=== PATIENT | female | born 1970 | race African-American/Black ===

== ENCOUNTER 2024-09-30 11:36 | Outpatient (CLI) | payer OTHER, SELFPAY ==
--- OUTSIDE RECORDS SUMMARY | 2024-09-30 11:41 | XMS_ITS | Clinical Summary ---
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 01/11/2016 Regular Well Visit/Exam 18-64 06/11/2024 06/11/2023, 07/03/2020 Pneumococcal vaccine <65 (3 of 3 - PPSV23 or PCV20) 06/15/2024 06/15/2019, 10/08/2018 Albumin Creatinine Ratio, Urine 11/03/2024 Dilated Eye Exam 02/15/2025 02/16/2024 eGFR 06/15/2025 06/15/2024, 05/18, 04/16/2024, Additional history exists Breast Cancer Screening-Mammogram 07/01/2025 07/01/2024, 07/01/2024, 05/02/2022, Additional history exists Lipid Panel 09/20/2025 09/20/2024, 10/16, 06/17/2023, Additional history exists Colon Cancer Screening-Colonoscopy 07/06/2030 07/06/2020 DTaP/Tdap/Td Vaccine (8 - Td or Tdap) 10/29/2032 10/29/2022, 12/31/2021, 10/08/2018, Additional history exists Colon Cancer Screening-CT Colonography Discontinued 07/06/2020 Colon Cancer Screening-DNA Stool Discontinued 07/06/20 20 Colon Cancer Screening-FIT Discontinued 07/06/2020 Colon Cancer Screening-Sigmoidoscopy Discontinued 07/06/2020 Zoster Vaccine Completed 08/22/2020, 05/19, 05/17/2020 Cervical Cancer Screening Discontinued 06/11/2023, Procedures Procedure Name Priority Date/Time Associated Diagnosis Comments BOTOX INJECTION Routine 07/22/2024 1:30 PM JET OPERATOR Intractable chronic migraine without aura and without status migrainosus EGFR STAT 06/15/2024 2:40 PM CDT DIABETIC EYE EXAM Routine 02/16/2024 2:0 5 PM CDT HEMOGLOBIN A1C Routine 11/04/2023 11:15 AM CDT Adrenal mass (HCC) Type 2 diabetes mellitus with other specified complication, unspecified whether assistant terminal manager insulin use (HCC) LIPID PANEL Routine 11/04/2023 11:15 AM CDT Adrenal mass (HCC) Type 2 diabetes mellitus with other specified complication, unspecified whether fci insulin use (HCC) ALBUMIN CREATININE RATIO, URINE Routine 11/04/2023 11:15 AM CDT Adrenal mass (HCC) Type 2 diabetes mellitus with other specified complication, unspecified whether assistant terminal manager insulin use (HCC) PAP AND HIGH RISK HPV, REFLEX TO GENOTYPING Routine 06/11/2023 11:48 AM CDT Encounter for screening for malignant neoplasm of cervix COLONOSCOPY Routine 07/06/2020 SCREENING MAMMOGRAM BILATERAL W LENY Routine 12/31/2016 12:28 PM CDT from Last 3 Months or Most Recently Relevant to Health Maintenance Results * Botox Injection (07/22/2024 1:30 PM JET OPERATOR) Narrative Ritika Treadwell - 07/22/2024 1:30 PM JET OPERATOR Ritika Treadwell 07/23/2024 12:25 PM Botox Injection Performed by: Xiomara Hernandez NP Authorized by: Xiomara Hernandez NP [place] Protocol: Consent Given by: Patient Timeout: prior to procedure the correct patient, procedure, and site was verified Procedure Details - Botox Injection: Procedure Details: See Botox flow sheet for details on injection sites and amounts. This can be found in Media and labeled BLVLE NEURO.BOTOX.PROCEDURE NOTES. Procedure Note Ritika Treadwell - 07/22/2024 1:30 PM CST Botox Injection Performed by: Xiomaar Hernandez NP Authorized by: Xiomara Hernandez NP [place] Protocol: Consent Given by: Patient Timeout: prior to procedure the correct patient, procedure, and site wasverified Procedure Details - Botox Injection: Procedure Details: See Botox flow sheet for details on injection sitesand amounts. This can be found in Media and labeled [email or web address].[email or web address].PROCEDURE NOTES. Xiomara Hernandez NP IN CLINIC/BEDSIDE ORDERABLES Final Result * eGFR (06/15/2024 2:40 PM CDT) eGFR >90 >=60 mL/min/1. 73 m2 Comment: Interpretive Data Reference Interval Normal >/= 90 mL/min/1.73m2 Mildly decreased* 60 - 89 mL/min/1.73m2 Mildly to moderately decreased 45 - 59 mL/min/1.73m2 Moderately to severely decreased 30 - 44 mL/min/1.73m2 Severely decreased 15 - 29 mL/min/1.73m2 Kidney Failure < 15 mL/min/1.73m2 *Relative to young adult level Estimated glomerular filtration rate is determined by the 2020 CKD-EPI equation recommended by the National Kidney Foundation (A Unifying Approach to GFR Estimation: Recommendations of the NKF-ASK Task Force on Reassessing the Inclusion of Race in Diagnosing Kidney Disease, JASN 2020). The CKD-EPI equation should not be used for patients with unstable renal function and has not been validated in children and those over 70. Current interpretive data was last reviewed 2021. Testing performed by: [facility], [address] [place] [address], [place]., [address] Blood 06/15/2024 2:40 PM CDT 06/15/2024 2:50 PM CDT us Chris Lopez Jr., MD LAB BLOOD ORDERABLES Fi nal Result Performing Organization Address City/[facility]/ZIP Co de Phone Number RAYMON [address] [facility] Department of Laboratories [place], [place] [id number] * Diabetic Eye Exam (02/16/2024 2:05 PM CDT) us Historical Provider HEALTH MAINTENANCE Final Result * (ABNORMAL) Albumin Creatinine Ratio, Urine (11/04/2023 11:15 AM CDT) Microalb, Ur 22.7 0.0 - 22.9 mg/L [facility] Random Urine Creatinine 60.7 mg/dL [facility] Microalb/Creat Ratio 37.4(H) 0.0 - 29.9 mg/g [facility] Urine 11/04/2023 11:1 5 AM CDT 11/04/2023 12:42 PM CDT us Bita Irby MD LAB URINE ORDERABLES Final Res ult Performing Organization Address City/[facility]/ZIP Co de Phone Number [facility] * (ABNORMAL) Hemoglobin A1c (11/04/2023 11:15 AM CDT) HbA1c 6.9(H) 5.1 - 5.6 % [facility] Comment: HBA1C 5.1 - 5.6 = NORMAL HBA1C 5.7 - 6.4 = PREDIABETES HBA1C >=6.5 = PROVISIONAL DIAGNOSIS OF DIABETES Estimated Average Glucose 151 mg/dL [facility] Blood 11/04/2023 11:1 5 AM CDT 11/04/2023 12:42 PM CDT Bita Irby MD LAB BLOOD ORDERABLES Final Res ult Performing Organization Address City/[facility]/ZIP Co de Phone Number [facility] * (ABNORMAL) Lipid panel (11/04/2023 11:15 AM CDT) Triglycerides 211(H) <150 mg/dL [facility] Comment: Desirable: <150 mg/dL, fasting <175 mg/dL, non-fasting Persistently elevated triglycerides may enhance atherosclerotic cardiovascular disease. Total Cholesterol 153 <200 mg/dL [facility] Total HDL-C Direct 54 >50 mg/dL [facility] Non-HDL cholesterol 99 <220 mg/dL [facility] Friedewald LDL Chol 57 <190 mg/dL [facility] Comment: The inaccuracy of the Friedewald equation at LDL Cholesterol less than 70 mg/dL has been documented. Various other calculations are under investigation, such as Noel De, et al. BRENNA Cardiol. 2020;5(5):540-548 or Jarvis SS et al. BRENNA Cardiol. 2018;3(8):749-753. Consider the use of non-HDL-c to estimate atherosclerotic cardiovascular disease risk. The Friedewald equation is accurate in most patients when triglycerides are less than 150 mg/dL. Consider the use of non-HDL-C or Apo B to help estimate atherosclerotic cardiovascular diesase risk if triglycerides are elevated. Blood 11/04/2023 11:1 5 AM CDT 11/04/2023 12:42 PM CDT Narrative [facility] - 11/04/2023 1:37 PM CDT Current interpretive data was last updated July 20, 2021. For adults ages 40-79, the ACC/AHA recommends discussing your 10-year atherosclerotic cardiovascular disease risk with your health care provider. https://www.acc.org/ASCVDApp Bita Irby MD LAB BLOOD ORDERABLES Final Res ult [facility] * Pap and High Risk HPV and Genotyping (Cytology Component) (06/11/2023 11:48 AM CDT) Endocervical (Pap test) 06/11/2023 11:48 AM CDT 06/13/2023 11:48 AM CDT Narrative [facility] - 06/17/2023 3:27 PM CDT [facility] Department of Pathology [address] [place] [address] Final Report with Addendum Note to Patients: This report may contain a detailed description of human tissue sent by a health care provider to the laboratory for pathologic evaluation. The content of this report is essential for diagnosis and may provide important critical findings. This information may be unfamiliar to patients to review without a medical professional present. It is advised that the patient review this report in the presence of a health care provider who can answer questions and explain the details. Patient Name: COLIN BOYD Address: [address] [place] [address] [address] [place] [address] Gender: F : 1970 (Age: 53) Service: Location: [facility] : [id number] [facility] #: [id number] Patient Type: [facility] SPECIMEN Taken: 06/11/2023 Received: 06/13/2023 Accessioned:: 06/13/2023 Reported: 06/17/2023 Physician(s): Edmond Bruno M.D. [facility] Diagnosis: SOURCE OF SPECIMEN SCREENING THIN PREP IMAGED PAP w/ HPV: STATEMENT OF ADEQUACY - Satisfactory for evaluation; endocervical/transformation zone component present - This case was rejected by computer assisted technology and was manually screened by a sales counselor GENERAL CATEGORIZATION: - Negative for intraepithelial lesion or malignancy LEVON Gong(ASCP)LEVON Lerma(ASCP) Report Electronically Reviewed and Signed Out By LEVON Lerma(ASCP) 06/17/2023 15:27:53Addenda: HPV Test Interpretation HPV HR 16- Not detected HPV HR 18- Not detected HPV HR non 16/18- Detected Interpretive Data Nucleic acid amplification for detection of high-risk Human Papilloma virus (HPV) is performed by the Bebe Andi 6800 HPV test. This assay specifically detects HPV-16 and HPV-18 genotypes. The following HPV genotypes are detected as high-risk HPV: HPV-31, 33, 35, 39, 45, 51, 52, 56, 58, 59, 66, and 68. This assay has been approved by the [place] Food and Drug Administration for detection of HPV in cervical specimens collected by a physician using an endocervical brush/spatula or cervical broom and placed in the ThinPrep Pap Test PreservCyt collection containers. The performance characteristics of this test have been verified by the [facility] Molecular Infectious Disease laboratory. Correlate with reported cytology results, as applicable. Interpretive data last revised 23 LEVON Lerma(ASCP)Report Electronically Reviewed and Signed Out By LEVON Lerma(ASCP) 06/16/2023 08:27:17 Specimen(s) Received: A: SCREENING THIN PREP IMAGED PAP w/ HPV Clinical History: Menstrual History: Hysterectomy Routine Checkup The Pap test is a screening test used to aid in the detection of cervical cancer and its precursors. It should not be the sole means by which malignant and premalignant lesions are diagnosed. Both false negative and false positive results may occur. It also has poor sensitivity for the detection of endometrial lesions and should not be used to evaluate suspected endometrial abnormalities. For these reasons it is most important to obtain Pap tests at regular intervals. The performance characteristics of some immunohistochemical stains, fluorescence in-situ hybridization tests and immunophenotyping by flow cytometry cited in this report (if any) were determined by the Surgical Pathology Department at [facility] as part of an ongoing quality process lead program and in compliance with federally mandated regulations drawn from the Clinical Laboratory Improvement Act of 1988 (CLIA '88). Some of these tests rely on the use of analyte specific reagents and are subject to specific labeling requirements by the US Food and Drug Administration. Such diagnostic tests may only be performed in a facility that is certified by the Department of Health and Human Services as a high complexity laboratory under CLIA '88. The FDA has determined that such clearance or approval is not necessary. This test is used for clinical purposes. It should not be regarded as investigational or for research. Nevertheless, federal rules concerning the medical use of analyte specific reagents require that the following disclaimer be attached to the report: This test was developed and [facility] performance characteristics [facility]. It has not been cleared or approved by the U. S. Food and Drug Administration. Edmond Bruno MD LAB CYTOLOGY ORDERABLES Final Result [facility] * Colonoscopy (07/06/2020) Anatomical Region Laterality Modality Other Historical Provider ENDOSCOPY PROCEDURES Zulma l Result from Last 3 Months or Most Recently Relevant to Health Maintenance Additional Health Concerns Infection Onset Date Last Indicated MDR gram neg/ESBL Comment:Patients who received care at a healthcare facility outside of the [place] will be placed in Contact Precautions until infection or colonization with specific highly resistant bacteria can be ruled out. Infection Prevention will arrange screening. Please contact Infection Prevention. 01/16/2024 01/16/2024 Insurance [employer] [facility] P[facility] Care Teams Historic Interpreter Relationship Specialty Start Date End Date Shruthi Modi MD [address] [facility] [place] [address] PCP - General Family Practice 10/24/21 Fabrizio Thomason Jr., MD Medical Oncologist/Hematologis t Medical Oncology 03/02/21 Dmityr Laguna MD [address] [facility] [place] [address] Referring Physician Endocrinology Diabetes & Metabolism 05/21/23
--- OUTSIDE RECORDS SUMMARY | 2024-09-30 11:41 | XMS_ITS | Encounter Summary ---
Author Organization [facility] Facility Care Team Providers Care Roll Mechanic Name Role Phone Paddy Riley MD, Fabrizio Unavailable [phone] Chris Mahmood DO Primary Care Provider + No, Physician Primary Care Provider [phone] Shruthi Modi MD Primary Care Provider Dmitry Laguna MD Unavailable [phone] Encounter Details Date Type Department Care Team (Latest Contact Info) Description 11/25/2016 Orders Only [facility] CLINCONV ProviderRay MD [address] [place] [id number] Social History Tobacco Use Types Packs/Day Years Used Date Smoking Tobacco: Never Assessed Comments Unknown Sex and Gender Information Value Date Recorded Sex Assigned at Not on file Legal Sex Female 6:55 AM SYSTEMS ENGINEERING MANAGER Gender Identity Female 07/23/2020 8:34 PM SYSTEMS ENGINEERING MANAGER Sexual Orientation Straight 07/23/2020 8: 34 PM SYSTEMS ENGINEERING MANAGER documented as of this encounter Plan of Treatment Not on file documented as of this encounter Procedures Procedure Name Priority Date/Time Associated Diagnosis Comments CARDIOLOGY REPORT 12/30/2016 12: 00 AM CDT documented in this encounter Results * CARDIOLOGY REPORT (12/30/2016 12:00 AM CDT) Anatomical Region Laterality Modality Other Narrative 12/30/2016 12:00 AM CDT Ordered by an unspecified provider. us Historical Provider [facility] Final Result documented in this encounter Visit Diagnoses Not on filedocumented in this encounter Additional Health Concerns Infection Onset Date Last Indicated Resolved Time COVID: Suspected 04/05/2021 04/10/2021 04/11/2021 12:24 AM CDT MDR gram neg/ESBL Comment:Patients who received care at a healthcare facility outside of the [place] will be placed in Contact Precautions until infection or colonization with specific highly resistant bacteria can be ruled out. Infection Prevention will arrange screening. Please contact Infection Prevention. 01/16/2024 01/16/2024 documented as of this encounter Care Teams Roll Mechanic Relationship Specialty Start Date End Date Chris Mahmood DO [address] [place] [id number] PCP - General Family Medicine 07/05/21 10/04/21 No, Physician PCP - General 10/15/21 10/23/21 Shruthi Modi MD [address] [place] [address] PCP - General Family Practice 10/24/21 Fabrizio Thomason Jr., MD Medical Oncologist/Hematologis t Medical Oncology 03/02/21 Dmitry Laguna MD [address] [facility] [place] [address] Referring Physician Endocrinology Diabetes & Metabolism 05/21/23 documented as of this encounter
--- OUTSIDE RECORDS SUMMARY | 2024-09-30 11:41 | XMS_ITS | Referral Summary ---
Author Organization [facility] Address [address] [place] [address] Care Team Providers Care [employer] Name Role Phone Paddy Riley MD, Fabrizio Unavailable [phone] Shruthi Modi MD Primary Care Provider Dmitry Laguna MD Unavailable [phone] Encounters Date Type Department Care Team Description 09/21/2024 Telephone [facility] Endocrinology Metabolism and Lipid [address] [facility] [address] 5th [place] [address] [place] [phone] Regla Gil, sales estimator Results 09/14/2024 Orders Only [facility] Medical [facility] Obstetrical Gynecology [address] [place] [address] [place] [phone] Edmond Bruno MD 09/14/2024 Telephone [facility] Obstetrical Gynecology [address] [place] [address] [address] [place] [address] Edmond Bruno MD 09/08/2024 Telephone [facility] Endocrinology Metabolism and Lipid [address] [facility] [address] [place] [phone] Regla Gil, DEWEY Follow-up 09/08/2024 10:40 AM AUDITOR INTERNAL Office Visit [facility] Endocrinology Metabolism and Lipid [address] [place] [address] [place] [address] Bita Irby MD Type 2 diabetes mellitus with hyperglycemia, without long-term current use of insulin (HCC) (Primary Dx); Osteopenia, unspecified location; Compression fracture of lumbar vertebra, unspecified lumbar vertebral level, sequela 08/31/2024 Telephone [facility] Endocrinology Metabolism and Lipid [address] [place] [address] [place] [address] Regla Gil RN CGM 07/22/2024 1:30 PM AUDITOR INTERNAL Procedure visit [facility] Medical Group Neurology [address] [facility] [address] [place] [address] Xiomara Hernandez NP Intractable chronic migraine without aura and without status migrainosus from Last 3 Months Allergies Active Allergy Reactions Criticality Noted Date [...] puff 2 (two) times a day 10/02/19 23 Active Auvelity 45-105 mg tablet, IR & ER, biphasic Take 1 tablet by mouth 2 (two) times a day Active cloNIDine (CATAPRES) 0.1 mg tablet 06/04/20 23 Active amLODIPine (NORVASC) 10 mg tablet 06/02/20 23 Active HYDROcodone-aceta minophen (NORCO) 5-325 mg per tablet Take 1 tablet by mouth 2 (two) times a day as needed 06/18/20 Active UribeL 118-10-40.8-36 mg capsule TAKE 1 CAPSULE BY MOUTH EVERY 6 HOURS NEEDED 10/28/19 Active prednisoLONE acetate (PRED FORTE) 1 % ophthalmic suspension 09/22/19 Active rimegepant (Nurtec ODT) tablet,disintegra ting Take 1 tablet (75 mg total) by mouth daily 4 tablet 01/21/20 Active cycloSPORINE (Vevye) 0.1 % drops 10/02/19 Active ondansetron ODT (ZOFRAN-ODT) 4 mg disintegrating tablet 01/11/20 Active Qelbree 200 mg capsule,extended release 24hr Take 2 capsules (400 mg total) by mouth daily 02/09/20 Active lancets (Accu-Chek Fastclix Lancet Drum) miscIndications:T ype 2 diabetes mellitus with hyperglycemia, without long-term current use of insulin (HCC) Use to check blood sugar 2-3 times per day. 102 each 11 03/02/20 Active blood glucose diagnostic (Accu-Chek Guide test strips) stripIndications: Type 2 diabetes mellitus with hyperglycemia, without long-term current use of insulin (HCC) Use to test blood sugar 2-3 times per day. 100 strip 11 03/02/20 Active baclofen (LIORESAL) 10 mg tablet Take 1 tablet (10 mg total) by mouth 3 (three) times a day as needed 03/09/20 Active galcanezumab-gnlm 120 mg/mL pen injector Inject 120 mg under the skin every 30 (thirty) days 1 mL 5 03/24/20 Active lancing device with lancets kit Use to check blood sugar 2-3 times per day. 03/02/20 Active galcanezumab-gnlm (Emgality Pen) 120 mg/mL pen injector Inject 120 mg under the skin every 30 (thirty) days 2 mL 05/17/20 Active apixaban 5 mg (74 tabs) tablets,dose [...] (twelve) hours Active blood-glucose meter,continuous (Dexcom G6 Manager Quality Compliance) misc Use as directed 1 each 09/08/19 [...] by mouth 2 (two) times a day 12/10/19 22 2024 Discontinued viloxazine HCl (QELBREE ORAL) 100 mg 2024 Discontinued tiZANidine (ZANAFLEX) 4 mg tablet Take 1 tablet (4 mg total) by mouth 2 (two) times a day 01/13/20 2024 Discontinued potassium chloride ER (KLOR-CON) 20 mEq CR tabletIndications :Low blood potassium Take 1 tablet (20 mEq total) by mouth daily 10 tablet 02/03/20 24 2024 Discontinued Lotemax SM 0.38 % drops,gel INSTILL 1 DROP INTO BOTH EYES THREE TIMES DAILY 02/13/20 24 2024 Discontinued Linzess 290 mcg capsule 01/20/20 24 2024 Discontinued dexAMETHasone (DECADRON) 1 mg tabletIndications :Adrenal mass (HCC) Take 1 tablet when directed 1 tablet 03/16/20 24 2024 Discontinued rimegepant (NURTEC ODT) tablet,disintegra ting Take [...] STARTING AFTER SURGERY. CONTINUE FOR 3 WEEKS 04/08/202024 Discontinued rimegepant (Nurtec ODT) tablet,disintegra ting Take [...] 09/09/2020 Assessment & Plan (09/09/2020 7:50 AM AUDITOR INTERNAL): Discussed CDC guideline for quarantine. Drink plenty [...] CDT): Patient is a former patient of [facility] being treated with combination migraine prophylaxis [...] year. Cardiac murmur 11/26/2016 Narcotic abuse, continuous ([facility]) 09/16/2016 Drug-seeking behavior 08/21/2016 IBS (irritable bowel syndrome) 01/02/2016 Beta thalassemia trait 08/14/2015 Acute nausea with nonbilious vomiting 12/08/2013 Anxiety 08/18/1999 Gastric ulcer 08/18/1999 Severe major depression 05/21/1993 High cholesterol Overview (06/11/2023): high triglicerides Resolved Problems Problem Noted Date Diagnosed Date Resolved Date IFG (impaired fasting glucose) 01/02/2016 11/04/2023 Immunizations Name Administration Dates Next Due DTaP 12/18/2015 Influenza, Quadrivalent, Rec ombinant, Egg Free, Preservative Free, Intramuscular 06/15/2019 Influenza, Quadrivalent, Spl it, Preservative Free, Intramuscular 06/12/2022,05/17/2020,05/22/2018,05/10 Influenza, Split 06/01/2010,09/06/2005 Influenza, Trivalent, IM (MDV) 05/22/2021,2016 Influenza, Trivalent, Preser vative Free, Intramuscular 07/18/2016,07/06/2015 Influenza, Unspecified 05/17/2020,2018,05/22/2018,06/01,09/06/2005 EyeNetra SARS-CoV-2 Monovalent Vaccination (12+ Yrs) AVILA-READY TO USE 12/27/2021 Pneumococcal Conjugate PCV 13 10/08/2018 Pneumococcal Polysaccharide PPV23 06/15/2019 Smallpox/monkeypox Vaccine, Live, Non-replicating (Jynneos) 03/29/2022 TD Preservative Free 01/01/2016,09/25/2004 Td, Adsorbed, Preservative F ree, Adult Use, Lf Unspecified 01/01/2016,09/25/2004 Td, adsorbed 09/25/2004 Tdap 12/31/2021,10/08/2018,12/18/2015 ZOSTER LIVE 06/15/2020 ZOSTER Recombinant 08/22/2020,05/17/2020 Social History Tobacco Use Types Packs/Day Years [...] on file Legal Sex 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 INTERNAL Gender Identity Female 07/23/2020 8:34 PM AUDITOR INTERNAL Sexual Orientation Straight 07/23/2020 8: 34 PM AUDITOR INTERNAL Last Filed Vital Signs Vital Sign Reading Time Taken Comments Blood Pressure 114/75 09/08/2024 11:09 AM AUDITOR INTERNAL Pulse 81 09/08/2024 11:09 AM AUDITOR INTERNAL Temperature 36.5 C (97.7 F) 09/08/2024 11:09 AM AUDITOR INTERNAL Respiratory Rate 16 06/15/2024 8:35 PM CDT Oxygen Saturation 100% 06/15/2024 8:35 PM CDT Inhaled Oxygen Concentration - - Weight 68 kg (150 lb) 09/08/2024 11:09 AM AUDITOR INTERNAL Height 167.6 cm (5' 6 ) 09/08/2024 11:09 AM AUDITOR INTERNAL Body Mass Index 24.21 09/08/2024 11:09 AM AUDITOR INTERNAL Plan of Treatment Not on file Procedures Procedure Name Priority Date/Time Associated Diagnosis Comments BOTOX INJECTION Routine 07/22/2024 1:30 PM AUDITOR INTERNAL Intractable chronic migraine without aura and without status migrainosus EGFR STAT 06/15/2024 2:40 PM CDT DIABETIC EYE EXAM Routine 02/16/2024 2:0 5 PM CDT HEMOGLOBIN A1C Routine 11/04/2023 11:15 AM CDT Adrenal mass (HCC) Type 2 diabetes mellitus with other specified complication, unspecified whether middle or 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 school 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 use (HCC) LIPID PANEL Routine 11/04/2023 11:15 AM CDT Adrenal mass (HCC) Type 2 diabetes mellitus with other specified complication, unspecified whether detention insulin use (HCC) ALBUMIN CREATININE RATIO, URINE Routine 11/04/2023 11:15 AM CDT Adrenal mass (HCC) Type 2 diabetes mellitus with other specified complication, unspecified whether 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 or 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 school 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 use (HCC) PAP AND HIGH RISK HPV, REFLEX TO GENOTYPING Routine 06/11/2023 11:48 AM CDT Encounter for screening for malignant neoplasm of cervix COLONOSCOPY Routine 07/06/2020 SCREENING MAMMOGRAM BILATERAL W LENY Routine 12/31/2016 12:28 PM CDT from Last 3 Months or Most Recently Relevant to Health Maintenance Results * Botox Injection (07/22/2024 1:30 PM AUDITOR INTERNAL) Narrative Ritika Treadwell - 07/22/2024 1:30 PM AUDITOR INTERNAL Ritika Treadwell 07/23/2024 12:25 PM Botox Injection Performed by: Xiomara Hernandez NP Authorized by: Xiomara Hernandez NP [place] Protocol: Consent Given by: Patient Timeout: prior to procedure the correct patient, procedure, and site was verified Procedure Details - Botox Injection: Procedure Details: See Botox flow sheet for details on injection sites and amounts. This can be found in Media and labeled BLVLE [email or web address].[email or web address].PROCEDURE NOTES. Procedure Note Ritika Treadwell - 07/22/2024 1:30 PM CST Botox Injection Performed by: Xiomara Hernandez NP Authorized by: Xiomara Hernandez NP [place] Protocol: Consent Given by: Patient Timeout: prior [...] was last reviewed 2021. Testing performed by: [facility], [address] [place] [address]., [id number] Blood 06/15/2024 2:40 PM CDT 06/15/2024 2:50 PM CDT us Chris Lopez Jr., MD LAB BLOOD ORDERABLES Fi nal Result Performing Organization Address [facility] Co de Phone Number RAYMON [address] [facility] Department [place] [address] * Diabetic Eye Exam (02/16/2024 2:05 PM [...] MD LAB URINE ORDERABLES Final Res ult [facility] * (ABNORMAL) [...] PM CDT us Bita Irby MD LAB BLOOD ORDERABLES Final Res ult [facility] * (ABNORMAL) [...] calculations are under investigation, such as Noel De et al. BRENNA Cardiol. 2020;5(5):540-548 or Jarvis [...] AM CDT 11/04/2023 12:42 PM CDT Narrative [facility] - 11/04/2023 1:37 PM CDT Current interpretive data was last updated July 20, 2021. For adults ages 40-79, the ACC/AHA recommends discussing your 10-year atherosclerotic cardiovascular disease risk with your health care provider. https://www.acc.org/ASCVDApp us Bita Irby MD LAB BLOOD ORDERABLES Final Res ult [facility] * Pap and High Risk HPV and Genotyping (Cytology Component) (06/11/2023 11:48 AM CDT) Endocervical (Pap test) 06/11/2023 11:48 AM CDT 06/13/2023 11:48 AM CDT Narrative PATHOLOGY [facility] - 06/17/2023 3:27 PM CDT [facility] Department of Pathology [address] [place], [place] [id number] Final Report with Addendum Note to Patients: [...] the details. Patient Name: COLIN BOYD Address: [address] [place] [address] [address] RICH[address] [place] [address] Gender: F : 1970 (Age: 53) Service: Location: [facility] : [id number] [facility] #: [id number] Patient Type: [facility] SPECIMEN Taken: 06/11/2023 Received: 06/13/2023 Accessioned:: 06/13/2023 Reported: 06/17/2023 Physician(s): Edmond Bruno M.D. [facility] Diagnosis: SOURCE OF SPECIMEN SCREENING THIN PREP IMAGED PAP w/ HPV: STATEMENT OF ADEQUACY - Satisfactory for evaluation; endocervical/transformation zone component present - This case was rejected by computer assisted technology and was manually screened by a ccna GENERAL CATEGORIZATION: - Negative for intraepithelial lesion [...] this test have been verified by the [facility] Molecular Infectious Disease laboratory. Correlate with reported [...] determined by the Surgical Pathology Department at [facility] as part of an ongoing quality assurance coordinator program and in compliance with federally mandated [...] characteristics determined by the Surgical Pathology Department [facility]. It has not been cleared or approved by the U. S. Food and Drug Administration. Edmond Bruno MD LAB CYTOLOGY ORDERABLES Final Result PATHOLOGY [facility] * Colonoscopy (07/06/2020) Anatomical Region [...] Please contact Infection Prevention. 01/16/2024 01/16/[address] [place] [address] [place] [address] [facility] PPO [facility] PPO [facility] Care Teams [employer] Relationship Specialty Start Date End Date Shruthi Modi MD [address] [facility] [place] [address] PCP - General Family Practice 10/24/21 Fabrizio Thomaosn Jr., MD Medical Oncologist/Hematologis t Medical Oncology 03/02/21 Dmitry Laguna MD [address] [facility] [place] [address] Referring Physician Endocrinology Diabetes & Metabolism 05/21/23
--- OUTSIDE RECORDS SUMMARY | 2024-09-30 11:41 | XMS_ITS | Patient Health Summary ---
Author Organization [facility] Address [address] [place] [address] Care Team Providers Care Can Closing Machine Tender Name Role Phone Charlene Murillo MD Unavailable [phone] Lenin Frances MD Unavailable [phone] Sylvester Brown MD Unavailable [phone] Cornell Bingham MD Unavailable [phone] Pcp, [address] Primary Care Provide r Unavailable Note from [facility],non-owned Affiliates and Associated Physician Practices is amultiple site organization consisting of ambulatory clinics and hospital sitesin [place], [place], [place] and [place]. This disclosure is being madepursuant to the Care Everywhere program and may not contain all information available regarding this patient. Last updated 18.[facility] Allergies * Prochlorperazine(Tolerates phenergan, Feels jittery, like 'bugs crawling under skin'. Trouble sitting still) * Dhea(Other) * Dihydroergotamine(Causes HTN) * Haloperidol * Sumatriptan * Droperidol(Itching) * Metoclopramide * Sulfa Drugs(Anaphylaxis) -High Criticality * Ketorolac(Causes ulcers in her stomach to get worse. Not truly allergic.) Medications * Be aware that medications may not be up to date on this document. Alwaysverify current medications with the patient. * oogfthsxnl-ugasgyeyssqrq-hpmgtfsk (FIORICET) 50-300-40 MG capsule Take 1 Cap by mouth every 4 hours as needed for Headache * furosemide (LASIX) 20 MG tablet(Started 03/12/2018) Take 1 tablet by mouth once daily 5 refills left * fenofibrate (TRICOR) 145 MG tablet(Started 02/18/2018) Take 1 tablet by mouth at bedtime * rosuvastatin (CRESTOR) 10 MG tablet(Started 02/20/2018) Take 1 tablet by mouth at bedtime 5 refills left * latanoprost (XALATAN) 0.005 % ophthalmic solution(Started 01/16/2018) Instill 1 drop into both eyes at bedtime 6 refills left * zolpidem (AMBIEN) 10 MG tablet(Started 10/08/2018) Take 1 tablet by mouth nightly as needed for Insomnia Reasons: Trouble Sleeping * escitalopram (LEXAPRO) 20 MG tablet(Started 10/08/2018) Take 1.5 tablets by mouth once daily * amLODIPine (NORVASC) 10 MG tablet(Started 12/18/2018) Take 10 mg by mouth once daily * Estradiol (IMVEXXY STARTER PACK) 10 MCG INST Insert 10 mcg into the vagina * vitamin D, ergocalciferol, (DRISDOL) 1.25 MG (96367 UT) capsule Take 50,000 Units by mouth every 30 days * FOLIC ACID PO * oxyCODONE-acetaminophen (PERCOCET) 5-325 MG tablet(Started 08/02/2019) Take 1 tablet by mouth every 4 hours as needed for Pain * spironolactone (ALDACTONE) 25 MG tablet(Started 10/12/2019) * propranolol CR 24hr (INDERAL LA) 120 MG capsule Take 120 mg by mouth once daily * hydrALAZINE (APRESOLINE) 25 MG tablet Take 25 mg by mouth 3 times daily take 3 tablets three times a day * ARIPiprazole (ABILIFY) 20 MG tablet Take 20 mg by mouth once daily * atomoxetine (STRATTERA) 80 MG capsule Take 80 mg by mouth every morning * topiramate (TOPAMAX) 100 MG tablet Take 100 mg by mouth 2 times daily * fremanezumab-vfrm (AJOVY) 225 MG/1.5ML injection(Started 12/15/2019) Inject 225 mg subcutaneously every 30 days Reasons: Migraine Headache * ipratropium (ATROVENT) 0.03 % nasal spray(Started 12/15/2019) [place] 1 spray into each nostril 2 times daily 5 refills by 12/14/2020 * azelastine (ASTELIN) 0.1 % nasal spray(Started 12/15/2019) U 2 SPRAYS IEN BID 5 refills by 12/14/2020 * esomeprazole (NEXIUM) 40 MG capsule(Started 03/10/2020) Take 1 capsule by mouth once daily as needed FOR HEARTBURN 1 refill by 03/10/2021 * buPROPion XL 24hr (WELLBUTRIN-XL) 150 MG tablet(Started 05/15/2020) TK 1 T PO QD IN THE MORNING * clobetasol (TEMOVATE) 0.05 % cream(Started 03/03/2019) Apply to affected area 2 times daily * diclofenac sodium (SOLARAZE) 3 % gel(Started 06/08/2020) Apply 2 to 4 grams to the affected area twice daily * diclofenac sodium XR 24hr (VOLTAREN XR) 100 MG tablet(Started 05/12/2020) Take 100 mg by mouth 2 times daily * hydrocortisone (HYTONE) 2.5 % ointment(Started 01/11/2020) PAMELA 1 GRAM AA BID PRN * lidocaine (XYLOCAINE) 5 % ointment(Started 05/11/2020) APPLY AA D FOR PAIN * NARCAN 4 MG/0.1ML nasal spray(Started 01/27/2020) USE 1 SPRAY IN THE NOSTRILS DIRECTED * ondansetron (ZOFRAN) 8 MG tablet(Started 06/14/2020) TK 1 T PO BID PRN * lisinopril (PRINIVIL; ZESTRIL) 20 MG tablet(Started 06/08/2020) Take 20 mg by mouth 2 times daily Active Problems Problem Noted Date Diagnosed Date Chronic bilateral thoracic back pain 08/02/2019 Thalassemia trait 12/24/2016 Immunizations * INFLUENZA VACCINE(Given 05/17/2020, 05/22/2018, 05/25/2017, 07/18/2016, 07/06/2015, 05/10/2014, 06/01/2010, 09/06/2005) * INFLUENZA VACCINE, QUADR. (FLUZONE; FLULAVAL; FLUARIX; AFLURIA QUADRIVALENT; 6MO+), 0.5 ML (IIV4)(Given 05/17/2020) * PNEUMOCOCCAL PPSV23(Given 06/15/2019) * Pneumococcal Pcv13 Conj(Given 10/08/2018) * TD (AGE 7-ADULT)(Given 09/25/2004) * TDAP (7yrs+)(Given 10/08/2018, 12/18/2015) * Zoster Hzv Vacc Recombinant Inj Im(Given 08/22/2020, 05/17/2020) * iNFLUENZA VACCINE, RECOM-NGUYEN, QUADR. (FLUBLOCK QUADRIVALENT; 18Y+) (RIV4)(Given 06/15/2019) Social History Tobacco Use Types Packs/Day Years Used Date Smoking Tobacco: Every Day Cigarettes 0.5 7 Smokeless Tobacco: Never Tobacco Cessation:Ready to Q uit: No; Counseling Given: Yes Alcohol Use Standard Drinks/Week Comments Not Currently 0 (1 standard drink = 0.6 oz pur e alcohol) Sex and Gender Information Value Date Recorded Sex Assigned at Not on file Gender Identity Not on file Sexual Orientation Not on file Last Filed Vital Signs Vital Sign Reading Time Taken Comments Blood Pressure 120/74 06/27/2020 11:23 AM PLASTIC CABLEMAKING MACHINE OPERATOR Pulse 60 06/27/2020 11:23 AM PLASTIC CABLEMAKING MACHINE OPERATOR Temperature 35.7 C (96.3 F) 06/27/2020 11:23 AM PLASTIC CABLEMAKING MACHINE OPERATOR Respiratory Rate 14 06/27/2020 11:23 AM PLASTIC CABLEMAKING MACHINE OPERATOR Oxygen Saturation 100% 06/27/2020 11:23 AM PLASTIC CABLEMAKING MACHINE OPERATOR Inhaled Oxygen Concentration - - Weight 70.8 kg (156 lb) 06/27/2020 11:23 AM PLASTIC CABLEMAKING MACHINE OPERATOR Height 167.6 cm (5' 6 ) 06/27/2020 11:23 AM PLASTIC CABLEMAKING MACHINE OPERATOR Body Mass Index 25.18 06/27/2020 11:23 AM PLASTIC CABLEMAKING MACHINE OPERATOR Procedures * URINALYSIS - POINT OF CARE(Performed 06/15/2019) Performed for Dysuria * PAP IG LB + HPV HR(Performed 11/05/2018) Performed for Well woman exam with routine gynecological exam * LIPID PROFILE(Performed 10/08/2018) * COMPREHENSIVE METABOLIC PANEL(Performed 10/08/2018) * CBC W AUTO DIFFERENTIAL(Performed 12/24/2016) * BASIC METABOLIC PANEL (CALCIUM TOTAL)(Performed 12/24/2016) * CBC W AUTO DIFFERENTIAL(Performed 12/24/2016) * CT ABDOMEN PELVIS WO CONTRAST(Performed 12/24/2016) * URINALYSIS REFLEX TO MICROSCOPIC NO CULTURE(Performed 12/24/2016) * CARDIAC EKG ORDER(Performed 12/23/2016) * ED GENERAL PROCEDURE(Performed 12/21/2016) * TROPONIN I(Performed 12/21/2016) * CARDIAC EKG ORDER(Performed 12/20/2016) * URINE MICROSCOPIC ONLY(Performed 12/20/2016) * URINALYSIS REFLEX TO MICROSCOPIC NO CULTURE(Performed 12/20/2016) * EKG 12-LEAD(Performed 12/20/2016) Performed for Dizziness * MAGNESIUM BLOOD(Performed 12/20/2016) * TROPONIN I(Performed 12/20/2016) * COMPREHENSIVE METABOLIC PANEL(Performed 12/20/2016) * CBC W AUTO DIFFERENTIAL(Performed 12/20/2016) * CARDIAC EKG ORDER(Performed 12/20/2016) * TROPONIN I(Performed 12/20/2016) * COMPREHENSIVE METABOLIC PANEL(Performed 12/19/2016) * CBC W AUTO DIFFERENTIAL(Performed 12/19/2016) * TROPONIN I(Performed 12/19/2016) * EKG 12-LEAD(Performed 12/19/2016) Performed for Other chest pain * CBC W AUTO DIFFERENTIAL(Performed 12/19/2016) * COMPREHENSIVE METABOLIC PANEL(Performed 12/18/2016) * TROPONIN I(Performed 12/18/2016) * XR CHEST 2VW(Performed 12/18/2016) Performed for Other chest pain * EKG 12-LEAD(Performed 12/18/2016) Performed for Other chest pain * CARDIAC EKG ORDER(Performed 12/17/2016) * CARDIAC RHYTHM STRIP ORDER(Performed 12/17/2016) * TROPONIN I(Performed 12/15/2016) Performed for Chest pain, unspecified type * EKG 12-LEAD(Performed 12/15/2016) Performed for Chest pain, unspecified type * CBC W AUTO DIFFERENTIAL(Performed 12/15/2016) Performed for HTN (hypertension) with goal to be determined * BASIC METABOLIC PANEL (CALCIUM TOTAL)(Performed 12/15/2016) Performed for HTN (hypertension) with goal to be determined * EKG 12-LEAD(Performed 12/14/2016) Performed for Chest pain, unspecified type * TROPONIN I(Performed 12/14/2016) * COMPREHENSIVE METABOLIC PANEL(Performed 12/13/2016) * TROPONIN I(Performed 12/13/2016) * SLIDE SCAN HEMATOLOGY(Performed 12/13/2016) * CBC W AUTO DIFFERENTIAL(Performed 12/13/2016) * TROPONIN I(Performed 12/13/2016) * EKG 12-LEAD(Performed 12/13/2016) Performed for Chest pain, unspecified type * OXYGEN(Performed 12/13/2016) * CARDIAC EKG ORDER(Performed 12/12/2016) * CARDIAC RHYTHM STRIP ORDER(Performed 12/12/2016) * CT HEAD WO CONTRAST(Performed 12/10/2016) Performed for Nonintractable headache, unspecified chronicity pattern, unspecified headache type * TROPONIN I(Performed 12/10/2016) Performed for Chest pain, unspecified type * ED CRITICAL CARE(Performed 12/10/2016) Performed for HTN (hypertension), malignant * TROPONIN I(Performed 12/10/2016) * TROPONIN I(Performed 12/10/2016) * XR CHEST 2VW(Performed 12/10/2016) Performed for Chest pain, unspecified type * URINE DRUG SCREEN IMMUNOASSAY(Performed 12/10/2016) * URINALYSIS REFLEX MICROSCOPIC REFLEX CULTURE(Performed 12/10/2016) * SLIDE SCAN HEMATOLOGY(Performed 12/10/2016) * COMPREHENSIVE METABOLIC PANEL(Performed 12/10/2016) * CBC W AUTO DIFFERENTIAL(Performed 12/10/2016) * TROPONIN I(Performed 12/10/2016) * EKG 12-LEAD(Performed 12/09/2016) Performed for Chest pain, unspecified type * CT HEAD WO CONTRAST(Performed 05/05/2014) * XR CHEST 1VW PORTABLE(Performed 05/05/2014) * TROPONIN I(Performed 05/05/2014) * CK + CKMB PANEL(Performed 05/05/2014) * DRUG ABUSE PANEL 10-20+ETHANOL URINE NO CONFIRM(Performed 05/05/2014) * URINALYSIS REFLEX TO MICROSCOPIC NO CULTURE(Performed 05/05/2014) * RBC MORPHOLOGY(Performed 05/05/2014) * CBC W AUTO DIFFERENTIAL(Performed 05/05/2014) * CBC W AUTO DIFFERENTIAL(Performed 05/05/2014) * BASIC METABOLIC PANEL (CALCIUM TOTAL)(Performed 05/05/2014) Results * URINALYSIS - POINT OF CARE (06/15/2019) Clarity UA POCT yellow Color UA POCT yellow Leukocyte UA neg Negative Nitrite UA POCT neg Negative Urobilinogen UA 0.2 0.1 - 1.0 Protein UA POCT neg Negative pH UA 6.0 5.0 - 8.0 pH units Blood UA neg Negative Specific [place] UA POCT 1.020 1.002 - 1.030 Ketone UA neg Negative Bilirubin UA POCT neg Negative Glucose UA neg Negative Urine URINE / Unknown 06/15/2019 Williams Avalos MD LAB - POINT OF CARE ORDERABLES * (ABNORMAL) PAP IG LB + HPV HR (11/05/2018 2:32 PM CDT) Diagnosis (A) [facility] INSURANCE BILL Comment: EPITHELIAL CELL ABNORMALITY. LOW-GRADE SQUAMOUS INTRAEPITHELIAL LESION (LSIL) (VAGINAL). Recommendation (A) [facility] INSURANCE BILL Comment:Suggest follow up as clinically appropriate. Specimen Adequacy [facility] INSURANCE BILL Comment:Satisfactory for giuliano luation. Clinician Provided ICD10 [facility] INSURANCE BILL Comment: Z01.419 Z12.31 Performed by [facility] INSURANCE BILL Comment:Francis Croft, Cyto technologist (ASCP) Electronically Signed by [facility] INSURANCE BILL Comment:Hortencia Lamas MD, Pathologist Comment . [facility] INSURANCE BILL Pathologist Provided ICD10 [facility] INSURANCE BILL Comment:R87.622 Note [facility] INSURANCE BILL Comment: The Pap smear is a screening test designed to aid in the detection of premalignant and malignant conditions of the uterine cervix. It is not a diagnostic procedure and should not be used as the sole means of detecting cervical cancer. Both false-positive and false-negative reports do occur. . [facility]BP CPT Code Automation [facility] INSURANCE BILL Comment: This liquid based ThinPrep(R) pap test was screened with the use of an image guided system. Human papillomavirus High Risk Positive( A) Negative [facility] INSURANCE BILL Comment: This high-risk HPV test detects thirteen high-risk types (16/18/31/33/35/39/45/51/52/56/58/59/68) without differentiation. . Pathology/Cytolog y PART OF UTERINE CERVIX / Unknown 11/05/2018 2:32 PM CDT 11/05/2018 Narrative [facility] INSURANCE BILL - 11/09/2018 3:09 PM CDT Dates / Results....previous hysterectomy No. of containers..01 ThinPrep Vial Resulting Agency Comment [address] [place] [phone] Natali Whiteside PSYCHOLOGIST DEVELOPMENTAL-BACKEND DEVELOPER LAB - PATHOLOGY/CY TOLOGY ORDERABLES [facility] INSURANCE BILL [address] [place] [address] * COMPREHENSIVE METABOLIC PANEL (10/08/2018 1:18 PM PLASTIC CABLEMAKING MACHINE OPERATOR) Only the most recent of6 resultswithin the time period is included. Glucose 98 74 - 106 mg/dL [facility] INSURANCE BILL BUN 17 7 - 21 mg/dL [facility] INSURANCE BILL Creatinine 0.79 0.50 - 1.30 mg/dL [facility] INSURANCE BILL eGFR by MDRD >60 >60 mL/min/1.7 3m2 [facility] INSURANCE BILL eGFR by MDRD >60 >60 mL/min/1.7 3m2 [facility] INSURANCE BILL Sodium 141 136 - 145 mmol/L [facility] INSURANCE BILL Potassium 4.2 3.5 - 5.1 mmol/L [facility] INSURANCE BILL Chloride 106 98 - 107 mmol/L [facility] INSURANCE BILL CO2 27 22 - 31 mmol/L [facility] INSURANCE BILL Calcium 10.0 8.5 - 10.1 mg/dL [facility] INSURANCE BILL Protein Total 8.0 6.4 - 8.2 gm/dL [facility] INSURANCE BILL Albumin 4.6 3.4 - 5.0 gm/dL [facility] INSURANCE BILL Bilirubin Total 0.6 0.2 - 1.0 mg/dL [facility] INSURANCE BILL Alkaline Phosphatase 108 38 - 126 U/L [facility] INSURANCE BILL AST 15 5 - 40 U/L [facility] INSURANCE BILL ALT 20 13 - 61 U/L [facility] INSURANCE BILL Comment:FASTING 10/08/2018 1:18 PM PLASTIC CABLEMAKING MACHINE OPERATOR 10/08/2018 Narrative Resulting Agency Comment [address] [phone] Williams Avalos MD LAB - CHEMISTRY KAREN HOLLINS [facility] INSURANCE BILL [address] [place] [address] * LIPID PROFILE (10/08/2018 1:18 PM PLASTIC CABLEMAKING MACHINE OPERATOR) Cholesterol 166 <200 mg/dL [facility] INSURANCE BILL Triglycerides 113 <150 mg/dL [facility] INSURANCE BILL HDL Cholesterol 69 >40 mg/dL [facility] INSURANCE BILL VLDL Calculated 23 <=30 mg/dL [facility] INSURANCE BILL LDL Calculated 74 <130 mg/dL [facility] INSURANCE BILL Comment:FASTING 10/08/2018 1:18 PM PLASTIC CABLEMAKING MACHINE OPERATOR 10/08/2018 Narrative Resulting Agency Comment [facility] [address] [facility] [phone] Williams Avalos MD LAB - CHEMISTRY KAREN HOLLINS [facility] INSURANCE BILL [address] [place] [address] * (ABNORMAL) CBC W AUTO DIFFERENTIAL (12/24/2016 7:20 PM CDT) Only the most recent of10 resultswithin the time period is included. Pathologist [facility] WBC 9.1 3.5 - 10.5 10 3/uL [facility] RBC 5.33(H) 3.90 - 5.00 10 6/uL [facility] Hemoglobin 11.1(L) 12.0 - 15.5 g/dL [facility] Hematocrit 33.6(L) 35.0 - 45.0 % [facility] MCV 63.0(L) 81.0 - 97.0 fL [facility] MCH 20.8(L) 28.0 - 34.0 pg [facility] MCHC 33.0 32.0 - 36.0 g/dL [facility] Platelet Count 261 150 - 400 10 3/uL [facility] RDW-SD 41.5 36.0 - 50.0 fL [facility] RDW-CV 18.7(H) 11.2 - 14.8 % [facility] MPV 10.3 9.3 - 12.8 fL [facility] nRBC Absolute 0.00 0 10 3/uL [facility] nRBC Auto 0.0 0 /100 WBC [facility] Neutrophils % 63.6 35.0 - 70.0 % [facility] Lymphocytes % 29.6 19.7 - 55.1 % [facility] Monocytes % 6.1 3.0 - 15.0 % [facility] Eosinophils % 0.6 0.0 - 6.0 % [facility] Basophil % 0.1 0.0 - 1.5 % [facility] Neutrophils Absolute 5.8 1.6 - 7.0 10 3/uL [facility] Lymphocyte Absolute 2.7 0.8 - 2.9 10 3/uL [facility] Monocytes Absolute 0.55 0.14 - 0.66 10 3/uL [facility] Eosinophils Absolute 0.05 0.00 - 0.22 10 3/uL [facility] Basophils Absolute 0.01 0.00 - 0.06 10 3/uL [facility] Immature Granulocytes % 0.4 0.0 - 1.0 % [facility] Blood specimen (specimen) BLOOD SPECIMEN / Unknown 12/24/2016 7:20 PM CDT 12/24/2016 7:24 PM CDT Ivan Villanueva MD LAB - HEMATOLOGY ORD ERABLES [address] [phone] * (ABNORMAL) BASIC METABOLIC PANEL (CALCIUM TOTAL) (12/24/2016 7:20 PM CDT) Only the most recent of3 resultswithin the time period is included. BUN 15 7 - 26 mg/dL [facility] Creatinine 0.5(L) 0.6 - 1.2 mg/dL [facility] Sodium 142 136 - 145 mmol/L [facility] Potassium 4.8(H) 3.5 - 4.5 mmol/L [facility] Comment:Hemolysis detected i n this specimen. Hemolysis is known to cause elevations in this analyte. Caution should be exercised in the interpretation of this result. Recommend repeat testing if clinically indicated. Chloride 106 98 - 107 mmol/L [facility] CO2 26 22 - 29 mmol/L [facility] Glucose 90 70 - 115 mg/dL [facility] Calcium 9.0 8.4 - 10.2 mg/dL [facility] Anion Gap 15 8 - 18 [facility] BUN/Creatinine Ratio 30(H) 7 - 23 [facility] Osmolality Calculated 294 270 - 300 mOsm/kg [facility] eGFR >60 >60 mL/min/1. 73 m2 [facility] Blood specimen (specimen) BLOOD SPECIMEN / Unknown 12/24/2016 7:20 PM CDT 12/24/2016 7:24 PM CDT Ivan Villanueva MD LAB - CHEMISTRY KAREN HOLLINS [facility] Organization Address City/State/ZIP Co de Phone Number [facility] [address] [place] [address] * CT ABDOMEN PELVIS WO CONTRAST (12/24/2016 6:49 PM CDT) Anatomical Region Laterality Modality Abdomen, Pelvis Other Impressions 12/25/2016 7:53 AM CDT IMPRESSION: Nonobstructing 3 mm calculus in the right kidney midpole. No obstructing calculus, hydronephrosis or hydroureter. Report dictated by Rose Greene M.D. (Resident). I, Dr. MARTINEZ THOMAS M.D. have personally reviewed and interpreted this examination/study. This report was electronically signed by MARTINEZ THOMAS M.D. on 12/25/2016 7:53 AM . Narrative 12/25/2016 7:53 AM CDT EXAMINATION: Computed tomography (CT) of the abdomen and pelvis without contrast HISTORY: 46-year-old female with right flank pain. Concern for renal stones. TECHNIQUE: CT of the abdomen and pelvis was performed without the administration of intravenous contrast according to renal stone protocol. COMPARISON: No prior study is available for comparison. FINDINGS: Abdomen/Pelvis: Evaluation of abdominopelvic organs and vascular structures is limited due to lack of intravenous contrast. No focal intrahepatic lesions are seen. The gallbladder is normal without evidence of wall thickening, pericholecystic fluid, or gallstones. The intrahepatic and extrahepatic bile ducts are nondilated. The spleen, pancreas, and adrenal glands appear normal. A 3 mm nonobstructing stone is present in the right kidney midpole. No stones are seen in the left kidney. There is no hydronephrosis or hydroureter. No intravesical calculi are seen. The distal esophagus is nondilated. The stomach is normal. The small and large bowel loops are normal in caliber without evidence of wall thickening or obstruction. A normal appendix is identified in the right lower quadrant (image 13 series 5). There is no retroperitoneal lymphadenopathy. No free air or free fluid is identified within the abdomen. The urinary bladder is distended with fluid and appears normal. There is no free pelvic fluid. The patient is status post hysterectomy. No pelvic lymphadenopathy is identified. Other: The visualized lung bases are clear. The imaged heart size is within normal limits. There is no pericardial effusion. The unenhanced abdominal aorta is normal in course and caliber. There is mild atherosclerotic calcification in the infrarenal abdominal aorta. Bone windows demonstrate no suspicious lytic or blastic lesions. There is mild facet joint osteoarthritis in the lower lumbar spine. Procedure Note Martinez Thomas MD - 11/14/2017 EXAMINATION: Computed tomography (CT) of the abdomen and pelvis withoutcontrast HISTORY: 46-year-old female with right flank pain. Concern for renalstones. TECHNIQUE: CT of the abdomen and pelvis was performed without theadministration of intravenous contrast according to renal stoneprotocol. COMPARISON: No prior study is available for comparison. FINDINGS: Abdomen/Pelvis: Evaluation of abdominopelvic organs and vascular structures is limited dueto lack of intravenous contrast. No focal intrahepatic lesions are seen. The gallbladder is normal withoutevidence of wall thickening, pericholecystic fluid, or gallstones. Theintrahepatic and extrahepatic bile ducts are nondilated. The spleen,pancreas, and adrenal glands appear normal. A 3 mm nonobstructing stone is present in the right kidneymidpole. No stones are seen in the left kidney. There is no hydronephrosisor hydroureter. No intravesical calculi are seen. The distal esophagus is nondilated. The stomach is normal. The small andlarge bowel loops are normal in caliber without evidence of wallthickening or obstruction. A normal appendix is identified in the rightlower quadrant (image 13 series 5). There is no retroperitoneal lymphadenopathy. No free air or free fluid isidentified within the abdomen. The urinary bladder is distended with fluid and appears normal. There isno free pelvic fluid. The patient is status post hysterectomy. No pelviclymphadenopathy is identified. Other: The visualized lung bases are clear. The imaged heart size is withinnormal limits. There is no pericardial effusion. The unenhanced abdominal aorta is normal in course and caliber. There ismild atherosclerotic calcification in the infrarenal abdominal aorta. Bone windows demonstrate no suspicious lytic or blastic lesions. There ismild facet joint osteoarthritis in the lower lumbar spine. IMPRESSION IMPRESSION: Nonobstructing 3 mm calculus in the right kidney midpole. No obstructingcalculus, hydronephrosis or hydroureter. Report dictated by Rose Greene M.D. (Resident). I, Dr. MARTINEZ THOMAS M.D. have personally reviewed and interpreted thisexamination/study. This report was electronically signed by MARTINEZ THOMAS M.D. on12/25/2016 7:53 AM . Ivan Villanueva MD CT ORDERABLES * (ABNORMAL) URINALYSIS REFLEX TO MICROSCOPIC NO CULTURE (12/24/2016 6:10 PM CDT) Only the most recent of3 resultswithin the time period is included. Color UA Brown(A) Straw, Yellow, Colorless, Light Yellow [facility] Clarity UA Hazy(A) Clear [facility] Specific [place] UA 1.029 1.001 - 1.030 [facility] pH UA 6.0 5.0 - 8.0 [facility] Protein UA 20 <=20 mg/dL [facility] Comment:Checked Glucose UA Negative Negative mg/dL [facility] Ketone UA Negative Negative mg/dL [facility] Bilirubin UA Negative Negative mg/dL [facility] Blood UA Negative Negative [facility] Nitrite UA Negative Negative [facility] Leukocyte Esterase Negative Negative [facility] Urobilinogen UA 2.0 <2.0 mg/dL [facility] RBC UA 5 0 - 8 /HPF [facility] Bacteria UA Rare Rare, Occasional, None /HPF [facility] Mucus UA Many(A) None /LPF [facility] Hyaline Casts UA 2 0 - 2 /LPF [facility] Calcium Oxalate UA Many(A) Rare, Occasional, Few, None /HPF [facility] Urine specimen (specimen) 12/24/2016 6:10 PM CDT 12/24/2016 6:15 PM CDT Ivan Villanueva MD LAB - [place]IN[place] [address], [facility] [phone] * CARDIAC EKG ORDER (12/23/2016 10:26 PM CDT) Only the most recent of5 resultswithin the time period is included. Narrative 12/23/2016 10:26 PM CDT Ordered by an unspecified provider. Scanned Document CARDIAC SERVICES ORD ERABLES * ED GENERAL PROCEDURE (12/21/2016 12:30 AM CDT) Narrative Boone Nixon DO - 12/21/2016 12:30 AM CDT Boone Nixon DO 12/21/2016 12:30 AM Left EJ Date/Time: 12/20/2016 8:42 AM Performed by: BOONE NIXON Authorized by: BOONE NIXON Consent: Verbal consent obtained. Risks and benefits: risks, benefits and alternatives were discussed Consent given by: patient Patient understanding: patient states understanding of the procedure being performed Patient identity confirmed: verbally with patient Preparation: Patient was prepped and draped in the usual sterile fashion. Local anesthesia used: no Anesthesia: Local anesthesia used: no Sedation: Patient sedated: no Patient tolerance: Patient tolerated the procedure well with no immediate complications Comments: 18 gauge IV placed in the left EJ. Boone Nixon DO PROCEDURE/MINOR SURG ICAL ORDERABLES * TROPONIN I (12/21/2016 12:00 AM CDT) Only the most recent of14 resultswithin the time period is included. Troponin I <0.015 0.000 - 0.049 ng/mL 12/21/2016 12:37 AM CDT [facility] Blood BLOOD SPECIMEN / Unknown Venipuncture / Unknown 12/21/2016 12/21/2016 12:22 AM CDT Narrative [facility] - 12/21/2016 12:37 AM CDT Note: Diagnosis of myocardial infarction requires symptoms of ischemia or EKG changes of ischemia and Troponin I >99th of normal (0.05 ng/mL). Troponin should be drawn on initial assessment and 3-6 hours later as clinically indicated. Any condition resulting in myocardial cell damage can increase cardiac troponin levels. In addition to myocardial infarction, these include but are not limited to congestive heart failure (CHF), arrhythmia, myocarditis, and non-cardiac related causes such as pulmonary embolism, renal failure and sepsis. Boone Estrada Nixon LAB - CHEMISTRY ORDE RABIGNACIA Performing Organization Address [facility] Co de Phone Number [facility] [address] [place], [place] [phone] * (ABNORMAL) URINALYSIS MICROSCOPIC ONLY (12/20/2016 8:56 PM CDT) Pathologist [facility] RBC UA 2-5 0-2, 2-5 # /hpf 12/20/2016 9:16 PM CDT [facility] WBC UA 5-10(A) 0-2, 2-5 # /hpf 12/20/2016 9:16 PM CDT [facility] Bacteria UA 1+(A) None Seen 12/20/2016 9:16 PM CDT [facility] Epithelial Cell UA 5-10(A) 0-2, 2-5 # /hpf 12/20/2016 9:16 PM CDT [facility] Hyaline Casts 0-2 0 - 2 # /lpf 12/20/2016 9:16 PM CDT [facility] Amorphous Phosphate Crystals 4+(A) None Seen 12/20/2016 9:16 PM CDT [facility] Urine URINE SPECIMEN OBTAINED BY CLEAN CATCH PROCEDURE / Unknown 12/20/2016 8:56 PM CDT 12/20/2016 8:58 PM CDT [facility] LAB - URINALYSIS ORD ERABLES Performing Organization Address [facility] Co de Phone Number [facility] [address] [place], [place] [phone] * EKG 12-LEAD (12/20/2016 8:52 PM CDT) Only the most recent of7 resultswithin the time period is included. Ventricular Rate 83 BPM [facility] Atrial Rate 83 BPM [facility] P-R Interval 148 ms [facility] QRS Duration ms 70 ms [facility] Q-T Interval ms 332 ms [facility] QTC Calculation (Bezet) 390 ms [facility] Calculated P Clute 58 degrees [facility] Calculated R Clute 48 degrees [facility] Calculated T Clute 31 degrees [facility] Interpretation EKG NORMAL SINUS RHYTHM MODERATE VOLTAGE CRITERIA FOR LVH, MAY BE NORMAL VARIANT NONSPECIFIC T WAVE ABNORMALITY ABNORMAL ECG WHEN COMPARED WITH ECG OF 19-DEC-2016 19:53, NO ESSENTIAL CHANGE Confirmed by Claudia Coleman ([id number]) on 12/21/2016 5:30:11 PM [facility] 12/20/2016 8:52 PM CDT 12/21/2016 5:30 PM CDT Boone Nixon DO ECG ORDERABLES Performing Organization Address City/[facility]/ZIP Co de Phone Number [facility] * MAGNESIUM BLOOD (12/20/2016 8:44 PM CDT) [facility] Signature Magnesium 2.3 1.6 - 2.6 mg/dL 12/20/2016 11:15 PM CDT [facility] Blood BLOOD SPECIMEN / Unknown Venipuncture / Unknown 12/20/2016 8:44 PM CDT 12/20/2016 11:08 PM CDT Boone Nixon DO LAB - CHEMISTRY ORDE RABLES Performing Organization Address City/[facility]/ZIP Co de Phone Number [facility] [address] [place] [address] * XR CHEST PA AND LATERAL (12/18/2016 10:26 PM CDT) Only the most recent of2 resultswithin the time period is included. Anatomical Region Laterality Modality Chest Radiographic Renee ging 12/19/2016 7:15 AM CDT Impressions 12/19/2016 7:16 AM CDT Clear lungs. Narrative 12/19/2016 7:16 AM CDT Chest x-ray 2 views. HISTORY: Chest pain. 2 views of the chest are compared to a prior exam of 12/10/2016. Heart size is normal. Lungs are clear. Procedure Note Aniceto West MD - 12/19/2016 Chest x-ray 2 views. HISTORY: Chest pain. 2 views of the chest are compared to a prior exam of 12/10/2016. Heart size is normal. Lungs are clear. IMPRESSION Clear lungs. Christian Ortez MD DIAGNOSTIC IMAG ING ORDERABLES * CARDIAC RHYTHM STRIP ORDER (12/17/2016 11:09 PM CDT) Only the most recent of2 resultswithin the time period is included. Narrative 12/17/2016 11:09 PM CDT Ordered by an unspecified provider. Scanned Document CARDIAC SERVICES ORD ERABLES * SLIDE SCAN HEMATOLOGY (12/13/2016 9:24 PM CDT) Only the most recent of2 resultswithin the time period is included. Platelet Estimation Normal Normal, Adequate platelets 12/13/2016 9:55 PM CDT [facility] Blood BLOOD SPECIMEN / Unknown 12/13/2016 9:24 PM CDT 12/13/2016 9:27 PM CDT Johanna Myers MD LAB - HEMATOLOGY ORD ERABLES [facility] [address] [place] [address] * CT HEAD NON CONTRAST (12/10/2016 5:03 PM CDT) Only the most recent of2 resultswithin the time period is included. Anatomical Region Laterality Modality Head Computed Tomogra phy 12/10/2016 5:08 PM CDT Narrative 12/10/2016 5:[address] brain HISTORY: Headaches TECHNIQUE: Multiple contiguous axial images the brain were obtained without contrast. No evidence of mass or hemorrhage or midline shift is seen. The cerebral sulci and ventricles are normal. Rivera-white differentiation is preserved Paranasal sinuses and mastoid air cells are normal DIAGNOSIS: Negative Procedure Note Misael Cortez MD - 12/10/2016 CT brain HISTORY: Headaches TECHNIQUE: Multiple contiguous axial images the brain were obtained without contrast. No evidence of mass or hemorrhage or midline shift is seen. The cerebral sulci and ventricles are normal. Rivera-white differentiation is preserved Paranasal sinuses and mastoid air cells are normal DIAGNOSIS: Negative Jone Welch PSYCHOLOGIST DEVELOPMENTAL-BACKEND DEVELOPER CT ORDERABLES * ED CRITICAL CARE (12/10/2016 1:07 PM CDT) Narrative Rubio Pascal MD - 12/10/2016 1:07 PM CDT Rubio Pascal MD 12/10/2016 1:07 PM Critical Care Performed by: RUBIO PASCAL Authorized by: RUBIO PASCAL Total critical care time: 85 minutes Critical care was necessary to treat or prevent imminent or life-threatening deterioration of the following conditions: circulatory failure. Critical care was time spent personally by me on the following activities: development of treatment plan with patient or surrogate, evaluation of patient's response to treatment, obtaining history from patient or surrogate, ordering and review of laboratory studies, ordering and review of radiographic studies, re-evaluation of patient's condition, review of old charts, examination of patient, ordering and performing treatments and interventions and pulse oximetry. Rubio Pascal MD PROCEDURE/MINOR SURG ICAL ORDERABLES * (ABNORMAL) URINALYSIS ROUTINE W/REFLEX TO CULTURE (12/10/2016 12:38 AM CDT) Color UA Yellow Straw, Yellow, Dark Yellow 12/10/2016 12:59 AM CDT [facility] Clarity UA Cloudy 12/10/2016 12:59 AM CDT [facility] Specific [place] UA 1.017 1.005 - 1.030 12/10/2016 12:59 AM CDT [facility] pH UA 6.0 5.0 - 8.0 pH 12/10/2016 12:59 AM CDT [facility] Protein UA Trace(A) Negative 12/10/2016 12:59 AM CDT [facility] Blood UA Negative Negative 12/10/2016 12:59 AM CDT [facility] Leukocyte UA Negative Negative 12/10/2016 12:59 AM CDT [facility] Nitrite UA Negative Negative 12/10/2016 12:59 AM CDT [facility] Glucose UA Negative Negative 12/10/2016 12:59 AM CDT [facility] Ketone UA Negative Negative 12/10/2016 12:59 AM CDT [facility] Bilirubin UA Negative Negative 12/10/2016 12:59 AM CDT [facility] Urobilinogen UA 1.0 0.1 - 1.0 EU/dL 12/10/2016 12:59 AM CDT [facility] WBC UA Auto 2-5 0-2, 2-5 # /hpf 12/10/2016 12:59 AM CDT [facility] RBC UA Auto 2-5 0-2, 2-5 # /hpf 12/10/2016 12:59 AM CDT [facility] Epithelial Cell UA Auto 2-5 0-2, 2-5 # /hpf 12/10/2016 12:59 AM CDT [facility] Reflex Status Culture not indicated 12/10/2016 12:59 AM T [facility] Urine URINE SPECIMEN OBTAINED BY CLEAN CATCH PROCEDURE / Unknown Collection / Unknown 12/10/2016 12:38 AM CDT 12/10/2016 12:50 AM CDT Yamila Hernández MD LAB - URINALYSIS ORD ERABLES [facility] [address] [place] [address] * (ABNORMAL) DRUG SCREEN TOX URINE PANEL (12/10/2016 12:38 AM CDT) [facility] Amphetamines Screen Urine Not Detected Not Detected 12/10/2016 1:28 AM CDT [facility] Barbiturates Screen Urine Detected(A) Not Detected 12/10/2016 1:28 AM CDT [facility] Benzodiazepines Screen Urine Not Detected Not Detected 12/10/2016 1:28 AM T [facility] Cannabinoids Screen Urine Not Detected Not Detected 12/10/2016 1:28 AM CDT [facility] Cocaine Screen Urine Not Detected Not Detected 12/10/2016 1:28 AM CDT [facility] Methadone Screen Urine Not Detected Not Detected 12/10/2016 1:28 AM T [facility] Opiate Screen Urine Detected(A) Not Detected 12/10/2016 1:28 AM CDT [facility] Phencyclidine Screen Urine Not Detected Not Detected 12/10/2016 1:28 AM T [facility] Urine URINE / Unknown Collection / Unknown 12/10/2016 12:38 AM CDT 12/10/2016 1:13 AM CDT Narrative [facility] - 12/10/2016 1:28 AM CDT This drug screen is designed for MEDICAL purposes only. It is not to be used for legal purposes, including but not limited to worker's comp, police investigations, occupational issues, child custody, etc. Any positive result is only presumptive and must be confirmed with a separate confirmatory test ordered by the physician. Drug Screening Test Cutoff Values: AMPHETAMINES 1000 ng/mL BARBITURATES 200 ng/mL BENZODIAZEPINES 200 ng/mL CANNABINOIDS(THC) 50 ng/mL COCAINE 300 ng/mL METHADONE 300 ng/mL OPIATES 300 ng/mL PHENCYCLIDINE(PCP)25 ng/mL Yamila Hernández MD LAB - URINE CHEMISTR Y ORDERABLES [facility] [address] [place] [address] * XR CHEST 1VW PORTABLE (05/05/2014 11:33 AM CDT) Anatomical Region Laterality Modality Chest Other Impressions 05/05/2014 3:26 PM CDT Impression: No acute pulmonary process. This report was dictated by Alex Lindsey MD (president [employer]) IDr. ROLANDO M.D. have personally reviewed and interpreted this examination/study. This report was electronically signed by ROLANDO PARDO M.D. on 05/05/2014 3:26 PM . Narrative 05/05/2014 3:26 PM CDT Exam: Chest AP portable Date: 05/05/2014 Comparison: None. History: Symptomatic hypertension. Findings: No acute focal consolidation, pleural effusion, or pneumothorax is present. The cardiac silhouette and mediastinal contours are normal. Fullness along the right suprahilar region is likely normal vascular structures that appear more prominent due to rotation of the patient. The visible bony thorax is intact. Procedure Note Radha Pardo MD - 11/15/2017 Exam: Chest AP portable Date: 05/05/2014 Comparison: None. History: Symptomatic hypertension. Findings: No acute focal consolidation, pleural effusion, or pneumothorax ispresent. The cardiac silhouette and mediastinal contours are normal.Fullness along the right suprahilar region is likely normal vascularstructures that appear more prominent due to rotation of the patient. The visible bony thorax is intact. IMPRESSION Impression: No acute pulmonary process. This report was dictated by Alex Lindsey MD (president trust [employer]) I, Dr. ROLANDO PARDO M.D. have personally reviewed and interpreted thisexamination/study. This report was electronically signed by ROLANDO PARDO M.D. on05/05/2014 3:26 PM . Joe Harris MD DIAGNOSTIC IMAGING O RDERABLES * CK + CKMB PANEL (05/05/2014 11:29 AM CDT) [facility] CK Total 144 30 - 200 Units/L [facility] CK-MB 0.5 0.0 - 6.6 ng/mL [facility] Blood specimen (specimen) BLOOD SPECIMEN / Unknown 05/05/2014 11:29 AM CDT 05/05/2014 11:29 AM CDT Joe Harris MD [facility] Organization Address City/State/[facility] Co de Phone Number [address] [phone] * (ABNORMAL) DRUG ABUSE PANEL 10-20+ETHANOL URINE NO CONFIRM (05/05/2014 8:50 AM CDT) [facility] Amphetamines Screen Urine Negative Negative : < 1000 ng/mL [facility] Barbiturates Screen Urine Positive(A) Negative : < 200 ng/mL [facility] Comment: Positive urine barbiturate screening results should be confirmed by another generally accepted non-immunological method such as gas chromatography or mass spectrometry. Benzodiazepine Screen Urine Positive(A) Negative : < 200 ng/mL [facility] Comment: Positive urine benzodiazepine screening results should be confirmed by another generally accepted non-immunological method such as gas chromatography or mass spectrometry. Opiates Urine Negative Negative : < 300 ng/mL [facility] Cocaine Metabolites Urine Negative Negative : < 300 ng/mL [facility] Phencyclidine Screen Urine Negative Negative : < 25 ng/ml [facility] Cannabinoids Screen Urine Negative Negative : <50 ng/mL [facility] Methadone Screen Urine Negative Negative : < 300 ng/mL [facility] Urine specimen (specimen) 05/05/2014 8:50 AM CDT 05/05/2014 8:54 AM CDT Narrative [facility] - 05/05/2014 9:13 AM CDT The Urine Toxicology Screening Panel does not screen for Propoxyphene, Meprobamate, Carisoprodol, Trazodone, [id number] medications and/or volatiles (Acetone, Isopropanol, Methanol or Ethylene Glycol). Ethanol, Salicylate, Acetaminophen, Tricyclic Antidepressants and several therapeutic drugs may be individually assayed in serum or plasma specimen. Toxicology testing by the [facility] is an aid to medical diagnosis and treatment of patients. No documented chain of custody was maintained. Results are intended to be used for clinical purposes only. Joe Harris MD LAB - URINE CHEMISTR Y ORDERABLES Performing Organization Address City/[facility]/ZIP Co de Phone Number [address] [phone] * (ABNORMAL) RBC MORPHOLOGY (05/05/2014 8:06 AM CDT) Anisocytosis 1+(A) None [facility] Microcytes 3+(A) None [facility] Target Cells Few(A) None [facility] Ovalocytes Few(A) None [facility] Blood specimen (specimen) BLOOD SPECIMEN / Unknown 05/05/2014 8:06 AM CDT 05/05/2014 8:46 AM CDT Joe Harris MD LAB - HEMATOLOGY ORD ERABLES Performing Organization Address [facility] Co de Phone Number [address] [phone] Care Teams Can Closing Machine Tender Relationship Specialty Start Date End Date [facility] - General 09/14/24 Charlene Murillo MD [address] [facility] [address] [place] [address] Consulting Physician Pulmonary Disease 04/09/18 Lenin Frances MD [address] [facility] [address] [place] [address] Pain Management Anesthesiology 10/08/18 Sylvester Brown MD [address] [place] [address] Psychiatry 12/23/18 Cornell Bingham MD [address] [place] [address] Cardiovascular Disease 06/15/19
--- OUTSIDE RECORDS SUMMARY | 2024-09-30 11:42 | XMS_ITS | Clinical Summary ---
Author Organization [facility] Address [address] [place] [address] Care Team Providers Care Contract Law Specialist Name Role Phone Charlene Murillo MD Unavailable [phone] Lenin Frances MD Unavailable [phone] Sylvester Brown MD Unavailable [phone] Cornell Bingham MD Unavailable [phone] Pcp, [address] Primary Care Provide r Unavailable Source Comments [facility],non-owned Affiliates and Associated Physician Practices is amultiple site organization consisting of ambulatory clinics and hospital sitesin [place], [place], [place] and [place]. This disclosure is being madepursuant to the Care Everywhere program and may not contain all information available regarding this patient. Last updated 18.[facility] Allergies Active Allergy Reactions Criticality Noted Date Comments Prochlorperazine 12/09/2016 Tolerates phenergan Feels jittery, like 'bugs crawling under skin'. Trouble sitting still Dhea Other 02/27/2017 HTN Dihydroergotamine 12/10/2016 Causes HTN Haloperidol 12/09/2016 Sumatriptan 12/09/2016 Droperidol Itching 12/10/2016 Metoclopramide 12/09/2016 Sulfa Drugs Anaphylaxis High 12/09/2016 Ketorolac 12/09/2016 Causes ulcers in her stomach to get worse. Not truly allergic. Medications * Be aware that medications may not be up to date on this document. Alwaysverify current medications with the patient. Medication Sig Dispensed Refills Start Date End Date Status butalbital-acetam inophen-caffeine (FIORICET) 50-300-40 MG capsule Take 1 Cap by mouth every 4 hours as needed for Headache Active furosemide (LASIX) 20 MG tablet Take 1 tablet by mouth once daily 5 03/12/2018 Active fenofibrate (TRICOR) 145 MG tablet Take 1 tablet by mouth at bedtime 0 02/18/2018 Active rosuvastatin (CRESTOR) 10 MG tablet Take 1 tablet by mouth at bedtime 5 02/20/2018 Active latanoprost (XALATAN) 0.005 % ophthalmic solution Instill 1 drop into both eyes at bedtime 6 01/16/2018 Active zolpidem (AMBIEN) 10 MG tabletIndications :Insomnia Take 1 tablet by mouth nightly as needed for Insomnia Reasons: Trouble Sleeping 10/08/2018 Active escitalopram (LEXAPRO) 20 MG tablet Take 1.5 tablets by mouth once daily 30 tablet 10/08/2018 Active amLODIPine (NORVASC) 10 MG tablet Take 10 mg by mouth once daily 12/18/2018 Active Estradiol (IMVEXXY STARTER PACK) 10 MCG INST Insert 10 mcg into the vagina Active vitamin D, ergocalciferol, (DRISDOL) 1.25 MG (76534 UT) capsule Take 50,000 Units by mouth every 30 days Active FOLIC ACID PO Active oxyCODONE-acetami nophen (PERCOCET) 5-325 MG tablet Take 1 tablet by mouth every 4 hours as needed for Pain 4 tablet 08/02/2019 Active spironolactone (ALDACTONE) 25 MG tablet 10/12/2019 Active propranolol CR 24hr (INDERAL LA) 120 MG capsule Take 120 mg by mouth once daily Active hydrALAZINE (APRESOLINE) 25 MG tablet Take 25 mg by mouth 3 times daily take 3 tablets three times a day Active ARIPiprazole (ABILIFY) 20 MG tablet Take 20 mg by mouth once daily Active atomoxetine (STRATTERA) 80 MG capsule Take 80 mg by mouth every morning Active topiramate (TOPAMAX) 100 MG tablet Take 100 mg by mouth 2 times daily Active fremanezumab-vfrm (AJOVY) 225 MG/1.5ML injectionIndicati ons:Migraine Inject 225 mg subcutaneously every 30 days Reasons: Migraine Headache 1.5 mL 12/15/2019 Active ipratropium (ATROVENT) 0.03 % nasal sprayIndications: Other migraine without status migrainosus, intractable [place] 1 spray into each nostril 2 times daily 30 mL 5 12/15/2019 Active azelastine (ASTELIN) 0.1 % nasal sprayIndications: Other migraine without status migrainosus, intractable U 2 SPRAYS IEN BID 1 Inhaler 5 12/15/2019 Active esomeprazole (NEXIUM) 40 MG capsule Take 1 capsule by mouth once daily as needed FOR HEARTBURN 90 capsule 1 03/10/2020 Active buPROPion XL 24hr (WELLBUTRIN-XL) 150 MG tablet TK 1 T PO QD IN THE MORNING 05/15/2020 Active clobetasol (TEMOVATE) 0.05 % cream Apply to affected area 2 times daily 03/03/2019 Active diclofenac sodium (SOLARAZE) 3 % gel Apply 2 to 4 grams to the affected area twice daily 06/08/2020 Active diclofenac sodium XR 24hr (VOLTAREN XR) 100 MG tablet Take 100 mg by mouth 2 times daily 05/12/2020 Active hydrocortisone (HYTONE) 2.5 % ointment PAMELA 1 GRAM AA BID PRN 01/11/2020 Active lidocaine (XYLOCAINE) 5 % ointment APPLY AA D FOR PAIN 05/11/2020 Activ e NARCAN 4 MG/0.1ML nasal spray USE 1 SPRAY IN THE NOSTRILS DIRECTED 01/27/2020 Active ondansetron (ZOFRAN) 8 MG tablet TK 1 T PO BID PRN 06/14/2020 Active lisinopril (PRINIVIL; ZESTRIL) 20 MG tablet Take 20 mg by mouth 2 times daily 06/08/2020 Active Active Problems Problem Noted Date Diagnosed Date Chronic bilateral thoracic back pain 08/02/2019 Thalassemia trait 12/24/2016 Immunizations Name Administration Dates Next Due INFLUENZA VACCINE 05/17/2020, 8,05/25/2017,2015,07/06/2015,05/10/2014,06/01/2010,0 09/06/2005 INFLUENZA VACCINE, QUADR. (F LUZONE; FLULAVAL; FLUARIX; AFLURIA QUADRIVALENT; 6MO+), 0.5 ML (IIV4) 05/17/2020 PNEUMOCOCCAL PPSV23 06/15/2019 Pneumococcal Pcv13 Conj 10/08/2018 TD (AGE 7-ADULT) 09/25/2004 TDAP (7yrs+) 10/08/2018,12/18/2015 Zoster Hzv Vacc Recombinant Inj Im 08/22/2020, iNFLUENZA VACCINE, RECOM-NGUYEN, QUADR. (FLUBLOCK QUADRIVALENT; 18Y+) (RIV4) 06/15/2019 Family History Medical History Relation Name Comments Hypertension Father CVA Mother Diabetes Mother Heart Failure Mother Hypertension Mother Relation Name Status Comments Father Mother Alive Social History Tobacco Use Types Packs/Day Years [...] Comments Blood Pressure 120/74 06/27/2020 11:23 AM SENIOR ELECTRONICS DESIGN ENGINEER Pulse 60 06/27/2020 11:23 AM SENIOR ELECTRONICS DESIGN ENGINEER Temperature 35.7 C (96.3 F) 06/27/2020 11:23 AM SENIOR ELECTRONICS DESIGN ENGINEER Respiratory Rate 14 06/27/2020 11:23 AM SENIOR ELECTRONICS DESIGN ENGINEER Oxygen Saturation 100% 06/27/2020 11:23 AM SENIOR ELECTRONICS DESIGN ENGINEER Inhaled Oxygen Concentration - - Weight 70.8 kg (156 lb) 06/27/2020 11:23 AM SENIOR ELECTRONICS DESIGN ENGINEER Height 167.6 cm (5' 6 ) 06/27/2020 11:23 AM SENIOR ELECTRONICS DESIGN ENGINEER Body Mass Index 25.18 06/27/2020 11:23 AM SENIOR ELECTRONICS DESIGN ENGINEER Plan of Treatment Health Maintenance Due Date Last Done Comments COLOGUARD (AGES 45-75) - COLON CA SCREENING 1969 COLON MONITORING 1969 COLONOSCOPY - COLON CA SCREENING 1969 CT COLONOGRAPHY - COLON CA SCREENING 1969 Colorectal Cancer Screening 1969 FIT - COLON CA SCREENING 1969 FLEX SIG - COLON CA SCREENING 1969 MAMMOGRAM 1969 HIV SCREENING 1984 HEPATITIS C SCREENING 04/17/1987 HEPATITIS B VACCINE (1 of 3 - 19+ 3-dose series) 1988 SCREENING FOR DIABETES 10/08/2021 9, 12/24/2016, 12/20/2016, Additional history exists PAP SMEAR 11/05/2021 11/05/2018 COVID-19 VACCINE ( season) 2024 12/27/2021, 11/14/2020, 10/24/2020 INFLUENZA VACCINE (#1) 2024 2, 05/22/2021, 05/17/2020, Additional history exists PNEUMOCOCCAL VACCINE 50+ (3 of 3 - PCV20 or PCV21) 06/15/2024 06/15/2019, 10/08/2018 DEPRESSION SCREENING 08/18/2024 DTAP/TDAP/TD VACCINES (4 - Td or Tdap) 10/08/2028 10/08/2018, 12/18/2015, 09/25/2004 ZOSTER VACCINE Completed 08/22/2020, 05/17/2020 HIB VACCINE Aged Out No longer eligi ble based on patient's age to complete this topic HPV VACCINE Aged Out No longer eligi ble based on patient's age to complete this topic MENINGOCOCCAL (Group B) VACCINE Aged Out No longer eligible based on patient's age to complete this topic MENINGOCOCCAL VACCINE Aged Out No mario jennifer eligible based on patient's age to complete this topic Procedures Procedure Name Priority Date/Time Associated Diagnosis Comments PAP IG LB + HPV HR Routine 11/05/2018 2: 32 PM CDT Well woman exam with routine gynecological exam COMPREHENSIVE METABOLIC PANEL 10/08/2018 1:18 PM SENIOR ELECTRONICS DESIGN ENGINEER from Last 3 Months or Most Recently Relevant to Health Maintenance Results * (ABNORMAL) PAP IG LB + HPV HR (11/05/2018 2:32 PM CDT) Diagnosis (A) [facility] INSURANCE BILL Comment: EPITHELIAL CELL ABNORMALITY. LOW-GRADE SQUAMOUS INTRAEPITHELIAL LESION (LSIL) (VAGINAL). Recommendation (A) [facility] INSURANCE BILL Comment:Suggest follow up as clinically appropriate. Specimen Adequacy [facility] INSURANCE BILL Comment:Satisfactory for giuliano luation. Clinician Provided ICD10 [facility] INSURANCE BILL Comment: Z01.419 Z12.31 Performed by [facility] INSURANCE BILL Comment:Francis Croft, Cyto technologist (ASCP) Electronically Signed by [facility] INSURANCE BILL Comment:Hortencia Lamas MD, Pathologist Comment [...] of containers..01 ThinPrep Vial Resulting Agency Comment [address] [phone] Natali SANCHEZ LAB - PATHOLOGY/CY TOLOGY ORDERABLES [facility] INSURANCE BILL [address] [place] [address] * COMPREHENSIVE METABOLIC PANEL (10/08/2018 1:18 PM SENIOR ELECTRONICS DESIGN ENGINEER) Glucose 98 74 - 106 mg/dL [facility] [...] [facility] INSURANCE BILL Comment:FASTING 10/08/2018 1:18 PM SENIOR ELECTRONICS DESIGN ENGINEER 10/08/2018 Narrative Resulting Agency Comment [facility] [address] [place] [phone] Williams Avalos MD LAB - CHEMISTRY [facility] Organization Address City/State/ZIP Co de Phone Number [facility] INSURANCE BILL [address] [place] [address] from Last 3 Months or Most Recently Relevant to Health Maintenance Advance Directives Documents on File Type Date Recorded Patient Title I Coordinator Expl anation Adv Directive/Living Will/POA 12/10/2016 * Full Code (Latest Code Status on File) Date Activated Date Inactivated Comments 12/14/2016 12:49 AM 12/16/2016 12:21 PM * Full Code Date Activated Date Inactivated Comments 12/10/2016 2:26 PM 12/11/2016 5:18 PM * Full Code Date Activated Date Inactivated Comments 12/10/2016 1:49 PM 12/10/2016 2:26 PM Care Teams Contract Law Specialist Relationship Specialty Start Date End Date Pcp, [facility] 3rd PCP - General 09/14/24 Charlene Murillo MD [address] [address] [address] [place] [phone] Consulting Physician Pulmonary Disease 04/09/18 Lenin Frances MD [address] [facility] [address] [place] [address] Pain Management Anesthesiology 10/08/18 Sylvester Brown MD [address] [place] [address] Psychiatry 12/23/18 Cornell Bingham MD [address] [place] [address] Cardiovascular Disease 06/15/19
--- OUTSIDE RECORDS SUMMARY | 2024-09-30 11:42 | XMS_ITS | Encounter Summary ---
Author Organization [facility] Care Team Providers Care Illustrator Set Name Role Phone Paddy Riley MD, Fabrizio Unavailable [phone] Chris Mahmood DO Primary Care Provider + No, Physician Primary Care Provider [phone] Shruthi Modi MD Primary Care Provider Dmitry Laguna MD Unavailable [phone] Encounter Details Date Type Department Care Team (Latest Contact Info) Description 04/23/2016 Orders Only [facility] CLINCONV ProviderRay MD [address] [place] [id number] Social History Tobacco Use Types Packs/Day Years Used Date Smoking Tobacco: Never Assessed Comments Unknown Sex and Gender Information Value Date Recorded Sex Assigned at Not on file 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 us Historical Provider Final Res ult documented in this encounter Visit Diagnoses Not [...] documented as of this encounter Care Teams Illustrator Set Relationship Specialty Start Date End Date Chris Mahmood DO [address] [place] [address] PCP - General Family Medicine 07/05/21 10/04/21 No, Physician PCP - General 10/15/21 10/23/21 Shruthi Modi MD [address] [facility] [place] [address] PCP - General Family Practice 10/24/21 Fabrizio Thomason Jr., MD Medical Oncologist/Hematologis t Medical Oncology 03/02/21 Dmitry Laguna MD [address] [facility] [place] [address] Referring Physician Endocrinology Diabetes & Metabolism 05/21/23 documented as of this encounter
--- OUTSIDE RECORDS SUMMARY | 2024-09-30 11:42 | XMS_ITS | Referral Summary ---
Author Organization [facility] Address [address] [facility] [place] [address] Care Team Providers Care Manager Trust Name Role Phone Charlene Murillo MD Unavailable [phone] Lenin Frances MD Unavailable [phone] Sylvester Brown MD Unavailable [phone] Cornell Bingham MD Unavailable [phone] Pcp, [address] Primary Care Provide r Unavailable Source Comments [facility],non-owned Affiliates and Associated Physician Practices is amultiple site organization consisting of ambulatory clinics and hospital sitesin [place], [place], [place] and [place]. This disclosure is being madepursuant to the Care Everywhere program and may not contain all information available regarding this patient. Last updated 18.[facility] Allergies Active Allergy Reactions Criticality Noted [...] Active vitamin D, ergocalciferol, (DRISDOL) 1.25 MG (14281 UT) capsule Take 50,000 Units by mouth [...] sprayIndications: Other migraine without status migrainosus, intractable [place] 1 spray into each nostril 2 times [...] RECOM-NGUYEN, QUADR. 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 Pulse 60 06/27/2020 11:23 AM HIGH SCHOOL DRAFTING TEACHER Temperature 35.7 C (96.3 F) 06/27/2020 11:23 AM HIGH SCHOOL DRAFTING TEACHER Respiratory Rate 14 06/27/2020 11:23 AM HIGH SCHOOL DRAFTING TEACHER Oxygen Saturation 100% 06/27/2020 11:23 AM HIGH SCHOOL DRAFTING TEACHER Inhaled Oxygen Concentration - - Weight 70.8 kg (156 lb) 06/27/2020 11:23 AM HIGH SCHOOL DRAFTING TEACHER Height 167.6 cm (5' 6 ) 06/27/2020 11:23 AM HIGH SCHOOL DRAFTING TEACHER Body Mass Index 25.18 06/27/2020 11:23 AM HIGH SCHOOL DRAFTING TEACHER Functional Status Functional Status Response Date of Assess ment Is person deaf or have serious hearing difficult y? No 12/14/2016 Is person blind or have serious difficulty seein g? No 12/14/2016 Does person have serious dif ficulty walking/climbing stairs? No 12/14/2016 Does person have difficulty dressing/bathing? No 12/14/2016 Does person have difficulty doing errands alone? No 12/14/2016 Cognitive Status Response Date of Assessm ent Does person have difficulty concentrating/remembering/making decisions? No 12/14/2016 Plan of Treatment Not on file Procedures Procedure Name Priority Date/Time Associated Diagnosis Comments PAP IG LB + HPV HR Routine 11/05/2018 2: 32 PM CDT Well woman exam with routine gynecological exam COMPREHENSIVE METABOLIC PANEL 10/08/2018 1:18 PM HIGH SCHOOL DRAFTING TEACHER from Last 3 Months or Most Recently Relevant to Health Maintenance Results * (ABNORMAL) PAP IG LB + HPV HR (11/05/2018 2:32 PM CDT) Diagnosis (A) [facility] INSURANCE BILL Comment: EPITHELIAL CELL ABNORMALITY. LOW-GRADE SQUAMOUS INTRAEPITHELIAL LESION (LSIL) (VAGINAL). Recommendation (A) [facility] INSURANCE BILL Comment:Suggest follow up as clinically appropriate. Specimen Adequacy [facility] INSURANCE BILL Comment:Satisfactory for giuliano lopez. Clinician Provided ICD10 [facility] INSURANCE BILL Comment: [...] of containers..01 ThinPrep Vial Resulting Agency Comment [address] [place] [phone] Natali Whiteside PERFORMANCE IMPROVEMENT MANAGER-COREMAKER SUPERVISOR LAB - PATHOLOGY/CY TOLOGY ORDERABLES [facility] INSURANCE BILL [address] [place] [address] * COMPREHENSIVE METABOLIC PANEL (10/08/2018 1:18 PM HIGH SCHOOL DRAFTING TEACHER) [facility] Glucose 98 74 - 106 mg/dL [facility] [...] [facility] INSURANCE BILL Comment:FASTING 10/08/2018 1:18 PM HIGH SCHOOL DRAFTING TEACHER 10/08/2018 Narrative Resulting Agency Comment [address] [phone] Williams Avalos MD LAB - CHEMISTRY KAREN HOLLINS [facility] INSURANCE BILL [address] [place] [address] from Last 3 Months or Most Recently Relevant to Health Maintenance Advance Directives Documents on File Type Date Recorded Patient Toe Stripper Expl anation Adv Directive/Living Will/POA 12/10/2016 * Full Code (Latest Code Status on File) Date Activated Date Inactivated Comments 12/14/2016 12:49 AM 12/16/2016 12:21 PM * Full Code Date Activated Date Inactivated Comments 12/10/2016 2:26 PM 12/11/2016 5:18 PM * Full Code Date Activated Date Inactivated Comments 12/10/2016 1:49 PM 12/10/2016 2:26 PM Care Teams Manager Trust Relationship Specialty Start Date End Date Pcp, [facility] 3rd PCP - General 09/14/24 Charlene Murillo MD [address] [address] [address] [place] [address] Consulting Physician Pulmonary Disease 04/09/18 Lenin Frances MD [address] [facility] [address] [place] [phone] Pain Management Anesthesiology 10/08/18 Sylvester Brown MD [address] [place] [address] Psychiatry 12/23/18 Cornell Bingham MD [address] [place] [phone] Cardiovascular Disease 06/15/19
--- OUTSIDE RECORDS SUMMARY | 2024-09-30 11:42 | XMS_ITS | Encounter Summary ---
Author Organization [facility] Address [address] [place] [address] Phone Care Team Providers Care Deskidding Machine Operator Name Role Phone Paddy Riley MD, Fabrizio Unavailable [phone] Shruthi Modi MD Primary Care Provider Dmitry Laguna MD Unavailable [phone] Reason for Visit * Reason Onset Date Comments Lab Results 09/21/2024 Encounter Details Date Type Department Care Team (Late st Contact Info) Description 09/21/2024 Telephone [facility] Endocrinology Metabolism and Lipid [address] 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 Discussed via phone with patient She will have A1c and BMP done on - faxed to [phone]- she didn't have A1c drawn bc she thought she needed to be fasting She will avoid high K foods (bananas, broccoli, tuna, nuts, avocado, oranges, beans) We discussed that she is having BG excursions and it is likely due to her diet. Sometimes she will have lows in the 60s and she notes this is typically in a fasting state and she should eat somethingif this occurs. She understands. She only eats 2 meals daily, she may need to do more small frequent meals. Desi can discuss with her more at her visit and she could also see CDE ER PIANO TECHNICIAN documented in this encounter Plan of Treatment Scheduled Orders Name Type Priority Associated Diagnoses Orde r Schedule Basic metabolic panel Lab Routine Hyperkalemia Expected: 09/23/2024, Expires: 09/21/2025 documented as of this encounter Visit Diagnoses Diagnosis Hyperkalemia- Primary Hyperpotassemia documented in this encounter Additional Health Concerns Infection Onset Date Last Indicated Resolved Time MDR gram neg/ESBL Comment:Patients who received care at a healthcare facility outside of the [place] will be placed in Contact Precautions until infection or colonization with specific highly resistant bacteria can be ruled out. Infection Prevention will arrange screening. Please contact Infection Prevention. 01/16/2024 01/16/2024 documented as of this encounter Care Teams Deskidding Machine Operator Relationship Specialty Start Date End Date Shruthi Modi MD [address] [place] [address] PCP - General Family Practice 10/24/21 Fabrizio Thomason Jr., MD Medical Oncologist/Hematologis t Medical Oncology 03/02/21 Dmitry Laguna MD [address] [place] [address] Referring Physician Endocrinology Diabetes & Metabolism 05/21/23 documented as of this encounter
--- OUTSIDE RECORDS SUMMARY | 2024-09-30 11:42 | XMS_ITS ---
Author Organization [facility] [employer] Address [address] [place] [address] Care Team Providers Care Manager Of Health Name Role Phone Ly FIGUEROA, Shruthi Primary Care Provider Unavailab nitin ManasNicholas Unavailable [phone] REASON FOR VISIT Spravato Follow Up, Follow up appointment, seen via tele Medications Medication SIG (Take, Route, Frequency, Duration) Notes Start Date End Date Status Auvelity 45-105 MG 1 tablet Oral twice a day for 30 days Active Spravato (84 MG Dose) 28 MG/DEVICE 3 sprays in each nostril Nasally once a week for 1 days 09/28/2024 Active ARIPiprazole 20 MG 1 tablet Oral Once a day for 30 days Active Zolpidem Tartrate 10 MG 1 tablet at bedtime as needed Oral Once a day for 30 days As needed 09/28/2024 Active Qelbree 200 MG 2 capsules once a day for 7 days, 1 capsule once a day for 7 days Oral see sign for 14 days *Reorder from [facility] for eRx and Interaction Alerts* Active Esomeprazole Magnesium 40 MG TAKE 1 CAPSULE BY MOUTH EVERY DAY Oral for 30 Days Active Meloxicam 15 MG TAKE 1 TABLET BY MOUTH DAILY Oral for 28 Days Active HYDROcodone-Acetami nophen 5-325 MG Oral 12/12/2023 Active Baclofen 10 MG TAKE 1 TABLET BY MOUTH THREE TIMES DAILY NEEDED Oral for 28 Days Active amLODIPine Besylate 10 MG Oral for 30 Days Active cloNIDine HCl 0.1 MG Oral for 30 Days Active Ozempic (0.25 or 0.5 MG/DOSE) 2 MG/3ML INJECT 0.5 MG UNDER THE SKIN ONCE A WEEK DIRECTED Subcutaneous for 28 Days Active Losartan Potassium 100 MG Oral for 30 Days Active Propranolol HCl ER 120 MG Oral for 30 Days Active Rosuvastatin Calcium 10 MG Oral for 30 Days Active Emgality 120 MG/ML ADMINISTER 1 ML UNDER THE SKIN EVERY 30 DAYS Subcutaneous for 30 Days Active Fluticasone-Salmete rol 250-50 MCG/ACT INHALE 1 PUFF INTO THE LUNGS TWICE DAILY Inhalation for 30 Days Active metFORMIN HCl ER 500 MG TAKE 2 TABLETS BY MOUTH TWICE DAILY WITH MEALS Oral for 30 Days Active Estradiol 0.1 MG/GM Vaginal for 30 Days Active aMILoride HCl 5 MG Oral for 30 Days Active Spravato (84 MG Dose) 28 MG/DEVICE INHALE 84MG PER NASAL ROUTE EVERY WEEK for 7 days Active Ibsrela 50 MG 1 tablet immediately before meals Orally Twice a day Active Auvelity 45-105 MG 1 tablet Oral twice a day for 30 days 07/02/2024 Active Eliquis 5 MG 1 tablet Orally twice a day Active Gemtesa 75 MG 1 tablet Orally Once a day Active Atomoxetine HCl 80 MG 1 capsule in the morning Orally Once a day for 30 days 09/28/2024 11/27/2024 Active Atomoxetine HCl 40 MG 1 capsule in the morning Orally Once a day for 14 days 09/28/2024 10/12/2024 Active Social History Sex Assigned At : Social History Observation Description Sex Assigned At Female Encounters Encounter Location Date Provider Diagnosis [facility] [facility] [address] [address] 09/28/2024 Nicholas Malagon Primary insomnia F51 .01 ; Generalized anxiety disorder F41.1 ; Major depressive disorder, recurrent, mild F33.0 ; Attention-deficit hyperactivity disorder, unspecified type F90.9 ; Marijuana use F12.90 and Major depressive disorder, recurrent severe without psychotic features 296.33 Assessments Encounter Date Diagnosis (ICD Code) Assessment Notes Treatment Notes Treatment Clinical Notes Section Notes 09/28/2024 Primary insomnia (ICD-10 - F51.01) 09/28/2024 Generalized anxiety disorder (ICD-10 - F41.1) 09/28/2024 Major depressive disorder, recurrent, mild (ICD-10 - F33.0) cont abilify 20mg, auvelity 45mg-105mg bid, spravato 84mg to once weekly Plasma concentrations and pharmacologic effects of aripiprazole may be increased by strong CYP2D6 inhibitors (eg, Auvelity Oral Tablet Extended Release 45-105 MG). An aripiprazole dose adjustment may be recommended. 09/28/2024 Attention-deficit hyperactivity disorder, unspecified type (ICD-10 - F90.9) 09/28/2024 Marijuana use (ICD-10 - F12.90) 09/28/2024 Major depressive disorder, recurrent severe without psychotic features (ICD9-CM - 296.33) Plan Of Treatment Medication Medication Name Sig Start Date Stop Date Notes Auvelity 45-105 MG 1 tablet Oral twice a day for 30 days Spravato (84 MG Dose) 28 MG/DEVICE 3 sprays in each nostril Nasally once a week for 1 days 09/28/2024 ARIPiprazole 20 MG 1 tablet Oral Once a day for 30 days Zolpidem Tartrate 10 MG 1 tablet at bedt nina as needed Oral Once a day for 30 days 09/28/2024 Qelbree 200 MG 2 capsules once a day for 7 days, 1 capsule once a day for 7 days Oral see sign for 14 days *Reorder from [facility] for eRx and Interaction Alerts* Atomoxetine HCl 80 MG 1 capsule in the morning Orally Once a day for 30 days 09/28/2024 11/27/2024 Atomoxetine HCl 40 MG 1 capsule in the morning Orally Once a day for 14 days 09/28/2024 10/12/2024 Treatment Notes Assessment Notes Major depressive disorder, r ecurrent, mild cont abilify 20mg, auvelity 45mg-105mg bid, spravato 84mg to once weekly Plasma concentrations and pharmacologic effects of aripiprazole may be increased by strong CYP2D6 inhibitors (eg, Auvelity Oral Tablet Extended Release 45-105 MG). An aripiprazole dose adjustment may be recommended. 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 Spravato Follow Up. 2. Follow up appointment. 3. Seen via tele. * HPI: H istory of Presenting Problem: SPRAVATO trademark is contraindicated in patients with: Aneurysmal vascular disease (including thoracic and abdominal aorta, No history intracranial and peripheral arterial vessels) or arteriovenous malformation No history History of intracerebral hemorrhage No history Hypersensitivity to esketamine, ketamine, or any of the ingredients No history. Anxiety p ersistent. D epression O nset: years ago, Associated Symptoms: feels hopeless, worthless, crying spells, feels like a burden i mproving with spravato. P sychotherapy?Moira dumont ompleted IOP. P ast Medication history: Zoloft, Prozac, paxil- made yawn, bupropion, auvelity, abilify. D epression screening: PHQ-9 L ittle interest or pleasure in doing things S everal days, F eeling down, depressed, or hopeless S everal days, T rouble falling or staying asleep, or sleeping too much M ore than half the days, F eeling tired or having little energy N early every day, P oor appetite or overeating N ot at all, F eeling bad about yourself or that you are a failure, or have let yourself or your family down S everal days, Moving or speaking so slowly that other people could have noticed; or the opposite, being so fidgety or restless that you have been moving around a lot more than usual N ot at all, T houghts that you would be better off or of hurting yourself in some way N ot at all. F unctional Status: The patient was seen today for Tele visit. [place] x_patient is seen at HOME Pt is seen at other than Home [facility] the session was conducted via a HIPAA-compliance audio/visual platform. * Medical History: * Medications: T shyla Spravato (84 MG Dose) 28 MG/DEVICE Solution Therapy Pack INHALE 84MG PER NASAL ROUTE EVERY WEEK , Taking Ibsrela 50 MG Tablet 1 tablet immediately before meals Orally Twice a day , Taking Gemtesa 75 MG Tablet 1 tablet Orally Once a day , Taking Auvelity 45-105 MG Tablet Extended Release 1 tablet Oral twice a day , Taking Eliquis 5 MG Tablet 1 tablet Orally twice a day , Taking Estradiol 0.1 MG/GM Cream Vaginal , Taking aMILoride HCl 5 MG Tablet Oral , Taking Fluticasone-Salmeterol 250-50 MCG/ACT Aerosol Powder Breath Activated INHALE 1 PUFF INTO THE LUNGS TWICE DAILY Inhalation , Taking metFORMIN HCl ER 500 MG Tablet Extended Release 24 Hour TAKE 2 TABLETS BY MOUTH TWICE DAILY WITH MEALS Oral , Taking Emgality 120 MG/ML Solution Auto- injector ADMINISTER 1 ML UNDER THE SKIN EVERY 30 DAYS Subcutaneous , Taking Ozempic (0.25 or 0.5 MG/DOSE) 2 MG/3ML Solution Pen-injector INJECT 0.5 MG UNDER THE SKIN ONCE A WEEK DIRECTED Subcutaneous , Taking cloNIDine HCl 0.1 MG Tablet Oral , Taking Propranolol HCl ER 120 MG Capsule Extended Release 24 Hour Oral , Taking Rosuvastatin Calcium 10 MG Tablet Oral , Taking Losartan Potassium 100 MG Tablet Oral , Taking Meloxicam 15 MG Tablet TAKE 1 TABLET BY MOUTH DAILY Oral , Taking Baclofen 10 MG Tablet TAKE 1 TABLET BY MOUTH THREE TIMES DAILY NEEDED Oral , Taking amLODIPine Besylate 10 MG Tablet Oral , Taking HYDROcodone-Acetaminophen 5-325 MG Tablet Oral , Taking Zolpidem Tartrate 10 MG Tablet 1 tablet at bedtime as needed Oral Once a day As needed, Taking Qelbree 200 MG Capsule Extended Release 24 Hour 3 capsules Oral Once a day , Notes to Pharmacist: *Reorder from [facility] for eRx and Interaction Alerts*, Taking ARIPiprazole 20 MG Tablet 1 tablet Oral Once a day , Taking Esomeprazole Magnesium 40 MG Capsule Delayed Release TAKE 1 CAPSULE BY MOUTH EVERY DAY Oral , Medication List reviewed and reconciled with the patient Objective: * Vitals: * Examination: P sychiatry: Appearance: w ell-groomed, well-nourished, .... Affect / mood: a ppropriate, full range. Attention: g ood. Attitude: c ooperative. Suicidal ideation: n one. Memory status: n o impairment noted. Degree of awareness of surroundings: w ithin normal limits.? Delusions: n o. Hallucinations: n o. Insight: g ood. Intellectual functioning: n o impairment noted. Judgement: g ood. Orientation: a wake, alert and oriented x 3. Perceptual disorders: n o perceptual disorder noted. Psychomotor activity: w ithin normal range. Speech / language: a ppropriate pitch/modulation, clear and coherent, normal rate, volume, and articulation (RVR), proper grammar used. Thought content: a ppropriate. Thought process: i ntact. Assessment: * Assessment: 1. P rimary insomnia - F51.01 (Primary) 2 . G eneralized anxiety disorder - F41.1 3 . M ajor depressive disorder, recurrent, mild - F33.0 4 . A ttention-deficit hyperactivity disorder, unspecified type - F90.9 5 . M arijuana use - F12.90 6 . M ajor depressive disorder, recurrent severe without psychotic features - 296.33 Plan: * Treatment: 2. M ajor depressive disorder, recurrent, mild Refill ARIPiprazole Tablet, 20 MG, 1 tablet, Oral, Once a day, 30 days, 30 Tablet, Refills 1; R efill Auvelity Tablet Extended Release, 45-105 MG, 1 tablet, Oral, twice a day, 30 days, 60 Tablet, Refills 1; R efill Spravato (84 MG Dose) Solution Therapy Pack, 28 MG/DEVICE, 3 sprays in each nostril, Nasally, once a week, 1 days, 3 Each, Refills 3. Notes: cont abilify 20mg, auvelity 45mg-105mg bid, spravato 84mg to once weekly Plasma concentrations and pharmacologic effects of aripiprazole may be increased by strong CYP2D6 inhibitors (eg, Auvelity Oral Tablet Extended Release 45-105 MG). An aripiprazole dose adjustment may be recommended. 3. A ttention-deficit hyperactivity disorder, unspecified type Start Qelbree Capsule Extended Release 24 Hour, 200 MG, 2 capsules once a day for 7 days, 1 capsule once a day for 7 days, Oral, see sign, 14 days, 21, Refills 0, Notes to Pharmacist: *Reorder from [facility] for eRx and Interaction Alerts*; S tart Atomoxetine HCl Capsule, 40 MG, 1 capsule in the morning, Orally, Once a day, 14 days, 14 Capsule, Refills 0; S tart Atomoxetine HCl Capsule, 80 MG, 1 capsule in the morning, Orally, Once a day, 30 days, 30, Refills 1. * Follow Up: 6 Weeks (Reason: f/u depression, adhd) * Billing Information: * Visit Code: [id number] OFFICE OUTPATIENT VISIT 25 MINUTES DETAILED HISTORY AND EXAM/MODERATE MEDICAL DECISION MAKING. Modifiers: 95 * Procedure Codes: * Electronic signature of EITAN Moore on 09/30/2024 at 11:41 AM AIRPLANE CABIN ATTENDANT Sign off status: Pending * Provider: EITAN PRESTON Date: 0 09/28/2024 Generated for Jessica weiss/Bairon/Kaleb on: 0 09/30/2024 11:41 AM AIRPLANE CABIN ATTENDANT History and Physical Notes * HPI (History of Present Illness) Category Sub-Category Detail Notes Category Not es History of Presenting Problem Anxiety persistent Depression Onset: years ago, As sociated Symptoms: feels hopeless, worthless, crying spells, feels like a burden improving with spravato Psychotherapy Moira powell [facility] Depression screening PHQ-9 Little inte rest or pleasure in doing things: Several days Feeling down, depressed, or hopeless: Se veral days Trouble falling or staying a sleep, or sleeping too much: More than half the days Feeling tired or having little energy: N early every day Poor appetite or overeating: Not at all Feeling bad about yourself o r that you are a failure, or have let yourself or your family down: Several days Moving or speaking so slowly that other people could have noticed; or the opposite, being so fidgety or restless that you have been moving around a lot more than usual: Not at all Thoughts that you would be b shaniqau off or of hurting yourself in some way: Not at all Examination Category Sub-Category Detail Notes Category Not es Psychiatry Appearance: well-groomed, well-nourished , ... Attitude: cooperative Psychomotor activity: within normal rang e Attention: good Degree of awareness of surroundings: wit hin normal limits Orientation: awake, alert and basilio ented x 3 Affect / mood: appropriate, full ra nge Speech / language: appropriate pitch/mo dulation, clear and coherent, normal rate, volume, and articulation (RVR), proper grammar used Insight: good Judgement: good Thought process: intact Thought content: appropriate Perceptual disorders: no perceptual diso rder noted Suicidal ideation: none Intellectual functioning: no impairment noted Memory status: no impairment noted Delusions: no Hallucinations: no
--- OUTSIDE RECORDS SUMMARY | 2024-09-30 11:42 | XMS_ITS ---
Author Organization [facility] [employer] Address [facility] [facility] [address] [facility] [address] [place] [address] Care Team Providers Care Clerk Analyst Name Role Phone Ly FIGUEROA, Shruthi Primary Care Provider Unavailab Nicholas Barber Unavailable [phone] REASON FOR VISIT September 28 appointment Social History Sex Assigned At : Social History Observation Description Sex Assigned At Female Encounters Encounter Location Date Provider Diagnosis [facility] [place] [id number] [facility] [address] [place] [address] 09/27/2024 Nicholas Malagon Plan Of Treatment Next Appt Details Provider Name:Nicholas dominguez, 11/12/2024 03:30:00 PM, [address], [facility] [address], [place], [address], Progress Notes * TRISTEN BOYDEDOB:1970 (54 yo F)Acc No.[id number]:09/27/2024 Patient: COLIN POLO :1970 A ge:54 Y S ex:Female Address:[address] [place] [address], [address] * true * Date: Generated for Printi ng/Faxing/eTransmitting on: 0 09/30/2024 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
--- OUTSIDE RECORDS SUMMARY | 2024-09-30 11:42 | XMS_ITS | Encounter Summary ---
Author Organization [facility] Facility Care Team Providers Care Regional Manager Name Role Phone Paddy Riley MD, Fabrizio Unavailable [phone] Chris Mahmood DO Primary Care Provider + No, Physician Primary Care Provider [phone] Shruthi Modi MD Primary Care Provider Dmitry Laguna MD Unavailable [phone] Encounter Details Date Type Department Care Team (Latest Contact Info) Description 10/29/2017 Orders Only [facility] CLINCONV ProviderRay MD [address] [place] [address] Social History Tobacco Use Types Packs/Day Years Used Date Smoking Tobacco: Never Assessed Comments Unknown Sex and Gender Information Value Date Recorded Sex Assigned at Not on file 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 Gender Identity Female 07/23/2020 8:34 PM GUITAR REPAIR TECHNICIAN Sexual Orientation Straight 07/23/2020 8: 34 PM GUITAR REPAIR TECHNICIAN documented as of this encounter Plan of Treatment Not on file documented as of this encounter Procedures Procedure Name Priority Date/Time Associated Diagnosis Comments SCAN - LABS 10/29/2017 12:00 AM CDT documented in this encounter Results * SCAN - LABS (10/29/2017 12:00 AM CDT) Narrative 10/29/2017 12:00 AM CDT Ordered by an unspecified [...] documented as of this encounter Care Teams Regional Manager Relationship Specialty Start Date End Date Chris Mahmood DO [address] [place] [address] PCP - General Family Medicine 07/05/21 10/04/21 No, Physician PCP - General 10/15/21 10/23/21 Shruthi Modi MD [address] [facility] [place] [address] PCP - General Family Practice 10/24/21 Fabrizio Thomason Jr., MD Medical Oncologist/Hematologis t Medical Oncology 03/02/21 Dmitry Laguna MD [address] [facility] [place] [address] Referring Physician Endocrinology Diabetes & Metabolism 05/21/23 documented as of this encounter
--- OUTSIDE RECORDS SUMMARY | 2024-09-30 11:42 | XMS_ITS | Encounter Summary ---
Author Organization [facility]/Health system Facility Care Team Providers Care Manager Membership Name Role Phone Paddy Riley MD, Fabrizio Unavailable [phone] Chris Mahmood DO Primary Care Provider + No, Physician Primary Care Provider [phone] Shruthi Modi MD Primary Care Provider Dmitry Laguna MD Unavailable [phone] Encounter Details Date Type Department Care Team (Latest Contact Info) Description 11/26/2016 Orders Only [facility] CLINCONV ProviderRay MD [address] [place] [address] Social History Tobacco Use Types Packs/Day Years Used Date Smoking Tobacco: Never Assessed Comments Unknown Sex and Gender Information Value Date Recorded Sex Assigned at Not on file 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 Sex Female 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 Gender Identity Female 07/23/2020 8:34 PM RAWHIDE BONE ROLLER Sexual Orientation Straight 07/23/2020 8: 34 PM RAWHIDE BONE ROLLER documented as of this encounter Plan of Treatment Not on file documented as of this encounter Procedures Procedure Name Priority Date/Time Associated Diagnosis Comments SCAN - LABS 12/30/2016 12:00 AM CDT documented in this encounter Results * SCAN - LABS (12/30/2016 12:00 AM CDT) Narrative 12/30/2016 12:00 AM CDT Ordered by [...] documented as of this encounter Care Teams Manager Membership Relationship Specialty Start Date End Date Chris Mahmood DO [address] [place] [id number] PCP - General Family Medicine 07/05/21 10/04/21 No, Physician PCP - General 10/15/21 10/23/21 Shruthi Modi MD [address] [facility] [place] [address] PCP - General Family Practice 10/24/21 Fabrizio Thomason Jr., MD Medical Oncologist/Hematologis t Medical Oncology 03/02/21 Dmitry Laguna MD [address] [facility] [place] [address] Referring Physician Endocrinology Diabetes & Metabolism 05/21/23 documented as of this encounter
--- OUTSIDE RECORDS SUMMARY | 2024-09-30 11:42 | XMS_ITS | Encounter Summary ---
Author Organization [facility] Facility Care Team Providers Care Assistant Account Manager Name Role Phone Paddy Riley MD, Fabrizio Unavailable [phone] Chris Mahmood DO Primary Care Provider + No, Physician Primary Care Provider Shruthi Modi MD Primary Care Provider Dmitry Laguna MD Unavailable [phone] Encounter Details Date Type Department Care Team (Latest Contact Info) Description 01/01/2017 Orders Only [facility] CLINCONV ProviderRay MD [address] [place] [address] Social History Tobacco Use Types Packs/Day Years Used Date Smoking Tobacco: Never Assessed Comments Unknown Sex and Gender Information Value Date Recorded Sex Assigned at Not on file Legal Sex Female 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 us Historical Provider Final Res ult * CARDIOLOGY REPORT (01/01/2017 12:00 AM CDT) Anatomical Region Laterality Modality Other Narrative 01/01/2017 12:00 AM CDT Ordered by an unspecified [...] documented as of this encounter Care Teams Assistant Account Manager Relationship Specialty Start Date End Date Chris Mahmood DO [address] [place] [address] PCP - General Family Medicine 07/05/21 10/04/21 No, Physician PCP - General 10/15/21 10/23/21 Shruthi Modi MD [address] [facility] [place] [address] PCP - General Family Practice 10/24/21 Fabrizio Thomason Jr., MD Medical Oncologist/Hematologis t Medical Oncology 03/02/21 Dmitry Laguna MD [address] [facility] [place] [address] Referring Physician Endocrinology Diabetes & Metabolism 05/21/23 documented as of this encounter
--- OUTSIDE RECORDS SUMMARY | 2024-09-30 11:42 | XMS_ITS | Encounter Summary ---
Author Organization [facility] Facility Care Team Providers Care Emr Trainer Name Role Phone Paddy Riley MD, Fabrizio Unavailable [phone] Chris Mahmood DO Primary Care Provider + No, Physician Primary Care Provider [phone] Shruthi Modi MD Primary Care Provider Dmitry Laguna MD Unavailable [phone] Encounter Details Date Type Department Care Team (Latest Contact Info) Description 10/17/2017 Orders Only [facility] CLINCONV ProviderRay MD [address] [place], [place] [id number] Social History Tobacco Use Types Packs/Day Years Used Date Smoking Tobacco: Never Assessed Comments Unknown Sex and Gender Information Value Date Recorded Sex Assigned at Not on file 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 Sex 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 Gender Identity Female 07/23/2020 8:34 PM AUDITOR Sexual Orientation Straight 07/23/2020 8: 34 PM AUDITOR documented as of this encounter Plan of [...] documented as of this encounter Care Teams Emr Trainer Relationship Specialty Start Date End Date Chris Mahmood DO [address] [place] [address] PCP - General Family Medicine 07/05/21 10/04/21 No, Physician PCP - General 10/15/21 10/23/21 Shruthi Modi MD [address] [facility] [address] PCP - General Family Practice 10/24/21 Fabrizio Thomason Jr., MD Medical Oncologist/Hematologis t Medical Oncology 03/02/21 Dmitry Laguna MD [address] [facility] [address] Referring Physician Endocrinology Diabetes & Metabolism 05/21/23 documented as of this encounter
--- OUTSIDE RECORDS SUMMARY | 2024-09-30 11:42 | XMS_ITS | Clinical Summary ---
Author Organization [facility] Address [address] [place] [address] Phone Care Team Providers Care Generator Rebuilder Name Role Phone Shruthi Modi MD Primary Care Provider Allergies Active Allergy Reactions Criticality Noted Date Comments Dihydroergotamine Unknown,Headache, Other (See Comments) High 12/10/2016 feeeling of knives breaking through the skin Causes HTN Hypertensive crisis Causes HTN Other reaction(s): Chest tightness Causes HTN Crisis Hypertensive crisis Other reaction(s): Chest tightness Causes HTN Crisis Other reaction(s): Chest pressure, Chest tightness, Other (See comments) Causes HTN Other reaction(s): Chest tightness Causes HTN Crisis Hypertensive crisis Hypertensive crisis Headache Headache Causes HTN Other reaction(s): Chest tightness Causes HTN Crisis Hypertensive crisis Other reaction(s): Chest tightness Causes HTN Crisis Other reaction(s): Chest pressure, Chest tightness, Other (See comments) Causes HTN Other reaction(s): Chest tightness Causes HTN Crisis Hypertensive crisis Hypertensive crisis Headache Headache Hypertensive crisis Causes HTN Other reaction(s): Chest tightness Causes HTN Crisis Hypertensive crisis Other reaction(s): Chest tightness Causes HTN Crisis Other reaction(s): Chest pressure, Chest tightness, Other (See comments) Causes HTN Other reaction(s): Chest tightnessCauses HTN Crisis Hypertensive crisis Hypertensive crisis Headache Headache feeeling of knives breaking through the skin Causes HTN Other reaction(s): Chest tightness Causes HTN Crisis Hypertensive crisis Other reaction(s): Chest tightness Causes HTN Crisis Other reaction(s): Chest pressure, Chest tightness, Other (See comments) Causes HTN Other reaction(s): Chest tightness Causes HTN Crisis Hypertensive crisis Hypertensive... (TRUNCATED) feeeling of knives breaking through the skin Causes HTN Causes HTN Other reaction(s): Chest tightness Causes HTN Crisis Hypertensive crisis Other reaction(s): Chest tightness Causes HTN Crisis Other reaction(s): Chest pressure, Chest tightness, Other (See comments) Causes HTN Other reaction(s): Chest tightness Causes HTN Crisis Hypertensive crisis Hypertensive crisis Headache Headache Hypertensive crisis Causes HTN Other reaction(s): Chest tightness Causes HTN Crisis Hypertensive crisis Other reaction(s): Chest tightness Causes HTN Crisis Other reaction(s): Chest pressure, Chest tightness, Other (See comments) Causes HTN Other reaction(s): Chest tightness Causes HTN Crisis Hypertensive crisis Hypertensive crisis Headache Headache Hypertensive crisis Causes HTN Other reaction(s): Chest tightness Causes HTN Crisis Hypertensive crisis Other reaction(s): Chest tightness Causes HTN Crisis Other reaction(s): Chest pressure, Chest tightness, Other (See comments) Causes HTN Other reaction(s): Chest tightness Causes HTN Crisis Hypertensive crisis Hypertensive crisis Headache Headache Causes HTN Other reaction(s): Chest tightness Causes HTN Crisis Hypertensive crisis Other reaction(s): Chest tightness Causes HTN Crisis Other reaction(s): Chest pressure, Chest tightness, Other (See comments) Causes HTN Other reaction(s): Chest tightness Causes HTN Crisis Hypertensive crisis Hypertensive crisis Headache Headache Hypertensive crisis Causes HTN Other reaction(s): Chest tightness Causes HTN Crisis Hypertensive crisis Other reaction(s): Chest tightness Causes HTN Crisis Other reaction(s): Chest pressure, Chest tightness, Other (See comments) Causes HTN Other reaction(s): Chest tightnessCauses HTN Crisis Hypertensive crisis Hypertensive crisis Headache Headache feeeling of knives breaking through the skin Droperidol Anxiety,Itching,O ther (See Comments) High 12/08/2013 Feel like bugs crawling under the skin feels like bugs are crawling under my skin Skin crawling Other reaction(s): Other Skin crawling Other reaction(s): Other (See Comments) Feel like bugs crawling under the skin feels like bugs are crawling under my skin Skin crawling Other reaction(s): Other Skin crawling Other reaction(s): Other (See Comments) Feel like bugs crawling under the skin Other reaction(s): Other (see comment) Other reaction(s): Other Skin crawling Other reaction(s): Other (See Comments) Feel like bugs crawling under the skin feels like bugs are crawling under my skin Skin crawling feels like bugs are crawling under my skin Skin crawling Itching Itching Other reaction(s): Other Skin crawling Other reaction(s): Other (See Comments) Feel like bugs crawling under the skin feels like bugs are crawling under my skin Skin crawling Other reaction(s): Other Skin crawling Other reaction(s): Other (See Comments) Feel like bugs crawling under the skin Other reaction(s): Other (see comment) Other reaction(s): Other Skin crawling Other reaction(s): Other (See Comments) Feel like bugs crawling under the skin feels like bugs are crawling under my skin Skin crawling feels like bugs are crawling under my skin Skin crawling Itching Itching Other reaction(s): Other Skin crawling Other reaction(s): Other (See Comments) Feel like bugs crawling under the skin Other reaction(s): Other (see comment) Other reaction(s): Other Skin crawling Other reaction(s): Other (See Comments) Feel like bugs crawling under the skin feels like bugs are crawling under my skin Skin crawling feels like bugs are crawling under my skin Skin crawling Skin crawling Feel like bugs crawling under the skin Other reaction(s): Other Skin crawling Other reaction(s): Other (See Comments) Feel like bugs crawling under the skin feels like bugs are crawling under my skin Skin crawling Other reaction(s): Other Skin crawling Other reaction(s): Other (See Comments) Feel like bugs crawling under the skin Other reaction(s): Other (see comment) Other reaction(s): Other Skin crawling Other reaction(s): Other (See Comments) Feel like bugs crawling under the skin feels like bugs are crawling under my skin Skin crawling feels like bugs are crawling under my skin Skin crawling Itching Itching feels like bugs are crawling under my skin Skin crawling Other reaction(s): Other Skin crawling Other reaction(s): Other (See Comments) Feel like bugs crawling under the skin feels like bugs are crawling under my skin Skin crawling Other reaction(s): Other Skin crawling Other reaction(s): Other (See Comments) Feel like bugs crawling under the skin Other reaction(s): Other (see comment) Other reaction(s): Other Skin crawling Other reaction(s): Other (See Comments) Feel like bugs crawling under the skin feels like bugs are crawling under my skin Skin crawling feels like bugs are crawling under my skin Skin crawling Itching Itching Haloperidol Anxiety,Itching,O ther (See Comments) High 12/08/2013 Feel like bugs crawling under the skin feels like bugs are crawling under my skin Skin crawl Other reaction(s): Hyperactive Other reaction(s): Other Skin crawl Other reaction(s): Other (See Comments) Feel like bugs crawling under the skin Other reaction(s): Hyperactive feels like bugs are crawling under my skin Skin crawl feels like bugs are crawling under my skin Skin crawl Itching Itching Other reaction(s): Hyperactive Other reaction(s): Other Skin crawl Other reaction(s): Other (See Comments) Feel like bugs crawling under the skin Other reaction(s): Hyperactive feels like bugs are crawling under my skin Skin crawl feels like bugs are crawling under my skin Skin crawl Itching Itching Other reaction(s): Other Skin crawl Other reaction(s): Other (See Comments) Feel like bugs crawling under the skin Other reaction(s): Hyperactive feels like bugs are crawling under my skin Skin crawl Skin crawl Feel like bugs crawling under the skin Other reaction(s): Hyperactive Other reaction(s): Other Skin crawl Other reaction(s): Other (See Comments) Feel like bugs crawling under the skin Other reaction(s): Hyperactive feels like bugs are crawling under my skin Skin crawl feels like bugs are crawling under my skin Skin crawl Itching Itching feels like bugs are crawling under my skin Skin crawl Other reaction(s): Hyperactive Other reaction(s): Other Skin crawl Other reaction(s): Other (See Comments) Feel like bugs crawling under the skin Other reaction(s): Hyperactive feels like bugs are crawling under my skin Skin crawl feels like bugs are crawling under my skin Skin crawl Itching Itching Ketorolac Other (See Comments) Medium 12/09/2016 my stomach chowdhury really bad because I have ulcers Bleeding ulcers my stomach chowdhury really bad because I have ulcers Bleeding ulcers Stomach/GI Upset Stomach/GI Upset Causes ulcers in her stomach to get worse. Not truly allergic. Causes ulcers in her stomach to get worse. Not truly allergic. Causes ulcers in her stomach to get worse. Not truly allergic. Other reaction(s): GI Distress Causes ulcers in her stomach to get worse. Not truly allergic. my stomach chowdhury really bad because I have ulcers Other reaction(s): GI intolerance Causes ulcers in her stomach to get worse. Not truly allergic. Other reaction(s): GI Upset, Other (see comment) Causes ulcers in her stomach to get worse. Not truly allergic. Causes ulcers in her stomach to get worse. Not truly allergic. Other reaction(s): GI Distress Causes ulcers in her stomach to get worse. Not truly allergic. my stomach chowdhury really bad because I have ulcers Causes ulcers in her stomach to get worse. Not truly allergic. my stomach chowdhury really bad because I have ulcers my stomach chowdhury really bad because I have ulcers Bleeding ulcers Stomach/GI Upset Stomach/GI Upset Causes ulcers in her stomach to get worse. Not truly allergic. my stomach chowdhury really bad because I have ulcers Bleeding ulcers Stomach/GI Upset Stomach/GI Upset my stomach chowdhury really bad because I have ulcers Bleeding ulcers Metoclopramide Anxiety,Unknown,I tching,Other (See Comments) High 12/09/2016 Feels like bugs crawling under skin Other reaction(s): Other (See Comments) Feels like bugs crawling under skin tingling Feels like bugs crawling under skin Other reaction(s): Hyperactive Other reaction(s): Other (See Comments) Feels like bugs crawling under skin Other reaction(s): Other tingling feels like bug are crawling and trying to get under my skin tingling Itching Itching feels like bug are crawling and trying to get under my skin tingling Other reaction(s): Hyperactive Other reaction(s): Other (See Comments) Feels like bugs crawling under skin Other reaction(s): Other tingling feels like bug are crawling and trying to get under my skin tingling Itching Itching feels like bug are crawling and trying to get under my skin tingling Other reaction(s): Hyperactive Other reaction(s): Other (See Comments) Feels like bugs crawling under skin Other reaction(s): Other tingling feels like bug are crawling and trying to get under my skin tingling Itching Itching Other reaction(s): Hyperactive Other reaction(s): Other (See Comments) Feels like bugs crawling under skin Other reaction(s): Other tingling feels like bug are crawling and trying to get under my skin tingling Itching Itching feels like bug are crawling and trying to get under my skin tingling Other reaction(s): Hyperactive Other reaction(s): Other (See Comments) Feels like bugs crawling under skin Other reaction(s): Other tingling feels like bug are crawling and trying to get under my skin tingling Itching Itching Nsaids (Non-Steroidal Anti-Inflammatory Drug) Other (See Comments),Nausea and Vomiting Low 07/06/2020 Other reaction(s): GI Upset, Other (see comment), Vomiting Other reaction(s): GI Upset, Other (see comment), Vomiting Bleeding ulcers Other reaction(s): GI Intolerance Prochlorperazine Anxiety,Unknown,I tching,Other (See Comments) High 12/09/2016 Tolerates phenergan Feels jittery, like 'bugs crawling under skin'. Trouble sitting still feels like bugs are crawling under my skin skin crawling Tolerates phenergan Feels jittery, like 'bugs crawling under skin'. Trouble sitting still Other reaction(s): Hyperactive Tolerates phenergan Feels jittery, like 'bugs crawling under skin'. Trouble sitting still Other reaction(s): Other Skin crawling Tolerates phenergan Feels jittery, like 'bugs crawling under skin'. Trouble sitting still feels like bugs are crawling under my skin skin crawling Tolerates phenergan Feels jittery, like 'bugs crawling under skin'. Trouble sitting still Itching Itching Other reaction(s): Hyperactive Tolerates phenergan Feels jittery, like 'bugs crawling under skin'. Trouble sitting still Other reaction(s): Other Skin crawling Tolerates phenergan Feels jittery, like 'bugs crawling under skin'. Trouble sitting still feels like bugs are crawling under my skin skin crawling Tolerates phenergan Feels jittery, like 'bugs crawling under skin'. Trouble sitting still Itching Itching feels like bugs are crawling under my skin skin crawling Tolerates phenergan Feels jittery, like 'bugs crawling under skin'. Trouble sitting still Other reaction(s): Hyperactive Tolerates phenergan Feels jittery, like 'bugs crawling under skin'. Trouble sitting still Other reaction(s): Other Skin crawling Tolerates phenergan Feels jittery, like 'bugs crawling under skin'. Trouble sitting... (TRUNCATED) Skin crawling Feel like bugs crawling under the skin Tolerates phenergan Feels jittery, like 'bugs crawling under skin'. Trouble sitting still Other reaction(s): Hyperactive Tolerates phenergan Feels jittery, like 'bugs crawling under skin'. Trouble sitting still Other reaction(s): Other Skin crawling Tolerates phenergan Feels jittery, like 'bugs crawling under skin'. Trouble sitting still feels like bugs are crawling under my skin skin crawling Tolerates phenergan Feels jittery, like 'bugs crawling under skin'. Trouble sitting still Itching Itching feels like bugs are crawling under my skin skin crawling Tolerates phenergan Feels jittery, like 'bugs crawling under skin'. Trouble sitting still Other reaction(s): Hyperactive Tolerates phenergan Feels jittery, like 'bugs crawling under skin'. Trouble sitting still Other reaction(s): Other Skin crawling Tolerates phenergan Feels jittery, like 'bugs crawling under skin'. Trouble sitting still feels like bugs are crawling under my skin skin crawling Tolerates phenergan Feels jittery, like 'bugs crawling under skin'. Trouble sitting still Itching Itching feels like bugs are crawling under my skin skin crawling Tolerates phenergan Feels jittery, like 'bugs crawling under skin'. Trouble sitting still Other reaction(s): Hyperactive Tolerates phenergan Feels jittery, like 'bugs crawling under skin'. Trouble sitting still Other reaction(s): Other Skin crawling Tolerates phenergan Feels jittery, like 'bugs crawling under skin'. Trouble sitting still feels like bugs are crawling under my skin skin crawling Tolerates phenergan Feels jittery, like 'bugs crawling under skin'. Trouble sitting still Itching Itching Other reaction(s): Hyperactive Tolerates phenergan Feels jittery, like 'bugs crawling under skin'. Trouble sitting still Other reaction(s): Other Skin crawling Tolerates phenergan Feels jittery, like 'bugs crawling under skin'. Trouble sitting still feels like bugs are crawling under my skin skin crawling Tolerates phenergan Feels jittery, like 'bugs crawling under skin'. Trouble sitting still Itching Itching feels like bugs are crawling under my skin skin crawling Tolerates phenergan Feels jittery, like 'bugs crawling under skin'. Trouble sitting still Other reaction(s): Hyperactive Tolerates phenergan Feels jittery, like 'bugs crawling under skin'. Trouble sitting still Other reaction(s): Other Skin crawling Tolerates phenergan Feels jittery, like 'bugs crawling under skin'. Trouble sitting still feels like bugs are crawling under my skin skin crawling Tolerates phenergan Feels jittery, like 'bugs crawling under skin'. Trouble sitting still Itching Itching Sulfa (Sulfonamide Antibiotics) Anaphylaxis High 12/09/2016 Anaphylaxis Anaphylaxis Anaphylaxis Anaphylaxis Sumatriptan Unknown,Other (See Comments) High 12/09/2016 Hypertensive crisis hypertension Hypertensive crises Other reaction(s): Other htn Other reaction(s): Other (See Comments) Hypertensive crisis Hypertensive crises hypertension hypertension Other reaction(s): Other htn Other reaction(s): Other (See Comments) Hypertensive crisis hypertension htn Hypertensive crisis Other reaction(s): Other htn Other reaction(s): Other (See Comments) Hypertensive crisis Hypertensive crises hypertension hypertension Hypertensive crises Medications topiramate (Topamax) 100 mg tablet 2 times daily. Activ e albuterol sulfate 90 mcg/Actuation inhaler Take 2 Puffs by inhalation every 4 hours as needed. Active aMILoride (MIDAMOR) 5 mg tablet Active ARIPiprazole (ABILIFY) 20 mg tablet Take 20 mg by mouth daily. Active atomoxetine (STRATTERA) 100 mg Capsule Take 100 mg by mouth daily. Active azelastine (ASTELIN) 137 mcg/actuation nasal spray Administer 2 Sprays in each nostril 2 times daily. Active baclofen (LIORESAL) 10 mg tablet Take 10 mg by mouth. Active buPROPion HCL (WELLBUTRIN XL) 300 mg Extended Release 24 hour tablet Take 300 mg by mouth daily in the morning. Active butalbital-acetamin ophen-caffeine (FIORICET) 50-325-40 mg tablet Active ergocalciferol (VITAMIN D2) 50,000 unit capsule Take 50,000 Units by mouth every 30 days. Active esomeprazole (NexIUM) 40 mg Capsule, Delayed Release(E.C.) esomeprazole magnesium 40 mg capsule,delayed release Active fenofibrate nanocrystallized (TRICOR) 145 mg tablet fenofibrate nanocrystallized 145 mg tablet Active Ajovy Syringe 225 mg/1.5 mL Syringe INJECT 1.5 ML UNDER SKIN EVERY 30 DAYS Active HYDROcodone-acetami nophen (NORCO) 7.5-325 mg Tablet Take 1 Tablet by mouth every 6 hours as needed. Active lamoTRIgine (LaMICtal) 25 mg tablet TAKE 1 TABLET BY MOUTH DAILY FOR 14 DAYS THEN TAKE 2 TABLETS BY MOUTH DAILY FOR 14 DAYS Active lamoTRIgine (LaMICtal) 100 mg tablet Take 100 mg by mouth daily. Active latanoprost (XALATAN) 0.005 % solution INSTILL 1 DROP IN EACH EYE DAILY AT BEDTIME Active lifitegrast (Xiidra) 5 % Dropperette 1 Drop by Ophthalmic route 2 times daily. Active Linzess 72 mcg Capsule capsule TAKE 1 CAPSULE BY MOUTH EVERY MORNING Active Lotemax SM 0.38 % Drops, Gel INSTILL 1 DROP INTO BOTH EYES THREE TIMES DAILY Active ondansetron (ZOFRAN ODT) 8 mg Tablet, Rapid Dissolve Active Vuity 1.25 % Drops INSTILL 1 DROP IN EACH EYE DAILY Active polyethylene glycol 3350 (MIRALAX) 17 gram/dose Powder Take 17 Grams by mouth 2 times daily. Active propranoloL (INDERAL LA) 120 mg Long Acting 24 hour capsule Active rosuvastatin (CRESTOR) 10 mg tablet Active sucralfate (CARAFATE) 100 mg/mL suspension SHAKE WELL AND TAKE 10 ML BY MOUTH FOUR TIMES DAILY Active zolpidem (AMBIEN) 10 mg tablet TAKE 1 TABLET BY MOUTH EVERY DAY AT BEDTIME Active hydrocortisone (HYTONE) 2.5 % Ointment hydrocortisone 2.5 % topical ointment Active viloxazine (Qelbree) 200 mg Capsule, Sust. Release 24HR Take 200 mg by mouth daily. Active fluticasone propion-salmeteroL (ADVAIR DISKUS,WIXELA INHUB) 250-50 mcg/dose disk inhaler Take 1 Puff by inhalation 2 times daily. Active Active Problems No known active problems Social History Tobacco Use Types Packs/Day Years Used Date Smoking Tobacco: Never Assessed Comments Unknown Sex and Gender Information Value Date Recorded Sex Assigned at Not on file Legal Sex Female 11:42 AM CDT Gender Identity Not on file Sexual Orientation Not on file Plan of Treatment Health Maintenance Due Date Last Done Comments DIABETES ANNUAL FOOT EXAM 1987 DIABETES ANNUAL RETINAL EXAM 1987 DIABETES MICROALBUMIN ANNUAL SCREEN 1987 LDL CHOLESTEROL ANNUAL 1987 HEPATITIS B VACCINES (1 of 3 - 19+ 3-dose series) 1988 COLORECTAL SCREENING 2014 Colorectal Cancer Screening 2014 FIT-DNA Q 3 years 2014 FIT/FOBT Q 1 year 2014 Flex Sig/CT Colonography Q 5 years 2014 CERVICAL CANCER SCREENING 11/05/2021 11/05/2018 BREAST CANCER SCREENING 11/26/2022 11/27/19, 03/23/2021, 01/31/2021, Additional history exists DIABETES HBA1C Q 6 MONTHS 04/27/2023 10/25/2022 INFLUENZA VACCINE (#1) 2024 , 05/22/2021, 05/17/2020, Additional history exists COVID-19 Vaccine (2023-2 5 season) 2024 12/27/2021, 11/14/2020, 10/24/2020 DTAP/TDAP/TD VACCINES (6 - T d or Tdap) 01/01/2032 12/31/2021, 10/08/2018, 01/01/2016, Additional history exists ZOSTER VACCINE Completed 08/22/2020, 05/19, 05/17/2020 Insurance [employer] PPO [facility] Address: [address] [place] [address] Care Teams Generator Rebuilder Relationship Specialty Start Date End Date Shruthi Modi MD [address] [place] [id number] PCP - General Family Practice 04/11/22
--- OUTSIDE RECORDS SUMMARY | 2024-09-30 11:42 | XMS_ITS | Encounter Summary ---
Author Organization [facility] Care Team Providers Care Statistics Teacher Name Role Phone Paddy Riley MD, Fabrizio Unavailable [phone] Chris Mahmood DO Primary Care Provider + No, Physician Primary Care Provider [phone] Shruthi Modi MD Primary Care Provider Dmitry Laguna MD Unavailable [phone] Encounter Details Date Type Department Care Team (Latest Contact Info) Description 12/09/2016 Orders Only [facility] ProviderRay MD [address] [place] [id number] Social History Tobacco Use Types Packs/Day Years Used Date Smoking Tobacco: Never Assessed Comments Unknown Sex and Gender Information Value Date Recorded Sex Assigned at Not on file Legal Sex Female 6:55 AM SENIOR DATA MODELER Gender Identity Female 07/23/2020 8:34 PM SENIOR DATA MODELER Sexual Orientation Straight 07/23/2020 8: 34 PM SENIOR DATA MODELER documented as of this encounter Plan of Treatment Not on file documented as of this encounter Procedures Procedure Name Priority Date/Time Associated Diagnosis Comments CARDIOLOGY REPORT 12/09/2016 12: 00 AM CDT documented in this encounter Results * CARDIOLOGY REPORT (12/09/2016 12:00 AM CDT) Anatomical Region Laterality Modality Other Narrative 12/09/2016 12:00 AM CDT Ordered by an unspecified [...] documented as of this encounter Care Teams Statistics Teacher Relationship Specialty Start Date End Date Chris Mahmood DO [address] [place] [id number] PCP - General Family Medicine 07/05/21 10/04/21 No, Physician PCP - General 10/15/21 10/23/21 Shruthi Modi MD [address] [place] [address] PCP - General Family Practice 10/24/21 Fabrizio Thomason Jr., MD Medical Oncologist/Hematologis t Medical Oncology 03/02/21 Dmitry Laguna MD [address] [facility] [place] [address] Referring Physician Endocrinology Diabetes & Metabolism 05/21/23 documented as of this encounter
--- OUTSIDE RECORDS SUMMARY | 2024-09-30 11:42 | XMS_ITS | Encounter Summary ---
Author Organization [facility] Facility Care Team Providers Care Public Health Name Role Phone Paddy Riley MD, Fabrizio Unavailable [phone] Chris Mahmood DO Primary Care Provider + No, Physician Primary Care Provider [phone] Shruthi Modi MD Primary Care Provider Dmitry Laguna MD Unavailable Encounter Details Date Type Department Care Team (Latest Contact Info) Description 01/29/2016 Orders Only [facility] CLINCONV ProviderRay MD [address] [place] [id number] Social History Tobacco Use Types Packs/Day Years Used Date Smoking Tobacco: Never Assessed Comments Unknown Sex and Gender Information Value Date Recorded Sex Assigned at Not on file Legal Sex Female 6:55 AM PHYSICAL DIRECTOR Gender Identity Female 07/23/2020 8:34 PM PHYSICAL DIRECTOR Sexual Orientation Straight 07/23/2020 8: 34 PM PHYSICAL DIRECTOR documented as of this encounter Plan of Treatment Not on file documented as of this encounter Procedures Procedure Name Priority Date/Time Associated Diagnosis Comments CARDIOLOGY REPORT 02/22/2016 12: 00 AM CDT documented in this encounter Results * CARDIOLOGY REPORT (02/22/2016 12:00 AM CDT) Anatomical Region Laterality Modality Other Narrative 02/22/2016 12:00 AM CDT Ordered by an unspecified [...] documented as of this encounter Care Teams Public Health Relationship Specialty Start Date End Date Chris Mahmood DO [address] [place] [id number] PCP - General Family Medicine 07/05/21 10/04/21 No, Physician PCP - General 10/15/21 10/23/21 Shruthi Modi MD [address] [place] [address] PCP - General Family Practice 10/24/21 Fabrizio Thomason Jr., MD Medical Oncologist/Hematologis t Medical Oncology 03/02/21 Dmitry Laguna MD [address] [facility] [place] [address] Referring Physician Endocrinology Diabetes & Metabolism 05/21/23 documented as of this encounter
[2024-09-30 15:31] LABS: Anion Gap 12 mmol/L (4-12); Blood Urea Nitrogen 22 mg/dL (7-17); Calcium 9.5 mg/dL (8.4-10.2); Carbon Dioxide 20 mmol/L (22-30); Chloride 102 mmol/L (98-107); Estimated Glomerular Filt Rate > 60; Glucose 109 mg/dL (65-110); Potassium 4.7 mmol/L (3.4-5.0); Sodium 134 mmol/L (137-145)
== END 2024-09-30 11:37 | disposition home or self-care (01) ==
PROVIDERS: Anesthesiology; Visit Provider Urology
DX: Z01.812 Encounter for preprocedural laboratory examination (principal); E11.9 Type 2 diabetes mellitus without complications
CPT/HCPCS: 36415; 80048

== ENCOUNTER 2024-09-30 15:37 | Emergency (ER) | payer OTHER, SELFPAY ==
--- OUTSIDE RECORDS SUMMARY | 2024-09-30 15:41 | XMS_ITS | Patient Health Summary ---
Author Organization [facility] Address [address] [facility] [place] [address] Care Team Providers Care Licensed Clinical Psychologist Name Role Phone Charlene Murillo MD Unavailable [phone] Lenin Frances MD Unavailable [phone] Sylvester Brown MD Unavailable [phone] Cornell Bingham MD Unavailable [phone] Pcp, [address] Primary Care Provide r Unavailable Note from [facility],non-owned Affiliates and Associated Physician Practices is amultiple site organization consisting of ambulatory clinics and hospital sitesin [place], [place]. This disclosure is being madepursuant to the Care Everywhere program and may not contain all information available regarding this patient. Last updated 18.[facility] Allergies * Prochlorperazine(Tolerates phenergan, Feels jittery, [...] Alwaysverify current medications with the patient. * cdrggchoys-tvchtnbtquaky-ashyfphd (FIORICET) 50-300-40 MG capsule Take 1 Cap [...] * vitamin D, ergocalciferol, (DRISDOL) 1.25 MG (83583 UT) capsule Take 50,000 Units by mouth [...] ipratropium (ATROVENT) 0.03 % nasal spray(Started 12/15/2019) [place] 1 spray into each nostril 2 times [...] Comments Blood Pressure 120/74 06/27/2020 11:23 AM ROTARY DRYER OPERATOR Pulse 60 06/27/2020 11:23 AM ROTARY DRYER OPERATOR Temperature 35.7 C (96.3 F) 06/27/2020 11:23 AM ROTARY DRYER OPERATOR Respiratory Rate 14 06/27/2020 11:23 AM ROTARY DRYER OPERATOR Oxygen Saturation 100% 06/27/2020 11:23 AM ROTARY DRYER OPERATOR Inhaled Oxygen Concentration - - Weight 70.8 kg (156 lb) 06/27/2020 11:23 AM ROTARY DRYER OPERATOR Height 167.6 cm (5' 6 ) 06/27/2020 11:23 AM ROTARY DRYER OPERATOR Body Mass Index 25.18 06/27/2020 11:23 AM ROTARY DRYER OPERATOR Procedures * URINALYSIS - POINT OF [...] pH units Blood UA neg Negative Specific [place] UA POCT 1.020 1.002 - 1.030 Ketone [...] INSURANCE BILL Comment: Z01.419 Z12.31 Performed by [facility] INSURANCE BILL Comment:Francis Croft, Cyto technologist (ASCP) Electronically Signed by [facility] INSURANCE BILL Comment:Hortencia Lamas MD, Pathologist Comment [...] of containers..01 ThinPrep Vial Resulting Agency Comment [address] [place] [phone] Natali Whiteside BRIDGE DESIGN ENGINEER-SHELLFISH DREDGE OPERATOR LAB - PATHOLOGY/CY TOLOGY ORDERABLES [facility] INSURANCE BILL [address] [place] [address] * COMPREHENSIVE METABOLIC PANEL (10/08/2018 1:18 PM ROTARY DRYER OPERATOR) Only the most recent of6 resultswithin [...] [facility] INSURANCE BILL Comment:FASTING 10/08/2018 1:18 PM ROTARY DRYER OPERATOR 10/08/2018 Narrative Resulting Agency Comment [address] [phone] Willaims Avalos MD LAB - CHEMISTRY KAREN HOLLINS [facility] INSURANCE BILL [address] [place] [address] * LIPID PROFILE (10/08/2018 1:18 PM ROTARY DRYER OPERATOR) Cholesterol 166 <200 mg/dL [facility] INSURANCE BILL Triglycerides 113 <150 mg/dL [facility] INSURANCE BILL HDL Cholesterol 69 >40 mg/dL [facility] INSURANCE BILL VLDL Calculated 23 <=30 mg/dL [facility] INSURANCE BILL LDL Calculated 74 <130 mg/dL [facility] INSURANCE BILL Comment:FASTING 10/08/2018 1:18 PM ROTARY DRYER OPERATOR 10/08/2018 Narrative Resulting Agency Comment [facility] [address] [facility] [phone] Williams Avalos MD LAB - CHEMISTRY KAREN HOLLINS [facility] INSURANCE BILL [address] [place] [address] * (ABNORMAL) CBC W AUTO DIFFERENTIAL (12/24/2016 7:20 PM CDT) Only the most recent of10 resultswithin the time period is included. Pathologist [facility] [place] WBC 9.1 3.5 - 10.5 10 3/uL [facility] RBC 5.33(H) 3.90 - 5.00 10 6/uL [facility] Hemoglobin 11.1(L) 12.0 - 15.5 g/dL [facility] Hematocrit 33.6(L) 35.0 - 45.0 % [facility] MCV 63.0(L) 81.0 - 97.0 fL [facility] MCH 20.8(L) 28.0 - 34.0 pg [facility] MCHC 33.0 32.0 - 36.0 g/dL [facility] Platelet Count 261 150 - 400 10 3/uL [facility] RDW-SD 41.5 36.0 - 50.0 fL [facility] RDW-CV 18.7(H) 11.2 - 14.8 % [facility] MPV 10.3 9.3 - 12.8 fL [facility] nRBC Absolute 0.00 0 10 3/uL [facility] nRBC Auto 0.0 0 /100 WBC [facility] Neutrophils % 63.6 35.0 - 70.0 % [facility] Lymphocytes % 29.6 19.7 - 55.1 % [facility] Monocytes % 6.1 3.0 - 15.0 % [facility] Eosinophils % 0.6 0.0 - 6.0 % [facility] Basophil % 0.1 0.0 - 1.5 % [facility] Neutrophils Absolute 5.8 1.6 - 7.0 10 3/uL [facility] Lymphocyte Absolute 2.7 0.8 - 2.9 10 3/uL [facility] Monocytes Absolute 0.55 0.14 - 0.66 10 3/uL [facility] Eosinophils Absolute 0.05 0.00 - 0.22 10 3/uL [facility] Basophils Absolute 0.01 0.00 - 0.06 10 3/uL [facility] Immature Granulocytes % 0.4 0.0 - 1.0 % [facility] Blood specimen (specimen) BLOOD SPECIMEN / Unknown 12/24/2016 7:20 PM CDT 12/24/2016 7:24 PM CDT Ivan Villanueva MD LAB - HEMATOLOGY ORD ERABLES [address] [phone] * (ABNORMAL) BASIC METABOLIC PANEL (CALCIUM TOTAL) (12/24/2016 7:20 PM CDT) Only the most recent of3 resultswithin the time period is included. BUN 15 7 - 26 mg/dL [facility] Creatinine 0.5(L) 0.6 - 1.2 mg/dL [facility] Sodium 142 136 - 145 mmol/L [facility] Potassium 4.8(H) 3.5 - 4.5 mmol/L [facility] Comment:Hemolysis detected i n this specimen. Hemolysis is known to cause elevations in this analyte. Caution should be exercised in the interpretation of this result. Recommend repeat testing if clinically indicated. Chloride 106 98 - 107 mmol/L [facility] CO2 26 22 - 29 mmol/L [facility] Glucose 90 70 - 115 mg/dL [facility] Calcium 9.0 8.4 - 10.2 mg/dL [facility] Anion Gap 15 8 - 18 [facility] BUN/Creatinine Ratio 30(H) 7 - 23 [facility] Osmolality Calculated 294 270 - 300 mOsm/kg [facility] eGFR >60 >60 mL/min/1. 73 m2 [facility] Blood specimen (specimen) BLOOD SPECIMEN / Unknown 12/24/2016 7:20 PM CDT 12/24/2016 7:24 PM CDT Ivan Villanueva MD LAB - CHEMISTRY KAREN HOLLINS [facility] Organization Address City/State/ZIP Co de Phone Number [facility] [address] [place] [address] * CT ABDOMEN PELVIS WO CONTRAST (12/24/2016 [...] UA Brown(A) Straw, Yellow, Colorless, Light Yellow [facility] Clarity UA Hazy(A) Clear [facility] Specific [place] UA 1.029 1.001 - 1.030 [facility] pH UA 6.0 5.0 - 8.0 [facility] Protein UA 20 <=20 mg/dL [facility] Comment:Checked Glucose UA Negative Negative mg/dL [facility] Ketone UA Negative Negative mg/dL [facility] Bilirubin UA Negative Negative mg/dL [facility] Blood UA Negative Negative [facility] Nitrite UA Negative Negative [facility] Leukocyte Esterase Negative Negative [facility] Urobilinogen UA 2.0 <2.0 mg/dL [facility] RBC UA 5 0 - 8 /HPF [facility] Bacteria UA Rare Rare, Occasional, None /HPF [facility] Mucus UA Many(A) None /LPF [facility] Hyaline Casts UA 2 0 - 2 /LPF [facility] Calcium Oxalate UA Many(A) Rare, Occasional, Few, None /HPF [facility] Urine specimen (specimen) 12/24/2016 6:10 PM CDT 12/24/2016 6:15 PM CDT Ivan Villanueva MD LAB - [place]INALYS[place] [address], [facility] [phone] * CARDIAC EKG ORDER (12/23/2016 10:26 PM [...] Performed by: BOONE NIXON Authorized by: BOONE NIOXN Consent: Verbal consent obtained. Risks and benefits: [...] - 0.049 ng/mL 12/21/2016 12:37 AM CDT [facility] Blood BLOOD SPECIMEN / Unknown Venipuncture / Unknown 12/21/2016 12/21/2016 12:22 AM CDT Narrative [facility] - 12/21/2016 12:37 AM CDT Note: [...] - CHEMISTRY ORDE RABIGNACIA Performing Organization Address [facility] Co de Phone Number [facility] [address] [place], [place] [phone] * (ABNORMAL) URINALYSIS MICROSCOPIC ONLY (12/20/2016 8:56 PM CDT) Pathologist [facility] [place] RBC UA 2-5 0-2, 2-5 # /hpf 12/20/2016 9:16 PM CDT [facility] WBC UA 5-10(A) 0-2, 2-5 # /hpf 12/20/2016 9:16 PM CDT [facility] Bacteria UA 1+(A) None Seen 12/20/2016 9:16 PM CDT [facility] Epithelial Cell UA 5-10(A) 0-2, 2-5 # /hpf 12/20/2016 9:16 PM CDT [facility] Hyaline Casts 0-2 0 - 2 # /lpf 12/20/2016 9:16 PM CDT [facility] Amorphous Phosphate Crystals 4+(A) None Seen 12/20/2016 9:16 PM CDT [facility] Urine URINE SPECIMEN OBTAINED BY CLEAN CATCH PROCEDURE / Unknown 12/20/2016 8:56 PM CDT 12/20/2016 8:58 PM CDT [facility] LAB - URINALYSIS ORD ERABLES Performing Organization Address [facility] Co de Phone Number [facility] [address] [place], [place] [phone] * EKG 12-LEAD (12/20/2016 8:52 PM CDT) Only the most recent of7 resultswithin the time period is included. Ventricular Rate 83 BPM [facility] Atrial Rate 83 BPM [facility] P-R Interval 148 ms [facility] QRS Duration ms 70 ms [facility] Q-T Interval ms 332 ms [facility] QTC Calculation (Bezet) 390 ms [facility] Calculated P [place] 58 degrees [facility] Calculated R [place] 48 degrees [facility] Calculated T [place] 31 degrees [facility] Interpretation EKG NORMAL SINUS RHYTHM MODERATE VOLTAGE CRITERIA FOR LVH, MAY BE NORMAL VARIANT NONSPECIFIC T WAVE ABNORMALITY ABNORMAL ECG WHEN COMPARED WITH ECG OF 19-DEC-2016 19:53, NO ESSENTIAL CHANGE Confirmed by Claudia Coleman ([id number]) on 12/21/2016 5:30:11 PM [facility] 12/20/2016 8:52 PM CDT 12/21/2016 5:30 PM CDT Boone Nixon DO ECG ORDERABLES Performing Organization Address City/[facility]/ZIP Co de Phone Number [facility] * MAGNESIUM BLOOD (12/20/2016 8:44 PM CDT) [facility] Signature Magnesium 2.3 1.6 - 2.6 mg/dL 12/20/2016 11:15 PM CDT [facility] Blood BLOOD SPECIMEN / Unknown Venipuncture / Unknown 12/20/2016 8:44 PM CDT 12/20/2016 11:08 PM CDT Boone Nixon DO LAB - CHEMISTRY ORDE RABLES Performing Organization Address City/[facility]/ZIP Co de Phone Number [facility] [address] [place] [address] * XR CHEST PA AND LATERAL (12/18/2016 [...] Normal, Adequate platelets 12/13/2016 9:55 PM CDT [facility] Blood BLOOD SPECIMEN / Unknown 12/13/2016 9:24 PM CDT 12/13/2016 9:27 PM CDT Johanna Myers MD LAB - HEMATOLOGY ORD ERABLES [facility] [address] [place] [address] * CT HEAD NON CONTRAST (12/10/2016 5:03 [...] cells are normal DIAGNOSIS: Negative Jone Welch BRIDGE DESIGN ENGINEER-SHELLFISH DREDGE OPERATOR CT ORDERABLES * ED CRITICAL CARE (12/10/2016 [...] Yellow, Dark Yellow 12/10/2016 12:59 AM CDT [facility] Clarity UA Cloudy 12/10/2016 12:59 AM CDT [facility] Specific [place] UA 1.017 1.005 - 1.030 12/10/2016 12:59 AM CDT [facility] pH UA 6.0 5.0 - 8.0 pH 12/10/2016 12:59 AM CDT [facility] Protein UA Trace(A) Negative 12/10/2016 12:59 AM CDT [facility] Blood UA Negative Negative 12/10/2016 12:59 AM CDT [facility] Leukocyte UA Negative Negative 12/10/2016 12:59 AM CDT [facility] Nitrite UA Negative Negative 12/10/2016 12:59 AM CDT [facility] Glucose UA Negative Negative 12/10/2016 12:59 AM CDT [facility] Ketone UA Negative Negative 12/10/2016 12:59 AM CDT [facility] Bilirubin UA Negative Negative 12/10/2016 12:59 AM CDT [facility] Urobilinogen UA 1.0 0.1 - 1.0 EU/dL 12/10/2016 12:59 AM CDT [facility] WBC UA Auto 2-5 0-2, 2-5 # /hpf 12/10/2016 12:59 AM CDT [facility] RBC UA Auto 2-5 0-2, 2-5 # /hpf 12/10/2016 12:59 AM CDT [facility] Epithelial Cell UA Auto 2-5 0-2, 2-5 # /hpf 12/10/2016 12:59 AM CDT [facility] Reflex Status Culture not indicated 12/10/2016 12:59 AM T [facility] Urine URINE SPECIMEN OBTAINED BY CLEAN CATCH PROCEDURE / Unknown Collection / Unknown 12/10/2016 12:38 AM CDT 12/10/2016 12:50 AM CDT Yamila Hernández MD LAB - URINALYSIS ORD ERABLES [facility] [address] [place] [address] * (ABNORMAL) DRUG SCREEN TOX URINE PANEL (12/10/2016 12:38 AM CDT) [facility] Amphetamines Screen Urine Not Detected Not Detected 12/10/2016 1:28 AM CDT [facility] Barbiturates Screen Urine Detected(A) Not Detected 12/10/2016 1:28 AM CDT [facility] Benzodiazepines Screen Urine Not Detected Not Detected 12/10/2016 1:28 AM T [facility] Cannabinoids Screen Urine Not Detected Not Detected 12/10/2016 1:28 AM CDT [facility] Cocaine Screen Urine Not Detected Not Detected 12/10/2016 1:28 AM CDT [facility] Methadone Screen Urine Not Detected Not Detected 12/10/2016 1:28 AM T [facility] Opiate Screen Urine Detected(A) Not Detected 12/10/2016 1:28 AM CDT [facility] Phencyclidine Screen Urine Not Detected Not Detected 12/10/2016 1:28 AM T [facility] Urine URINE / Unknown Collection / Unknown 12/10/2016 12:38 AM CDT 12/10/2016 1:13 AM CDT Narrative [facility] - 12/10/2016 1:28 AM CDT This [...] MD LAB - URINE CHEMISTR Y ORDERABLES [facility] [address] [place] [address] * XR CHEST 1VW PORTABLE (05/05/2014 11:33 AM CDT) Anatomical Region Laterality Modality Chest Other Impressions 05/05/2014 3:26 PM CDT Impression: No acute pulmonary process. This report was dictated by Alex Lindsey MD (director of radiology) IDr. ROLANDO M.D. have personally reviewed and [...] report was dictated by Alex Lindsey MD (director of radiology) I, Dr. ROLANDO PARDO M.D. have personally reviewed and interpreted thisexamination/study. This report was electronically signed by ROLANDO PARDO M.D. on05/05/2014 3:26 PM . Joe Harris MD DIAGNOSTIC IMAGING O RDERABLES * CK + CKMB PANEL (05/05/2014 11:29 AM CDT) [facility] CK Total 144 30 - 200 Units/L [facility] CK-MB 0.5 0.0 - 6.6 ng/mL [facility] Blood specimen (specimen) BLOOD SPECIMEN / Unknown 05/05/2014 11:29 AM CDT 05/05/2014 11:29 AM CDT Joe Harris MD [facility] Organization Address City/State/[facility] Co de Phone Number [address] [phone] * (ABNORMAL) DRUG ABUSE PANEL 10-20+ETHANOL URINE NO CONFIRM (05/05/2014 8:50 AM CDT) [facility] Amphetamines Screen Urine Negative Negative : < 1000 ng/mL [facility] Barbiturates Screen Urine Positive(A) Negative : < 200 ng/mL [facility] Comment: Positive urine barbiturate screening results should be confirmed by another generally accepted non-immunological method such as gas chromatography or mass spectrometry. Benzodiazepine Screen Urine Positive(A) Negative : < 200 ng/mL [facility] Comment: Positive urine benzodiazepine screening results should be confirmed by another generally accepted non-immunological method such as gas chromatography or mass spectrometry. Opiates Urine Negative Negative : < 300 ng/mL [facility] Cocaine Metabolites Urine Negative Negative : < 300 ng/mL [facility] Phencyclidine Screen Urine Negative Negative : < 25 ng/ml [facility] Cannabinoids Screen Urine Negative Negative : <50 ng/mL [facility] Methadone Screen Urine Negative Negative : < 300 ng/mL [facility] Urine specimen (specimen) 05/05/2014 8:50 AM CDT 05/05/2014 8:54 AM CDT Narrative [facility] - 05/05/2014 9:13 AM CDT The Urine Toxicology Screening Panel does not screen for Propoxyphene, Meprobamate, Carisoprodol, Trazodone, apyv-jjo-horoafg medications and/or volatiles (Acetone, Isopropanol, Methanol or Ethylene Glycol). Ethanol, Salicylate, Acetaminophen, Tricyclic Antidepressants and several therapeutic drugs may be individually assayed in serum or plasma specimen. Toxicology testing by the [facility] is an aid to medical diagnosis and treatment of patients. No documented chain of custody was maintained. Results are intended to be used for clinical purposes only. Joe Harris MD LAB - URINE CHEMISTR Y ORDERABLES Performing Organization Address City/[facility]/ZIP Co de Phone Number [address] [phone] * (ABNORMAL) RBC MORPHOLOGY (05/05/2014 8:06 AM CDT) Anisocytosis 1+(A) None [facility] Microcytes 3+(A) None [facility] Target Cells Few(A) None [facility] Ovalocytes Few(A) None [facility] Blood specimen (specimen) BLOOD SPECIMEN / Unknown 05/05/2014 8:06 AM CDT 05/05/2014 8:46 AM CDT Joe Harris MD LAB - HEMATOLOGY ORD ERABLES Performing Organization Address [facility] Co de Phone Number [address] [phone] Care Teams Licensed Clinical Psychologist Relationship Specialty Start Date End Date [facility] - General 09/14/24 Charlene Murillo MD [address] [facility] [address] [place] [address] Consulting Physician Pulmonary Disease 04/09/18 Lenin Frances MD [address] [facility] [address] [place] [address] Pain Management Anesthesiology 10/08/18 Sylvester Brown MD [address] [place] [address] Psychiatry 12/23/18 Cornell Bingham MD [address] [place] [address] Cardiovascular Disease 06/15/19
--- OUTSIDE RECORDS SUMMARY | 2024-09-30 15:41 | XMS_ITS | Clinical Summary ---
Author Organization [facility] Address [address] [place] [address] Phone Care Team Providers Care Assembly Machine Operator Name Role Phone Shruthi Modi MD Primary Care Provider [phone] Fortino Hess MD Unavailable [phone] David Beltran DO Unavailable [phone] Allergies Active Allergy Reactions Criticality Noted Date Comments Dihydroergotamine Other (see Comments) High 12/10/2016 feeeling of knives breaking [...] Crisis Hypertensive crisis Hypertensive crisis Headache Headache Other reaction(s): Chest tightness Causes HTN Crisis Other reaction(s): Chest pressure, Chest tightness, Other (See comments) Causes HTN Other reaction(s): Chest tightness Causes HTN Crisis Hypertensive crisis Hypertensive crisis Droperidol Anxiety,Itching,Ot her (see Comments) High 12/08/2013 Feel like bugs crawling [...] are crawling under my skin Skin crawling Haloperidol Anxiety,Other (see Comments),Itching High 12/08/2013 Feel like bugs crawling under [...] are crawling under my skin Skin crawl Ketorolac Tromethamine Other (see Comments) Low 11/27/2017 my stomach chowdhury really bad because I have ulcers Bleeding ulcers my stomach chowdhury really bad because I have ulcers Bleeding ulcers Stomach/GI Upset Stomach/GI Upset Metoclopramide Hcl Anxiety,Itching,Ot her (see Comments) High 2018 Feels like bugs crawling under skin Other reaction(s): Other (See Comments) Feels like bugs crawling under skin Nsaids Other (see Comments),Vomiting Low 07/06/2020 Bleeding ulcers Other reaction(s): GI Intolerance Other reaction(s): GI Upset, Other (see comment), Vomiting Other reaction(s): GI Upset, Other (see comment), Vomiting Bleeding ulcers Other reaction(s): GI Intolerance Prochlorperazine Anxiety,Other (see Comments),Itching High 12/09/2016 Tolerates phenergan Feels jittery, like [...] Trouble sitting still Itching Itching Other reaction(s): Other Skin crawling Tolerates phenergan Feels jittery, like 'bugs crawling under skin'. Trouble sitting still Sulfa Antibiotics Anaphylaxis High 12/09/2016 Sumatriptan Other (see Comments) High 12/09/2016 Hypertensive crisis hypertension Hypertensive crises Other reaction(s): Other htn Other reaction(s): Other (See Comments) Hypertensive crisis Hypertensive crises hypertension hypertension Other reaction(s): Other htn Other reaction(s): Other (See Comments) Hypertensive crisis Medications losartan (COZAAR) 100 MG Tablet Take 100 mg by mouth. 01/03/20 22 Active zolpidem (AMBIEN) 10 MG Tablet zolpidem 10 mg tablet 10/08/19 19 Active rosuvastatin (CRESTOR) 10 MG Tablet rosuvastatin 10 mg tablet 02/21/20 18 Active albuterol 108 (90 Base) MCG/ACT Aerosol Solution take 2 Puffs by inhalation. 04/05/20 21 Active sucralfate (CARAFATE) 1 GM/10ML Suspension Take 1 g by mouth. 07/01/20 20 Active esomeprazole (NexIUM) 40 MG CAPSULE DELAYED RELEASE TAKE 1 CAPSULE BY MOUTH TWICE DAILY 12/26/19 22 Active Aripiprazole 20 MG Tablet Take 20 mg by mouth daily. 09/28/19 21 Active Qelbree 200 MG CAPSULE SR 24 HR 04/14/20 22 Active propranolol (INDERAL LA) 120 MG CAPSULE SR 24 HR 04/14/20 22 Active latanoprost (XALATAN) 0.005 % Solution INSTILL 1 DROP IN BOTH EYES AT BEDTIME 07/29/20 23 Active Glucose Blood (TrueInsiderTouch Ultra) Strip USE TO TEST DAILY 09/01/19 24 Active Advair Diskus 250-50 MCG/ACT AEROSOL POWDER, BREATH ACTIVATED INHALE 1 PUFF INTO THE LUNGS TWICE DAILY 07/12/20 23 Active Auvelity 45-105 MG Tablet Controlled Release Take 1 Tablet by mouth 2 times daily. 08/25/19 24 Active cloNIDine (CATAPRES) 0.1 MG Tablet 08/26/19 24 Active Calcium Carb-Cholecalci ferol 600-20 MG-MCG Tablet Take 1 Tablet by mouth 2 times daily. Active Blood Glucose Monitoring Suppl (ONE TOUCH ULTRA 2) w/Device Kit Use to test fasting sugar daily 09/06/19 23 Active amLODIPine (NORVASC) 10 MG Tablet 08/23/19 24 Active metFORMIN (GLUCOPHAGE-XR) 500 MG TABLET SR 24 HR 11/04/19 24 Active Rimegepant Sulfate (Nurtec) 75 MG TABLET DISPERSIBLE Take 75 mg by mouth. 01/21/20 24 Active aMILoride (MIDAMOR) 5 MG Tablet Take 5 mg by mouth. 02/24/20 24 Active Accu-Chek FastClix Lancets Misc Use to check blood sugar 2-3 times per day. 03/02/20 24 Active HYDROcodone-nakul taminophen (NORCO) 5-325 MG Tablet TAKE 1 TABLET BY MOUTH EVERY 6 HOURS NEEDED 03/09/20 24 Active Galcanezumab-gn lm 120 MG/ML Solution Auto-injector 120 mg by Subcutaneous route. 03/24/20 24 Active baclofen (LIORESAL) 10 MG Tablet Take 10 mg by mouth. 03/09/20 24 Active amLODIPine Besy-Benazepril HCl 10-20 MG Capsule Take by mouth. 02/28/20 17 Active Restasis 0.05 % Emulsion instill 1 drop in each eye twice daily 09/22/19 25 Active Spravato, 84 MG Dose, 28 MG/DEVICE Solution Therapy Pack 3 sprays in each nostril Nasally twice a week for 1 days 07/05/20 24 Active Ozempic, 0.25 or 0.5 MG/DOSE, 2 MG/3ML Solution Pen-injector INJECT 0.5 MG UNDER THE SKIN ONCE A WEEK DIRECTED Subcutaneous for 28 Days 03/31/20 24 Active meloxicam (MOBIC) 15 MG Tablet TAKE 1 TABLET BY MOUTH DAILY Oral for 28 Days 06/01/20 24 Active ondansetron (ZOFRAN-ODT) 8 MG TABLET DISPERSIBLE Take 8 mg by mouth. 05/26/20 24 Active Tenapanor HCl (Ibsrela) 50 MG Tablet 1 tablet immediately before meals Orally Twice a day Active loteprednol etabonate (LOTEMAX) 0.5 % Suspension SHAKE LIQUID AND INSTILL 1 DROP IN EACH EYE THREE TIMES DAILY 09/20/19 25 Active folic acid (FOLVITE) 1 MG TabletIndicatio ns:Folate Deficiency Anemia Take 1 Tablet by mouth daily. Indications: Anemia From Inadequate Folic Acid 90 Tablet 3 09/27/19 25 Active Vuity 1.25 % Solution INSTILL 1 DROP IN EACH EYE DAILY 02/10/20 22 025 Discontin ued(Med List Clean Up) Loteprednol Etabonate (Lotemax SM) 0.38 % Gel Place in affected eye(s). 06/05/20 21 025 Discontin ued(Med List Clean Up) polyethylene glycol (GLYCOLAX) 17 GM/SCOOP Powder Take 17 g by mouth. 12/10/19 22 025 Discontin ued(Med List Clean Up) linaclotide (Linzess) 290 MCG Capsule 08/04/20 23 025 Discontin ued(Med List Clean Up) Januvia 100 MG Tablet 08/25/19 24 025 Discontin ued(Med List Clean Up) Zavegepant HCl (Zavzpret) 10 MG/ACT Solution 1 [place] by Nasal route. 07/07/20 23 025 Discontin ued(Med List Clean Up) hydrOXYzine (ATARAX) 25 MG Tablet if needed. 11/06/06 23 025 Discontin ued(Med List Clean Up) Jardiance 10 MG Tablet 08/23/19 24 025 Discontin ued(Med List Clean Up) estradiol (ESTRACE) 0.1 MG/GM Cream 08/22/19 24 025 Discontin ued(Med List Clean Up) Cequa 0.09 % Solution INSTILL 1 DROP IN BOTH EYES TWICE DAILY 07/30/20 025 Discontin ued(Med List Clean Up) potassium chloride SA (KLORCON M) 20 MEQ Tablet Controlled Release Take 20 mEq by mouth. 02/03/20 24 025 Discontin ued(Med List Clean Up) tiZANidine (ZANAFLEX) 4 MG Tablet Take 4 mg by mouth. 01/13/20 24 025 Discontin ued(Med List Clean Up) Mounjaro 2.5 MG/0.5ML Solution Pen-injector ADMINISTER 2.5 MG UNDER THE SKIN EVERY 7 DAYS. STOP JANUVIA WHEN STARTING 01/11/20 24 025 Discontin ued(Med List Clean Up) zolpidem (AMBIEN) 5 MG Tablet Take 5 mg by mouth. 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); Inverted nipple 09/27/2024 Travel from Last 3 Months Family History Medical History Relation Name Comments Cancer Father Hypertension Father Chronic Obstructive Pulmonary Disease Mother Hypertension Mother Stroke Mother Hypertension Sister 1 Cancer Sister 2 Relation Name Status Comments Father Mother Sister 1 Alive Sister 2 Social History Tobacco Use Types Packs/Day Years Used Date Smoking Tobacco: Former Cigarettes 1 10 0 02/07/2012 - 02/06/2022 Smokeless Tobacco: Never Tobacco Cessation:Counseling Given: Not Answered Alcohol Use Standard Drinks/Week Comments Not Currently 0 (1 standard drink = 0.6 oz pur e alcohol) PHQ-2 Answer Date Recorded Total Score - Questions 1-9 1 07/0 12/2021 Comments No Sex and Gender Information Value Date Recorded Sex Assigned at Female 09/07/2023 6:16 PM SCOREBOARD OPERATOR Legal Sex Female 1:02 PM CDT Gender Identity Female 09/07/2023 6:16 PM SCOREBOARD OPERATOR Sexual Orientation Straight 09/07/2023 6: 16 PM SCOREBOARD OPERATOR Last Filed Vital Signs Vital Sign Reading Time Taken Comments Blood Pressure 160/100 09/27/2024 12:09 PM SCOREBOARD OPERATOR Pulse 75 09/27/2024 12:09 PM SCOREBOARD OPERATOR Temperature 36.6 C (97.8 F) 09/27/2024 12:09 PM SCOREBOARD OPERATOR Respiratory Rate 18 09/27/2024 12:0 9 PM SCOREBOARD OPERATOR Oxygen Saturation 98% 09/27/2024 12: 09 PM SCOREBOARD OPERATOR Inhaled Oxygen Concentration - - Weight 69.3 kg (152 lb 11.2 oz) 025 12:09 PM SCOREBOARD OPERATOR Height 167.6 cm (5' 6 ) 09/27/2024 12:0 9 PM SCOREBOARD OPERATOR Body Mass Index 24.65 09/27/2024 12:09 PM SCOREBOARD OPERATOR Plan of Treatment Upcoming Encounters Date Type Department Care Team (Late st Contact Info) Description 12/27/2024 11:00 AM CDT Office Visit [facility] [address] [phone] David Beltran, [address] [place] [phone] 12/27/2024 11:00 AM CDT Lab [facility] [address] [phone] Nurse, [facility] Health Maintenance Due Date Last Done Comments Hepatitis B Immunization (1 of 3 - 19+ 3-dose series) 1988 Cologuard 2019 Immunochemical Fecal Occult Blood 2019 Influenza Immunization (#1) 2024 092 12/2022, 10/29/2022, 06/12/2022, Additional history exists SARS-COV-2 Immunization ( season) 2024 08/29/2023, 05/12/2023, 10/22/2022, Additional history exists Mammogram 09/03/2026 09/03/2024, 06/18, 07/01/2024, Additional history exists Colonoscopy 12/09/2033 12/10/2023, 01/2021, 07/06/2020 Colorectal Cancer Screening 12/09/2033 Respiratory Syncytial Virus (RSV) Immunization (Adult) (1 - 1-dose 75+ series) 2044 12/10/2023, 01/2021, 07/06/2020 Cervical Cancer Screening (CCS) Discontinued Pap Smear Discontinued 11/05/2018 Zoster Immunization Completed 08/22/2020, 06/15/2020, 05/17/2020 Hepatitis C Virus (HCV) Screening Completed 05/06/2022, 05/06/2022 DTaP/Tdap/Td Immunization Discontinued 2022, 12/31/2021, 10/08/2018, Additional history exists TdaP Immunization Completed 10/29/2022, , 10/08/2018, Additional history exists Pneumococcal Immunization (50+ years) Completed 05/12/2023, 06/15/2019, 10/08/2018 Pneumococcal Immunization Combined Discontinued 05/12/2023, 06/15/2019, 10/08/2018 HPV/Cotest Discontinued Meningococcal Immunization (ACWY) Aged Out No longer eligible based on patient's age to complete this topic Rotavirus Immunization Aged Out No lo nger eligible based on patient's age to complete this topic Procedures Procedure Name Priority Date/Time Associated Diagnosis Comments CBC WITH AUTO DIFF OH Routine 09/27/2024 11:38 AM SCOREBOARD OPERATOR VITAMIN B12 Routine 09/27/2024 11:38 AM SCOREBOARD OPERATOR Anemia, unspecified type Bleeding Other fatigue FOLIC ACID (FOLATE) Routine 09/27/2024 1 1:38 AM SCOREBOARD OPERATOR Anemia, unspecified type Bleeding Other fatigue FERRITIN Routine 09/27/2024 11:38 AM SCOREBOARD OPERATOR Anemia, unspecified type Bleeding Other fatigue IRON W/ IRON BINDING CAPACITY OH Routine 09/27/2024 11:38 AM SCOREBOARD OPERATOR Anemia, unspecified type Bleeding Other fatigue from Last 3 Months Results * IRON W/ IRON BINDING CAPACITY OH (09/27/2024 11:38 AM SCOREBOARD OPERATOR) IRON 162 50 - 212 ug/dL [facility] UIBC 262 155 - 355 ug/dL [facility] TIBC 424 261 - 478 ug/dl [facility] % Saturation 38 20 - 50 % [facility] 09/27/2024 11:3 8 AM SCOREBOARD OPERATOR Narrative [facility] 09/27/2024 1:05 PM SCOREBOARD OPERATOR Release to patient->Immediate us Nisreen Atkinson EXTENSION SERVICE ADVISOR, MEAT COOLER LAB SEND OUTS Fin al Result [facility] [place] [address], * (ABNORMAL) CBC WITH AUTO DIFF [place] (09/27/2024 11:38 AM SCOREBOARD OPERATOR) WBC 5.8 4.0 - 10.0 10*3/uL [facility] HGB 11.1(L) 11.2 - 15.7 g/dL [facility] HCT 35.7 34.1 - 44.9 % [facility] PLT 232 163 - 369 10*3/uL [facility] MPV See below 9.4 - 12.4 fL [facility] Comment:Instrument unable to provide an accurate result RBC 5.41(H) 3.93 - 5.22 10*6/uL [facility] MCV 66(L) 79 - 95 fL [facility] MCH 20.5(L) 25.6 - 32.2 pg [facility] MCHC 31.1(L) 32.2 - 36.5 g/dL [facility] RDW 17.5(H) 11.6 - 14.4 % [facility] Neutrophils % 66.2(H) 36.0 - 66.0 % [facility] Lymphocytes % 24.1 19.0 - 40.0 % [facility] Monocytes % 7.7 4.1 - 12.1 % [facility] Eosinophils % 1.2 0.0 - 3.5 % [facility] Basophils % 0.3 0.0 - 1.0 % [facility] Absolute Neutrophils 3.8 1.4 - 6.6 10*3/uL [facility] Absolute Lymphocytes 1.4 0.8 - 4.0 10*3/uL [facility] Absolute Monocytes 0.5 0.2 - 1.2 10*3/uL [facility] Absolute Eosinophils 0.1 0.0 - 0.4 10*3/uL [facility] Absolute Basophils 0.0 0.0 - 0.1 10*3/uL [facility] WBC Estimate Normal [facility] Platelet Estimate Normal CA [facility] RBC Morphology Abnormal [facility] Microcytosis 2+ [facility] Hypochromasia 2+ [facility] Anisocytosis 1+ [facility] Poikilocytosis 1+ [facility] Target Cells 1+ [facility] Elliptocytes 1+ [facility] Schistocytes 1+ [facility] 09/27/2024 11:3 8 AM SCOREBOARD OPERATOR us Nisreen Atkinson APRN, MEAT COOLER LAB SEND OUTS Fin al Result [facility] [place] [address], * VITAMIN B12 (09/27/2024 11:38 AM SCOREBOARD OPERATOR) Vitamin B12 625 180 - 914 pg/mL [facility] Blood 09/27/2024 11:3 8 AM SCOREBOARD OPERATOR Narrative [facility] 09/28/2024 3:26 PM SCOREBOARD OPERATOR Release to patient->Immediate us Nisreen E Bertaattei EXTENSION SERVICE ADVISOR, MEAT COOLER CHEMISTRY ORDERABLE S Final Result Performing Organization Address City/[facility]/ZIP Co de Phone Number [facility] [address] [place] [address], [place] [phone] * FOLIC ACID (FOLATE) (09/27/2024 11:38 AM SCOREBOARD OPERATOR) Folate >20.00 >=5.90 ng/mL [facility] Blood 09/27/2024 11:3 8 AM SCOREBOARD OPERATOR Narrative [facility] 09/28/2024 3:26 PM SCOREBOARD OPERATOR Release to patient->Immediate IS THE PATIENT REQUIRED TO BE FASTING FOR 12 HOURS?->No us Nisreen Atkinson EXTENSION SERVICE ADVISOR, MEAT COOLER CHEMISTRY ORDERABLE S Final Result Performing Organization Address [facility] Co de Phone Number [facility] [address] [place] [address], [place] [phone] * FERRITIN (09/27/2024 11:38 AM SCOREBOARD OPERATOR) Ferritin 160 11 - 307 ng/mL [facility] Blood 09/27/2024 11:3 8 AM SCOREBOARD OPERATOR [facility] 09/28/2024 3:26 PM SCOREBOARD OPERATOR Release to patient->Immediate us Nisreen E Bertaattei EXTENSION SERVICE ADVISOR, MEAT COOLER CHEMISTRY ORDERABLE S Final Result Performing Organization Address City/[facility]/ZIP Co de Phone Number [facility] [address] [place] [address], [place] [phone] from Last 3 Months Insurance [facility] Care Teams Assembly Machine Operator Relationship Specialty Start Date End Date Shruthi Modi MD [address] [place] [address] PCP - General Family Medicine 01/11/22 Fortino Hess MD [address] [place] [phone] Consulting Physician Oncology 01/11/22 David Beltran DO [address] [place] [address] Consulting Physician Oncology 09/02/23
--- OUTSIDE RECORDS SUMMARY | 2024-09-30 15:41 | XMS_ITS | Clinical Summary ---
Author Organization [facility] Address [address] [facility] [place] [address] Care Team Providers Care Professional Shopper Name Role Phone Charlene Murillo MD Unavailable [phone] Lenin Frances MD Unavailable [phone] Sylvester Brown MD Unavailable [phone] Cornell Bingham MD Unavailable [phone] Pcp, [address] Primary Care Provide r Unavailable Source Comments [facility],non-owned Affiliates and Associated Physician Practices is amultiple site organization consisting of ambulatory clinics and hospital sitesin [place], [place], [place] and [place]. This disclosure is being madepursuant to the Care Everywhere program and may not contain all information available regarding this patient. Last updated 18.[facility] Allergies Active Allergy Reactions Criticality Noted Date [...] Active vitamin D, ergocalciferol, (DRISDOL) 1.25 MG (48497 UT) capsule Take 50,000 Units by mouth [...] sprayIndications: Other migraine without status migrainosus, intractable [place] 1 spray into each nostril 2 times [...] Comments Blood Pressure 120/74 06/27/2020 11:23 AM FAMILY PHYSICIAN Pulse 60 06/27/2020 11:23 AM FAMILY PHYSICIAN Temperature 35.7 C (96.3 F) 06/27/2020 11:23 AM FAMILY PHYSICIAN Respiratory Rate 14 06/27/2020 11:23 AM FAMILY PHYSICIAN Oxygen Saturation 100% 06/27/2020 11:23 AM FAMILY PHYSICIAN Inhaled Oxygen Concentration - - Weight 70.8 kg (156 lb) 06/27/2020 11:23 AM FAMILY PHYSICIAN Height 167.6 cm (5' 6 ) 06/27/2020 11:23 AM FAMILY PHYSICIAN Body Mass Index 25.18 06/27/2020 11:23 AM FAMILY PHYSICIAN Plan of Treatment Health Maintenance Due Date [...] exam COMPREHENSIVE METABOLIC PANEL 10/08/2018 1:18 PM FAMILY PHYSICIAN from Last 3 Months or Most Recently [...] of containers..01 ThinPrep Vial Resulting Agency Comment [address] [phone] Natali SANCHEZ LAB - PATHOLOGY/CY TOLOGY ORDERABLES [facility] INSURANCE BILL [address] [place] [address] * COMPREHENSIVE METABOLIC PANEL (10/08/2018 1:18 PM FAMILY PHYSICIAN) Glucose 98 74 - 106 mg/dL [facility] [...] [facility] INSURANCE BILL Comment:FASTING 10/08/2018 1:18 PM FAMILY PHYSICIAN 10/08/2018 Narrative Resulting Agency Comment [facility] [address] [place] [address] [phone] Williams Avalos MD LAB - CHEMISTRY KAREN HOLLINS [facility] Organization Address City/State/ZIP Co de Phone Number [facility] INSURANCE BILL [address] [place] [address] from Last 3 Months or Most Recently Relevant to Health Maintenance Advance Directives Documents on File Type Date Recorded Patient Senior Manager Creative Services Expl anation Adv Directive/Living Will/POA 12/10/2016 * Full Code (Latest Code Status on File) Date Activated Date Inactivated Comments 12/14/2016 12:49 AM 12/16/2016 12:21 PM * Full Code Date Activated Date Inactivated Comments 12/10/2016 2:26 PM 12/11/2016 5:18 PM * Full Code Date Activated Date Inactivated Comments 12/10/2016 1:49 PM 12/10/2016 2:26 PM Care Teams Professional Shopper Relationship Specialty Start Date End Date Pcp, [facility] 3rd PCP - General 09/14/24 Charlene Murillo MD [address] [address] [address] [place] [phone] Consulting Physician Pulmonary Disease 04/09/18 Lenin Frances MD [address] [facility] [address] [place] [address] Pain Management Anesthesiology 10/08/18 Sylvester Brown MD [address] [place] [address] Psychiatry 12/23/18 Cornell Bingham MD [address] [place] [address] Cardiovascular Disease 06/15/19
--- OUTSIDE RECORDS SUMMARY | 2024-09-30 15:41 | XMS_ITS | Encounter Summary ---
Author Organization [facility] Care Team Providers Care Hat Cutter Name Role Phone Paddy Riley MD, Fabrizio Unavailable [phone] Chris Mahmood DO Primary Care Provider + No, Physician Primary Care Provider [phone] Shruthi Modi MD Primary Care Provider Dmitry Laguna MD Unavailable Encounter Details Date Type Department Care Team (Latest Contact Info) Description 10/17/2017 Orders Only [facility] CLINCONV ProviderRay MD [address] [place], [place] [id number] Social History Tobacco Use Types Packs/Day Years Used Date Smoking Tobacco: Never Assessed Comments Unknown Sex and Gender Information Value Date Recorded Sex Assigned at Not on file Legal Sex Female 6:55 AM STUDENT DEVELOPMENT COORDINATOR Gender Identity Female 07/23/2020 8:34 PM STUDENT DEVELOPMENT COORDINATOR Sexual Orientation Straight 07/23/2020 8: 34 PM STUDENT DEVELOPMENT COORDINATOR documented as of this encounter Plan of [...] documented as of this encounter Care Teams Hat Cutter Relationship Specialty Start Date End Date Chris Mahmood DO [address] [place] [id number] PCP - General Family Medicine 07/05/21 10/04/21 No, Physician PCP - General 10/15/21 10/23/21 Shruthi Modi MD [address] [facility] [place] [address] PCP - General Family Practice 10/24/21 Fabrizio Thomsaon Jr., MD Medical Oncologist/Hematologis t Medical Oncology 03/02/21 Dmitry Laguna MD [address] [facility] [place] [address] Referring Physician Endocrinology Diabetes & Metabolism 05/21/23 documented as of this encounter
--- OUTSIDE RECORDS SUMMARY | 2024-09-30 15:41 | XMS_ITS ---
Author Organization [facility] [employer] Address [address] [place] [address] Care Team Providers Care Handle Sewer Name Role Phone Ly FIGUEROA, Shruthi Primary Care Provider Unavailab Nicholas Barber Unavailable [phone] Laith Haji Unavailable [phone] Allergies Allergen (clinical drug ingredient) Drug/Non Drug Allergy documented on EMR Reaction Allergy Type Onset Date Status D.H.E.45 (uncoded) Unknown Allergy 12/12/2023 Active Non-steroidal anti-inflammatory agent (FN) NSAIDS (NON-STEROIDAL ANTI-INFLAMMATORY DRUG) (uncoded) Unknown Allergy 12/12/2023 Active Substance with sulfonamide structure and antibacterial mechanism of action (substance) SULFA (SULFONAMIDE ANTIBIOTICS) (uncoded) Unknown Allergy 12/12/2023 Active ketorolac TORADOL (uncoded) Unknown Allergy 12/12/2023 A ctive Haldol Unknown Drug Allergy 12/12/2023 Active sumatriptan Imitrex Unknown Drug Allergy 12/12/2023 Acti ve metoclopramide Reglan Unknown Drug Allergy 12/12/2023 A ctive Compazine Unknown Drug Allergy 12/12/2023 Active REASON FOR VISIT rates their depression as a 6/10, Esketamine Administration, MIPS diagnosis of HTN Medications Medication SIG (Take, Route, Frequency, Duration) Notes Start Date End Date Status ARIPiprazole 20 MG 1 tablet Oral Once a day for 30 days Active Spravato (84 MG Dose) 28 MG/DEVICE INHALE 84MG PER NASAL ROUTE EVERY WEEK for 7 days Active Esomeprazole Magnesium 40 MG TAKE 1 CAPSULE BY MOUTH EVERY DAY Oral for 30 Days Active Zolpidem Tartrate 10 MG 1 tablet at bedtime as needed Oral Once a day for 30 days As needed 08/03/2024 Active Qelbree 200 MG 3 capsules Oral Once a day for 30 days *Reorder from [facility] for eRx and Interaction Alerts* Active amLODIPine Besylate 10 MG Oral for 30 Days Active HYDROcodone-Acetamin ophen 5-325 MG Oral 12/12/2023 Active Meloxicam 15 MG TAKE 1 TABLET BY MOUTH DAILY Oral for 28 Days Active Baclofen 10 MG TAKE 1 TABLET BY MOUTH THREE TIMES DAILY NEEDED Oral for 28 Days Active Losartan Potassium 100 MG Oral for 30 Days Active Propranolol HCl ER 120 MG Oral for 30 Days Active Ozempic (0.25 or 0.5 MG/DOSE) 2 MG/3ML INJECT 0.5 MG UNDER THE SKIN ONCE A WEEK DIRECTED Subcutaneous for 28 Days Active cloNIDine HCl 0.1 MG Oral for 30 Days Active Emgality 120 MG/ML ADMINISTER 1 ML UNDER THE SKIN EVERY 30 DAYS Subcutaneous for 30 Days Active Rosuvastatin Calcium 10 MG Oral for 30 Days Active metFORMIN HCl ER 500 MG TAKE 2 TABLETS BY MOUTH TWICE DAILY WITH MEALS Oral for 30 Days Active aMILoride HCl 5 MG Oral for 30 Days Active Fluticasone-Salmeter ol 250-50 MCG/ACT INHALE 1 PUFF INTO THE LUNGS TWICE DAILY Inhalation for 30 Days Active Eliquis 5 MG 1 tablet Orally twice a day Active Estradiol 0.1 MG/GM Vaginal for 30 Days Active Ibsrela 50 MG 1 tablet immediately before meals Orally Twice a day Active Gemtesa 75 MG 1 tablet Orally Once a day Active Auvelity 45-105 MG 1 tablet Oral twice a day for 30 days 07/02/2024 Active Social History Sex Assigned At : Social History Observation Description Sex Assigned At Female Vital Signs Blood pressure systolic 140 mm Hg 09/24/19 25 Blood pressure diastolic 89 mm Hg 025 Heart Rate 67 /min 09/24/2024 Height 66.50 in 09/24/2024 Oximetry 89 % 09/24/2024 Height-cm 168.91 cm 09/24/2024 Encounters Encounter Location Date Provider Diagnosis [facility], [facility] [address] [place] [id number] 09/24/2024 Laith Haji Major depressive disorder, recurrent severe without psychotic features F33.2 and Benign essential HTN I10 Assessments Encounter Date Diagnosis (ICD Code) Assessment Notes Treatment Notes Treatment Clinical Notes Section Notes 09/24/2024 Major depressive disorder, recurrent severe without psychotic features (ICD-10 - F33.2) continue current treatment as prescribed by primary psychiartic care provider. 09/24/2024 Benign essential HTN (ICD-10 - I10) 09/24/2024 Other 1. Depression - Patient rates her depression as 6/10. - Plan: a. Continue current antidepressant medication. b. Encourage regular physical activity and healthy sleep schedule. 2. Anxiety - Patient rates her anxiety as 8/10. - Plan: a. Consider initiating anxiolytic medication or adjusting current medication regimen. b. Encourage relaxation techniques like deep breathing exercises and mindfulness meditation. c. Refer for cognitive-behavior al therapy (CBT) to address anxiety symptoms. 3. Sleep - Patient reports getting 6 hours of sleep per night. - Plan: a. Encourage consistent sleep schedule and good sleep hygiene. b. Assess need for sleep aids or medication adjustments at next follow-up if issues persist. 4. Nutrition - Patient acknowledges need to improve eating habits. - Plan: a. Provide educational materials on healthy eating and meal planning. b. Encourage food intake tracking and gradual diet improvements. c. Consider referral to extension work director if concerns persist. 5. Medication Management - Patient reports no new medications or changes to current regimen. - Plan: a. Continue monitoring response to current medications. b. Reassess medication effectiveness and potential side effects at next follow-up. 6. Physical Complaints - Patient did not report any new physical complaints. - Plan: a. Encourage prompt reporting of new or worsening physical symptoms. b. Continue monitoring overall health and well-being during follow-ups. 7. Mental Health Safety - Patient reports no thoughts of suicide, self-harm, hurting others, and no hallucinations, delusions, or paranoia. - Plan: a. Continue monitoring mental health status and ensure patient safety. b. Reassess mental health safety at each follow-up appointment. Plan Of Treatment Treatment Notes Assessment Notes Major depressive disorder, r ecurrent severe without psychotic features continue current treatment as prescribed by primary psychiartic care provider. Next Appt Details Follow Up: 09/28/24 @ 9:00 AM , Reason: david/ Nicholas Provider Name:Nicholas dominguez, 11/12/2024 03:30:00 PM, [address], [place], [address], Medications Administered Medication Instructions Date of Administration Dosage Notes Spravato (84 MG Dose) 09/24/2024 84 mg Progress Notes * TRISTEN BOYDEDOB:1970 (54 yo F)Acc No.[id number]:09/24/2024 Patient: COLIN POLO Provider: EITAN Quiñonez :1970 A ge:54 Y S ex:Female Date:09/24/2024 Address:[address] [place], [place] [id number] Pcp:Shruthi Modi MD Subjective: * Chief Complaints: * R ates their depression as a 01/25Esketamine AdministrationMIPS diagnosis of HTN * HPI: E sketamine Administration: Esketamine administration T nina at the start of administration 1:25 PM, T nina of discharge 3:25 PM, P atient must be monitored for at least 2 hours Y es, W as the patient clinically ready for discharge prior to the required 2- hour: No, s taff Notes about today's Visit Patient will be picked up by her daughter. She said she has not eaten anything yet today.Patient has not had any issues since their last treatment.. Esketamine Nasal [place] Administration and Supervised monitoring Staff attending the patient Maryann Lee Supervising provider as in rendering provider : EITAN Palmer Is patient taking any of the following concomitant medication that may cause sedation of blood pressure changes Benzodiazepine No Non-benzodiazepine sedative-hypnotics: Yes Psychostimulant: No Monoamine oxidase inhibitors [MAOIs]: No Dose of Spravato: 84 Mg Lot number [id number] Date: 01/15/2027. G eneral Follow Up: 1 Review patient medical records, any recent test results, last visit summary, etc Y es1 Time spent 2 2 Greet patient and escort to the treatment room?Yes2 Time spent 1 3 Initial Obtained vital signs N o4 Prepare equipment and supplies Y es4 Time spent 2 5 Reviewed and documented history and medication Y es5 Time spent 3 6 Evaluate patient's clinical status [relevant history/physical assessment] and determine readiness/appropriateness of treatment Y es6 Time spent 2 7 Confirm orders and review plans with staff?Yes7 Time spent 1 8 Ensure appropriate positioning for administration, observe patient administration, ensure patient comfort and safety Y es8 Time spent 3 9 Obtained vital signs: Assess treatment tolerance N o10 Assess the patient response to treatment: Visually and verbally evaluate the patient; review treatment progress with staff [vital signs, patient tolerance, side effects, etc.] Y es10 Time spent 1 511 obtained vital signs: assess treatment tolerance N o12 At the completion of observation., Reviewed treatment course and assess the patient for clinical stability/discharge readiness Y es12 Time spent 2 13 Write a prescription or Reviewed RX for next session and submit to pharmacy N o14 Provide patient education/instruction/ Y es14 Time spent 3 15 Coordinate home-going [that is, discharged to escorted transportation] N o16 Complete medical record documentation Y es16 Time spent 1 017 cleaning of room/equipment by clinical staff N o18 complete medical record documentation; complete and submit rems patient monitoring form N oI attest to the total time spent Before, During and after ecounter was (in Minutes)?44. F unctional Status: The note is transcribed using speech recognition software. It is a reflection of a visit with the patient. It might have some inaccuracy, including medication names and transcribing errors, though efforts have been made to correct them. HPI: The patient rates their depression as a 6/10 and anxiety as an 8/10. They deny suicidal ideation, homicidal ideation, hallucinations, delusions, or paranoia. Sleep is reduced to 6 hours per night. The patient acknowledges poor dietary habits. No recent medication changes or new physical complaints are reported. * ROS: G eneral / Constitutional: Fatigue d enies. D izziness D enies. S edation?Denies. s pinning sensation D eneis. G astrointestinal: Nausea d enies. V omiting d enies. P sychiatric: Anxiety a dmits. A uditory / visual hallucinations d enies. D elusions d enies. D epressed mood a dmits. D ifficulty sleeping a dmits. L oss of appetite a dmits. S uicidal thoughts d enies. D issociations?Denies. E xcited D enies. P atient not eligible due to active diagnosis of hypertension: G 5358. * Medical History: * Surgical History: * Hospitalization/Major Diagno stic Procedure: * Medications: T akingSpravato (84 MG Dose) 28 MG/DEVICE Solution Therapy Pack INHALE 84MG PER NASAL ROUTE EVERY WEEK Ibsrela 50 MG Tablet 1 tablet immediately before meals Orally Twice a day Gemtesa 75 MG Tablet 1 tablet Orally Once a day Auvelity 45-105 MG Tablet Extended Release 1 tablet Oral twice a day Eliquis 5 MG Tablet 1 tablet Orally twice a day Estradiol 0.1 MG/GM Cream Vaginal aMILoride HCl 5 MG Tablet Oral Fluticasone-Salmeterol 250-50 MCG/ACT Aerosol Powder Breath Activated INHALE 1 PUFF INTO THE LUNGS TWICE DAILY Inhalation metFORMIN HCl ER 500 MG Tablet Extended Release 24 Hour TAKE 2 TABLETS BY MOUTH TWICE DAILY WITH MEALS Oral Emgality 120 MG/ML Solution Auto-injector ADMINISTER 1 ML UNDER THE SKIN EVERY 30 DAYS Subcutaneous Ozempic (0.25 or 0.5 MG/DOSE) 2 MG/3ML Solution Pen-injector INJECT 0.5 MG UNDER THE SKIN ONCE A WEEK DIRECTED Subcutaneous cloNIDine HCl 0.1 MG Tablet Oral Propranolol HCl ER 120 MG Capsule Extended Release 24 Hour Oral Rosuvastatin Calcium 10 MG Tablet Oral Losartan Potassium 100 MG Tablet Oral Meloxicam 15 MG Tablet TAKE 1 TABLET BY MOUTH DAILY Oral Baclofen 10 MG Tablet TAKE 1 TABLET BY MOUTH THREE TIMES DAILY NEEDED Oral amLODIPine Besylate 10 MG Tablet Oral HYDROcodone- Acetaminophen 5-325 MG Tablet Oral Zolpidem Tartrate 10 MG Tablet 1 tablet at bedtime as needed Oral Once a day As neededQelbree 200 MG Capsule Extended Release 24 Hour 3 capsules Oral Once a day , Notes to Pharmacist: *Reorder from [employer] for eRx and Interaction Alerts*ARIPiprazole 20 MG Tablet 1 tablet Oral Once a day Esomeprazole Magnesium 40 MG Capsule Delayed Release TAKE 1 CAPSULE BY MOUTH EVERY DAY Oral Medication List reviewed and reconciled with the patientTaking Spravato (84 MG Dose) 28 MG/DEVICE Solution Therapy Pack INHALE 84MG PER NASAL ROUTE EVERY WEEK Taking Ibsrela 50 MG Tablet 1 tablet immediately before meals Orally Twice a day Taking Gemtesa 75 MG Tablet 1 tablet Orally Once a day Taking Auvelity 45-105 MG Tablet Extended Release 1 tablet Oral twice a day Taking Eliquis 5 MG Tablet 1 tablet Orally twice a day Taking Estradiol 0.1 MG/GM Cream Vaginal Taking aMILoride HCl 5 MG Tablet Oral Taking Fluticasone-Salmeterol 250-50 MCG/ACT Aerosol Powder Breath Activated INHALE 1 PUFF INTO THE LUNGS TWICE DAILY Inhalation Taking metFORMIN HCl ER 500 MG Tablet Extended Release 24 Hour TAKE 2 TABLETS BY MOUTH TWICE DAILY WITH MEALS Oral Taking Emgality 120 MG/ML Solution Auto-injector ADMINISTER 1 ML UNDER THE SKIN EVERY 30 DAYS Subcutaneous Taking Ozempic (0.25 or 0.5 MG/DOSE) 2 MG/3ML Solution Pen-injector INJECT 0.5 MG UNDER THE SKIN ONCE A WEEK DIRECTED Subcutaneous Taking cloNIDine HCl 0.1 MG Tablet Oral Taking Propranolol HCl ER 120 MG Capsule Extended Release 24 Hour Oral Taking Rosuvastatin Calcium 10 MG Tablet Oral Taking Losartan Potassium 100 MG Tablet Oral Taking Meloxicam 15 MG Tablet TAKE 1 TABLET BY MOUTH DAILY Oral Taking Baclofen 10 MG Tablet TAKE 1 TABLET BY MOUTH THREE TIMES DAILY NEEDED Oral Taking amLODIPine Besylate 10 MG Tablet Oral Taking HYDROcodone-Acetaminophen 5-325 MG Tablet Oral Taking Zolpidem Tartrate 10 MG Tablet 1 tablet at bedtime as needed Oral Once a day As neededTaking Qelbree 200 MG Capsule Extended Release 24 Hour 3 capsules Oral Once a day , Notes to Pharmacist: *Reorder from [employer] for eRx and Interaction Alerts*Taking ARIPiprazole 20 MG Tablet 1 tablet Oral Once a day Taking Esomeprazole Magnesium 40 MG Capsule Delayed Release TAKE 1 CAPSULE BY MOUTH EVERY DAY Oral Medication List reviewed and reconciled with the patient * Allergies: N SAIDS (NON-STEROIDAL ANTI-INFLAMMATORY DRUG): Allergy - Onset Date 12/12/2023.H.E.45: Allergy - Onset Date 12/12/2023TORADOL: Allergy - Onset Date 12/12/2023SULFA (SULFONAMIDE ANTIBIOTICS): Allergy - Onset Date 12/12/2023Haldol: Allergy - Onset Date 12/12/2023Imitrex: Allergy - Onset Date 12/12/2023eglan: Allergy - Onset Date 12/12/2023ompazine: Allergy - Onset Date 12/12/2023no[Allergies Verified] Objective: * Vitals: B P: 136/89 mm Hg,138/87 mm Hg,140/89mm Hg, HR: 66 /min,70 /min,67/min, Oxygen sat %:89%, Ht: 66.50 in, Ht-cm: 168.91 cm. * Examination: G eneral Examination: Psych: a lert and oriented x 3, cognitive function intact, cooperative with exam, maintains good eye contact, with good judgement and insight, normal affect / mood, with no auditory or visual hallucinations, speech is clear and coherent, thought process is logical and goal directed without suidical ideation or delusions. M ental Status Examination: Patient rates depression severity at 6/10 and anxiety severity at 8/10. Denies experiencing suicidal ideation. Denies experiencing homicidal ideation. Denies experiencing hallucinations, delusions, or paranoia. Reports sleeping approximately six hours per night. Reports having a poor appetite. Vital Signs: see note. Physical Examination: No new physical complaints reported. Medication: No new medications or changes in medication reported. Assessment: * Assessment: 1. M ajor depressive disorder, recurrent severe without psychotic features - F33.2 (Primary)? 2. B enign essential HTN - I10 Plan: * Treatment: 2. O thers Clinical Notes: 1. Depression - Patient rates her depression as 6/10. - Plan: a. Continue current antidepressant medication. b. Encourage regular physical activity and healthy sleep schedule. 2. Anxiety - Patient rates her anxiety as 8/10. - Plan: a. Consider initiating anxiolytic medication or adjusting current medication regimen. b. Encourage relaxation techniques like deep breathing exercises and mindfulness meditation. c. Refer for cognitive-behavioral therapy (CBT) to address anxiety symptoms. 3. Sleep - Patient reports getting 6 hours of sleep per night. - Plan: a. Encourage consistent sleep schedule and good sleep hygiene. b. Assess need for sleep aids or medication adjustments at next follow-up if issues persist. 4. Nutrition - Patient acknowledges need to improve eating habits. - Plan: a. Provide educational materials on healthy eating and meal planning. b. Encourage food intake tracking and gradual diet improvements. c. Consider referral to extension work director if concerns persist. 5. Medication Management - Patient reports no new medications or changes to current regimen. - Plan: a. Continue monitoring response to current medications. b. Reassess medication effectiveness and potential side effects at next follow-up. 6. Physical Complaints - Patient did not report any new physical complaints. - Plan: a. Encourage prompt reporting of new or worsening physical symptoms. b. Continue monitoring overall health and well-being during follow-ups. 7. Mental Health Safety - Patient reports no thoughts of suicide, self-harm, hurting others, and no hallucinations, delusions, or paranoia. - Plan: a. Continue monitoring mental health status and ensure patient safety. b. Reassess mental health safety at each follow-up appointment. * Therapeutic Injections: Spravato 84 mg : 84 mg (Route: Nasal) given by EITAN Palmer (Major depressive disorder, recurrent severe without psychotic features) * Procedure Codes: 9 9417 PROLONGED OFFICE OR OTHER OUTPATIENT EVALUATION AND MANAGEMENT SERVICE(S) (BEYOND THE TOTAL TIME OF THE PRIMARY PROCEDURE WHICH HAS BEEN SELECTED USING TOTAL TIME), REQUIRING TOTAL TIME WITH OR WITHOUT DIRECT PATIENT CONTACT BEYOND THE USUAL SERVICE, ON T, Units: 4.00 G9744 Pt not hema d/t act dig htn * Preventive Medicine: Counseling: B Juan Management: Eden ANDREWS RECOMMENDATION: H ypertension education, R EFERRAL TO ALTERNATIVE / PRIMARY CARE PROVIDER: Natalie ellison to general medical service,?DIETARY RECOMMENDATIONS: D iet education. * Follow Up: @ 9:00 AM (Reason: w/ Nicholas) * Billing Information: * Visit Code: 29715 OFFICE OUTPATIENT VISIT 40 MINUTES COMPREHENSIVE HISTORY AND EXAM/HIGH MEDICAL DECISION MAKING. * Procedure Codes: 42246 PROLONGED OFFICE OR OTHER OUTPATIENT EVALUATION AND MANAGEMENT SERVICE(S) (BEYOND THE TOTAL TIME OF THE PRIMARY PROCEDURE WHICH HAS BEEN SELECTED USING TOTAL TIME), REQUIRING TOTAL TIME WITH OR WITHOUT DIRECT PATIENT CONTACT BEYOND THE USUAL SERVICE, ON T. Units: 4.00. G9744 Pt not hema d/t act dig htn. * OR STRATEGY MANAGER Sign off status: Completed true * Provider: EITAN Quiñonez Date: 0 09/24/2024 Generated for Jessica weiss/Bairon/Kaleb on: 0 09/30/2024 11:41 AM SENIOR STRATEGY MANAGER History and Physical Notes * HPI (History of Present Illness) Category Sub-Category Detail Notes Category Not es Esketamine Administration Esketamine administration Time at the start of administratio n: 1:25 PM Esketamine Nasal [place] Administration and Supervised monitoring Staff attending the patient Maryann Lee Supervising provider as in rendering provider : EITAN Palmer Is patient taking any of the following concomitant medication that may cause sedation of blood pressure changes Benzodiazepine No Non-benzodiazepine sedative-hypnotics: Yes Psychostimulant: No Monoamine oxidase inhibitors [MAOIs]: No Dose of Spravato: 84 Mg Lot number [id number] Date: 01/15/2027 Time of discharge: 3:25 PM Patient must be monitored fo r at least 2 hours: Yes Was the patient clinically r [place] for discharge prior to the required 2-hour:: No staff Notes about today's Visit: Patient will be picked up by her daughter. She said she has not eaten anything yet today. Patient has not had any issues since their last treatment. Examination Category Sub-Category Detail Notes Category Not es General Examination Psych: alert and or iented x 3, cognitive function intact, cooperative with exam, maintains good eye contact, with good judgement and insight, normal affect / mood, with no auditory or visual hallucinations, speech is clear and coherent, thought process is logical and goal directed without suidical ideation or delusions Mental Status Examination: Patient rates depression severity at 6/10 and anxiety severity at 8/10. Denies experiencing suicidal ideation. Denies experiencing homicidal ideation. Denies experiencing hallucinations, delusions, or paranoia. Reports sleeping approximately six hours per night. Reports having a poor appetite. Vital Signs: see note. Physical Examination: No new physical complaints reported. Medication: No new medications or changes in medication reported.
--- OUTSIDE RECORDS SUMMARY | 2024-09-30 15:41 | XMS_ITS | Encounter Summary ---
Author Organization [facility] Facility Care Team Providers Care Block Machine Operator Name Role Phone Paddy Riley MD, Fabrizio Unavailable [phone] Chris Mahmood DO Primary Care Provider + No, Physician Primary Care Provider [phone] Shruthi Modi MD Primary Care Provider Dmitry Laguna MD Unavailable [phone] Encounter Details Date Type Department Care Team (Latest Contact Info) Description 12/09/2016 Orders Only [facility] ProviderRay MD [address] [place] [id number] Social History Tobacco Use Types Packs/Day Years Used Date Smoking Tobacco: Never Assessed Comments Unknown Sex and Gender Information Value Date Recorded Sex Assigned at Not on file Legal Sex Female 6:55 AM HISTOLOGIST Gender Identity Female 07/23/2020 8:34 PM HISTOLOGIST Sexual Orientation Straight 07/23/2020 8: 34 PM HISTOLOGIST documented as of this encounter Plan of [...] documented as of this encounter Care Teams Block Machine Operator Relationship Specialty Start Date End Date Chris Mahmood DO [address] [place] [id number] PCP - General Family Medicine 07/05/21 10/04/21 No, Physician PCP - General 10/15/21 10/23/21 Shruthi Modi MD [address] [place] [address] PCP - General Family Practice 10/24/21 Fabrizio Thomason Jr., MD Medical Oncologist/Hematologis t Medical Oncology 03/02/21 Dmitry Laguna MD [address] [facility] [place] [address] Referring Physician Endocrinology Diabetes & Metabolism 05/21/23 documented as of this encounter
--- OUTSIDE RECORDS SUMMARY | 2024-09-30 15:41 | XMS_ITS | Clinical Summary ---
Author Organization [facility] Address [address] [place] [address] Phone Care Team Providers Care Elevated Guard Name Role Phone Shruthi Modi MD Primary [...] Completed 08/22/2020, 05/19, 05/17/2020 Insurance [employer] PPO [facility] Care Teams Elevated Guard Relationship Specialty Start Date End Date Shruthi Modi MD [address] [place] [id number] PCP - General Family Practice 04/11/22
--- OUTSIDE RECORDS SUMMARY | 2024-09-30 15:41 | XMS_ITS | Encounter Summary ---
Author Organization [facility] Facility Care Team Providers Care Tipple Mechanic Name Role Phone Paddy Riley MD, Fabrizio Unavailable [phone] Chris Mahmood DO Primary Care Provider + No, Physician Primary Care Provider [phone] Shruthi Modi MD Primary Care Provider Dmitry Laguna MD Unavailable [phone] Encounter Details Date Type Department Care Team (Latest Contact Info) Description 01/01/2017 Orders Only [facility] CLINCON[facility] ProviderRay MD [address] [place] [id number] Social History Tobacco Use Types Packs/Day Years Used Date Smoking Tobacco: Never Assessed Comments Unknown Sex and Gender Information Value Date Recorded Sex Assigned at Not on file Legal Sex Female 6:55 AM THREAD SINGER Gender Identity Female 07/23/2020 8:34 PM THREAD SINGER Sexual Orientation Straight 07/23/2020 8: 34 PM THREAD SINGER documented as of this encounter Plan of [...] documented as of this encounter Care Teams Tipple Mechanic Relationship Specialty Start Date End Date Chris Mahmood DO [address] [place] [id number] PCP - General Family Medicine 07/05/21 10/04/21 No, Physician PCP - General 10/15/21 10/23/21 Shruthi Modi MD [address] [facility] [place] [address] PCP - General Family Practice 10/24/21 Fabrizio Thomason Jr., MD Medical Oncologist/Hematologis t Medical Oncology 03/02/21 Dmitry Laguna MD [address] [facility] [place] [address] Referring Physician Endocrinology Diabetes & Metabolism 05/21/23 documented as of this encounter
--- OUTSIDE RECORDS SUMMARY | 2024-09-30 15:41 | XMS_ITS | Encounter Summary ---
Author Organization [facility] Facility Care Team Providers Care Industrial Cleaning Technician Name Role Phone Paddy Riley MD, Fabrizio Unavailable [phone] Chris Mahmood DO Primary Care Provider + No, Physician Primary Care Provider [phone] Shruthi Modi MD Primary Care Provider Dmitry Laguna MD Unavailable [phone] Encounter Details Date Type Department Care Team (Latest Contact Info) Description 11/25/2016 Orders Only [facility] CLINCONV ProviderRay MD [address] [place] [id number] Social History Tobacco Use Types Packs/Day Years Used Date Smoking Tobacco: Never Assessed Comments Unknown Sex and Gender Information Value Date Recorded Sex Assigned at Not on file Legal Sex Female 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 Gender Identity Female 07/23/2020 8:34 PM ROOF BOLTER OPERATOR Sexual Orientation Straight 07/23/2020 8: 34 PM ROOF BOLTER OPERATOR documented as of this encounter Plan of [...] documented as of this encounter Care Teams Industrial Cleaning Technician Relationship Specialty Start Date End Date Chris Mahmood DO [address] [place] [id number] PCP - General Family Medicine 07/05/21 10/04/21 No, Physician PCP - General 10/15/21 10/23/21 Shruthi Modi MD [address] [place] [address] PCP - General Family Practice 10/24/21 Fabrizio Thomason Jr., MD Medical Oncologist/Hematologis t Medical Oncology 03/02/21 Dmitry Laguna MD [address] [facility] [place] [address] Referring Physician Endocrinology Diabetes & Metabolism 05/21/23 documented as of this encounter
--- OUTSIDE RECORDS SUMMARY | 2024-09-30 15:41 | XMS_ITS | Data Portability ---
Author Organization MD Leana bui, Main Office Address [address] [facility] [address] [place] [address] Care Team Providers Care Manager Nc Name Role Phone JUANA MARINA Primary Care Provider LAURIE ASTUDILLO Referring Provider Assessment No assessment recorded. Plan of Treatment Reminders Order Date Submit Date Provider Last Modified By Organization Details Last Modified Time Details Appointments None recorded. Lab None recorded. Referral None recorded. Procedures None recorded. Surgeries None recorded. Imaging None recorded. Medication Orders Percocet 10 mg-325 mg tablet 2018 019 [email or web address] [facility]41, [address] , [place], [place], [id number], 9 09:49:37 Percocet 10 mg-325 mg tablet 2018 019 [email or web address] [facility] #06783, [address] , [place], [place], [id number], 9 18:10:18 Ajovy Syringe 225 mg/1.5 mL subcutaneo us 2018 019 [email or web address] [facility] #21836, [address] , [place], [place], [id number], 9 18:10:17 Percocet 10 mg-325 mg tablet 2018 019 [email or web address] [facility] #74105, [address], [place], [place], [id number], 9 13:48:52 Ajovy Syringe 225 mg/1.5 mL subcutaneo 2018 019 [email or web address] [facility] #97323, [address], [place], [place], [id number], 9 13:48:52 Percocet 10 mg-325 mg tablet 2017 018 [email or web address] [facility] #03692, [address], [place], [place], [id number], 8 16:39:11 Fioricet 50 mg-300 mg-40 mg capsule 2017 018 [email or web address], [address], [place], [place], [id number], 8 16:58:20 topiramate 50 mg tablet 2017 018 [facility]FACE [email or web address], [address], [place], [place], [id number], 8 16:59:55 Ajovy Syringe 225 mg/1.5 mL [facility] 018 [facility], [address], [place], [place], [id number], 8 17:06:13 Patient TargetsNo targets recorded. Patient InstructionsNo instructions recorded. Reason for Referral None Reported. Problems Name Problem SNOMED Code Status Onset Date Resolution Date Notes Provider Name and Address Organization Details Recorded Time Rheumatoid arthritis 43876222 Active 2017 MD [facility] 8 16:41:28 Tobacco dependence syndrome 64228740 Active 2017 Shashank Alyssa null, MD - [facility] 8 16:45:54 Chronic pain syndrome 473502553 Active 2017 Shashank Shah null, MD - [facility] 8 17:35:16 Long-term current use of opiate analgesic drug 0446503655653 08 Active 2017 Shashank Shah null, MD - [facility] 8 17:35:41 Lumbar spondylosis 863698394 Active 2017 Shashank Shah null, MD - [facility] 8 17:36:26 Degeneratio n of lumbar interverteb ral disc 61103585 Active 2017 Shashank Shah null, MD - [facility] 8 17:36:37 Degeneratio n of cervical interverteb ral disc 36765407 Active 2017 Shashank Shah null, MD - [facility] 8 17:36:47 Bilateral sacroiliiti s 9188285375649 9102 Active 2017 Shashank Shah null, MD - [facility] 8 20:13:03 Chronic low back pain 650009438 Active 2017 Shashank Shah null, MD - [facility] 8 20:13:11 Migraine 88438387 Active 2017 Shashank Shah null, MD - [facility] 8 16:56:47 Cervical spondylosis 823720327 Active 2017 Shashank Shah null, MD - [facility] 8 08:40:40 Chronic neck pain 3793749517890 Active 2017 Shashank Shah null, MD - [facility] 8 08:40:54 Thoracic spondylosis 798605056 Active 2017 Shashank Shah null, MD - [facility] 8 08:41:05 Pain in thoracic spine 604082665 Active 2017 Shashank Shah null, MD - [facility] 8 08:41:13 Sacroiliac joint pain 257786460 Active 2018 Vincent Eubanks null, MD - [facility] 9 14:42:03 Problem Notes None recorded. Procedures Surgical History Date Name Laterality Status Provider Name and Address Organization Details Recorded Time 02/10/20 19 [facility] THORACIC MEDIAL BRANCH NERVE BLOCK completed SHASHANK SHAH MD - [facility] 02/09/2019 11:13:14 09/15/19 19 [facility] CERVICAL RADIOFREQUENCY ABLATION (RFA) completed Shashank Shah MD - [facility] 09/15/2018 17:22:56 07/07/20 18 [facility] CERVICAL MEDIAL BRANCH NERVE BLOCK completed Shashank Shah MD - [facility] 07/08/2018 08:40:17 05/29/20 18 [facility] LUMBAR RADIOFREQUENCY ABLATION (RFA) completed Shashank Shah MD - [facility] 05/29/2018 15:33:13 05/15/20 18 [facility] LUMBAR RADIOFREQUENCY ABLATION (RFA) completed Shashank Shah MD - [facility] 05/15/2018 16:41:58 08/18/19 02 Hysterectomy completed Jennifer Sutton MD - [facility] 04/24/2018 15:36:34 Adhesiolysis tube ovary completed Jennifer Sutton MD - [facility] 04/24/2018 16:23:56 General Surgery completed Sergo Khalil MD - [facility] 04/26/2019 09:29:53 Imaging Results None recorded. Procedure Notes None recorded. Medical Equipment None Reported. Allergies Allergen ID Allergen Name Allergen Category Reaction Reaction Severity Criticality Documentation Date Start Date Code Code System Note Provider Name and Address Organization Details Recorded Time 30066 Substance with sulfonami de structure and antibacte rial mechanism of action (substanc e) medicatio n anaphylax is severe Not available 04/24/2018 66047 8003 SNOMED Jennifer carrion MD - [facility] 8 15:20:30 30926 Imitrex medicatio n Not available Not available Not available 04/24/2018 80434 3 RxNorm Jennifer carrion MD - [facility] 8 15:21:19 77146 Reglan medicatio n Not available Not available Not available 04/24/2018 9230 RxNorm Jennifer carrion MD - [facility] 8 15:26:12 77700 Inapsine medicatio n Not available Not available Not available 04/24/201858061 3 RxNorm Jennifer rowe MD Leana carrion [facility] 8 15:26:26 76427 Compazine medicatio n Not available Not available Not available 05/29/201855068 6 RxNorm Ivan Weaver MD [facility] 8 14:02:27 18071 Haldol medicatio n Not available Not available Not available 05/29/2018 22634 9 RxNorm Ivan Weaver MD [facility] 8 14:02:50 Medications Name Sig Start Date Stop Date Status Note LastModified by Organization Details LastModified Time latanoprost 0.005 % eye drops INSTILL 1 DROP INTO AFFECTED EYE(S) BY OPHTHALMI C ROUTE ONCE DAILY INTHE EVENING active Not Available Not Available No t Available Adderall 30 mg tablet Take 1 tablet every day by oral route. 07/07 completed Not Available Not Available Not Available Percocet 7.5 mg-325 mg tablet Take 1 tablet every 6 hours by oral route. 07/07 completed Not Available Not Available Not Available clonidine HCl 0.1 mg tablet 02/04 completed Not Available Not Available Not Available gabapentin 600 mg tablet 07/07 completed Not Available Not Available Not Available prednisone 20 mg tablet 02/04 completed Not Available Not Available Not Available metronidazo le 500 mg tablet active Not Available Not Available Not Available minoxidil 2.5 mg tablet active Not Available Not Available Not Available butalbital- acetaminoph en-caffeine 50 mg-325 mg-40 mg tablet active Not Available Not Available Not Available Percocet 10 mg-325 mg tablet 2018 active Not Available Not Available Not Avai lable gabapentin 800 mg tablet 07/07 completed Not Available Not Available Not Available dicyclomine 20 mg tablet 07/07 completed Not Available Not Available Not Available amitriptyli ne 10 mg tablet 02/04 completed Not Available Not Available Not Available amlodipine 10 mg tablet active Not Available Not Available Not Available benzonatate 100 mg capsule 07/07 completed Not Available Not Available Not Available esomeprazol e magnesium 40 mg capsule,del ayed release active Not Available Not Available Not Available gabapentin 300 mg capsule Take 2 caps TID x 1 week, then 2 caps BID x 1 weeks, then 1 cap BID x 1 week, then stop 07/07 completed Not Available Not Available Not Available lisinopril 5 mg tablet active Not Available Not Available Not Available furosemide 20 mg tablet Take 1 tablet every day by oral route. active Not Available Not Available No t Available propranolol ER 120 mg capsule,24 hr,extended release active Not Available Not Available Not Available zolpidem 10 mg tablet active Not Available Not Available No t Available dextroamphe tamine-amph etamine ER 30 mg 24hr capsule,ext end release active Not Available Not Available Not Available hydrocortis one 2.5 % topical ointment active Not Available Not Available Not Available doxycycline hyclate 100 mg tablet active Not Available Not Available No t Available Vitamin D 50,000 unit capsule Take 1 capsule every week by oral route. active Not Available Not Available No t Available escitalopra m 10 mg tablet active Not Available Not Available Not Available escitalopra m 20 mg tablet active Not Available Not Available Not Available aripiprazol e 15 mg tablet Take 1 tablet every day by oral route. active Not Available Not Available No t Available rosuvastati n 10 mg tablet active Not Available Not Available Not Available topiramate 50 mg tablet 1 PO BID 2017 active Not Available Not Available Not Avai lable gabapentin 07/07 completed Not Available Not Available Not Available Topamax active Not Available Not Avail able Not Available Nexium active Not Available Not Availa ble Not Available Lotrel 10 mg-40 mg capsule Take 1 capsule every day by oral route. 02/04 completed Not Available Not Available Not Available fenofibrate nanocrystal lized 145 mg tablet active Not Available Not Available No t Available Voltaren 1 % topical gel APPLY 2 GRAM TO THE AFFECTED AREA(S) BY TOPICAL ROUTE 4 TIMES PER DAY 2017 active Not Available Not Available Not Avai lable Fioricet 50 mg-300 mg-40 mg capsule Take one tablet BID as needed for migraine 2017 active Not Available Not Available Not Avai lable Ajovy Syringe 225 mg/1.5 mL subcutaneou s INJECT 1.5ML SUBCUTANE OUS EVERY MONTH active Not Available Not Available No t Available Imvexxy Maintenance Pack 10 mcg vaginal insert active Not Available Not Available Not Available Vitals Date Recorded Respiratory rate Body temperature Heart rate Heart rate Systolic blood pressure Diastolic blood pressure Provider Name and Address Organization Details Last Updated DateTime 8 16 /min 98.1 [degF] 69 /min 69 /min 151 mm[Hg] 93 mm[Hg] Ivan Weaver MD [facility] 8 15:39:23 Date Recorded Respiratory rate Body temperature Heart rate Heart rate Systolic blood pressure Diastolic blood pressure Provider Name and Address Organization Details Last Updated DateTime 9 16 /min 98.5 [degF] 60 /min 60 /min 152 mm[Hg] 97 mm[Hg] Ivan Weaver MD [facility] 9 12:38:05 Date Recorded Body weight Heart rate Systolic blood pressure Diastolic blood pressure Provider Name and Address Organization Details Last Updated DateTime 02/04/2019 45165.29 g 71 /min 142 mm[Hg] 88 mm[Hg] Jennifer Dueñas [facility] 02/04/2019 16:57:12 Date Recorded Respiratory rate Body temperature Heart rate Heart rate Systolic blood pressure Diastolic blood pressure Provider Name and Address Organization Details Last Updated DateTime 9 16 /min 98.4 [degF] 71 /min 71 /min 144 mm[Hg] 87 mm[Hg] Ivan Weaver MD [facility] 9 10:48:16 Date Recorded Respiratory rate Body weight Body height Body mass index (BMI) Heart rate Systolic blood pressure Diastolic blood pressure Provider Name and Address Organization Details Last Updated DateTime 9 14 /min 31759.6 5 g 167.64 cm 26 kg/m2 59 /min 153 mm[Hg] 94 mm[Hg] Sergo Dueñas [facility] 9 09:30:08 Social History Question Answer Notes LastModified by Organizat ion Details LastModified Time Tobacco Smoking Status Current Every Day Smoker MD Leana Mosley [email or web address] 04/24/2018 15:43:01 What Is Your Level Of Alcohol Consumption? Occasional [email or web address] Information not available 04/24/2018 Auto Related Injury? No [email or web address] Information not available 04/24/2018 Are You Currently Employed? Yes [email or web address] Information not available 04/24/2018 Education 2 Year College [email or web address] Informa tion not available 02/04/2019 Live Alone Or With Others? With Others [email or web address] Information not available 04/24/2018 Pain Level. 5 [email or web address] Informatio n not available 02/04/2019 What Was The Date Of Your Most Recent Tobacco Screening? 04/24/2018 Information not available 03/11/2019 How Much Tobacco Do You Smoke? 1 PPD [email or web address] Information not available 02/04/2019 General Stress Level Low [email or web address] Information not available 04/24/2018 How Many Years Have You Smoked Tobacco? 4 [email or web address] Information not available 02/04/2019 Work Related Injury? No [email or web address] Information not available 04/24/2018 Sex: Unknown Functional Status None recorded. Mental Status None recorded. Family History Relationship Description Onset Age of this Age Resolved Age Notes LastModified by Organization Details LastModified Time Father ILLNES S (HYPER TENSIO N) CAUSE OF (KIDNE Y CANCER ) [email or web address] Not available 05/03/2019 14:46:44 Father Hypertensive disorder [email or web address] Not available 16:57:46 Father Kidney disease [email or web address] Not available 16:57:46 Mother Alive [email or web address] Not availab le 05/03/2019 14:46:44 Mother Diabetes mellitus [email or web address] Not available 16:57:46 Mother Heart disease Not available 16:57:46 Mother Hypertensive disorder [email or web address] Not available 16:57:46 Sister Hypertensive disorder [email or web address] Not available 16:57:46 Notes:ILLNESS (DIABETES, HYP ERTENSION, AND STROKE. Medical History Condition Response Diabetes N Anxiety Disorder Y Thyroid Disease N Respiratory Hx N Arthritis N Blood Disorder N AIDS/HIV N Head Trauma/Injury N Cancer N Depression Y Heart Attack N Cardiac Hx N Substance Abuse N Back Injury N Liver Disease N Seizure or Epilespsy N Fibromyalgia N Headaches N Hypertension Y Osteoporosis N Kidney Disease N Gynecological HistoryNo gynecological history recorded. Obstetrics History GPAL:G 0 P 0 0 0 0 Past Encounters Encounter ID Performer Location Encounter Start Date Encounter Closed Date Diagnosis/Indication Diagnosis SNOMED-CT Code Diagnosis ICD10 Code Diagnosis Note [id number] Shashank FERNANDEZ [address] [place] [address] 04/24/2018 14:46:21 04/24/2018 17:44:43 Chronic pain syndrome 618392539 G89.4 Tobacco de pendence syndrome 77123059 F17.200 Rheumatoid arthritis 698 66670 M06.9 Long-term current use of opiate analgesic drug 7943796457 58994 Z79.891 Lumbar spondylosis 84031 0009 M47.816 Degenerati on of lumbar intervertebral disc 27128486 M51.36 Degenerati on of cervical intervertebral disc 30296781 M50.30 Bilateral sacroiliitis 7178703025 1450719 M46.1 Chronic low back pain 27 6989986 M54.5 [id number] Shashank FERNANDEZ [address] [place] [address] 05/15/2018 12:31:37 05/15/2018 13:59:33 Chronic low back pain 157673610 M54.5 Chronic pain syndrome 37 9591561 G89.4 Lumbar spondylosis 50268 0009 M47.816 [id number] Shashank FERNANDEZ [address] [place] [address] 05/29/2018 13:34:31 05/29/2018 14:56:16 Chronic low back pain 398321821 M54.5 Lumbar spondylosis 09215 0009 M47.816 [id number] Vincent FERNANDEZ [address] [place] [address] 06/02/2018 14:08:33 06/02/2018 15:08:42 Chronic low back pain 273168512 M54.5 Bilateral sacroiliitis 7494210265 1082414 M46.1 Degenerati on of cervical intervertebral disc 81798792 M50.30 Degenerati on of lumbar intervertebral disc 37601384 M51.36 Lumbar spondylosis 69351 0009 M47.816 Long-term current use of opiate analgesic drug 4956568458 29640 Z79.891 Chronic pain syndrome 37 3631741 G89.4 Tobacco de pendence syndrome 30052883 F17.200 Rheumatoid arthritis 698 85451 M06.9 Cervical spondylosis 387 618050 M47.812 Thoracic spondylosis 387 285459 M47.814 Chronic neck pain 437932 1680 107 M54.2 [id number] Shashank Shah [place] [address] [address] [place] [address] 07/07/2018 15:24:08 07/07/2018 17:12:46 Degeneration of cervical intervertebral disc 04330917 M50.30 Chronic pain syndrome 37 4287615 G89.4 Chronic low back pain 27 3707233 M54.5 Bilateral sacroiliitis 8961771449 4891588 M46.1 Degenerati on of lumbar intervertebral disc 43025332 M51.36 Lumbar spondylosis 37279 0009 M47.816 Long-term current use of opiate analgesic drug 2560174324 04527 Z79.891 Tobacco de pendence syndrome 77130295 F17.200 Rheumatoid arthritis 698 89638 M06.9 Migraine 41050509 G43.90 9 Pain in th oracic spine 472071676 M54.6 Thoracic spondylosis 387 405938 M47.814 Chronic neck pain 417859 4412 107 M54.2 Cervical spondylosis 387 569182 M47.812 [id number] Shashank Shah [place] [address] [address] [facility] [address] [place] [address] 09/15/2018 11:55:16 09/16/2018 09:52:34 Cervical spondylosis 894916592 M47.812 Chronic neck pain 914647 8429 107 M54.2 Thoracic spondylosis 387 468531 M47.814 Pain in th oracic spine 131457587 M54.6 Migraine 36832745 G43.01 9 Chronic pain syndrome 37 5359592 G89.4 [id number] [facility] [address] [place] [address] 02/04/2019 16:37:41 02/04/2019 18:15:40 Degeneration of cervical intervertebral disc 95198541 M50.30 Chronic pain syndrome 37 0893252 G89.4 Chronic low back pain 27 9261247 M54.5 Bilateral sacroiliitis 3540096358 5194722 M46.1 Degenerati on of lumbar intervertebral disc 41829323 M51.36 Lumbar spondylosis 38956 0009 M47.816 Long-term current use of opiate analgesic drug 1392295395 73400 Z79.891 Tobacco de pendence syndrome 62445080 F17.200 Rheumatoid arthritis 698 83180 M06.9 Migraine 15046970 G43.11 9 Pain in th oracic spine 734160751 M54.6 Thoracic spondylosis 387 856919 M47.814 Chronic neck pain 102033 2045 107 M54.2 Cervical spondylosis 387 345916 M47.812 [id number] SH[facility]ANK SHAH [facility] [place] [address] [place] [address] 02/09/2019 10:14:33 02/09/2019 12:38:35 Pain in thoracic spine 419106413 M54.6 Thoracic spondylosis 387 773315 M47.814 [id number] Vincent Eubanks [facility] [address] [place] [address] 04/26/2019 09:05:02 04/26/2019 09:57:15 Degeneration of cervical intervertebral disc 77132557 M50.30 Chronic pain syndrome 37 4275316 G89.4 Chronic low back pain 27 4625747 M54.5 Bilateral sacroiliitis 3127338373 9954080 M46.1 Degenerati on of lumbar intervertebral disc 36450156 M51.36 Lumbar spondylosis 33123 0009 M47.816 Long-term current use of opiate analgesic drug 7804266177 68078 Z79.891 Tobacco de pendence syndrome 28901910 F17.200 Rheumatoid arthritis 698 87302 M06.9 Migraine 69798683 G43.11 9 Pain in th oracic spine 736184553 M54.6 Thoracic spondylosis 387 260421 M47.814 Chronic neck pain 141740 9662 107 M54.2 Cervical spondylosis 387 810703 M47.812 Sacroiliac joint pain 20 1594422 M53.3 Health Concerns Section Related Observation LastModified by Organization Detai ls LastModified Time None Recorded Concern Status LastModified by Organization Details LastModified Time None Recorded Advance Directives Directive None Recorded Payers Encounter Date Sequence Insurance Name Policy Number Policy Avila Covered Member ID Avila Member ID Guarantor Name 07/07/2018 1 [employer] (PPO) [id number] Draryn Barroso [id number] Kerry Barroso 07/07/2018 2 WPS - FOR LIFE (SECONDARY TO MEDICARE) Darryn Barroso [id number] Kerry Barroso 09/15/2018 1 [employer] (PPO) [id number] Darryn Barroso [id number] Kerry Barroso 09/15/2018 2 [employer]PS - FOR LIFE (SECONDARY TO MEDICARE) Darryn Barroso [id number] Kerry Barroso 02/04/2019 2 [employer]PS - FOR LIFE (SECONDARY TO MEDICARE) Darryn Barroso [id number] Kerry Barroso 02/04/2019 1 [employer] (PPO) [id number] Darryn Barroso [id number] Kerry Barroso 02/09/2019 2 [employer]PS - FOR LIFE (SECONDARY TO MEDICARE) Darryn Barroso [id number] Kerry Barroso 02/09/2019 1 [employer] (PPO) [id number] Darryn Barroso [id number] Kerry Barroso 04/26/2019 1 [employer] (PPO) [id number] Darryn Barroso [id number] Kerry Barroso 04/26/2019 2 [place]AST - DOS PRIOR TO 2024 - [employer] () Kerry Valdezer [id number] Kerry Dharmesh Notes Date Note Type Note Provider Name and Address Organization Details Recorded Time 07/07/20 18 text/htm alondra Payne is a pleasant 48y/o who presents to the clinic complaining of low back, thoracic, and neck pain. Of these pains, the low back and neck pain is the worst. It is described as gnawing and dull. She is also complaining of increased and severe migraine attacks. She does get photophobia, and phonophobia with severe nausea from her headaches. She also gets visual auras. She states she had approximately 3-6 headache days per week. Each episode will last about 3 days. During this time she is bedbound with severe pain. This pain is getting worse over time. This pain is constant On the numerical rating scale, the patient s pain is reported as: 6/10 = Current pain 6/10 = Average pain 8/10 = Worst pain Radiating:none Worse at time of day: morning, night Worse with: lying flat Better with: injections, medication Notes from last visit were reviewed and pending concerns were addressed this visit. PAST MEDICAL/FAMILY/SOCIAL HISTORY: Since the patient s last visit, there has been no changes in medications, no health changes, no new allergies, no changes in living circumstances, no new family health problems. No changes in smoking, drinking, or illicit drug use. Since the last visit, there has been no new weakness, bowel, or bladder dysfunction. PHYSICAL THERAPY: Patient did physical therapy in 2014 for her legs and knees. Physical therapy helped. She has not done PT for her low back. [facility]ita [facility]. She is encouraged to continue home exercises as learned in physical therapy. IMAGING/TESTS: Last drug screen as performed on 04/24/18 consistent. MRI of lumbar spine dated 03/13/18 and MRI of cervical spine dated 10/14/17 have both been reviewed. DME: She has a LSO at home, this doesn't help. PROCEDURES: Please see medial branch block procedure note today. Since the patient has had two positive and successful diagnostic C6 to T1 medial branch nerve blocks which each have given the patient greater than 50% relief but have since worn off, I would like to schedule the patient for a radiofrequency ablation of bilateral C6-T1 medial branches. Procedure was explained in detail to the patient. Patient was educated about the risks, benefits and alternatives of the procedure and was agreeable. I would also like to schedule a 2 week post procedure visit to evaluate the response to the procedure. She would like to do this in August when she returns to [place]. 05/29/18 - Left Lumbar RFA - 80% relief05/15/18 - Rt Lumbar RFA - 90%Lumbar facets 02/10/18 - 60% relief DANY - 01/27/18Lumbar facets 01/14/18 - 60% reliefCESI - 12/31/17C6-T1 Facets - 10/22/17 - 60-70% x 2 monthsThoracic RFA - mid 2016 NON-NARCOTICS: I would like to try Ajovy for migraine prophylaxis. This is a subcutaneous monthly injection. The procedure for injection was described to her and she would like to try it. She was also given a sample card to present to the pharmacy to reduce her cost. If this is ineffective, I recommend she consider Botox injections for migraine prophylaxis. Propranolol - Not effective for migrainesTopamax - Not helpingGabapentin - Not helpingFioricet - Helps occassionalySumatriptan - Hypertensive crisis, not effectiveMaxalt - Not effectiveDihydorergotomine - Hypertensive crisisNo oral NSAIDs due to history of stomach ulcer Continue topamax, continue fiorcet NARCOTICS:Patient has been taking opiate pain medication for pain relief. With this medication he/she is more functional and there is analgesic effect without any signs of addiction, abuse, or diversion. The patient also denies side effects from the medication. We have discussed with the patient at length the risks/benefits of narcotic pain medication. Benefits are pain relief. Risks include but are not limited to nausea, vomiting, constipation, mental status changes, drowsiness, sedation, decreased libido, respiratory depression, overdose and . We have discussed the possibility of addiction, withdrawal, tolerance, and physical dependence. The increased risk of using opioids with benzodiazepines, alcohol, and other THERAPY SITE COORDINATOR depressants was discussed. I advised the patient not to use alcohol and not to drive or use equipment if there is any drowsiness. We also have discussed the [facility] Opiate Contract at length. All questions were answered, the patient was agreeable and signed. [place] Opioid Start Talking form has been signed. Patient has received information about proper disposal of opiate medications and if applicable, a table summarizing the short and 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 card tender effects of exposure to opiates. Patient is aware that it is a felony to give the medication to anyone else. Patient has been given the handout Mistakes made by Chronic Pain Patients from [facility]. Urine drug screens are performed and monitored based on opiate risk level. Opiate Risk Level: Moderate MAPS report was reviewed this visit which shows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
--- OUTSIDE RECORDS SUMMARY | 2024-09-30 15:41 | XMS_ITS | Encounter Summary ---
Author Organization [facility] Care Team Providers Care Regional Account Executive Name Role Phone Paddy Riley MD, Fabrizio Unavailable [phone] Chris Mahmood DO Primary Care Provider + No, Physician Primary Care Provider [phone] Shruthi Modi MD Primary Care Provider Dmitry Laguna MD Unavailable [phone] Encounter Details Date Type Department Care Team (Latest Contact Info) Description 11/26/2016 Orders Only [facility] CLINCONV ProviderRay MD [address] [place] [id number] Social History Tobacco Use Types Packs/Day Years Used Date Smoking Tobacco: Never Assessed Comments Unknown Sex and Gender Information Value Date Recorded Sex Assigned at Not on file Legal Sex Female 6:55 AM MEDICAID BILLER Gender Identity Female 07/23/2020 8:34 PM MEDICAID BILLER Sexual Orientation Straight 07/23/2020 8: 34 PM MEDICAID BILLER documented as of this encounter Plan of [...] as of this encounter Care Teams Regional Account Executive Relationship Specialty Start Date End Date Chris Mahmood DO [address] [place] [id number] PCP - General Family Medicine 07/05/21 10/04/21 No, Physician PCP - General 10/15/21 10/23/21 Shruthi Modi MD [address] [facility] [address] PCP - General Family Practice 10/24/21 Fabrizio Thomason Jr., MD Medical Oncologist/Hematologis t Medical Oncology 03/02/21 Dmitry Laguna MD [address] [facility] [place] [address] Referring Physician Endocrinology Diabetes & Metabolism 05/21/23 documented as of this encounter
--- OUTSIDE RECORDS SUMMARY | 2024-09-30 15:41 | XMS_ITS | Patient Health Record ---
Author Organization [facility] [address] Address [address] [place] [address] Care Team Providers Care Commercial Lender Name Role Phone Ly FIGUEROA, Shruthi Primary Care Provider Unavailab Nicholas Barber Unavailable [phone] Sylvester Brown Unavailable [phone] Migration, Provider Unavailable Unavailable Laith Haji Unavailable [phone] Janis Garcia Unavailable [phone] Allergies Allergen (clinical drug ingredient) Drug/Non Drug [...] ctive Compazine Unknown Drug Allergy 12/12/2023 Active Results Component Value Reference Range Notes UDT Reviewed date:05/25/2024 09:54:41 AM Interpretation: Performing Lab: Notes/Report: THC POS 0 - 50 ng/ml Cocaine N 0 - 300 ng/ml Amphetamine N 0 - 1000 ng/ml Buprenorphine (BUP) N 0 - 10 ng/ml Secobarbital (Bar) N 0 - 300 ng/ml Oxazepam (BZO) N 0 - 300 ng/ml 5-qusaowjhpl-0,5-rnevvimw-0,3-diphenylpyrrolidine (MONICA P) N 0 - 300 ng/ml Methamphetamine (MET) N 0 - 1000 ng/ml Methylenedioxymethamphetamine (MDMA) N 0 - 500 ng/ml Morphine (MOP 300/GQC1803) POS 0 - 300 ng/ml Methadone (MTD) N 0 - 300 ng/ml Phencyclidine (PCP) N 0 - 25 ng/ml Propoxyphene (PPX) N 0 - 300 ng/ml Nortriptyline (TCA) N 0 - 1000 ng/ml Oxycodone N 0 - 300 ng/ml Reason For Referral No Information Medications Medication SIG (Take, Route, Frequency, Duration) Notes Start Date End Date Status Spravato (84 MG Dose) 28 MG/DEVICE INHALE 84MG PER NASAL ROUTE EVERY WEEK for 7 days Active Ibsrela 50 MG 1 tablet immediately before meals Orally Twice a day Active Atomoxetine HCl 80 MG 1 capsule in the morning Orally Once a day for 30 days 09/28/2024 11/27/2024 Active Esomeprazole Magnesium 40 MG TAKE 1 CAPSULE BY MOUTH EVERY DAY Oral for 30 Days Active Auvelity 45-105 MG 1 tablet Oral twice a day for 30 days Active Spravato (84 MG Dose) 28 MG/DEVICE 3 sprays in each nostril Nasally once a week for 1 days 09/28/2024 Active Auvelity 45-105 MG 1 tablet Oral twice a day for 30 days 07/02/2024 Active Eliquis 5 MG 1 tablet Orally twice a day Active Gemtesa 75 MG 1 tablet Orally Once a day Active Fluticasone-Salmete rol 250-50 MCG/ACT INHALE 1 PUFF INTO THE LUNGS TWICE DAILY Inhalation for 30 Days Active metFORMIN HCl ER 500 MG TAKE 2 TABLETS BY MOUTH TWICE DAILY WITH MEALS Oral for 30 Days Active Estradiol 0.1 MG/GM Vaginal for 30 Days Active aMILoride HCl 5 MG Oral for 30 Days Active cloNIDine HCl 0.1 MG Oral for 30 Days Active Emgality 120 MG/ML ADMINISTER 1 ML UNDER THE SKIN EVERY 30 DAYS Subcutaneous for 30 Days Active Ozempic (0.25 or 0.5 MG/DOSE) 2 MG/3ML INJECT 0.5 MG UNDER THE SKIN ONCE A WEEK DIRECTED Subcutaneous for 28 Days Active Losartan Potassium 100 MG Oral for 30 Days Active Meloxicam 15 MG TAKE 1 TABLET BY MOUTH DAILY Oral for 28 Days Active Propranolol HCl ER 120 MG Oral for 30 Days Active Rosuvastatin Calcium 10 MG Oral for 30 Days Active ARIPiprazole 20 MG 1 tablet Oral Once a day for 30 days Active HYDROcodone-Acetami nophen 5-325 MG Oral 12/12/2023 Active Atomoxetine HCl 40 MG 1 capsule in the morning Orally Once a day for 14 days 09/28/2024 10/12/2024 Active Zolpidem Tartrate 10 MG 1 tablet at bedtime as needed Oral Once a day for 30 days As needed 09/28/2024 Active Baclofen 10 MG TAKE 1 TABLET BY MOUTH THREE TIMES DAILY NEEDED Oral for 28 Days Active Qelbree 200 MG 2 capsules once a day for 7 days, 1 capsule once a day for 7 days Oral see sign for 14 days *Reorder from [employer] for eRx and Interaction Alerts* Active amLODIPine Besylate 10 MG Oral for 30 Days Active Immunizations Vaccine Route Administration Date Status Comme nts Influenza virus vaccine, quadrivalent (IIV4), split virus, 0.25 mL dosage Unknown 07/06/2015 Administered Influenza virus vaccine, quadrivalent (IIV4), split virus, 0.25 mL dosage Unknown 07/18/2016 Administered Influenza virus vaccine, quadrivalent (IIV4), split virus, 0.25 mL dosage Unknown 05/18/2018 Administered Influenza virus vaccine, quadrivalent (IIV4), split virus, 0.25 mL dosage Unknown 06/17/2019 Administered Influenza, seasonal, injecta ble, preservative free, 3 yrs and above Unknown 05/25/2017 Administered Novel [id number], preservative free Unknown 05/10/2014 Administered Novel [id number]-[id number], preservative free Unknown 05/17/2020 Administered Pfizer Biontech Covid-19 Vac cine 2nd dose Unknown 10/24/2020 Administered Pfizer Biontech Covid-19 Vac cine 2nd dose Unknown 11/14/2020 Administered Pfizer Biontech Covid-19 Vac cine 2nd dose Unknown 12/27/2021 Administered Pneumococcal conjugate PCV 13 Unknown 10/08/2018 Admini stered Tdap Unknown 12/18/2015 Administered Tdap Unknown 10/08/2018 Administered Zoster Unknown 05/17/2020 Administered Zoster Unknown 08/22/2020 Administered Social History Tobacco Use: Social History Observation Description Date Details (start date - stop date) Never Smoker NA - NA Sex Assigned At : Social History Observation Description Sex Assigned At Female Tobacco Control (Standard) Question Answer Notes Tobacco use: Nonsmoker Problems Problem Type SNOMED Code ICD Code Onset Dates Problem Status W/U Status Risk Notes Problem Mild recurrent major depression (18247203) Major depressive disorder, recurrent, mild (F33.0) Active confirmed Problem Severe recurrent major depression without psychotic features (17142340) Major depressive disorder, recurrent severe without psychotic features (F33.2) Active confirmed Problem Generalized anxiety disorder (25420348) Generalized anxiety disorder (F41.1) Active confirmed Problem Primary insomnia (8583291) Primary insomnia (F51.01) Active confirmed Problem Attention deficit hyperactivity disorder (449797183) Attention-deficit hyperactivity disorder, unspecified type (F90.9) Active confirmed Problem Insomnia (700227396) Other insomnia (G47.09) Active confirmed Problem 549152159 Marijuana use (F12.90) Active confirmed Vital Signs Heart Rate 67 /min 09/24/2024 Oximetry 89 % 09/24/2024 Blood pressure diastolic 89 mm Hg 09/24/2024 Height-cm 168.91 cm 09/24/2024 Weight-kg 68.49 kg 08/03/2024 Height 66.50 in 09/24/2024 Blood pressure systolic 140 mm Hg 09/24/2024 Weight 151 lbs 08/03/2024 BMI 24 kg/m2 08/03/2024 Encounters Encounter Location Date Provider Diagnosis [facility] [employer] [facility] [address] [facility] [address] [place] [address] 10/20/2023 Provider Migration [facility] [employer] [facility] [address] [place] [address] 10/21/2023 Provider Migration [facility] [employer] [facility] [address] [facility] [address] [place] [address] 11/03/2023 Provider [facility] [employer] [facility] [address] [facility] [address] [place] [address] 11/04/2023 Provider Migration [facility] [employer] [facility] [address] [facility] [address] [facility] [address] [place] [address] 11/12/2023 Provider Migration [facility], [facility] [address] [place] [address] 12/05/2023 Provider Migration [facility], [facility] [address] [place] [address] 12/08/2023 Provider [facility], [facility] [address] [place] [address] 01/03/2024 Provider [facility], [facility] [address] [place] [address] 01/04/2024 Provider Migration [facility], [facility] [address] [place] [address] 02/20/2024 Nicholas Malagon [facility], [facility] [address] [place] [address] 03/02/2024 Nicholas Malagon Primary insomnia F51.01 [facility], [facility] [address] [place] [address] 03/08/2024 Nicholas Malagon Primary insomnia F51.01 [facility], [facility] [address] [place] [address] 03/10/2024 Nicholas Malagon Primary insomnia F51.01 [facility], [facility] [address] [place] [address] 04/13/2024 Nicholas Malagon [facility], [facility] [address] [place] [address] 04/13/2024 Nicholas Malagon [facility], [facility] [address] [place] [address] 05/24/2024 Nicholas Malagon [facility], [facility] [address] [place] [address] 05/31/2024 Nicholas Malagon Major depressive disorder, recurrent, mild F33.0 [facility], [facility] [address] [place] [address] 06/29/2024 Nicholas Pimenteloza [facility], [facility] [address] [place] [address] 06/29/2024 Nicholas Malagon Attention-deficit hyperactivity disorder, unspecified type F90.9 [facility], [facility] [address] [place] [address] 07/01/2024 Nicholas Malagon Major depressive disorder, recurrent severe without psychotic features F33.2 [facility], [facility] [address] [place] [address] 07/01/2024 Nicholas Malagon Major depressive disorder, recurrent severe without psychotic features F33.2 [facility], [facility] [address] [place] [address] 07/01/2024 Nicholas Malagon [facility], [facility] [address] [place] [address] 07/05/2024 Nicholas Malagon Major depressive disorder, recurrent severe without psychotic features F33.2 [facility], [facility] [address] [place] [address] 07/09/2024 Nicholas Pimenteloza [facility], [facility] [address] [place] [address] 07/12/2024 [facility] [address] [place] [address] 08/30/2024 Laith Haji Major depressive disorder, recurrent severe without psychotic features F33.2 [facility], [facility] [address] [place] [address] 09/10/2024 Nicholas Pimenteloza [facility], [facility] [address] [place] [address] 09/14/2024 [facility] [address] [place] [address] 09/21/2024 Nicholas Dyea [facility], [facility] [address] [place] [address] 03/11/2024 Nicholasnina Pimenteloza [facility], [facility] [address] [place] [address] 03/11/2024 Nicholas Pimenteloza [facility], [facility] [address] [place] [address] 06/01/2024 Nicholasnina Pimenteloza Primary insomnia F51.01 [facility], [facility] [address] [place] [address] 06/04/2024 Nicholas Malagon [facility], [facility] [address] [place] [address] 09/27/2024 Nicholas Malagon [facility], [facility] [address] [place] [address] 12/12/2023 Nicholas Malagon Attention-deficit hyperactivity disorder, unspecified type F90.9 ; Generalized anxiety disorder F41.1 ; Major depressive disorder, recurrent, moderate F33.1 and Primary insomnia F51.01 [facility], [facility] [address] [place] [address] 01/09/2024 Nicholas Malagon [facility], [facility] [address] [place] [address] 07/02/2024 Laith Clubb Major depressive disorder, recurrent severe without psychotic features F33.2 [facility], [facility] [address] [place] [address] 07/06/2024 Laith Clubb Major depressive disorder, recurrent severe without psychotic features F33.2 [facility], [facility] [address] [place] [address] 07/13/2024 Laith Clubb Major depressive disorder, recurrent severe without psychotic features F33.2 and Marijuana use F12.90 [facility], [facility] [address] [place] [address] 07/16/2024 Laith Clubb Major depressive disorder, recurrent severe without psychotic features F33.2 and Marijuana use F12.90 [facility], [facility] [address] [place] [address] 07/20/2024 Laith Clubb Major depressive disorder, recurrent severe without psychotic features F33.2 [facility], [facility] [address] [place] [address] 07/23/2024 Sylvesterjessica Brown Major depressive disorder, recurrent severe without psychotic features F33.2 ; Attention-deficit hyperactivity disorder, unspecified type F90.9 and Primary insomnia F51.01 [facility], [facility] [address] [place] [address] 07/27/2024 Laith Clubb Major depressive disorder, recurrent severe without psychotic features F33.2 [facility], [facility] [address] [place] [address] 07/30/2024 Laith Clubb Major depressive disorder, recurrent severe without psychotic features F33.2 [facility] [address] [place] [address] 08/06/2024 Janis Garcia Major depressive disorder, recurrent severe without psychotic features F33.2 [facility], [facility] [address] [place] [address] 08/13/2024 Laith Clubb Major depressive disorder, recurrent severe without psychotic features F33.2 [facility] [address] [place] [address] 08/20/2024 Laith Clubb Major depressive disorder, recurrent severe without psychotic features F33.2 [facility], [facility] [address] [place] [address] 08/27/2024 Laith Clubb Major depressive disorder, recurrent severe without psychotic features F33.2 [facility] [address] [place] [address] 09/03/2024 Laith Clubb Major depressive disorder, recurrent severe without psychotic features F33.2 [facility] [address] [place] [address] 09/17/2024 Laith Clubb Major depressive disorder, recurrent severe without psychotic features F33.2 [facility], [facility] [address] [place] [address] 09/24/2024 Laith Clubb Major depressive disorder, recurrent severe without psychotic features F33.2 and Benign essential HTN I10 [facility], [facility] [address] [place] [address] 11/04/2023 Provider Migration Primary insomnia F51.01 [facility] [address] [place] [address] 02/10/2024 Nicholas Malagon Primary insomnia F51.01 ; Generalized anxiety disorder F41.1 ; Major depressive disorder, recurrent, mild F33.0 and Attention-deficit hyperactivity disorder, unspecified type F90.9 [facility] [address] [place] [address] 03/11/2024 Nicholas Malagon [facility], [facility] [address] [place] [address] 05/24/2024 Nicholas Malagon Primary insomnia F51.01 ; Generalized anxiety disorder F41.1 ; Major depressive disorder, recurrent, mild F33.0 ; Attention-deficit hyperactivity disorder, unspecified type F90.9 and Marijuana use F12.90 [facility] [employer] [facility] [address] [place] [address] 09/28/2024 Nicholas Malagon Primary insomnia F51.01 ; Generalized anxiety disorder F41.1 ; Major depressive disorder, recurrent, mild F33.0 ; Attention-deficit hyperactivity disorder, unspecified type F90.9 ; Marijuana use F12.90 and Major depressive disorder, recurrent severe without psychotic features 296.33 [facility] [place] [address] [place] [address] 09/14/2024 Nicholas Dyea [place] [address] [place] [address] 08/03/2024 Nicholas Malagon Primary insomnia F51.01 ; Generalized anxiety disorder F41.1 ; Major depressive disorder, recurrent, mild F33.0 ; Attention-deficit hyperactivity disorder, unspecified type F90.9 and Marijuana use F12.90 Assessments Encounter Date Diagnosis (ICD Code) Assessment Notes Treatment Notes Treatment Clinical Notes Section Notes 03/08/2024 Primary insomnia (ICD-10 - F51.01) Electronic Prior Authorization was requested for Quviviq 25 MG Tablet. Provider can order medication once approval received. 03/10/2024 Primary insomnia (ICD-10 - F51.01) 08/30/2024 Major depressive disorder, recurrent severe without psychotic features (ICD-10 - F33.2) 07/05/2024 Major depressive disorder, recurrent severe without psychotic features (ICD-10 - F33.2) 06/29/2024 Attention-defic it hyperactivity disorder, unspecified type (ICD-10 - F90.9) 09/28/2024 Primary insomnia (ICD-10 - F51.01) 11/04/2023 Primary insomnia (ICD-10 - F51.01) 02/10/2024 Generalized anxiety disorder (ICD-10 - F41.1) 1. Hypertension: - Patient reports fluctuating blood pressure, recently elevated. - Currently on Lisinopril, Amlodipine, and Clonidine. Plan: - Continue current medications. - Monitor blood pressure regularly and report to globe changer and retail selling floor leader. - Follow up in 1 month or sooner if blood pressure remains uncontrolled. 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 Plan: - Continue management under globe changer and retail selling floor leader. 3. Depression: - Patient reports decreased interest in activities and poor appetite. - Currently on Abilify 20 mg daily and Auvelity 45mg-105mg twice a day. Plan: - Continue current medications. - Consider counseling and cognitive-behavio ral therapy (CBT) for depression. - Follow up in 1 month to reassess symptoms. 4. ADHD: - Patient currently on Qelbree 400 mg daily. Plan: - Increase Qelbree to 600 mg daily (three 200 mg tablets). - Follow up in 1 month to assess response to increased dosage. 5. Insomnia: - Patient currently on Zolpidem 10 mg daily. Plan: - Decrease Zolpidem to 5 mg daily. - Add Quviviq at bedtime. - Consider CBT for insomnia. - Follow up in 1 month to assess sleep quality. 7. Medication review and management: - Patient is on multiple medications for various conditions. Plan: - Continue current medications as discussed during the visit. - Follow up in 1 month for medication review and management. 02/10/2024 Primary insomnia (ICD-10 - F51.01) 1. Hypertension: - Patient reports fluctuating blood pressure, recently elevated. - Currently on Lisinopril, Amlodipine, and Clonidine. Plan: - Continue current medications. - Monitor blood pressure regularly and report to globe changer and retail selling floor leader. - Follow up in 1 month or sooner if blood pressure remains uncontrolled. 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 Plan: - Continue management under globe changer and retail selling floor leader. 3. Depression: - Patient reports decreased interest in activities and poor appetite. - Currently on Abilify 20 mg daily and Auvelity 45mg-105mg twice a day. Plan: - Continue current medications. - Consider counseling and cognitive-behavio ral therapy (CBT) for depression. - Follow up in 1 month to reassess symptoms. 4. ADHD: - Patient currently on Qelbree 400 mg daily. Plan: - Increase Qelbree to 600 mg daily (three 200 mg tablets). - Follow up in 1 month to assess response to increased dosage. 5. Insomnia: - Patient currently on Zolpidem 10 mg daily. Plan: - Decrease Zolpidem to 5 mg daily. - Add Quviviq at bedtime. - Consider CBT for insomnia. - Follow up in 1 month to assess sleep quality. 7. Medication review and management: - Patient is on multiple medications for various conditions. Plan: - Continue current medications as discussed during the visit. - Follow up in 1 month for medication review and management. 05/24/2024 Generalized anxiety disorder (ICD-10 - F41.1) 1. Major Depressive Disorder, recurrent, severe: - Continue Abilify 20 mg daily - Continue Auvelity as prescribed Plan: - Attempt to obtain prior authorization for Spravato (esketamine) treatment - Monitor progress in IOP and PHP program - Follow up in 1 month or sooner if needed 2. Insomnia: Plan: - Continue Zolpidem 10mg hs prn - Reevaluate sleep hygiene and consider non-pharmacologic al interventions 3. Attention Deficit Hyperactivity Disorder (ADHD): - Continue Qelbree 600 mg daily Plan: - Monitor response and side effects 4. Gastrointestinal symptoms (diarrhea, nausea, vomiting): Plan: - Recommend patient to visit urgent care or primary care physician for evaluation - Monitor symptoms and consider further workup if needed 5. Hypertension: - Continue current blood pressure medication as prescribed Plan: - Discuss with primary care physician regarding blood pressure fluctuations and possible relationship with marijuana use - Ensure blood pressure is well-controlled prior to initiating Spravato treatment - Encourage patient to monitor blood pressure regularly 6. Substance use (marijuana): Plan: - Assess frequency and impact on overall health, including blood pressure - Consider discussing with primary care physician or substance use counselor if needed 05/24/2024 Primary insomnia (ICD-10 - F51.01) 1. Major Depressive Disorder, recurrent, severe: - Continue Abilify 20 mg daily - Continue Auvelity as prescribed Plan: - Attempt to obtain prior authorization for Spravato (esketamine) treatment - Monitor progress in IOP and PHP program - Follow up in 1 month or sooner if needed 2. Insomnia: Plan: - Continue Zolpidem 10mg hs prn - Reevaluate sleep hygiene and consider non-pharmacologic al interventions 3. Attention Deficit Hyperactivity Disorder (ADHD): - Continue Qelbree 600 mg daily Plan: - Monitor response and side effects 4. Gastrointestinal symptoms (diarrhea, nausea, vomiting): Plan: - Recommend patient to visit urgent care or primary care physician for evaluation - Monitor symptoms and consider further workup if needed 5. Hypertension: - Continue current blood pressure medication as prescribed Plan: - Discuss with primary care physician regarding blood pressure fluctuations and possible relationship with marijuana use - Ensure blood pressure is well-controlled prior to initiating Spravato treatment - Encourage patient to monitor blood pressure regularly 6. Substance use (marijuana): Plan: - Assess frequency and impact on overall health, including blood pressure - Consider discussing with primary care physician or substance use counselor if needed 07/01/2024 Major depressive disorder, recurrent severe without psychotic features (ICD-10 - F33.2) 07/02/2024 Major depressive disorder, recurrent severe without psychotic features (ICD-10 - F33.2) continue the current treatment prescribed by primary psychiatric care provider. 1. Depression - Patient rates depression at 7 out of 10. - No recent changes in medication for depression. - Continue current antidepressant medication. - Monitor patient's mood and response to treatment. - Encourage patient to engage in therapy and support groups. 2. Anxiety - Patient rates anxiety at 7 out of 10. - No recent changes in medication for anxiety. - Continue current anxiolytic medication. - Monitor patient's anxiety levels and response to treatment. - Encourage patient to practice relaxation techniques and engage in therapy. 3. Sleep - Patient reports getting 6 hours of sleep per night. - Encourage patient to practice good sleep hygiene. 4. Appetite - Patient reports a poor appetite, stating it's not great. - Patient acknowledges she is working on improving appetite. - Encourage patient to eat regular, balanced meals. - Monitor weight and nutritional status. 5. Medication Change - Patient recently started on Eliquis 5 mg twice daily for blood thinning. 6. Suicide and Self-Harm Risk - Patient denies any thoughts of suicide or self-harm. - Continue to monitor patient's mental status and risk factors. - Encourage patient to reach out to support networks and mental health professionals if needed. 7. Violence Risk - Patient denies any thoughts of harming others. - Continue to monitor patient's mental status and risk factors. - Encourage patient to engage in therapy and support groups to address any potential issues. 8. Psychotic Symptoms - Patient denies any hallucinations, delusions, or paranoia. - Continue to monitor patient's mental status for any signs of psychotic symptoms. 07/06/2024 Major depressive disorder, recurrent severe without psychotic features (ICD-10 - F33.2) continue current treatment as prescribed by primary psychiatric care provider. 1. Major Depressive Disorder - Patient reports a depression rating of 8/10. - Continue current antidepressant medication as prescribed by primary psychiatric care provider. - Monitor for changes in mood or worsening symptoms. - Encourage engagement in therapy and self-care activities. 2. Generalized Anxiety Disorder - Patient reports an anxiety rating of 6/10. - Continue current anxiolytic medication as prescribed by primary psychiatric care provider. - Monitor for changes in anxiety levels or worsening symptoms. - Encourage engagement in relaxation techniques and cognitive-behavio ral therapy. 3. Suicidal Ideation and Self-harm - Patient denies thoughts of suicide or self-harm. - Patient denies thoughts of hurting others. - Continue monitoring for changes in mood or emergence of suicidal ideation/self-haydee m behaviors. - Encourage patient to seek support if needed. 4. Sleep Disturbance - Patient reports getting 4-6 hours of sleep per night. - Encourage good sleep hygiene and consistent sleep schedule. 5. Appetite Disturbance - Patient reports low appetite but is making effort to eat. - Encourage maintaining balanced diet and regular meals. - Monitor for changes in appetite or weight. 6. Psychosis Screening - Patient denies hallucinations, delusions, or paranoia. - Continue monitoring for emergence of psychotic symptoms in future visits. 07/13/2024 Major depressive disorder, recurrent severe without psychotic features (ICD-10 - F33.2) 1. Depression - Patient rates depression as 6/10. - No recent changes in medication. - Plan: a. Continue current antidepressant therapy. b. Monitor patient's mood and response to treatment. c. Encourage regular physical activity and social interactions. 2. Anxiety - Patient rates anxiety as 7/10. - No recent changes in medication. - Plan: a. Continue current anxiolytic therapy. b. Monitor anxiety levels and response to treatment. c. Encourage relaxation techniques like deep breathing and mindfulness. 3. Insomnia - Patient reports getting 4-6 hours of sleep per night. - Plan: a. Encourage good sleep hygiene, including consistent sleep schedule and relaxing bedtime routine. b. Consider evaluation for sleep disorders if sleep does not improve. 4. Substance Use - Patient reports decreased marijuana use, stating Used to be, it's not now and Not so much anymore when asked about daily use. - Plan: a. Encourage continued reduction in marijuana use. b. Monitor for potential withdrawal symptoms or impact on mental health. 5. Right Hip Pain - Patient reports new onset of right hip pain. - Orthopedic doctor informed and plans to obtain an x-ray. - Patient states they just have to go up there for the x-ray. - Plan: a. Follow up with orthopedic doctor regarding x-ray results and treatment recommendations. b. Encourage patient to report any worsening or persistent pain. 6. General Health - Patient reports improved appetite, stating It's a lot better. - No new physical complaints or medication changes. - Patient denies smoking, thoughts of suicide, self-harm, or hurting others. - Patient denies hallucinations, delusions, or paranoia. - Plan: a. Continue monitoring overall health and well-being. b. Encourage maintenance of balanced diet and regular exercise routine. 07/13/2024 Marijuana use (ICD-10 - F12.90) 1. Depression - Patient rates depression as 01/25. - No recent changes in medication. - Plan: a. Continue current antidepressant therapy. b. Monitor patient's mood and response to treatment. c. Encourage regular physical activity and social interactions. 2. Anxiety - Patient rates anxiety as 02/24. - No recent changes in medication. - Plan: a. Continue current anxiolytic therapy. b. Monitor anxiety levels and response to treatment. c. Encourage relaxation techniques like deep breathing and mindfulness. 3. Insomnia - Patient reports getting 4-6 hours of sleep per night. - Plan: a. Encourage good sleep hygiene, including consistent sleep schedule and relaxing bedtime routine. b. Consider evaluation for sleep disorders if sleep does not improve. 4. Substance Use - Patient reports decreased marijuana use, stating Used to be, it's not now and Not so much anymore when asked about daily use. - Plan: a. Encourage continued reduction in marijuana use. b. Monitor for potential withdrawal symptoms or impact on mental health. 5. Right Hip Pain - Patient reports new onset of right hip pain. - Orthopedic doctor informed and plans to obtain an x-ray. - Patient states they just have to go up there for the x-ray. - Plan: a. Follow up with orthopedic doctor regarding x-ray results and treatment recommendations. b. Encourage patient to report any worsening or persistent pain. 6. General Health - Patient reports improved appetite, stating It's a lot better. - No new physical complaints or medication changes. - Patient denies smoking, thoughts of suicide, self-harm, or hurting others. - Patient denies hallucinations, delusions, or paranoia. - Plan: a. Continue monitoring overall health and well-being. b. Encourage maintenance of balanced diet and regular exercise routine. 07/16/2024 Major depressive disorder, recurrent severe without psychotic features (ICD-10 - F33.2) Continue current treatment as prescribed by primary psychiatric care provider. 1. Depression - Patient rates depression as 6/10. - No thoughts of suicide or self-harm. - Plan: a. Continue current antidepressant medication. b. Monitor patient's mood and depressive symptoms. 2. Anxiety - Patient rates anxiety as 6/10. - No thoughts of hurting others. - Plan: a. Continue current anxiolytic medication. b. Monitor patient's anxiety levels and symptoms. 3. Sleep - Patient reports getting 6 hours of sleep per night. - Plan: a. Encourage good sleep hygiene practices. 4. Appetite - Patient reports appetite has been off for the last couple of days. - Plan: a. Monitor patient's appetite and weight. 5. Mental Status - No hallucinations, delusions, or paranoia reported. - Plan: a. Continue to monitor for any changes in mental status. 6. marijuna use pt reports marijuana use plan: a. discussed the impact marijuana has on medication metabolism b. discussed the risks of marijuana use and mental illness. c. advised pt to d/c marijuana use. 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 Depression - Patient rates her depression as 6/10. - Plan: Continue current treatment as prescribed by primary psychiatric care provider. 2. Anxiety - Patient rates her anxiety as 5/10. - Plan: Continue current treatment as prescribed by primary psychiatric care provider. 3. Sleep Disturbance - Patient reports approximately 6 hours of sleep per night. - Plan: Continue current treatment as prescribed by primary psychiatric care provider. 4. Suicidal Ideation, Self-Harm, and Homicidal Ideation - Patient explicitly denies thoughts of suicide, self-harm, or hurting others. - Plan: Continue current treatment Notify provider if suicidal thoughts occur or seek emergency services. 6. Psychosis - Patient explicitly denies experiencing hallucinations, delusions, or paranoia. - Plan: Continue current treatment Notify provider if psychosis occurs or seek emergency services. 7. Medications - Patient reports no recent medication changes. - Plan: a. Continue current medication regimen. b. Review medications during future appointments. 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 Patient experienced a temporary worsening of mood due to running out of Abilify. Patient is in their 3rd week of esketamine treatment. - Plan: - Continue esketamine treatment as prescribed. - Ensure Abilify prescription is refilled and patient is compliant with medication. Insomnia - Assessment: Patient reports needing a refill for Zolpidem. Patient has one day of Zolpidem left. 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 - Monitor patient's sleep quality and adjust treatment as needed. Medication Management - Assessment: Patient reports issues with pharmacy refilling medications on time and coordinating prescriptions. Patient is on a program to synchronize medication refills, but it's not working effectively. Patient is also part of a program called [facility], where another doctor can prescribe medications if needed. - Plan: - Review patient's medication list with [facility] to ensure all prescriptions are current and sent to the pharmacy. - Coordinate with the pharmacy to improve medication refill process and synchronize refill dates. - Encourage patient to communicate any issues with medication refills promptly to the care team. - Verify and refill Qelbree prescription if needed. Follow-up - Assessment: Patient has been seeing Jermaine for a long time. - Plan: - Instruct patient to schedule a follow-up appointment with Jermaine. - Continue to monitor patient's mood, sleep, and medication compliance during follow-up visits. 1 Review patient medical records, any recent test results, last visit summary, etc Yes1 Time spent 55 Reviewed and documented history and medication Yes5 Time spent 56 Evaluate patient's clinical status [relevant history/physical assessment] and determine readiness/appropr iateness of treatment Yes6 Time spent 107 Confirm orders and review plans with staff Yes7 Time spent 28 Ensure appropriate positioning for administration, observe patient administration, ensure patient comfort and safety Yes8 Time spent 510 Assess the patient response to treatment: Visually and verbally evaluate the patient; review treatment progress with staff [vital signs, patient tolerance, side effects, etc.] Yes10 Time spent 512 At the completion of observation., Reviewed treatment course and assess the patient for clinical stability/dischar ge readiness Yes12 Time spent 513 Write a prescription or Reviewed RX for next session and submit to pharmacy Yes13 Time spent 516 Complete medical record documentation Yes16 Time spent 9I attest to the total time spent Before, During and after ecounter was (in Minutes) 51 05/31/2024 Major depressive disorder, recurrent, mild (ICD-10 - F33.0) 06/01/2024 Primary insomnia (ICD-10 - F51.01) 07/27/2024 Major depressive disorder, recurrent severe without psychotic features (ICD-10 - F33.2) continue current treatment as prescribed by primary psychiatric care provider. 1. Depression - Patient rates her depression as 5/10. - No thoughts of suicide or self-harm. - Plan: a. Continue current antidepressant medication. b. Monitor depressive symptoms at future appointments. c. Encourage regular physical activity and maintain a healthy sleep schedule. 2. Anxiety - Patient rates her anxiety as 4/10. - Plan: a. Continue current anxiolytic medication. b. Monitor anxiety symptoms at future appointments. c. Encourage practice of relaxation techniques, such as deep breathing exercises or mindfulness meditation. 3. Sleep - Patient reports getting 6 hours of sleep per night. - Plan: a. Encourage maintaining a consistent sleep schedule and practicing good sleep hygiene. b. Monitor sleep duration and quality at future appointments. 4. Appetite - Patient reports her appetite as okay. - Plan: a. Encourage maintaining a balanced diet and eating regular meals. b. Monitor appetite and weight at follow-up appointments. c. Consider referral to a wholesale representative if appetite issues persist or weight changes significantly. 5. Psychosis - Patient denies any hallucinations, delusions, or paranoia. - Plan: a. Continue to monitor for any signs of psychosis at future appointments. 6. Medication Management - Patient reports no new medicine changes. - Plan: a. Continue current medication regimen. b. Review medication side effects and adherence at future appointments. 7. Physical Health - Patient reports no new physical complaints. - Plan: a. Encourage maintaining regular primary care appointments and reporting any new physical concerns. 8. Safety - Patient denies thoughts of hurting herself or others. - Plan: a. Continue to assess for safety concerns at each appointment. 07/30/2024 Major depressive disorder, recurrent severe without psychotic features (ICD-10 - F33.2) continue current treatment as prescribed by primary psychiatric care provider. 1. Depression - Patient rates depression on a scale of 0 to 10 (exact number not provided). - Plan: a. Continue monitoring severity and response to current treatment. b. Encourage patient to engage in therapy and self-care activities. 2. Anxiety - Patient rates anxiety on a scale of 0 to 10 (exact number not provided). - Plan: a. Continue monitoring severity and response to current treatment. b. Encourage patient to engage in relaxation techniques and coping strategies. 3. Suicidal Ideation and Self-Harm - Patient denies any thoughts of suicide or self-harm. - Plan: a. Continue to monitor for any changes in mood or behavior. 4. Homicidal Ideation - Patient denies any thoughts of hurting others. - Plan: a. Continue to monitor for any changes in mood or behavior. 5. Psychosis - Patient denies any hallucinations, delusions, or paranoia. - Plan: a. Continue to monitor for any changes in mental status. 6. Sleep - Patient reports getting an unspecified number of hours of sleep. - Plan: a. Encourage good sleep hygiene. b. Monitor for any changes in sleep patterns. 7. Appetite - Patient's appetite details are not specified. - Plan: a. Monitor for any changes in appetite or weight. 03/02/2024 Primary insomnia (ICD-10 - F51.01) 08/03/2024 Primary insomnia (ICD-10 - F51.01) 1. Depression: - Patient reported improvement in depression symptoms. - Currently on Abilify 20 mg daily, Auvelity 45mg-105mg twice a day and participating in an IOP program through [facility]. Plan: - Continue with current treatment plan. - Monitor progress. 2. Anxiety: - Patient reported a decrease in anxiety levels. Plan: - Continue with current treatment plan, including Abilify 20 mg daily and participation in the IOP program through [facility]. - Monitor progress. 3. Sleep disturbances: - Patient reported improvement in sleep quality and duration. - Recently had a sleep study and is awaiting results. Plan: - Continue with current treatment plan, including Ambien as needed for sleep. - Follow up on sleep study results and adjust treatment as necessary. 4. Spravato treatment: - Patient has been receiving Spravato twice a week for the past 4 weeks and reported a stable mood between treatments. Plan: - Increase the Spravato dosage to 84 mg once a week. - Monitor progress and adjust the treatment plan as needed. 5. Financial stress: - Patient reported experiencing financial stress, which may be contributing to anxiety levels. Plan: - Encourage patient to explore resources and support systems to help manage financial stress. 6. ADHD: - Continue Qelbree 600mg daily Follow-up: - Schedule a follow-up appointment in approximately 6 weeks to evaluate the patient's progress and make any necessary adjustments to the treatment plan. 08/06/2024 Major depressive disorder, recurrent severe without psychotic features (ICD-10 - F33.2) Depression Plan: - continue esketamine treatments and treatment plan recommendations per your regular psychiatric provider. 1 Review patient medical records, any recent test results, last visit summary, etc Yes, Time spent 3 2 Greet patient and escort to the treatment room Yes, Time spent 2 3 Initial Obtained vital signs No 4 Prepare equipment and supplies No 5 Reviewed and documented history and medication Yes, Time spent 2 6 Evaluate patient's clinical status [relevant history/physical assessment] and determine readiness/appropr iateness of treatment Yes, Time spent 7 7 Confirm orders and review plans with staff Yes, Time spent 2 8 Ensure appropriate positioning for administration, observe patient administration, ensure patient comfort and safety Yes, Time spent 3 9 Obtained vital signs: Assess treatment tolerance No 10 Assess the patient response to treatment: Visually and verbally evaluate the patient; review treatment progress with staff [vital signs, patient tolerance, side effects, etc.] Yes, Time spent 15 11 obtained vital signs: assess treatment tolerance No 12 At the completion of observation., Reviewed treatment course and assess the patient for clinical stability/dischar ge readiness Yes, Time spent 13 13 Write a prescription or Reviewed RX for next session and submit to pharmacy No 14 Provide patient education/instruc tion/ Yes, Time spent 11 15 Coordinate home-going [that is, discharged to escorted transportation] No 16 Complete medical record documentation Yes, Time spent 9 17 cleaning of room/equipment by clinical staff No 18 complete medical record documentation; complete and submit rems patient monitoring form No I attest to the total time spent Before, During and after ecounter was (in Minutes) 67 08/13/2024 Major depressive disorder, recurrent severe without psychotic features (ICD-10 - F33.2) continue current tx as prescribed by primary psychiatric care provider. 1. Depression - Patient rates her depression as 2/10. - No thoughts of suicide or self-harm. - Plan: a. Continue current antidepressant medication. b. Monitor depressive symptoms at follow-up visits. c. Encourage regular physical activity and social interactions. 2. Anxiety - Patient rates her anxiety as 2/10. - Plan: a. Continue current anxiolytic medication. b. Monitor anxiety symptoms at follow-up visits. c. Encourage relaxation techniques like deep breathing and mindfulness. 3. Sleep - Patient reports getting approximately 6 hours of sleep per night. - Plan: a. Encourage good sleep hygiene with consistent schedule and bedtime routine. b. Monitor sleep duration and quality at follow-up visits. 4. Appetite - Patient reports having a fine appetite. - Plan: a. Encourage maintaining a balanced diet. b. Monitor appetite and weight at follow-up visits. 5. Medication management - No changes in medication reported by the patient. - Plan: a. Continue current medication regimen. b. Monitor for side effects/interacti ons at follow-up visits. 6.Other mental health symptoms - Patient denies thoughts of hurting others. - Patient denies experiencing hallucinations, delusions, or paranoia. - Plan: a. Continue monitoring for changes in mental health symptoms at follow-up visits. 08/20/2024 Major depressive disorder, recurrent severe without psychotic features (ICD-10 - F33.2) continue current tx as prescribed by primary psychiatric care provider. 1. Depression - Patient rates depression as 2/10. - No reported thoughts of suicide or self-harm. - Plan: a. Continue current treatment and monitor progress. b. Encourage patient to engage in activities promoting mental well-being (exercise, socializing, relaxation techniques). 2. Anxiety - Patient rates anxiety as 2/10. - No reported thoughts of hurting others. - Plan: a. Continue current treatment and monitor progress. b. Encourage practice of stress management techniques (deep breathing exercises, mindfulness, cognitive-behavio ral strategies). 3. Sleep - Patient reports getting 6 hours of sleep per night. - Plan: a. Encourage consistent sleep schedule and good sleep hygiene. b. Monitor sleep patterns and consider treatment adjustments if needed. 4. Appetite - Patient reports a good appetite. - Plan: a. Encourage balanced diet and hydration. b. Monitor appetite and weight during follow-ups. 5. Gastrointestinal Complaint - Patient reports upset stomach starting last night. - No reported vomiting. - Plan: a. Encourage avoidance of potential triggers and eating smaller, frequent meals. b. Monitor symptoms and consider further evaluation if persistent or worsening. 6. Medication Management - No reported changes in medications. - Plan: a. Continue current medications as prescribed. b. Review side effects and potential interactions during follow-ups. c. Encourage reporting of new or concerning side effects. 7. Mental Status - No reported hallucinations, delusions, or paranoia. - Plan: a. Continue monitoring for changes in mental status during follow-ups. 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 1. Depression - Patient rates her depression as 4 out of 10. - Plan: a. Continue current antidepressant medication. b. Monitor patient's mood and depressive symptoms at follow-up visits. c. Encourage regular physical activity and healthy sleep schedule. 2. Anxiety - Patient rates her anxiety as 2 out of 10. - Plan: a. Continue current anxiolytic medication. b. Monitor anxiety levels at follow-up visits. c. Encourage relaxation techniques like deep breathing exercises and mindfulness meditation. 3. Sleep - Patient reports getting 6 hours of sleep per night. - Plan: a. Encourage consistent sleep schedule and good sleep hygiene. b. Assess for sleep disturbances or insomnia at follow-up visits. c. Consider strategies to improve sleep duration, aiming for 7-9 hours per night. 4. Suicide, Self-harm, and Harm to Others - No reported thoughts of suicide, self-harm, or harm to others. - Plan: a. Continue to assess for changes in mental status or risk factors at follow-up visits. 5. Psychosis - No reported hallucinations, delusions, or paranoia. - Plan: a. Continue to monitor for emergence of psychotic symptoms at follow-up visits. 6. Physical Complaints - No new physical complaints. - Plan: a. Continue to assess for new or worsening physical symptoms at follow-up visits. 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 09/17/2024 Major depressive disorder, recurrent severe without psychotic features (ICD-10 - F33.2) Continue current treatment as prescribed by primary psychiatric care provider. 09/24/2024 Major depressive disorder, recurrent severe without psychotic features (ICD-10 - F33.2) continue current treatment as prescribed by primary psychiartic care provider. 12/12/2023 Major depressive disorder, recurrent, moderate (ICD-10 - F33.1) 12/12/2023 Generalized anxiety disorder (ICD-10 - F41.1) 12/12/2023 Primary insomnia (ICD-10 - F51.01) 12/12/2023 Attention-defic it hyperactivity disorder, unspecified type (ICD-10 - F90.9) 02/10/2024 Major depressive disorder, recurrent, mild (ICD-10 - F33.0) 1. Hypertension: - Patient reports fluctuating blood pressure, recently elevated. - Currently on Lisinopril, Amlodipine, and Clonidine. Plan: - Continue current medications. - Monitor blood pressure regularly and report to globe changer and retail selling floor leader. - Follow up in 1 month or sooner if blood pressure remains uncontrolled. 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 Plan: - Continue management under globe changer and retail selling floor leader. 3. Depression: - Patient reports decreased interest in activities and poor appetite. - Currently on Abilify 20 mg daily and Auvelity 45mg-105mg twice a day. Plan: - Continue current medications. - Consider counseling and cognitive-behavio ral therapy (CBT) for depression. - Follow up in 1 month to reassess symptoms. 4. ADHD: - Patient currently on Qelbree 400 mg daily. Plan: - Increase Qelbree to 600 mg daily (three 200 mg tablets). - Follow up in 1 month to assess response to increased dosage. 5. Insomnia: - Patient currently on Zolpidem 10 mg daily. Plan: - Decrease Zolpidem to 5 mg daily. - Add Quviviq at bedtime. - Consider CBT for insomnia. - Follow up in 1 month to assess sleep quality. 7. Medication review and management: - Patient is on multiple medications for various conditions. Plan: - Continue current medications as discussed during the visit. - Follow up in 1 month for medication review and management. 09/24/2024 Benign essential HTN (ICD-10 - I10) 08/03/2024 Generalized anxiety disorder (ICD-10 - F41.1) 1. Depression: - Patient reported improvement in depression symptoms. - Currently on Abilify 20 mg daily, Auvelity 45mg-105mg twice a day and participating in an IOP program through [facility]. Plan: - Continue with current treatment plan. - Monitor progress. 2. Anxiety: - Patient reported a decrease in anxiety levels. Plan: - Continue with current treatment plan, including Abilify 20 mg daily and participation in the IOP program through [facility]. - Monitor progress. 3. Sleep disturbances: - Patient reported improvement in sleep quality and duration. - Recently had a sleep study and is awaiting results. Plan: - Continue with current treatment plan, including Ambien as needed for sleep. - Follow up on sleep study results and adjust treatment as necessary. 4. Spravato treatment: - Patient has been receiving Spravato twice a week for the past 4 weeks and reported a stable mood between treatments. Plan: - Increase the Spravato dosage to 84 mg once a week. - Monitor progress and adjust the treatment plan as needed. 5. Financial stress: - Patient reported experiencing financial stress, which may be contributing to anxiety levels. Plan: - Encourage patient to explore resources and support systems to help manage financial stress. 6. ADHD: - Continue Qelbree 600mg daily Follow-up: - Schedule a follow-up appointment in approximately 6 weeks to evaluate the patient's progress and make any necessary adjustments to the treatment plan. 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 Provider can order medication once approval received. 07/23/2024 Primary insomnia (ICD-10 - F51.01) Depression - Assessment: Patient reports improved mood with esketamine treatment. Patient experienced a temporary worsening of mood due to running out of Abilify. Patient is in their 3rd week of esketamine treatment. - Plan: - Continue esketamine treatment as prescribed. - Ensure Abilify prescription is refilled and patient is compliant with medication. Insomnia - Assessment: Patient reports needing a refill for Zolpidem. Patient has one day of Zolpidem left. - Plan: - Refill Zolpidem prescription and instruct patient to picking crew supervisor at [facility]. - Monitor patient's sleep quality and adjust treatment as needed. Medication Management - Assessment: Patient reports issues with pharmacy refilling medications on time and coordinating prescriptions. Patient is on a program to synchronize medication refills, but it's not working effectively. Patient is also part of a program called [facility], where another doctor can prescribe medications if needed. - Plan: - Review patient's medication list with Anamaria to ensure all prescriptions are current and sent to the pharmacy. - Coordinate with the pharmacy to improve medication refill process and synchronize refill dates. - Encourage patient to communicate any issues with medication refills promptly to the care team. - Verify and refill Qelbree prescription if needed. Follow-up - Assessment: Patient has been seeing Jermaine for a long time. - Plan: - Instruct patient to schedule a follow-up appointment with Jermaine. - Continue to monitor patient's mood, sleep, and medication compliance during follow-up visits. 1 Review patient medical records, any recent test results, last visit summary, etc Yes1 Time spent 55 Reviewed and documented history and medication Yes5 Time spent 56 Evaluate patient's clinical status [relevant history/physical assessment] and determine readiness/appropr iateness of treatment Yes6 Time spent 107 Confirm orders and review plans with staff Yes7 Time spent 28 Ensure appropriate positioning for administration, observe patient administration, ensure patient comfort and safety Yes8 Time spent 510 Assess the patient response to treatment: Visually and verbally evaluate the patient; review treatment progress with staff [vital signs, patient tolerance, side effects, etc.] Yes10 Time spent 512 At the completion of observation., Reviewed treatment course and assess the patient for clinical stability/dischar ge readiness Yes12 Time spent 513 Write a prescription or Reviewed RX for next session and submit to pharmacy Yes13 Time spent 516 Complete medical record documentation Yes16 Time spent 9I attest to the total time spent Before, During and after ecounter was (in Minutes) 51 07/23/2024 Attention-defic it hyperactivity disorder, unspecified type (ICD-10 - F90.9) Depression - Assessment: Patient reports improved mood with esketamine treatment. Patient experienced a temporary worsening of mood due to running out of Abilify. Patient is in their 3rd week of esketamine treatment. - Plan: - Continue esketamine treatment as prescribed. - Ensure Abilify prescription is refilled and patient is compliant with medication. Insomnia - Assessment: Patient reports needing a refill for Zolpidem. Patient has one day of Zolpidem left. 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 - Monitor patient's sleep quality and adjust treatment as needed. Medication Management - Assessment: Patient reports issues with pharmacy refilling medications on time and coordinating prescriptions. Patient is on a program to synchronize medication refills, but it's not working effectively. Patient is also part of a program called [facility], where another doctor can prescribe medications if needed. - Plan: - Review patient's medication list with Anamaria to ensure all prescriptions are current and sent to the pharmacy. - Coordinate with the pharmacy to improve medication refill process and synchronize refill dates. - Encourage patient to communicate any issues with medication refills promptly to the care team. - Verify and refill Qelbree prescription if needed. Follow-up - Assessment: Patient has been seeing Jermaine for a long time. - Plan: - Instruct patient to schedule a follow-up appointment with Jermaine. - Continue to monitor patient's mood, sleep, and medication compliance during follow-up visits. 1 Review patient medical records, any recent test results, last visit summary, etc Yes1 Time spent 55 Reviewed and documented history and medication Yes5 Time spent 56 Evaluate patient's clinical status [relevant history/physical assessment] and determine readiness/appropr iateness of treatment Yes6 Time spent 107 Confirm orders and review plans with staff Yes7 Time spent 28 Ensure appropriate positioning for administration, observe patient administration, ensure patient comfort and safety Yes8 Time spent 510 Assess the patient response to treatment: Visually and verbally evaluate the patient; review treatment progress with staff [vital signs, patient tolerance, side effects, etc.] Yes10 Time spent 512 At the completion of observation., Reviewed treatment course and assess the patient for clinical stability/dischar ge readiness Yes12 Time spent 513 Write a prescription or Reviewed RX for next session and submit to pharmacy Yes13 Time spent 516 Complete medical record documentation Yes16 Time spent 9I attest to the total time spent Before, During and after ecounter was (in Minutes) 51 07/16/2024 Marijuana use (ICD-10 - F12.90) 1. Depression - Patient rates depression as 01/25. - No thoughts of suicide or self-harm. - Plan: a. Continue current antidepressant medication. b. Monitor patient's mood and depressive symptoms. 2. Anxiety - Patient rates anxiety as 6/10. - No thoughts of hurting others. - Plan: a. Continue current anxiolytic medication. b. Monitor patient's anxiety levels and symptoms. 3. Sleep - Patient reports getting 6 hours of sleep per night. - Plan: a. Encourage good sleep hygiene practices. 4. Appetite - Patient reports appetite has been off for the last couple of days. - Plan: a. Monitor patient's appetite and weight. 5. Mental Status - No hallucinations, delusions, or paranoia reported. - Plan: a. Continue to monitor for any changes in mental status. 6. marijuna use pt reports marijuana use plan: a. discussed the impact marijuana has on medication metabolism b. discussed the risks of marijuana use and mental illness. c. advised pt to d/c marijuana use. 05/24/2024 Major depressive disorder, recurrent, mild (ICD-10 - F33.0) 1. Major Depressive Disorder, recurrent, severe: - Continue Abilify 20 mg daily - Continue Auvelity as prescribed Plan: - Attempt to obtain prior authorization for Spravato (esketamine) treatment - Monitor progress in IOP and PHP program - Follow up in 1 month or sooner if needed 2. Insomnia: Plan: - Continue Zolpidem 10mg hs prn - Reevaluate sleep hygiene and consider non-pharmacologic al interventions 3. Attention Deficit Hyperactivity Disorder (ADHD): - Continue Qelbree 600 mg daily Plan: - Monitor response and side effects 4. Gastrointestinal symptoms (diarrhea, nausea, vomiting): Plan: - Recommend patient to visit urgent care or primary care physician for evaluation - Monitor symptoms and consider further workup if needed 5. Hypertension: - Continue current blood pressure medication as prescribed Plan: - Discuss with primary care physician regarding blood pressure fluctuations and possible relationship with marijuana use - Ensure blood pressure is well-controlled prior to initiating Spravato treatment - Encourage patient to monitor blood pressure regularly 6. Substance use (marijuana): Plan: - Assess frequency and impact on overall health, including blood pressure - Consider discussing with primary care physician or substance use counselor if needed 09/28/2024 Generalized anxiety disorder (ICD-10 - F41.1) 02/10/2024 Attention-defic it hyperactivity disorder, unspecified type (ICD-10 - F90.9) 1. Hypertension: - Patient reports fluctuating blood pressure, recently elevated. - Currently on Lisinopril, Amlodipine, and Clonidine. Plan: - Continue current medications. - Monitor blood pressure regularly and report to globe changer and retail selling floor leader. - Follow up in 1 month or sooner if blood pressure remains uncontrolled. 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 Plan: - Continue management under globe changer and retail selling floor leader. 3. Depression: - Patient reports decreased interest in activities and poor appetite. - Currently on Abilify 20 mg daily and Auvelity 45mg-105mg twice a day. Plan: - Continue current medications. - Consider counseling and cognitive-behavio ral therapy (CBT) for depression. - Follow up in 1 month to reassess symptoms. 4. ADHD: - Patient currently on Qelbree 400 mg daily. Plan: - Increase Qelbree to 600 mg daily (three 200 mg tablets). - Follow up in 1 month to assess response to increased dosage. 5. Insomnia: - Patient currently on Zolpidem 10 mg daily. Plan: - Decrease Zolpidem to 5 mg daily. - Add Quviviq at bedtime. - Consider CBT for insomnia. - Follow up in 1 month to assess sleep quality. 7. Medication review and management: - Patient is on multiple medications for various conditions. Plan: - Continue current medications as discussed during the visit. - Follow up in 1 month for medication review and management. 05/24/2024 Attention-defic it hyperactivity disorder, unspecified type (ICD-10 - F90.9) 1. Major Depressive Disorder, recurrent, severe: - Continue Abilify 20 mg daily - Continue Auvelity as prescribed Plan: - Attempt to obtain prior authorization for Spravato (esketamine) treatment - Monitor progress in IOP and PHP program - Follow up in 1 month or sooner if needed 2. Insomnia: Plan: - Continue Zolpidem 10mg hs prn - Reevaluate sleep hygiene and consider non-pharmacologic al interventions 3. Attention Deficit Hyperactivity Disorder (ADHD): - Continue Qelbree 600 mg daily Plan: - Monitor response and side effects 4. Gastrointestinal symptoms (diarrhea, nausea, vomiting): Plan: - Recommend patient to visit urgent care or primary care physician for evaluation - Monitor symptoms and consider further workup if needed 5. Hypertension: - Continue current blood pressure medication as prescribed Plan: - Discuss with primary care physician regarding blood pressure fluctuations and possible relationship with marijuana use - Ensure blood pressure is well-controlled prior to initiating Spravato treatment - Encourage patient to monitor blood pressure regularly 6. Substance use (marijuana): Plan: - Assess frequency and impact on overall health, including blood pressure - Consider discussing with primary care physician or substance use counselor if needed 08/03/2024 Major depressive disorder, recurrent, mild (ICD-10 - F33.0) cont abilify 20mg, auvelity 45mg-105mg bid, Change spravato 84mg to once weekly 1. Depression: - Patient reported improvement in depression symptoms. - Currently on Abilify 20 mg daily, Auvelity 45mg-105mg twice a day and participating in an IOP program through [facility]. Plan: - Continue with current treatment plan. - Monitor progress. 2. Anxiety: - Patient reported a decrease in anxiety levels. Plan: - Continue with current treatment plan, including Abilify 20 mg daily and participation in the IOP program through [facility]. - Monitor progress. 3. Sleep disturbances: - Patient reported improvement in sleep quality and duration. - Recently had a sleep study and is awaiting results. Plan: - Continue with current treatment plan, including Ambien as needed for sleep. - Follow up on sleep study results and adjust treatment as necessary. 4. Spravato treatment: - Patient has been receiving Spravato twice a week for the past 4 weeks and reported a stable mood between treatments. Plan: - Increase the Spravato dosage to 84 mg once a week. - Monitor progress and adjust the treatment plan as needed. 5. Financial stress: - Patient reported experiencing financial stress, which may be contributing to anxiety levels. Plan: - Encourage patient to explore resources and support systems to help manage financial stress. 6. ADHD: - Continue Qelbree 600mg daily Follow-up: - Schedule a follow-up appointment in approximately 6 weeks to evaluate the patient's progress and make any necessary adjustments to the treatment plan. 09/28/2024 Major depressive disorder, recurrent, mild (ICD-10 - F33.0) cont abilify 20mg, auvelity 45mg-105mg bid, spravato 84mg to once weekly Plasma concentrations and pharmacologic effects of aripiprazole may be increased by strong CYP2D6 inhibitors (eg, Auvelity Oral Tablet Extended Release 45-105 MG). An aripiprazole dose adjustment may be recommended. 08/03/2024 Attention-defic it hyperactivity disorder, unspecified type (ICD-10 - F90.9) 1. Depression: - Patient reported improvement in depression symptoms. - Currently on Abilify 20 mg daily, Auvelity 45mg-105mg twice a day and participating in an IOP program through [facility]. Plan: - Continue with current treatment plan. - Monitor progress. 2. Anxiety: - Patient reported a decrease in anxiety levels. Plan: - Continue with current treatment plan, including Abilify 20 mg daily and participation in the IOP program through [facility]. - Monitor progress. 3. Sleep disturbances: - Patient reported improvement in sleep quality and duration. - Recently had a sleep study and is awaiting results. Plan: - Continue with current treatment plan, including Ambien as needed for sleep. - Follow up on sleep study results and adjust treatment as necessary. 4. Spravato treatment: - Patient has been receiving Spravato twice a week for the past 4 weeks and reported a stable mood between treatments. Plan: - Increase the Spravato dosage to 84 mg once a week. - Monitor progress and adjust the treatment plan as needed. 5. Financial stress: - Patient reported experiencing financial stress, which may be contributing to anxiety levels. Plan: - Encourage patient to explore resources and support systems to help manage financial stress. 6. ADHD: - Continue Qelbree 600mg daily Follow-up: - Schedule a follow-up appointment in approximately 6 weeks to evaluate the patient's progress and make any necessary adjustments to the treatment plan. 05/24/2024 Marijuana use (ICD-10 - F12.90) 1. Major Depressive Disorder, recurrent, severe: - Continue Abilify 20 mg daily - Continue Auvelity as prescribed Plan: - Attempt to obtain prior authorization for Spravato (esketamine) treatment - Monitor progress in IOP and [facility] program - Follow up in 1 month or sooner if needed 2. Insomnia: Plan: - Continue Zolpidem 10mg hs prn - Reevaluate sleep hygiene and consider non-pharmacologic al interventions 3. Attention Deficit Hyperactivity Disorder (ADHD): - Continue Qelbree 600 mg daily Plan: - Monitor response and side effects 4. Gastrointestinal symptoms (diarrhea, nausea, vomiting): Plan: - Recommend patient to visit urgent care or primary care physician for evaluation - Monitor symptoms and consider further workup if needed 5. Hypertension: - Continue current blood pressure medication as prescribed Plan: - Discuss with primary care physician regarding blood pressure fluctuations and possible relationship with marijuana use - Ensure blood pressure is well-controlled prior to initiating Spravato treatment - Encourage patient to monitor blood pressure regularly 6. Substance use (marijuana): Plan: - Assess frequency and impact on overall health, including blood pressure - Consider discussing with primary care physician or substance use counselor if needed 09/28/2024 Attention-defic it hyperactivity disorder, unspecified type (ICD-10 - F90.9) 09/28/2024 Marijuana use (ICD-10 - F12.90) 08/03/2024 Marijuana use (ICD-10 - F12.90) 1. Depression: - Patient reported improvement in depression symptoms. - Currently on Abilify 20 mg daily, Auvelity 45mg-105mg twice a day and participating in an IOP program through [facility]. Plan: - Continue with current treatment plan. - Monitor progress. 2. Anxiety: - Patient reported a decrease in anxiety levels. Plan: - Continue with current treatment plan, including Abilify 20 mg daily and participation in the IOP program through [facility]. - Monitor progress. 3. Sleep disturbances: - Patient reported improvement in sleep quality and duration. - Recently had a sleep study and is awaiting results. Plan: - Continue with current treatment plan, including Ambien as needed for sleep. - Follow up on sleep study results and adjust treatment as necessary. 4. Spravato treatment: - Patient has been receiving Spravato twice a week for the past 4 weeks and reported a stable mood between treatments. Plan: - Increase the Spravato dosage to 84 mg once a week. - Monitor progress and adjust the treatment plan as needed. 5. Financial stress: - Patient reported experiencing financial stress, which may be contributing to anxiety levels. Plan: - Encourage patient to explore resources and support systems to help manage financial stress. 6. ADHD: - Continue Qelbree 600mg daily Follow-up: - Schedule a follow-up appointment in approximately 6 weeks to evaluate the patient's progress and make any necessary adjustments to the treatment plan. 09/28/2024 Major depressive disorder, recurrent severe without psychotic features (ICD9-CM - 296.33) 09/24/2024 Other 1. Depression - Patient rates her depression as 6/10. - Plan: a. Continue current antidepressant medication. b. Encourage regular physical activity and healthy sleep schedule. 2. Anxiety - Patient rates her anxiety as 8/10. - Plan: a. Consider initiating anxiolytic medication or adjusting current medication regimen. b. Encourage relaxation techniques like deep breathing exercises and mindfulness meditation. c. Refer for cognitive-behavi oral therapy (CBT) to address anxiety symptoms. 3. [...] gradual diet improvements. c. Consider referral to wholesale representative if concerns persist. 5. Medication Management - [...] mental health safety at each follow-up appointment. 07/20/2024 Other continue current treatment as prescribed by primary psychiatric care provider. 1. Depression - Patient rates her depression as 6/10. - Plan: Continue current treatment as prescribed by primary psychiatric care provider. 2. Anxiety - Patient rates her anxiety as 5/10. - Plan: Continue current treatment as prescribed by primary psychiatric care provider. 3. Sleep Disturbance - Patient reports approximately 6 hours of sleep per night. - Plan: Continue current treatment as prescribed by primary psychiatric care provider. 4. Suicidal Ideation, Self-Harm, and Homicidal Ideation - Patient explicitly denies thoughts of suicide, self-harm, or hurting others. - Plan: Continue current treatment Notify provider if suicidal thoughts occur or seek emergency services. 6. Psychosis - Patient explicitly denies experiencing hallucinations, delusions, or paranoia. - Plan: Continue current treatment Notify provider if psychosis occurs or seek emergency services. 7. Medications - Patient reports no recent medication changes. - Plan: a. Continue current medication regimen. b. Review medications during future appointments. 09/03/2024 Other 1. Depression - Patient rates depression as 4/10. - Currently participating in intensive outpatient program (IOP) at [facility] in [place], [place]. - Plan: a. Continue monitoring depression symptoms. b. Encourage regular attendance at outpatient therapy sessions. c. Reassess need for medication management in future visits. 2. Anxiety - Patient rates anxiety as 5/10. - Plan: a. Monitor anxiety symptoms closely. b. Encourage use of coping strategies learned in therapy. c. Consider medication management if symptoms worsen or don't improve with therapy. 3. Sleep - Patient reports 6-7 hours of sleep per night. - Plan: a. Encourage good sleep hygiene practices. b. Monitor sleep patterns and address disturbances in future visits. 4. Appetite - Patient reports appetite as okay. - Plan: a. Continue monitoring appetite. b. Address any concerns or changes in future visits. 5. Medication - Patient reports stopping Keppra. - Plan: a. Review reason for stopping Keppra. b. Discuss potential side effects or concerns with patient. c. Ensure appropriate follow-up and monitoring for medication changes. 6. Therapy - Transitioning from inpatient hospitalization to IOP at [facility] in [place], [place]. - Initially attended 5 days a week from 9:30 AM to 3:30 PM, now with Mondays and Fridays off. - Plan: a. Encourage regular attendance and engagement in therapeutic activities. b. Monitor progress and adjust treatment plan as needed. c. Assist in arranging therapy appointments post-discharge. 7. Safety - Patient denies thoughts of suicide, self-harm, or harm to others. - Patient denies experiencing hallucinations, delusions, or paranoia. - Plan: a. Continue assessing safety and mental status during future visits. b. Encourage open communication about concerning thoughts or behaviors. 07/13/2024 Other continue treatment as prescribed by primary psychiatric care provider. 1. Depression - Patient rates depression as 6/10. - No recent changes in medication. - Plan: a. Continue current antidepressant therapy. b. Monitor patient's mood and response to treatment. c. Encourage regular physical activity and social interactions. 2. Anxiety - Patient rates anxiety as 10. - No recent changes in medication. - Plan: a. Continue current anxiolytic therapy. b. Monitor anxiety levels and response to treatment. c. Encourage relaxation techniques like deep breathing and mindfulness. 3. Insomnia - Patient reports getting 4-6 hours of sleep per night. - Plan: a. Encourage good sleep hygiene, including consistent sleep schedule and relaxing bedtime routine. b. Consider evaluation for sleep disorders if sleep does not improve. 4. Substance Use - Patient reports decreased marijuana use, stating Used to be, it's not now and Not so much anymore when asked about daily use. - Plan: a. Encourage continued reduction in marijuana use. b. Monitor for potential withdrawal symptoms or impact on mental health. 5. Right Hip Pain - Patient reports new onset of right hip pain. - Orthopedic doctor informed and plans to obtain an x-ray. - Patient states they just have to go up there for the x-ray. - Plan: a. Follow up with orthopedic doctor regarding x-ray results and treatment recommendations. b. Encourage patient to report any worsening or persistent pain. 6. General Health - Patient reports improved appetite, stating It's a lot better. - No new physical complaints or medication changes. - Patient denies smoking, thoughts of suicide, self-harm, or hurting others. - Patient denies hallucinations, delusions, or paranoia. - Plan: a. Continue monitoring overall health and well-being. b. Encourage maintenance of balanced diet and regular exercise routine. Plan Of Treatment Next Appt Details Provider Name:Nicholas dominguez, 11/12/2024 03:30:00 PM, [address] [facility], [facility] [address], [place], [address], Insurance Providers Payer Name Payer Address Payer Phone Subscriber Number Group Number Insured Name Patient Relationship to Insured Coverage Start Date Coverage End Date [employer] Pos [address] [place] [address] [id number] SAM BOYD Spouse - patient is the spouse of the insured For Life - Medicare Supplement [address] [place] [phone] [id number] SAM BOYD Spouse - patient is the spouse of the insured Medications Administered Medication Instructions Date of Administration Dosage Notes Spravato (56 MG Dose) 07/02/2024 56 mg Spravato (84 MG Dose) 07/06/2024 84 mg Spravato (84 MG Dose) 07/13/2024 84 mg Spravato (84 MG Dose) 07/16/2024 84 mg Spravato (84 MG Dose) 07/20/2024 84 mg Spravato (84 MG Dose) 07/23/2024 84 mg Spravato (84 MG Dose) 07/27/2024 84 mg Spravato (84 MG Dose) 07/30/2024 84 mg Spravato (84 MG Dose) 08/06/2024 84 mg Spravato (84 MG Dose) 08/13/2024 84 mg Spravato (84 MG Dose) 08/20/2024 84 mg Spravato (84 MG Dose) 08/27/2024 84 mg Spravato (84 MG Dose) 09/03/2024 84 mg Spravato (84 MG Dose) 09/17/2024 84 mg Spravato (84 MG Dose) 09/24/2024 84 mg Medical (General) History Medical History History ICD Code Problems: Adult attention deficit hypera ctivity disorder Generalized anxiety disorder Long-term current use of drug therapy Moderate recurrent major depression Primary insomnia Recurrent major depressive episodes, mil d Severe recurrent major depression withou t psychotic features , Surgical History Surgery Date(Month/Year) Oophorectomy (63185) Any surgical history 08/18/1991 Other 08/18/2015 Any surgical history 12/26/1996 Any surgical history 01/17/2022 Hysterectomy (34210) 05/18/2002 Any surgical history 05/18/2016 Any surgical history 06/01/2002
--- OUTSIDE RECORDS SUMMARY | 2024-09-30 15:41 | XMS_ITS | Continuity of Care Document ---
Author Name [facility] Organization [facility] Care Team Providers Care Scouring Pads Supervisor Name Role Phone [facility] Unavailable Unavailable Problems Combined list of problems from Department of Defense and Veterans Affairs facilities. It does not include entries that were removed or entered in error. Problem Status Onset Date Problem Type Date of Resolution Comments Source major depression chronic Active Condition DoD Hysterectomy Active Condition DoD urinary tract infection Inactive Condition FINISHED CIPRO DoD microalbuminuria Active Condition DoD proteinuria Active Condition DoD Physical Examination Inactive Condition DoD Murmurs Active Condition DoD hearing loss Active Condition DoD Outpatient Physician Consultation Active Condition DoD visit for: screening exam for malignant neoplasm cervix Inactive Condition DoD routine pelvic exam Inactive Condition D oD nicotine-related disorders Inactive Condition DoD Mammogram Screening Inactive Condition D oD hyperlipidemia Active Condition DoD prediabetes Active Condition DoD Parent Education: Drug Abuse Active Condition DoD fibromyalgia Active Condition DoD abnormal electrocardiogram Active Condition [facility] ACP Staging Stage 2 Hypertension: Greater Than Or = 160/100 Active Condition DoD essential hypertriglyceridemia Active Condition DoD esophagitis chronic reflux Active Condition DoD urinary symptoms Active Condition [facility] visit for: laboratory Active Condition [facility] Patient Counseling: Active Condition Do D taking medication for a long time analgesics opiates Active Condition DoD edema Active Condition DoD conditions influencing health status Active Condition [facility] visit for: administrative purpose Inactive Condition Do D delirium [Sx] Active Condition [facility] Laboratory Studies Inactive Condition Do D visit for: follow-up exam Active Condition [facility] anemia Active Condition DoD depression Active Condition DoD arthritis Active Condition [facility] visit for: issue repeat prescription for medication Inactive Condition DoD menopause Active Condition D/W pt man y hormones already taken prescribed by Pain Management so will not renew Premarin script. If feels hot flashes d/w this provider so may readjust the estrogen, premarin and testosterone doses plus DHEA already taken. CMP req due to many pain and hormone med use, fortunately many thru skin absorption. Pt explains hard lab stick; uncertain if/when lab would be drawn. Ca need postmenpause discussed. Lit given Boning Up on Ca with Ca food sources. DoD Cervical Pap Smear Active Condition DoD routine gynecological exam with cervical pap smear Inactive Condition Hyst with cervical stump requiring pap DoD visit for: screening exam malignant neoplasm breast Active Condition appt made fo r well woman exam. May require baseline ultrasound for fibrocystic breast changes. DoD numbness (hypesthesia) Active Condition persistent numbness of the right 5th finger. Referred to Neuro. DoD cough Active Condition likely rel ated to tobacco use. recent CXR from [facility] normal. Will check PFT to eval for COPD and refill Albuterol. DoD arthralgias multiple sites Active Condition normal labs 2 years ago. Will recheck now. DoD postsurgical ovarian failure Active Condition started on Premarin after oophorectomy. However also taking several hormone gels and medications per Pain Management. Will refer to Endocrinology to review regimen. DoD nicotine dependence Active Condition discussed risk/benefits of Chantix. Plans to start tobacco cessation class and will discuss use of Chantix with her Psychiatrist. DoD feeling weak Active Condition DoD shortness of breath Active Condition Do D female pelvic pain Active Condition P t with h/o chronic pelvic pain followed by Dr. Arteaga. will defer managemnt of pain control to Dr. Arteaga. Advised pt that only Dr. Arteaga should refill pain meds. Will call next week to clarify plan. DoD Edema Active Condition exam unremarkable. Will perform screening labs and continue current regimen. DoD headache Inactive Condition DoD nausea with vomiting Inactive Condition DoD parent-child problem Active Condition D oD other interpersonal problem Active Condition DoD Guidance: Concerns About Tobacco Use Inactive Condition discussed options to quit smoking to include Chantix. However with multiple meds this may not be an option. Advised to discuss with her Psychiatrist. F/U PRN. DoD conjunctivitis chronic allergic Active Condition Advised no rubbing of eyes and to use cold compresses PRN DoD corneal edema secondary Active Condition DoD essential hypertension benign Active Condition controlled. DoD Patient Counseling: Inquiry & Counseling Inactive Condition DoD chronic pain syndrome Active Condition DoD chowdhury of right forearm Active Condition DoD visit for: refer patient without exam or treatment Inactive Condition DoD visit for: issue repeat prescription Inactive Condition DoD nephrolithiasis Active Condition DoD esophageal reflux Active Condition un controlled with switch to Prilosec. Will switch to Nexium and if uncontrolled will give script to Prevacid. Pt also with c/o dysphagia and referred to GI. DoD sinusitis Inactive Condition DoD allergic rhinitis Active Condition we ll controlled with Nasonex. DoD nephrolithiasis left Active Condition D oD Costovertebral Angle Tenderness Inactive Condition DoD pain during urination (dysuria) Inactive Condition DoD hypertension systolic essential Active Condition 34 y/o pt who w as hospitalized at [facility] from 02/17/05 to 02/19/05 for HTN needsf/u with Dr Baltazar Diaz tomorrow . Dr Diaz's phone is [phone]. [address] [place] [address]. [place]. Please authorize all visits,tests,candice tments,procedures and f/u visits deemed necessary by specialist forthe evaluation and treatment of this referral. ORDER WAS DONE IN [facility] BY ALFREDO FULLER. DoD Patient Education - Medication Adverse Reactions Active Condition burning to nose from afrin DoD cerumen impaction - left ear Inactive Condition DoD upper respiratory infection Inactive Condition use otc coriced en HBPsend to audiology DoD Follow-up examination following other surgery Inactive Condition DoD skin abscess Active Condition DoD visit for: postsurgical exam Inactive Condition DoD skin abscess of trunk Active Condition sent to surg clinic to repack wound and f/u with surgeon in am DoD contusion with intact skin surface Inactive Condition re assurance , if pain ,nausea and vomitting get worse, go to er. DoD contusion with intact skin surface - abdominal wall Inactive Condition DoD superficial injury - abrasion on trunk Inactive Condition RX FOR TET NUS GIVEN. 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 Will f/u as indicated per x-ray results. SBE instructions reviewed encouraged. XMG q yr advised due to reported fh/o brca in sister age 36. [facility] reminder card given. DoD taking female hormones for postmenopausal HRT Active Condition Do D essential hypertension Active Condition DoD Common migraine, without mention of intractable migraine Active Condition DoD Unspecified essential hypertension Active Condition DoD backache Active Condition DoD lumbago Active Condition Suspect mechanical. Patient unable to DoD menopause symptomatic Active Condition Would not use HRT in this high risk patient. Encouraged to wait for resolution. DoD essential hypertension malignant Active Condition DoD diarrhea Active Condition DoD essential hypertension accelerated Active Condition DoD Combined Systolic And Diastolic Elevation Active Condition continue to have elevated BP on current meds.increase norvasc dose to 10mg.while awaiting cardiology consult. DoD migraine headache Active Condition wi ll refer to neurology per Pain managment recommendations. DoD hypertension systemic Active Condition DoD headache syndromes Active Condition S uspect migraines triggered by poorly controlled blood pressure. Unable to take NSAIDs and being evaluated by distribution transformer assembler this week. I would not use vasoconstrictors in this patient with poorly controlled blood pressure. History of possible narcotic abuse in the past( complete chart not available at this time). I encouraged her to get her blood pressure under control and use Tylenol for now. DoD attention-deficit / hyperactivity disorder Active Condition Do D peptic ulcer Active Condition DoD Medications Combined list of outpatient medications from Department of Defense and Veterans Affairs facilities.Medications provided include 1) outpatient medications from the last 15 months, and 2) patient-reported medications. Medication Details Route Status Patient Instructions Prescription Expires Prescription Number Last Dispense Date Ordering Provider Order Date Order Qty Source AJOVY SYRINGE (Stykyezum -vfrm), 225 MG/1.5, SYRINGE, SUBCUT, Hover 3D, 1.5 ml SYRINGE Active [id number] 2023 1.5 Pharmac y Data Transac tion Service Facilit y ALBUTEROL SULFATE HFA (albuterol sulfate), 90 MCG, HFA AER AD, INHALATION, LUPIN PHARMACEU, 8.5 g CANISTER Active [id number] 2023 8.5 Pharmac y Data Transac tion Service Facilit y AMLODIPINE BESYLATE (amlodipine besylate), 10 MG, TABLET, ORAL, LUPIN PHARMACEU, 1000 ea. BOTTLE Active [id number] 4 2023 30 Pharmac y Data Transac tion Service Facilit y AMLODIPINE BESYLATE (amlodipine besylate), 10 MG, TABLET, ORAL, LUPIN PHARMACEU, 1000 ea. BOTTLE Active [id number] 4 2023 30 Pharmac y Data Transac tion Service Facilit y AMOXICILLIN (amoxicilli n), 875 MG, TABLET, ORAL, [facility]/ IKMA, 100 ea. BOTTLE Active [id number] 4 2023 14 Pharmac y Data Transac tion Service Facilit y ARIPIPRAZOL E (aripiprazo le), 20 MG, TABLET, ORAL, iCeuticaANTA PHARMA L, 30 ea. BOTTLE Cancele d [id number] : 2023 0 Pharmac y Data Transac tion Service Facilit y ARIPIPRAZOL E (aripiprazo le), 20 MG, TABLET, ORAL, [facility] [facility], 500 ea. BOTTLE Active [id number] 2023 30 Pharmac y Data Transac tion Service Facilit y ARIPIPRAZOL E (aripiprazo le), 20 MG, TABLET, ORAL, AUROBINDO PHARM, 30 ea. BOTTLE Cancele d [id number] : 2023 0 Pharmac y Data Transac tion Service Facilit y AUVELITY (dextrometh orphan HBr/bupropi on HCl), 45MG-105MG, TAB IR ER, ORAL, AXSOME THERAPEU, 30 ea. BOTTLE Active [id number] 2023 60 Pharmac y Data Transac tion Service Facilit y Cefpodoxime Proxetil (Cefpodoxim e Proxetil), 200mg, Tablet, Oral, Sandoz, 20 Ea. Bottle Active [id number] 2023 20 Pharmac y Data Transac tion Service Facilit y CEFUROXIME (CEFUROXIME AXETIL), 250 MG, TABLET, ORAL, AUROBINDO PHARM, 60 ea. BOTTLE Active [id number] 2023 20 Pharmac y Data Transac tion Service Facilit y CIPROFLOXAC IN HCL (CIPROFLOXA SAIDA HCL), 500MG, TABLET, ORAL, PACK PHARMACEUT, 100 ea. BOTTLE Active [id number] 2023 10 Pharmac y Data Transac tion Service Facilit y CLONIDINE HCL (clonidine HCl), 0.1 MG, TABLET, ORAL, [employer] 1000 ea. BOTTLE Active [id number] 4 2023 60 Pharmac y Data Transac tion Service Facilit y CLONIDINE HCL (clonidine HCl), 0.1 MG, TABLET, ORAL, [employer] 1000 ea. BOTTLE Active [id number] 4 2023 60 Pharmac y Data Transac tion Service Facilit y ESTRADIOL (estradiol) , 0.01 %, CREAM/APPL, VAGINAL, PADAGIS, 42.5 g TUBE Cancele d [id number] : 2023 0 Pharmac y Data Transac tion Service Facilit y GAVILYTE-C (PEG 3350/NA SULF,BICARB ,CL/KCL), 240-22.72G, SOLN RECON, ORAL, GAVIS PHARMACEU, 4000 ml BOTTLE Active [id number] 2023 4000 Pharmac y Data Transac tion Service Facilit y HYDROCODONE -ACETAMINOP HEN (HYDROCODON E/ACETAMINO PHEN), 10MG-325MG, TABLET, ORAL, MALLINCKROD T PH, 500 ea. BOTTLE Active [id number] 2023 112 Pharmac y Data Transac tion Service Facilit y HYDROCODONE -ACETAMINOP HEN (HYDROCODON E/ACETAMINO PHEN), 7.5-325MG, TABLET, ORAL, MALLINCKROD T PH, 500 ea. BOTTLE Active [id number] 2023 100 Pharmac y Data Transac tion Service Facilit y JARDIANCE (EMPAGLIFLO ZIN), 10 MG, TABLET, ORAL, BOEHRINGER ING., 30 ea. BOTTLE Active [id number] 2023 30 Pharmac y Data Transac tion Service Facilit y LATANOPROST (LATANOPROS T), 0.005%, DROPS, OPHTHALMIC, GALLEGOS PHARMACE, 2.5 ml DROP BTL Active [id number] 2023 2.5 Pharmac y Data Transac tion Service Facilit y LINZESS (LINACLOTID E), 290 MCG, CAPSULE, ORAL, FOREST PHARMACE, 30 ea. BOTTLE Active [id number] 4 2023 30 Pharmac y Data Transac tion Service Facilit y LOTEMAX SM (lotepredno l etabonate), 0.38 %, DROPS GEL, OPHTHALMIC, BAUSCH & LOMB I, 5 g DROP BTL Cancele d [id number] : 2023 0 Pharmac y Data Transac tion Service Facilit y METFORMIN HCL ER (metformin HCl), 500 MG, TAB ER 24H, ORAL, GRANULES PHARMA, 500 ea. BOTTLE Active [id number] 4 2023 120 Pharmac y Data Transac tion Service Facilit y ONDANSETRON ODT (ONDANSETRO N), 4MG, TAB RAPDIS, ORAL, [employer] PHARMA, 30 ea. BLIST PACK Active [id number] 2023 15 Pharmac y Data Transac tion Service Facilit y ONETOUCH ULTRA TEST STRIP (blood sugar diagnostic) , STRIP, [employer], 25 ea. BOX Active [id number] 4 2023 25 Pharmac y Data Transac tion Service Facilit y PREDNISOLON E ACETATE (PREDNISOLO NE ACETATE), 1%, DROPS SUSP, OPHTHALMIC, GALLEGOS PHARM, 5 ml DROP BTL Active [id number] 2023 5 Pharmac y Data Transac tion Service Facilit y PROPRANOLOL HCL (PROPRANOLO L HCL), 120 MG, CAP SA 24H, ORAL, BRECKENRIDG E, 100 ea. BOTTLE Cancele d [id number] : 2023 0 Pharmac y Data Transac tion Service Facilit y PROPRANOLOL HCL ER (propranolo l HCl), 120 MG, CAP SA 24H, ORAL, [employer], 100 ea. BOTTLE Active [id number] 2023 30 Pharmac y Data Transac tion Service Facilit y ROSUVASTATI N CALCIUM (rosuvastat in calcium), 10 MG, TABLET, ORAL, [employer] PHARMA, 90 ea. BOTTLE Active [id number] 4 2023 30 Pharmac y Data Transac tion Service Facilit y SUCRALFATE (SUCRALFATE ), 1G, TABLET, ORAL, [facility], 500 ea. BOTTLE Cancele d [id number] : 2023 0 Pharmac y Data Transac tion Service Facilit y URIBEL (methenamin e/methylene blue/sod phos/p.sali cylate/hyos cyamine), 118-10-36, CAPSULE, ORAL, [employer]., 100 ea. BOTTLE Active [id number] 2023 12 Pharmac y Data Transac tion Service Facilit y ZOLPIDEM TARTRATE (ZOLPIDEM TARTRATE), 10MG, TABLET, ORAL, AUROBINDO PHARM, 100 ea. BOTTLE Active [id number] 4 2023 30 Pharmac y Data Transac tion Service Facilit y ZOLPIDEM TARTRATE (ZOLPIDEM TARTRATE), 10MG, TABLET, ORAL, AUROBINDO PHARM, 100 ea. BOTTLE Cancele d [id number] : 2023 0 Pharmac y Data Transac tion Service Facilit y ZOLPIDEM TARTRATE (ZOLPIDEM TARTRATE), 10MG, TABLET, ORAL, AUROBINDO PHARM, 100 ea. BOTTLE Active [id number] 2023 30 Pharmac y Data Transac tion Service Facilit y ZOLPIDEM TARTRATE (ZOLPIDEM TARTRATE), 10MG, TABLET, ORAL, AUROBINDO PHARM, 100 ea. BOTTLE Active [id number] 4 2023 30 Pharmac y Data Transac tion Service Facilit y Allergies, Adverse Reactions, Alerts Combined list of allergies from Department of Defense and Veterans Affairs facilities. It does not include entries that were removed or entered in error. Substance Category Reaction Severity Reaction type Status Date Reported Comments Source COMPAZINE Drug allergy (disorder ) Unknown active 3 [place] [address] HALDOL (HALOPERIDOL LACTATE) Drug allergy (disorder ) Rash or Itch active [address] [place] [address] IMITREX Drug allergy (disorder ) Unknown active [address] [place] [address] METOCLOPRAMIDE HCL Drug allergy (disorder ) Unknown active [address] [place] [address] SULFA-DRUGS Drug allergy (disorder ) Unknown active [address] [place] [address] TORADOL (KETOROLAC TROMETHAMINE) Drug allergy (disorder ) Stomach Ulcers active [address] [place] [address] Immunizations Combined list of available immunizations from the Department of Defense and Veterans Affairs facilities. 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 purified surface antigen)-reti red CODE 2 2009 Unknown, Provider 15 Transcribed (TRS) complet ed influenza virus vaccine, split virus (incl. purified surface antigen)- retired CODE DoD influenza virus vaccine, split virus (incl. purified surface antigen)-reti red CODE 1 2005 Unknown, Provider [id number] 15 Sanofi Pasteur ([facility]) complet ed influenza virus vaccine, split virus (incl. purified surface antigen)- retired CODE DoD tetanus and diphtheria toxoids, adsorbed, preservative free, for adult use (2 Lf of tetanus toxoid and 2 Lf of diphtheria toxoid) 1 2004 Unknown, Provider [id number] 09 Sanofi Pasteur ([facility]) complet ed tetanus and diphtheri a toxoids, adsorbed, preservat willy free, for adult use (2 Lf of tetanus toxoid and 2 Lf of diphtheri a toxoid) DoD Encounters Combined list of: 1) Encounters from Department of Veterans Affairs facilities going backup to the last 18 months, not all VA inpatient encounters are included; 2) Encounters from the Department of Defense facilities going backup to 280 months. Location Location Details Encounter Type Encounter Number Reason For Visit Attending Provider ADM Date DC Date Status Disposition Source [employer]([facility]) OUTPATIENT [id number] Hands swollen and area of kindney s hurting JESSICA BARFIELD 07/21 Released w/o Limitations [employer] [facility] [employer] [facility] [id number] h/a,CHELSEA Vega 12/21 Immediate Referral [employer] [facility] [employer] [facility] OUT[facility]IENT [id number] migrain e, bp elevate d EVER_OSMAN WOODSON 01/21 Released w/o Limitations [employer] [facility] [facility] OUTPATIENT [id number] EDGAR CASTRO 01/23 Immediate Referral [employer] [facility] [employer]([facility]) OUTPATIENT [id number] blood pressur e YOUSIF-CATARINO CAPELLAN S 01/30 Released w/o Limitations [employer](F [facility] Contrac t) [employer]([facility]) OUTPATIENT [id number] f/u htn, review labs, review meds SHANTELL BEGUM A 02/06 Immediate Referral [employer] [facility]) [employer]([facility]) OUTPATIENT [id number] f/u on BP per dr kilo BEGUM, [facility] A 02/07 Released w/o Limitations [employer](F am[facility] Practic e Contrac t) [employer]([facility]) OUTPATIENT [id number] HTN f/u per Dr Kilo BEGUM, [facility] A 02/13 Released w/o Limitations [employer](F amily Practic e Contrac t) [employer]([facility]) OUTPATIENT [id number] migrain e, elevate d BP RAE TRUJILLO 04/02 Immediate Referral [employer]([facility]) [employer]([facility]) OUTPATIENT [id number] follow- up,BP,r efill,t est leonor DODD-CATARINO CAPELLAN S 05/15 Released w/o Limitations [employer](F amily Practic e Contrac t) [employer]([facility]) OUTPATIENT [id number] headach e GV_OSMAN WOODSON 05/25 Released w/o Limitations [employer] [facility] [employer]([facility]) OUTPATIENT [id number] back pain , headach e YOUSIF-CATARINO CAPELLAN S 06/01 Released w/o Limitations [employer](F am[facility] Practic e Contrac t) [employer] [facility] [id number] back pain- migrain e Eleazar KRISHNAN 06/04 Released w/o Limitations [employer]([facility]) [employer]([facility]) OUTPATIENT [id number] headeac james LUZLAP CATARINO GONZALEZ S 06/12 Released w/o Limitations [employer](F am[facility] Practic e Contrac t) [employer] [facility] OUT[facility]IENT [id number] MADAI Carter 06/18 Released w/o Limitations [employer] [facility] [employer] [facility]) OUTPATIENT [id number] Fill Premari n and B/P check SHASHANK HOLBROOK A 06/18 Released w/o Limitations [employer](G [facility]o [facility]) [employer] [facility] OUTPATIENT [id number] head/ne ck pain ASHLEY, CHELSEA M 06/21 Released w/o Limitations [employer] [facility] [employer] [facility] OUTPATIENT [id number] abd pain ASHLEY, CHELSEA M 06/29 Released w/o Limitations [employer] [facility] [employer] [id number] leg pain DANYEL HASSAN 07/02 Released w/o Limitations [employer]([facility]) [employer] OUTPATIENT [id number] Possibl e right breast nodule KAMALJIT GARCIA 07/17 Released w/o Limitations [employer](S urgical Clinic) [employer] [facility] OUTPATIENT [id number] elevate d bp RAE TRUJILLO 09/05 Left Against Medical Advice [employer] [facility]) [employer]([facility] amily Practice) OUTPATIENT [id number] f/u htn,glynn oing abd discomf ort Eleazar KRISHNAN 09/06 Released w/o Limitations [employer]([facility]) [employer] [facility] OUTPATIENT [id number] stomach pain/si de pain EDGAR CASTRO 09/09 Released w/o Limitations [employer]) [employer]([facility] amil Practice) OUTPATIENT [id number] f/u abd discomf ort post u/s ARIELLA, Eleazar WOODY 09/12 Released w/o Limitations [employer]([facility]) [employer]([facility] amil Practice) OUTPATIENT [id number] fell on sunshine, EMERALD Salcedo 09/25 Released w/o Limitations [employer]([facility]) [employer] OUTPATIENT [id number] abdomin al pain in the right upper belly (RUQ) KAMALJIT GARCIA 09/25 Released w/o Limitations [employer](S urgical Clinic) [employer]([facility]) OUTPATIENT [id number] SHANTELL BEGUM 09/25 Released w/o Limitations [employer](F amily Practic e Contrac t) [employer]([facility] amil Practice) OUTPATIENT [id number] f/u from [facility] Eleazar KRISHNAN 10/10 Released w/o Limitations [employer]([facility]) [employer] OUTPATIENT [id number] KAMALJIT GARCIA 10/11 Released w/o Limitations [employer](S urgical Clinic) [employer] OUTPATIENT [id number] follow- up surgery KAMALJIT GARCIA 10/25 Released w/o Limitations [employer](S [facility]) [employer] [facility] OUTPATIENT [id number] migrain e GV_OSMAN WOODSON 12/07 Released w/o Limitations [employer]) [employer]([facility] amil Practice) OUTPATIENT [id number] sinus infecti on ARIELLA, Eleazar MCKAY 01/02 Released w/o Limitations [employer]([facility]) [employer] [facility](Aud [facility]ology Clinic) OUTPATIENT [id number] removal FB ANGEL DELACRUZ 01/02 Released w/o Limitations [employer](A udiolog y Clinic) [employer] [facility] OUTPATIENT [id number] Migrain e RAE TRUJILLO 01/09 Immediate Referral [employer] [facility]) [employer]([facility]) OUTPATIENT [id number] Burning in sinuses RAE TRUJILLO Mansi 01/13 Released w/o Limitations [employer] [employer]([facility]) OUTPATIENT [id number] f/u ER/HTN Crisis SMITHSHAGUFTA ORTA C 02/06 Sick at Home/Quarter s [employer]([facility] [employer]([facility]) OUTPATIENT [id number] h/a, high blood pressur e, heart palpata tions SAMIRA CLARK 02/21 Released w/o Limitations [employer] [employer]([facility]) OUTPATIENT [id number] HTN SMITHSHAGUFTA ORTA C 02/26 Released w/o Limitations [employer]([facility] [employer]([facility]) OUTPATIENT [id number] f/u on BP SHAGUFTA SMITH 03/25 Released with Work/Duty Limitations [employer]([facility] [employer]([facility]) OUTPATIENT [id number] f/u UTI SHAGUFTA SMITH C 04/03 Released with Work/Duty Limitations [employer] [employer]([facility]) OUTPATIENT [id number] abd pain NUNU FULLER 04/09 Released w/o Limitations [employer]([facility] [employer]([facility]) OUTPATIENT [id number] pt still have prb.or related kidney stone EMERALD ABRAMS 05/10 Released w/o Limitations [employer] [employer]([facility]) OUTPATIENT [id number] f/u ct/back pain NUNU FULLER S 05/24 Released w/o Limitations [employer]([facility] [employer]([facility]) TELE CONSULT [id number] Headach e, double vision, elevate d B/P GIROTTO, DANYEL R 06/04 [employer]([facility] [employer]([facility]) OUTPATIENT [id number] Rx renewal NUNU FULLER S 06/10 Released w/o Limitations [employer] [employer] OUTPATIENT [id number] back pain NUNU FULLER S 06/27 Released w/o Limitations [employer]) [employer]([facility]) OUTPATIENT [id number] med refill NUNU FULLER S 07/10 Released w/o Limitations [employer]([facility] [employer] OUTPATIENT [id number] Rx renewal SAMIRA CLARK D 08/06 Released w/o Limitations [employer]([facility] Pract[facility] e Contrac t) [employer] OUT[facility] [id number] follow up ED AGGARWAL 04/17 Released w/o Limitations [employer]([facility]) [employer] TELE CONSULT [id number] MEDS MARISSA GAMBOA 09/22 [employer]([facility]) [employer] OUTPATIENT [id number] f/u HTN RADDEN, SHAQUILLE D 10/10 Released w/o Limitations [employer]([facility]) [employer] TELE CONSULT [id number] pt scratch ed her eye and is swollen , and painful ., MARISSA GAMBOA 10/13 [employer]([facility]) [employer]) OUTPATIENT [id number] poked left eye KAMALJIT SEXTON 10/14 Released w/o Limitations [employer](O ptometr y Clinic) [employer]([facility] OUTPATIENT [id number] follow up for corneal abrasio n KAMALJIT SEXTON 10/16 Released w/o Limitations [employer]([facility] ptometr y Clinic) [facility]) TELE CONSULT [id number] referra l was denied for pain managem ent; need referra l retroac tive for an appt MARISSA GAMBOA R 10/20 [facility](F amily Practic e Blue) [facility]) TELE CONSULT [id number] REFERRA L FOR MIGRAIN ES NEMESIO SHAQUILLE Deann 10/28 [facility] Pract[facility] Blue) [facility]) TELE CONSULT [id number] MED REFILL SHAQUILLE HERR Deann 10/30 [facility] Practic e Blue) [facility]) TELE CONSULT [id number] pt use to be on a blood pressur e med before it was switche d; that one worked NEMESIO SHAQUILLE Deann 12/16 [facility](F [facility] Pract[facility] e Blue[facility]) OUTPATIENT [id number] ER f/u appt SHAQUILLE HERR Deann 12/18 Released w/o Limitations [facility] Pract[facility] Blue) [facility]) TELE CONSULT [id number] migrane s- pt needs injecti on and er would not give her injecti on BEE MARISSA R 01/31 [facility] Pract[facility] Blue) [facility](Soc ial Work [facility]) OUTPATIENT [id number] [facility] EMERALD ART R 02/06 Released w/o Limitations [facility](S ocial Work [facility]) [facility]) TELE CONSULT [id number] pt. needs meds. that were perscri bed by dif. doc., but the doc. no longer .... ANTELMOUMER SHAQUILLE Deann 02/13 [facility](F amily Practic e Blue) [facility]) TELE CONSULT [id number] referra l for chavo walkin for vomitin g and diarrhe a; also pt needs med renewal s ED AGGARWAL 05/14 [facility](F amily Practic e Blue) [facility]gan [facility]) TELE CONSULT [id number] pt has appt 06/10, needs one sooner for physch meds f/u, needs appt for 06/01 RADDEN, SHAQUILLE D 05/20 [facility](F amily Practic e Blue) [facility]gan [facility]) TELE CONSULT [id number] pt calling to speak with NEMESIO, pt's bloodpr essure is high,he adache RADDEN, SHAQUILLE D 06/10 [facility](F amily Practic e Blue) [facility]gan [facility]) TELE CONSULT [id number] in need of f/u appt,la bs and HTN meds RADDEN, SHAQUILLE D 06/15 [facility](F amily Practic e Blue) [facility] Medical [facility](Fam megan Practice Blue) TELE CONSULT [id number] pt calling kulwant TOUREATON E was not there when she went to tile picker refills RADDEN, SHAQUILLE D 06/23 [facility](F amily Practic e Blue) [facility]) OUTPATIENT [id number] f/u polypha rmacy;p ain mgmt RADDEN, SHAQUILLE D 07/03 Released w/o Limitations [facility] Practic e Blue) [facility](Fam megan Practice Blue) TELE CONSULT [id number] DR. ARTEAGA trying to contact pt's pcm, kulwant weiss pt's medicat ion RADDEN, SHAQUILLE D 07/06 [facility](F amily Practic e Blue) [facility]) TELE CONSULT [id number] pt needs f/u to er visit 07/28 for high blood pressur e and migrain es LUCA, VESTA 07/29 [facility](F amily Practic e Blue) [facility] Medical [facility](Fam megan Practice Blue) TELE CONSULT [id number] med refill for aldacto ne and metopro lol- on back ordered RADDEN, SHAQUILLE D 09/01 [facility](F amily Practic e Blue) [facility]) TELE CONSULT [id number] pt has had excessi ve hot and colds sweats, SOB, and weaknes s past 2wks SHAQUILLE HERR D 11/18 [facility](F amily Practic e Blue) [facility] OUTPATIENT [id number] f/u SHAQUILLE HERR D 11/30 Released w/o Limitations [facility](F am[facility] Practic e Blue) [facility]) OUTPATIENT [id number] HELEN KING D 12/08 Released w/o Limitations [facility](G yn Clinic) [facility]) TELE CONSULT [id number] Needs referra l to walk in clinic for all over swellin g and joint pain MARISSA GAMBOA 12/09 [facility](F amily Practic e Blue) [facility]) TELE CONSULT [id number] Med refill GONSALO LARSON 02/24 [facility](F amily Practic e Blue) [facility]) TELE CONSULT [id number] needs meds refills BLANCA CHARLES 10/13 [facility](F amily Practic e Red) [facility]) TELE CONSULT [id number] Med refills BLANCA CHARLES 12/05 [facility](F amily Practic e Blue) [facility]) OUTPATIENT [id number] fu meds BLANCA CHARLES 12/15 Released w/o Limitations [facility](F amily Practic e Red) [facility]) TELE CONSULT [id number] anemia off base labs-- please repeat BLANCA CHARLES 02/22 [facility](F amily Practic e Red) [facility]) TELE CONSULT [id number] Elevate d WBCs BLANCA CHARLES 03/17 [facility](F amily Practic e Red) [facility]) TELE CONSULT [id number] pain managem ent referra MARISSA Cadet R 03/23 [facility](F amily Practic e Red) [facility] Blue) TELE CONSULT [id number] Pt needs f/u appt due to abn labs from [facility] ED visit BLANCA CHARLES 05/05 [facility](F amily Practic e Blue) [facility] Practice Red) TELE CONSULT [id number] ED visit for migrain yamilet US, JOHN PAUL 06/12 [facility](F amily Practic e Red) [facility] Red) TELE CONSULT [id number] referra alnodra herron doc in box for severe migrain MARISSA Gonzalez R 06/12 [facility](F amily Practic e Red) [facility] Blue) OUTPATIENT [id number] Slurred speech, weaknes s after visit to ED MAGEN, [place] 06/12 Released w/o Limitations [facility](F amily Practic e Blue) [facility]) OUTPATIENT [id number] Pt missed appt and recentl y dc'ed for htn RADUMER, SHAQUILLE D 06/22 Released w/o Limitations [facility](F amily Practic e Blue) [facility] Red) TELE CONSULT [id number] Neurolo gy carlos alberto US, JOHN PAUL 06/22 [facility](F amily Practic e Red) [facility]) TELE CONSULT [id number] Desires refill of Procard ia XL 60mg and Tenormi n 50mg RADDEN, SHAQUILLE D 07/17 [facility](F amily Practic e Blue) [facility] TELE CONSULT [id number] SINCERE Tellez 07/20 [facility]agem ent [facility]) [facility]gan [facility] Blue) OUTPATIENT [id number] f/u HTN; Migrain es RADDEN, SHAQUILLE D 07/26 Released w/o Limitations [facility](F amily Practic e Blue) [facility] TELE CONSULT [id number] Admit to case managem ent/car e coordin ation care plan SINCERE GUILLEN 07/26 [employer]) [employer]) TELE CONSULT [id number] Pt needs pain medicat ion RADDEN, SHAQUILLE D 08/09 [employer]([facility] Practic [facility] Blue) [employer]([facility]) TELE CONSULT [id number] Desires refill of Atenolo l,Adala t and Fentany l patch CERVA, PAULINO M 08/15 [employer]([facility] Practic e Blue) [facility]) TELE CONSULT [id number] 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 JOHN PAUL Greene 08/17 [employer](F amily Practic e Red) [facility] Blue) TELE CONSULT [id number] Pt desires refill of Oxycodo ne and Fentany l patch RADDEN, SHAQUILLE D 08/21 [facility](F amily Practic e Blue) [facility]([place] [facility]) OUTPATIENT [id number] monthly acuity note SINCERE GUILLEN 08/22 Released w/o Limitations [facility] ) [facility] TELE CONSULT [id number] update SINCERE GUILLEN 08/22 [facility]agem [facility]) [facility]) TELE CONSULT [id number] update SINCERE GUILLEN 09/11 [employer](F [facility]ily Practic e Red) [facility]) TELE CONSULT [id number] med refill - pt out today DENG SOLANO 09/12 [facility](F amily Practic e Blue) [facility]([place] [facility]) OUTPATIENT [id number] monthly acuity note SINCERE GUILLEN 09/19 Released w/o Limitations [facility] ) [facility]) TELE CONSULT [id number] med refill and referra l or appt DENG SOLANO 10/05 [facility](F amily Practic e Blue) [facility] Practice Blue) TELE CONSULT [id number] Meds/Ca ll-back DENG SOLANO 10/06 [facility](F amily Practic e Blue) [facility] Practice Blue) TELE CONSULT [id number] ALL MEDS NOT PICKED UP DENG SOLANO 10/06 [facility](F [facility]ily Practic e Blue) [facility] OUTPATIENT [id number] JOANNA SMYTH 10/20 Released w/o Limitations [facility]) [facility]) TELE CONSULT [id number] Med refill SHAQUILLE HERR 10/25 [facility](F amily Practic e Red) [facility] Practice Blue) TELE CONSULT [id number] Pt's fentena l patch Rx was cancele d by Dr Herr Pt wants to know why. SHAQUILLE HERR 10/27 [facility](F amily Practic e Blue) [facility](F[facility]gan Practice Red) TELE CONSULT [id number] [facility]. Pt seen in ER. DENG SOLANO 10/30 [facility](F amily Practic e Red) [facility](F[facility]gan Practice Blue) TELE CONSULT [id number] after hours call SHAQUILLE HERR 11/02 [facility](F amily Practic e Blue) [facility] [facility] TELE CONSULT [id number] Follow- up ARTURO BUTT 11/17 [facility]) [facility] [facility] OUTPATIENT [id number] ARTURO BUTT 11/20 Released w/o Limitations [facility]) [facility] [facility] TELE CONSULT [id number] Follow- up ARTURO BUTT 12/07 [facility]) [facility] [facility] OUTPATIENT [id number] ARTURO BUTT 12/20 Released w/o Limitations [facility]agem [facility]) [facility]) TELE CONSULT [id number] Medicat ion Refill- -pt has no BP medicat ion DENG SOLANO 01/11 [facility](F amily Practic e Blue) [facility]) TELE CONSULT [id number] request for mail order pharmac y script to be complet ed by CELESTINA Thomas 01/17 [facility](F amily Practic e Blue) [facility]) TELE CONSULT [id number] med refill CELESTINA CORNEJO 04/27 Referred for Appointment [facility](F amily Practic e Blue) [facility]) TELE CONSULT [id number] labs SHAQULILE HERR 05/07 [facility](F amily Practic e Blue) [facility]) TELE CONSULT [id number] pt would like med refill for nexium- apt is jul 03 SHAQUILLE HERR 05/30 [facility](F amily Practic e Blue) [facility]) TELE CONSULT [id number] med refill UMAIR BEASLEY 07/10 [facility](F amily Practic e Blue) [facility]) OUTPATIENT [id number] f/u HTN and reflux, needs refill of meds UMAIR BEASLEY 07/26 Released w/o Limitations [facility](F amily Practic e Blue) [facility]) TELE CONSULT [id number] [facility] JANE Rivas 06/07 [facility]) [employer]([facility]) TELE CONSULT [id number] Apt Line- pt says she needs a new referra l to pain managme nt JANE DANIEL 06/11 [employer]([facility]) [employer]([facility] [employer] TELE CONSULT [id number] rn call center JANE DANIEL 06/11 [employer]([facility] [employer] ) [employer]([facility] [employer]) TELE CONSULT [id number] [employer] call. JANE DANIEL 06/14 [employer]([facility] [employer] ) [employer]([facility]) TELE CONSULT [id number] no-show appt yesterd ay, needs resched IDALIA Modi 06/19 Referred for Appointment [employer]([facility]) [employer]([facility] [place]) TELE CONSULT [id number] BP concern s ASHLEY HOLBROOK 06/24 Referred for Appointment [employer]([facility] [employer]) [employer]([facility]) OUTPATIENT [id number] blood pressur e JANE DANIEL 06/26 Released w/o Limitations [employer]([facility]) [employer]([facility]) OUTPATIENT [id number] WALKIN- -BP Check 1st day JANE DANIEL 07/01 Released w/o Limitations [employer]([facility]) [employer]([facility]) TELE CONSULT [id number] f/u labs JANE DANIEL 07/03 Referred for Appointment [employer]([facility]) [employer]([facility]) TELE CONSULT [id number] appt line - pt calling for bloodwo rk results from today 1 JANE DANIEL 07/05 [employer]([facility]) [employer]([facility]) OUTPATIENT [id number] f/u HTN JANE DANIEL 07/17 Released w/o Limitations [employer]([facility]) [employer]([facility]) OUTPATIENT [id number] Annual PAP LENCHOAMAN AYALA Eyal 08/02 Released w/o Limitations [employer]([facility]) [employer]([facility]) TELE CONSULT [id number] pap results receive deann MCGRATH AZAELLIZETT HOUSER 08/14 Referred for Appointment [employer]([facility]) [employer]([facility]) TELE CONSULT [id number] Apt Line - med refill nexium -40mg - lotrel- 10/40mg and coreg 40mg ASHLEY HOLBROOK 09/25 Referred for Appointment [employer]([facility]) [facility]) TELE CONSULT [id number] Notes Entered by: DARYN FLORES 20 Nov 2011 1617 ------- ------- ------- ------- -- Refer l to Dr Mccormick [facility] for migrain es ASHLEY HOLBROOK 11/19 Referred for Appointment [employer]([facility]) [facility] Team [place]) TELE CONSULT [id number] Notes Entered by: SUSAN DESAI 17 Jun 2012 0954 ------- ------- ------- ------- -- VVC-ref erral request MARISSA GAMBOA 06/17 Referred for Appointment [employer] [facility] [employer]) [employer]([facility] [place]) TELE CONSULT [id number] Notes Entered by: SUSAN DESAI 30 Jun 2012 0812 ------- ------- ------- ------- -- VVC-ref erral request ANGEL AUGUSTIN 06/30 [employer] [facility] [employer]) [employer]([facility] [place]) TELE CONSULT [id number] Notes Entered by: SUSAN DESAI 20 Jul 2012 0958 ------- ------- ------- ------- -- MARISSA Fernandez 07/20 Other Not Elsewhere Classified [employer]([facility] [employer]) [employer]([facility]) TELE CONSULT [id number] Notes Entered by: SUSAN DESAI 29 Jul 2012 1159 ------- ------- ------- ------- -- VVC-med ication MARGARITO LOPEZ 07/29 Referred for Appointment [employer]([facility]) [employer]([facility]) TELE CONSULT [id number] Notes Entered by: PRIETO ESPITIA 14 Aug 2012 1612 ------- ------- ------- ------- -- Network [facility] opy Operati ve Report JANE DANIEL 08/14 [employer]([facility]) [employer]([facility] [place]) TELE CONSULT [id number] Notes Entered by: Natalie JOVEL 07 Oct 2012 1454 ------- ------- ------- ------- -- Med refill NITISH VALADEZ 10/07 Referred for Appointment [employer] [facility] [employer]) [employer] [facility] [place]) TELE CONSULT [id number] Notes Entered by: NITISH DE LA TORRE 15 Dec 2012 0758 ------- ------- ------- ------- -- VVC-Med ication JENNIE Simpson 12/15 Referred for Appointment [employer] [facility] [employer] OUTPATIENT [id number] initial appt w/pcm for blood pressur e medicat ion JANE DANIEL 01/26 Released w/o Limitations [employer]([facility]) [employer]([facility]) TELE CONSULT [id number] Notes Entered by: SAGE HILARIO SA 29 Jan 2013 0902 ------- ------- ------- ------- -- Appt Made pt informe LUIS Darby 01/29 Referred for Appointment [employer] [facility] [facility]) [employer]([facility]) OUTPATIENT [id number] Back Stiffne ss JANE DANIEL 02/15 Released w/o Limitations [employer]([facility]) [employer]([facility]) TELE CONSULT [id number] Notes Entered by: HARRIET DANIEL 17 Feb 2013 1830 ------- ------- ------- ------- -- VVC message JANE DANIEL 02/17 [employer]([facility]) [employer] [employer] TELE CONSULT [id number] Notes Entered by: YAKOV HAMILTON 23 Feb 2013 1452 ------- ------- ------- ------- -- oumar weiss [facility] JUDD HAMILTON 02/23 [employer]([facility] [employer] ) [employer]([facility]) TELE CONSULT [id number] Notes Entered by: HARRIET DANIEL 24 Feb [id number] ------- ------- ------- ------- -- VVC message ALIYA OLIVEIRA 02/25 Referred for Appointment [employer]([facility]) [employer]([facility]) TELE CONSULT [id number] Notes Entered by: Eleazar WALL 05 Apr 2013 1706 ------- ------- ------- ------- -- VVC -referr JENNIE Flower 04/05 [facility]) [facility]) TELE CONSULT [id number] Notes Entered by: HARRIET DANIEL 16 Apr 2013 1637 ------- ------- ------- ------- -- VVC JANE DANIEL 04/16 [facility]) [facility]) OUTPATIENT [id number] f/u blood pressur e mediati on JANET MUKHERJEE 07/05 Released w/o Limitations [facility] Medical [facility]) [facility] [place]) TELE CONSULT [id number] Notes Entered by: LIZ BOTELLO 01 Nov 2013 1507 ------- ------- ------- ------- -- Backdat ed referPREETI Nowak 11/01 [facility] [employer]) [facility] [place]) TELE CONSULT [id number] Notes Entered by: Pamela GARZA 05 Nov 2013 1428 ------- ------- ------- ------- -- Network Results : Radiolo gy Report- CT Abdomen - 4 GREER JOVEL 11/05 [facility] [employer]) [facility] [place]) TELE CONSULT [id number] Notes Entered by: NITISH DE LA TORRE 17 Nov 2013 1007 ------- ------- ------- ------- -- VVC Terri -DAMIAN Wilkins 11/17 Referred for Appointment [facility] [place]) Procedures Combined list of: 1) Procedures from Department of Veterans Affairs facilities going back up to thelast 18 months, not all VA non-surgical procedures are included; 2) All procedures from the Department of Defense facilities. Procedure Procedure Type Code Date Perfomer Comments Sourc e FOOT, ADJUSTABLE SHOE-STYLED POSITIONING DEVICE 11/23/2001 [facility] HANDLING AND/OR CONVEYANCE O F SPECIMEN FOR TRANSFER FROM THE OFFICE TO A LABORATORY 08/28/2000 [facility] OPHTHALMOLOGICAL SERVICES: MEDICAL EXAMINATION AND EVALUATION WITH INITIATION OF DIAGNOSTIC AND TREATMENT PROGRAM; INTERMEDIATE, NEW PATIENT 06/12/2000 [facility] LAPAROSCOPY 08/04/1997 [facility] TRANSFUSION OF PACKED CELLS 08/04/1997 [facility] OTHER BILATERAL ENDOSCOPIC DESTRUCTION OR OCCLUSION OF FALLOPIAN TUBES 10/16/1995 [facility] EXCISION OF OTHER LESION OF SOFT TISSUE OF HAND 10/09/1995 [facility] ELECTROCARDIOGRAM, ROUTINE ECG WITH AT LEAST 12 LEADS; WITH INTERPRETATION AND REPORT 01/27/2013 [facility] SCREENING PAPANICOLAOU SMEAR ; OBTAINING, PREPARING AND CONVEYANCE OF CERVICAL OR VAGINAL SMEAR TO LABORATORY 08/02/2011 [facility] BLOOD PRESSURE MEASURED (CKD)(DM) 07/01/2011 [facility] ELECTROCARDIOGRAM, ROUTINE ECG WITH AT LEAST 12 LEADS; WITH INTERPRETATION AND REPORT 06/26/2011 [facility] COORDINATED CARE FEE, MAINTENANCE RATE 12/20/2009 [facility] COORDINATED CARE FEE, MAINTENANCE RATE 11/20/2009 [facility] COORDINATED CARE FEE, MAINTENANCE RATE 10/20/2009 [facility] COORDINATED CARE FEE, MAINTENANCE RATE 09/19/2009 [facility] COORDINATED CARE FEE, MAINTENANCE RATE 08/22/2009 [facility] SCREENING PAPANICOLAOU SMEAR ; OBTAINING, PREPARING AND CONVEYANCE OF CERVICAL OR VAGINAL SMEAR TO LABORATORY 12/09/2007 [facility] INTERPRETATION OR EXPLANATIO N OF RESULTS OF PSYCHIATRIC, OTH MEDICAL EXAMS/PROCEDURES, OR OTH ACCUMULATED DATA TO FAMILY OR OTH RESPONSIBLE PERSONS,OR ADVISING THEM HOW TO ASSIST PATIENT 02/05/2007 [facility] OPHTHALMOLOGICAL SERVICES: MEDICAL EXAMINATION AND EVALUATION, WITH INITIATION OR CONTINUATION OF DIAGNOSTIC AND TREATMENT PROGRAM; INTERMEDIATE, ESTABLISHED PATIENT 10/16/2006 [facility] OPHTHALMOLOGICAL SERVICES: MEDICAL EXAMINATION AND EVALUATION WITH INITIATION OF DIAGNOSTIC AND TREATMENT PROGRAM; INTERMEDIATE, NEW PATIENT 10/14/2006 [facility] SMOKING AND TOBACCO USE CESSATION COUNSELING VISIT; INTERMEDIATE, GREATER THAN 3 MINUTES UP TO 10 MINUTES 10/10/2006 [facility] HEALTH AND BEHAVIOR INTERVENTION, EACH 15 MINUTES, [id number]; GROUP (2 OR MORE PATIENTS) 01/29/2006 [facility] EDUCATIONAL SUPPLIES, SUCH A S BOOKS, TAPES, AND PAMPHLETS, FOR THE PATIENT'S EDUCATION AT COST TO PHYSICIAN OR OTHER QUALIFIED HEALTH BREWMASTER 01/27/2006 [facility] HEALTH AND BEHAVIOR INTERVENTION, EACH 15 MINUTES, [id number]; GROUP (2 OR MORE PATIENTS) 01/24/2006 [facility] EDUCATIONAL SUPPLIES, SUCH A S BOOKS, TAPES, AND PAMPHLETS, FOR THE PATIENT'S EDUCATION AT COST TO PHYSICIAN OR OTHER QUALIFIED HEALTH BREWMASTER 01/24/2006 [facility] SERVICE(S) PROVIDED ON AN EMERGENCY BASIS IN THE OFFICE, WHICH DISRUPTS OTHER SCHEDULED OFFICE SERVICES, IN ADDITION TO BASIC SERVICE 01/22/2006 [facility] INDIVIDUAL PSYCHOTHERAPY, INSIGHT ORIENTED, BEHAVIOR MODIFYING AND/OR SUPPORTIVE, IN AN OFFICE OR OUTPATIENT FACILITY, APPROXIMATELY 45 TO 50 MINUTES [id number] WITH THE PATIENT 01/21/2006 [facility] ANALYSIS OF CLINICAL DATA STORED IN COMPUTERS (EG, ECGS, BLOOD PRESSURES, HEMATOLOGIC DATA) 10/16/2005 [facility] NONINVASIVE EAR OR PULSE OXIMETRY FOR OXYGEN SATURATION; SINGLE DETERMINATION 09/24/2005 [facility] ANALYSIS OF CLINICAL DATA STORED IN COMPUTERS (EG, ECGS, BLOOD PRESSURES, HEMATOLOGIC DATA) 09/16/2005 [facility] ANALYSIS OF CLINICAL DATA STORED IN COMPUTERS (EG, ECGS, BLOOD PRESSURES, HEMATOLOGIC DATA) 09/11/2005 [facility] ELECTROCARDIOGRAM, ROUTINE ECG WITH AT LEAST 12 LEADS; WITH INTERPRETATION AND REPORT 02/21/2005 [facility] INJECTION, MEPERIDINE AND PROMETHAZINE HCL, UP TO 50 MG 02/06/2005 [facility] INJECTION, KETOROLAC TROMETHAMINE, PER 15 MG 01/08/2005 [facility] REMOVAL IMPACTED CERUMEN REQUIRING INSTRUMENTATION, UNILATERAL 01/02/2005 [facility] THERAPEUTIC, PROPHYLACTIC OR DIAGNOSTIC INJECTION (SPECIFY MATERIAL INJECTED); SUBCUTANEOUS OR INTRAMUSCULAR 06/18/2004 [facility] SCREENING PAPANICOLAOU SMEAR ; OBTAINING, PREPARING AND CONVEYANCE OF CERVICAL OR VAGINAL SMEAR TO LABORATORY 06/08/2004 [facility] INJECTION, MEPERIDINE HCL, PER 100 MG 06/04/2004 [facility] CHEMOTHERAPY ADMINISTRATION, SUBCUTANEOUS OR INTRAMUSCULAR, WITH OR WITHOUT LOCAL ANESTHESIA 04/01/2004 [facility] ELECTROCARDIOGRAM, ROUTINE ECG WITH AT LEAST 12 LEADS; WITH INTERPRETATION AND REPORT 01/24/2004 [facility] INJECTION, PROMETHAZINE HCL, UP TO 50 MG 11/21/2003 [facility] ELECTROCARDIOGRAM, ROUTINE ECG WITH AT LEAST 12 LEADS; INTERPRETATION AND REPORT ONLY 10/04/2003 [facility] INJECTION, PROMETHAZINE HCL, UP TO 50 MG 09/27/2003 [facility] INJECTION, MEPERIDINE HCL, PER 100 MG 07/04/2003 [facility] PHYS/OTH QUALIFIED HEALTH BREWMASTER QUALIFIED,EDUCATION,TRAIN,LIC ENSURE/REGULATION (WHEN APPLICABLE) EDUC SER RENDERED TO PATS IN A GRP SETTING (EG,,OBESITY,OR DIABETIC INSTRUCT) 05/16/2003 [facility] NONINVASIVE EAR OR PULSE OXIMETRY FOR OXYGEN SATURATION; SINGLE DETERMINATION 04/22/2003 [facility] NONINVASIVE EAR OR PULSE OXIMETRY FOR OXYGEN SATURATION; SINGLE DETERMINATION 01/12/2003 [facility] SUPP &MATERIAL (EXCEPT SPECTACLE),PROVID,THE PHYS/OTH QUALIFIED HEALTH BREWMASTER OVER &ABOVE THOSE USUALLY INCLD W THE OFFICE VISIT/OTH SER RENDERED (LIST DRUG,TRAYS,SUPP,OR MATERIAL PROVID) 01/02/2003 [facility] PHYS/OTH QUALIFIED HEALTH BREWMASTER QUALIFIED,EDUCATION,TRAIN,LIC ENSURE/REGULATION (WHEN APPLICABLE) EDUC SER RENDERED TO PATS IN A GRP SETTING (EG,,OBESITY,OR DIABETIC INSTRUCT) 10/28/2002 [facility] HOSPITALIST SERVICES (LIST SEPARATELY IN ADDITION TO CODE FOR APPROPRIATE EVALUATION AND MANAGEMENT SERVICE) 09/22/2002 [facility] HOSPITALIST SERVICES (LIST SEPARATELY IN ADDITION TO CODE FOR APPROPRIATE EVALUATION AND MANAGEMENT SERVICE) 09/21/2002 [facility] HOSPITALIST SERVICES (LIST SEPARATELY IN ADDITION TO CODE FOR APPROPRIATE EVALUATION AND MANAGEMENT SERVICE) 09/20/2002 [facility] ELECTROCARDIOGRAM, ROUTINE ECG WITH AT LEAST 12 LEADS; INTERPRETATION AND REPORT ONLY 08/26/2002 [facility] CATHETERIZATION, URETHRA; SIMPLE 07/01/2002 [facility] INTRAVENOUS PYELOGRAM 06/08/2002 [facility] VENOUS CATHETERIZATION, NOT ELSEWHERE CLASSIFIED 06/08/2002 [facility] EXPLORATORY LAPAROTOMY 06/08/2002 [facility] OTHER CYSTOSCOPY 06/08/2002 [facility] OTHER UNILATERAL SALPINGO-OOPHORECTOMY 06/08/2002 [facility] INJECTION OF ANTIBIOTIC 06/08/2002 [facility] COMPUTERIZED AXIAL TOMOGRAPH Y OF ABDOMEN 06/08/2002 [facility] OTHER OPERATIONS ON CUL-DE-SAC 06/08/2002 [facility] SUBTOTAL ABDOMINAL HYSTERECTOMY 06/08/2002 [facility] MEDICAL NUTRITION THERAPY; RE-ASSESSMENT AND INTERVENTION, INDIVIDUAL, [id number] WITH THE PATIENT, EACH 15 MINUTES 06/08/2002 [facility] MEDICAL NUTRITION THERAPY; RE-ASSESSMENT AND INTERVENTION, INDIVIDUAL, [id number] WITH THE PATIENT, EACH 15 MINUTES 06/04/2002 [facility] EXCISION OF BONE CYST OR BENIGN TUMOR, WING OF ILIUM, SYMPHYSIS PUBIS, OR GREATER TROCHANTER OF FEMUR; SUPERFICIAL, INCLUDES AUTOGRAFT, WHEN PERFORMED 05/13/2002 [facility] THERAPEUTIC OR DIAGNOSTIC INJECTION (SPECIFY MATERIAL INJECTED); INTRAVENOUS 02/14/2002 [facility] MEDICAL NUTRITION THERAPY; INITIAL ASSESSMENT AND INTERVENTION, INDIVIDUAL, [id number] WITH THE PATIENT, EACH 15 MINUTES 02/11/2002 [facility] Social History Combined list of available smoking, tobacco, and other social history from Department of Defense and Veterans Affairs facilities. Social History Type Response Date Comment Sour e This section is an empty social history section. [facility]
--- OUTSIDE RECORDS SUMMARY | 2024-09-30 15:41 | XMS_ITS | Referral Summary ---
Author Organization [facility] Address [address] [address] Care Team Providers Care Home And Family Living Professor Name Role Phone Charlene Murillo MD Unavailable [phone] Lenin Frances MD Unavailable [phone] Sylvester Brown MD Unavailable [phone] Cornell Bingham MD Unavailable [phone] Pcp, [address] Primary Care Provide r Unavailable Source Comments [facility],non-owned Affiliates and Associated Physician Practices is amultiple site organization consisting of ambulatory clinics and hospital sitesin [place], [place], [place] and [place]. This disclosure is being madepursuant to the Care Everywhere program and may not contain all information available regarding this patient. Last updated 18.[facility] Allergies Active Allergy Reactions Criticality Noted [...] Active vitamin D, ergocalciferol, (DRISDOL) 1.25 MG (28429 UT) capsule Take 50,000 Units by mouth [...] sprayIndications: Other migraine without status migrainosus, intractable [place] 1 spray into each nostril 2 times [...] Comments Blood Pressure 120/74 06/27/2020 11:23 AM STOVE REFINISHER Pulse 60 06/27/2020 11:23 AM STOVE REFINISHER Temperature 35.7 C (96.3 F) 06/27/2020 11:23 AM STOVE REFINISHER Respiratory Rate 14 06/27/2020 11:23 AM STOVE REFINISHER Oxygen Saturation 100% 06/27/2020 11:23 AM STOVE REFINISHER Inhaled Oxygen Concentration - - Weight 70.8 kg (156 lb) 06/27/2020 11:23 AM STOVE REFINISHER Height 167.6 cm (5' 6 ) 06/27/2020 11:23 AM STOVE REFINISHER Body Mass Index 25.18 06/27/2020 11:23 AM STOVE REFINISHER Functional Status Functional Status Response Date of [...] exam COMPREHENSIVE METABOLIC PANEL 10/08/2018 1:18 PM STOVE REFINISHER from Last 3 Months or Most Recently [...] of containers..01 ThinPrep Vial Resulting Agency Comment [address] [place] [id number] Natali Whiteside GM VIDEO-TRAFFIC REPRESENTATIVE LAB - PATHOLOGY/CY TOLOGY [facility]ABLES [facility] [address] [place] [address] * COMPREHENSIVE METABOLIC PANEL (10/08/2018 1:18 PM STOVE REFINISHER) [facility] Glucose 98 74 - 106 mg/dL [facility] [...] [facility] INSURANCE BILL Comment:FASTING 10/08/2018 1:18 PM STOVE REFINISHER 10/08/2018 Narrative Resulting Agency Comment [address] [id number] Williams Avalos MD LAB - CHEMISTRY KAREN HOLLINS [facility] INSURANCE BILL [address] [place] [address] from Last 3 Months or Most Recently Relevant to Health Maintenance Advance Directives Documents on File Type Date Recorded Patient Pole Incisor Operator Expl anation Adv Directive/Living Will/POA 12/10/2016 * Full Code (Latest Code Status on File) Date Activated Date Inactivated Comments 12/14/2016 12:49 AM 12/16/2016 12:21 PM * Full Code Date Activated Date Inactivated Comments 12/10/2016 2:26 PM 12/11/2016 5:18 PM * Full Code Date Activated Date Inactivated Comments 12/10/2016 1:49 PM 12/10/2016 2:26 PM Care Teams Home And Family Living Professor Relationship Specialty Start Date End Date Pcp, [facility] 3rd PCP - General 09/14/24 Charlene Murillo MD [address] [address] [address] [place] [address] Consulting Physician Pulmonary Disease 04/09/18 Lenin Frances MD [address] [facility] [place] [id number] Pain Management Anesthesiology 10/08/18 Sylvester Brown MD [address] [place] [address] Psychiatry 12/23/18 Cornell Bingham MD [address] [place] [id number] Cardiovascular Disease 06/15/19
--- OUTSIDE RECORDS SUMMARY | 2024-09-30 15:41 | XMS_ITS | Encounter Summary ---
Author Organization [facility] Care Team Providers Care Business Management Consultant Name Role Phone Paddy Riley MD, Fabrizio Unavailable [phone] Chris Mahmood DO Primary Care Provider + No, Physician Primary Care Provider [phone] Shruthi Modi MD Primary Care Provider Dmitry Laguna MD Unavailable [phone] Encounter Details Date Type Department Care Team (Latest Contact Info) Description 10/29/2017 Orders Only [facility] CLINCONV ProviderRay MD [address] [place] [id number] Social History Tobacco Use Types Packs/Day Years Used Date Smoking Tobacco: Never Assessed Comments Unknown Sex and Gender Information Value Date Recorded Sex Assigned at Not on file Legal Sex Female 6:55 AM MICROBIOLOGY PROFESSOR Gender Identity Female 07/23/2020 8:34 PM MICROBIOLOGY PROFESSOR Sexual Orientation Straight 07/23/2020 8: 34 PM MICROBIOLOGY PROFESSOR documented as of this encounter Plan of [...] documented as of this encounter Care Teams Business Management Consultant Relationship Specialty Start Date End Date Chris Mahmood DO [address] [place] [phone] PCP - General Family Medicine 07/05/21 10/04/21 No, Physician PCP - General 10/15/21 10/23/21 Shruthi Modi MD [address] [facility] [facility] [place] [address] PCP - General Family Practice 10/24/21 Fabrizio Thomason Jr., MD Medical Oncologist/Hematologis t Medical Oncology 03/02/21 Dmitry Laguna MD [address] [facility] [place] [address] Referring Physician Endocrinology Diabetes & Metabolism 05/21/23 documented as of this encounter
--- OUTSIDE RECORDS SUMMARY | 2024-09-30 15:42 | XMS_ITS | Encounter Summary ---
Author Organization [facility] Address [address] [place] [address] Phone Care Team Providers Care Artistic Associate Name Role Phone Paddy Riley MD, Fabrizio Unavailable [phone] Shruthi Modi MD Primary Care Provider Dmitry Laguna MD Unavailable [phone] Reason for Visit * Reason Onset Date Comments Lab Results 09/21/2024 Encounter Details Date Type Department Care Team (Late st Contact Info) Description 09/21/2024 Telephone [facility] Endocrinology Metabolism and Lipid [address] [place] [address] [place] [address] Regla Gil RN Lab Results [...] on file Legal Sex Female 6:55 AM HYDRAULIC TECHNICIAN Gender Identity Female 07/23/2020 8:34 PM HYDRAULIC TECHNICIAN Sexual Orientation Straight 07/23/2020 8: 34 PM HYDRAULIC TECHNICIAN documented as of this encounter Miscellaneous Notes * Telephone Encounter - Regla Gil RN - 09/21/2024 4:45 PM HYDRAULIC TECHNICIAN Images from the original note were not included. Discussed via phone with patient She will have A1c and BMP done on - faxed to [phone]- she didn't have A1c drawn bc she [...] visit and she could also see CDE AULIC TECHNICIAN documented in this encounter Plan of [...] documented as of this encounter Care Teams Artistic Associate Relationship Specialty Start Date End Date Shruthi Modi MD [address] [place] [address] PCP - General Family Practice 10/24/21 Fabrizio Thomason Jr., MD Medical Oncologist/Hematologis t Medical Oncology 03/02/21 Dmitry Laguna MD [address] [place] [address] Referring Physician Endocrinology Diabetes & Metabolism 05/21/23 documented as of this encounter
--- OUTSIDE RECORDS SUMMARY | 2024-09-30 15:43 | XMS_ITS | Referral Summary ---
Author Organization [facility] Address 1 [place] [address] Care Team Providers Care Health Care Attorney Name Role Phone Paddy Riley MD, Fabrizio Unavailable [phone] Shruthi Modi MD Primary Care Provider Dmitry Laguna MD Unavailable [phone] Encounters Date Type Department Care Team Description 09/21/2024 Telephone [facility] Endocrinology Metabolism and Lipid [address] [facility] 5th [place] [address] [place] [phone] Regla Gil, cheese cook Results 09/14/2024 Orders Only [facility] Obstetrical Gynecology [address] [place] [address] [place] [address] Edmond Bruno MD 09/14/2024 Telephone [facility] Obstetrical Gynecology [address] [place] [address] [address] [place] [address] Edmond Bruno MD 09/08/2024 Telephone [facility] Endocrinology Metabolism and Lipid 1 [facility] [address] [place] [phone] Regla Gil, DEWEY Follow-up 09/08/2024 10:40 AM MANAGER PHYSICAL Office Visit [facility] Endocrinology Metabolism and Lipid [address] [facility] 5th [place] [address] [place] [address] Bita Irby MD Type 2 diabetes mellitus with hyperglycemia, without long-term current use of insulin (HCC) (Primary Dx); Osteopenia, unspecified location; Compression fracture of lumbar vertebra, unspecified lumbar vertebral level, sequela 08/31/2024 Telephone [facility] Endocrinology Metabolism and Lipid [address] [facility] 5th [place] [address] [place] [address] Regla Gil RN CGM 07/22/2024 1:30 PM MANAGER PHYSICAL Procedure visit [facility] Medical [facility] Neurology [address] [facility] [address] [place] [address] Xiomara Hernandez NP Intractable chronic [...] (twelve) hours Active blood-glucose meter,continuous (Dexcom G6 Water Hydrant Installer) misc Use as directed 1 each 09/08/19 [...] 09/09/2020 Assessment & Plan (09/09/2020 7:50 AM MANAGER PHYSICAL): Discussed CDC guideline for quarantine. Drink plenty [...] CDT): Patient is a former patient of [facility] being treated with combination migraine prophylaxis [...] year. Cardiac murmur 11/26/2016 Narcotic abuse, continuous ([facility]) 09/16/2016 Drug-seeking behavior 08/21/2016 IBS (irritable bowel [...] vative Free, Intramuscular 07/18/2016,07/06/2015 Influenza, Unspecified 05/17/2020,2018,05/22/2018,06/01,09/06/2005 [employer] SARS-CoV-2 Monovalent Vaccination (12+ Yrs) AVILA-READY TO [...] on file Legal Sex Female 6:55 AM MANAGER PHYSICAL Gender Identity Female 07/23/2020 8:34 PM MANAGER PHYSICAL Sexual Orientation Straight 07/23/2020 8: 34 PM MANAGER PHYSICAL Last Filed Vital Signs Vital Sign Reading Time Taken Comments Blood Pressure 114/75 09/08/2024 11:09 AM MANAGER PHYSICAL Pulse 81 09/08/2024 11:09 AM MANAGER PHYSICAL Temperature 36.5 C (97.7 F) 09/08/2024 11:09 AM MANAGER PHYSICAL Respiratory Rate 16 06/15/2024 8:35 PM CDT Oxygen Saturation 100% 06/15/2024 8:35 PM CDT Inhaled Oxygen Concentration - - Weight 68 kg (150 lb) 09/08/2024 11:09 AM MANAGER PHYSICAL Height 167.6 cm (5' 6 ) 09/08/2024 11:09 AM MANAGER PHYSICAL Body Mass Index 24.21 09/08/2024 11:09 AM MANAGER PHYSICAL Plan of Treatment Not on file Procedures Procedure Name Priority Date/Time Associated Diagnosis Comments BOTOX INJECTION Routine 07/22/2024 1:30 PM MANAGER PHYSICAL Intractable chronic migraine without aura and without status migrainosus EGFR STAT 06/15/2024 2:40 PM CDT DIABETIC EYE EXAM Routine 02/16/2024 2:0 5 PM CDT HEMOGLOBIN A1C Routine 11/04/2023 11:15 AM CDT Adrenal mass (HCC) Type 2 diabetes mellitus with other specified complication, unspecified whether terminologist insulin use (HCC) LIPID PANEL Routine 11/04/2023 11:15 AM CDT Adrenal mass (HCC) Type 2 diabetes mellitus with other specified complication, unspecified whether retirement insulin use (HCC) ALBUMIN CREATININE RATIO, URINE Routine 11/04/2023 11:15 AM CDT Adrenal mass (HCC) Type 2 diabetes mellitus with other specified complication, unspecified whether terminologist insulin use (HCC) PAP AND HIGH RISK HPV, REFLEX TO GENOTYPING Routine 06/11/2023 11:48 AM CDT Encounter for screening for malignant neoplasm of cervix COLONOSCOPY Routine 07/06/2020 SCREENING MAMMOGRAM BILATERAL W LENY Routine 12/31/2016 12:28 PM CDT from Last 3 Months or Most Recently Relevant to Health Maintenance Results * Botox Injection (07/22/2024 1:30 PM MANAGER PHYSICAL) Narrative Ritika Treadwell - 07/22/2024 1:30 PM MANAGER PHYSICAL Ritika Treadwell 07/23/2024 12:25 PM Botox Injection Performed by: Xiomara Hernandez NP Authorized by: Xiomara Hernandez NP [place] Protocol: Consent Given by: Patient Timeout: prior [...] Hernandez NP Authorized by: Xiomara Hernandez NP [place] Protocol: Consent Given by: Patient Timeout: prior [...] was last reviewed 2021. Testing performed by: [facility], [address] [place] [address]., [id number] Blood 06/15/2024 2:40 PM CDT 06/15/2024 2:50 PM CDT us Chris Lopez Jr., MD LAB BLOOD ORDERABLES Fi nal Result Performing Organization Address [facility] Co de Phone Number RAYMON [address] [facility] Department [place] [address] * Diabetic Eye Exam (02/16/2024 2:05 PM [...] MD LAB URINE ORDERABLES Final Res ult [facility] [...] MD LAB BLOOD ORDERABLES Final Res ult [facility] [...] AM CDT 11/04/2023 12:42 PM CDT Narrative [facility] - 11/04/2023 1:37 [...] CDT 06/13/2023 11:48 AM CDT Narrative PATHOLOGY [facility] - 06/17/2023 3:[address] [facility] Department of Pathology [address] [place], [place] [id number] Final Report with Addendum Note to Patients: [...] the details. Patient Name: COLIN BOYD Address: [address] [place] [address] [address] [place] [address] Gender: F : 1970 (Age: 53) Service: Location: [facility] : [id number] [facility] #: [id number] Patient Type: [facility] SPECIMEN Taken: 06/11/2023 Received: 06/13/2023 Accessioned:: 06/13/2023 Reported: 06/17/2023 Physician(s): Edmond Bruno M.D. [facility] Diagnosis: SOURCE OF SPECIMEN SCREENING THIN PREP IMAGED PAP w/ HPV: STATEMENT OF ADEQUACY - Satisfactory for evaluation; endocervical/transformation zone component present - This case was rejected by computer assisted technology and was manually screened by a accountant certified public GENERAL CATEGORIZATION: - Negative for intraepithelial lesion [...] this test have been verified by the [facility] Molecular Infectious Disease laboratory. Correlate with reported [...] determined by the Surgical Pathology Department at [facility] as part of an ongoing manager quality program and in compliance with federally mandated [...] characteristics determined by the Surgical Pathology Department [facility]. It has not been cleared or approved by the U. S. Food and Drug Administration. Edmond Bruno MD LAB CYTOLOGY ORDERABLES Final Result PATHOLOGY [facility] * Colonoscopy (07/06/2020) Anatomical Region Laterality [...] Please contact Infection Prevention. 01/16/2024 01/16/[address] [place] [place] [address] [facility] PPO [facility] Care Teams Health Care Attorney Relationship Specialty Start Date End Date Shruthi Modi MD [address] [facility] [facility] [place] [address] PCP - General Family Practice 10/24/21 Fabrizio Thomason Jr., MD Medical Oncologist/Hematologis t Medical Oncology 03/02/21 Dmitry Laguna MD [address] [facility] [facility] [place] [address] Referring Physician Endocrinology Diabetes & Metabolism 05/21/23
--- OUTSIDE RECORDS SUMMARY | 2024-09-30 15:43 | XMS_ITS | Clinical Summary ---
Author Organization [facility] Address [address] [place] [address] Care Team Providers Care Metal Melter Name Role Phone Paddy Riley MD, Fabrizio Unavailable [phone] Shruthi Modi MD Primary Care Provider Dmitry Laguna MD Unavailable [phone] Allergies Active Allergy Reactions Criticality Noted Date [...] (twelve) hours Active blood-glucose meter,continuous (Dexcom G6 Cardiac Monitor) misc Use as directed 1 each 09/08/19 [...] 09/09/2020 Assessment & Plan (09/09/2020 7:50 AM FAMILY INDEPENDENCE CASE MANAGER): Discussed CDC guideline for quarantine. Drink plenty [...] CDT): Patient is a former patient of [facility] being treated with combination migraine prophylaxis [...] Type Department Care Team Description 09/21/2024 Telephone [facility] Endocrinology Metabolism and Lipid [address] [place] [address] [place] [address] Regla Gil, small parts assembler Results 09/14/2024 Orders Only [facility] Obstetrical Gynecology [address] [place] [address] [place] [phone] Edmond Bruno MD 09/14/2024 Telephone [facility] Obstetrical Gynecology [address] [place] [address] [phone] Edmond Bruno MD 09/08/2024 10:40 AM FAMILY INDEPENDENCE CASE MANAGER Office Visit [facility] Endocrinology Metabolism and Lipid [address] [place] [address] Bita Irby MD Type 2 diabetes mellitus with hyperglycemia, without long-term current use of insulin (HCC) (Primary Dx); Osteopenia, unspecified location; Compression fracture of lumbar vertebra, unspecified lumbar vertebral level, sequela 09/08/2024 Telephone [facility] Endocrinology Metabolism and Lipid 1 [facility] [address] [place] [address] Regla Gil RN Follow-up 08/31/2024 Telephone [facility] Endocrinology Metabolism and Lipid [address] [place] [address] [place] [address] Regla Gil, DEWEY CGM 07/22/2024 1:30 PM FAMILY INDEPENDENCE CASE MANAGER Procedure visit [facility] Neurology [address] [place] [address] [place] [phone] Xiomara Hernandez NP Intractable chronic migraine without aura and without status migrainosus from Last 3 Months Immunizations Name Administration Dates Next Due DTaP 12/18/2015 Influenza, Quadrivalent, Rec ombinant, Egg Free, Preservative Free, Intramuscular 06/15/2019 Influenza, Quadrivalent, Spl it, Preservative Free, Intramuscular 06/12/2022,05/17/2020,05/22/2018,05/10 Influenza, Split 06/01/2010,09/06/2005 Influenza, Trivalent, IM (MDV) 05/22/2021,2016 Influenza, Trivalent, Preser vative Free, Intramuscular 07/18/2016,07/06/2015 Influenza, Unspecified 05/17/2020,2018,05/22/2018,06/01,09/06/2005 [employer] SARS-CoV-2 Monovalent Vaccination (12+ Yrs) AVILA-READY TO [...] on file Legal Sex Female 6:55 AM FAMILY INDEPENDENCE CASE MANAGER Gender Identity Female 07/23/2020 8:34 PM FAMILY INDEPENDENCE CASE MANAGER Sexual Orientation Straight 07/23/2020 8: 34 PM FAMILY INDEPENDENCE CASE MANAGER Obstetrics History Para Term AB IAB SAB Ectopic Multiple Livin g Live Births 4 4 4 4 Date Outcome GA Total Labor Labor/2nd/3rd Weight Sex Type Anes PTL Yolanda A1 A5 Name Clin Para Para Para Para Last Filed Vital Signs Vital Sign Reading Time Taken Comments Blood Pressure 114/75 09/08/2024 11:09 AM FAMILY INDEPENDENCE CASE MANAGER Pulse 81 09/08/2024 11:09 AM FAMILY INDEPENDENCE CASE MANAGER Temperature 36.5 C (97.7 F) 09/08/2024 11:09 AM FAMILY INDEPENDENCE CASE MANAGER Respiratory Rate 16 06/15/2024 8:35 PM CDT Oxygen Saturation 100% 06/15/2024 8:35 PM CDT Inhaled Oxygen Concentration - - Weight 68 kg (150 lb) 09/08/2024 11:09 AM FAMILY INDEPENDENCE CASE MANAGER Height 167.6 cm (5' 6 ) 09/08/2024 11:09 AM FAMILY INDEPENDENCE CASE MANAGER Body Mass Index 24.21 09/08/2024 11:09 AM FAMILY INDEPENDENCE CASE MANAGER Plan of Treatment Health Maintenance Due Date [...] Comments BOTOX INJECTION Routine 07/22/2024 1:30 PM FAMILY INDEPENDENCE CASE MANAGER Intractable chronic migraine without aura and without status migrainosus EGFR STAT 06/15/2024 2:40 PM CDT DIABETIC EYE EXAM Routine 02/16/2024 2:0 5 PM CDT HEMOGLOBIN A1C Routine 11/04/2023 11:15 AM CDT Adrenal mass (HCC) Type 2 diabetes mellitus with other specified complication, unspecified whether buttermaker helper insulin use (HCC) LIPID PANEL Routine 11/04/2023 11:15 AM CDT Adrenal mass (HCC) Type 2 diabetes mellitus with other specified complication, unspecified whether alf insulin use (HCC) ALBUMIN CREATININE RATIO, URINE Routine 11/04/2023 11:15 AM CDT Adrenal mass (HCC) Type 2 diabetes mellitus with other specified complication, unspecified whether buttermaker helper insulin use (HCC) PAP AND HIGH RISK HPV, REFLEX TO GENOTYPING Routine 06/11/2023 11:48 AM CDT Encounter for screening for malignant neoplasm of cervix COLONOSCOPY Routine 07/06/2020 SCREENING MAMMOGRAM BILATERAL W LENY Routine 12/31/2016 12:28 PM CDT from Last 3 Months or Most Recently Relevant to Health Maintenance Results * Botox Injection (07/22/2024 1:30 PM FAMILY INDEPENDENCE CASE MANAGER) Narrative Ritkia Treadwell - 07/22/2024 1:30 PM FAMILY INDEPENDENCE CASE MANAGER Ritika Treadwell 07/23/2024 12:25 PM Botox Injection Performed by: Xiomara Hernandez NP Authorized by: Xiomara Hernandez NP [place] Protocol: Consent Given by: Patient Timeout: prior [...] Hernandez NP Authorized by: Xiomara Hernandez NP [place] Protocol: Consent Given by: Patient Timeout: prior [...] was last reviewed 2021. Testing performed by: [facility] [place] [facility], [address] [place] [address], [place]., [address] Blood 06/15/2024 2:40 PM CDT 06/15/2024 2:50 PM CDT us Chris Lopez Jr., MD LAB BLOOD ORDERABLES Fi nal Result Performing Organization Address City/[facility]/ZIP Co de Phone Number RAYMON [address] [facility] Department of Laboratories [place], [place] [phone] * Diabetic Eye Exam (02/16/2024 2:05 PM [...] ORDERABLES Final Res ult Performing Organization Address City/[facility]/ZIP Co de Phone Number [facility] * [...] ORDERABLES Final Res ult Performing Organization Address City/[facility]/ZIP Co de Phone Number [facility] * [...] AM CDT 11/04/2023 12:42 PM CDT Narrative [facility] - 11/04/2023 1:37 PM CDT Current interpretive data was last updated July 20, 2021. For adults ages 40-79, the ACC/AHA recommends discussing your 10-year atherosclerotic cardiovascular disease risk with your health care provider. https://www.acc.org/ASCVDApp Bita Irby MD LAB BLOOD ORDERABLES Final Res ult [facility] * Pap and High Risk HPV and Genotyping (Cytology Component) (06/11/2023 11:48 AM CDT) Endocervical (Pap test) 06/11/2023 11:48 AM CDT 06/13/2023 11:48 AM CDT Narrative PATHOLOGY [facility] - 06/17/2023 3:27 PM CDT [facility] Department of Pathology [address] [place] [address] Final Report with Addendum Note to Patients: [...] the details. Patient Name: COLIN BOYD Address: [address] [place] [address] [address] [place] [address] Gender: F : 1970 (Age: 53) Service: Location: [facility] : [id number] [facility] #: [id number] Patient Type: [facility] SPECIMEN Taken: 06/11/2023 Received: 06/13/2023 Accessioned:: 06/13/2023 Reported: 06/17/2023 Physician(s): Edmond Bruno M.D. [facility] [place] Diagnosis: SOURCE OF SPECIMEN SCREENING THIN PREP IMAGED PAP w/ HPV: STATEMENT OF ADEQUACY - Satisfactory for evaluation; endocervical/transformation zone component present - This case was rejected by computer assisted technology and was manually screened by a general accounting clerk GENERAL CATEGORIZATION: - Negative for intraepithelial lesion [...] this test have been verified by the [facility] Molecular Infectious Disease laboratory. Correlate with [...] by the Surgical Pathology Department at [facility] as part of an ongoing quality control director program and in compliance with federally mandated [...] MD LAB CYTOLOGY ORDERABLES Final Result PATHOLOGY [facility] * Colonoscopy (07/06/2020) Anatomical Region [...] Please contact Infection Prevention. 01/16/2024 01/16/2024 Insurance [employer] [facility] Care Teams Metal Melter Relationship Specialty Start Date End Date Shruthi Modi MD [address] [facility] [place] [address] PCP - General Family Practice 10/24/21 Fabrizio Thomason Jr., MD Medical Oncologist/Hematologis t Medical Oncology 03/02/21 Dmitry Laguna MD [address] [facility] [place] [address] Referring Physician Endocrinology Diabetes & Metabolism 05/21/23
--- OUTSIDE RECORDS SUMMARY | 2024-09-30 15:44 | XMS_ITS | Encounter Summary ---
Author Organization [facility] Facility Care Team Providers Care Microsoft Bi Developer Name Role Phone Paddy Riley MD, Fabrizio Unavailable [phone] Chris Mahmood DO Primary Care Provider + No, Physician Primary Care Provider [phone] Shruthi Modi MD Primary Care Provider Dmtiry Laguna MD Unavailable [phone] Encounter Details Date Type Department Care Team (Latest Contact Info) Description 01/29/2016 Orders Only [facility] CLINCON[facility] ProviderRay MD [address] [place] [phone] Social History Tobacco Use Types Packs/Day Years Used Date Smoking Tobacco: Never Assessed Comments Unknown Sex and Gender Information Value Date Recorded Sex Assigned at Not on file Legal Sex Female 6:55 AM CENTRIFUGAL CASTING MACHINE TENDER Gender Identity Female 07/23/2020 8:34 PM CENTRIFUGAL CASTING MACHINE TENDER Sexual Orientation Straight 07/23/2020 8: 34 PM CENTRIFUGAL CASTING MACHINE TENDER documented as of this encounter Plan of [...] documented as of this encounter Care Teams [employer] Bi Developer Relationship Specialty Start Date End Date Chris Mahmood DO [address] [place] [id number] PCP - General Family Medicine 07/05/21 10/04/21 No, Physician PCP - General 10/15/21 10/23/21 Shruthi Modi MD [address] [place] [address] PCP - General Family Practice 10/24/21 Fabrizio Thomason Jr., MD Medical Oncologist/Hematologis t Medical Oncology 03/02/21 Dmitry Laguna MD [address] [facility] [address] Referring Physician Endocrinology Diabetes & Metabolism 05/21/23 documented as of this encounter
--- OUTSIDE RECORDS SUMMARY | 2024-09-30 15:44 | XMS_ITS | Encounter Summary ---
Author Organization [facility] Facility Care Team Providers Care Boil Off Machine Operator Cloth Name Role Phone Paddy Riley MD, Fabrizio Unavailable [phone] Chris Mahmood DO Primary Care Provider + No, Physician Primary Care Provider [phone] Shruthi Modi MD Primary Care Provider Dmitry Laguna MD Unavailable [phone] Encounter Details Date Type Department Care Team (Latest Contact Info) Description 04/23/2016 Orders Only [facility] CLINCONV ProviderRay MD [address] [place] [address] Social History Tobacco Use Types Packs/Day Years Used Date Smoking Tobacco: Never Assessed Comments Unknown Sex and Gender Information Value Date Recorded Sex Assigned at Not on file Legal Sex Female 6:55 AM BUILDING PERFORMANCE CONSULTANT Gender Identity Female 07/23/2020 8:34 PM BUILDING PERFORMANCE CONSULTANT Sexual Orientation Straight 07/23/2020 8: 34 PM BUILDING PERFORMANCE CONSULTANT documented as of this encounter Plan of [...] documented as of this encounter Care Teams Boil Off Machine Operator Cloth Relationship Specialty Start Date End Date Chris Mahmood DO [address] [place] [address] PCP - General Family Medicine 07/05/21 10/04/21 No, Physician PCP - General 10/15/21 10/23/21 Shruthi Modi MD [address] [facility] [place] [address] PCP - General Family Practice 10/24/21 Fabrizio Thomason Jr., MD Medical Oncologist/Hematologis t Medical Oncology 03/02/21 Dmitry Laguna MD [address] [facility] [place] [address] Referring Physician Endocrinology Diabetes & Metabolism 05/21/23 documented as of this encounter
[2024-09-30 15:47] VITALS: BP 167/95; PULSE 73; RESP 16; TEMP 36.2; O2SAT 100
--- NOTE | 2024-09-30 15:57 | PC.NURSE ---
patient comes to this RN and states, my sugars have come back up and I feel a lot better. I would like to leave instead of being exposed to the sick people . educated pt to return with any concerning symptoms. ambulates with steady gait and no resp. distress.
--- OUTSIDE RECORDS SUMMARY | 2024-09-30 16:28 | XMS_ITS | Encounter Summary ---
Author Organization [facility] Address [address] [place] [address] Care Team Providers Care Manager Sap Name Role Phone Cornell Bingham MD Unavailable [phone] Shruthi Modi MD Primary Care Provider [phone] David Beltran DO Unavailable [phone] Xiomara Hernandez NP Unavailable [phone] Domingo Elizabeth MD Unavailable [phone] Dmitry Laguna MD Unavailable Unavailable Encounter Details Date Type Department Care Team (Late st Contact Info) Description 09/07/2022 [email or web address] Message Enc [facility] Multispecialty Care - [facility] 3 [facility], [address] [place] [phone] Gideon Rodriguez MD 3 [place] [address] NSAIDS Social History Tobacco Use Types Packs/Day Years Used Date Smoking Tobacco: Former Cigarettes 0.3 12 0 01/17/2010 - 01/17/2022 Smokeless Tobacco: Never Alcohol Use Standard Drinks/Week Comments Yes 0 (1 standard drink = 0.6 oz pur e alcohol) socially Humiliation, Afraid, Rape, and Kick questionnair e Answer Date Recorded Within the last year, have y ou been afraid of your partner or ex-partner? No 09/01/2022 Within the last year, have y ou been humiliated or emotionally abused in other ways by your partner or ex-partner? No Within the last year, have y ou been kicked, hit, slapped, or otherwise physically hurt by your partner or ex-partner? No 09/01/2022 Within the last year, have y ou been raped or forced to have any kind of sexual activity by your partner or ex-partner? No 09/01/2022 Social Connection and Isolation Panel [NHANES] A nswer Date Recorded In a typical week, how many times do you talk on the phone with family, friends, or neighbors? Patient declined 09/01/2022 How often do you get togethe r with friends or relatives? Patient declined 09/01/2022 How often do you attend orthodoxy or presybeterian serv ices? Patient declined 09/01/2022 Do you belong to any clubs o r organizations such as orthodoxy groups, unions, fraternal or athletic groups, or school groups? Patient declined 09/01/2022 How often do you attend meet ings of the clubs or organizations you belong to? Patient declined 09/01/2022 Are you , , di vorced, , never , or living with a partner? Patient declined 09/01/2022 AUDIT-C Answer Date Recorded Frequency of Alcohol Consumption Monthly or less 07/06/2019 Average Number of Drinks 1 or 2 019 Frequency of Binge Drinking Not on file 06/18 Overall Financial Resource Strain (CARDIA) Answe r Date Recorded How hard is it for you to pa y for the very basics like food, housing, medical care, and heating? Not very hard 09/01/2022 PHQ-2 Answer Date Recorded PHQ-2 Score - If the patient scores above 3, please move on to questions 3-9 0 06/26/2022 [facility] Occupat ional Health - Occupational Stress Questionnaire Answer Date Recorded Do you feel stress - tense, restless, nervous, or anxious, or unable to sleep at night because your mind is troubled all the time - these days? Not at all 09/01/2022 Hunger Vital Sign Answer Date Recorded Within the past 12 months, y ou worried that your food would run out before you got the money to buy more. Never true 09/01/19 23 Within the past 12 months, t he food you bought just didn't last and you didn't have money to get more. Never true 09/01/2022 PRAPARE - Transportation Answer Date Re corded In the past 12 months, has l ack of transportation kept you from medical appointments or from getting medications? No 08/18 In the past 12 months, has l ack of transportation kept you from meetings, work, or from getting things needed for daily living? No 09/01/2022 Housing Stability Vital Sign Answer Tyler e Recorded In the last 12 months, was t here a time when you were not able to pay the mortgage or rent on time? No 09/01/2022 In the last 12 months, how many places have you lived? 1 09/01/2022 In the last 12 months, was t here a time when you did not have a steady place to sleep or slept in a group home (including now)? No 09/01/2022 Comments No Sex and Gender Information Value Date Recorded Sex Assigned at Female 09/01/2024 3:25 PM HOURLY SIGN LANGUAGE INTERPRETER Legal Sex Female 10:56 PM CDT Gender Identity Female 09/04/2021 12:32 PM HOURLY SIGN LANGUAGE INTERPRETER Sexual Orientation Straight 09/04/2021 12 :32 PM HOURLY SIGN LANGUAGE INTERPRETER COVID-19 Exposure Response Date Recorded In the last 10 days, have yo u been in contact with someone who was confirmed or suspected to have Coronavirus/COVID-19? No / Unsure 09/06/2022 2:09 PM HOURLY SIGN LANGUAGE INTERPRETER documented as of this encounter Functional Status * RETIRED Are you deaf or do you have serious difficulty hearing Answer Date of Assessment Author Status No 08/29/2022 3:53 PM HOURLY SIGN LANGUAGE INTERPRETER Activ e * RETIRED Are you blind or do you have serious difficulty seeing, even when wearing glasses? Answer Date of Assessment Author Status No 08/29/2022 3:53 PM HOURLY SIGN LANGUAGE INTERPRETER Activ e * Do you have serious difficulty walking or climbing stairs? Answer Date of Assessment Author Status No 08/29/2022 3:53 PM HOURLY SIGN LANGUAGE INTERPRETER Kathy Ellis RN Active * Do you have difficulty dressing or bathing? Answer Date of Assessment Author Status No 08/29/2022 3:53 PM HOURLY SIGN LANGUAGE INTERPRETER Kathy Ellis RN Active * Because of a physical, mental, or emotional condition, do you have difficulty doing errands alone such as visiting a doctor's office or shopping? Answer Date of Assessment Author Status No 08/29/2022 3:53 PM Kathy Carballo RN Active documented as of this encounter Mental Status * Because of a physical, mental, or emotional condition, do you have serious difficulty concentrating, remembering, or making decisions? Answer Entry Date Author Status No 08/29/2022 3:53 PM Kathy Carballo RN Active documented in this encounter Plan of Treatment Upcoming Encounters Date Type Department Care Team (Late st Contact Info) Description 10/01/2024 8:45 AM HOURLY SIGN LANGUAGE INTERPRETER Appointment [facility] [place] [address] [place] Devries NP [address] [place] [address]. [place] [address] Terese Braga OTR 1 [place] [address] 11/04/2024 9:00 AM CDT Office Visit [facility] Medical Group Mult[facility]pecialty Care - [facility] [address] [facility] [place] [address] Domingo Elizabeth MD 3 [facility] [address] [place] [address] 11/09/2024 1:15 PM CDT Office Visit [facility] THREE [facility], [address] [place] [address] Radha Valente FNP 3 [facility] [address] [place] [address] documented as of this encounter Goals Goal Patient Goal Type Associated Problems Recent Progress Patient-Stated? Author Health - patient able to perform ADLs independently Lifestyle Scott Swift, RN Medications - able to self-administer medications Lifestyle Scott Swift RN documented as of this encounter Visit Diagnoses Not on filedocumented in this encounter Additional Health Concerns Infection Onset Date Last Indicated Resolved Time COVID-19 Rule Out 09/25/2023 09/25/2023 09/25/2023 2:02 PM HOURLY SIGN LANGUAGE INTERPRETER COVID-19 Rule Out 05/26/2024 05/26/2024 05/26/2024 1:58 PM CDT Assessment Noted Time PHQ-9 Depression Total Score: 15 022 2:20 PM CDT documented as of this encounter Care Teams Manager Sap Relationship Specialty Start Date End Date Shruthi Modi MD [address] [place] [address] PCP - General FAMILY PRACTICE 10/18/21 Cornell Bingham MD Three [facility]. [facility] [address] [place] [address] [facility] Specialist CARDIOVASCULAR DISEASE 03/01/19 David Beltran DO [address] [place] [address] [address] [place] [phone] Consulting Physician INTERNAL MEDICINE 07/04/22 Xiomara Hernandez NP [address] [place] [address], [address] [place] [address] NURSE PRACTITIONER GERONTOLOGY 07/04/22 Domingo Elizabeth MD 3 [facility] [address] [place] [address] Consulting Physician Internal Medicine Pulmonary Disease 07/04/22 Dmitry Laguna MD [address] [address] Consulting Physician ENDOCRINOLOGY 07/04/22 documented as of this encounter
--- OUTSIDE RECORDS SUMMARY | 2024-09-30 16:28 | XMS_ITS | Encounter Summary ---
Author Organization [facility] Address [address] [place] [address] Care Team Providers Care Freelance Interpreter/Translator Name Role Phone Cornell Bingham MD Unavailable [phone] Fabrizio Thomason MD Unavailable [phone] Shruthi Modi MD Primary Care Provider [phone] David Beltran DO Unavailable Xiomara Hernandez NP Unavailable [phone] Domingo Elizabeth MD Unavailable [phone] Dmitry Laguna MD Unavailable Unavailable Encounter Details Date Type Department Care Team (Late st Contact Info) Description 05/30/2022 MyChart Message Enc [facility] Medical Group Multispecialty Care - [facility] 3 [facility], [address] [place] [phone] Gideon Rodriguez MD 3 [place], [place] [phone] Neck pain Social History Tobacco Use Types Packs/Day Years Used Date Smoking Tobacco: Former Cigarettes Q uit: 01/17/2010 Smokeless Tobacco: Never Alcohol Use Standard Drinks/Week Comments Yes 0 (1 standard drink = 0.6 oz pur e alcohol) socially AUDIT-C Answer Date Recorded Frequency of Alcohol Consumption Monthly or less 07/06/2019 Average Number of Drinks 1 or 2 019 Frequency of Binge Drinking Not on file 06/18 PHQ-2 Answer Date Recorded PHQ-2 Score - If the patient scores above 3, please move on to questions 3-9 4 02/04/2022 Comments No Sex and Gender Information Value Date Recorded Sex Assigned at Female 09/01/2024 3:25 PM ALL AROUND GEAR MACHINE OPERATOR Legal Sex Female 10:56 PM CDT Gender Identity Female 09/04/2021 12:32 PM ALL AROUND GEAR MACHINE OPERATOR Sexual Orientation Straight 09/04/2021 12 :32 PM ALL AROUND GEAR MACHINE OPERATOR COVID-19 Exposure Response Date Recorded In the last 10 days, have yo u been in contact with someone who was confirmed or suspected to have Coronavirus/COVID-19? No / Unsure 05/30/2022 8:04 AM CDT documented as of this encounter Functional Status * RETIRED Are you deaf or do you have serious difficulty hearing Answer Date of Assessment Author Status No 12/07/2021 4:00 AM CDT Activ e * RETIRED Are you blind or do you have serious difficulty seeing, even when wearing glasses? Answer Date of Assessment Author Status No 12/07/2021 4:00 AM CDT Activ e * Do you have serious difficulty walking or climbing stairs? Answer Date of Assessment Author Status Yes 12/07/2021 4:00 AM CDT Rose De Oliveira R N Active * Do you have difficulty dressing or bathing? Answer Date of Assessment Author Status No 12/07/2021 4:00 AM CDT Rose De Oliveira R N Active * Because of a physical, mental, or emotional condition, do you have difficulty doing errands alone such as visiting a doctor's office or shopping? Answer Date of Assessment Author Status No 12/07/2021 4:00 AM CDT Rose De Oliveira R N Active documented as of this encounter Mental Status * Because of a physical, mental, or emotional condition, do you have serious difficulty concentrating, remembering, or making decisions? Answer Entry Date Author Status No 12/07/2021 4:00 AM CDT Rose De Oliveira R N Active documented in this encounter Progress Notes * Wendy [place] MA - 05/30/2022 3:30 PM CDT Called and advised medication called in and injections should be hold off on due to upcoming surgery. PT VU documented in this encounter Plan of Treatment Upcoming Encounters Date Type Department Care Team (Late st Contact Info) Description 10/01/2024 8:45 AM ALL AROUND GEAR MACHINE OPERATOR Appointment [facility] Outpatient Therapy [place] [address] [place] Devries, JOHN [address] [facility] [place] [address] Terese Braga OTR 1 [place] [address] 11/04/2024 9:00 AM CDT Office Visit [facility] Group Multispecialty Care - [facility] 3 [facility] [place] [address] Domingo Elizabeth MD 3 [facility] [address] [place] [address] 11/09/2024 1:15 PM CDT Office Visit [facility] THREE [facility], [address] [place] [address] Radha Valente FNP 3 [facility] [address] [place] [address] documented as of this encounter Visit Diagnoses Not on filedocumented in this encounter Additional Health Concerns Infection Onset Date Last Indicated Resolved Time COVID-19 Rule Out 09/25/2023 09/25/2023 09/25/2023 2:02 PM ALL AROUND GEAR MACHINE OPERATOR COVID-19 Rule Out 05/26/2024 05/26/2024 05/26/2024 1:58 PM CDT Assessment Noted Time PHQ-9 Depression Total Score: 15 022 2:20 PM CDT documented as of this encounter Care Teams Freelance Interpreter/Translator Relationship Specialty Start Date End Date Shruthi Modi MD [address] [place] [address] PCP - General FAMILY PRACTICE 10/18/21 Cornell Bingham MD [facility] [address] [place] [address] [place] [employer] Appraiser CARDIOVASCULAR DISEASE 03/01/19 [place] [address] [place] [address] [address] [place] [address] Referring Physician MEDICAL ONCOLOGY 12/06/20 07/03/22 David Beltran DO [address] [place] [address] [address] [place] [phone] Consulting Physician INTERNAL MEDICINE 07/04/22 Xiomara Hernandez [employer]DING TRANSPORTATION DRIVER [address] [place] [address], [address] [place] [address] NURSE PRACTITIONER GERONTOLOGY 07/04/22 Domingo Elizabeth MD [address] [facility] [address] [place] [address] Consulting Physician Internal Medicine Pulmonary Disease 07/04/22 Dmitry Laguna MD 3 [facility] [address] [place] [address] Consulting Physician ENDOCRINOLOGY 07/04/22 documented as of this encounter
--- OUTSIDE RECORDS SUMMARY | 2024-09-30 16:28 | XMS_ITS | Encounter Summary ---
Author Organization [facility] Address [address] [place] [address] Care Team Providers Care Automobile Service Advisor Name Role Phone Cornell Bingham MD Unavailable [phone] Shruthi Modi MD Primary Care Provider [phone] David Beltran DO Unavailable [phone] Xiomara Hernandez NP Unavailable [phone] Domingo Elizabeth MD Unavailable Dmitry Laguna MD Unavailable Unavailable Encounter Details Date Type Department Care Team (Late st Contact Info) Description 07/22/2022 [employer] Message [facility] hospital Pre Access Team [address] [place] [address] [place] Provider Appointment Social History Tobacco Use Types Packs/Day Years [...] move on to questions 3-9 0 06/26/2022 Comments No Sex and Gender Information Value Date Recorded Sex Assigned at Female 09/01/2024 3:25 PM PRIVATE BRANCH EXCHANGE INSTALLER Legal Sex Female 10:56 PM CDT Gender Identity Female 09/04/2021 12:32 PM PRIVATE BRANCH EXCHANGE INSTALLER Sexual Orientation Straight 09/04/2021 12 :32 PM PRIVATE BRANCH EXCHANGE INSTALLER COVID-19 Exposure Response Date Recorded In the last 10 days, have yo u been in contact with someone who was confirmed or suspected to have Coronavirus/COVID-19? No / Unsure 07/19/2022 7:39 AM PRIVATE BRANCH EXCHANGE INSTALLER documented as of this encounter Functional Status * RETIRED Are you deaf or do you have serious difficulty hearing Answer Date of Assessment Author Status No 07/08/2022 5:38 PM PRIVATE BRANCH EXCHANGE INSTALLER Activ e * RETIRED Are you blind or do you have serious difficulty seeing, even when wearing glasses? Answer Date of Assessment Author Status No 07/08/2022 5:38 PM PRIVATE BRANCH EXCHANGE INSTALLER Activ e * Do you have serious difficulty walking or climbing stairs? Answer Date of Assessment Author Status No 07/08/2022 5:38 PM PRIVATE BRANCH EXCHANGE INSTALLER Katie Funes RN Active * Do you have difficulty dressing or bathing? Answer Date of Assessment Author Status No 07/08/2022 5:38 PM PRIVATE BRANCH EXCHANGE INSTALLER Katie Funes RN Active * Because of a physical, mental, or emotional condition, do you have difficulty doing errands alone such as visiting a doctor's office or shopping? Answer Date of Assessment Author Status No 07/08/2022 5:38 PM PRIVATE BRANCH EXCHANGE INSTALLER Katie Funes RN Active documented as of this encounter Mental Status * Because of a physical, mental, or emotional condition, do you have serious difficulty concentrating, remembering, or making decisions? Answer Entry Date Author Status No 07/08/2022 5:38 PM PRIVATE BRANCH EXCHANGE INSTALLER Katie Funes RN Active documented in this encounter Plan of Treatment Upcoming Encounters Date Type Department Care Team (Late st Contact Info) Description 10/01/2024 8:45 AM PRIVATE BRANCH EXCHANGE INSTALLER Appointment [facility] [place] [place] [address] [place] eDvries NP [address] [place] [address]. [place] [address] Terese Braga OTR 1 [place] [address] 11/04/2024 9:00 AM CDT Office Visit [facility] Multispecialty Care - [facility] [address] [facility] [place] [address] Domingo Elizabeth MD [address] [facility] [address] [place] [address] 11/09/2024 1:15 PM CDT Office Visit [facility] THREE [facility], [address] [place] [address] Radha Valente FNP 3 [facility] [address] [place] [address] documented as of this encounter Goals Goal Patient Goal Type Associated Problems Recent Progress Patient-Stated? Author Health - patient able to perform ADLs independently Lifestyle No Scott Dos Santos, RN documented as of this encounter Visit Diagnoses Not on filedocumented in this encounter Additional Health Concerns Infection Onset Date Last Indicated Resolved Time COVID-19 Rule Out 09/25/2023 09/25/2023 09/25/2023 2:02 PM PRIVATE BRANCH EXCHANGE INSTALLER COVID-19 Rule Out 05/26/2024 05/26/2024 05/26/2024 1:58 PM CDT Assessment Noted Time PHQ-9 Depression Total Score: 15 022 2:20 PM CDT documented as of this encounter Care Teams Automobile Service Advisor Relationship Specialty Start Date End Date Shruthi Modi MD [address] [place] [address] PCP - General FAMILY PRACTICE 10/18/21 Cornell Bingham MD Three [facility]. [address] [place] [address] [employer] Sales Supervisor CARDIOVASCULAR DISEASE 03/01/19 David Beltran DO [address] [place] [address] [address] [place] [phone] Consulting Physician INTERNAL MEDICINE 07/04/22 Xiomara Hernandez NP [address] [place] [address], [address] [place] [address] NURSE PRACTITIONER GERONTOLOGY 07/04/22 Domingo Elizabeth MD 3 [facility] [address] [place] [address] Consulting Physician Internal Medicine Pulmonary Disease 07/04/22 Dmitry Laguna MD 3 [facility] [address] [place] [address] Consulting Physician ENDOCRINOLOGY 07/04/22 documented as of this encounter
--- OUTSIDE RECORDS SUMMARY | 2024-09-30 16:28 | XMS_ITS | Encounter Summary ---
Author Organization [facility] Address [address] [place] [address] Care Team Providers Care Addictions Counselor Assistant Name Role Phone Cornell Bingham MD Unavailable [phone] Fabrizio Thomason MD Unavailable [phone] Shruthi Modi MD Primary Care Provider [phone] David Beltran DO Unavailable [phone] Xiomara Hernandez NP Unavailable [phone] Domingo Elizabeth MD Unavailable [phone] Dmitry Laguna MD Unavailable Unavailable Encounter Details Date Type Department Care Team (Late st Contact Info) Description 06/13/2022 MyChart Message Enc [facility] Medical Group Multispecialty Care - [facility] 3 [facility], [address] [place] [phone] Gideon Rodriguez MD 3 [place], [place] [phone] AAATTN: CHELSIE- Surgical clearances Social History Tobacco Use Types Packs/Day Years [...] Sex Assigned at Female 09/01/2024 3:25 PM ASBESTOS WIRE FINISHER Legal Sex Female 10:56 PM CDT Gender Identity Female 09/04/2021 12:32 PM ASBESTOS WIRE FINISHER Sexual Orientation Straight 09/04/2021 12 :32 PM ASBESTOS WIRE FINISHER COVID-19 Exposure Response Date Recorded In the last 10 days, have yo u been in contact with someone who was confirmed or suspected to have Coronavirus/COVID-19? No / Unsure 06/12/2022 11:15 AM CDT documented as of this encounter [...] R N Active documented in this encounter Plan of Treatment Upcoming Encounters Date Type Department Care Team (Late st Contact Info) Description 10/01/2024 8:45 AM ASBESTOS WIRE FINISHER Appointment [facility] Outpatient Therapy [address] [facility] [place] [address] [place] Devries, SMALLTALK DEVELOPER [address] [facility] [place] [address] Terese Braga, OTR 1 [place] [address] 11/04/2024 9:00 AM CDT Office Visit [facility] Medical Group Multispecialty Care - [facility] 3 [facility] [address] [place] [address] Domingo Elizabeth MD 3 [facility] [address] [place] [address] 11/09/2024 1:15 PM CDT Office Visit [facility] THREE [facility], [address] [place] [address] Radha Valente FNP 3 [facility] [address] [place] [address] documented as of this encounter Visit Diagnoses Not on filedocumented in this encounter Additional Health Concerns Infection Onset Date Last Indicated Resolved Time COVID-19 Rule Out 09/25/2023 09/25/2023 09/25/2023 2:02 PM ASBESTOS WIRE FINISHER COVID-19 Rule Out 05/26/2024 05/26/2024 05/26/2024 1:58 PM CDT Assessment Noted Time PHQ-9 Depression Total Score: 15 2 022 2:20 PM CDT documented as of this encounter Care Teams Addictions Counselor Assistant Relationship Specialty Start Date End Date Shruthi Modi MD [address] [place] [address] PCP - General FAMILY PRACTICE 10/18/21 Cornell Bingham MD Three [facility] [address] [place] [address] [employer] Operat0R CARDIOVASCULAR DISEASE 03/01/19 [place] [address] [place] [address] [address] [place] [address] Referring Physician MEDICAL ONCOLOGY 12/06/20 07/03/22 David Beltran DO [address] [place] [address] [address] [place] [phone] Consulting Physician INTERNAL MEDICINE 07/04/22 Xiomara Hernandez, SMALLTALK DEVELOPER [address] [place] [address], [address] [place] [address] NURSE PRACTITIONER GERONTOLOGY 07/04/22 Domingo Elizabeth MD 3 [facility] [address] [place] [address] Consulting Physician Internal Medicine Pulmonary Disease 07/04/22 Dmitry Laguna MD 3 [facility] [address] [place] [address] Consulting Physician ENDOCRINOLOGY 07/04/22 documented as of this encounter
--- OUTSIDE RECORDS SUMMARY | 2024-09-30 16:28 | XMS_ITS | Clinical Summary ---
Author Organization [facility] Address [address], [address] [place] [address] Phone Care Team Providers Care Viner Operator Name Role Phone Shruthi Modi MD Primary Care Provider [phone] Fortino Hess MD Unavailable [phone] David Beltran DO Unavailable [phone] Allergies Active Allergy Reactions Criticality Noted Date [...] AT BEDTIME 07/29/20 23 Active Glucose Blood (Identification SolutionsTouch Ultra) Strip USE TO TEST DAILY 09/01/19 [...] Zavegepant HCl (Zavzpret) 10 MG/ACT Solution 1 [place] by Nasal route. 07/07/20 23 025 Discontin [...] Department Care Team Description 09/27/2024 11:45 AM UNPAID INTERN Clinical Support [facility] [address] [phone] Nurse, Cc Sethon Beta thalassemia (HCC) (Primary Dx) 09/27/2024 11:15 AM UNPAID INTERN Office Visit [facility] [address] [phone] Nhung Pickett APRN, PERSONAL SUPPORT WORKER Beta thalassemia (HCC) (Primary Dx); Anemia, unspecified [...] Sex Assigned at Female 09/07/2023 6:16 PM UNPAID INTERN Legal Sex Female 1:02 PM CDT Gender Identity Female 09/07/2023 6:16 PM UNPAID INTERN Sexual Orientation Straight 09/07/2023 6: 16 PM UNPAID INTERN Last Filed Vital Signs Vital Sign Reading Time Taken Comments Blood Pressure 160/100 09/27/2024 12:09 PM UNPAID INTERN Pulse 75 09/27/2024 12:09 PM UNPAID INTERN Temperature 36.6 C (97.8 F) 09/27/2024 12:09 PM UNPAID INTERN Respiratory Rate 18 09/27/2024 12:0 9 PM UNPAID INTERN Oxygen Saturation 98% 09/27/2024 12: 09 PM UNPAID INTERN Inhaled Oxygen Concentration - - Weight 69.3 kg (152 lb 11.2 oz) 025 12:09 PM UNPAID INTERN Height 167.6 cm (5' 6 ) 09/27/2024 12:0 9 PM UNPAID INTERN Body Mass Index 24.65 09/27/2024 12:09 PM UNPAID INTERN Plan of Treatment Upcoming Encounters Date Type Department Care Team (Late st Contact Info) Description 12/27/2024 11:00 AM CDT Office Visit [facility] [address] [phone] David Beltran, [address] [place] [phone] 12/27/2024 11:00 AM CDT Lab [facility] [address] [phone] Nurse, Sierra [facility] Health Maintenance Due Date Last Done Comments [...] AUTO DIFF OH Routine 09/27/2024 11:38 AM UNPAID INTERN VITAMIN B12 Routine 09/27/2024 11:38 AM UNPAID INTERN Anemia, unspecified type Bleeding Other fatigue FOLIC ACID (FOLATE) Routine 09/27/2024 1 1:38 AM UNPAID INTERN Anemia, unspecified type Bleeding Other fatigue FERRITIN Routine 09/27/2024 11:38 AM UNPAID INTERN Anemia, unspecified type Bleeding Other fatigue IRON W/ IRON BINDING CAPACITY OH Routine 09/27/2024 11:38 AM UNPAID INTERN Anemia, unspecified type Bleeding Other fatigue from Last 3 Months Results * IRON W/ IRON BINDING CAPACITY [place] (09/27/2024 11:38 AM UNPAID INTERN) IRON 162 50 - 212 ug/dL CANCER AUTOMOTIVE COLLISION REPAIR INSTRUCTOR [facility] UIBC 262 155 - 355 ug/dL CANCER AUTOMOTIVE COLLISION REPAIR INSTRUCTOR [facility] TIBC 424 261 - 478 ug/dl [facility] % Saturation 38 20 - 50 % CANCER AUTOMOTIVE COLLISION REPAIR INSTRUCTOR [facility] 09/27/2024 11:3 8 AM UNPAID INTERN Narrative [facility] - 09/27/2024 1:05 PM UNPAID INTERN Release to patient->Immediate us Nisreen Atkinson MINE SAFETY DIRECTOR, PERSONAL SUPPORT WORKER LAB SEND OUTS Fin al Result CANCER AUTOMOTIVE COLLISION REPAIR INSTRUCTOR [facility] [place] [address], * (ABNORMAL) CBC WITH AUTO DIFF [place] (09/27/2024 11:38 AM UNPAID INTERN) WBC 5.8 4.0 - 10.0 10*3/uL CANCER AUTOMOTIVE COLLISION REPAIR INSTRUCTOR [facility] HGB 11.1(L) 11.2 - 15.7 g/dL CANCER AUTOMOTIVE COLLISION REPAIR INSTRUCTOR [facility] HCT 35.7 34.1 - 44.9 % CANCER AUTOMOTIVE COLLISION REPAIR INSTRUCTOR [facility] PLT 232 163 - 369 10*3/uL CANCER AUTOMOTIVE COLLISION REPAIR INSTRUCTOR [facility] MPV See below 9.4 - 12.4 fL CANCER AUTOMOTIVE COLLISION REPAIR INSTRUCTOR [facility] Comment:Instrument unable to provide an accurate result RBC 5.41(H) 3.93 - 5.22 10*6/uL CANCER AUTOMOTIVE COLLISION REPAIR INSTRUCTOR [facility] MCV 66(L) 79 - 95 fL CANCER AUTOMOTIVE COLLISION REPAIR INSTRUCTOR [facility] MCH 20.5(L) 25.6 - 32.2 pg CANCER AUTOMOTIVE COLLISION REPAIR INSTRUCTOR [facility] MCHC 31.1(L) 32.2 - 36.5 g/dL CANCER AUTOMOTIVE COLLISION REPAIR INSTRUCTOR [facility] RDW 17.5(H) 11.6 - 14.4 % CANCER AUTOMOTIVE COLLISION REPAIR INSTRUCTOR [facility] Neutrophils % 66.2(H) 36.0 - 66.0 % CANCER AUTOMOTIVE COLLISION REPAIR INSTRUCTOR [facility] Lymphocytes % 24.1 19.0 - 40.0 % CANCER AUTOMOTIVE COLLISION REPAIR INSTRUCTOR [facility] Monocytes % 7.7 4.1 - 12.1 % CANCER AUTOMOTIVE COLLISION REPAIR INSTRUCTOR [facility] Eosinophils % 1.2 0.0 - 3.5 % CANCER AUTOMOTIVE COLLISION REPAIR INSTRUCTOR [facility] Basophils % 0.3 0.0 - 1.0 % CANCER AUTOMOTIVE COLLISION REPAIR INSTRUCTOR [facility] Absolute Neutrophils 3.8 1.4 - 6.6 10*3/uL CANCER AUTOMOTIVE COLLISION REPAIR INSTRUCTOR [facility] Absolute Lymphocytes 1.4 0.8 - 4.0 10*3/uL CANCER AUTOMOTIVE COLLISION REPAIR INSTRUCTOR [facility] Absolute Monocytes 0.5 0.2 - 1.2 10*3/uL CANCER AUTOMOTIVE COLLISION REPAIR INSTRUCTOR [facility] Absolute Eosinophils 0.1 0.0 - 0.4 10*3/uL CANCER AUTOMOTIVE COLLISION REPAIR INSTRUCTOR [facility] Absolute Basophils 0.0 0.0 - 0.1 10*3/uL CANCER AUTOMOTIVE COLLISION REPAIR INSTRUCTOR [facility] WBC Estimate Normal CANCER AUTOMOTIVE COLLISION REPAIR INSTRUCTOR [facility] Platelet Estimate Normal CA NCER AUTOMOTIVE COLLISION REPAIR INSTRUCTOR [facility] RBC Morphology Abnormal CANCE R AUTOMOTIVE COLLISION REPAIR INSTRUCTOR [facility] Microcytosis 2+ CANCER AUTOMOTIVE COLLISION REPAIR INSTRUCTOR [facility] Hypochromasia 2+ CANCER AUTOMOTIVE COLLISION REPAIR INSTRUCTOR [facility] Anisocytosis 1+ CANCER AUTOMOTIVE COLLISION REPAIR INSTRUCTOR [facility] Poikilocytosis 1+ CANCE R AUTOMOTIVE COLLISION REPAIR INSTRUCTOR [facility] Target Cells 1+ CANCER AUTOMOTIVE COLLISION REPAIR INSTRUCTOR [facility] Elliptocytes 1+ CANCER AUTOMOTIVE COLLISION REPAIR INSTRUCTOR [facility] Schistocytes 1+ CANCER AUTOMOTIVE COLLISION REPAIR INSTRUCTOR [facility] 09/27/2024 11:3 8 AM UNPAID INTERN us Nisreen Atkinson APRN, PERSONAL SUPPORT WORKER LAB SEND OUTS Fin al Result CANCER AUTOMOTIVE COLLISION REPAIR INSTRUCTOR [facility] [place] [address], * VITAMIN B12 (09/27/2024 11:38 AM UNPAID INTERN) Vitamin B12 625 180 - 914 pg/mL CANCER AUTOMOTIVE COLLISION REPAIR INSTRUCTOR [facility] Blood 09/27/2024 11:3 8 AM UNPAID INTERN Narrative [facility] - 09/28/2024 3:26 PM UNPAID INTERN Release to patient->Immediate us Nisreen E Bertaattei MINE SAFETY DIRECTOR, PERSONAL SUPPORT WORKER CHEMISTRY ORDERABLE S Final Result Performing Organization Address City/[facility]/ZIP Co de Phone Number CANCER AUTOMOTIVE COLLISION REPAIR INSTRUCTOR [facility] [address] [place] [address], [place] [phone] * FOLIC ACID (FOLATE) (09/27/2024 11:38 AM UNPAID INTERN) Folate >20.00 >=5.90 ng/mL CANCER AUTOMOTIVE COLLISION REPAIR INSTRUCTOR [facility] Blood 09/27/2024 11:3 8 AM UNPAID INTERN Narrative [facility] - 09/28/2024 3:26 PM UNPAID INTERN Release to patient->Immediate IS THE PATIENT REQUIRED TO BE FASTING FOR 12 HOURS?->No us Nisreen Atkinson MINE SAFETY DIRECTOR, PERSONAL SUPPORT WORKER CHEMISTRY ORDERABLE S Final Result Performing Organization Address [facility] Co de Phone Number CANCER AUTOMOTIVE COLLISION REPAIR INSTRUCTOR [facility] [address] [place] [address], [place] [phone] * FERRITIN (09/27/2024 11:38 AM UNPAID INTERN) Ferritin 160 11 - 307 ng/mL [facility] Blood 09/27/2024 11:3 8 AM UNPAID INTERN [facility] CANCER AUTOMOTIVE COLLISION [facility] - 09/28/2024 3:26 PM UNPAID INTERN Release to patient->Immediate us Nisreen E Bertaattei MINE SAFETY DIRECTOR, PERSONAL SUPPORT WORKER CHEMISTRY ORDERABLE S Final Result Performing Organization Address City/[facility]/ZIP Co de Phone Number CANCER AUTOMOTIVE COLLISION REPAIR INSTRUCTOR [facility] [address] [place] [address], [place] [phone] from Last [address] [facility] Care Teams Viner Operator Relationship Specialty Start Date End Date Shruthi Modi MD [address] [place] [address] PCP - General Family Medicine 01/11/22 Fortino Hess MD [address] [place] [phone] Consulting Physician Oncology 01/11/22 David Beltran DO [address] [place] [address] Consulting Physician Oncology 09/02/23
--- OUTSIDE RECORDS SUMMARY | 2024-09-30 16:28 | XMS_ITS | Encounter Summary ---
Author Organization [facility] Address [address] [place] [address] Care Team Providers Care Personal Development Coach Name Role Phone Cornell Bingham MD Unavailable [phone] Shruthi Modi MD Primary Care Provider [phone] David Beltran DO Unavailable [phone] Xiomara Hernandez NP Unavailable [phone] Domingo Elizabeth MD Unavailable [phone] Dmitry Laguna MD Unavailable Unavailable Encounter Details Date Type Department Care Team (Late st Contact Info) Description 09/03/2022 MyChart Message Enc [facility] Diabetes [facility] Endocrinology - [place] [address] [facility] [address] [place], [place] [phone] Dmitry Laguna MD ER visit Social History Tobacco Use Types Packs/Day Years [...] declined 09/01/2022 How often do you attend buddhism or hoahaoism serv ices? Patient declined 09/01/2022 Do you belong to any clubs o r organizations such as buddhism groups, unions, fraternal or athletic groups, or [...] move on to questions 3-9 0 06/26/2022 [facility] [place] of Occupat ional Health - Occupational Stress [...] place to sleep or slept in a half-way (including now)? No 09/01/2022 Comments No Sex and Gender Information Value Date Recorded Sex Assigned at Female 09/01/2024 3:25 PM CUSTOM CLOTHIER Legal Sex Female 10:56 PM CDT Gender Identity Female 09/04/2021 12:32 PM CUSTOM CLOTHIER Sexual Orientation Straight 09/04/2021 12 :32 PM CUSTOM CLOTHIER COVID-19 Exposure Response Date Recorded In the last 10 days, have yo u been in contact with someone who was confirmed or suspected to have Coronavirus/COVID-19? No / Unsure 09/06/2022 2:09 PM CUSTOM CLOTHIER documented as of this encounter Functional Status * RETIRED Are you deaf or do you have serious difficulty hearing Answer Date of Assessment Author Status No 08/29/2022 3:53 PM CUSTOM CLOTHIER Activ e * RETIRED Are you blind or do you have serious difficulty seeing, even when wearing glasses? Answer Date of Assessment Author Status No 08/29/2022 3:53 PM CUSTOM CLOTHIER Activ e * Do you have serious difficulty walking or climbing stairs? Answer Date of Assessment Author Status No 08/29/2022 3:53 PM CUSTOM CLOTHIER Kathy Ellis RN Active * Do you have difficulty dressing or bathing? Answer Date of Assessment Author Status No 08/29/2022 3:53 PM CUSTOM CLOTHIER Kathy Ellis RN Active * Because of a physical, mental, or emotional condition, do you have difficulty doing errands alone such as visiting a doctor's office or shopping? Answer Date of Assessment Author Status No 08/29/2022 3:53 PM CUSTOM CLOTHIER Kathy Ellis RN Active documented as of this encounter Mental Status * Because of a physical, mental, or emotional condition, do you have serious difficulty concentrating, remembering, or making decisions? Answer Entry Date Author Status No 08/29/2022 3:53 PM CUSTOM CLOTHIER Kathy Ellis RN Active documented in this encounter Plan of Treatment Upcoming Encounters Date Type Department Care Team (Late st Contact Info) Description 10/01/2024 8:45 AM CUSTOM CLOTHIER Appointment [facility] [place] [address] [place] [address] Orlando Devries NP [address] [place] [address]. [place] [address] Terese Braga O[address] [place] [address] 11/04/2024 9:00 AM CDT Office Visit [facility] Multispecialty Care - [facility] [address] [place] [address] Domingo Elizabeth MD [address] [place] [address] 11/09/2024 1:15 PM CDT Office Visit [facility] THREE [facility], [address] [place], [place] [phone] Radha Valente FNP [address] [facility] [address] [place], [place] [phone] documented as of this encounter Goals Goal Patient Goal Type Associated Problems Recent Progress Patient-Stated? Author Health - patient able to perform ADLs independently Lifestyle Scott Swift, RN Medications - able to self-administer medications Lifestyle No Scott Dos Santos, RN documented as of this encounter Visit Diagnoses Not on filedocumented in this encounter Additional Health Concerns Infection Onset Date Last Indicated Resolved Time COVID-19 Rule Out 09/25/2023 09/25/2023 09/25/2023 2:02 PM CUSTOM CLOTHIER COVID-19 Rule Out 05/26/2024 05/26/2024 05/26/2024 1:58 PM CDT Assessment Noted Time PHQ-9 Depression Total Score: 15 022 2:20 PM CDT documented as of this encounter Care Teams Personal Development Coach Relationship Specialty Start Date End Date Shruthi Modi MD [facility] [place] [address] PCP - General FAMILY PRACTICE 10/18/21 Cornell Bingham MD Three [facility]. [facility] [address] [place] [address] [place] [employer] CARDIOVASCULAR DISEASE 03/01/19 David Beltran DO [address] [place] [phone] Consulting Physician INTERNAL MEDICINE 07/04/22 Xiomara Hernandez NP [address] [place] [address], [address] [place] [address] NURSE PRACTITIONER GERONTOLOGY 07/04/22 Domingo Elizabeth MD [address] [facility] [address] [place] [address] Consulting Physician Internal Medicine Pulmonary Disease 07/04/22 Dmitry Laguna MD 3 [facility] [address] [place] [address] Consulting Physician ENDOCRINOLOGY 07/04/22 documented as of this encounter
--- OUTSIDE RECORDS SUMMARY | 2024-09-30 16:28 | XMS_ITS | Encounter Summary ---
Author Organization [facility] Address [facility] [place] [address] Care Team Providers Care Cartridge Loader Name Role Phone Cornell Bingham MD Unavailable [phone] Shruthi Modi MD Primary Care Provider [phone] David Beltran DO Unavailable [phone] Xiomara Hernandez NP Unavailable [phone] Domingo Elizabeth MD Unavailable [phone] Dmitry Laguna MD Unavailable Unavailable Encounter Details Date Type Department Care Team (Late st Contact Info) Description 06/21/2024 [employer] Message Enc [facility] THREE [facility], [facility] [place] [address] [place], [place] [phone] Cornell Bignham MD Three [facility]. [facility] [place] [address] [place] [address] [place] Social History Tobacco Use Types Packs/Day Years Used Date Smoking Tobacco: Former Cigarettes 0.9 25 0 01/17/2010 - 01/17/2022 Passive Smoke Exposure: Past Smokeless Tobacco: Never Comments:Quit Date January 2022 . Alcohol Use Standard Drinks/Week Comments Yes 0 (1 standard drink = 0.6 oz pure alcohol) I usually only drink alcohol on special/holidays Humiliation, Afraid, Rape, and Kick questionnair e [...] declined 09/01/2022 How often do you attend christianity or worship serv ices? Patient declined 09/01/2022 Do you belong to any clubs o r organizations such as christianity groups, unions, fraternal or athletic groups, or [...] very hard 09/01/2022 PHQ-2 Answer Date Recorded Patient Health Questionnaire-2 Score 4 06/17/2024 [facility] of Occupat ional Health - Occupational Stress [...] place to sleep or slept in a detention (including now)? No 09/01/2022 Comments No Sex and Gender Information Value Date Recorded Sex Assigned at Female 09/01/2024 3:25 PM STOCKROOM KEEPER Legal Sex Female 10:56 PM CDT Gender Identity Female 09/04/2021 12:32 PM STOCKROOM KEEPER Sexual Orientation Straight 09/04/2021 12 :32 PM STOCKROOM KEEPER documented as of this encounter Functional Status * RETIRED Are you deaf or do you have serious difficulty hearing Answer Date of Assessment Author Status No 08/29/2022 3:53 PM STOCKROOM KEEPER Activ e * RETIRED Are you blind or do you have serious difficulty seeing, even when wearing glasses? Answer Date of Assessment Author Status No 08/29/2022 3:53 PM STOCKROOM KEEPER Activ e * Do you have serious difficulty walking or climbing stairs? Answer Date of Assessment Author Status No 08/29/2022 3:53 PM STOCKROOM KEEPER Kathy Ellis RN Active * Do you have difficulty dressing or bathing? Answer Date of Assessment Author Status No 08/29/2022 3:53 PM STOCKROOM KEEPER Kathy Ellis RN Active * Because of a physical, mental, or emotional condition, do you have difficulty doing errands alone such as visiting a doctor's office or shopping? Answer Date of Assessment Author Status No 08/29/2022 3:53 PM STOCKROOM KEEPER Kathy Ellis RN Active documented as of this encounter Mental Status * Because of a physical, mental, or emotional condition, do you have serious difficulty concentrating, remembering, or making decisions? Answer Entry Date Author Status No 08/29/2022 3:53 PM STOCKROOM KEEPER Kathy Ellis RN Active documented in this encounter Plan of Treatment Upcoming Encounters Date Type Department Care Team (Late st Contact Info) Description 10/01/2024 8:45 AM STOCKROOM KEEPER Appointment [facility] [place]patient [place] [address] Orlando Devries NP [address] [place] [address]. [place] [address] Terese Braga, [address] [place] [address] 11/04/2024 9:00 AM CDT Office Visit [facility] Multispecialty Care - [facility] [address] [facility] [address] [place] [phone] Domingo Elizabeth MD [address] [facility] [address] [place], [place] [address] 11/09/2024 1:15 PM CDT Office Visit [facility] THREE [facility], [address] [place], [place] [address] Radha Valente FNP 3 [facility] [address] [place], [place] [phone] documented as of this encounter Goals Goal Patient Goal Type Associated Problems Recent Progress Patient-Stated? Author Health - patient able to perform ADLs independently Lifestyle Scott Swift, RN Medications - able to self-administer medications Lifestyle No Scott Dos Santos, RN documented as of this encounter Visit Diagnoses Not on filedocumented in this encounter Additional Health Concerns Assessment Noted Time PHQ-9 Depression Total Score: 17 024 8:48 AM CDT documented as of this encounter Care Teams Cartridge Loader Relationship Specialty Start Date End Date Shruthi Modi MD [address] [place] [address] PCP - General FAMILY PRACTICE 10/18/21 Cornell Bingham MD Three [facility]. [facility] [place] [address] [place] [address] [place] Barrel Lathe Operator CARDIOVASCULAR DISEASE 03/01/19 David Beltran DO [address] [place] [address] [address] [place] [phone] Consulting Physician INTERNAL MEDICINE 07/04/22 Xiomara Hernandez, CONCRETE BATCHER [address] [place] [address], [address] [place] [address] NURSE PRACTITIONER GERONTOLOGY 07/04/22 Domingo Elizabeth MD 3 [facility] [address] [place] [address] Consulting Physician Internal Medicine Pulmonary Disease 07/04/22 Dmitry Laguna MD 3 [facility] [address] [place] [address] Consulting Physician ENDOCRINOLOGY 07/04/22 documented as of this encounter
--- OUTSIDE RECORDS SUMMARY | 2024-09-30 16:28 | XMS_ITS | Encounter Summary ---
Author Organization [facility] Address [address] [place] [address] Care Team Providers Care Sample Distributor Name Role Phone Cornell Bingham MD Unavailable [phone] Fabrizio Thomason MD Unavailable [phone] Shruthi Modi MD Primary Care Provider [phone] David Beltran DO Unavailable [phone] Xiomara Hernandez NP Unavailable [phone] Domingo Elizabeth MD Unavailable [phone] Dmitry Laguna MD Unavailable Unavailable Encounter Details Date Type Department Care Team (Late st Contact Info) Description 06/13/2022 MyChart Message Enc [facility] Multispecialty Care - [facility] 3 [facility], [address] [place] [phone] Gideon Rodriguez MD 3 [place], [place] [phone] ATTN: Wendy-surgical clearance Social History Tobacco Use Types Packs/Day Years [...] Sex Assigned at Female 09/01/2024 3:25 PM ONYX CHIP TERRAZZO WORKER Legal Sex Female 10:56 PM CDT Gender Identity Female 09/04/2021 12:32 PM ONYX CHIP TERRAZZO WORKER Sexual Orientation Straight 09/04/2021 12 :32 PM ONYX CHIP TERRAZZO WORKER COVID-19 Exposure Response Date Recorded In the [...] st Contact Info) Description 10/01/2024 8:45 AM ONYX CHIP TERRAZZO WORKER Appointment [facility] Outpatient Therapy [address] [facility] [place] [address] Orlando Devries, TIMBER TREATING TANK OPERATOR [address] [facility] [place] [address] Terese Braga, OTR 1 [place] [address] 11/04/2024 9:00 AM CDT Office Visit [facility] Mult[facility]pecialty Care - [facility] 3 [facility] [place] [address] Domingo Elizabeth MD 3 [facility] [address] [place] [address] 11/09/2024 1:15 PM CDT Office Visit [facility] THREE [facility], [address] [place] [address] Radha Valente FNP 3 [facility] [address] [place] [address] documented as of this encounter Visit Diagnoses Not on filedocumented in this encounter Additional Health Concerns Infection Onset Date Last Indicated Resolved Time COVID-19 Rule Out 09/25/2023 09/25/2023 09/25/2023 2:02 PM ONYX CHIP TERRAZZO WORKER COVID-19 Rule Out 05/26/2024 05/26/2024 05/26/2024 1:58 PM CDT Assessment Noted Time PHQ-9 Depression Total Score: 15 022 2:20 PM CDT documented as of this encounter Care Teams Sample Distributor Relationship Specialty Start Date End Date Shruthi Modi MD [address] [place] [address] PCP - General FAMILY PRACTICE 10/18/21 Cornell Bingham MD Three [facility]. [address] [place] [address] [employer] Volleyball Coach CARDIOVASCULAR DISEASE 03/01/19 Fabrizio Thomason MD [address] [place] [address] [address] [place] [address] Referring Physician MEDICAL ONCOLOGY 12/06/20 07/03/22 David Beltran DO [address] [place] [address] [address] [place] [phone] Consulting Physician INTERNAL MEDICINE 07/04/22 Xiomara Hernandez, TIMBER TREATING TANK OPERATOR [address] [place] [address], [address] [place] [address] NURSE PRACTITIONER GERONTOLOGY 07/04/22 Domingo Elizabeth MD 3 [facility] [address] [place] [address] Consulting Physician Internal Medicine Pulmonary Disease 07/04/22 Dmitry Laguna MD 3 [facility] [address] [place] [address] Consulting Physician ENDOCRINOLOGY 07/04/22 documented as of this encounter
--- OUTSIDE RECORDS SUMMARY | 2024-09-30 16:28 | XMS_ITS | Encounter Summary ---
Author Organization [facility] Address [address] [place] [address] Care Team Providers Care Personal Vehicle Advisor Name Role Phone Cornell Bingham MD Unavailable [phone] Shruthi Modi MD Primary Care Provider [phone] David Beltran DO Unavailable [phone] Xiomara Hernandez NP Unavailable [phone] Domingo Elizabeth MD Unavailable [phone] Dmitry Laguna MD Unavailable Unavailable Encounter Details Date Type Department Care Team (Late st Contact Info) Description 07/16/2022 Hospital Follow-up Call [facility] Med/Surg 3rd Floor [address] [place], [place] [id number] Katie Funes, RN Social History Tobacco Use Types Packs/Day Years [...] Sex Assigned at Female 09/01/2024 3:25 PM DAY CARE AIDE Legal Sex Female 10:56 PM CDT Gender Identity Female 09/04/2021 12:32 PM DAY CARE AIDE Sexual Orientation Straight 09/04/2021 12 :32 PM DAY CARE AIDE COVID-19 Exposure Response Date Recorded In the last 10 days, have yo u been in contact with someone who was confirmed or suspected to have Coronavirus/COVID-19? No / Unsure 07/19/2022 7:39 AM DAY CARE AIDE documented as of this encounter Functional Status * RETIRED Are you deaf or do you have serious difficulty hearing Answer Date of Assessment Author Status No 07/08/2022 5:38 PM DAY CARE AIDE Activ e * RETIRED Are you blind or do you have serious difficulty seeing, even when wearing glasses? Answer Date of Assessment Author Status No 07/08/2022 5:38 PM DAY CARE AIDE Activ e * Do you have serious difficulty walking or climbing stairs? Answer Date of Assessment Author Status No 07/08/2022 5:38 PM DAY CARE AIDE Katie Funes RN Active * Do you have difficulty dressing or bathing? Answer Date of Assessment Author Status No 07/08/2022 5:38 PM DAY CARE AIDE Katie Funes RN Active * Because of a physical, mental, or emotional condition, do you have difficulty doing errands alone such as visiting a doctor's office or shopping? Answer Date of Assessment Author Status No 07/08/2022 5:38 PM DAY CARE AIDE Katie Funes RN Active documented as of this encounter Mental Status * Because of a physical, mental, or emotional condition, do you have serious difficulty concentrating, remembering, or making decisions? Answer Entry Date Author Status No 07/08/2022 5:38 PM DAY CARE AIDE Katie Funes RN Active documented in this encounter Plan of Treatment Upcoming Encounters Date Type Department Care Team (Late st Contact Info) Description 10/01/2024 8:45 AM DAY CARE AIDE Appointment [facility] Outpatient [place] [address] [place] [address] Orlando Devries NP [address] [place] [address]. [place] [address] Terese Braga, MAGOR 1 [place] [address] 11/04/2024 9:00 AM CDT Office Visit [facility] Mult[facility]pecialty Care - [facility] 3 [facility] [place] [address] Domingo Elizabeth MD 3 [facility] [address] [place] [address] 11/09/2024 1:15 PM CDT Office Visit [facility] THREE [facility], [address] [place] [address] Radha Valente FNP 3 [facility] [address] [place] [address] documented as of this encounter Goals Goal Patient Goal Type Associated Problems Recent Progress Patient-Stated? Author Health - patient able to perform ADLs independently Lifestyle No Scott Dos Santos, RN documented as of this encounter Visit Diagnoses Not on filedocumented in this encounter Additional Health Concerns Infection Onset Date Last Indicated Resolved Time COVID-19 Rule Out 09/25/2023 09/25/2023 09/25/2023 2:02 PM DAY CARE AIDE COVID-19 Rule Out 05/26/2024 05/26/2024 05/26/2024 1:58 PM CDT Assessment Noted Time PHQ-9 Depression Total Score: 15 022 2:20 PM CDT documented as of this encounter Care Teams Personal Vehicle Advisor Relationship Specialty Start Date End Date Shruthi Modi MD [address] [place] [address] PCP - General FAMILY PRACTICE 10/18/21 Cornell Bingham MD Three [facility]. [address] [place] [address] [place] Director Business Management CARDIOVASCULAR DISEASE 03/01/19 David Beltran DO [address] [place] [address] [address] [place] [address] Consulting Physician INTERNAL MEDICINE 07/04/22 Xiomara Hernandez NP [address] [place] [address], [address] [place] [address] NURSE PRACTITIONER GERONTOLOGY 07/04/22 Domingo Elizbaeth MD 3 [facility] [address] [place] [address] Consulting Physician Internal Medicine Pulmonary Disease 07/04/22 Dmitry Laguna MD 3 [facility] [address] [place] [address] Consulting Physician ENDOCRINOLOGY 07/04/22 documented as of this encounter
--- OUTSIDE RECORDS SUMMARY | 2024-09-30 16:28 | XMS_ITS | Encounter Summary ---
Author Organization [facility] Address [address] [place] [address] Care Team Providers Care Bleach Chlorinator Name Role Phone Cornell Bingham MD Unavailable [phone] Shruthi Modi MD Primary Care Provider [phone] David Beltran DO Unavailable [phone] Xiomara Hernandez NP Unavailable [phone] Domingo Elizabeth MD Unavailable [phone] Dmitry Laguna MD Unavailable Unavailable Encounter Details Date Type Department Care Team (Late st Contact Info) Description 09/19/[id number] [facility] Diabetes and Endocrinology - [facility] [address] [facility] [address] [place], [place] [id number] Dmitry Laguna MD Januvia Social History Tobacco Use Types Packs/Day Years [...] declined 09/01/2022 How often do you attend mandaen or caodaism serv ices? Patient declined 09/01/2022 Do you belong to any clubs o r organizations such as mandaen groups, unions, fraternal or athletic groups, or [...] Answer Date Recorded Patient Health Questionnaire-2 Score 0 09/12/2022 [facility] - Occupational Stress [...] place to sleep or slept in a snf (including now)? No 09/01/2022 Comments No Sex and Gender Information Value Date Recorded Sex Assigned at Female 09/01/2024 3:25 PM FIN[employer]CIAL SERVICES INTERNSHIP Legal Sex Female 10:56 PM CDT Gender Identity Female 09/04/2021 12:32 PM [employer] INTER[employer] Sexual Orientation Straight 09/04/2021 12 :32 PM FIN[employer]CIAL SERVICES INTERNS[employer]IP COVID-19 Exposure Response Date Recorded In the last 10 days, have yo u been in contact with someone who was confirmed or suspected to have Coronavirus/COVID-19? No / Unsure 09/16/2022 11:55 AM FINANCIAL SERVICES INTERNSHIP documented as of this encounter Functional Status * RETIRED Are you deaf or do you have serious difficulty hearing Answer Date of Assessment Author Status No 08/29/2022 3:53 PM FIN[employer]CIAL SERVICES INTERNSHIP Activ e * RETIRED Are you blind or do you have serious difficulty seeing, even when wearing glasses? Answer Date of Assessment Author Status No 08/29/2022 3:53 PM FIN[employer]CIAL SERVICES INTERNSHIP Activ e * Do you have serious difficulty walking or climbing stairs? Answer Date of Assessment Author Status No 08/29/2022 3:53 PM [employer] INTERNS[employer]IP Kathy Ellis RN Active * Do you have difficulty dressing or bathing? Answer Date of Assessment Author Status No 08/29/2022 3:53 PM [employer] INTERNS[employer]IP Kathy Ellis RN Active * Because of a physical, mental, or emotional condition, do you have difficulty doing errands alone such as visiting a doctor's office or shopping? Answer Date of Assessment Author Status No 08/29/2022 3:53 PM FIN[employer] SERVICES INTERNS[employer]IP Kathy Ellis RN Active documented as of this encounter Mental Status * Because of a physical, mental, or emotional condition, do you have serious difficulty concentrating, remembering, or making decisions? Answer Entry Date Author Status No 08/29/2022 3:53 PM [employer] INTERNS[employer]IP Kathy Ellis RN Active documented in this encounter Plan of Treatment Upcoming Encounters Date Type Department Care Team (Late st Contact Info) Description 10/01/2024 8:45 AM FINANCIAL SERVICES INTERNSHIP Appointment [facility] [place] [address] Orlando Devries NP [address] [place] [address]. [place] [address] Terese Braga OTR 1 [place], [place] [address] 11/04/2024 9:00 AM CDT Office Visit [facility] Multispecialty Care - [facility] [address] [facility] [place] [phone] Domingo Elizabeth MD 3 [facility] [address] [place], [place] [address] 11/09/2024 1:15 PM CDT Office Visit [facility] THREE [facility], [address] [place], [place] [address] Radha Valente FNP 3 [facility] [address] [place], [place] [id number] documented as of this encounter Goals Goal Patient Goal Type Associated Problems Recent Progress Patient-Stated? Author Health - patient able to perform ADLs independently Lifestyle Scott Swift, RN Medications - able to self-administer medications Lifestyle No Scott Dos Santos RN documented as of this encounter Visit Diagnoses Not on filedocumented in this encounter Additional Health Concerns Infection Onset Date Last Indicated Resolved Time COVID-19 Rule Out 09/25/2023 09/25/2023 09/25/2023 2:02 PM [employer] INTERNS[employer]IP COVID-19 Rule Out 05/26/2024 05/26/2024 05/26/2024 1:58 PM CDT Assessment Noted Time PHQ-9 Depression Total Score: 15 022 2:20 PM CDT documented as of this encounter Care Teams Bleach Chlorinator Relationship Specialty Start Date End Date Shruthi Modi MD [facility] [place] [address] PCP - General FAMILY PRACTICE 10/18/21 Cornell Bingham MD Three [facility]. [facility] [address] [place] [address] Colp Mold Worker CARDIOVASCULAR DISEASE 03/01/19 David Beltran DO [address] [place] [phone] Consulting Physician INTERNAL MEDICINE 07/04/22 Xiomara Hernandez NP [address] [place] [address], [address] [place] [address] NURSE PRACTITIONER GERONTOLOGY 07/04/22 Domingo Elizabeth MD 3 [facility] [address] [place] [address] Consulting Physician Internal Medicine Pulmonary Disease 07/04/22 Dmitry Laguna MD [address] [address] Consulting Physician ENDOCRINOLOGY 07/04/22 documented as of this encounter
--- OUTSIDE RECORDS SUMMARY | 2024-09-30 16:28 | XMS_ITS | Encounter Summary ---
Author Organization [facility] Address [address] [place] [address] Care Team Providers Care Jewel Corner Brushing Machine Operator Name Role Phone Cornell Bingham MD Unavailable [phone] Chris Mahmood DO Primary Care Provider [phone] Fabrizio Thomason MD Unavailable [phone] Shruthi Modi MD Primary Care Provider [phone] David Beltran DO Unavailable [phone] Xiomara Hernandez NP Unavailable [phone] Domingo Elizabeth MD Unavailable [phone] Dmitry Laguna MD Unavailable Unavailable Encounter Details Date Type Department Care Team (Late st Contact Info) Description 12/14/2020 Prep for Procedure [facility] Pre-Admission Testing [place], [place] [address] Justo Badillo MD [address] [place], [place] [phone] Social History Tobacco Use Types Packs/Day Years Used Date Smoking Tobacco: Every Day Cigarettes 0.3 8 Smokeless Tobacco: Never Comments:started smoking age 42, was 1 ppd, has decreased to 1 ppd Alcohol Use Standard Drinks/Week Comments Yes 0 (1 standard drink = 0.6 oz pure alcohol) less than 1 glass of wine a month AUDIT-C Answer Date Recorded Frequency of Alcohol Consumption Monthly or less 07/06/2019 Average Number of Drinks 1 or 2 019 Frequency of Binge Drinking Not on file 06/18 PHQ-2 Answer Date Recorded PHQ-2 Score - If the patient scores above 3, please move on to questions 3-9 1 08/23/2020 Comments No Sex and Gender Information Value Date Recorded Sex Assigned at Female 09/01/2024 3:25 PM INSTRUCTIONAL COACH Legal Sex Female 10:56 PM CDT Gender Identity Female 09/04/2021 12:32 PM INSTRUCTIONAL COACH Sexual Orientation Straight 09/04/2021 12 :32 PM INSTRUCTIONAL COACH COVID-19 Exposure Response Date Recorded In the last month, have you been in contact with someone who was confirmed or suspected to have Coronavirus / COVID-19? No / Unsure 12/06/2020 9:44 AM CDT documented as of this encounter Functional Status * RETIRED Are you deaf or do you have serious difficulty hearing Answer Date of Assessment Author Status No 07/09/2020 8:09 AM INSTRUCTIONAL COACH Activ e * RETIRED Are you blind or do you have serious difficulty seeing, even when wearing glasses? Answer Date of Assessment Author Status No 07/09/2020 8:09 AM INSTRUCTIONAL COACH Activ e * Do you have serious difficulty walking or climbing stairs? Answer Date of Assessment Author Status No 07/09/2020 8:09 AM Veronica [place] RN Active * Do you have difficulty dressing or bathing? Answer Date of Assessment Author Status No 07/09/2020 8:09 AM Veronica [place] RN Active * Because of a physical, mental, or emotional condition, do you have difficulty doing errands alone such as visiting a doctor's office or shopping? Answer Date of Assessment Author Status No 07/09/2020 8:09 AM Veronica [place] RN Active documented as of this encounter Mental Status * Because of a physical, mental, or emotional condition, do you have serious difficulty concentrating, remembering, or making decisions? Answer Entry Date Author Status No 07/09/2020 8:09 AM Veronica [place] RN Active documented in this encounter Plan of Treatment Upcoming Encounters Date Type Department Care Team (Late st Contact Info) Description 10/01/2024 8:45 AM INSTRUCTIONAL COACH Appointment [facility] Outpatient Therapy THREE [place] [address] Orlando Devries NP [address] [facility] [place] [address] Terese Braga OTR 1 [place] [address] 11/04/2024 9:00 AM CDT Office Visit [facility] Multispecialty Care - [facility] [address] [facility] [address] [place] [address] Domingo Elizabeth MD 3 [facility] [address] [place] [address] 11/09/2024 1:15 PM CDT Office Visit [facility] THREE [facility], [address] [place] [address] Radha Valente FNP 3 [facility] [address] [place] [address] documented as of this encounter Visit Diagnoses Diagnosis Preop examination- Primary Preoperative examination, unspecified documented in this encounter Additional Health Concerns Infection Onset Date Last Indicated Resolved Time COVID-19 Rule Out 12/16/2020 12/16/2020 12/17/2020 2:38 PM CDT COVID-19 Rule Out 05/28/2021 05/28/2021 05/28/2021 9:04 AM CDT COVID-19 Rule Out 04/28/2022 04/28/2022 04/28/2022 1:35 PM CDT COVID-19 Rule Out 04/28/2022 04/28/2022 04/28/2022 7:46 PM CDT COVID-19 Rule Out 05/17/2022 05/17/2022 05/18/2022 6:00 PM CDT COVID-19 Rule Out 09/25/2023 09/25/2023 09/25/2023 2:02 PM INSTRUCTIONAL COACH COVID-19 Rule Out 05/26/2024 05/26/2024 05/26/2024 1:58 PM CDT documented as of this encounter Care Teams Jewel Corner Brushing Machine Operator Relationship Specialty Start Date End Date Chris Mahmood DO [address] [place] [address] PCP - General FAMILY PRACTICE 07/06/20 10/17/21 Shruthi Modi MD [address] [place] [address] PCP - General FAMILY PRACTICE 10/18/21 Cornell Bingham MD [address] [address] [facility] [employer] CARDIOVASCULAR DISEASE 03/01/19 Fabrizio Thomason MD [address] [place] [address] Referring Physician MEDICAL ONCOLOGY 12/06/20 07/03/22 David Beltran DO [address] [place] [address] [address] [place] [phone] Consulting Physician INTERNAL MEDICINE 07/04/22 Xiomara Hernandez, METHODOLOGIST [address] [place] [address], [address] [place] [address] NURSE PRACTITIONER GERONTOLOGY 07/04/22 Domingo Elizabeth MD [address] [address] Consulting Physician Internal Medicine Pulmonary Disease 07/04/22 Dmitry Laguna MD [address] [address] Consulting Physician ENDOCRINOLOGY 07/04/22 documented as of this encounter
--- OUTSIDE RECORDS SUMMARY | 2024-09-30 16:28 | XMS_ITS | Encounter Summary ---
Author Organization [facility] Address [address] [place] [address] Care Team Providers Care Wool Washer Name Role Phone Cornell Bingham MD Unavailable [phone] Shruthi Modi MD Primary Care Provider [phone] David Beltran DO Unavailable [phone] Xiomara Hernandez NP Unavailable [phone] Domingo Elizabeth MD Unavailable [phone] Dmitry Laguna MD Unavailable Unavailable Encounter Details Date Type Department Care Team (Late st Contact Info) Description 09/07/2022 Future Simplet Message Enc [facility] Medical [facility] Family Medicine [facility] [address] [place] [address] [facility] [place] [address] Kidney doctor Social History Tobacco Use Types Packs/Day Years [...] declined 09/01/2022 How often do you attend zoroastrianism or faith serv ices? Patient declined 09/01/2022 Do you belong to any clubs o r organizations such as zoroastrianism groups, unions, fraternal or athletic groups, or [...] move on to questions 3-9 0 06/26/2022 [facility] [place] of Occupat ional Health - Occupational Stress [...] place to sleep or slept in a long term (including now)? No 09/01/2022 Comments No Sex and Gender Information Value Date Recorded Sex Assigned at Female 09/01/2024 3:25 PM CANDLEMAKING LABORER Legal Sex Female 10:56 PM CDT Gender Identity Female 09/04/2021 12:32 PM CANDLEMAKING LABORER Sexual Orientation Straight 09/04/2021 12 :32 PM CANDLEMAKING LABORER COVID-19 Exposure Response Date Recorded In the last 10 days, have yo u been in contact with someone who was confirmed or suspected to have Coronavirus/COVID-19? No / Unsure 09/06/2022 2:09 PM CANDLEMAKING LABORER documented as of this encounter Functional Status * RETIRED Are you deaf or do you have serious difficulty hearing Answer Date of Assessment Author Status No 08/29/2022 3:53 PM CANDLEMAKING LABORER Activ e * RETIRED Are you blind or do you have serious difficulty seeing, even when wearing glasses? Answer Date of Assessment Author Status No 08/29/2022 3:53 PM CANDLEMAKING LABORER Activ e * Do you have serious difficulty walking or climbing stairs? Answer Date of Assessment Author Status No 08/29/2022 3:53 PM CANDLEMAKING LABORER Kathy Ellis RN Active * Do you have difficulty dressing or bathing? Answer Date of Assessment Author Status No 08/29/2022 3:53 PM CANDLEMAKING LABORER Kathy Ellis RN Active * Because of a physical, mental, or emotional condition, do you have difficulty doing errands alone such as visiting a doctor's office or shopping? Answer Date of Assessment Author Status No 08/29/2022 3:53 PM CANDLEMAKING LABORER Kathy Ellis RN Active documented as of [...] st Contact Info) Description 10/01/2024 8:45 AM CANDLEMAKING LABORER Appointment [facility] Outpatient [place] [address] [place] [address] Orlando Devries NP [address] [place] [address]. [place] [address] Terese Braga OTR 1 [place] [address] 11/04/2024 9:00 AM CDT Office Visit [facility] Medical Group Multispecialty Care - [facility] [address] [facility] [address] [place] [address] Domingo Elizabeth MD 3 [facility] [address] [place] [address] 11/09/2024 1:15 PM CDT Office Visit [facility] THREE [facility], [address] [place] [address] Radha Valente FNP 3 [facility] [address] [place], [place] [address] documented as of this encounter Goals Goal Patient Goal Type Associated Problems Recent Progress Patient-Stated? Author Health - patient able to perform ADLs independently Lifestyle Scott Swift, RN Medications - able to self-administer medications Lifestyle Scott Swift, RN documented as of this encounter Visit Diagnoses Not on filedocumented in this encounter Additional Health Concerns Infection Onset Date Last Indicated Resolved Time COVID-19 Rule Out 09/25/2023 09/25/2023 09/25/2023 2:02 PM CANDLEMAKING LABORER COVID-19 Rule Out 05/26/2024 05/26/2024 05/26/2024 1:58 PM CDT Assessment Noted Time PHQ-9 Depression Total Score: 15 022 2:20 PM CDT documented as of this encounter Care Teams Wool Washer Relationship Specialty Start Date End Date Shruthi Modi MD [address] [place] [address] PCP - General FAMILY PRACTICE 10/18/21 Cornell Bingham MD Three [facility]. [address] [place] [address] [place] Conveyor Line Battery Charger CARDIOVASCULAR DISEASE 03/01/19 David Beltran DO [address] [place] [address] [address] [place] [id number] Consulting Physician INTERNAL MEDICINE 07/04/22 Xiomara Hernandez, DIRECTOR RADIATION ONCOLOGY [address] [place] [address], [address] [place] [address] NURSE PRACTITIONER GERONTOLOGY 07/04/22 Domingo Elizabeth MD 3 [facility] [address] [place] [address] Consulting Physician Internal Medicine Pulmonary Disease 07/04/22 Dmitry Laguna MD [address] [address] Consulting Physician ENDOCRINOLOGY 07/04/22 documented as of this encounter
--- OUTSIDE RECORDS SUMMARY | 2024-09-30 16:29 | XMS_ITS | Referral Summary ---
Author Organization [facility] Address [address] [facility] [place] [address] Care Team Providers Care Revenue Cycle Consultant Name Role Phone Charlene Murillo MD Unavailable [phone] Lenin Frances MD Unavailable [phone] Sylvester Brown MD Unavailable [phone] Cornell Bingham MD Unavailable [phone] Pcp, [address] Primary Care Provide r Unavailable Source Comments [facility],non-owned Affiliates and Associated Physician Practices is amultiple site organization consisting of ambulatory clinics and hospital sitesin [place], [place], [place] and [place]. This disclosure is being madepursuant to the Care Everywhere program and may not contain all information available regarding this patient. 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, intractable Gay 1 spray into each nostril 2 times [...] Comments Blood Pressure 120/74 06/27/2020 11:23 AM RIBBON HAND Pulse 60 06/27/2020 11:23 AM [facility] Temperature 35.7 C (96.3 F) 06/27/2020 11:23 AM [facility] Respiratory Rate 14 06/27/2020 11:23 AM [facility] Oxygen Saturation 100% 06/27/2020 11:23 AM [facility] Inhaled Oxygen Concentration - - Weight 70.8 kg (156 lb) 06/27/2020 11:23 AM [facility] Height 167.6 cm (5' 6 ) 06/27/2020 11:23 AM [facility] Body Mass Index 25.18 06/27/2020 11:23 AM [facility] Functional Status Functional Status Response Date of [...] exam COMPREHENSIVE METABOLIC PANEL 10/08/2018 1:18 PM [facility] from Last 3 Months or Most Recently [...] of containers..01 ThinPrep Vial Resulting Agency Comment [address] [place] [id number] Natali Whiteside STRUCTURAL IRON WORKER-[facility] LAB - PATHOLOGY/CY TOLOGY ORDERABLES [facility] B[facility] [address] [place] [address] * COMPREHENSIVE METABOLIC PANEL (10/08/2018 1:18 PM [facility]) [facility] Glucose 98 74 - 106 mg/dL [...] [facility] INSURANCE BILL Comment:FASTING 10/08/2018 1:18 PM [facility] 10/08/2018 Narrative Resulting Agency Comment [address] [id number] Williams Avalos MD LAB - CHEMISTRY KAREN HOLLINS [facility] INSURANCE BILL [address] [place] [address] from Last 3 Months or Most Recently Relevant to Health Maintenance Advance Directives Documents on File Type Date Recorded Patient Leaf Stripper Expl anation Adv Directive/Living Will/POA 12/10/2016 * Full Code (Latest Code Status on File) Date Activated Date Inactivated Comments 12/14/2016 12:49 AM 12/16/2016 12:21 PM * Full Code Date Activated Date Inactivated Comments 12/10/2016 2:26 PM 12/11/2016 5:18 PM * Full Code Date Activated Date Inactivated Comments 12/10/2016 1:49 PM 12/10/2016 2:26 PM Care Teams Revenue Cycle Consultant Relationship Specialty Start Date End Date Pcp, [facility] 3rd PCP - General 09/14/24 Charlene Murillo MD [address] [address] [address] [place] [address] Consulting Physician Pulmonary Disease 04/09/18 Lenin Frances MD [address] [facility] [address] [place] [phone] Pain Management Anesthesiology 10/08/18 Sylvester Brown MD [address] [place] [address] Psychiatry 12/23/18 Cornell Bingham MD [address] [place] [phone] Cardiovascular Disease 06/15/19
--- OUTSIDE RECORDS SUMMARY | 2024-09-30 16:29 | XMS_ITS | Encounter Summary ---
Author Organization [facility] Address [address] [place] [address] Care Team Providers Care Boot Liner Maker Name Role Phone Cornell Bingham MD Unavailable [phone] Shruthi Modi MD Primary Care Provider [phone] David Beltran DO Unavailable [phone] Xiomara Hernandez NP Unavailable [phone] Domingo Elizabeth MD Unavailable [phone] Dmitry Laguna MD Unavailable Unavailable Encounter Details Date Type Department Care Team (Latest Contact Info) Description 10/13/2023 TouchBase Technologiest Message Enc [facility] Medical Group Family Medicine [facility] [address] [place] [address] Shruthi Modi MD [address] [place] [address] glycosuria may be contributing to recurrent UTIS Social History Tobacco Use Types Packs/Day Years Used Date Smoking Tobacco: Former Cigarettes 0.3 12 0 01/17/2010 - 01/17/2022 Smokeless Tobacco: Never Alcohol Use Standard Drinks/Week Comments Not Currently [...] declined 09/01/2022 How often do you attend mormon or presybeterian serv ices? Patient declined 09/01/2022 Do you belong to any clubs o r organizations such as mormon groups, unions, fraternal or athletic groups, or [...] Date Recorded Patient Health Questionnaire-2 Score 0 10/07/2023 [facility] [place] of Occupat ional Health - Occupational Stress [...] place to sleep or slept in a jail (including now)? No 09/01/2022 Comments No Sex and Gender Information Value Date Recorded Sex Assigned at Female 09/01/2024 3:25 PM PROCESS AUTOMATION ENGINEER Legal Sex Female 10:56 PM CDT Gender Identity Female 09/04/2021 12:32 PM PROCESS AUTOMATION ENGINEER Sexual Orientation Straight 09/04/2021 12 :32 PM PROCESS AUTOMATION ENGINEER documented as of this encounter Functional Status * RETIRED Are you deaf or do you have serious difficulty hearing Answer Date of Assessment Author Status No 08/29/2022 3:53 PM PROCESS AUTOMATION ENGINEER Activ e * RETIRED Are you blind or do you have serious difficulty seeing, even when wearing glasses? Answer Date of Assessment Author Status No 08/29/2022 3:53 PM PROCESS AUTOMATION ENGINEER Activ e * Do you have serious difficulty walking or climbing stairs? Answer Date of Assessment Author Status No 08/29/2022 3:53 PM PROCESS AUTOMATION ENGINEER Kathy Ellis RN Active * Do you have difficulty dressing or bathing? Answer Date of Assessment Author Status No 08/29/2022 3:53 PM Kathy Carballo RN Active * Because of a physical, mental, or emotional condition, do you have difficulty doing errands alone such as visiting a doctor's office or shopping? Answer Date of Assessment Author Status No 08/29/2022 3:53 PM PROCESS AUTOMATION ENGINEER Rhonda, Kathy A, RN Active documented as of this encounter Mental Status * Because of a physical, mental, or emotional condition, do you have serious difficulty concentrating, remembering, or making decisions? Answer Entry Date Author Status No 08/29/2022 3:53 PM PROCESS AUTOMATION ENGINEER Kathy Ellis RN Active documented in this encounter Plan of Treatment Upcoming Encounters Date Type Department Care Team (Late st Contact Info) Description 10/01/2024 8:45 AM PROCESS AUTOMATION ENGINEER Appointment [facility] [place]patient [place] [address] [place] [address] Orlando Devries NP [address] [facility] [place] [address] Terese Braga, OTR 1 [place] [address] 11/04/2024 9:00 AM CDT Office Visit [facility] Medical Group Multispecialty Care - [facility] 3 [facility] [place] [address] Domingo Elizabeth MD 3 [facility] [address] [place] [address] 11/09/2024 1:15 PM CDT Office Visit [facility] THREE [facility], [address] [place] [address] Radha Valente FNP 3 [facility] [address] [place], [place] [address] documented as of this encounter Goals Goal [...] Last Indicated Resolved Time COVID-19 Rule Out 05/26/2024 05/26/2024 05/26/2024 1:58 PM CDT Assessment Noted Time PHQ-9 Depression Total Score: 24 023 9:34 AM CDT documented as of this encounter Care Teams Boot Liner Maker Relationship Specialty Start Date End Date Shruthi Modi MD [facility] [place] [address] PCP - General FAMILY PRACTICE 10/18/21 Cornell Bingham MD Three [facility]. [facility] [address] [place] [address] [place] Insurance Processing Clerk CARDIOVASCULAR DISEASE 03/01/19 David Beltran DO [address] [place] [phone] Consulting Physician INTERNAL MEDICINE 07/04/22 Xiomara Hernandez NP [address] [place] [address], [address] [place] [address] NURSE PRACTITIONER GERONTOLOGY 07/04/22 Domingo Elizabeth MD 3 [facility] [address] [place] [address] Consulting Physician Internal Medicine Pulmonary Disease 07/04/22 Dmitry Laguna MD 3 [facility] [address] [place] [address] Consulting Physician ENDOCRINOLOGY 07/04/22 documented as of this encounter
--- OUTSIDE RECORDS SUMMARY | 2024-09-30 16:29 | XMS_ITS | Encounter Summary ---
Author Organization [facility] Address [facility] [place] [address] Care Team Providers Care Sales Performance Manager Name Role Phone Williams Avalos MD Primary Care Provider Unav Cornell Hernandez MD Unavailable [phone] Chris Mahmood DO Primary Care Provider [phone] Fabrizio Thomason MD Unavailable [phone] Shruthi Modi MD Primary Care Provider [phone] David Beltran DO Unavailable [phone] Xiomara Hernandez NP Unavailable [phone] Domingo Elizabeth MD Unavailable [phone] Dmitry Laguna MD Unavailable Unavailable Encounter Details Date Type Department Care Team (Late st Contact Info) Description 06/26/2020 Hospital Follow-up Call [facility] [place] [address] Kaci Polk, RN Social History Tobacco Use Types Packs/Day Years Used Date Smoking Tobacco: Every Day Cigarettes 0.5 10 Smokeless Tobacco: Never Alcohol Use Standard Drinks/Week Comments Yes 0 (1 standard drink = 0.6 oz pur e alcohol) occasional AUDIT-C Answer Date Recorded Frequency of Alcohol Consumption Monthly or less 07/06/2019 Average Number of Drinks 1 or 2 019 Frequency of Binge Drinking Not on file 06/18 Comments No Sex and Gender Information Value Date Recorded Sex Assigned at Female 09/01/2024 3:25 PM SEGMENTAL WALL INSTALLER Legal Sex Female 10:56 PM CDT Gender Identity Female 09/04/2021 12:32 PM SEGMENTAL WALL INSTALLER Sexual Orientation Straight 09/04/2021 12 :32 PM SEGMENTAL WALL INSTALLER COVID-19 Exposure Response Date Recorded In the last month, have you been in contact with someone who was confirmed or suspected to have Coronavirus / COVID-19? No / Unsure 06/23/2020 10:34 AM SEGMENTAL WALL INSTALLER documented as of this encounter Functional Status * RETIRED Are you deaf or do you have serious difficulty hearing Answer Date of Assessment Author Status No 06/23/2020 5:34 PM SEGMENTAL WALL INSTALLER Activ e * RETIRED Are you blind or do you have serious difficulty seeing, even when wearing glasses? Answer Date of Assessment Author Status No 06/23/2020 5:34 PM SEGMENTAL WALL INSTALLER Activ e * Do you have serious difficulty walking or climbing stairs? Answer Date of Assessment Author Status No 06/23/2020 5:34 PM SEGMENTAL WALL INSTALLER Trena Reynoso RN Active * Do you have difficulty dressing or bathing? Answer Date of Assessment Author Status No 06/23/2020 5:34 PM SEGMENTAL WALL INSTALLER Trena Reynoso RN Active * Because of a physical, mental, or emotional condition, do you have difficulty doing errands alone such as visiting a doctor's office or shopping? Answer Date of Assessment Author Status No 06/23/2020 5:34 PM Trena Martin RN Active documented as of this encounter Mental Status * Because of a physical, mental, or emotional condition, do you have serious difficulty concentrating, remembering, or making decisions? Answer Entry Date Author Status No 06/23/2020 5:34 PM Trena Martin RN Active documented in this encounter Plan of Treatment Upcoming Encounters Date Type Department Care Team (Late st Contact Info) Description 10/01/2024 8:45 AM SEGMENTAL WALL INSTALLER Appointment [facility] [place] [address] Orlando Devries, JOHN [address] [place] [address]. [place] [address] Terese Braga OTR 1 [place] [address] 11/04/2024 9:00 AM CDT Office Visit [facility] Medical Group Multispecialty Care - [facility] 3 [facility] [address] [place] [address] Domingo Elizabeth MD 3 [facility] [address] [place] [address] 11/09/2024 1:15 PM CDT Office Visit [facility] [place] THREE [facility], [address] [place] [address] Radha Valente FNP 3 [facility] [address] [place] [address] documented as of this encounter Visit Diagnoses Not on filedocumented in this encounter Additional Health Concerns Infection Onset Date Last Indicated Resolved Time COVID-19 Rule Out 07/04/2020 07/04/2020 07/04/2020 9:11 PM SEGMENTAL WALL INSTALLER COVID-19 Rule Out 08/28/2020 08/28/2020 08/30/2020 11:20 AM SEGMENTAL WALL INSTALLER COVID-19 Rule Out 09/06/2020 09/06/2020 09/08/2020 2:30 AM SEGMENTAL WALL INSTALLER COVID-19 Rule Out 09/16/2020 09/16/2020 09/17/2020 3:16 PM SEGMENTAL WALL INSTALLER COVID-19 Rule Out 12/09/2020 12/09/2020 12/10/2020 2:55 PM CDT COVID-19 Rule Out 12/16/2020 12/16/2020 12/17/2020 2:38 PM CDT COVID-19 Rule Out 05/28/2021 05/28/2021 05/28/2021 9:04 AM CDT COVID-19 Rule Out 04/28/2022 04/28/2022 04/28/2022 1:35 PM CDT COVID-19 Rule Out 04/28/2022 04/28/2022 04/28/2022 7:46 PM CDT COVID-19 Rule Out 05/17/2022 05/17/2022 05/18/2022 6:00 PM CDT COVID-19 Rule Out 09/25/2023 09/25/2023 09/25/2023 2:02 PM SEGMENTAL WALL INSTALLER COVID-19 Rule Out 05/26/2024 05/26/2024 05/26/2024 1:58 PM CDT documented as of this encounter Care Teams Sales Performance Manager Relationship Specialty Start Date End Date Williams Avalos MD PCP - General FAMILY PRACTICE 01/28/19 07/05/20 Chris Mahmood DO [address] [place] [address] PCP - General FAMILY PRACTICE 07/06/20 10/17/21 Shruthi Modi MD [address] [place] [address] PCP - General FAMILY PRACTICE 10/18/21 Cornell Bingham MD [facility]. [address] [address] [place] Auto Headlight Mechanic CARDIOVASCULAR DISEASE 03/01/19 Fabrizio Thomason MD [address] [place] [address] Referring Physician MEDICAL ONCOLOGY 12/06/20 07/03/22 David Beltran DO [address] [place] [address] [address] [place] [address] Consulting Physician INTERNAL MEDICINE 07/04/22 Xiomara Hernandez NP [address] [place] [address], [address] [address] NURSE PRACTITIONER GERONTOLOGY 07/04/22 Domingo Elizabeth MD [address] [place] [address] Consulting Physician Internal Medicine Pulmonary Disease 07/04/22 Dmitry Laguna MD [address] [place] [address] Consulting Physician ENDOCRINOLOGY 07/04/22 documented as of this encounter
--- OUTSIDE RECORDS SUMMARY | 2024-09-30 16:29 | XMS_ITS | Encounter Summary ---
Author Organization [facility] Address Formerly [facility], later [facility] [place] [address] Care Team Providers Care Software Release Engineer Name Role Phone Cornell Bingham MD Unavailable [phone] Shruthi Modi MD Primary Care Provider [phone] David Beltran DO Unavailable [phone] Xiomara Hernandez NP Unavailable [phone] Domingo Elizabeth MD Unavailable [phone] Dmitry Laguna MD Unavailable Unavailable Encounter Details Date Type Department Care Team (Late st Contact Info) Description 02/05/2024 [employer] Techn[employer] Message Enc [facility] Medical Group Family Medicine [facility] [address] [place] [address] Shruthi Modi MD [address] [place] [address] Swollen leg Social History Tobacco Use Types Packs/Day Years [...] declined 09/01/2022 How often do you attend mandaeism or gnosticist serv ices? Patient declined 09/01/2022 Do you belong to any clubs o r organizations such as mandaeism groups, unions, fraternal or athletic groups, or [...] Date Recorded Patient Health Questionnaire-2 Score 4 02/02/2024 [facility] [place] of Occupat ional Health - Occupational Stress [...] place to sleep or slept in a chcf (including now)? No 09/01/2022 Comments No Sex and Gender Information Value Date Recorded Sex Assigned at Female 09/01/2024 3:25 PM BRINE PURIFIER Legal Sex Female 10:56 PM CDT Gender Identity Female 09/04/2021 12:32 PM BRINE PURIFIER Sexual Orientation Straight 09/04/2021 12 :32 PM BRINE PURIFIER documented as of this encounter Functional Status * RETIRED Are you deaf or do you have serious difficulty hearing Answer Date of Assessment Author Status No 08/29/2022 3:53 PM BRINE PURIFIER Activ e * RETIRED Are you blind or do you have serious difficulty seeing, even when wearing glasses? Answer Date of Assessment Author Status No 08/29/2022 3:53 PM BRINE PURIFIER Activ e * Do you have serious difficulty walking or climbing stairs? Answer Date of Assessment Author Status No 08/29/2022 3:53 PM BRINE PURIFIER Kathy Ellis RN Active * Do you have difficulty dressing or bathing? Answer Date of Assessment Author Status No 08/29/2022 3:53 PM BRINE PURIFIER Kathy Ellis RN Active * Because of a physical, mental, or emotional condition, do you have difficulty doing errands alone such as visiting a doctor's office or shopping? Answer Date of Assessment Author Status No 08/29/2022 3:53 PM BRINE PURIFIER Kathy Ellis RN Active documented as of this encounter Mental Status * Because of a physical, mental, or emotional condition, do you have serious difficulty concentrating, remembering, or making decisions? Answer Entry Date Author Status No 08/29/2022 3:53 PM BRINE PURIFIER Kathy Ellis RN Active documented in this encounter Plan of Treatment Upcoming Encounters Date Type Department Care Team (Late st Contact Info) Description 10/01/2024 8:45 AM BRINE PURIFIER Appointment [facility] [place] [address] Orlando Devries NP [address] [place] [address]. [place] [address] Terese Braga, OTR [address] [place], [place] [address] 11/04/2024 9:00 AM CDT Office Visit [facility] Medical Group Multispecialty Care - [facility] [address] [facility] [facility] [place] [phone] Domingo Elizabeth MD [address] [facility] [address] [place], [place] [address] 11/09/2024 1:15 PM CDT Office Visit [facility] THREE [facility], [address] [place], [place] [address] Radha Valente FNP 3 [facility] [address] [place], [place] [id number] documented as of this encounter Goals Goal [...] Noted Time PHQ-9 Depression Total Score: 15 024 7:28 AM CDT documented as of this encounter Care Teams Software Release Engineer Relationship Specialty Start Date End Date Shruthi Modi MD [address] [place] [address] PCP - General FAMILY PRACTICE 10/18/21 Cornell Bingham MD Three [facility]. [address] [place] [address] [place] Pharmacovigilance Scientist CARDIOVASCULAR DISEASE 03/01/19 David Beltran DO [address] [place] [address] [address] [place] [address] Consulting Physician INTERNAL MEDICINE 07/04/22 Xiomara Hernandez NP [address] [place] [address], [address] [place] [address] NURSE PRACTITIONER GERONTOLOGY 07/04/22 Domingo Elizabeth MD [address] [facility] [address] [place] [address] Consulting Physician Internal Medicine Pulmonary Disease 07/04/22 Dmitry Laguna MD [address] [facility] [address] [place] [address] Consulting Physician ENDOCRINOLOGY 07/04/22 documented as of this encounter
--- OUTSIDE RECORDS SUMMARY | 2024-09-30 16:29 | XMS_ITS | Encounter Summary ---
Author Organization [facility] Address [address] [place] [address] Care Team Providers Care Insulator Technician Name Role Phone Cornell Bingham MD Unavailable [phone] Shruthi Modi MD Primary Care Provider [phone] David Beltran DO Unavailable [phone] Xiomara Hernandez NP Unavailable [phone] Domingo Elizabeth MD Unavailable [phone] Dmitry Laguna MD Unavailable Unavailable Reason for Visit * Reason Onset Date Comments Advice 09/16/2023 Encounter Details Date Type Department Care Team (Late st Contact Info) Description 09/16/2023 Telephone [facility] Medical Group Family Medicine [facility] [address] [place] [address] Shruthi Modi MD [address] [place] [address] Advice Social History Tobacco Use Types Packs/Day Years [...] declined 09/01/2022 How often do you attend voodoo or restorationist serv ices? Patient declined 09/01/2022 Do you belong to any clubs o r organizations such as voodoo groups, unions, fraternal or athletic groups, or [...] Date Recorded Patient Health Questionnaire-2 Score 0 08/04/2023 [facility] [place] of Occupat ional Health - Occupational Stress [...] place to sleep or slept in a halfway (including now)? No 09/01/2022 Comments No Sex and Gender Information Value Date Recorded Sex Assigned at Female 09/01/2024 3:25 PM SUPERVISOR PUTTY AND CALUKING Legal Sex Female 10:56 PM CDT Gender Identity Female 09/04/2021 12:32 PM SUPERVISOR PUTTY AND CALUKING Sexual Orientation Straight 09/04/2021 12 :32 PM SUPERVISOR PUTTY AND CALUKING documented as of this encounter Functional Status * RETIRED Are you deaf or do you have serious difficulty hearing Answer Date of Assessment Author Status No 08/29/2022 3:53 PM SUPERVISOR PUTTY AND CALUKING Activ e * RETIRED Are you blind or do you have serious difficulty seeing, even when wearing glasses? Answer Date of Assessment Author Status No 08/29/2022 3:53 PM SUPERVISOR PUTTY AND CALUKING Activ e * Do you have serious difficulty walking or climbing stairs? Answer Date of Assessment Author Status No 08/29/2022 3:53 PM SUPERVISOR PUTTY AND CALUKING Kathy Ellis RN Active * Do you have difficulty dressing or bathing? Answer Date of Assessment Author Status No 08/29/2022 3:53 PM Kathy Carballo RN Active * Because of a physical, mental, or emotional condition, do you have difficulty doing errands alone such as visiting a doctor's office or shopping? Answer Date of Assessment Author Status No 08/29/2022 3:53 PM SUPERVISOR PUTTY AND CALUKING Kathy Ellis RN Active documented as of this encounter Mental Status * Because of a physical, mental, or emotional condition, do you have serious difficulty concentrating, remembering, or making decisions? Answer Entry Date Author Status No 08/29/2022 3:53 PM SUPERVISOR PUTTY AND CALUKING Kathy Ellis RN Active documented in this encounter Progress Notes * Huong Castro - 09/18/2023 11:31 AM CST Pt called back and was relayed message Dr. Modi had put in. [employer]UKING * Shruthi Modi MD - 09/17/2023 8:16 AM CST Called pt back and relayed that I am okay with her getting a port placed if needed for Oncology labs. Pt relayed that she thought Dr Beltran wanted me to place this order for pt's labs. I think called and spoke with Dr Beltran and he relayed that he does not require a port for pt to getlabs for Oncology. He did relay that pt does usually require a vein US to help put in an IV. I alsodo not require pt to have a port put in for any labs that I may need. Pt is being referred to Endocrinology for additional adrenal workup. If they think a port is neededfor pt to have their labs done, it may be worth considering at that time. Called pt back to relay this info, but she did not answer. LVM. Thanks! ~Dr Rodriguez RVIS[employer] PUTTY [employer] CALUKING [employer]UK[employer] * Jackie Renee - 09/16/2023 1:55 PM CST Patient called stating she needs a port because the [facility] can't get the iv started or to access the blood she will like to know dr modi input an or advice please call patient back at [phone] [employer]UT[employer] CALUKING documented in this encounter Plan of Treatment Upcoming Encounters Date Type Department Care Team (Late st Contact Info) Description 10/01/2024 8:45 AM SUPERVISOR PUTTY AND CALUKING Appointment [facility] [place] [address] Orlando Devries NP [address] [facility] [place] [address] Terese Braga, ARMANDO [address] [place] [address] 11/04/2024 9:00 AM CDT Office Visit [facility] Medical Group Multispecialty Care - [facility] [address] [facility] [place] [address] Domingo Elizabeth MD 3 [facility] [address] [place] [address] 11/09/2024 1:15 PM CDT Office Visit [facility] THREE [facility], [address] [place] [address] Radha Valente, JOSE EDUARDO 3 [facility] [address] [place] [address] documented as of this encounter Goals Goal Patient Goal Type Associated Problems Recent Progress Patient-Stated? Author Health - patient able to perform ADLs independently Lifestyle No Scott Dos Santos, RN Medications - able to self-administer medications Lifestyle No Scott Dos Santos, RN documented as of this encounter Visit Diagnoses Not on filedocumented in this encounter Additional Health Concerns Infection Onset Date Last Indicated Resolved Time COVID-19 Rule Out 09/25/2023 09/25/2023 09/25/2023 2:02 PM SUPERVISOR PUTTY [employer] CALUKING COVID-19 Rule Out 05/26/2024 05/26/2024 05/26/2024 1:58 PM CDT Assessment Noted Time PHQ-9 Depression Total Score: 24 023 9:34 AM CDT documented as of this encounter Care Teams Insulator Technician Relationship Specialty Start Date End Date Shruthi Modi MD [address] [place] [address] PCP - General FAMILY PRACTICE 10/18/21 Cornell Bingham MD Three [facility]. [address] [place] [address] [place] Senior Software Tester CARDIOVASCULAR DISEASE 03/01/19 David Beltran DO [address] [place] [address] [address] [place] [phone] Consulting Physician INTERNAL MEDICINE 07/04/22 Xiomara Hernandez, WINDOWS DESKTOP SUPPORT [address] [place] [address], [address] [place] [address] NURSE PRACTITIONER GERONTOLOGY 07/04/22 Domingo Elizabeth MD 3 [facility] [address] [place] [address] Consulting Physician Internal Medicine Pulmonary Disease 07/04/22 Dmitry Laguna MD 3 [facility] [address] [place] [address] Consulting Physician ENDOCRINOLOGY 07/04/22 documented as of this encounter
--- OUTSIDE RECORDS SUMMARY | 2024-09-30 16:29 | XMS_ITS | Encounter Summary ---
Author Organization [facility] Address [facility] [place] [address] Care Team Providers Care Concrete Pump Operator Name Role Phone Cornell Bingham MD Unavailable [phone] Shruthi Modi MD Primary Care Provider [phone] David Beltran DO Unavailable [phone] Xiomara Hernandez NP Unavailable [phone] Domingo Elizabeth MD Unavailable [phone] Dmitry Laguna MD Unavailable Unavailable Encounter Details Date Type Department Care Team (Late st Contact Info) Description 11/06/2023 [email or web address] Message Enc [facility] [address] [facility], [facility] [address] [place], [place] [id number] Cornell Bingham MD Three [facility]. [facility] [address] [place], [place] [address] Surgical clearance Social History Tobacco Use Types Packs/Day [...] declined 09/01/2022 How often do you attend cheondoism or yarsani serv ices? Patient declined 09/01/2022 Do you belong to any clubs o r organizations such as cheondoism groups, unions, fraternal or athletic groups, or [...] Recorded Patient Health Questionnaire-2 Score 0 10/07/2023 [facility] [place] of Occupat ional Health - Occupational Stress [...] place to sleep or slept in a fpc (including now)? No 09/01/2022 Comments No Sex and Gender Information Value Date Recorded Sex Assigned at Female 09/01/2024 3:25 PM MEDIA SERVICES DIRECTOR Legal Sex Female 10:56 PM CDT Gender Identity Female 09/04/2021 12:32 PM MEDIA SERVICES DIRECTOR Sexual Orientation Straight 09/04/2021 12 :32 PM MEDIA SERVICES DIRECTOR documented as of this encounter Functional Status * RETIRED Are you deaf or do you have serious difficulty hearing Answer Date of Assessment Author Status No 08/29/2022 3:53 PM MEDIA SERVICES DIRECTOR Activ e * RETIRED Are you blind or do you have serious difficulty seeing, even when wearing glasses? Answer Date of Assessment Author Status No 08/29/2022 3:53 PM MEDIA SERVICES DIRECTOR Activ e * Do you have serious difficulty walking or climbing stairs? Answer Date of Assessment Author Status No 08/29/2022 3:53 PM MEDIA SERVICES DIRECTOR Kathy Ellis RN Active * Do you have difficulty dressing or bathing? Answer Date of Assessment Author Status No 08/29/2022 3:53 PM Kathy Carballo RN Active * Because of a physical, mental, or emotional condition, do you have difficulty doing errands alone such as visiting a doctor's office or shopping? Answer Date of Assessment Author Status No 08/29/2022 3:53 PM MEDIA SERVICES DIRECTOR Rhonda, Kathy A, RN Active documented as of this encounter Mental Status * Because of a physical, mental, or emotional condition, do you have serious difficulty concentrating, remembering, or making decisions? Answer Entry Date Author Status No 08/29/2022 3:53 PM MEDIA SERVICES DIRECTOR Kathy Ellis RN Active documented in this encounter Progress Notes * JOSE EDUARDO Maloney - 11/07/2023 9:25 AM CDT Cleared for cataract surgery documented in this encounter Plan of Treatment Upcoming Encounters Date Type Department Care Team (Late st Contact Info) Description 10/01/2024 8:45 AM MEDIA SERVICES DIRECTOR Appointment [facility] Outpatient [place] [address] Orlando Devries NP [address] [place] [address]. [place] [address] Terese Braga OTR 1 [place] [address] 11/04/2024 9:00 AM CDT Office Visit [facility] Medical Group Multispecialty Care - [facility] 3 [facility] [place] [address] Domingo Elizabeth MD 3 [facility] [address] [place] [address] 11/09/2024 1:15 PM CDT Office Visit [facility] [address] [facility], [address] [place] [address] Radha Valente FNP [address] [facility] [address] [place] [address] documented as of this encounter Goals Goal [...] documented as of this encounter Care Teams Concrete Pump Operator Relationship Specialty Start Date End Date Shruthi Modi MD [facility] [place] [address] PCP - General FAMILY PRACTICE 10/18/21 Cornell Bingham MD Three [facility]. [facility] [address] [place] [address] [place] Rewinder Operator Helper CARDIOVASCULAR DISEASE 03/01/19 David Beltran DO [address] [place] [address] [address] [place] [phone] Consulting Physician INTERNAL MEDICINE 07/04/22 Xiomara Hernandez NP [address] [place] [address], [address] [place] [address] NURSE PRACTITIONER GERONTOLOGY 07/04/22 Domingo Elizabeth MD 3 [facility] [address] [place] [address] Consulting Physician Internal Medicine Pulmonary Disease 07/04/22 Dmitry Laguna MD [address] [place] [address] Consulting Physician ENDOCRINOLOGY 07/04/22 documented as of this encounter
--- OUTSIDE RECORDS SUMMARY | 2024-09-30 16:29 | XMS_ITS | Patient Health Summary ---
Author Organization [facility] Address [address] [facility] [place] [address] Care Team Providers Care Healthcare Analyst Name Role Phone Charlene Murillo MD Unavailable [phone] Lenin Frances MD Unavailable [phone] Sylvester Brown MD Unavailable [phone] Cornell Bingham MD Unavailable [phone] Pcp, [address] Primary Care Provide r Unavailable Note from [facility],non-owned Affiliates and Associated Physician Practices is amultiple site organization consisting of ambulatory clinics and hospital sitesin [place], [place]. This disclosure is being madepursuant to the Care Everywhere program and may not contain all information available regarding this patient. Last updated 18.[facility] Allergies * Prochlorperazine(Tolerates phenergan, Feels jittery, like [...] Alwaysverify current medications with the patient. * jhmmkiytkf-uakbhofwytvqa-bthmcvck (FIORICET) 50-300-40 MG capsule Take 1 Cap [...] * vitamin D, ergocalciferol, (DRISDOL) 1.25 MG (34747 UT) capsule Take 50,000 Units by mouth [...] ipratropium (ATROVENT) 0.03 % nasal spray(Started 12/15/2019) [place] 1 spray into each nostril 2 times [...] Comments Blood Pressure 120/74 06/27/2020 11:23 AM DIRECTOR REVENUE Pulse 60 06/27/2020 11:23 AM DIRECTOR REVENUE Temperature 35.7 C (96.3 F) 06/27/2020 11:23 AM DIRECTOR REVENUE Respiratory Rate 14 06/27/2020 11:23 AM DIRECTOR REVENUE Oxygen Saturation 100% 06/27/2020 11:23 AM DIRECTOR REVENUE Inhaled Oxygen Concentration - - Weight 70.8 kg (156 lb) 06/27/2020 11:23 AM DIRECTOR REVENUE Height 167.6 cm (5' 6 ) 06/27/2020 11:23 AM DIRECTOR REVENUE Body Mass Index 25.18 06/27/2020 11:23 AM DIRECTOR REVENUE Procedures * URINALYSIS - POINT OF CARE(Performed [...] pH units Blood UA neg Negative Specific [place] UA POCT 1.020 1.002 - 1.030 Ketone [...] INSURANCE BILL Comment: Z01.419 Z12.31 Performed by [email or web address] INSURANCE BILL Comment:Francis Croft, Cyto technologist (ASCP) Electronically Signed by [email or web address] INSURANCE BILL Comment:Hortencia Lamas MD, Pathologist Comment [...] of containers..01 ThinPrep Vial Resulting Agency Comment [address] [place] [phone] Natali Whiteside DOPE DRY HOUSE OPERATOR-DATA CENTER TECHNICIAN LAB - PATHOLOGY/CY TOLOGY ORDERABLES [facility] INSURANCE BILL [address] [place] [address] * COMPREHENSIVE METABOLIC PANEL (10/08/2018 1:18 PM DIRECTOR REVENUE) Only the most recent of6 resultswithin the [...] [facility] INSURANCE BILL Comment:FASTING 10/08/2018 1:18 PM DIRECTOR REVENUE 10/08/2018 Narrative Resulting Agency Comment [address] [phone] Williams Avalos MD LAB - CHEMISTRY KAREN HOLLINS [facility] INSURANCE BILL [address] [place] [address] * LIPID PROFILE (10/08/2018 1:18 PM DIRECTOR REVENUE) Cholesterol 166 <200 mg/dL [facility] INSURANCE BILL Triglycerides 113 <150 mg/dL [facility] INSURANCE BILL HDL Cholesterol 69 >40 mg/dL [facility] INSURANCE BILL VLDL Calculated 23 <=30 mg/dL [facility] INSURANCE BILL LDL Calculated 74 <130 mg/dL [facility] INSURANCE BILL Comment:FASTING 10/08/2018 1:18 PM DIRECTOR REVENUE 10/08/2018 Narrative Resulting Agency Comment [facility] [address] [facility] [phone] Williams Avalos MD LAB - CHEMISTRY KAREN HOLLINS [facility] INSURANCE BILL [address] [place] [address] * (ABNORMAL) CBC W AUTO DIFFERENTIAL (12/24/2016 7:20 PM CDT) Only the most recent of10 resultswithin the time period is included. Pathologist [facility] WBC 9.1 3.5 - 10.5 10 3/uL [facility] RBC 5.33(H) 3.90 - 5.00 10 6/uL [facility] Hemoglobin 11.1(L) 12.0 - 15.5 g/dL [facility] Hematocrit 33.6(L) 35.0 - 45.0 % [facility] MCV 63.0(L) 81.0 - 97.0 fL [facility] MCH 20.8(L) 28.0 - 34.0 pg [facility] MCHC 33.0 32.0 - 36.0 g/dL [facility] Platelet Count 261 150 - 400 10 3/uL [facility] RDW-SD 41.5 36.0 - 50.0 fL [facility] RDW-CV 18.7(H) 11.2 - 14.8 % [facility] MPV 10.3 9.3 - 12.8 fL [facility] nRBC Absolute 0.00 0 10 3/uL [facility] nRBC Auto 0.0 0 /100 WBC [facility] Neutrophils % 63.6 35.0 - 70.0 % [facility] Lymphocytes % 29.6 19.7 - 55.1 % [facility] Monocytes % 6.1 3.0 - 15.0 % [facility] Eosinophils % 0.6 0.0 - 6.0 % [facility] Basophil % 0.1 0.0 - 1.5 % [facility] Neutrophils Absolute 5.8 1.6 - 7.0 10 3/uL [facility] Lymphocyte Absolute 2.7 0.8 - 2.9 10 3/uL [facility] Monocytes Absolute 0.55 0.14 - 0.66 10 3/uL [facility] Eosinophils Absolute 0.05 0.00 - 0.22 10 3/uL [facility] Basophils Absolute 0.01 0.00 - 0.06 10 3/uL [facility] Immature Granulocytes % 0.4 0.0 - 1.0 % [facility] Blood specimen (specimen) BLOOD SPECIMEN / Unknown 12/24/2016 7:20 PM CDT 12/24/2016 7:24 PM CDT Ivan Villanueva MD LAB - HEMATOLOGY ORD ERABLES [address] [phone] * (ABNORMAL) BASIC METABOLIC PANEL (CALCIUM TOTAL) (12/24/2016 7:20 PM CDT) Only the most recent of3 resultswithin the time period is included. BUN 15 7 - 26 mg/dL [facility] Creatinine 0.5(L) 0.6 - 1.2 mg/dL [facility] Sodium 142 136 - 145 mmol/L [facility] Potassium 4.8(H) 3.5 - 4.5 mmol/L [facility] Comment:Hemolysis detected i n this specimen. Hemolysis is known to cause elevations in this analyte. Caution should be exercised in the interpretation of this result. Recommend repeat testing if clinically indicated. Chloride 106 98 - 107 mmol/L [facility] CO2 26 22 - 29 mmol/L [facility] Glucose 90 70 - 115 mg/dL [facility] Calcium 9.0 8.4 - 10.2 mg/dL [facility] Anion Gap 15 8 - 18 [facility] BUN/Creatinine Ratio 30(H) 7 - 23 [facility] Osmolality Calculated 294 270 - 300 mOsm/kg [facility] eGFR >60 >60 mL/min/1. 73 m2 [facility] Blood specimen (specimen) BLOOD SPECIMEN / Unknown 12/24/2016 7:20 PM CDT 12/24/2016 7:24 PM CDT Ivan Villanueva MD LAB - CHEMISTRY KAREN HOLLINS [facility] Organization Address City/State/ZIP Co de Phone Number [facility] [address] [place] [address] * CT ABDOMEN PELVIS WO CONTRAST (12/24/2016 [...] UA Brown(A) Straw, Yellow, Colorless, Light Yellow [facility] Clarity UA Hazy(A) Clear [facility] Specific [place] UA 1.029 1.001 - 1.030 [facility] pH UA 6.0 5.0 - 8.0 [facility] Protein UA 20 <=20 mg/dL [facility] Comment:Checked Glucose UA Negative Negative mg/dL [facility] Ketone UA Negative Negative mg/dL [facility] Bilirubin UA Negative Negative mg/dL [facility] Blood UA Negative Negative [facility] Nitrite UA Negative Negative [facility] Leukocyte Esterase Negative Negative [facility] Urobilinogen UA 2.0 <2.0 mg/dL [facility] RBC UA 5 0 - 8 /HPF [facility] Bacteria UA Rare Rare, Occasional, None /HPF [facility] Mucus UA Many(A) None /LPF [facility] Hyaline Casts UA 2 0 - 2 /LPF [facility] Calcium Oxalate UA Many(A) Rare, Occasional, Few, None /HPF [facility] Urine specimen (specimen) 12/24/2016 6:10 PM CDT 12/24/2016 6:15 PM CDT Ivan Villanueva MD LAB - [place] [address], [facility] [phone] * CARDIAC EKG ORDER (12/23/2016 10:26 PM [...] - 0.049 ng/mL 12/21/2016 12:[address] [facility] Blood BLOOD SPECIMEN / Unknown Venipuncture / Unknown 12/21/2016 12/21/2016 12:22 AM CDT [address] [facility] - 12/21/2016 12:37 AM CDT Note: [...] - CHEMISTRY ORDE RABIGNACIA Performing Organization Address [facility] Co de Phone Number [facility] [address] [place], [place] [phone] * (ABNORMAL) URINALYSIS MICROSCOPIC ONLY (12/20/2016 8:56 PM CDT) Pathologist [facility] RBC UA 2-5 0-2, 2-5 # /hpf 12/20/2016 9:[address] [facility] WBC UA 5-10(A) 0-2, 2-5 # /hpf 12/20/2016 9:[address] [facility] Bacteria UA 1+(A) None Seen 12/20/2016 9:[address] [facility] Epithelial Cell UA 5-10(A) 0-2, 2-5 # /hpf 12/20/2016 9:[address] [facility] Hyaline Casts 0-2 0 - 2 # /lpf 12/20/2016 9:[address] [facility] Amorphous Phosphate Crystals 4+(A) None Seen 12/20/2016 9:[address] [facility] Urine URINE SPECIMEN OBTAINED BY CLEAN CATCH PROCEDURE / Unknown 12/20/2016 8:56 PM CDT 12/20/2016 8:58 PM CDT [facility] LAB - URINALYSIS ORD ERABLES Performing Organization Address [facility] Co de Phone Number [facility] [address] [place], [place] [phone] * EKG 12-LEAD (12/20/2016 8:52 PM CDT) Only the most recent of7 resultswithin the time period is included. Ventricular Rate [address] [facility] Atrial Rate [address] [facility] P-R Interval 148 ms [facility] QRS Duration ms 70 ms [facility] Q-T Interval ms 332 ms [facility] QTC Calculation (Bezet) 390 ms [facility] Calculated P [place] 58 degrees [facility] Calculated R [place] 48 degrees [facility] Calculated T [place] 31 degrees [facility] Interpretation EKG NORMAL SINUS RHYTHM MODERATE VOLTAGE CRITERIA FOR LVH, MAY BE NORMAL VARIANT NONSPECIFIC T WAVE ABNORMALITY ABNORMAL ECG WHEN COMPARED WITH ECG OF 19-DEC-2016 19:53, NO ESSENTIAL CHANGE Confirmed by Claudia Coleman ([id number]) on 12/21/2016 5:30:[address] [facility] 12/20/2016 8:52 PM CDT 12/21/2016 5:30 PM CDT Boone Nixon DO ECG ORDERABLES Performing Organization Address City/[facility]/ZIP Co de Phone Number [facility] * MAGNESIUM BLOOD (12/20/2016 8:44 PM CDT) [facility] Signature Magnesium 2.3 1.6 - 2.6 mg/dL 12/20/2016 11:[address] [facility] Blood BLOOD SPECIMEN / Unknown Venipuncture / Unknown 12/20/2016 8:44 PM CDT 12/20/2016 11:08 PM CDT Boone Nixon DO LAB - CHEMISTRY ORDE RABLES Performing Organization Address City/[facility]/ZIP Co de Phone Number [facility] [address] [place] [address] * XR CHEST PA AND LATERAL (12/18/2016 [...] Normal, Adequate platelets 12/13/2016 9:[address] [facility] Blood BLOOD SPECIMEN / Unknown 12/13/2016 9:24 PM CDT 12/13/2016 9:27 PM CDT Johanna Myers MD LAB - HEMATOLOGY ORD ERABLES [facility] [address] [place] [address] * CT HEAD NON CONTRAST (12/10/2016 5:03 [...] cells are normal DIAGNOSIS: Negative Jone Welch DOPE DRY HOUSE OPERATOR-DATA CENTER TECHNICIAN CT ORDERABLES * ED CRITICAL CARE (12/10/2016 [...] Yellow, Dark Yellow 12/10/2016 12:[address] [facility] Clarity UA Cloudy 12/10/2016 12:[address] [facility] Specific [place] UA 1.017 1.005 - 1.030 12/10/2016 12:[address] [facility] pH UA 6.0 5.0 - 8.0 pH 12/10/2016 12:[address] [facility] Protein UA Trace(A) Negative 12/10/2016 12:[address] [facility] Blood UA Negative Negative 12/10/2016 12:[address] [facility] Leukocyte UA Negative Negative 12/10/2016 12:[address] [facility] Nitrite UA Negative Negative 12/10/2016 12:[address] [facility] Glucose UA Negative Negative 12/10/2016 12:[address] [facility] Ketone UA Negative Negative 12/10/2016 12:[address] [facility] Bilirubin UA Negative Negative 12/10/2016 12:[address] [facility] Urobilinogen UA 1.0 0.1 - 1.0 EU/dL 12/10/2016 12:[address] [facility] WBC UA Auto 2-5 0-2, 2-5 # /hpf 12/10/2016 12:[address] [facility] RBC UA Auto 2-5 0-2, 2-5 # /hpf 12/10/2016 12:[address] [facility] Epithelial Cell UA Auto 2-5 0-2, 2-5 # /hpf 12/10/2016 12:[address] [facility] Reflex Status Culture not indicated 12/10/2016 12:[address] [facility] Urine URINE SPECIMEN OBTAINED BY CLEAN CATCH PROCEDURE / Unknown Collection / Unknown 12/10/2016 12:38 AM CDT 12/10/2016 12:50 AM CDT Yamila Hernández MD LAB - URINALYSIS ORD ERABLES [facility] [address] [place] [address] * (ABNORMAL) DRUG SCREEN TOX URINE PANEL (12/10/2016 12:38 AM CDT) [facility] Amphetamines Screen Urine Not Detected Not Detected 12/10/2016 1:[address] [facility] Barbiturates Screen Urine Detected(A) Not Detected 12/10/2016 1:[address] [facility] Benzodiazepines Screen Urine Not Detected Not Detected 12/10/2016 1:[address] [facility] Cannabinoids Screen Urine Not Detected Not Detected 12/10/2016 1:[address] [facility] Cocaine Screen Urine Not Detected Not Detected 12/10/2016 1:[address] [facility] Methadone Screen Urine Not Detected Not Detected 12/10/2016 1:[address] [facility] Opiate Screen Urine Detected(A) Not Detected 12/10/2016 1:[address] [facility] Phencyclidine Screen Urine Not Detected Not Detected 12/10/2016 1:[address] [facility] Urine URINE / Unknown Collection / Unknown 12/10/2016 12:38 AM CDT 12/10/2016 1:13 AM CDT N[address] [facility] - 12/10/2016 1:28 AM CDT This [...] MD LAB - URINE CHEMISTR Y ORDERABLES [facility] [address] [place] [address] * XR CHEST 1VW PORTABLE (05/05/2014 11:33 AM CDT) Anatomical Region Laterality Modality Chest Other Impressions 05/05/2014 3:26 PM CDT Impression: No acute pulmonary process. This report was dictated by Alex Lindsey MD (interventional radiology rn) IDr. ROLANDO M.D. have personally reviewed and [...] report was dictated by Alex Lindsey MD (interventional radiology rn) I, Dr. ROLANDO PARDO M.D. have personally reviewed and interpreted thisexamination/study. This report was electronically signed by ROLANDO PARDO M.D. on05/05/2014 3:26 PM . Joe Harris MD DIAGNOSTIC IMAGING O RDERABLES * CK + CKMB PANEL (05/05/2014 11:29 AM CDT) [facility] CK Total 144 30 - 200 Units/L [facility] CK-MB 0.5 0.0 - 6.6 ng/mL [facility] Blood specimen (specimen) BLOOD SPECIMEN / Unknown 05/05/2014 11:29 AM CDT 05/05/2014 11:29 AM CDT Joe Harris MD [facility] Organization Address City/State/[facility] Co de Phone Number [address] [phone] * (ABNORMAL) DRUG ABUSE PANEL 10-20+ETHANOL URINE NO CONFIRM (05/05/2014 8:50 AM CDT) [facility] Amphetamines Screen Urine Negative Negative : < 1000 ng/mL [facility] Barbiturates Screen Urine Positive(A) Negative : < 200 ng/mL [facility] Comment: Positive urine barbiturate screening results should be confirmed by another generally accepted non-immunological method such as gas chromatography or mass spectrometry. Benzodiazepine Screen Urine Positive(A) Negative : < 200 ng/mL [facility] Comment: Positive urine benzodiazepine screening results should be confirmed by another generally accepted non-immunological method such as gas chromatography or mass spectrometry. Opiates Urine Negative Negative : < 300 ng/mL [facility] Cocaine Metabolites Urine Negative Negative : < 300 ng/mL [facility] Phencyclidine Screen Urine Negative Negative : < 25 ng/ml [facility] Cannabinoids Screen Urine Negative Negative : <50 ng/mL [facility] Methadone Screen Urine Negative Negative : < 300 ng/mL [facility] Urine specimen (specimen) 05/05/2014 8:50 AM CDT 05/05/2014 8:54 AM CDT Narrative [facility] - 05/05/2014 9:13 AM CDT The Urine Toxicology Screening Panel does not screen for Propoxyphene, Meprobamate, Carisoprodol, Trazodone, mzsv-icv-memkody medications and/or volatiles (Acetone, Isopropanol, Methanol or Ethylene Glycol). Ethanol, Salicylate, Acetaminophen, Tricyclic Antidepressants and several therapeutic drugs may be individually assayed in serum or plasma specimen. Toxicology testing by the [facility] is an aid to medical diagnosis and treatment of patients. No documented chain of custody was maintained. Results are intended to be used for clinical purposes only. Joe Harris MD LAB - URINE CHEMISTR Y ORDERABLES Performing Organization Address City/[facility]/ZIP Co de Phone Number [address] [phone] * (ABNORMAL) RBC MORPHOLOGY (05/05/2014 8:06 AM CDT) Anisocytosis 1+(A) None [facility] Microcytes 3+(A) None [facility] Target Cells Few(A) None [facility] Ovalocytes Few(A) None [facility] Blood specimen (specimen) BLOOD SPECIMEN / Unknown 05/05/2014 8:06 AM CDT 05/05/2014 8:46 AM CDT Joe Harris MD LAB - HEMATOLOGY ORD ERABLES Performing Organization Address [facility] Co de Phone Number [address] [phone] Care Teams Healthcare Analyst Relationship Specialty Start Date End Date [facility] - General 09/14/24 Charlene Murillo MD [address] [facility] [address] [place] [address] Consulting Physician Pulmonary Disease 04/09/18 Lenin Frances MD [address] [facility] [address] [place] [address] Pain Management Anesthesiology 10/08/18 Sylvester Brown MD [address] [place] [address] Psychiatry 12/23/18 Cornell Bingham MD [address] [place] [address] Cardiovascular Disease 06/15/19
--- OUTSIDE RECORDS SUMMARY | 2024-09-30 16:29 | XMS_ITS | Encounter Summary ---
Author Organization [facility] Address [address] [place] [address] Care Team Providers Care Sheet Folder Name Role Phone Cornell Bingham MD Unavailable [phone] Fabrizio Thomason MD Unavailable [phone] Shruthi Modi MD Primary Care Provider [phone] David Beltran DO Unavailable [phone] Xiomara Hernandez NP Unavailable [phone] Domnigo Elizabeth MD Unavailable [phone] Dmitry Laguna MD Unavailable Unavailable Encounter Details Date Type Department Care Team (Late st Contact Info) Description 03/05/2022 Lukkin Message Enc [facility] Medical Group Multispecialty Care - [facility] [address] [facility] [place] [phone] Ltds[place]deep, [facility] Provider appointment Social History Tobacco Use Types Packs/Day Years Used Date Smoking Tobacco: Former Cigarettes Q uit: 01/17/2010 Smokeless Tobacco: Never Comments:Have quit before fo r 3 years. Ready to quit again. Can't go cold turkey, can slowly reduce. Alcohol Use Standard Drinks/Week Comments Yes 0 [...] Sex Assigned at Female 09/01/2024 3:25 PM WATER METER MECHANIC Legal Sex Female 10:56 PM CDT Gender Identity Female 09/04/2021 12:32 PM WATER METER MECHANIC Sexual Orientation Straight 09/04/2021 12 :32 PM WATER METER MECHANIC COVID-19 Exposure Response Date Recorded In the last 10 days, have yo u been in contact with someone who was confirmed or suspected to have Coronavirus/COVID-19? No / Unsure 03/06/2022 12:53 PM CDT documented as of this encounter Functional [...] st Contact Info) Description 10/01/2024 8:45 AM WATER METER MECHANIC Appointment [facility] [address] [facility] [place] [address] Orlando Devries NP [address] [facility] [place] [address] Terese Braga OTR [address] [place] [address] 11/04/2024 9:00 AM CDT Office Visit [facility] Medical Group Multispecialty Care - [facility] [address] [facility] [place] [phone] Domingo Elizabeth MD [address] [facility] [address] [place] [address] 11/09/2024 1:15 PM CDT Office Visit [facility] [address] [facility] [place] [address] Radha Valente FNP [address] [facility] [address] [place] [address] documented as of this encounter Visit Diagnoses Not on filedocumented in this encounter Additional Health Concerns Infection Onset Date Last Indicated Resolved Time COVID-19 Rule Out 04/28/2022 04/28/2022 04/28/2022 1:35 PM CDT COVID-19 Rule Out 04/28/2022 04/28/2022 04/28/2022 7:46 PM CDT COVID-19 Rule Out 05/17/2022 05/17/2022 05/18/2022 6:00 PM CDT COVID-19 Rule Out 09/25/2023 09/25/2023 09/25/2023 2:02 PM WATER METER MECHANIC COVID-19 Rule Out 05/26/2024 05/26/2024 05/26/2024 1:58 PM CDT Assessment Noted Time PHQ-9 Depression Total Score: 15 022 2:20 PM CDT documented as of this encounter Care Teams Sheet Folder Relationship Specialty Start Date End Date Shruthi Modi MD [address] [place] [address] PCP - General FAMILY PRACTICE 10/18/21 Cornell Bingham MD [address] [facility] [place] [address] [place] Staffing Specialist CARDIOVASCULAR DISEASE 03/01/19 Fabrizio Thomason MD [address] [place] [address] Referring Physician MEDICAL ONCOLOGY 12/06/20 07/03/22 David Beltran DO [address] [place] [address] [address] [place] [phone] Consulting Physician INTERNAL MEDICINE 07/04/22 Xiomara Hernandez NP [address] [place] [address], [address] [place] [address] NURSE PRACTITIONER GERONTOLOGY 07/04/22 Domingo Elizabeth MD [address] [facility] [address] [place] [address] Consulting Physician Internal Medicine Pulmonary Disease 07/04/22 Dmitry Laguna MD [address] [facility] [address] [place] [address] Consulting Physician ENDOCRINOLOGY 07/04/22 documented as of this encounter
--- OUTSIDE RECORDS SUMMARY | 2024-09-30 16:29 | XMS_ITS | Encounter Summary ---
Author Organization [facility] [place] Address [address] [place] [address] Care Team Providers Care Lodge Attendant Name Role Phone Cornell Bingham MD Unavailable [phone] Shruthi Modi MD Primary Care Provider [phone] David Beltran DO Unavailable [phone] Xiomara Hernandez NP Unavailable [phone] Domingo Elizabeth MD Unavailable [phone] Dmitry Laguna MD Unavailable Unavailable Encounter Details Date Type Department Care Team (Late st Contact Info) Description 10/17/2023 MyCPayment plugint Message Enc [facility] Multispecialty Care - [facility] [address] [place] [phone] Domingo Elizabeth MD [address] [place], [place] [id number] CPAP Social History Tobacco Use Types Packs/Day Years [...] declined 09/01/2022 How often do you attend restorationist or druze serv ices? Patient declined 09/01/2022 Do you belong to any clubs o r organizations such as restorationist groups, unions, fraternal or athletic groups, or [...] Recorded Patient Health Questionnaire-2 Score 0 10/07/2023 [facility] [place] [facility] Occupat ional Health - Occupational Stress [...] money to buy more. Never true 09/01/19 Within the past 12 months, t he [...] place to sleep or slept in a skilled nursing (including now)? No 09/01/2022 Comments No Sex and Gender Information Value Date Recorded Sex Assigned at Female 09/01/2024 3:25 PM PHYSICAL FITNESS TEACHER Legal Sex Female 10:56 PM CDT Gender Identity Female 09/04/2021 12:32 PM PHYSICAL FITNESS TEACHER Sexual Orientation Straight 09/04/2021 12 :32 PM PHYSICAL FITNESS TEACHER documented as of this encounter Functional Status * RETIRED Are you deaf or do you have serious difficulty hearing Answer Date of Assessment Author Status No 08/29/2022 3:53 PM PHYSICAL FITNESS TEACHER Activ e * RETIRED Are you blind or do you have serious difficulty seeing, even when wearing glasses? Answer Date of Assessment Author Status No 08/29/2022 3:53 PM PHYSICAL FITNESS TEACHER Activ e * Do you have serious difficulty walking or climbing stairs? Answer Date of Assessment Author Status No 08/29/2022 3:53 PM PHYSICAL FITNESS TEACHER Kathy Ellis RN Active * Do you have difficulty dressing or bathing? Answer Date of Assessment Author Status No 08/29/2022 3:53 PM PHYSICAL FITNESS TEACHER Kathy Ellis RN Active * Because of a physical, mental, or emotional condition, do you have difficulty doing errands alone such as visiting a doctor's office or shopping? Answer Date of Assessment Author Status No 08/29/2022 3:53 PM PHYSICAL FITNESS TEACHER Kathy Ellis RN Active documented as of this encounter Mental Status * Because of a physical, mental, or emotional condition, do you have serious difficulty concentrating, remembering, or making decisions? Answer Entry Date Author Status No 08/29/2022 3:53 PM PHYSICAL FITNESS TEACHER Kathy Ellis RN Active documented in this encounter Plan of Treatment Upcoming Encounters Date Type Department Care Team (Late st Contact Info) Description 10/01/2024 8:45 AM PHYSICAL FITNESS TEACHER Appointment [facility] [place]patient [place] [address] Orlando Devries NP [address] [place] [address]. [place] [address] Terese Braga, MAGOR [address] [place] [address] 11/04/2024 9:00 AM CDT Office Visit [facility] Medical Group Multispecialty Care - [facility] [address] [place] [place] [phone] Domingo Elizabeth MD [address] [place], [place] [address] 11/09/2024 1:15 PM CDT Office Visit [facility] THREE [facility], [address] [place], [place] [address] Radha Valente FNP [address] [facility] [address] [place], [place] [address] documented as of this encounter Goals Goal [...] documented as of this encounter Care Teams Lodge Attendant Relationship Specialty Start Date End Date Shruthi Modi MD [address] [place] [address] PCP - General FAMILY PRACTICE 10/18/21 Cornell Bingham MD Three [facility]. [address] [place] [address] [place] Door To Door Salesperson CARDIOVASCULAR DISEASE 03/01/19 David Beltran DO [address] [place] [address] [address] [place] [phone] Consulting Physician INTERNAL MEDICINE 07/04/22 Xiomara Hernandez NP [address] [place] [address], [address] [place] [address] NURSE PRACTITIONER GERONTOLOGY 07/04/22 Domingo Elizabeth MD [address] [facility] [address] [place] [address] Consulting Physician Internal Medicine Pulmonary Disease 07/04/22 Dmitry Laguna MD [address] [facility] [address] [place] [address] Consulting Physician ENDOCRINOLOGY 07/04/22 documented as of this encounter
--- OUTSIDE RECORDS SUMMARY | 2024-09-30 16:29 | XMS_ITS | Encounter Summary ---
Author Organization [facility] Address [address] [place] [address] Care Team Providers Care Cytopathology Technologist Name Role Phone Cornell Bingham MD Unavailable [phone] Shruthi Modi MD Primary Care Provider [phone] David Beltran DO Unavailable [phone] Xiomara Hernandez NP Unavailable [phone] Domingo Elizabeth MD Unavailable [phone] Dmitry Laguna MD Unavailable Unavailable Encounter Details Date Type Department Care Team (Late st Contact Info) Description 08/10/2022 MyCBrowseLabst Message Enc [facility] Medical Group Multispecialty Care - [facility] [address] [place] [phone] Gideon Rodriguez MD [address] [place] [address] Pain medication Social History Tobacco Use Types Packs/Day Years [...] Sex Assigned at Female 09/01/2024 3:25 PM PETROLEUM SAMPLER Legal Sex Female 10:56 PM CDT Gender Identity Female 09/04/2021 12:32 PM PETROLEUM SAMPLER Sexual Orientation Straight 09/04/2021 12 :32 PM PETROLEUM SAMPLER COVID-19 Exposure Response Date Recorded In the last 10 days, have yo u been in contact with someone who was confirmed or suspected to have Coronavirus/COVID-19? No / Unsure 07/19/2022 7:39 AM PETROLEUM SAMPLER documented as of this encounter Functional Status * RETIRED Are you deaf or do you have serious difficulty hearing Answer Date of Assessment Author Status No 07/08/2022 5:38 PM PETROLEUM SAMPLER Activ e * RETIRED Are you blind or do you have serious difficulty seeing, even when wearing glasses? Answer Date of Assessment Author Status No 07/08/2022 5:38 PM PETROLEUM SAMPLER Activ e * Do you have serious difficulty walking or climbing stairs? Answer Date of Assessment Author Status No 07/08/2022 5:38 PM PETROLEUM SAMPLER Katie Funes RN Active * Do you have difficulty dressing or bathing? Answer Date of Assessment Author Status No 07/08/2022 5:38 PM PETROLEUM SAMPLER Katie Funes RN Active * Because of a physical, mental, or emotional condition, do you have difficulty doing errands alone such as visiting a doctor's office or shopping? Answer Date of Assessment Author Status No 07/08/2022 5:38 PM PETROLEUM SAMPLER Katie Funes RN Active documented as of this encounter Mental Status * Because of a physical, mental, or emotional condition, do you have serious difficulty concentrating, remembering, or making decisions? Answer Entry Date Author Status No 07/08/2022 5:38 PM PETROLEUM SAMPLER Katie Funes RN Active documented in this encounter Plan of Treatment Upcoming Encounters Date Type Department Care Team (Late st Contact Info) Description 10/01/2024 8:45 AM PETROLEUM SAMPLER Appointment [facility] Outpatient Therapy THREE [facility] [place] [address] Orlando Devries NP [address] [place] [address] Terese Braga, OTR [address] [place] [address] 11/04/2024 9:00 AM CDT Office Visit [facility] Medical Group Multispecialty Care - [facility] [address] [facility] [facility] [place] [phone] Domingo Elizabeth MD [address] [facility] [address] [place] [address] 11/09/2024 1:15 PM CDT Office Visit [facility] THREE [facility], [address] [place], [place] [phone] Radha Valente FNP [address] [facility] [address] [place], [place] [address] documented as of this encounter Goals Goal Patient Goal Type Associated Problems Recent Progress Patient-Stated? Author Health - patient able to perform ADLs independently Lifestyle Scott Swift, RN documented as of this encounter Visit Diagnoses Not on filedocumented in this encounter Additional Health Concerns Infection Onset Date Last Indicated Resolved Time COVID-19 Rule Out 09/25/2023 09/25/2023 09/25/2023 2:02 PM PETROLEUM SAMPLER COVID-19 Rule Out 05/26/2024 05/26/2024 05/26/2024 1:58 PM CDT Assessment Noted Time PHQ-9 Depression Total Score: 15 02/04/2 022 2:20 PM CDT documented as of this encounter Care Teams Cytopathology Technologist Relationship Specialty Start Date End Date Shruthi Modi MD [facility] [place] [address] PCP - General FAMILY PRACTICE 10/18/21 Cornell Bingham MD [address] [place] [address] [place] Extension Course Coordinator CARDIOVASCULAR DISEASE 03/01/19 David Beltran DO [address] [place] [address] [address] [place] [phone] Consulting Physician INTERNAL MEDICINE 07/04/22 Xiomara Hernandez NP [address] [place] [address], [address] [place] [address] NURSE PRACTITIONER GERONTOLOGY 07/04/22 Domingo Elizabeth MD [address] [facility] [address] [place] [address] Consulting Physician Internal Medicine Pulmonary Disease 07/04/22 Dmitry Laguna MD [address] [facility] [address] [place] [address] Consulting Physician ENDOCRINOLOGY 07/04/22 documented as of this encounter
--- OUTSIDE RECORDS SUMMARY | 2024-09-30 16:29 | XMS_ITS | Continuity of Care Document ---
Author Name [facility] Organization DOD-PA Care Team Providers Care Medical Collections Representative Name Role Phone [facility] Unavailable Unavailable Problems Combined list of problems [...] Active Condition DoD abnormal electrocardiogram Active Condition [facility] ACP Staging Stage 2 Hypertension: Greater Than Or = 160/100 Active Condition DoD essential hypertriglyceridemia Active Condition DoD esophagitis chronic reflux Active Condition DoD urinary symptoms Active Condition [facility] visit for: laboratory Active Condition [facility] Patient Counseling: Active Condition Do D taking medication for a long time analgesics opiates Active Condition DoD edema Active Condition DoD conditions influencing health status Active Condition [facility] visit for: administrative purpose Inactive Condition Do D delirium [Sx] Active Condition [facility] Laboratory Studies Inactive Condition Do D visit for: follow-up exam Active Condition [facility] anemia Active Condition DoD depression Active Condition DoD arthritis Active Condition [facility] visit for: issue repeat prescription for medication [...] ated to tobacco use. recent CXR from [facility] normal. Will check PFT to eval [...] Diaz tomorrow . Dr Diaz's phone is [phone]. Address [address] [place] [address]. [place]. Please authorize all visits,tests,candice tments,procedures and [...] to take NSAIDs and being evaluated by home inspector this week. I would not use vasoconstrictors [...] Order Date Order Qty Source AJOVY SYRINGE (Scint-Xezum -vfrm), 225 MG/1.5, SYRINGE, SUBCUT, [email or web address], 1.5 ml SYRINGE Active [id number] 2023 1.5 Pharmac y Data Transac tion Service Facilit y ALBUTEROL SULFATE HFA (albuterol sulfate), 90 MCG, HFA AER AD, INHALATION, LUPIN PHARMACEU, 8.5 g CANISTER Active [id number] 4 2023 8.5 Pharmac y Data Transac tion Service Facilit y AMLODIPINE BESYLATE (amlodipine besylate), 10 MG, TABLET, ORAL, LUPIN PHARMACEU, 1000 ea. BOTTLE Active [id number] 4 2023 30 Pharmac y Data Transac tion Service Facilit y AMLODIPINE BESYLATE (amlodipine besylate), 10 MG, TABLET, ORAL, LUPIN PHARMACEU, 1000 ea. BOTTLE Active [id number] 4 2023 30 Pharmac y Data Transac tion Service Facilit y AMOXICILLIN (amoxicilli n), 875 MG, TABLET, ORAL, [facility]/ IKMA, 100 ea. BOTTLE Active [id number] 4 2023 14 Pharmac y Data Transac tion Service Facilit y ARIPIPRAZOL E (aripiprazo le), 20 MG, TABLET, ORAL, TierPMANTA PHARMA L, 30 ea. BOTTLE Cancele d [id number] : 2023 0 Pharmac y Data Transac tion Service Facilit y ARIPIPRAZOL E (aripiprazo le), 20 MG, TABLET, ORAL, [facility], 500 ea. BOTTLE Active [id number] 2023 30 Pharmac y Data Transac tion Service Facilit y ARIPIPRAZOL E (aripiprazo le), 20 MG, TABLET, ORAL, AUROBINDO PHARM, 30 ea. BOTTLE Cancele d [id number] : 2023 0 Pharmac y Data Transac tion Service Facilit y AUVELITY (dextrometh orphan HBr/bupropi on HCl), 45MG-105MG, TAB IR ER, ORAL, AXSOME THERAPEU, 30 ea. BOTTLE Active [id number] 4 2023 60 Pharmac y Data Transac tion Service Facilit y Cefpodoxime Proxetil (Cefpodoxim e Proxetil), 200mg, Tablet, Oral, Sandoz, 20 Ea. Bottle Active [id number] 2023 20 Pharmac y Data Transac tion Service Facilit y CEFUROXIME (CEFUROXIME AXETIL), 250 MG, TABLET, ORAL, AUROBINDO PHARM, 60 ea. BOTTLE Active [id number] 2023 20 Pharmac y Data Transac tion Service Facilit y CIPROFLOXAC IN HCL (CIPROFLOXA SAIDA HCL), 500MG, TABLET, ORAL, PACK PHARMACEUT, 100 ea. BOTTLE Active [id number] 4 2023 10 Pharmac y Data Transac tion Service Facilit y CLONIDINE HCL (clonidine HCl), 0.1 MG, TABLET, ORAL, [facility] 1000 ea. BOTTLE Active [id number] 4 2023 60 Pharmac y Data Transac tion Service Facilit y CLONIDINE HCL (clonidine HCl), 0.1 MG, TABLET, ORAL, [employer] 1000 ea. BOTTLE Active [id number] 2023 60 Pharmac y Data Transac tion Service Facilit y ESTRADIOL (estradiol) , 0.01 %, CREAM/APPL, VAGINAL, PADAGIS, 42.5 g TUBE Cancele d [id number] : 2023 0 Pharmac y Data Transac tion Service Facilit y GAVILYTE-C (PEG 3350/NA SULF,BICARB ,CL/KCL), 240-22.72G, SOLN RECON, ORAL, GAVIS PHARMACEU, 4000 ml BOTTLE Active [id number] 2023 4000 Pharmac y Data Transac tion Service Facilit y HYDROCODONE -ACETAMINOP HEN (HYDROCODON E/ACETAMINO PHEN), 10MG-325MG, TABLET, ORAL, MALLINCKROD T PH, 500 ea. BOTTLE Active [id number] 4 2023 112 Pharmac y Data Transac tion Service Facilit y HYDROCODONE -ACETAMINOP HEN (HYDROCODON E/ACETAMINO PHEN), 7.5-325MG, TABLET, ORAL, MALLINCKROD T PH, 500 ea. BOTTLE Active [id number] 4 2023 100 Pharmac y Data Transac tion Service Facilit y JARDIANCE (EMPAGLIFLO ZIN), 10 MG, TABLET, ORAL, BOEHRINGER ING., 30 ea. BOTTLE Active [id number] 2023 30 Pharmac y Data Transac tion Service Facilit y LATANOPROST (LATANOPROS T), 0.005%, DROPS, OPHTHALMIC, GALLEGOS PHARMACE, 2.5 ml DROP BTL Active [id number] 4 2023 2.5 Pharmac y Data Transac tion Service Facilit y LINZESS (LINACLOTID E), 290 MCG, CAPSULE, ORAL, FOREST PHARMACE, 30 ea. BOTTLE Active [id number] 4 2023 30 Pharmac y Data Transac tion Service Facilit y LOTEMAX SM (lotepredno l etabonate), 0.38 %, DROPS GEL, OPHTHALMIC, BAUSCH & LOMB I, 5 g DROP BTL Cancele d [id number] : 2023 0 Pharmac y Data Transac tion Service Facilit y METFORMIN HCL ER (metformin HCl), 500 MG, TAB ER 24H, ORAL, GRANULES PHARMA, 500 ea. BOTTLE Active [id number] 2023 120 Pharmac y Data Transac tion Service Facilit y ONDANSETRON ODT (ONDANSETRO N), 4MG, TAB RAPDIS, ORAL, [employer] PHARMA, 30 ea. BLIST PACK Active [id number] 4 2023 15 Pharmac y Data Transac tion Service Facilit y ONETOUCH ULTRA TEST STRIP (blood sugar diagnostic) , STRIP, Nadanu, 25 ea. BOX Active [id number] 2023 25 Pharmac y Data Transac tion Service Facilit y PREDNISOLON E ACETATE (PREDNISOLO NE ACETATE), 1%, DROPS SUSP, OPHTHALMIC, GALLEGOS PHARM, 5 ml DROP BTL Active [id number] 2023 5 Pharmac y Data Transac tion Service Facilit y PROPRANOLOL HCL (PROPRANOLO L HCL), 120 MG, CAP SA 24H, ORAL, BRECKENRIDG E, 100 ea. BOTTLE Cancele d [id number] : 2023 0 Pharmac y Data Transac tion Service Facilit y PROPRANOLOL HCL ER (propranolo l HCl), 120 MG, CAP SA 24H, ORAL, [employer], 100 ea. BOTTLE Active [id number] 2023 30 Pharmac y Data Transac tion Service Facilit y ROSUVASTATI N CALCIUM (rosuvastat in calcium), 10 MG, TABLET, ORAL, [employer] PHARMA, 90 ea. BOTTLE Active [id number] 2023 30 Pharmac y Data Transac tion Service Facilit y SUCRALFATE (SUCRALFATE ), 1G, TABLET, ORAL, [facility], 500 ea. BOTTLE Cancele d [id number] : 2023 0 Pharmac y Data Transac tion Service Facilit y URIBEL (methenamin e/methylene blue/sod phos/p.sali cylate/hyos cyamine), 118-10-36, CAPSULE, ORAL, [facility] 100 ea. BOTTLE Active [id number] 2023 12 Pharmac y Data Transac tion Service Facilit y ZOLPIDEM TARTRATE (ZOLPIDEM TARTRATE), 10MG, TABLET, ORAL, A[facility]ARM, 100 ea. BOTTLE Active [id number] 2023 30 Pharmac y Data Transac tion Service Facilit y ZOLPIDEM TARTRATE (ZOLPIDEM TARTRATE), 10MG, TABLET, ORAL, [facility], 100 ea. BOTTLE Cancele d [id number] : 2023 0 Pharmac y Data Transac tion Service Facilit y ZOLPIDEM TARTRATE (ZOLPIDEM TARTRATE), 10MG, TABLET, ORAL, [facility], 100 ea. BOTTLE Active [id number] 2023 30 Pharmac y Data Transac tion Service Facilit y ZOLPIDEM TARTRATE (ZOLPIDEM TARTRATE), 10MG, TABLET, ORAL, [facility] [facility], 100 ea. BOTTLE Active [id number] 2023 30 Pharmac y Data Transac tion Service Facilit y Allergies, Adverse Reactions, Alerts Combined list of allergies from Department of Defense and Veterans Affairs facilities. It does not include entries that were removed or entered in error. Substance Category Reaction Severity Reaction type Status Date Reported Comments Source COMPAZINE Drug allergy (disorder ) Unknown active 3 [place] [address] HALDOL (HALOPERIDOL LACTATE) Drug allergy (disorder ) Rash or Itch active [address] [place] [address] IMITREX Drug allergy (disorder ) Unknown active 3 [place] [address] METOCLOPRAMIDE HCL Drug allergy (disorder ) Unknown active 3 [place] [address] SULFA-DRUGS Drug allergy (disorder ) Unknown active 3 [place] [address] TORADOL (KETOROLAC TROMETHAMINE) Drug allergy (disorder ) Stomach Ulcers active [address] [place] [address] Immunizations Combined list of available immunizations from the Department of Defense and Veterans Affairs facilities. Immunization Series Date Given Administered By Site Reaction Lot Number CVX Code Drug Disability Benefits Specialist Status Comments Source influenza virus vaccine, split virus (incl. purified surface antigen)-reti red CODE 2 2009 Unknown, Provider 15 Transcribed (TRS) complet ed influenza virus vaccine, split virus (incl. purified surface antigen)- retired CODE DoD influenza virus vaccine, split virus (incl. purified surface antigen)-reti red CODE 1 2005 Unknown, Provider [id number] 15 Sanofi Pasteur ([facility]) complet ed influenza virus vaccine, split virus (incl. purified surface antigen)- retired CODE DoD tetanus and diphtheria toxoids, adsorbed, preservative free, for adult use (2 Lf of tetanus toxoid and 2 Lf of diphtheria toxoid) 1 2004 Unknown, Provider [id number] 09 Sanofi Pasteur ([facility]) complet ed tetanus and diphtheri a toxoids, [...] DC Date Status Disposition Source [employer]([facility]) OUTPATIENT [id number] Hands swollen and area of kindney s hurting JESSICA BARFIELD 07/21 Released w/o Limitations [employer]([facility]) [employer] OUTPATIENT [id number] h/a,CHELSEA Vega 12/21 Immediate Referral [employer]([facility]) [employer] OUTPATIENT [id number] migrain e, bp elevate d EVER_OSMAN WOODSON 01/21 Released w/o Limitations [employer]) [employer] OUTPATIENT [id number] EDGAR CASTRO 01/23 Immediate Referral [employer]([facility]) [employer]([facility]) OUTPATIENT [id number] blood pressur e YOUSIF-CATARINO CAPELLAN S 01/30 Released w/o Limitations [employer](F amily Practic e Contrac t) [employer]([facility]) OUTPATIENT [id number] f/u htn, review labs, review meds SHANTELL BEGUM A 02/06 Immediate Referral [employer](F amily Practic e Contrac t) [employer]([facility]) OUTPATIENT [id number] f/u on BP per dr kilo BEGUM, [facility] A 02/07 Released w/o Limitations [employer](F amily Practic e Contrac t) [employer]([facility]) OUTPATIENT [id number] HTN f/u per Dr Kilo BEGUM, [facility] A 02/13 Released w/o Limitations [employer](F amily Practic e Contrac t) [employer]([facility]) OUTPATIENT [id number] migrain e, elevate d BP RAE TRUJILLO 04/02 Immediate Referral [employer](A cute Care [facility]) [employer]([facility]) OUTPATIENT [id number] follow- up,BP,r efill,t est leonor DODD-CATARINO CAPELLAN S 05/15 Released w/o Limitations [employer](F amily Practic e Contrac t) [employer]([facility]) OUTPATIENT [id number] headach e GV_OSMAN WOODSON 05/25 Released w/o Limitations [employer]([facility]) [employer]([facility]) OUTPATIENT [id number] back pain , headach e YOUSIF-CATARINO CAPELLAN S 06/01 Released w/o Limitations [employer](F amily Practic e Contrac t) [employer] [id number] back pain- migrain e Eleazar KRISHNAN 06/04 Released w/o Limitations [employer]([facility] Practic e) [employer]([facility]) OUTPATIENT [id number] headeac james LUZLAP CATARINO GONZALEZ S 06/12 Released w/o Limitations [employer](F amily Practic e Contrac t) [employer] OUTPATIENT [id number] MADAI Carter 06/18 Released w/o Limitations [employer]([facility]) [employer]([facility] [facility]) OUTPATIENT [id number] Fill Premari n and B/P check SHASHANK HOLBROOK A 06/18 Released w/o Limitations [employer](G ynecolo gy) [employer] OUTPATIENT [id number] head/ne ck pain ASHLEY, CHELSEA M 06/21 Released w/o Limitations [employer]) [employer] OUTPATIENT [id number] abd pain ASHLEY, CHELSEA M 06/29 Released w/o Limitations [employer]) [employer] [id number] leg pain DANYEL HASSAN 07/02 Released w/o Limitations [employer]([facility] e) [employer]([facility]) OUTPATIENT [id number] Possibl e right breast nodule KAMALJIT GARCIA 07/17 Released w/o Limitations [employer](S urgical Clinic) [employer] OUTPATIENT [id number] elevate d bp RAE TRUJILLO 09/05 Left Against Medical Advice [employer]([facility]) [employer]([facility] amily Practice) OUTPATIENT [id number] f/u htn,glynn oing abd discomf ort Eleazar KRISHNAN 09/06 Released w/o Limitations [employer]([facility] e) [employer]([facility]) OUTPATIENT [id number] stomach pain/si de pain EDGAR CASTRO 09/09 Released w/o Limitations [employer]([facility]) [employer]([facility] amil Practice) OUTPATIENT [id number] f/u abd discomf ort post u/s ARIELLA, Eleazar WOODY 09/12 Released w/o Limitations [employer]([facility]) [employer]([facility] amil Practice) OUTPATIENT [id number] fell on sunshine, EMERALD Salcedo 09/25 Released w/o Limitations [employer]([facility]) [employer]([facility]) OUTPATIENT [id number] abdomin al pain in the right upper belly (RUQ) KAMALJIT GARCIA 09/25 Released w/o Limitations [employer](S urgical Clinic) [employer]([facility] megan Practice Contract) OUTPATIENT [id number] SHANTELL BEGUM 09/25 Released w/o Limitations [employer](F amily Practic e Contrac t) [employer]([facility] amil Practice) OUTPATIENT [id number] f/u from [facility] l Eleazar KRISHNAN 10/10 Released w/o Limitations [employer]([facility]Family Practic e) [employer]([facility]) OUTPATIENT [id number] KAMALJIT GARCIA 10/11 Released w/o Limitations [employer](S urgical Clinic) [employer]([facility]) OUTPATIENT [id number] follow- up surgery KAMALJIT GARCIA 10/25 Released w/o Limitations [employer](S urgical Clinic) [employer] OUTPATIENT [id number] migrain e GV_OSMAN WOODSON 12/07 Released w/o Limitations [employer]([facility]) [employer]([facility] amil Practice) OUTPATIENT [id number] sinus infecti on ARIELLA, Eleazar MCKAY 01/02 Released w/o Limitations [employer]([facility]) [employer](Aud iology Clinic) OUTPATIENT [id number] removal FB ANGEL DELACRUZ 01/02 Released w/o Limitations [employer](A udiolog y Clinic) [employer]([facility]) OUTPATIENT [id number] Migrain e RAE TRUJILLO 01/09 Immediate Referral [employer]([facility]) [employer]([facility]) OUTPATIENT [id number] Burning in sinuses RAE TRUJILLO Mansi 01/13 Released w/o Limitations [employer] [employer]([facility]) OUTPATIENT [id number] f/u ER/HTN Crisis SMITHSHAGUFTA ORTA C 02/06 Sick at Home/Quarter s [employer]([facility] Practic e) [employer]([facility]) OUTPATIENT [id number] h/a, high blood pressur e, heart palpata tions SAMIRA CLARK 02/21 Released w/o Limitations [employer]([facility]) [employer]([facility]) OUTPATIENT [id number] HTN SMITHSHAGUFTA ORTA C 02/26 Released w/o Limitations [employer]([facility] Pract[facility] e) [employer]([facility]) OUTPATIENT [id number] f/u on BP SHAGUFTA SMITH 03/25 Released with Work/Duty Limitations [employer]([facility] Pract[facility] e) [employer]([facility]) OUTPATIENT [id number] f/u UTI SHAGUFTA SMITH C 04/03 Released with Work/Duty Limitations [employer]([facility]) [employer]([facility]) OUTPATIENT [id number] abd pain NUNU FULLER 04/09 Released w/o Limitations [employer]([facility]) [employer]([facility]) OUTPATIENT [id number] pt still have prb.or related kidney stone EMERALD ABRAMS 05/10 Released w/o Limitations [employer]([facility] Practic e) [employer]([facility]) OUTPATIENT [id number] f/u ct/back pain NUNU FULLER S 05/24 Released w/o Limitations [employer]([facility]) [employer]([facility]) TELE CONSULT [id number] Headach e, double vision, elevate d B/P GIROTTO, DANYEL R 06/04 [employer]([facility] Pract[facility] e) [employer](ZZ amily Practice) OUTPATIENT [id number] Rx renewal NUNU FULLER S 06/10 Released w/o Limitations [employer]([facility]) [employer]([facility]) OUTPATIENT [id number] back pain NUNU FULLER S 06/27 Released w/o Limitations [employer](F ast Track Clinic) [employer](ZZF amily Practice) OUTPATIENT [id number] med refill NUNU FULLER S 07/10 Released w/o Limitations [employer]([facility]Family Practic e) [employer]([facility] megan Practice Contract) OUTPATIENT [id number] Rx renewal SAMIRA CLARK D 08/06 Released w/o Limitations [employer](F amily Practic e Contrac t) [employer] [id number] follow up ED AGGARWAL 04/17 Released w/o Limitations [employer](F amily Practic e Blue) [employer]([facility]gan [facility] Blue) TELE CONSULT [id number] MEDS MARISSA GAMBOA 09/22 [employer](F amily Practic e Blue) [employer]([facility] Blue) OUTPATIENT [id number] f/u HTN RADDEN, SHAQUILLE D 10/10 Released w/o Limitations [employer](F amily Practic e Blue) [employer]([facility] Blue) TELE CONSULT [id number] pt scratch ed her eye and is swollen , and painful ., MARISSA GAMBOA 10/13 [employer](F amily Practic e Blue) [employer](Opt ometry Clinic) OUTPATIENT [id number] poked left eye KAMALJIT SEXTON 10/14 Released w/o Limitations [employer](O ptometr y Clinic) [employer](Opt [facility]metry Clinic) OUTPATIENT [id number] follow up for corneal abrasio n KAMALJIT SEXTON 10/16 Released w/o Limitations [employer](O ptometr y Clinic) [facility]) TELE CONSULT [id number] referra l was denied for pain managem ent; need referra l retroac tive for an appt MARISSA GAMBOA R 10/20 [facility](F amily Practic [facility] Blue) [facility](Fam megan Practice [facility]) TELE CONSULT [id number] REFERRA L FOR MIGRAIN ES NEMESIO SHAQUILLE Deann 10/28 [facility](F amily Practic e Blue) [facility](Fam megan [facility]) TELE CONSULT [id number] MED REFILL SHAQUILLE HERR Deann 10/30 [facility](F amily Practic e Blue) [facility](Fam megan Practice Blue) TELE CONSULT [id number] pt use to be on a blood pressur e med before it was switche d; that one worked NEMESIO SHAQUILLE Deann 12/16 [facility](F amily Practic e Blue) [facility](Fam megan [facility]) OUTPATIENT [id number] ER f/u appt SHAQUILLE HERR Deann 12/18 Released w/o Limitations [facility](F amily Practic e Blue) [facility](Fam megan Practice Blue) TELE CONSULT [id number] migrane s- pt needs injecti on and er would not give her injecti on BEE MARISSA R 01/31 [facility](F amily Practic e Blue) [facility](Soc ial Work Clinic) OUTPATIENT [id number] [facility] EMERALD ART R 02/06 Released w/o Limitations [facility](S ocial Work [facility]) [facility]am megan [facility]) TELE CONSULT [id number] pt. needs meds. that were perscri bed by dif. doc., but the doc. no longer .... ANTELMOUMER SHAQUILLE Deann 02/13 [facility](F amily Practic [facility] Blue) [facility](Fam megan [facility]) TELE CONSULT [id number] referra l for chavo walkin for vomitin g and diarrhe a; also pt needs med renewal s ED AGGARWAL 05/14 [facility](F amily Practic e Blue) [facility](Fam megan Practice Blue) TELE CONSULT [id number] pt has appt 06/10, needs one sooner for physch meds f/u, needs appt for 06/01 RADDEN, SHAQUILLE D 05/20 [facility](F amily Practic e Blue) [facility](Fam megan Practice Blue) TELE CONSULT [id number] pt calling to speak with NEMESIO, pt's bloodpr essure is high,he adache RADDEN, SHAQUILLE D 06/10 [facility](F amily Practic e Blue) [facility](Fam megan Practice Blue) TELE CONSULT [id number] in need of f/u appt,la bs and HTN meds RADDEN, SHAQUILLE D 06/15 [facility](F amily Practic e Blue) [facility](Fam megan Practice Blue) TELE CONSULT [id number] pt calling kulwant TOUREATON E was not there when she went to olive picker refills RADDEN, SHAQUILLE D 06/23 [facility](F amily Practic e Blue) [facility](Fam megan Practice Blue) OUTPATIENT [id number] f/u polypha rmacy;p ain mgmt RADDEN, SHAQUILLE D 07/03 Released w/o Limitations [facility](F amily Practic e Blue) [facility](Fam megan Practice Blue) TELE CONSULT [id number] DR. ARTEAGA trying to contact pt's pcm, kulwant weiss pt's medicat ion RADDEN, SHAQUILLE D 07/06 [facility](F amily Practic e Blue) [facility](Fam megan [facility] Blue) TELE CONSULT [id number] pt needs f/u to er visit 07/28 for high blood pressur e and migrain es LUCA, VESTA 07/29 [facility](F amily Practic [facility] Blue) [facility](Fam megan Practice Blue) TELE CONSULT [id number] med refill for aldacto ne and metopro lol- on back ordered RADDEN, SHAQUILLE D 09/01 [facility](F amily Practic e Blue) [facility](Fam megan Practice Blue) TELE CONSULT [id number] pt has had excessi ve hot and colds sweats, SOB, and weaknes s past 2wks SHAQUILLE HERR D 11/18 [facility](F amily Practic e Blue) [facility] Blue) OUTPATIENT [id number] f/u SHAQUILLE HERR D 11/30 Released w/o Limitations [facility](F amily Practic e Blue) [facility]) OUTPATIENT [id number] HELEN KING D 12/08 Released w/o Limitations [facility](G yn Clinic) [facility]gan [facility] Blue) TELE CONSULT [id number] Needs referra l to walk in clinic for all over swellin g and joint pain MARISSA GAMBOA 12/09 [facility](F amily Practic e Blue) [facility] [facility] TELE CONSULT [id number] Med refill GONSALO LARSON 02/24 [facility] TELE CONSULT [id number] needs meds refills BLANCA CHARLES 10/13 [facility] TELE CONSULT [id number] Med refills BLANCA CHARLES 12/05 [facility] OUTPATIENT [id number] fu meds BLANCA CHARLES 12/15 Released w/o Limitations [facility] TELE CONSULT [id number] anemia off base labs-- please repeat BLANCA CHARLES 02/22 [facility] TELE CONSULT [id number] Elevate d WBCs BLANCA CHARLES 03/17 [facility] TELE CONSULT [id number] pain managem ent referra MARISSA Cadet R 03/23 [facility] TELE CONSULT [id number] Pt needs f/u appt due to abn labs from [facility] ED visit BLANCA CHARLES 05/05 [facility] TELE CONSULT [id number] ED visit for migrain yamilet US, JOHN PAUL 06/12 [facility] TELE CONSULT [id number] referra alondra herron doc in box for severe migrain MARISSA Gonzalez R 06/12 [facility] OUTPATIENT [id number] Slurred speech, weaknes s after visit to ED [place], [place] 06/12 Released w/o Limitations [facility] OUTPATIENT [id number] Pt missed appt and recentl y dc'ed for htn RADUMER, SHAQUILLE D 06/22 Released w/o Limitations [facility] TELE CONSULT [id number] Neurolo gy carlos alberto US, JOHN PAUL 06/22 [facility] TELE CONSULT [id number] Desires refill of Procard ia XL 60mg and Tenormi n 50mg RADDEN, SHAQUILLE D 07/17 [facility] TELE CONSULT [id number] SINCERE Tellez 07/20 [facility] OUTPATIENT [id number] f/u HTN; Migrain es RADDEN, SHAQUILLE D 07/26 Released w/o Limitations [facility] TELE CONSULT [id number] Admit to case managem ent/car e coordin ation care plan SINCERE GUILLEN 07/26 [facility] TELE CONSULT [id number] Pt needs pain medicat ion RADDEN, SHAQUILLE D 08/09 [facility]) [facility] TELE CONSULT [id number] Desires refill of Atenolo l,Adala t and Fentany l patch CERVA, PAULINO M 08/15 [facility] TELE CONSULT [id number] 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 and 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 JOHN PAUL Greene 08/17 [facility] TELE CONSULT [id number] Pt desires refill of Oxycodo ne and Fentany l patch RADDEN, SHAQUILLE D 08/21 [facility] OUTPATIENT [id number] monthly acuity note SINCERE GUILLEN 08/22 Released w/o Limitations [facility] TELE CONSULT [id number] update SINCERE GUILLEN 08/22 [facility] TELE CONSULT [id number] update SINCERE GUILLEN 09/11 [facility] TELE CONSULT [id number] med refill - pt out today DENG SOLANO 09/12 [facility] OUTPATIENT [id number] monthly acuity note SINCERE GUILLEN 09/19 Released w/o Limitations [facility] TELE CONSULT [id number] med refill and referra l or appt DENG SOLANO 10/05 [facility] TELE CONSULT [id number] Meds/Ca ll-back DENG SOLANO 10/06 [facility] TELE CONSULT [id number] ALL MEDS NOT PICKED UP DENG SOLANO 10/06 [facility] OUTPATIENT [id number] JOANNA SMYTH 10/20 Released w/o Limitations [facility] TELE CONSULT [id number] Med refill SHAQULILE HERR 10/25 [facility] TELE CONSULT [id number] Pt's fentena l patch Rx was cancele d by Dr Herr Pt wants to know why. SHAQUILLE HERR 10/27 [facility] TELE CONSULT [id number] [facility]. Pt seen [facility] ER. DENG SOLANO 10/30 [facility] TELE CONSULT [id number] after hours call SHAQUILLE HERR 11/02 [facility] TELE CONSULT [id number] Follow- up ARTURO BUTT 11/17 [facility] OUTPATIENT [id number] ARTURO BUTT 11/20 Released w/o Limitations [facility] TELE CONSULT [id number] Follow- up ARTURO BUTT 12/07 [facility] OUTPATIENT [id number] ARTURO BUTT 12/20 Released w/o Limitations [facility]) TELE CONSULT [id number] Medicat ion Refill- -pt has no BP medicat ion DENG SOLANO 01/11 [facility]) TELE CONSULT [id number] request for mail order pharmac y script to be complet ed by CELESTINA Thomas 01/17 [facility]) TELE CONSULT [id number] med refill CELESTINA CORNEJO 04/27 Referred for Appointment [facility]) TELE CONSULT [id number] labs SHAQUILLE HERR 05/07 [facility]) TELE CONSULT [id number] pt would like med refill for nexium- apt is jul 03 SHAQUILLE HERR 05/30 [facility]) TELE CONSULT [id number] med refill UMAIR BEASLEY 07/10 [facility] OUTPATIENT [id number] f/u HTN and reflux, needs refill of meds UMAIR BEASLEY 07/26 Released w/o Limitations [facility] TELE CONSULT [id number] [facility] J[facility] Rivas 06/07 [facility]) TELE CONSULT [id number] Apt Line- pt says she needs a new referra l to pain managme nt JANE DANIEL 06/11 [facility]) [facility] [employer]) TELE CONSULT [id number] fisher scallop JANE DANIEL 06/11 [facility] [employer] ) [facility] [employer]) TELE CONSULT [id number] Program Trainer call. JANE DANIEL 06/14 [facility] [employer] ) [facility]) TELE CONSULT [id number] no-show appt yesterd ay, needs resched IDALIA Modi 06/19 Referred for Appointment [facility]) [facility] [employer]) TELE CONSULT [id number] BP concern s ASHLEY HOLBROOK 06/24 Referred for Appointment [facility]) [facility]) OUTPATIENT [id number] blood pressur e JANE DANIEL 06/26 Released w/o Limitations [facility] [employer]([facility]) [facility]) OUTPATIENT [id number] WALKIN- -BP Check 1st day JANE DANIEL 07/01 Released w/o Limitations [facility] [employer]([facility]) [facility]) TELE CONSULT [id number] f/u labs JANE DANIEL 07/03 Referred for Appointment [facility]) [facility]) TELE CONSULT [id number] appt line - pt calling for bloodwo rk results from today 1 JANE DANIEL 07/05 [facility]) [facility]) OUTPATIENT [id number] f/u HTN JANE DANIEL 07/17 Released w/o Limitations [facility]) [facility]) OUTPATIENT [id number] Annual PAP LENCHOAMAN AYALA Eyal 08/02 Released w/o Limitations [facility]) [facility]) TELE CONSULT [id number] pap results receive deann MCGRATH AZAELLIZETT HOUSER 08/14 Referred for Appointment [facility]) [facility]) TELE CONSULT [id number] Apt Line - med refill nexium -40mg - lotrel- 10/40mg and coreg 40mg ASHLEY HOLBROOK 09/25 Referred for Appointment [facility]) [facility]) TELE CONSULT [id number] Notes Entered by: DARYN FLORES 20 Nov 2011 1617 ------- ------- ------- ------- -- Refer l to Dr Mccormick [facility] for migrain es ASHLEY HOLBROOK 11/19 Referred for Appointment [facility]) [facility] [employer]) TELE CONSULT [id number] Notes Entered by: USSAN DESAI 17 Jun 2012 0954 ------- ------- ------- ------- -- VVC-ref erral request MARISSA GAMBOA 06/17 Referred for Appointment [facility]) [facility] [employer]) TELE CONSULT [id number] Notes Entered by: SUSAN DESAI 30 Jun 2012 0812 ------- ------- ------- ------- -- VVC-ref erral request ANGEL AUGUSTIN 06/30 [facility]) [facility] [employer]) TELE CONSULT [id number] Notes Entered by: SUSAN DESAI 20 Jul 2012 0958 ------- ------- ------- ------- -- MARISSA Fernandez 07/20 Other Not Elsewhere Classified [facility]) [facility]) TELE CONSULT [id number] Notes Entered by: SUSAN DESAI 29 Jul 2012 1159 ------- ------- ------- ------- -- VVC-med ication MARGARITO LOPEZ 07/29 Referred for Appointment [facility]) [facility]) TELE CONSULT [id number] Notes Entered by: PRIETO ESPITIA 14 Aug 2012 1612 ------- ------- ------- ------- -- Network [facility] opy Operati ve Report JANE DANIEL 08/14 [facility]) [facility] [employer]) TELE CONSULT [id number] Notes Entered by: Natalie JOVEL 07 Oct 2012 1454 ------- ------- ------- ------- -- Med refill NITISH VALADEZ 10/07 Referred for Appointment [facility]) [facility] [employer]) TELE CONSULT [id number] Notes Entered by: NITISH DE LA TORRE 15 Dec 2012 0758 ------- ------- ------- ------- -- VVC-Med ication JENNIE Simpson 12/15 Referred for Appointment [facility] OUTPATIENT [id number] initial appt w/pcm for blood pressur e medicat ion JANE DANIEL 01/26 Released w/o Limitations [facility]) [facility]) TELE CONSULT [id number] Notes Entered by: SAGE HILARIO SA 29 Jan 2013 0902 ------- ------- ------- ------- -- Appt Made pt informe LUIS Darby 01/29 Referred for Appointment [facility]) [facility]) OUTPATIENT [id number] Back Stiffne ss JANE DANIEL 02/15 Released w/o Limitations [facility]) [facility]) TELE CONSULT [id number] Notes Entered by: HARRIET DANIEL 17 Feb 2013 1830 ------- ------- ------- ------- -- VVC message JANE DANIEL 02/17 [facility]) [facility] [employer]) TELE CONSULT [id number] Notes Entered by: YAKOV HAMILTON 23 Feb 2013 1452 ------- ------- ------- ------- -- oumar [facility] JUDD HAMILTON 02/23 [facility] [employer] [facility]) TELE CONSULT [id number] Notes Entered by: HARRIET DANIEL 24 Feb 20132000 ------- ------- ------- ------- -- VVC message ALIYA OLIVEIRA 02/25 Referred for Appointment [facility]) [facility]) TELE CONSULT [id number] Notes Entered by: Eleazar WALL 05 Apr 2013 1706 ------- ------- ------- ------- -- VVC -referr JENNIE Flower 04/05 [facility]) TELE CONSULT [id number] Notes Entered by: HARRIET DANIEL 16 Apr 2013 1637 ------- ------- ------- ------- -- VVC JANE DANIEL 04/16 [facility]) [facility]) OUTPATIENT [id number] f/u blood pressur e mediati on JANET MUKHERJEE 07/05 Released w/o Limitations [facility]) [facility] [employer]) TELE CONSULT [id number] Notes Entered by: LIZ BOTELLO 01 Nov 2013 1507 ------- ------- ------- ------- -- Backdat ed referPREETI Nowak 11/01 [facility] [employer]) TELE CONSULT [id number] Notes Entered by: Pamela GARZA 05 Nov 2013 1428 ------- ------- ------- ------- -- Network Results : Radiolo gy Report- CT Abdomen - 4 GREER JOVEL 11/05 [facility] [employer]) TELE CONSULT [id number] Notes Entered by: NITISH DE LA TORRE 17 Nov 2013 1007 ------- ------- ------- ------- -- VVC Terri -DAMIAN Wilkins 11/17 Referred for Appointment [facility]) Procedures Combined list of: 1) Procedures from Department of Veterans Affairs facilities going back up to thelast 18 months, not all VA non-surgical procedures are included; 2) All procedures from the Department of Defense facilities. Procedure Procedure Type Code Date Perfomer Comments Sourc e FOOT, ADJUSTABLE SHOE-STYLED POSITIONING DEVICE 11/23/2001 [facility] HANDLING AND/OR CONVEYANCE O F SPECIMEN FOR TRANSFER FROM THE OFFICE TO A LABORATORY 08/28/2000 [facility] OPHTHALMOLOGICAL SERVICES: MEDICAL EXAMINATION AND EVALUATION WITH INITIATION OF DIAGNOSTIC AND TREATMENT PROGRAM; INTERMEDIATE, NEW PATIENT 06/12/2000 [facility] LAPAROSCOPY 08/04/1997 [facility] TRANSFUSION OF PACKED CELLS 08/04/1997 [facility] OTHER BILATERAL ENDOSCOPIC DESTRUCTION OR OCCLUSION OF FALLOPIAN TUBES 10/16/1995 [facility] EXCISION OF OTHER LESION OF SOFT TISSUE OF HAND 10/09/1995 [facility] ELECTROCARDIOGRAM, ROUTINE ECG WITH AT LEAST 12 LEADS; WITH INTERPRETATION AND REPORT 01/27/2013 [facility] SCREENING PAPANICOLAOU SMEAR ; OBTAINING, PREPARING AND CONVEYANCE OF CERVICAL OR VAGINAL SMEAR TO LABORATORY 08/02/2011 [facility] BLOOD PRESSURE MEASURED (CKD)(DM) 07/01/2011 [facility] ELECTROCARDIOGRAM, ROUTINE ECG WITH AT LEAST 12 LEADS; WITH INTERPRETATION AND REPORT 06/26/2011 [facility] COORDINATED CARE FEE, MAINTENANCE RATE 12/20/2009 [facility] COORDINATED CARE FEE, MAINTENANCE RATE 11/20/2009 [facility] COORDINATED CARE FEE, MAINTENANCE RATE 10/20/2009 [facility] COORDINATED CARE FEE, MAINTENANCE RATE 09/19/2009 [facility] COORDINATED CARE FEE, MAINTENANCE RATE 08/22/2009 [facility] SCREENING PAPANICOLAOU SMEAR ; OBTAINING, PREPARING AND CONVEYANCE OF CERVICAL OR VAGINAL SMEAR TO LABORATORY 12/09/2007 [facility] INTERPRETATION OR EXPLANATIO N OF RESULTS OF PSYCHIATRIC, OTH MEDICAL EXAMS/PROCEDURES, OR OTH ACCUMULATED DATA TO FAMILY OR OTH RESPONSIBLE PERSONS,OR ADVISING THEM HOW TO ASSIST PATIENT 02/05/2007 [facility] OPHTHALMOLOGICAL SERVICES: MEDICAL EXAMINATION AND EVALUATION, WITH INITIATION OR CONTINUATION OF DIAGNOSTIC AND TREATMENT PROGRAM; INTERMEDIATE, ESTABLISHED PATIENT 10/16/2006 [facility] OPHTHALMOLOGICAL SERVICES: MEDICAL EXAMINATION AND EVALUATION WITH INITIATION OF DIAGNOSTIC AND TREATMENT PROGRAM; INTERMEDIATE, NEW PATIENT 10/14/2006 [facility] SMOKING AND TOBACCO USE CESSATION COUNSELING VISIT; INTERMEDIATE, GREATER THAN 3 MINUTES UP TO 10 MINUTES 10/10/2006 [facility] HEALTH AND BEHAVIOR INTERVENTION, EACH 15 MINUTES, [id number]; GROUP (2 OR MORE PATIENTS) 01/29/2006 [facility] EDUCATIONAL SUPPLIES, SUCH A S BOOKS, TAPES, AND PAMPHLETS, FOR THE PATIENT'S EDUCATION AT COST TO PHYSICIAN OR OTHER QUALIFIED HEALTH AGRICULTURAL EQUIPMENT OPERATOR 01/27/2006 [facility] HEALTH AND BEHAVIOR INTERVENTION, EACH 15 MINUTES, [id number]; GROUP (2 OR MORE PATIENTS) 01/24/2006 [facility] EDUCATIONAL SUPPLIES, SUCH A S BOOKS, TAPES, AND PAMPHLETS, FOR THE PATIENT'S EDUCATION AT COST TO PHYSICIAN OR OTHER QUALIFIED HEALTH AGRICULTURAL EQUIPMENT OPERATOR 01/24/2006 [facility] SERVICE(S) PROVIDED ON AN EMERGENCY BASIS IN THE OFFICE, WHICH DISRUPTS OTHER SCHEDULED OFFICE SERVICES, IN ADDITION TO BASIC SERVICE 01/22/2006 [facility] INDIVIDUAL PSYCHOTHERAPY, INSIGHT ORIENTED, BEHAVIOR MODIFYING AND/OR SUPPORTIVE, IN AN OFFICE OR OUTPATIENT FACILITY, APPROXIMATELY 45 TO 50 MINUTES [id number] WITH THE PATIENT 01/21/2006 [facility] ANALYSIS OF CLINICAL DATA STORED IN COMPUTERS (EG, ECGS, BLOOD PRESSURES, HEMATOLOGIC DATA) 10/16/2005 [facility] NONINVASIVE EAR OR PULSE OXIMETRY FOR OXYGEN SATURATION; SINGLE DETERMINATION 09/24/2005 [facility] ANALYSIS OF CLINICAL DATA STORED IN COMPUTERS (EG, ECGS, BLOOD PRESSURES, HEMATOLOGIC DATA) 09/16/2005 [facility] ANALYSIS OF CLINICAL DATA STORED IN COMPUTERS (EG, ECGS, BLOOD PRESSURES, HEMATOLOGIC DATA) 09/11/2005 [facility] ELECTROCARDIOGRAM, ROUTINE ECG WITH AT LEAST 12 LEADS; WITH INTERPRETATION AND REPORT 02/21/2005 [facility] INJECTION, MEPERIDINE AND PROMETHAZINE HCL, UP TO 50 MG 02/06/2005 [facility] INJECTION, KETOROLAC TROMETHAMINE, PER 15 MG 01/08/2005 [facility] REMOVAL IMPACTED CERUMEN REQUIRING INSTRUMENTATION, UNILATERAL 01/02/2005 [facility] THERAPEUTIC, PROPHYLACTIC OR DIAGNOSTIC INJECTION (SPECIFY MATERIAL INJECTED); SUBCUTANEOUS OR INTRAMUSCULAR 06/18/2004 [facility] SCREENING PAPANICOLAOU SMEAR ; OBTAINING, PREPARING AND [...] 100 MG 07/04/2003 [facility] PHYS/OTH QUALIFIED HEALTH AGRICULTURAL EQUIPMENT OPERATOR QUALIFIED,EDUCATION,TRAIN,LIC ENSURE/REGULATION (WHEN APPLICABLE) EDUC SER RENDERED TO PATS IN A GRP SETTING (EG,,OBESITY,OR DIABETIC INSTRUCT) 05/16/2003 [facility] NONINVASIVE EAR OR PULSE OXIMETRY FOR OXYGEN SATURATION; SINGLE DETERMINATION 04/22/2003 [facility] NONINVASIVE EAR OR PULSE OXIMETRY FOR OXYGEN SATURATION; SINGLE DETERMINATION 01/12/2003 [facility] SUPP &MATERIAL (EXCEPT SPECTACLE),PROVID,THE PHYS/OTH QUALIFIED HEALTH AGRICULTURAL EQUIPMENT OPERATOR OVER &ABOVE THOSE USUALLY INCLD W THE OFFICE VISIT/OTH SER RENDERED (LIST DRUG,TRAYS,SUPP,OR MATERIAL PROVID) 01/02/2003 [facility] PHYS/OTH QUALIFIED HEALTH AGRICULTURAL EQUIPMENT OPERATOR QUALIFIED,EDUCATION,TRAIN,LIC ENSURE/REGULATION (WHEN APPLICABLE) EDUC SER RENDERED TO PATS IN A GRP SETTING (EG,,OBESITY,OR DIABETIC INSTRUCT) 10/28/2002 [facility] HOSPITALIST SERVICES (LIST SEPARATELY IN ADDITION TO CODE FOR APPROPRIATE EVALUATION AND MANAGEMENT SERVICE) 09/22/2002 [facility] HOSPITALIST SERVICES (LIST SEPARATELY IN ADDITION TO CODE FOR APPROPRIATE EVALUATION AND MANAGEMENT SERVICE) 09/21/2002 [facility] HOSPITALIST SERVICES (LIST SEPARATELY IN ADDITION TO CODE FOR APPROPRIATE EVALUATION AND MANAGEMENT SERVICE) 09/20/2002 [facility] ELECTROCARDIOGRAM, ROUTINE ECG WITH AT LEAST 12 LEADS; INTERPRETATION AND REPORT ONLY 08/26/2002 [facility] CATHETERIZATION, URETHRA; SIMPLE 07/01/2002 [facility] INTRAVENOUS PYELOGRAM 06/08/2002 [facility] VENOUS CATHETERIZATION, NOT ELSEWHERE CLASSIFIED 06/08/2002 [facility] EXPLORATORY LAPAROTOMY 06/08/2002 [facility] OTHER CYSTOSCOPY 06/08/2002 [facility] OTHER UNILATERAL SALPINGO-OOPHORECTOMY 06/08/2002 [facility] INJECTION OF ANTIBIOTIC 06/08/2002 [facility] COMPUTERIZED AXIAL TOMOGRAPH Y OF ABDOMEN 06/08/2002 [facility] OTHER OPERATIONS ON CUL-DE-SAC 06/08/2002 [facility] SUBTOTAL ABDOMINAL HYSTERECTOMY 06/08/2002 [facility] MEDICAL NUTRITION THERAPY; RE-ASSESSMENT AND INTERVENTION, INDIVIDUAL, [id number] WITH THE PATIENT, EACH 15 MINUTES 06/08/2002 [facility] MEDICAL NUTRITION THERAPY; RE-ASSESSMENT AND INTERVENTION, INDIVIDUAL, [id number] WITH THE PATIENT, EACH 15 MINUTES 06/04/2002 [facility] EXCISION OF BONE CYST OR BENIGN TUMOR, WING OF ILIUM, SYMPHYSIS PUBIS, OR GREATER TROCHANTER OF FEMUR; SUPERFICIAL, INCLUDES AUTOGRAFT, WHEN PERFORMED 05/13/2002 [facility] THERAPEUTIC OR DIAGNOSTIC INJECTION (SPECIFY MATERIAL INJECTED); INTRAVENOUS 02/14/2002 [facility] MEDICAL NUTRITION THERAPY; INITIAL ASSESSMENT AND INTERVENTION, INDIVIDUAL, [id number] WITH THE PATIENT, EACH 15 MINUTES 02/11/2002 [facility] Social History Combined list of available smoking, tobacco, and other social history from Department of Defense and Veterans Affairs facilities. Social History Type Response Date Comment Sour e This section is an empty social history section. DoD
--- OUTSIDE RECORDS SUMMARY | 2024-09-30 16:29 | XMS_ITS | Clinical Summary ---
Author Organization [facility] [place] [employer] Address [address] [facility] [place] [address] Care Team Providers Care Form Setter/Driver Name Role Phone Charlene Murillo MD Unavailable [phone] Lenin Frances MD Unavailable [phone] Sylvester Brown MD Unavailable [phone] Cornell Bingham MD Unavailable [phone] Pcp, [address] Primary Care Provide r Unavailable Source Comments [facility],non-owned Affiliates and Associated Physician Practices is amultiple site organization consisting of ambulatory clinics and hospital sitesin [place], [place], [place] and [place]. This disclosure is being madepursuant to the Care Everywhere program and may not contain all information available regarding this patient. Last updated 18.[facility] Allergies Active Allergy Reactions Criticality Noted [...] Active vitamin D, ergocalciferol, (DRISDOL) 1.25 MG (36842 UT) capsule Take 50,000 Units by mouth [...] sprayIndications: Other migraine without status migrainosus, intractable [place] 1 spray into each nostril 2 times [...] Comments Blood Pressure 120/74 06/27/2020 11:23 AM PRODUCTION LEADER Pulse 60 06/27/2020 11:23 AM PRODUCTION LEADER Temperature 35.7 C (96.3 F) 06/27/2020 11:23 AM PRODUCTION LEADER Respiratory Rate 14 06/27/2020 11:23 AM PRODUCTION LEADER Oxygen Saturation 100% 06/27/2020 11:23 AM PRODUCTION LEADER Inhaled Oxygen Concentration - - Weight 70.8 kg (156 lb) 06/27/2020 11:23 AM PRODUCTION LEADER Height 167.6 cm (5' 6 ) 06/27/2020 11:23 AM PRODUCTION LEADER Body Mass Index 25.18 06/27/2020 11:23 AM PRODUCTION LEADER Plan of Treatment Health Maintenance Due Date [...] exam COMPREHENSIVE METABOLIC PANEL 10/08/2018 1:18 PM PRODUCTION LEADER from Last 3 Months or Most Recently [...] of containers..01 ThinPrep Vial Resulting Agency Comment [address] [id number] Natali SANCHEZ LAB - PATHOLOGY/CY TOLOGY ORDERABLES [facility] INSURANCE BILL [address] [place] [address] * COMPREHENSIVE METABOLIC PANEL (10/08/2018 1:18 PM PRODUCTION LEADER) Glucose 98 74 - 106 mg/dL [facility] [...] [facility] INSURANCE BILL Comment:FASTING 10/08/2018 1:18 PM PRODUCTION LEADER 10/08/2018 Narrative Resulting Agency Comment [facility] [address] [place] [phone] Williams Avalos MD LAB - CHEMISTRY KAREN HOLLINS [facility] Organization Address City/State/ZIP Co de Phone Number [facility] INSURANCE BILL [address] [place] [address] from Last 3 Months or Most Recently Relevant to Health Maintenance Advance Directives Documents on File Type Date Recorded Patient Web Content Manager Expl anation Adv Directive/Living Will/POA 12/10/2016 * Full Code (Latest Code Status on File) Date Activated Date Inactivated Comments 12/14/2016 12:49 AM 12/16/2016 12:21 PM * Full Code Date Activated Date Inactivated Comments 12/10/2016 2:26 PM 12/11/2016 5:18 PM * Full Code Date Activated Date Inactivated Comments 12/10/2016 1:49 PM 12/10/2016 2:26 PM Care Teams Form Setter/Driver Relationship Specialty Start Date End Date Pcp, [facility] 3rd PCP - General 09/14/24 Charlene Murillo MD [address] [address] [address] [place] [phone] Consulting Physician Pulmonary Disease 04/09/18 Lenin Frances MD [address] [facility] [address] [place] [address] Pain Management Anesthesiology 10/08/18 Sylvester Brown MD [address] [place] [address] Psychiatry 12/23/18 Cornell Bingham MD [address] [place] [address] Cardiovascular Disease 06/15/19
--- OUTSIDE RECORDS SUMMARY | 2024-09-30 16:29 | XMS_ITS | Encounter Summary ---
Author Organization [facility] Address [address] [place] [address] Care Team Providers Care Skiver Machine Operator Name Role Phone Williams Avalos MD Primary Care Provider Unav syedable Cornell Bingham MD Unavailable [phone] Chris Mahmood DO Primary Care Provider [phone] Fabrizio Thomason MD Unavailable [phone] Shruthi Modi MD Primary Care Provider [phone] David Beltran DO Unavailable [phone] Xiomara Hernandez NP Unavailable [phone] Domingo Elizabeth MD Unavailable [phone] Dmitry Laguna MD Unavailable Unavailable Encounter Details Date Type Department Care Team (Late st Contact Info) Description 07/04/2020 Prep for Procedure [facility] [place] [address] Arnav Borden MD [address] [phone] Social History Tobacco Use Types Packs/Day Years [...] Sex Assigned at Female 09/01/2024 3:25 PM CANE FURNITURE MAKER Legal Sex Female 10:56 PM CDT Gender Identity Female 09/04/2021 12:32 PM CANE FURNITURE MAKER Sexual Orientation Straight 09/04/2021 12 :32 PM CANE FURNITURE MAKER COVID-19 Exposure Response Date Recorded In the last month, have you been in contact with someone who was confirmed or suspected to have Coronavirus / COVID-19? No / Unsure 07/06/2020 7:27 AM CANE FURNITURE MAKER documented as of this encounter Functional Status * RETIRED Are you deaf or do you have serious difficulty hearing Answer Date of Assessment Author Status No 06/23/2020 5:34 PM CANE FURNITURE MAKER Activ e * RETIRED Are you blind or do you have serious difficulty seeing, even when wearing glasses? Answer Date of Assessment Author Status No 06/23/2020 5:34 PM CANE FURNITURE MAKER Activ e * Do you have serious difficulty walking or climbing stairs? Answer Date of Assessment Author Status No 06/23/2020 5:34 PM CANE FURNITURE MAKER Trena Reynoso RN Active * Do you have difficulty dressing or bathing? Answer Date of Assessment Author Status No 06/23/2020 5:34 PM Trena Martin RN Active * Because of a physical, [...] st Contact Info) Description 10/01/2024 8:45 AM CANE FURNITURE MAKER [facility]ointment [facility] [place] [place] [address] Orlando Devries, JOHN [address] [facility] [place] [address] Terese Braga, OTR 1 [place] [address] 11/04/2024 9:00 AM CDT [facility] [address] [facility] [place] [phone] Domingo Elizabteh MD 3 [facility] [address] [place] [address] 11/09/2024 1:15 PM CDT Office Visit [facility] [address] [facility], [address] [place] [address] Radha Valente FNP 3 [facility] [address] [place] [address] documented as of this encounter Results * PRE-SURGICAL/PRE-PROCEDURE CORONAVIRUS (COVID 19) (09/16/2020 11:58 AM CANE FURNITURE MAKER) CORONAVIRUS SARS COV 2 PCR (RESP) NOT DETECTED NOT DETECTED 09/17/2020 3:16 PM CANE FURNITURE MAKER [facility] Comment: A Not Detected (negative) test result for this test means that SARS- CoV-2 RNA was not present in the specimen above the limit of detection. A negative result does not rule out the possibility of COVID-19 and should not be used as the sole basis for treatment or patient management decisions. If COVID-19 is still suspected, based on exposure history together with other clinical findings, re-testing should be considered in consultation with public health authorities. Laboratory test results should always be considered in the context of clinical observations and epidemiological data in making a final diagnosis and patient management decisions. Please review the Fact Sheets and FDA authorized labeling available for health care providers and patients using the following websites: https://www.[employer]/home/Covid-19/HCP/QuestIVD/fact- sheet.html https://www.[employer]/home/Covid-19/Patients/ QuestIVD/fact-sheet.html This test has been authorized by the FDA under an Emergency Use Authorization (EUA) for use by authorized laboratories. Due to the current public health emergency, [employer] is receiving a high volume of samples from a wide variety of swabs and media for COVID-19 testing. In order to serve patients during this public health crisis, samples from appropriate clinical sources are being tested. Negative test results derived from specimens received in non-commercially manufactured viral collection and transport media, or in media and sample collection kits not yet authorized by FDA for COVID-19 testing should be cautiously evaluated and the patient potentially subjected to extra precautions such as additional clinical monitoring, including collection of an additional specimen. Methodology: Nucleic Acid Amplification Test (NAAT) includes RT-PCR or TMA Additional information about COVID-19 can be found at the [employer] website: www.[employer]/Covid19. Test performed at [facility] [address] [place] [address] Director: FATUMA MAYER DO,MPH FIRST TEST NO 09/16/2020 8:48 AM [facility] EMPLOYED IN HEALTHCARE NO 09/16/2020 8:48 AM [facility] SYMPTOMATIC DEFINED BY CDC NO 09/16/2020 8:48 AM [facility] DATE OF SYMPTOM ONSET NO 09/16/2020 12:09 PM [facility] HOSPITALIZATION STATUS NO 09/16/2020 8:48 AM [facility] PATIENT IN ICU NO 09/16/2020 8:48 AM [facility] RESIDENT OF [facility] NO 09/16/2020 8:48 AM [facility] NOT 09/16/2020 8:48 AM CANE FURNITURE MAKER [facility] PATIENT'S RACE BLACK OR 09/16/2020 8:48 AM CANE FURNITURE MAKER [facility] ETHNICITY NONHISPANIC 09/16/2020 8:48 AM CANE FURNITURE MAKER [facility] SOURCE (QST) NASOPHARYNGEAL SWAB 09/16/2020 8:48 AM CANE FURNITURE MAKER [facility] NASOPHARYNGEAL SWAB / Unknown 09/16/2020 11:58 AM CANE FURNITURE MAKER us Arnav Borden MD MICROBIOLOGY - GENERAL KAREN HOLLINS Final Result [facility] [address] [place] [address], [facility] [id number] [place] [address], documented in this encounter Visit Diagnoses Diagnosis Dysphagia- Primary Dysphagia, unspecified Gastric ulcer Gastric ulcer, unspecified as acute or chronic, without mention of hemorrhage, perforation, or obstruction documented in this encounter Additional Health Concerns Infection Onset Date Last Indicated Resolved Time COVID-19 Rule Out 07/04/2020 07/04/2020 07/04/2020 9:11 PM CANE FURNITURE MAKER COVID-19 Rule Out 08/28/2020 08/28/2020 08/30/2020 11:20 AM CANE FURNITURE MAKER COVID-19 Rule Out 09/06/2020 09/06/2020 09/08/2020 2:30 AM CANE FURNITURE MAKER COVID-19 Rule Out 09/16/2020 09/16/2020 09/17/2020 3:16 PM CANE FURNITURE MAKER COVID-19 Rule Out 12/09/2020 12/09/2020 12/10/2020 2:55 PM CDT COVID-19 Rule Out 12/16/2020 12/16/2020 12/17/2020 2:38 PM CDT COVID-19 Rule Out 05/28/2021 05/28/2021 05/28/2021 9:04 AM CDT COVID-19 Rule Out 04/28/2022 04/28/2022 04/28/2022 1:35 PM CDT COVID-19 Rule Out 04/28/2022 04/28/2022 04/28/2022 7:46 PM CDT COVID-19 Rule Out 05/17/2022 05/17/2022 05/18/2022 6:00 PM CDT COVID-19 Rule Out 09/25/2023 09/25/2023 09/25/2023 2:02 PM CANE FURNITURE MAKER COVID-19 Rule Out 05/26/2024 05/26/2024 05/26/2024 1:58 PM CDT documented as of this encounter Care Teams Skiver Machine Operator Relationship Specialty Start Date End Date Williams Avalos MD PCP - General FAMILY PRACTICE 01/28/19 07/05/20 [place] [address] [place] [address] PCP - General FAMILY PRACTICE 07/06/20 10/17/21 Shruthi Modi MD [address] [place] [address] PCP - General FAMILY PRACTICE 10/18/21 Cornell Bingham MD [facility]. [address] [address] [place] Lead Person CARDIOVASCULAR DISEASE 03/01/19 Fabrizio Thomason MD [address] [place] [address] Referring Physician MEDICAL ONCOLOGY 12/06/20 07/03/22 David Beltran DO [address] [place] [address] [address] [place] [address] Consulting Physician INTERNAL MEDICINE 07/04/22 Xiomara Hernandez NP [address] [place] [address], [place] [address] NURSE PRACTITIONER GERONTOLOGY 07/04/22 Domingo Elizabeth MD 3 [place] [address] Consulting Physician Internal Medicine Pulmonary Disease 07/04/22 Dmitry Laguna MD [address] [address] Consulting Physician ENDOCRINOLOGY 07/04/22 documented as of this encounter
--- OUTSIDE RECORDS SUMMARY | 2024-09-30 16:29 | XMS_ITS | Encounter Summary ---
Author Organization [facility] Address [address] [place] [address] Care Team Providers Care Flowers Salesperson Name Role Phone Cornell Bingham MD Unavailable [phone] Shruthi Modi MD Primary Care Provider [phone] David Beltran DO Unavailable [phone] Xiomara Hernandez NP Unavailable [phone] Domingo Elizabeth MD Unavailable [phone] Dmitry Laguna MD Unavailable Unavailable Reason for Referral * Consultation/Treatment (Routine) - Closed Specialty Diagnoses / Procedures Referred By Contac t Referred To Contact HEMATOLOGY/ONCOLOGY Diagnoses Neutrophilia Procedures OFFICE/OUTPATIENT NEW LOW MDM 30-44 MINUTES OFFICE/OUTPT VISIT,NEW,LEVL IV OFFICE/OUTPT VISIT,NEW,LEVL V OFFICE/OUTPT VISIT,EST,LEVL III OFFICE/OUTPT VISIT,EST,LEVL IV OFFICE/OUTPT VISIT,EST,LEVL V Shruthi Modi MD [address] [place] [address] Phone: tel: fax: [facility] [address] [address] Phone: tel: fax: Referral ID Status Reason Start Date Expiration Date V isits Requested Visits Authorized [id number] Closed Specialty Services 07/25/2023 08/23/2024 99 99 Scheduling Instructions Pt found to have ABSOLUTE NEUTROPHILIA on CBC. WBCs wnl, not anemic, B12 wnl and iron wnl. Pt c/o chronic fatigue. Please eval. AN MAN Encounter Details Date Type Department Care Team (Late st Contact Info) Description 07/22/2023 [employer]read Message Enc [facility] Family Medicine [facility] [address] [place] [address] Shruthi Modi MD [address] [place] [address] DIFF Social History Tobacco Use Types Packs/Day Years [...] declined 09/01/2022 How often do you attend rastafarian or quaker serv ices? Patient declined 09/01/2022 Do you belong to any clubs o r organizations such as rastafarian groups, unions, fraternal or athletic groups, or [...] Answer Date Recorded Patient Health Questionnaire-2 Score 6 05/12/2023 [facility] of Occupat ional Health - Occupational Stress [...] Sex Assigned at Female 09/01/2024 3:25 PM JORDAN MAN Legal Sex Female 10:56 PM CDT Gender Identity Female 09/04/2021 12:32 PM JORDAN MAN Sexual Orientation Straight 09/04/2021 12 :32 PM JORDAN MAN documented as of this encounter Functional Status * RETIRED Are you deaf or do you have serious difficulty hearing Answer Date of Assessment Author Status No 08/29/2022 3:53 PM JORDAN MAN Activ e * RETIRED Are you blind or do you have serious difficulty seeing, even when wearing glasses? Answer Date of Assessment Author Status No 08/29/2022 3:53 PM JORDAN MAN Activ e * Do you have serious difficulty walking or climbing stairs? Answer Date of Assessment Author Status No 08/29/2022 3:53 PM JORDAN MAN Kathy Ellis RN Active * Do you have difficulty dressing or bathing? Answer Date of Assessment Author Status No 08/29/2022 3:53 PM JORDAN MAN Kathy Ellis RN Active * Because of a physical, mental, or emotional condition, do you have difficulty doing errands alone such as visiting a doctor's office or shopping? Answer Date of Assessment Author Status No 08/29/2022 3:53 PM JORDAN MAN Kathy Ellis RN Active documented as of this encounter Mental Status * Because of a physical, mental, or emotional condition, do you have serious difficulty concentrating, remembering, or making decisions? Answer Entry Date Author Status No 08/29/2022 3:53 PM Kathy Carballo RN Active documented in this encounter Progress Notes * Shruthi Modi MD - 07/25/2023 5:58 PM Mendoza Perez MA 07/22/2023 1:56 PM JORDAN MAN ----- Message ----- From: Kerry Barroso Sent: 07/22/2023 1:51 PM JORDAN MAN To: Shruthi Perry Nurse Subject: DIFF Could these test results be the reason for my fatigue and lethargy? I don't understand, even thoughit's within normal limits, why my vitamin D3 is so low since I take it every day. Would a stimulantmedicatio n help with the fatigue? It's bringing me down, it's going on 6 months now. What can we do? I am starting to turn to 5-hour energy drinks just to get through the day. Thanks, Kerry Barroso AN MAN documented in this encounter Plan of Treatment Upcoming Encounters Date Type Department Care Team (Late st Contact Info) Description 10/01/2024 8:45 AM JORDAN MAN Appointment [facility] [place] [address] [place] [address] Orlando Devries NP [address] [facility] [place] [address] Terese Braga OTR 1 [place] [address] 11/04/2024 9:00 AM CDT Office Visit [facility] Multispecialty Care - [facility] [address] [facility] [place] [address] Domingo Elizabeth MD [address] [facility] [address] [place] [address] 11/09/2024 1:15 PM CDT Office Visit [facility] [address] [facility], [address] [place], [place] [address] Radha Valente FNP 3 [facility] [address] [place], [place] [address] Scheduled Referrals Name Type Priority Associated Diagnoses Orde r Schedule Ambulatory referral to Hematology Referral Routine Neutrophilia Ordered: 07/25/2023 documented as of this encounter Goals Goal Patient Goal Type Associated Problems Recent Progress Patient-Stated? Author Health - patient able to perform ADLs independently Lifestyle No Scott Dos Santos, RN Medications - able to self-administer medications Lifestyle No Scott Dos Santos, RN documented as of this encounter Visit Diagnoses Diagnosis Neutrophilia- Primary Other specified disease of white blood cells documented in this encounter Additional Health Concerns Infection Onset Date Last Indicated Resolved Time COVID-19 Rule Out 09/25/2023 09/25/2023 09/25/2023 2:02 PM JORDAN MAN COVID-19 Rule Out 05/26/2024 05/26/2024 05/26/2024 1:58 PM CDT Assessment Noted Time PHQ-9 Depression Total Score: 24 023 9:34 AM CDT documented as of this encounter Care Teams Flowers Salesperson Relationship Specialty Start Date End Date Shruthi Modi MD [facility] [place] [address] PCP - General FAMILY PRACTICE 10/18/21 Cornell Bingham MD [address] [facility]. [facility] [address] [place] [address] Fisher Forest Engineer CARDIOVASCULAR DISEASE 03/01/19 David Beltran DO [address] [place] [address] [address] [place] [phone] Consulting Physician INTERNAL MEDICINE 07/04/22 Xiomara Hernandez NP [address] [place] [address], [address] [place] [address] NURSE PRACTITIONER GERONTOLOGY 07/04/22 Domingo Elizabeth MD 3 [facility] [address] [place] [address] Consulting Physician Internal Medicine Pulmonary Disease 07/04/22 Dmitry Laguna MD [address] [address] Consulting Physician ENDOCRINOLOGY 07/04/22 documented as of this encounter
--- OUTSIDE RECORDS SUMMARY | 2024-09-30 16:29 | XMS_ITS | Encounter Summary ---
Author Organization [facility] Address [address] [place] [address] Care Team Providers Care Lead Technical Architect Name Role Phone Cornell Bingham MD Unavailable [phone] Fabrizio Thomason MD Unavailable [phone] Shruthi Modi MD Primary Care Provider [phone] David Beltran DO Unavailable [phone] Xiomara Hernandez NP Unavailable [phone] Domingo Elizabeth MD Unavailable [phone] Dmitry Laguna MD Unavailable Unavailable Encounter Details Date Type Department Care Team (Late st Contact Info) Description 03/24/2022 MyChart Message Enc [facility] Multispecialty Care - [facility] [address] [facility], [address] [place] [phone] Gideon Rodriguez MD [address] [place], [place] [phone] injections Social History Tobacco Use Types Packs/Day Years [...] Sex Assigned at Female 09/01/2024 3:25 PM TRIM LINE WORKER Legal Sex Female 10:56 PM CDT Gender Identity Female 09/04/2021 12:32 PM TRIM LINE WORKER Sexual Orientation Straight 09/04/2021 12 :32 PM TRIM LINE WORKER COVID-19 Exposure Response Date Recorded In the last 10 days, have yo u been in contact with someone who was confirmed or suspected to have Coronavirus/COVID-19? No / Unsure 03/14/2022 12:31 PM CDT documented as of this encounter [...] st Contact Info) Description 10/01/2024 8:45 AM TRIM LINE WORKER Appointment [facility] Outpatient Therapy [address] [place] [address] Orlando Devries NP [address] [facility] [place] [address] Terese Braga, OTR [address] [place] [address] 11/04/2024 9:00 AM CDT Office Visit [facility] Multispecialty Care - [facility] [address] [facility] [facility] [place] [id number] Domingo Elizabeth MD [address] [facility] [address] [place] [address] 11/09/2024 1:15 PM CDT Office Visit [facility] [address] [facility] [place] [address] Radha Valente FNP [address] [facility] [address] [place] [address] documented as of this encounter Visit Diagnoses Not on filedocumented in this encounter Additional Health Concerns Infection Onset Date Last Indicated Resolved Time COVID-19 Rule Out 04/28/2022 04/28/2022 04/28/2022 1:35 PM CDT COVID-19 Rule Out 04/28/2022 04/28/2022 04/28/2022 7:46 PM CDT COVID-19 Rule Out 05/17/2022 05/17/2022 05/18/2022 6:00 PM CDT COVID-19 Rule Out 09/25/2023 09/25/2023 09/25/2023 2:02 PM TRIM LINE WORKER COVID-19 Rule Out 05/26/2024 05/26/2024 05/26/2024 1:58 PM CDT Assessment Noted Time PHQ-9 Depression Total Score: 15 022 2:20 PM CDT documented as of this encounter Care Teams Lead Technical Architect Relationship Specialty Start Date End Date Shruthi Modi MD [address] [place] [address] PCP - General FAMILY PRACTICE 10/18/21 Cornell Bingham MD [address] [place] [address] [place] [facility] CARDIOVASCULAR DISEASE 03/01/19 Fabrizio Thomason MD [address] [facility] [address] [place] [address] Referring Physician MEDICAL ONCOLOGY 12/06/20 07/03/22 aDvid Beltran DO [address] [place] [address] [address] [place] [id number] Consulting Physician INTERNAL MEDICINE 07/04/22 Xiomara Hernandez MINE ENVIRONMENTAL ENGINEER [address] [place] [address], [address] [place] [address] NURSE PRACTITIONER GERONTOLOGY 07/04/22 Domingo Elizabeth MD [address] [place] [address] Consulting Physician Internal Medicine Pulmonary Disease 07/04/22 Dmitry Laguna MD [address] [place] [address] Consulting Physician ENDOCRINOLOGY 07/04/22 documented as of this encounter
--- OUTSIDE RECORDS SUMMARY | 2024-09-30 16:29 | XMS_ITS | Encounter Summary ---
Author Organization [facility] Address [address] [place] [address] Phone Care Team Providers Care Appraiser Personal Property Name Role Phone Paddy Riley MD, Fabrizio Unavailable [phone] Shruthi Modi MD Primary Care Provider Dmitry Laguna MD Unavailable [phone] Reason for Visit * Reason Onset Date Comments Lab Results 09/21/2024 Encounter Details Date Type Department Care Team (Late st Contact Info) Description 09/21/2024 Telephone [facility] Endocrinology Metabolism and Lipid [address] [facility] 5th Floor [address] [place], [place] [...] on file Legal Sex Female 6:55 AM INTERCEPTOR OPERATOR Gender Identity Female 07/23/2020 8:34 PM INTERCEPTOR OPERATOR Sexual Orientation Straight 07/23/2020 8: 34 PM INTERCEPTOR OPERATOR documented as of this encounter Miscellaneous Notes * Telephone Encounter - Regla Gil RN - 09/21/2024 4:45 PM INTERCEPTOR OPERATOR Images from the original note were not included. Discussed via phone with patient She will have A1c and BMP done on - faxed to [phone]- she didn't have A1c drawn bc she [...] visit and she could also see CDE RCEPTOR OPERATOR documented in this encounter Plan of Treatment [...] documented as of this encounter Care Teams Appraiser Personal Property Relationship Specialty Start Date End Date Shruthi Modi MD [address] [place] [address] PCP - General Family Practice 10/24/21 Fabrizio Thomason Jr., MD Medical Oncologist/Hematologis t Medical Oncology 03/02/21 Dmitry Laguna MD [address] [place] [address] Referring Physician Endocrinology Diabetes & Metabolism 05/21/23 documented as of this encounter
--- OUTSIDE RECORDS SUMMARY | 2024-09-30 16:29 | XMS_ITS | Clinical Summary ---
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 Smokeless Tobacco: Never Tobacco Cessation:Counseling Given: No Comments:Quit Date January 2022. Alcohol Use Standard Drinks/Week Comments Yes 0 [...] declined 09/01/2022 How often do you attend jain or yarsanism serv ices? Patient declined 09/01/2022 Do you belong to any clubs o r organizations such as jain groups, unions, fraternal or athletic groups, or [...] Answer Date Recorded Patient Health Questionnaire-2 Score 2 09/28/2024 [facility] of Occupat ional Health - Occupational Stress [...] Sex Assigned at Female 09/01/2024 3:25 PM MATTRESS FILLER Legal Sex Female 10:56 PM CDT Gender Identity Female 09/04/2021 12:32 PM MATTRESS FILLER Sexual Orientation Straight 09/04/2021 12 :32 PM MATTRESS FILLER Last Filed Vital Signs Vital Sign Reading Time Taken Comments Blood Pressure 121/81 09/28/2024 2:07 PM MATTRESS FILLER Pulse 72 09/28/2024 2:07 PM MATTRESS FILLER Temperature 36.3 C (97.3 F) 09/28/2024 2:07 PM MATTRESS FILLER Respiratory Rate 12 09/28/2024 2:07 PM MATTRESS FILLER Oxygen Saturation 100% 09/28/2024 2:07 PM MATTRESS FILLER Inhaled Oxygen Concentration - - Weight 69.1 kg (152 lb 6.4 oz) 09/28/2024 2:07 P M MATTRESS [facility]ER Height 168.9 cm (5' 6.5 ) 09/28/2024 2:07 PM MATTRESS FILLER Body Mass Index 24.23 09/28/2024 2:07 PM MATTRESS FILLER Plan of Treatment Upcoming Encounters Date Type Department Care Team (Late st Contact Info) Description 10/01/2024 8:45 AM MATTRESS FILLER Appointment [facility] [place] [address] Orlando Devries NP [address] [place] [address] Terese Braga, OTR 1 [place] [address] 11/04/2024 9:00 AM CDT Office Visit [facility] - [facility] [address] [facility] [place] [phone] Kayley Carson MD [address] [facility] [address] [place] [address] 11/09/2024 1:15 PM CDT Office Visit [facility] [address] [facility] [place], [place] [phone] Radha Valente FNP [address] [facility] [address] [place], [place] [address] Health Maintenance Due Date Last Done Comments Hepatitis B Vaccines (1 of 3 - 19+ 3-dose series) 1988 COVID-19 Vaccine (2023- season) 2024 08/29/2023, 05/12/2023, 10/22/2022, Additional history exists Influenza Adult (#1) 2024 05/12/2023, 10/29/2022, 06/12/2022, Additional history exists Lung Cancer Screening 08/25/2024 08/25/2023 Kidney Health Evaluation 02/02/2025 02/03/2024 Hemoglobin A1C 03/23/2025 09/23/2024, 03/18, 05/15/2023, Additional history exists Diabetes: Retinopathy Eye Exam 03/25/2025 03/25/2023 Annual Physical 08/25/2025 08/25/2024, 05/12/2023 Lipid Panel 09/20/2025 09/20/2024, 05/20, 12/23/2022, Additional history exists Mammogram Screening 09/03/2026 09/03/2024, 07/01/2024, 05/02/2022, Additional history exists DTaP, Tdap and Td Vaccines (10 - Td or Tdap) 10/29/2032 10/29/2022, 12/31/2021, 10/08/2018, Additional history exists Colorectal Cancer Screening Colonoscopy (10 Years) 12/09/2033 12/10/2023, 05/23/2021, 05/23/2021, Additional history exists Zoster Vaccines Completed 08/22/2020, 12/2020, 06/15/2020, Additional history exists Hepatitis C Completed 05/06/2022 Pneumococcal Vaccine: Pediatrics (0 to 5 Years) and At-Risk Patients (6 to 64 Years) Completed 05/12/2023, 06/15/2019, 06/15/2019, Additional history exists PHQ-2 (Physician [place]) Completed 09/28/2024 Meningococcal B Vaccine Aged Out No l onger eligible based on patient's age to complete this topic Meningococcal Vaccine Aged Out No mario jennifer eligible based on patient's age to complete this topic RSV Immunizations Under 20 Months Aged Out No longer eligible based on patient's age to complete this topic Goals Goal Patient Goal Type Associated Problems Recent Progress Patient-Stated? Author Health - patient able to perform ADLs independently Lifestyle No Scott Dos Santos, RN Medications - able to self-administer medications Lifestyle No Scott Dos Santos, RN Medical Devices Implanted Type Area Marketing Research Coordinator Device Identifier Shelf Expiration Date Model / Serial / Lot Manning Plate 40mm Implanted:Qty : 1 on 07/08/2022 by Gideon Rodriguez MD at [facility] O'PERFECTO Plate N/A: Spine Cervical [employer] DIV [employer] NI [id number] / / Manning [id number] St Kaia Implanted:Qty : 6 on 07/08/2022 by Gideon Rodriguez MD at [facility] Screw N/A: Spine Cervical [employer] NI [id number] / / Stent Ureteral 4.7fr 24cm Taper Pusher Fluoro Marker Atraumatic Insertion Inlay [place] Polymer Phreecoat Sterile Latex Free Disposable [place] [employer] Green - [id number] Implanted:Qty : 1 on 12/18/2020 by Justo Badillo MD at [facility] Stent Right: Ureter [employer] - DIV C R [employer] [id number] 10/15/2023 [id number] / / [id number] Stent Ureteral 4.7fr 24cm Taper Pusher Fluoro Marker Atraumatic Insertion Inlay [place] Polymer Phreecoat Sterile Latex Free Disposable [place] [employer] Green - [id number] Implanted:Qty : 1 on 12/18/2020 by Justo Badillo MD at [facility] Stent Left: Ureter [employer] DIV [employer] [id number] 10/15/2023 [id number] / / [id number] Bio Dbm Putty Implanted:Qty : 1 on 07/08/2022 by Gideon Rodriguez MD at [facility] Tissue N/A: Spine Cervical [id number] 12/22/2023 [id number] / / [id number] Allograft Implanted:Qty : 1 on 07/08/2022 by Gideon Rodriguez MD at [facility] Tissue N/A: Spine Cervical [employer] NI [id number] 04/10/2026 [id number] / [id number] / Capsule Pill Cam - [id number] Implanted:Qty : 1 on 02/08/2022 by Penelope Starkey RN at [facility] COVIDIEN 03/25/2023 [id number] / / [id number] Description:Pt swallowed cap tasha @ 0735 , capsule will pass during bowel movement Allograft Implanted:Qty : 1 on 07/08/2022 by Gideon Rodriguez MD at [facility] N/A: Spine Cervical [employer] NI [id number] 04/24/2026 [id number] / [id number] / Explanted Type Area Marketing Research Coordinator Device Identifier Shelf Expiration Date Model / Serial / Lot Distration Pin 12mm - [id number] Explanted:Qty: 1 on 07/08/2022 by Gideon Rodriguez MD at [facility] Pin N/A: Spine Cervical [employer] DP-12-TB / / Distration Pin 12mm - [id number] Explanted:Qty: 1 on 07/08/2022 by Gideon Rodriguez MD at [facility] Pin N/A: Spine Cervical [employer] DP-12-TB / / Temp Pin Explanted:Qty: 2 on 07/08/2022 by Gideon Rodriguez MD at [facility] N/A: Spine Cervical [employer] - DIV ZACHARY NI [id number] / / Procedures Procedure Name Priority Date/Time Associated Diagnosis Comments BASIC METABOLIC PANEL Routine 09/23/2024 12:25 PM MATTRESS FILLER Hyperkalemia HEMOGLOBIN, GLYCOSYLATED Routine 09/23/2024 12:25 PM MATTRESS FILLER Type 2 diabetes mellitus with hyperglycemia ([facility] HHS/HCC) VITAMIN B-12 Routine 09/20/2024 3:09 PM MATTRESS FILLER Type 2 diabetes mellitus with hyperglycemia ([facility] HHS/HCC) PHOSPHORUS, INORGANIC PHOSPHATE Routine 09/20/2024 3:09 PM MATTRESS FILLER Type 2 diabetes mellitus with hyperglycemia ([facility] HHS/HCC) VITAMIN D, 25 OH Routine 09/20/2024 3:09 PM MATTRESS FILLER Type 2 diabetes mellitus with hyperglycemia ([facility] HHS/HCC) BASIC METABOLIC PANEL Routine 09/20/2024 3:09 PM MATTRESS FILLER Type 2 diabetes mellitus with hyperglycemia ([facility] HHS/HCC) HEPATIC FUNCTION PANEL Routine 5 3:09 PM MATTRESS FILLER Type 2 diabetes mellitus with hyperglycemia ([facility] HHS/HCC) LIPID PANEL Routine 09/20/2024 3:09 PM MATTRESS FILLER Type 2 diabetes mellitus with hyperglycemia ([facility] HHS/HCC) THYROXINE, FREE (FT4) Routine 09/20/2024 3:09 PM MATTRESS FILLER Type 2 diabetes mellitus with hyperglycemia ([facility] HHS/HCC) THYROID STIM HORMONE TSH Routine 09/20/2024 3:09 PM MATTRESS FILLER Type 2 diabetes mellitus with hyperglycemia ([facility] HHS/HCC) US BREAST RT BIRAD LTD YECENIA 5 9:17 AM MATTRESS FILLER Inversion of right nipple History of dimpling of breast skin Pain of right breast MG DIAG W LENY RT DIGI Routine 5 8:35 AM MATTRESS FILLER Inversion of right nipple History of dimpling of breast skin Pain of right breast MRI LUMB SPINE WO CON STAT 09/01/2024 4:19 PM MATTRESS FILLER Lumbar radiculopathy URINE BACTERIA CULTURE Routine 4 11:29 AM MATTRESS FILLER Dysuria URINALYSIS AUTO DIP Routine 08/06/2024 Dysuria INJECT NERV BLCK,GREAT OCCIPTL 07/28/2024 2:03 PM MATTRESS FILLER Bilateral occipital neuralgia POLYSOMNOGRAPHY 4 OR MORE PARAMETERS Routine 07/25/2024 8:30 PM MATTRESS FILLER Snoring NM EXER NUC STRESS TEST 1 DAY W TRACING Routine 07/23/2024 10:07 AM MATTRESS FILLER Chest pain, unspecified type CARDIOLOGY STRESS TEST ONLY, EXERCISE Routine 07/23/2024 8:10 AM MATTRESS FILLER Chest pain, unspecified type Acute embolism and thrombosis of left internal jugular vein (CMS/HCC HHS/HCC) DVT (deep venous thrombosis) (CMS/HCC HHS/HCC) Hypotension Fibromyalgia Type 2 diabetes mellitus with hyperglycemia, without long-term current use of insulin (CMS/HCC HHS/HCC) Hypertension TIA (transient ischemic attack) Dyslipidemia US BREAST RT BIRAD LTD YECENIA 3:50 PM MATTRESS FILLER Mass of right breast, unspecified quadrant MG DIAG W LENY BILAT DIGI YECENIA 07/01/2024 2:30 PM MATTRESS FILLER Mass of right breast, unspecified quadrant INJECT TRIGGER POINT, 1 OR 2 07/01/2024 10:50 AM MATTRESS FILLER Myofascial pain CT CHEST WO CON Routine 08/25/2023 1:47 PM MATTRESS FILLER Solitary pulmonary nodule DIABETIC RETINOPATHY EXAM (NEGATIVE)(SCAN ORDER) Routine 03/25/2023 HEPATITIS C ANTIBODY Routine 05/06/2022 11:46 AM CDT Screening examination for poliomyelitis COLONOSCOPY Routine 05/23/2021 12:45 PM CDT from Last 3 Months or Most Recently Relevant to Health Maintenance Results * (ABNORMAL) HEMOGLOBIN, GLYCOSYLATED (09/23/2024 12:25 PM MATTRESS FILLER) HGB A1C 6.8(H) <5.7 % 09/24/2024 8:49 PM MATTRESS FILLER [facility] Comment: ADA GUIDELINES 2010 5.7 TO 6.4% INCREASED RISK OF DIABETES > OR = 6.5% CONSISTENT WITH DIABETES ESTIMATED AVG GLUCOSE 148 mg/dL 09/24/2024 8:49 PM MATTRESS FILLER [facility] 09/23/2024 12:2 5 PM MATTRESS FILLER us Bita Irby MD LABORATORY Final Result [facility] [address] [place] [address], * (ABNORMAL) BASIC METABOLIC PANEL (09/23/2024 12:25 PM MATTRESS FILLER) Only the most recent of2 resultswithin the time period is included. [facility] Signature GLUCOSE 110(H) 70 - 99 MG/DL 09/23/2024 1:02 PM [facility] BUN 19(H) 7 - 18 MG/DL 09/23/2024 1:02 PM [facility] CREATININE S/P/B 0.98 0.55 - 1.02 MG/DL 09/23/2024 1:02 PM [facility] SODIUM S/P/B 132(L) 136 - 145 MMOL/L 09/23/2024 1:02 PM [facility] POTASSIUM S/P/B 5.3(H) 3.5 - 5.1 MMOL/L 09/23/2024 1:02 PM [facility] CHLORIDE S/P/B 100 97 - 115 MMOL/L 09/23/2024 1:02 PM [facility] CO2 28.7 21 - 32 MMOL/L 09/23/2024 1:02 PM [facility] CALCIUM S/P/B 9.9 8.5 - 10.1 MG/DL 09/23/2024 1:02 PM [facility] ANION GAP 3.3 2 - 10 MMOL/L 09/23/2024 1:02 PM [facility] BUN CREATININE RATIO 19.5 6 - 26 09/23/2024 1:02 PM [facility] GFR ESTIMATE 68(L) >90 ML/MIN/1.7 3 M2 09/23/2024 1:02 PM [facility] Comment: NOTE: eGFR is not calculated for patients <18 years of age or gender unknown. This is an estimated GFR calculation using the new CKD EPI creatinine equation without race and so does not require a correction factor for race. This estimated GFR should not be used for calculating drug doses. 09/23/2024 12:2 5 PM MATTRESS FILLER Bita Irby MD LABORATORY Final Result Performing Organization Address City/[facility]/ZIP Co de Phone Number [facility] [address] [place] [address], * VITAMIN B-12 (09/20/2024 3:09 PM MATTRESS FILLER) VITAMIN B12 S/P/B 874 254 - 1,320 PG/ML 09/20/2024 4:22 PM MATTRESS FILLER [facility] 09/20/2024 3:09 PM MATTRESS FILLER Bita Irby MD LABORATORY Final Result Performing Organization Address [facility] Co de Phone Number [facility] [address] [place] [address], * LIPID PANEL (09/20/2024 3:09 PM MATTRESS FILLER) CHOLESTEROL 100 <200 MG/DL 09/20/2024 4:16 PM MATTRESS FILLER [facility] TRIGLYCERIDES 96 <150 MG/DL 09/20/2024 4:16 PM MATTRESS FILLER [facility] HDL 58 >40.0 MG/DL 09/20/2024 4:16 PM MATTRESS FILLER [facility] LDL (CALCULATED) 23 <100 MG/DL 09/20/19 25 4:16 PM MATTRESS FILLER [facility] NON HDL CHOLESTEROL 42 <130 MG/DL 09/20 4:16 PM MATTRESS FILLER [facility] CHOL/HDL RATIO 1.7 0.0 - 4.5 09/20/2024 4:16 PM MATTRESS FILLER [facility] VLDL CALCULATION 19 5 - 55 MG/DL 09/20/2024 4:16 PM [facility] LIPID INTERPRETATION 09/20/2024 4:16 PM [facility] Comment: [facility] REPORT RECOMMENDATIONS: ADULT CHILD LOW RISK: CHOLESTEROL <200 <170 TRIGLYCERIDE <150 --- HDL >=60 --- LDL <100 <110 BORDERLINE: CHOLESTEROL 200-239 170-199 TRIGLYCERIDE 150-199 --- HDL 40-59 --- LDL 100-159 110-129 HIGH RISK: CHOLESTEROL >=240 >=200 TRIGLYCERIDE >=200 --- HDL <40 --- LDL >=160 >=130 09/20/2024 3:09 PM MATTRESS FILLER Bita Irby MD LABORATORY Final Result [facility] [address] [place] [address], [place] [phone] * HEPATIC FUNCTION PANEL (09/20/2024 3:09 PM MATTRESS FILLER) TOTAL PROTEIN S/P/B 7.7 6.4 - 8.2 G/DL 09/20/2024 4:16 PM [facility] ALBUMIN S/P/B 4.0 3.4 - 5.0 G/DL 09/20/2024 4:16 PM [facility] BILIRUBIN TOTAL S/P/B 0.3 0.2 - 1.2 MG/DL 09/20/2024 4:16 PM [facility] Comment: THIS ASSAY IS NOT RECOMMENDED FOR PATIENTS UNDERGOING TREATMENT WITH ELTROMBOPAG DUE TO THE POTENTIAL FOR FALSELY ELEVATED RESULTS. BILIRUBIN DIRECT S/P/B 0.1 0.0 - 0.20 MG/DL 09/20/2024 4:16 PM [facility] BILIRUBIN INDIRECT S/P/B 0.2 0.0 - 0.9 MG/DL 09/20/2024 4:16 PM MATTRESS FILLER [facility] ALKALINE PHOSPHATASE S/P/B 116 50 - 136 U/L 09/20/2024 4:16 PM MATTRESS FILLER [facility] AST 26 15 - 37 U/L 09/20/2024 4:16 PM MATTRESS FILLER [facility] ALT 42 14 - 55 U/L 09/20/2024 4:16 PM MATTRESS FILLER [facility] A/G RATIO 1.1 1.0 - 2.0 RATIO 09/20/2024 4:16 PM MATTRESS FILLER [facility] 09/20/2024 3:09 PM MATTRESS FILLER Bita Irby MD LABORATORY Final Result [facility] [address] [place] [address], * THYROXINE, FREE (FT4) (09/20/2024 3:09 PM MATTRESS FILLER) FREE T4 1.09 0.76 - 1.46 NG/DL 09/20/2024 4:16 PM MATTRESS FILLER [facility] 09/20/2024 3:09 PM MATTRESS FILLER Bita Irby MD LABORATORY Final Result [facility] [address] [place] [address], [place] [phone] * THYROID STIM HORMONE TSH (09/20/2024 3:09 PM MATTRESS FILLER) TSH 1.280 0.358 - 3.74 uIU/ML 09/20/2024 4:16 PM MATTRESS FILLER [facility] Comment: HIGH DOSES OF BIOTIN MAY INTERFERE WITH THIS TEST RESULT. CORRELATION TO CLINICAL HISTORY AND PRESENTATION RECOMMENDED. 09/20/2024 3:09 PM MATTRESS FILLER Bita Irby MD LABORATORY Final Result Performing Organization Address City/[facility]/ZIP Co de Phone Number [facility] [address] [place] [address], * PHOSPHORUS, INORGANIC PHOSPHATE (09/20/2024 3:09 PM MATTRESS FILLER) PHOSPHORUS 3.7 2.5 - 4.9 MG/DL 09/20/2024 4:16 PM MATTRESS FILLER [facility] 09/20/2024 3:09 PM MATTRESS FILLER Bita Irby MD LABORATORY Final Result Performing Organization Address [facility] Co de Phone Number [facility] [address] [place] [id number], * VITAMIN D, 25 OH (09/20/2024 3:09 PM MATTRESS FILLER) VITAMIN D 25 HYDROXY S/P/B 37 30 - 100 NG/ML 09/20/2024 4:07 PM MATTRESS FILLER [facility] Comment: INTERPRETATION DEFICIENT <20 INSUFFICIENT 20-29 SUFFICIENT 30-100 09/20/2024 3:09 PM MATTRESS FILLER Bita Irby MD LABORATORY Final Result Performing Organization Address City/[facility]/ZIP Co de Phone Number [facility] [address] [place] [address], * US BREAST RT BIRAD LTD (09/03/2024 9:17 AM MATTRESS FILLER) Only the most recent of2 resultswithin the time period is included. Anatomical Region Laterality Modality Breast Right Ultrasound 09/03/2024 9:47 AM MATTRESS FILLER Impressions 09/03/2024 2:10 PM MATTRESS FILLER IMPRESSION: Interval development of asymmetric periareolar dermal thickening. No associated parenchymal mass, architectural distortion, or developing asymmetry. Physical appearance of the right breast not overtly worrisome for inflammatory breast cancer; however, symptoms did not resolve with antibiotic treatment, subtle asymmetric dermal thickening persists, and patient desires skin biopsy given first degree family history of breast cancer. Skin biopsy should be considered. RECOMMENDATION: Biopsy should be consideredRight Findings, impression, and recommendation were discussed with the patient immediately following exam completion. OVERALL IMAGING ASSESSMENT: ACR BI-RADS 4 - SUSPICIOUS FINDING(S) - BIOPSY SHOULD BE CONSIDERED. SUBCATEGORY: ACR BI-RADS 4A - LOW SUSPICION FOR MALIGNANCY (Between 3% to 10% Likelihood Ordered By: SHRUTHI MODI Interpreted By: Abhi Macdonald, 09/03/2024 9:47 AM Narrative 09/03/2024 2:10 PM MATTRESS FILLER [facility] [address] [place] [address] EXAMINATION: MG DIANA Cardenas LENY RT DIGI, US BREAST RT BIRAD LTD [id number] INDICATIONS: RIGHT BREAST PAIN, NIPPLE INVERSION AND HX OF DIMPLING OF SKIN ON RIGHT BREAST TECHNIQUE: Digital full field CC, ML, and MLO views and spot compression CC and MLO views of the right breast. 3-D Tomosynthesis technique was utilized. This study was read with the assistance of a computer-aided detection system. Targeted grayscale and color Doppler ultrasound imaging of the right breast. HISTORY: Patient presents with approximately 3 week history of a tender palpable mass behind the right nipple with associated nipple retraction, skin dimpling, and single episode of nonspontaneous milky white nipple discharge. Patient treated with an completed a course of antibiotics without resolution.Family history of breast cancer in sister. No personal history of breast cancer or prior breast biopsy. COMPARISON: 07/01/2024, 05/02/2022, 11/26/2021, 03/23/2021, 01/31/2021, and 07/11/2014. TISSUE DENSITY: There are scattered areas of fibroglandular density. FINDINGS: Mammogram: Interval development of smooth periareolar dermal thickening asymmetrically pronounced superiorly. Effacing retroareolar fibronodular tissue without retroareolar mass, developing asymmetry, architectural distortion. No nipple inversion. No suspicious microcalcification. Physical Exam: No nipple retraction or discharge. No skin erythema, skin lesion, or definite skin dimpling. Sonogram: Targeted sonographic evaluation of the right periareolar breast demonstrates subtle asymmetric dermal thickening along the superior margin of the areola. No associated hypervascularity on color Doppler ultrasound. No nipple retraction. No subdermal mass, fluid collection, or ductal ectasia. No abnormal posterior acoustic shadowing. Procedure Note Abhi Macdonald MD - 09/03/2024 [facility] [address] [place] [address] EXAMINATION: MG DIANA Cardenas LENY RT DIGI, US BREAST RT BIRAD LTD [id number] INDICATIONS: RIGHT BREAST PAIN, NIPPLE INVERSION AND HX OF DIMPLING OFSKIN ON RIGHT BREAST TECHNIQUE: Digital full field CC, ML, and MLO views and spot compressionCC and MLO views of the right breast. 3-D Tomosynthesis technique wasutilized. This study was read with the assistance of a computer-aideddetection system. Targeted grayscale and color Doppler ultrasound imagingof the right breast. HISTORY: Patient presents with approximately 3 week history of a tenderpalpable mass behind the right nipple with associated nipple retraction,skin dimpling, and single episode of nonspontaneous milky white nippledischarge. Patient treated with an completed a course of antibioticswithout resolution.Family history of breast cancer in sister. No personalhistory of breast cancer or prior breast biopsy. COMPARISON: 07/01/2024, 05/02/2022, 11/26/2021, 03/23/2021, 01/31/2021, and07/11/2014. TISSUE DENSITY: There are scattered areas of fibroglandular density. FINDINGS: Mammogram: Interval development of smooth periareolar dermal thickeningasymmetrically pronounced superiorly. Effacing retroareolar fibronodulartissue without retroareolar mass, developing asymmetry, architecturaldistortion. No nipple inversion. No suspicious microcalcification. Physical Exam: No nipple retraction or discharge. No skin erythema, skinlesion, or definite skin dimpling. Sonogram: Targeted sonographic evaluation of the right periareolar breastdemonstrates subtle asymmetric dermal thickening along the superior marginof the areola. No associated hypervascularity on color Doppler ultrasound.No nipple retraction. No subdermal mass, fluid collection, or ductalectasia. No abnormal posterior acoustic shadowing. IMPRESSION: Interval development of asymmetric periareolar dermalthickening. No associated parenchymal mass, architectural distortion, ordeveloping asymmetry. Physical appearance of the right breast not overtlyworrisome for inflammatory breast cancer; however, symptoms did notresolve with antibiotic treatment, subtle asymmetric dermal thickeningpersists, and patient desires skin biopsy given first degree familyhistory of breast cancer. Skin biopsy should be considered. RECOMMENDATION: Biopsy should be consideredRight Findings, impression, and recommendation were discussed with the patientimmediately following exam completion. OVERALL IMAGING ASSESSMENT: ACR BI-RADS 4 - SUSPICIOUS FINDING(S) - BIOPSYSHOULD BE CONSIDERED. SUBCATEGORY: ACR BI-RADS 4A - LOW SUSPICION FOR MALIGNANCY (Between 3% to10% Likelihood Ordered By: SHRUTHI MODI Interpreted By: Abhi Macdonald, 09/03/2024 9:47 AM us Shruthi Modi MD ULTRASOUND Final Result * MG DIAG W LENY RT DIGI (09/03/2024 8:35 AM MATTRESS FILLER) Anatomical Region Laterality Modality Breast Right Mammography 09/03/2024 9:47 AM MATTRESS FILLER Impressions 09/03/2024 2:10 PM MATTRESS FILLER IMPRESSION: Interval development of asymmetric periareolar dermal thickening. No associated parenchymal mass, architectural distortion, or developing asymmetry. Physical appearance of the right breast not overtly worrisome for inflammatory breast cancer; however, symptoms did not resolve with antibiotic treatment, subtle asymmetric dermal thickening persists, and patient desires skin biopsy given first degree family history of breast cancer. Skin biopsy should be considered. RECOMMENDATION: Biopsy should be consideredRight Findings, impression, and recommendation were discussed with the patient immediately following exam completion. OVERALL IMAGING ASSESSMENT: ACR BI-RADS 4 - SUSPICIOUS FINDING(S) - BIOPSY SHOULD BE CONSIDERED. SUBCATEGORY: ACR BI-RADS 4A - LOW SUSPICION FOR MALIGNANCY (Between 3% to 10% Likelihood Ordered By: SHRUTHI MODI Interpreted By: Abhi Macdonald, 09/03/2024 9:47 AM Narrative 09/03/2024 2:10 PM [facility]ATTRESS [facility]ER [facility] [address] [place] [address] EXAMINATION: MG ORTIZ W LENY RT DIGI, US BREAST RT BIRAD LTD [id number] INDICATIONS: RIGHT BREAST PAIN, NIPPLE INVERSION AND HX OF DIMPLING OF SKIN ON RIGHT BREAST TECHNIQUE: Digital full field CC, ML, and MLO views and spot compression CC and MLO views of the right breast. 3-D Tomosynthesis technique was utilized. This study was read with the assistance of a computer-aided detection system. Targeted grayscale and color Doppler ultrasound imaging of the right breast. HISTORY: Patient presents with approximately 3 week history of a tender palpable mass behind the right nipple with associated nipple retraction, skin dimpling, and single episode of nonspontaneous milky white nipple discharge. Patient treated with an completed a course of antibiotics without resolution.Family history of breast cancer in sister. No personal history of breast cancer or prior breast biopsy. COMPARISON: 07/01/2024, 05/02/2022, 11/26/2021, 03/23/2021, 01/31/2021, and 07/11/2014. TISSUE DENSITY: There are scattered areas of fibroglandular density. FINDINGS: Mammogram: Interval development of smooth periareolar dermal thickening asymmetrically pronounced superiorly. Effacing retroareolar fibronodular tissue without retroareolar mass, developing asymmetry, architectural distortion. No nipple inversion. No suspicious microcalcification. Physical Exam: No nipple retraction or discharge. No skin erythema, skin lesion, or definite skin dimpling. Sonogram: Targeted sonographic evaluation of the right periareolar breast demonstrates subtle asymmetric dermal thickening along the superior margin of the areola. No associated hypervascularity on color Doppler ultrasound. No nipple retraction. No subdermal mass, fluid collection, or ductal ectasia. No abnormal posterior acoustic shadowing. us Shruthi Modi MD MAMMO Final Result * MRI LUMB SPINE WO CON (09/01/2024 4:19 PM MATTRESS FILLER) Anatomical Region Laterality Modality Spine Magnetic Resonan ce 09/01/2024 4:22 PM MATTRESS FILLER Impressions 09/01/2024 4:26 PM MATTRESS FILLER IMPRESSION: 1. Multilevel degenerative changes in the lower thoracic and lumbar spine, as detailed above. Referred By: RODOLFO CAMACHO Interpreted By: Landon Dong MD, 09/01/2024 4:22 PM Narrative 09/01/2024 4:26 PM MATTRESS FILLER [facility] [address] [place] [id number] INDICATION: Chronic mid and low back pain. EXAMINATION: MRI lumbar spine without contrast. TECHNIQUE: Multiplanar and multisequence MRI images of the lumbar spine were obtained without contrast. COMPARISON: MRI 08/31/2020. CT abdomen and pelvis 01/15/2024. FINDINGS: There are 5 lumbar type vertebral bodies designated as L1 through L5; using this numbering system, the conus medullaris terminates at L1 and L2 and appears unremarkable. Mild chronic appearing superior endplate compression deformities at T12 and L1, similar to CT abdomen/pelvis 01/15/2024. Otherwise the lumbar vertebral alignment, vertebral body heights, and facet alignment are maintained. Nonspecific heterogeneity of the marrow signal in the lumbar spine and partially imaged pelvis. Multilevel degenerative changes are evident in the lumbar spine with disc degeneration, endplate osteophytes, and facet hypertrophy noted. Disc desiccation evident at L4-L5. Small perineural/Tarlov cysts noted in the sacrum. Imaged portions of the soft tissues reveal no definite acute findings. T12-L1: Mild facet hypertrophy. No canal or foraminal narrowing. L1-L2: Mild disc bulge. Ligamentous and facet hypertrophy. No canal stenosis. Mild right foraminal narrowing. L2-L3: Mild disc bulge. Possible small right foraminal protrusion. Ligamentous and facet hypertrophy. No significant canal stenosis. Mild to moderate right and mild left foraminal narrowing. L3-L4: Tiny disc bulge with extension into the foramina. Endplate osteophytes. Ligamentous and facet hypertrophy. No significant canal stenosis. Mild to moderate right and mild left foraminal narrowing. L4-L5: Mild disc bulge with extension into the foramina. Tiny central protrusion with annular fissure. Ligamentous and facet hypertrophy. Endplate osteophytes. No significant canal stenosis. Moderate right and mild left foraminal narrowing. L5-S1: Mild disc bulge with extension into the foramina. Endplate osteophytes. Facet hypertrophy. No significant canal stenosis. Mild foraminal narrowing. Procedure Note Landon Dong MD - 09/01/[address] [address] INDICATION: Chronic mid and low back pain. EXAMINATION: MRI lumbar spine without contrast. TECHNIQUE: Multiplanar and multisequence MRI images of the lumbar spine were obtainedwithout contrast. COMPARISON: MRI 08/31/2020. CT abdomen and pelvis 01/15/2024. FINDINGS: There are 5 lumbar type vertebral bodies designated as L1 through L5;using this numbering system, the conus medullaris terminates at L1 and L2and appears unremarkable. Mild chronic appearing superior endplate compression deformities at T12and L1, similar to CT abdomen/pelvis 01/15/2024. Otherwise the lumbarvertebral alignment, vertebral body heights, and facet alignment aremaintained. Nonspecific heterogeneity of the marrow signal in the lumbarspine and partially imaged pelvis. Multilevel degenerative changes areevident in the lumbar spine with disc degeneration, endplate osteophytes,and facet hypertrophy noted. Disc desiccation evident at L4-L5. Smallperineural/Tarlov cysts noted in the sacrum. Imaged portions of the soft tissues reveal no definite acute findings. T12-L1: Mild facet hypertrophy. No canal or foraminal narrowing. L1-L2: Mild disc bulge. Ligamentous and facet hypertrophy. No canalstenosis. Mild right foraminal narrowing. L2-L3: Mild disc bulge. Possible small right foraminal protrusion.Ligamentous and facet hypertrophy. No significant canal stenosis. Mild tomoderate right and mild left foraminal narrowing. L3-L4: Tiny disc bulge with extension into the foramina. Endplateosteophytes. Ligamentous and facet hypertrophy. No significant canalstenosis. Mild to moderate right and mild left foraminal narrowing. L4-L5: Mild disc bulge with extension into the foramina. Tiny centralprotrusion with annular fissure. Ligamentous and facet hypertrophy.Endplate osteophytes. No significant canal stenosis. Moderate right andmild left foraminal narrowing. L5-S1: Mild disc bulge with extension into the foramina. Endplateosteophytes. Facet hypertrophy. No significant canal stenosis. Mildforaminal narrowing. IMPRESSION: 1. Multilevel degenerative changes in the lower thoracic and lumbar spine,as detailed above. Referred By: RODOLFO CAMACHO Interpreted By: Landon Dong MD, 09/01/2024 4:22 PM Rodolfo Camacho REGULATORY SCIENTIST MRI Final Result * URINE BACTERIA CULTURE (08/06/2024 11:29 AM MATTRESS FILLER) SPEC DESCRIPTION URINE CLEAN CATCH 08/06/2024 11:30 AM MATTRESS FILLER [facility] SPECIAL REQUESTS NO SPECIAL REQUEST 08/06/2024 11:30 AM MATTRESS FILLER [facility] CULTURE RESULT NO GROWTH (< OR = 1,000 CFU/ML) 08/08/2024 12:14 PM MATTRESS FILLER [facility] URINE SPECIMEN OBTAINED BY CLEAN CATCH PROCEDURE / Unknown 08/06/2024 11:29 AM MATTRESS FILLER 08/06/2024 9:07 PM MATTRESS FILLER Shruthi Modi MD MICROBIOLOGY - GENERAL ORDERABLE S Final Result Performing Organization Address [facility]/ZIP Co de Phone Number [facility] [address] [place] [address], [place] [phone] * (ABNORMAL) URINALYSIS AUTO DIP (08/06/2024) COLOR (U) CHRIS(A) YELLOW MG-JORDAN KRISTINA, AROLDO TRANSPARENCY CLOUDY(A) CLEAR MG-BECK MAN KRISTINA, AROLDO GLUCOSE (U) NEGATIVE NEGATIVE MG/DL MG-JORDAN KRISTINA, AROLDO BILIRUBIN (U) NEGATIVE NEGATIVE MG-AUBREE TMAN KRISTINA, AROLDO KETONES MG/DL (U) NEGATIVE NEGATIVE MG/DL MG-JORDAN KRISTINA, AROLDO SPECIFIC GRAVITY (U) 1.030 1.001 - 1.035 MG-JORDAN KRISTINA, AROLDO BLOOD (U) NEGATIVE NEGATIVE MG-JORDAN KRISTINA, AROLDO U PH 6.0 5.0 - 9.0 MG-JORDAN KRISTINA, AROLDO PROTEIN (U) 1+ (30)(A) NEGATIVE mg/dL MG-JORDAN KRISTINA, AROLDO UROBILINOGEN Normal 0.2 - 1.0 EU/dL = mg/dL MG-JORDAN KRISTINA, AROLDO NITRITES NEGATIVE NEGATIVE MG/DL MG-JORDAN KRISTINA, AROLDO LEUKOCYTES (U) NEGATIVE NEGATIVE MG-NGUYEN RTMAN KRISTINA, AROLDO URINE SPECIMEN OBTAINED BY CLEAN CATCH PROCEDURE / Unknown 08/06/2024 Shruthi Modi MD URINE ORDERABLES Final Result MG-JORDANKATHERINE ACEVEDO, AROLDO [address] [place] [address], [place] [phone] * Diagnostic PSG (59200, 16067) (07/25/2024 8:30 PM MATTRESS FILLER) Narrative [facility] - 07/25/2024 8:30 PM MATTRESS FILLER Yan Nino MD 08/03/2024 10:31 AM [place] [place] [facility] NOCTURNAL POLYSOMNOGRAM INTERPRETATION PATIENT NAME: Colin Boyd DATE OF : 1970 DATE OF SERVICE: 07/25/2024 PATIENT TYPE: CLI Ordering Phy Exam Description Kayley Carson M.D. PSG 4+PARAMETERS ATTENDING PHYSICIAN: Yan Nino MD REFERRING PHYSICIAN: Kayley Carson MD GENERAL INFORMATION Total Sleep Time: 380.0 minutes Sleep Efficiency Index: 87.6% Sleep Latency: 17.1 minutes REM Latency: 255.0 minutes Respiratory Disturbance Index: 6.2 per hour Apnea-Hypopnea Index: 1.7 per hour Procedure: The overnight polysomnogram was an attended study using a multiple channel system including simultaneous monitoring and recording of electroencephalography (EEG), right and left electrooculography (EOC), submental electromyography (EOG), submental electromyography (EMG), EKG, oral/nasal airflow, snoring, respiratory effort, oxygen saturations, right and left anterior tibialis electromyography, and body position. Sleep Architecture: The patient underwent sleep testing and slept for a total of 380.0 minutes during 433.6 minutes of recording time. Latency to persistent sleep was 17.1 minutes with sleep efficiency of 87.6% and a REM latency of 255.0 minutes. Patient spent 20.8% (79.0 minutes) in stage N1, 62.4% (237.0 minutes) in stage N2, 5.7% (21.5 minutes) in Stage N3, 11.2% (42.5 minutes) in REM. The patient slept 31.7% of the time in supine position, 0.0% of the time in prone position, 32.2% of the time in left-sided position, and 36.1% of the time in right-sided position. There were 75 arousals, of which 27 were associated with respiratory events and 48 were spontaneous. Arousal index was 11.8 per hour. Limb Activity Summary: The patient demonstrated a total of - leg movements during the night, of which - had the appearance of periodic limb movements. There were a total of - arousals associated with leg movements for an arousal index with leg movements of - per hour. The periodic limb movement index was - per hour. Cardiac Events Summary: The average heart rate was 68.2 beats per minute. No cardiac events were noted during this study. Respiratory Events Summary: There were a total of 11 apneas and hypopneas, of which 10 were apneas. Of those apneas, 2 were Obstructive, 7 were Central and 1 were Mixed. There were an additional 28 respiratory event-related arousals. The overall AHI was 1.7 per hour and the overall RDI was 6.2 per hour. During non-supine sleep, the overall AHI was 0.7 per hour. During supine sleep, the overall AHI was 4.0 per hour. NREM AHI was 0.5 per hour and REM AHI was 11.3 per hour. Oxygen Saturation Summary: Patient's average saturation was 96.2% during REM and 96.9% during NREM. The patient's lowest saturation was 87.0% during REM and 92.0% during NREM. Saturation was 90% or higher for 99.9% of the total sleep time. Saturation was less than or equal to 88% for 0.0% of the total sleep time or 0.1 minutes. Assessment/Plan: Mild REM-Related Obstructive Sleep Apnea. Although the overall AHI was not elevated to a clinically significant level, there was an increase in respiratory events during REM sleep which could be a potential source of sleep disruption. If patient is overly symptomatic, treatment maybe beneficial. This patient should maintain good sleep hygiene techniques, maintain a consistent sleep/wake schedule with adequate hours of sleep, and avoid hazardous activities when sleepy. The patient should be cautioned about factors that may potentially exacerbate snoring and sleep-related problems, such as SHAKE SPLITTER depressants, especially at bedtime. This document was electronically signed by: Yan Nino M.D. on 07/29/2024 12:05 PM. Kayley Carson MD SLEEP CENTER ORDERABLES Final Result [facility] [address] [place] [address], [place] [phone] * NM EXER NUC STRESS TEST 1DAY (07/23/2024 10:07 AM MATTRESS FILLER) Anatomical Region Laterality Modality Cardiac Nuclear Medicine 07/23/2024 9:13 AM MATTRESS FILLER Narrative 07/27/2024 3:10 PM MATTRESS FILLER Myocardial Perfusion Imaging Pat.Name: COLIN BOYDTTE Pat.ID: [id number] .Date: 07/23/2024 Refer.: Ly Exam Time: 9:13:00 AM Study Type:UZAIR NC HT MUSCLE IMAGE SPECT MULTI Height: 66 in Weight: 150 lb BSA: 1.77 m2 Age: 904/21/1970,54Y Sex: F Sonogrphr: Erin Lopez [facility] Pat. Stat.:Outpatient Reason for Study:Chest pain, Shortness of breath, Fatigue History / Clinical:Diabetes, Hypertension, GERD, Stroke/CVA/TIA, Ex-Smoker, Dyslipidemia, Family history CAD Procedures: Nuclear Stress Test with Lexiscan Race: B Surgery: Nuclear Stress Test, Echocardiogram ++++++++++++++++++++++++++++++++++++ SUMMARY: ++++++++++++++++++++++++++++++++++++ Stress conclusion: 1. Clinically negative. 2. Electrocardiographically negative stress test for ischemia. 3. Scintigraphic images to follow. Perfusion conclusion: 1. Good study quality. No motion correction was applied to images. No attenuation is noted. Prone imaging was performed. 2. Normal myocardial perfusion SPECT imaging. 3. Normal wall motion with an ejection fraction of 84%. 4. Stress test with myocardial perfusion imaging shows overall low risk for a cardiac event. ++++++++++++++++++++++++++++++++++++ FINDINGS: ++++++++++++++++++++++++++++++++++++ Protocol: Lexiscan 0.4mg was given as a rapid injection IV over a period of 10 seconds with the radiopharmaceutical injected at 20 seconds. The images were processed using the standard SPECT technique. A gated study was performed on the stress images. Impr: SPECT images demonstrate normal perfusion of normal intensity. Hrt size: The left ventricle is normal. WM: The LVEF is calculated to be 84%. Gated SPECT images reveal normal wall motion. Transient Ischemic Dilatation: The TID is 0.86. There is no evidence of Transient Ischemic Dilatation. ++++++++++++++++++++++++++++++++++++ STRESS: ++++++++++++++++++++++++++++++++++++ Baseline Vital Signs: Baseline ECG: Sinus rhythm, no ST changes HR: 70 bmp Rest BP: 138/88 Regadenoson with low level exercise Peak Dose: 0.4 mg Duration: 06:00 min:sec Stress Test Results: Max HR: 123 bmp Target HR: 165 bmp % Target: 75 % Max BP: 188/96 Max RPP: 25911 O2 sat: 100 % Symptoms and Complications: Reason for Stopping Test: Protocol completed Stress Induced Symptoms: Shortness of breath Complications: None ECG Findings: Sinus tachycardia, no ST changes <Electronic Signature> 07/27/2024 03:10 PM Cornell Bingham M.D. Procedure Note Cornell Bingham MD - 07/27/2024 Myocardial Perfusion Imaging Pat.Name: COLIN BOYD Pat.ID: [id number] St.Date: 07/23/2024 Refer.: Ly Exam Time: 9:13:00 AM Study Type:UZAIR PR HT MUSCLE IMAGE SPECT MULTI Height: 66 in Weight: 150 lb BSA: 1.77 m2 Age: 904/21/1970,54Y Sex: F Sonogrphr: ANITA Levine Pat. Stat.:Outpatient Reason for Study:Chest pain, Shortness of breath, Fatigue History / Clinical:Diabetes, Hypertension, GERD, Stroke/CVA/TIA, Ex-Smoker, Dyslipidemia, Family history CAD Procedures: Nuclear Stress Test with Lexiscan Race: B Surgery: Nuclear Stress Test, Echocardiogram ++++++++++++++++++++++++++++++++++++ SUMMARY: ++++++++++++++++++++++++++++++++++++ Stress conclusion: 1. Clinically negative. 2. Electrocardiographically negative stress test for ischemia. 3. Scintigraphic images to follow. Perfusion conclusion: 1. Good study quality. No motion correction was applied to images. No attenuation is noted. Prone imaging was performed. 2. Normal myocardial perfusion SPECT imaging. 3. Normal wall motion with an ejection fraction of 84%. 4. Stress test with myocardial perfusion imaging shows overall low risk for a cardiac event. ++++++++++++++++++++++++++++++++++++ FINDINGS: ++++++++++++++++++++++++++++++++++++ Protocol: Lexiscan 0.4mg was given as a rapid injection IV over a period of 10 seconds with the radiopharmaceutical injected at 20 seconds. The images were processed using the standard SPECT technique. A gated study was performed on the stress images. Impr: SPECT images demonstrate normal perfusion of normal intensity. Hrt size: The left ventricle is normal. WM: The LVEF is calculated to be 84%. Gated SPECT images reveal normal wall motion. Transient Ischemic Dilatation: The TID is 0.86. There is no evidence of Transient Ischemic Dilatation. ++++++++++++++++++++++++++++++++++++ STRESS: ++++++++++++++++++++++++++++++++++++ Baseline Vital Signs: Baseline ECG: Sinus rhythm, no ST changes HR: 70 bmp Rest BP: 138/88 Regadenoson with low level exercise Peak Dose: 0.4 mg Duration: 06:00 min:sec Stress Test Results: Max HR: 123 bmp Target HR: 165 bmp % Target: 75 % Max BP: 188/96 Max RPP: 75179 O2 sat: 100 % Symptoms and Complications: Reason for Stopping Test: Protocol completed Stress Induced Symptoms: Shortness of breath Complications: None ECG Findings: Sinus tachycardia, no ST changes <Electronic Signature> 07/27/2024 03:10 PM Cornell Bingham M.D. Cornell Bingham MD NUC MED Final Resul t * MG DIAG W LENY BILAT DIGI (07/01/2024 2:30 PM MATTRESS FILLER) Anatomical Region Laterality Modality Breast Bilateral Mammography 07/01/2024 2:37 PM MATTRESS FILLER Impressions 07/01/2024 3:21 PM MATTRESS FILLER =====IMPRESSION:===== Stable mammographic appearance with no new findings to suggest malignancy in either breast. ASSESSMENT: ACR BI-RADS 1 - NEGATIVE Recommendation: 1: Routine Screening Bilateral COMMENTS: Ordered By: SHRUTHI MODI Interpreted By: Samantha Rainey, 07/01/2024 2:37 PM Narrative 07/01/2024 3:21 PM MATTRESS FILLER [facility] [address] [place] [address] EXAMINATION: Digital bilateral diagnostic mammogram with 3-D tomography. Right breast ultrasound [id number] EXAM DATE/TIME: 07/01/2024 2:10 PM REASON FOR EXAM: lump in right breast Breast carcinoma in sister at undisclosed age. COMPARISON: Right breast 11/26/2021. 05/02/2022. 01/31/2021 TECHNIQUE: Digital diagnostic mammography of both breasts was performed in addition to 3-D Tomosynthesis technique. This study was read with the assistance of a computer-aided detection system.. Focused right breast ultrasound. TISSUE DENSITY: There are scattered areas of fibroglandular density. Findings: Marker placed at level of palpable abnormality at the approximate 7:00 position of the right retroareolar region. No underlying abnormality on mammography or ultrasound.. No new focal asymmetry, dominant mass lesion, area of skin thickening, or cluster of suspicious appearing calcifications in either breast to suggest malignancy. us Shruthi Modi MD MAMMO Final Result * CT CHEST WO CON (08/25/2023 1:47 PM MATTRESS FILLER) Anatomical Region Laterality Modality Chest Computed Tomogra phy 08/31/2023 9:33 AM MATTRESS FILLER Impressions 08/31/2023 9:39 AM MATTRESS FILLER Impression: 1. Mild centrilobular emphysematous changes of both lungs. 2. An ill-defined 3 mm nodular region is seen in the right upper lobe, unchanged from the previous study from one year prior. No definite new or enlarging pulmonary nodule is seen. No specific follow-up imaging is recommended. Referred By: KAYLEY CARSON Interpreted By: Ramesh Wong MD, 08/31/2023 9:33 AM Narrative 08/31/2023 9:39 AM MATTRESS FILLER Examination: CT chest without IV contrast. Clinical Information: Follow-up lung nodules seen on prior CT thoracic spine. Comparison: CT thoracic spine 08/28/2022. CT chest 04/13/2021. Technique: IV contrast: None Oral contrast: None. Technical comments: Standard technique. Dose reduction: This CT exam was performed using one or more of the following dose reduction techniques: Automated exposure control, adjustment of the mA and/or kV according to patient size, and/or use of iterative reconstruction technique. Findings: MEDIASTINUM Support tubes and lines: None. Base of neck/thyroid: Negative. Heart: Normal in size. No pericardial effusion. Lymph nodes: No supraclavicular, axillary, internal mammary, mediastinal, or hilar adenopathy. VASCULATURE The unenhanced thoracic aorta and pulmonary arteries are normal in caliber. LUNGS AND PLEURA Lungs: Mild centrilobular emphysematous changes of both lungs. An ill-defined nodular region is seen in the right upper lobe (series 5 image 46), measuring approximately 3 mm and unchanged from the previous study from one year prior. No definite new or enlarging pulmonary nodule is seen. Pleura: No pleural effusion, thickening, or calcification. UPPER ABDOMEN Unremarkable. BONES/SOFT TISSUES No significant lesion. Procedure Note Ramesh Wong MD - 08/31/2023 Examination: CT chest without IV contrast. Clinical Information: Follow-up lung nodules seen on prior CT thoracicspine. Comparison: CT thoracic spine 08/28/2022. CT chest 04/13/2021. Technique: IV contrast: None Oral contrast: None. Technical comments: Standard technique. Dose reduction: This CT exam was performed using one or more of thefollowing dose reduction techniques: Automated exposure control,adjustment of the mA and/or kV according to patient size, and/or use ofiterative reconstruction technique. Findings: MEDIASTINUM Support tubes and lines: None. Base of neck/thyroid: Negative. Heart: Normal in size. No pericardial effusion. Lymph nodes: No supraclavicular, axillary, internal mammary, mediastinal,or hilar adenopathy. VASCULATURE The unenhanced thoracic aorta and pulmonary arteries are normal incaliber. LUNGS AND PLEURA Lungs: Mild centrilobular emphysematous changes of both lungs. Anill-defined nodular region is seen in the right upper lobe (series 5 [id number]), measuring approximately 3 mm and unchanged from the previous studyfrom one year prior. No definite new or enlarging pulmonary nodule isseen. Pleura: No pleural effusion, thickening, or calcification. UPPER ABDOMEN Unremarkable. BONES/SOFT TISSUES No significant lesion. Impression: 1. Mild centrilobular emphysematous changes of both lungs. 2. An ill-defined 3 mm nodular region is seen in the right upper lobe,unchanged from the previous study from one year prior. No definite new orenlarging pulmonary nodule is seen. No specific follow-up imaging isrecommended. Referred By: KAYLEY CARSON Interpreted By: Ramesh Wong MD, 08/31/2023 9:33 AM us Kayley Carson MD CT Final Result * DIABETIC RETINOPATHY EXAM (NEGATIVE)(SCAN) (03/25/2023) us [facility] Scanned SCANNING Final Resu lt [facility] * HEPATITIS C ANTIBODY (05/06/2022 11:46 AM CDT) HEPATITIS C AB NON-REACTI VE NON-REACTI VE 05/06/2022 2:58 PM CDT [facility] 05/06/2022 11:4 6 AM CDT Jacques Go MD LABORATORY Final Result [facility] [address] [place] [address], from Last 3 Months or Most Recently Relevant to Health Maintenance Insurance Advance Directives Documents on File Type Date Recorded Patient Bag Filler Expl anation Legal Documents 09/18/2022 10:57 AM Complet ed Mobile Home Lot Utility Worker Request for [employer] Legal Documents 07/26/2022 2:03 PM COMPLET ED ATTNY REQ Legal Documents 04/10/2022 8:59 AM COMPLET ED BILLING REQUEST FOR [employer] Legal Documents 09/15/2020 10:46 AM RECVDC OMPLETED ATTY REQUEST FOR [employer] DOS [id number] TO [id number] * Full Code (Latest Code Status on File) Date Activated Date Inactivated Comments 08/28/2022 6:23 PM 09/01/2022 3:56 PM * Full Code Date Activated Date Inactivated Comments 07/08/2022 11:58 PM 07/10/2022 3:14 PM * Full Code Date Activated Date Inactivated Comments 07/08/2022 12:24 PM 07/08/2022 11:58 PM * Full Code Date Activated Date Inactivated Comments 06/23/2022 2:44 PM 06/25/2022 8:13 PM * Full Code Date Activated Date Inactivated Comments 12/07/2021 12:25 AM 12/09/2021 1:32 PM Care Teams Wool Grader Relationship Specialty Start Date End Date hSruthi Modi MD [address] [place] [address] PCP - General FAMILY PRACTICE 10/18/21 Cornell Bingham MD [facility] [address] [place], [place] [id number] [place] Pin Drafting Machine Tender CARDIOVASCULAR DISEASE 03/01/19 David Beltran DO [address] [place] [address] [address] [place] [address] Consulting Physician INTERNAL MEDICINE 07/04/22 Xiomara Hernandez NP [address] [place] [address], [address] [place] [address] NURSE PRACTITIONER GERONTOLOGY 07/04/22 Kayley Carson MD [address] [address] Consulting Physician Internal Medicine Pulmonary Disease 07/04/22 Dmitry Laguna MD [address] [address] Consulting Physician ENDOCRINOLOGY 07/04/22
--- OUTSIDE RECORDS SUMMARY | 2024-09-30 16:29 | XMS_ITS | Encounter Summary ---
Author Organization [facility] / [facility] Address Critical access hospital[address] [place] [address] Care Team Providers Care Vacuum Metalizing Supervisor Name Role Phone Cornell Bingham MD Unavailable [phone] Shruthi Modi MD Primary Care Provider [phone] David Beltran DO Unavailable [phone] Xiomara Hernandez NP Unavailable [phone] Domingo Elizabeth MD Unavailable [phone] Dmitry Laguna MD Unavailable Unavailable Encounter Details Date Type Department Care Team (Late st Contact Info) Description 06/15/2024 PapayaMobilet Message Enc [facility] Medical Group Family [facility] [address] [place] [address] Shruthi Modi MD [facility] [place] [address] abnormal thyroid ultrasound Social History Tobacco Use Types Packs/Day Years [...] declined 09/01/2022 How often do you attend congregation or cheondoism serv ices? Patient declined 09/01/2022 Do you belong to any clubs o r organizations such as congregation groups, unions, fraternal or athletic groups, or [...] Recorded Patient Health Questionnaire-2 Score 4 06/17/2024 [facility] [place] of Occupat ional Health - Occupational Stress [...] Sex Assigned at Female 09/01/2024 3:25 PM MEDICAL LAB TECH INSTRUCTOR Legal Sex Female 10:56 PM CDT Gender Identity Female 09/04/2021 12:32 PM MEDICAL LAB TECH INSTRUCTOR Sexual Orientation Straight 09/04/2021 12 :32 PM MEDICAL LAB TECH INSTRUCTOR documented as of this encounter Functional Status * RETIRED Are you deaf or do you have serious difficulty hearing Answer Date of Assessment Author Status No 08/29/2022 3:53 PM MEDICAL LAB TECH INSTRUCTOR Activ e * RETIRED Are you blind or do you have serious difficulty seeing, even when wearing glasses? Answer Date of Assessment Author Status No 08/29/2022 3:53 PM MEDICAL LAB TECH INSTRUCTOR Activ e * Do you have serious difficulty walking or climbing stairs? Answer Date of Assessment Author Status No 08/29/2022 3:53 PM MEDICAL LAB TECH INSTRUCTOR Kathy Ellis RN Active * Do you have difficulty dressing or bathing? Answer Date of Assessment Author Status No 08/29/2022 3:53 PM MEDICAL LAB TECH INSTRUCTOR Kathy Ellis RN Active * Because of a physical, mental, or emotional condition, do you have difficulty doing errands alone such as visiting a doctor's office or shopping? Answer Date of Assessment Author Status No 08/29/2022 3:53 PM MEDICAL LAB TECH INSTRUCTOR Kathy Ellis RN Active documented as of this encounter Mental Status * Because of a physical, mental, or emotional condition, do you have serious difficulty concentrating, remembering, or making decisions? Answer Entry Date Author Status No 08/29/2022 3:53 PM Kathy Carballo RN Active documented in this encounter Progress Notes * Shruthi Modi MD - 06/17/2024 6:46 AM CDT Noted. Will see pt at her appt today. Thanks! ~Dr Rodriguez documented in this encounter Plan of Treatment Upcoming Encounters Date Type Department Care Team (Late st Contact Info) Description 10/01/2024 8:45 AM MEDICAL LAB TECH INSTRUCTOR Appointment [facility] Outpatient [place] [address] [place] [address] [place] Devries, JOHN [address] [place] [address]. [place] [address] Terese Braga OTR 1 [place] [address] 11/04/2024 9:00 AM CDT Office Visit [facility] Medical Group Multispecialty Care - [facility] 3 [facility] [address] [place] [address] Domingo Elizabeth MD 3 [facility] MAR [address] [place] [address] 11/09/2024 1:15 PM CDT Office Visit [facility] THREE [facility], MAR [address] [place] [address] Radha Valente FNP 3 [facility] [address] [place] [address] documented as of this encounter Goals Goal Patient Goal Type Associated Problems Recent Progress Patient-Stated? Author Health - patient able to perform ADLs independently Lifestyle Scott Swift, RN Medications - able to self-administer medications Lifestyle No Scott Dos Santos, RN documented as of this encounter Visit Diagnoses Not on filedocumented in this encounter Additional Health Concerns Assessment Noted Time PHQ-9 Depression Total Score: 18 024 10:17 AM CDT documented as of this encounter Care Teams Vacuum Metalizing Supervisor Relationship Specialty Start Date End Date Shruthi Modi MD [facility]6 [place] [address] PCP - General FAMILY PRACTICE 10/18/21 Cornell Bingham MD Three [facility]. MAR [address] [place] [address] [employer] Manager People CARDIOVASCULAR DISEASE 03/01/19 David Beltran DO [address] [place] [address] [address] [place] [phone] Consulting Physician INTERNAL MEDICINE 07/04/22 Xiomara Hernandez, JOHN [address] [place] [address], [address] [place] [address] NURSE PRACTITIONER GERONTOLOGY 07/04/22 Domingo Elizabeth MD 3 [facility] [address] [place] [address] Consulting Physician Internal Medicine Pulmonary Disease 07/04/22 Dmitry Laguna MD [address] [address] Consulting Physician ENDOCRINOLOGY 07/04/22 documented as of this encounter
--- OUTSIDE RECORDS SUMMARY | 2024-09-30 16:29 | XMS_ITS | Encounter Summary ---
Author Organization [facility] Address [address] [place] [address] Care Team Providers Care Financial Systems Analyst Name Role Phone Cornell Bingham MD Unavailable [phone] Shruthi Modi MD Primary Care Provider [phone] David Beltran DO Unavailable [phone] Xiomara Hernandez NP Unavailable [phone] Domingo Elizabeth MD Unavailable [phone] Dmitry Laguna MD Unavailable Unavailable Encounter Details Date Type Department Care Team (Late st Contact Info) Description 09/22/2023 MyCNetworkt Message Enc [facility] Medical Group Multispecialty Care - [facility] 3 [facility] [address] [place] [phone] Domingo Elizabeth MD 3 [facility] MAR [address] [place], [place] [id number] CPAP Social History Tobacco Use Types Packs/Day [...] declined 09/01/2022 How often do you attend uatsdin or baptist serv ices? Patient declined 09/01/2022 Do you belong to any clubs o r organizations such as uatsdin groups, unions, fraternal or athletic groups, or [...] Recorded Patient Health Questionnaire-2 Score 0 08/04/2023 [facility] [place] of Occupat ional Health - Occupational Stress [...] place to sleep or slept in a senior living (including now)? No 09/01/2022 Comments No Sex and Gender Information Value Date Recorded Sex Assigned at Female 09/01/2024 3:25 PM DULITE MACHINE BLUER Legal Sex Female 10:56 PM CDT Gender Identity Female 09/04/2021 12:32 PM DULITE MACHINE BLUER Sexual Orientation Straight 09/04/2021 12 :32 PM DULITE MACHINE BLUER documented as of this encounter Functional Status * RETIRED Are you deaf or do you have serious difficulty hearing Answer Date of Assessment Author Status No 08/29/2022 3:53 PM DULITE MACHINE BLUER Activ e * RETIRED Are you blind or do you have serious difficulty seeing, even when wearing glasses? Answer Date of Assessment Author Status No 08/29/2022 3:53 PM DULITE MACHINE BLUER Activ e * Do you have serious difficulty walking or climbing stairs? Answer Date of Assessment Author Status No 08/29/2022 3:53 PM DULITE MACHINE BLUER Kathy Ellis RN Active * Do you have difficulty dressing or bathing? Answer Date of Assessment Author Status No 08/29/2022 3:53 PM DULITE MACHINE BLUER Kathy Ellis RN Active * Because of a physical, mental, or emotional condition, do you have difficulty doing errands alone such as visiting a doctor's office or shopping? Answer Date of Assessment Author Status No 08/29/2022 3:53 PM DULITE MACHINE BLUER Kathy Ellis RN Active documented as of this encounter Mental Status * Because of a physical, mental, or emotional condition, do you have serious difficulty concentrating, remembering, or making decisions? Answer Entry Date Author Status No 08/29/2022 3:53 PM DULITE MACHINE BLUER Kathy Ellis RN Active documented in this encounter Plan of Treatment Upcoming Encounters Date Type Department Care Team (Late st Contact Info) Description 10/01/2024 8:45 AM DULITE MACHINE BLUER Appointment [facility] Outpatient [place] [address] [place] [address] [place] Devries NP [address] [place] [address]. [place] [address] Terese Braga, MAGOR 1 [place] [address] 11/04/2024 9:00 AM CDT Office Visit [facility] Medical Group Multispecialty Care - [facility] 3 [facility] [address] [place] [address] Domingo Elizabeth MD 3 [facility] MAR [address] [place], [place] [address] 11/09/2024 1:15 PM CDT Office Visit [facility] THREE [facility], MAR [address] [place], [place] [address] Radha Valente FNP 3 [facility] MAR [address] [place], [place] [address] documented as of this encounter Goals Goal [...] Rule Out 09/25/2023 09/25/2023 09/25/2023 2:02 PM DULITE MACHINE BLUER COVID-19 Rule Out 05/26/2024 05/26/2024 05/26/2024 1:58 PM CDT Assessment Noted Time PHQ-9 Depression Total Score: 24 023 9:34 AM CDT documented as of this encounter Care Teams Financial Systems Analyst Relationship Specialty Start Date End Date Shruthi Modi MD [facility]6 [place] [address] PCP - General FAMILY PRACTICE 10/18/21 Cornell Bingham MD Three [facility]. [facility] [address] [place] [address] [place] Geothermal Operating Engineer CARDIOVASCULAR DISEASE 03/01/19 David Beltran DO [address] [place] [phone] Consulting Physician INTERNAL MEDICINE 07/04/22 Xiomara Hernandez NP [address] [place] [address], [address] [place] [address] NURSE PRACTITIONER GERONTOLOGY 07/04/22 Domingo Elizabeth MD 3 [facility] [address] [place] [address] Consulting Physician Internal Medicine Pulmonary Disease 07/04/22 Dmitry Laguna MD 3 [facility] [address] [place] [address] Consulting Physician ENDOCRINOLOGY 07/04/22 documented as of this encounter
--- OUTSIDE RECORDS SUMMARY | 2024-09-30 16:30 | XMS_ITS | Encounter Summary ---
Author Organization [facility] Facility Care Team Providers Care Handy Worker Name Role Phone Paddy Riley MD, Fabrizio Unavailable [phone] Chris Mahmood DO Primary Care Provider + No, Physician Primary Care Provider [phone] Shruthi Modi MD Primary Care Provider mDitry Laguna MD Unavailable [phone] Encounter Details Date Type Department Care Team (Latest Contact Info) Description 11/26/2016 Orders Only [facility]INCON[facility] ProviderRay MD [address] [place] [address] Social History Tobacco Use Types Packs/Day Years Used Date Smoking Tobacco: Never Assessed Comments Unknown Sex and Gender Information Value Date Recorded Sex Assigned at Not on file Legal Sex Female 6:55 AM BRAILLE OPERATOR Gender Identity Female 07/23/2020 8:34 PM BRAILLE OPERATOR Sexual Orientation Straight 07/23/2020 8: 34 PM BRAILLE OPERATOR documented as of this encounter Plan [...] documented as of this encounter Care Teams Handy Worker Relationship Specialty Start Date End Date Chris Mahmood DO [address] [place] [address] PCP - General Family Medicine 07/05/21 10/04/21 No, Physician PCP - General 10/15/21 10/23/21 Shruthi Modi MD [address] [facility] [place] [address] PCP - General Family Practice 10/24/21 Fabrizio Thomason Jr., MD Medical Oncologist/Hematologis t Medical Oncology 03/02/21 Dmitry Laguna MD [address] [facility] [place] [address] Referring Physician Endocrinology Diabetes & Metabolism 05/21/23 documented as of this encounter
--- OUTSIDE RECORDS SUMMARY | 2024-09-30 16:30 | XMS_ITS | Encounter Summary ---
Author Organization [facility] Address [address] [place] [address] Care Team Providers Care Dye Stand Loader Name Role Phone Cornell Bingham MD Unavailable [phone] Chris Mahmood DO Primary Care Provider [phone] Fabrizio Thomason MD Unavailable [phone] Shruthi Modi MD Primary Care Provider [phone] David Beltran DO Unavailable [phone] Xiomara Hernandez NP Unavailable [phone] Domingo Elizabeth MD Unavailable [phone] Dmitry Laguna MD Unavailable Unavailable Encounter Details Date Type Department Care Team (Latest Contact Info) Description 09/04/2021 ZenSuite Message Enc [employer] DEPARTMENT [address] [place] [address] Fabrizio Thomason MD [address] [address] Follow-up visit cancellation Social History Tobacco Use Types Packs/Day Years Used Date Smoking Tobacco: Every Day Cigarettes 0.5 12 Smokeless Tobacco: Never Comments:Have quit before fo [...] 3, please move on to questions 3-9 2 08/01/2021 Comments No Sex and Gender Information Value Date Recorded Sex Assigned at Female 09/01/2024 3:25 PM PLUMBING ENGINEERING DRAFTSPERSON Legal Sex Female 10:56 PM CDT Gender Identity Female 09/04/2021 12:32 PM PLUMBING ENGINEERING DRAFTSPERSON Sexual Orientation Straight 09/04/2021 12 :32 PM PLUMBING ENGINEERING DRAFTSPERSON COVID-19 Exposure Response Date Recorded In the last month, have you been in contact with someone who was confirmed or suspected to have Coronavirus / COVID-19? No / Unsure 09/04/2021 10:52 AM PLUMBING ENGINEERING DRAFTSPERSON documented as of this encounter Functional Status * RETIRED Are you deaf or do you have serious difficulty hearing Answer Date of Assessment Author Status No 07/09/2020 8:09 AM PLUMBING ENGINEERING DRAFTSPERSON Activ e * RETIRED Are you blind or do you have serious difficulty seeing, even when wearing glasses? Answer Date of Assessment Author Status No 07/09/2020 8:09 AM PLUMBING ENGINEERING DRAFTSPERSON Activ e * Do you have serious [...] st Contact Info) Description 10/01/2024 8:45 AM PLUMBING ENGINEERING DRAFTSPERSON Appointment [facility] Outpatient Therapy THREE [place] [address] [place] Devries NP [address] [facility] [place] [address] Terese Braga OTR 1 [place] [address] 11/04/2024 9:00 AM CDT Office Visit [facility] Medical Group Multispecialty Care - [facility] 3 [facility] [address] [place] [address] Domingo Elizabeth MD 3 [facility] MAR [address] [place] [address] 11/09/2024 1:15 PM CDT Office Visit [facility] THREE [facility], MAR [address] [place] [address] Radha Valente FNP 3 [facility] MAR [address] [place] [address] documented as of this encounter Visit Diagnoses Not on filedocumented in this encounter Additional Health Concerns Infection Onset Date Last Indicated Resolved Time COVID-19 Rule Out 04/28/2022 04/28/2022 04/28/2022 1:35 PM CDT COVID-19 Rule Out 04/28/2022 04/28/2022 04/28/2022 7:46 PM CDT COVID-19 Rule Out 05/17/2022 05/17/2022 05/18/2022 6:00 PM CDT COVID-19 Rule Out 09/25/2023 09/25/2023 09/25/2023 2:02 PM PLUMBING ENGINEERING DRAFTSPERSON COVID-19 Rule Out 05/26/2024 05/26/2024 05/26/2024 1:58 PM CDT Assessment Noted Time PHQ-9 Depression Total Score: 2 08/01/20 21 2:26 PM PLUMBING ENGINEERING DRAFTSPERSON documented as of this encounter Care Teams Dye Stand Loader Relationship Specialty Start Date End Date Chris Mahmood DO [address] [place] [address] PCP - General FAMILY PRACTICE 07/06/20 10/17/21 Shruthi Modi MD [address] [place] [address] PCP - General FAMILY PRACTICE 10/18/21 Cornell Bingham MD Three [facility]. MAR [address] [place] [address] [place] Rubber Extrusion Machine Operator CARDIOVASCULAR DISEASE 03/01/19 Fabrizio Thomason MD [address] [address] Referring Physician MEDICAL ONCOLOGY 12/06/20 07/03/22 David Beltran DO [address] [facility] [address] [place] [address] Consulting Physician INTERNAL MEDICINE 07/04/22 Xiomara Hernandez CHIEF BUSINESS DEVELOPMENT OFFICER [address] [place] [address], [address] [place] [address] NURSE PRACTITIONER GERONTOLOGY 07/04/22 Domingo Elizabeth MD [address] [facility] [address] [place] [address] Consulting Physician Internal Medicine Pulmonary Disease 07/04/22 Dmitry Laguna MD [address] [address] Consulting Physician ENDOCRINOLOGY 07/04/22 documented as of this encounter
--- OUTSIDE RECORDS SUMMARY | 2024-09-30 16:30 | XMS_ITS | Encounter Summary ---
Author Organization [facility] Address [facility] [place] [address] Care Team Providers Care Senior Manager Asset Protection Name Role Phone Cornell Bingham MD Unavailable [phone] Shruthi Modi MD Primary Care Provider [phone] David Beltran DO Unavailable [phone] Xiomara Hernandez NP Unavailable [phone] Domingo Elizabeth MD Unavailable [phone] Dmitry Laguna MD Unavailable Unavailable Encounter Details Date Type Department Care Team (Late st Contact Info) Description 08/19/2024 Tre[facility] Labst Message Enc [facility] Medical Group [facility] [address] [place] [address] Shruthi Modi MD [facility] [place] [address] Nipple Social History Tobacco Use Types Packs/Day Years [...] declined 09/01/2022 How often do you attend synagogue or yazidi serv ices? Patient declined 09/01/2022 Do you belong to any clubs o r organizations such as synagogue groups, unions, fraternal or athletic groups, or [...] Date Recorded Patient Health Questionnaire-2 Score 2 08/06/2024 [facility] [place] of Occupat ional Health - Occupational Stress [...] place to sleep or slept in a prison (including now)? No 09/01/2022 Comments No Sex and Gender Information Value Date Recorded Sex Assigned at Female 09/01/2024 3:25 PM DIRECTOR PRODUCT SAFETY Legal Sex Female 10:56 PM CDT Gender Identity Female 09/04/2021 12:32 PM DIRECTOR PRODUCT SAFETY Sexual Orientation Straight 09/04/2021 12 :32 PM DIRECTOR PRODUCT SAFETY documented as of this encounter Functional Status * RETIRED Are you deaf or do you have serious difficulty hearing Answer Date of Assessment Author Status No 08/29/2022 3:53 PM DIRECTOR PRODUCT SAFETY Activ e * RETIRED Are you blind or do you have serious difficulty seeing, even when wearing glasses? Answer Date of Assessment Author Status No 08/29/2022 3:53 PM DIRECTOR PRODUCT SAFETY Activ e * Do you have serious difficulty walking or climbing stairs? Answer Date of Assessment Author Status No 08/29/2022 3:53 PM DIRECTOR PRODUCT SAFETY Kathy Ellis RN Active * Do you have difficulty dressing or bathing? Answer Date of Assessment Author Status No 08/29/2022 3:53 PM DIRECTOR PRODUCT SAFETY Kathy Ellis RN Active * Because of a physical, mental, or emotional condition, do you have difficulty doing errands alone such as visiting a doctor's office or shopping? Answer Date of Assessment Author Status No 08/29/2022 3:53 PM DIRECTOR PRODUCT SAFETY Kathy Ellis RN Active documented as of this encounter Mental Status * Because of a physical, mental, or emotional condition, do you have serious difficulty concentrating, remembering, or making decisions? Answer Entry Date Author Status No 08/29/2022 3:53 PM DIRECTOR PRODUCT SAFETY Kathy Ellis RN Active documented in this encounter Plan of Treatment Upcoming Encounters Date Type Department Care Team (Late st Contact Info) Description 10/01/2024 8:45 AM DIRECTOR PRODUCT SAFETY Appointment [facility] [place] [address] Orlando Devries NP [address] [place] [address]. [place] [address] Terese Braga, OTR 1 [place], [place] [address] 11/04/2024 9:00 AM CDT Office Visit [facility] Medical Group Multispecialty Care - [facility] [address] [facility] [place] [phone] Domingo Elizabeth MD [address] [facility] [address] [place], [place] [address] 11/09/2024 1:15 PM CDT Office Visit [facility] THREE [facility], [address] [place], [place] [address] Radha Valente FNP 3 [facility] [address] [place], [place] [id number] documented as of this encounter Goals Goal Patient Goal Type Associated Problems Recent Progress Patient-Stated? Author Health - patient able to perform ADLs independently Lifestyle Scott Swift, RN Medications - able to self-administer medications Lifestyle No Scott Dos Santos, DEWEY documented as of this encounter Visit Diagnoses Not on filedocumented in this encounter Additional Health Concerns Assessment Noted Time PHQ-9 Depression Total Score: 12 024 11:01 AM DIRECTOR PRODUCT SAFETY documented as of this encounter Care Teams Senior Manager Asset Protection Relationship Specialty Start Date End Date Shruthi Modi MD [facility] [place] [address] PCP - General FAMILY PRACTICE 10/18/21 Cornell Bingham MD Three [facility]. [facility] [address] [place] [address] [place] Spinning Lathe Operator Automatic CARDIOVASCULAR DISEASE 03/01/19 David Beltran DO [address] [place] [address] [address] [place] [phone] Consulting Physician INTERNAL MEDICINE 07/04/22 Xiomara Hernandez NP [address] [place] [address], [address] [place] [address] NURSE PRACTITIONER GERONTOLOGY 07/04/22 Domingo Elizabeth MD 3 [facility] [address] [place] [address] Consulting Physician Internal Medicine Pulmonary Disease 07/04/22 Dmitry Laguna MD 3 [facility] [address] [place] [address] Consulting Physician ENDOCRINOLOGY 07/04/22 documented as of this encounter
--- OUTSIDE RECORDS SUMMARY | 2024-09-30 16:30 | XMS_ITS | Encounter Summary ---
Author Organization [facility] Care Team Providers Care Community Relations Assistant Name Role Phone Paddy Riley MD, Fabrizio Unavailable [phone] Chris Mahmood DO Primary Care Provider + No, Physician Primary Care Provider [phone] Shruthi Modi MD Primary Care Provider Dmitry Laguna MD Unavailable [phone] Encounter Details Date Type Department Care Team (Latest Contact Info) Description 11/25/2016 Orders Only [facility] CLINCONV ProviderRay MD [address] [place] [address] Social History Tobacco Use Types Packs/Day Years Used Date Smoking Tobacco: Never Assessed Comments Unknown Sex and Gender Information Value Date Recorded Sex Assigned at Not on file Legal Sex Female 6:55 AM SCREEN PRINTER Gender Identity Female 07/23/2020 8:34 PM SCREEN PRINTER Sexual Orientation Straight 07/23/2020 8: 34 PM SCREEN PRINTER documented as of this encounter Plan of [...] documented as of this encounter Care Teams Community Relations Assistant Relationship Specialty Start Date End Date Chris Mahmood DO [address] [place] [address] PCP - General Family Medicine 07/05/21 10/04/21 No, Physician PCP - General 10/15/21 10/23/21 Shruthi Modi MD [address] [place] [address] PCP - General Family Practice 10/24/21 Fabrizio Thomason Jr., MD Medical Oncologist/Hematologis t Medical Oncology 03/02/21 Dmitry Laguna MD [address] [facility] [place] [address] Referring Physician Endocrinology Diabetes & Metabolism 05/21/23 documented as of this encounter
--- OUTSIDE RECORDS SUMMARY | 2024-09-30 16:30 | XMS_ITS | Encounter Summary ---
Author Organization [facility] Address [address] [place] [address] Care Team Providers Care Pull Up Hand Name Role Phone Cornell Bingham MD Unavailable [phone] Chris Mahmood DO Primary Care Provider [phone] Fabrizio Thomason MD Unavailable [phone] Shruthi Modi MD Primary Care Provider [phone] David Beltran DO Unavailable [phone] Xiomara Hernandez NP Unavailable [phone] Domigno Elizabeth MD Unavailable [phone] Dmitry Laguna MD Unavailable Unavailable Encounter Details Date Type Department Care Team (Late st Contact Info) Description 04/10/2021 Wrike Message Enc [facility] THREE [facility], [address] [address] Cornell Bingham MD Three [facility]. [place] [address] [place] [address] Other Social History Tobacco Use Types Packs/Day Years [...] Sex Assigned at Female 09/01/2024 3:25 PM OFFICE TECHNOLOGY PROFESSOR Legal Sex Female 10:56 PM CDT Gender Identity Female 09/04/2021 12:32 PM OFFICE TECHNOLOGY PROFESSOR Sexual Orientation Straight 09/04/2021 12 :32 PM OFFICE TECHNOLOGY PROFESSOR COVID-19 Exposure Response Date Recorded In the last month, have you been in contact with someone who was confirmed or suspected to have Coronavirus / COVID-19? No / Unsure 04/13/2021 3:39 PM CDT documented as of this encounter Functional Status * RETIRED Are you deaf or do you have serious difficulty hearing Answer Date of Assessment Author Status No 07/09/2020 8:09 AM OFFICE TECHNOLOGY PROFESSOR Activ e * RETIRED Are you blind or do you have serious difficulty seeing, even when wearing glasses? Answer Date of Assessment Author Status No 07/09/2020 8:09 AM OFFICE TECHNOLOGY PROFESSOR Activ e * Do you have serious [...] st Contact Info) Description 10/01/2024 8:45 AM OFFICE TECHNOLOGY PROFESSOR Appointment [facility] Outpatient Therapy THREE [facility] [place] [address] Orlando Devries NP [address] [place] [address] Terese Braga OTR 1 [place] [address] 11/04/2024 9:00 AM CDT Office Visit [facility] Medical Group Multispecialty Care - [facility] [address] [facility] [place] [address] Domingo Elizabeth MD 3 [facility] [address] [place] [address] 11/09/2024 1:15 PM CDT Office Visit [facility] THREE [facility], [address] [place] [address] Radha Valente FNP 3 [facility] [address] [place] [address] documented as of this encounter Visit Diagnoses Not on filedocumented in this encounter Additional Health Concerns Infection Onset Date Last Indicated Resolved Time COVID-19 Rule Out 05/28/2021 05/28/2021 05/28/2021 9:04 AM CDT COVID-19 Rule Out 04/28/2022 04/28/2022 04/28/2022 1:35 PM CDT COVID-19 Rule Out 04/28/2022 04/28/2022 04/28/2022 7:46 PM CDT COVID-19 Rule Out 05/17/2022 05/17/2022 05/18/2022 6:00 PM CDT COVID-19 Rule Out 09/25/2023 09/25/2023 09/25/2023 2:02 PM OFFICE TECHNOLOGY PROFESSOR COVID-19 Rule Out 05/26/2024 05/26/2024 05/26/2024 1:58 PM CDT documented as of this encounter Care Teams Pull Up Hand Relationship Specialty Start Date End Date Chris Mahmood DO [address] [place] [address] PCP - General FAMILY PRACTICE 07/06/20 10/17/21 Shruthi Modi MD [address] [place] [address] PCP - General FAMILY PRACTICE 10/18/21 Cornell Bingham MD Three [facility]. [address] [place] [address] Venus Rn Bariatric CARDIOVASCULAR DISEASE 03/01/19 Fabrizio Thomason MD [address] [place] [address] Referring Physician MEDICAL ONCOLOGY 12/06/20 07/03/22 David Beltran DO [address] [place] [address] 100 [place] [phone] Consulting Physician INTERNAL MEDICINE 07/04/22 Xiomara Hernandez NP [address] [place] [address], [address] [place] [address] NURSE PRACTITIONER GERONTOLOGY 07/04/22 Domingo Elizabeth MD 3 [facility] [address] [place] [address] Consulting Physician Internal Medicine Pulmonary Disease 07/04/22 Dmitry Laguna MD [address] [address] Consulting Physician ENDOCRINOLOGY 07/04/22 documented as of this encounter
--- OUTSIDE RECORDS SUMMARY | 2024-09-30 16:30 | XMS_ITS | Encounter Summary ---
Author Organization [facility] Address [address] [place] [address] Care Team Providers Care Tobacco Drummer Name Role Phone Cornell Bingham MD Unavailable [phone] Shruthi Modi MD Primary Care Provider [phone] David Beltran DO Unavailable [phone] Xiomara Hernandez NP Unavailable [phone] Domingo Elizabeth MD Unavailable [phone] Dmitry Laguna MD Unavailable Unavailable Encounter Details Date Type Department Care Team (Late st Contact Info) Description 06/26/2023 MyCMediTAPt Message Enc [facility] Medical Group Family Medicine [facility] [address] [place] [address] Shruthi Modi MD [address] [place] [address] Surgery clearence Social History Tobacco Use Types Packs/Day Years [...] How often do you attend voodoo or adventist serv ices? Patient declined 09/01/2022 Do you [...] Recorded Patient Health Questionnaire-2 Score 6 05/12/2023 [facility] [place] of Occupat ional Health - Occupational Stress [...] Sex Assigned at Female 09/01/2024 3:25 PM CRAPS MANAGER Legal Sex Female 10:56 PM CDT Gender Identity Female 09/04/2021 12:32 PM CRAPS MANAGER Sexual Orientation Straight 09/04/2021 12 :32 PM CRAPS MANAGER documented as of this encounter Functional Status * RETIRED Are you deaf or do you have serious difficulty hearing Answer Date of Assessment Author Status No 08/29/2022 3:53 PM CRAPS MANAGER Activ e * RETIRED Are you blind or do you have serious difficulty seeing, even when wearing glasses? Answer Date of Assessment Author Status No 08/29/2022 3:53 PM CRAPS MANAGER Activ e * Do you have serious difficulty walking or climbing stairs? Answer Date of Assessment Author Status No 08/29/2022 3:53 PM CRAPS MANAGER Kathy Ellis RN Active * Do you have difficulty dressing or bathing? Answer Date of Assessment Author Status No 08/29/2022 3:53 PM Kathy Carballo RN Active * Because of a physical, mental, or emotional condition, do you have difficulty doing errands alone such as visiting a doctor's office or shopping? Answer Date of Assessment Author Status No 08/29/2022 3:53 PM CRAPS MANAGER Kathy Ellis RN Active documented as of this encounter Mental Status * Because of a physical, mental, or emotional condition, do you have serious difficulty concentrating, remembering, or making decisions? Answer Entry Date Author Status No 08/29/2022 3:53 PM CRAPS MANAGER Kathy Ellis RN Active documented in this encounter Plan of Treatment Upcoming Encounters Date Type Department Care Team (Late st Contact Info) Description 10/01/2024 8:45 AM CRAPS MANAGER Appointment [facility] [place] [address] Orlando Devries NP [address] [facility] [place] [address] Terese Braga, ARMANDO 1 [place] [address] 11/04/2024 9:00 AM CDT Office Visit [facility] Medical Group Multispecialty Care - [facility] [address] [facility] [place] [address] Domingo Elizabeth MD 3 [facility] [address] [place] [address] 11/09/2024 1:15 PM CDT Office Visit [facility] THREE [facility], [address] [place] [address] Radha Valente FNP 3 [facility] [address] [place], [place] [address] documented as of this encounter Goals Goal [...] Rule Out 09/25/2023 09/25/2023 09/25/2023 2:02 PM CRAPS MANAGER COVID-19 Rule Out 05/26/2024 05/26/2024 05/26/2024 1:58 PM CDT Assessment Noted Time PHQ-9 Depression Total Score: 24 023 9:34 AM CDT documented as of this encounter Care Teams Tobacco Drummer Relationship Specialty Start Date End Date Shruthi Modi MD [address] [place] [address] PCP - General FAMILY PRACTICE 10/18/21 Cornell Bingham MD Three [facility]. [address] [place] [address] Freedom Check Writer Salesperson CARDIOVASCULAR DISEASE 03/01/19 David Beltran DO [address] [place] [address] [address] [place] [address] Consulting Physician INTERNAL MEDICINE 07/04/22 Xiomara Hernandez BUGGYMAN [address] [place] [address], [address] [place] [address] NURSE PRACTITIONER GERONTOLOGY 07/04/22 Domingo Elizabeth MD 3 [facility] [address] [place] [address] Consulting Physician Internal Medicine Pulmonary Disease 07/04/22 Dmitry Laguna MD 3 [facility] [address] [place] [address] Consulting Physician ENDOCRINOLOGY 07/04/22 documented as of this encounter
--- OUTSIDE RECORDS SUMMARY | 2024-09-30 16:30 | XMS_ITS | Encounter Summary ---
Author Organization [facility] Address [address] [place] [address] Care Team Providers Care Mechanic Driver Name Role Phone Cornell Bingham MD Unavailable [phone] Shruthi Modi MD Primary Care Provider [phone] David Beltran DO Unavailable [phone] Xiomara Hernandez NP Unavailable [phone] Domingo Elizabeth MD Unavailable [phone] Dmitry Laguna MD Unavailable Unavailable Reason for Visit * Reason Onset Date Comments Medication 09/23/2024 CLONIDINE Encounter Details Date Type Department Care Team (Late st Contact Info) Description 09/23/2024 MyChart Message Enc [facility], [address] [id number] Cornell Bingham MD Three [facility]. [facility] [address] [place], [place] [phone] My last 2 bmp's Social History Tobacco Use Types Packs/Day Years [...] declined 09/01/2022 How often do you attend episcopalian or mu-ism serv ices? Patient declined 09/01/2022 Do you belong to any clubs o r organizations such as episcopalian groups, unions, fraternal or athletic groups, or [...] Recorded Patient Health Questionnaire-2 Score 2 09/28/2024 [employer] [place] of Occupat ional Health - Occupational Stress [...] Sex Assigned at Female 09/01/2024 3:25 PM PROTECTION SPECIALIST Legal Sex Female 10:56 PM CDT Gender Identity Female 09/04/2021 12:32 PM PROTECTION SPECIALIST Sexual Orientation Straight 09/04/2021 12 :32 PM PROTECTION SPECIALIST documented as of this encounter Functional Status * RETIRED Are you deaf or do you have serious difficulty hearing Answer Date of Assessment Author Status No 08/29/2022 3:53 PM PROTECTION SPECIALIST Activ e * RETIRED Are you blind or do you have serious difficulty seeing, even when wearing glasses? Answer Date of Assessment Author Status No 08/29/2022 3:53 PM PROTECTION SPECIALIST Activ e * Do you have serious difficulty walking or climbing stairs? Answer Date of Assessment Author Status No 08/29/2022 3:53 PM PROTECTION SPECIALIST Kathy Ellis RN Active * Do you have difficulty dressing or bathing? Answer Date of Assessment Author Status No 08/29/2022 3:53 PM PROTECTION SPECIALIST Kathy Ellis RN Active * Because of a physical, mental, or emotional condition, do you have difficulty doing errands alone such as visiting a doctor's office or shopping? Answer Date of Assessment Author Status No 08/29/2022 3:53 PM PROTECTION SPECIALIST Kathy Ellis RN Active documented as of this encounter Mental Status * Because of a physical, mental, or emotional condition, do you have serious difficulty concentrating, remembering, or making decisions? Answer Entry Date Author Status No 08/29/2022 3:53 PM PROTECTION SPECIALIST Kathy Ellis RN Active documented in this encounter Progress Notes * Halley Medrano RN - 09/30/2024 1:44 PM CST Updated med list./ Juliana Medrano ECTION SPECIALIST * Erum Youssef PA-C - 09/28/2024 7:35 AM CST Would start by trying to get her off the clonidine. If doing 0.1 mg BID, then lower to once a day. ECTION SPECIALIST * JOSE EDUARDO Maloney - 09/27/2024 9:41 AM CST What diuretic med is she taking? ECTION SPECIALIST * JOSE EDUARDO Maloney - 09/24/2024 9:40 AM CST Can you follow up with her? Happy to adjust BP meds of becoming more hypotensive now. Also, I do not see any diuretics listed?? Eg spironolactone, hctz, furosemide, etc? ECTION SPECIALIST documented in this encounter Plan of Treatment Upcoming Encounters Date Type Department Care Team (Late st Contact Info) Description 10/01/2024 8:45 AM PROTECTION SPECIALIST Appointment [facility] [place] [address] Orlando Devries, CUSTOM GRINDER [address] [facility] [place] [address] Terese Braga OTR 1 [place] [address] 11/04/2024 9:00 AM CDT Office Visit [facility] Medical Group Multispecialty Care - [facility] 3 [facility] [address] [place] [address] Domingo Elizabeth MD 3 [facility] [address] [place] [address] 11/09/2024 1:15 PM CDT Office Visit [facility] [address] [facility], [address] [place] [address] Radha Valente FNP [address] [facility] MAR [address] [place] [address] documented as of this encounter Goals Goal Patient Goal Type Associated Problems Recent Progress Patient-Stated? Author Health - patient able to perform ADLs independently Lifestyle No Scott Dos Santos, RN Medications - able to self-administer medications Lifestyle No Scott Dos Santos, RN documented as of this encounter Visit Diagnoses Diagnosis Hypertension due to endocrine disorder documented in this encounter Additional Health Concerns Assessment Noted Time PHQ-9 Depression Total Score: 10 025 2:32 PM PROTECTION SPECIALIST documented as of this encounter Care Teams Mechanic Driver Relationship Specialty Start Date End Date Shruthi Modi MD [address] [place] [address] PCP - General FAMILY PRACTICE 10/18/21 Cornell Bingham MD Three [facility] [address] [place] [address] [place] Change Release Manager CARDIOVASCULAR DISEASE 03/01/19 David Beltran DO [address] [place] [address] [address] [place] [address] Consulting Physician INTERNAL MEDICINE 07/04/22 Xiomara Hernandez, CUSTOM GRINDER [address] [place] [address], [address] [place] [address] NURSE PRACTITIONER GERONTOLOGY 07/04/22 Domingo Elizabeth MD 3 [facility] [address] [place] [address] Consulting Physician Internal Medicine Pulmonary Disease 07/04/22 Dmitry Laguna MD 3 [facility] [address] [place] [address] Consulting Physician ENDOCRINOLOGY 07/04/22 documented as of this encounter
--- OUTSIDE RECORDS SUMMARY | 2024-09-30 16:30 | XMS_ITS | Encounter Summary ---
Author Organization [facility] Address [facility] [place] [address] Care Team Providers Care Communications Programmer Name Role Phone Cornell Bingham MD Unavailable [phone] Shruthi Modi MD Primary Care Provider [phone] David Beltran DO Unavailable [phone] Xiomara Hernandez NP Unavailable [phone] Domingo Elizabeth MD Unavailable [phone] Dmitry Laguna MD Unavailable Unavailable Encounter Details Date Type Department Care Team (Late st Contact Info) Description 02/02/2024 Phoneplus Message Enc [facility] THREE [facility], [facility] [address] [place], [place] [id number] Cornell Bingham MD Three [facility]. [facility] [address] [place] [address] abnormal heart rythm Social History Tobacco Use Types Packs/Day Years [...] How often do you attend buddhism or islam serv ices? Patient declined 09/01/2022 Do you [...] Recorded Patient Health Questionnaire-2 Score 4 02/02/2024 [facility] [place] of Occupat ional Health - Occupational Stress [...] Sex Assigned at Female 09/01/2024 3:25 PM FARM CROPS TEACHER Legal Sex Female 10:56 PM CDT Gender Identity Female 09/04/2021 12:32 PM FARM CROPS TEACHER Sexual Orientation Straight 09/04/2021 12 :32 PM FARM CROPS TEACHER documented as of this encounter Functional Status * RETIRED Are you deaf or do you have serious difficulty hearing Answer Date of Assessment Author Status No 08/29/2022 3:53 PM FARM CROPS TEACHER Activ e * RETIRED Are you blind or do you have serious difficulty seeing, even when wearing glasses? Answer Date of Assessment Author Status No 08/29/2022 3:53 PM FARM CROPS TEACHER Activ e * Do you have serious difficulty walking or climbing stairs? Answer Date of Assessment Author Status No 08/29/2022 3:53 PM FARM CROPS TEACHER Kathy Ellis RN Active * Do you have difficulty dressing or bathing? Answer Date of Assessment Author Status No 08/29/2022 3:53 PM FARM CROPS TEACHER Kathy Ellis RN Active * Because [...] Progress Notes * JOSE EDUARDO Maloney - 02/05/2024 12:32 PM CDT Elevate legs and use compression stockings if able * JOSE EDUARDO Maloney - 02/05/2024 12:27 PM CDT Do we known when she is getting the secondary HTN labs eg. pheo screen, renin/sol, ACTH (before steroids), renal dopplers, etc? A med one can take for HTN, edema, low K I believe needs held prior to getting those above labs. * JOSE EDUARDO Maloney - 02/03/2024 11:00 PM CDT They are rather labile, some even significantly low, with recent readings on the higher end. It looks like she has her endo yesterday and they discussed her BP issues. Per OV note, she is taking losartan 100, amlodipine 10, propranolol 120mg. They are restarting clonidine 0.1mg BID and holding amiloride 5mg BID. Getting JOSE work up as well. It also looks like she is doing more secondary HTN workup? She mentioned needing a pheo screen, renin/sol, ACTH (before steroids), renal dopplers --> CS eval after this is completed. Check with Mrs. Barroso to see if this is all correct. * JOSE EDUARDO Maloney - 02/03/2024 3:44 PM CDT Upcomming OV. Would recommend she provide a home BP and HR log to review then go from there. documented in this encounter Plan of Treatment Upcoming Encounters Date Type Department Care Team (Late st Contact Info) Description 10/01/2024 8:45 AM FARM CROPS TEACHER Appointment [facility] [place] [address] Orlando Devries NP [address] [facility] [place] [address] Terese Braga OTR 1 [place] [address] 11/04/2024 9:00 AM CDT Office Visit [facility] Multispecialty Care - [facility] [address] [facility] [address] [facility] [place] [phone] Domingo Elizabeth MD 3 [facility] [address] [place] [address] 11/09/2024 1:15 PM CDT Office Visit [facility] THREE [facility], [address] [place], [place] [address] Radha Valente FNP 3 [facility] [address] [place], [place] [address] documented as of this encounter Goals Goal [...] documented as of this encounter Care Teams Communications Programmer Relationship Specialty Start Date End Date Shruthi Modi MD [address] [place] [address] PCP - General FAMILY PRACTICE 10/18/21 Cornell Bingham MD Three [facility]. [facility] [address] [place] [address] [place] Public Area Attendant CARDIOVASCULAR DISEASE 03/01/19 David Beltran DO [address] [place] [address] [address] [place] [address] Consulting Physician INTERNAL MEDICINE 07/04/22 Xiomara Hernandez, JOHN [address] [place] [address], [address] [place] [address] NURSE PRACTITIONER GERONTOLOGY 07/04/22 Domingo Elizabeth MD 3 [facility] [address] [place] [address] Consulting Physician Internal Medicine Pulmonary Disease 07/04/22 Dmitry Laguna MD 3 [facility] [address] [place] [address] Consulting Physician ENDOCRINOLOGY 07/04/22 documented as of this encounter
--- OUTSIDE RECORDS SUMMARY | 2024-09-30 16:30 | XMS_ITS | Encounter Summary ---
Author Organization [facility] Address [address] [place] [address] Care Team Providers Care Aerial Sprayer Name Role Phone Cornell Bingham MD Unavailable [phone] Shruthi Modi MD Primary Care Provider [phone] David Beltran DO Unavailable [phone] Xiomara Hernandez NP Unavailable [phone] Domingo Elizabeth MD Unavailable [phone] Dmitry Laguna MD Unavailable Unavailable Encounter Details Date Type Department Care Team (Late st Contact Info) Description 12/08/2023 [employer] Consultingt Message Enc [facility] Multispecialty Care - [facility] 3 [facility], [address] [place] [phone] Farzaneh Rueda NP 3 [facility] [address] [place] [address] Colonoscopy Social History Tobacco Use Types Packs/Day Years Used Date Smoking Tobacco: Former Cigarettes 0.9 25 0 01/17/2010 - 01/17/2022 Smokeless Tobacco: Never Comments:Quit Date January 2022 [...] declined 09/01/2022 How often do you attend oriental orthodox or mormon serv ices? Patient declined 09/01/2022 Do you belong to any clubs o r organizations such as oriental orthodox groups, unions, fraternal or athletic groups, or [...] Date Recorded Patient Health Questionnaire-2 Score 0 11/24/2023 [facility] of Occupat ional Health - Occupational [...] Sex Assigned at Female 09/01/2024 3:25 PM GROUP ART SUPERVISOR Legal Sex Female 10:56 PM CDT Gender Identity Female 09/04/2021 12:32 PM GROUP ART SUPERVISOR Sexual Orientation Straight 09/04/2021 12 :32 PM GROUP ART SUPERVISOR documented as of this encounter Functional Status * RETIRED Are you deaf or do you have serious difficulty hearing Answer Date of Assessment Author Status No 08/29/2022 3:53 PM GROUP ART SUPERVISOR Activ e * RETIRED Are you blind or do you have serious difficulty seeing, even when wearing glasses? Answer Date of Assessment Author Status No 08/29/2022 3:53 PM GROUP ART SUPERVISOR Activ e * Do you have serious difficulty walking or climbing stairs? Answer Date of Assessment Author Status No 08/29/2022 3:53 PM GROUP ART SUPERVISOR Kathy Ellis RN Active * Do you have difficulty dressing or bathing? Answer Date of Assessment Author Status No 08/29/2022 3:53 PM GROUP ART SUPERVISOR Kathy Ellis RN Active * Because of a physical, mental, or emotional condition, do you have difficulty doing errands alone such as visiting a doctor's office or shopping? Answer Date of Assessment Author Status No 08/29/2022 3:53 PM GROUP ART SUPERVISOR Kathy Ellis RN Active documented as of this encounter Mental Status * Because of a physical, mental, or emotional condition, do you have serious difficulty concentrating, remembering, or making decisions? Answer Entry Date Author Status No 08/29/2022 3:53 PM GROUP ART SUPERVISOR Kathy Ellis RN Active documented in this encounter Plan of Treatment Upcoming Encounters Date Type Department Care Team (Late st Contact Info) Description 10/01/2024 8:45 AM GROUP ART SUPERVISOR Appointment [facility] Outpatient [place] [address] Orlando Devries NP [address] [place] [address]. [place] [address] Terese Braga OTR 1 [place] [address] 11/04/2024 9:00 AM CDT Office Visit [facility] Multispecialty Care - [facility] 3 [facility] [address] [place] [address] Domingo Elizabeth MD 3 [facility] [address] [place] [address] 11/09/2024 1:15 PM CDT Office Visit [facility] THREE [facility], [address] [place] [address] Radha Valente FNP 3 [facility] [address] [place], [place] [address] documented as of this encounter Goals Goal Patient Goal Type Associated Problems Recent Progress Patient-Stated? Author Health - patient able to perform ADLs independently Lifestyle No Raya, Scott L, RN Medications - able to self-administer medications [...] documented as of this encounter Care Teams Aerial Sprayer Relationship Specialty Start Date End Date Shruthi Modi MD [facility] [place] [address] PCP - General FAMILY PRACTICE 10/18/21 Cornell Bingham MD Three [facility]. [address] [place] [address] [place] White Sugar Boiler CARDIOVASCULAR DISEASE 03/01/19 David Beltran DO [address] [place] [address] [address] [place] [address] Consulting Physician INTERNAL MEDICINE 07/04/22 Xiomara Hernandez NP [address] [place] [address], [address] [place] [address] NURSE PRACTITIONER GERONTOLOGY 07/04/22 Domingo Elizabeth MD 3 [facility] M[address] [place] [address] Consulting Physician Internal Medicine Pulmonary Disease 07/04/22 Dmitry Laguna MD 3 [facility] [address] [place] [address] Consulting Physician ENDOCRINOLOGY 07/04/22 documented as of this encounter
--- OUTSIDE RECORDS SUMMARY | 2024-09-30 16:30 | XMS_ITS | Encounter Summary ---
Author Organization [facility] Address [address] [place] [address] Care Team Providers Care Proposal Engineer Name Role Phone Cornell Bingham MD Unavailable [phone] Shruthi Modi MD Primary Care Provider [phone] David Beltran DO Unavailable [phone] Xiomara Hernandez NP Unavailable [phone] Domingo Elizabeth MD Unavailable [phone] Dmitry Laguna MD Unavailable Unavailable Encounter Details Date Type Department Care Team (Late st Contact Info) Description 03/17/2023 MyChart Message Enc [facility] Medical [facility] Diabetes and Endocrinology - [place] [address] [facility] [address] [place], [place] [id number] Dmitry Laguna MD cortisol Social History Tobacco Use Types Packs/Day Years [...] How often do you attend zoroastrianism or hoahaoism serv ices? Patient declined 09/01/2022 [...] Answer Date Recorded Patient Health Questionnaire-2 Score 1 01/29/2023 [facility] of Occupat ional Health - Occupational [...] place to sleep or slept in a [place] health care facility (including now)? No 09/01/2022 Comments No Sex and Gender Information Value Date Recorded Sex Assigned at Female 09/01/2024 3:25 PM INSURANCE BILLING CLERK Legal Sex Female 10:56 PM CDT Gender Identity Female 09/04/2021 12:32 PM INSURANCE BILLING CLERK Sexual Orientation Straight 09/04/2021 12 :32 PM INSURANCE BILLING CLERK documented as of this encounter Functional Status * RETIRED Are you deaf or do you have serious difficulty hearing Answer Date of Assessment Author Status No 08/29/2022 3:53 PM INSURANCE BILLING CLERK Activ e * RETIRED Are you blind or do you have serious difficulty seeing, even when wearing glasses? Answer Date of Assessment Author Status No 08/29/2022 3:53 PM INSURANCE BILLING CLERK Activ e * Do you have serious difficulty walking or climbing stairs? Answer Date of Assessment Author Status No 08/29/2022 3:53 PM INSURANCE BILLING CLERK Kathy Ellis RN Active * Do you have difficulty dressing or bathing? Answer Date of Assessment Author Status No 08/29/2022 3:53 PM INSURANCE BILLING CLERK Kathy Ellis RN Active * Because of a physical, mental, or emotional condition, do you have difficulty doing errands alone such as visiting a doctor's office or shopping? Answer Date of Assessment Author Status No 08/29/2022 3:53 PM INSURANCE BILLING CLERK Kathy Ellis RN Active documented as of this encounter Mental Status * Because of a physical, mental, or emotional condition, do you have serious difficulty concentrating, remembering, or making decisions? Answer Entry Date Author Status No 08/29/2022 3:53 PM INSURANCE BILLING CLERK Kathy Ellis RN Active documented in this encounter Plan of Treatment Upcoming Encounters Date Type Department Care Team (Late st Contact Info) Description 10/01/2024 8:45 AM INSURANCE BILLING CLERK Appointment [facility] Outpatient Therapy [address] [facility] [address] Orlando Devries NP [address] [facility] [place] [address] Terese Braga, OTR 1 [place], [place] [id number] 11/04/2024 9:00 AM CDT Office Visit [facility] Medical Group Multispecialty Care - [facility] 3 [facility] [address] [place] [address] Domingo Elizabeth MD 3 [facility] [address] [place], [place] [address] 11/09/2024 1:15 PM CDT Office Visit [facility] THREE [facility], [address] [place], [place] [phone] Radha Valente FNP 3 [facility] [address] [place], [place] [address] documented as of this encounter Goals Goal [...] Rule Out 09/25/2023 09/25/2023 09/25/2023 2:02 PM INSURANCE BILLING CLERK COVID-19 Rule Out 05/26/2024 05/26/2024 05/26/2024 1:58 PM CDT Assessment Noted Time PHQ-9 Depression Total Score: 15 022 2:20 PM CDT documented as of this encounter Care Teams Proposal Engineer Relationship Specialty Start Date End Date Shruthi Modi MD [address] [place] [address] PCP - General FAMILY PRACTICE 10/18/21 Cornell Bingham MD Three [facility] [address] [place] [address] [place] Registered Respiratory Therapist CARDIOVASCULAR DISEASE 03/01/19 David Beltran DO [address] [place] [address] [address] [place] [address] Consulting Physician INTERNAL MEDICINE 07/04/22 Xiomara Hernandez, MICA PLATE LAYER HAND [address] [place] [address], [address] [place] [address] NURSE PRACTITIONER GERONTOLOGY 07/04/22 Domingo Elizabeth MD 3 [facility] [address] [place] [address] Consulting Physician Internal Medicine Pulmonary Disease 07/04/22 Dmitry Laguna MD [address] [place] [address] Consulting Physician ENDOCRINOLOGY 07/04/22 documented as of this encounter
--- OUTSIDE RECORDS SUMMARY | 2024-09-30 16:30 | XMS_ITS | Encounter Summary ---
Author Organization [facility] Address [address] [place] [address] Care Team Providers Care Object Oriented Developer Name Role Phone Cornell Bingham MD Unavailable [phone] Chris Mahmood DO Primary Care Provider [phone] Fabrizio Thomason MD Unavailable [phone] Shruthi Modi MD Primary Care Provider [phone] David Beltran DO Unavailable [phone] Xiomara Hernandez NP Unavailable [phone] Domingo Elizabeth MD Unavailable [phone] Dmitry Laguna MD Unavailable Unavailable Encounter Details Date Type Department Care Team (Late st Contact Info) Description 09/05/2021 [employer] Message Enc [facility] Medical Group Diabetes and Endocrinology - [place] [address] [facility] [address] [place], [place] [phone] Dmitry Laguna MD [facility] Social History Tobacco Use Types Packs/Day Years [...] Sex Assigned at Female 09/01/2024 3:25 PM METROLOGY SPECIALIST Legal Sex Female 10:56 PM CDT Gender Identity Female 09/04/2021 12:32 PM METROLOGY SPECIALIST Sexual Orientation Straight 09/04/2021 12 :32 PM METROLOGY SPECIALIST COVID-19 Exposure Response Date Recorded In the last month, have you been in contact with someone who was confirmed or suspected to have Coronavirus / COVID-19? No / Unsure 09/04/2021 10:52 AM METROLOGY SPECIALIST documented as of this encounter Functional Status * RETIRED Are you deaf or do you have serious difficulty hearing Answer Date of Assessment Author Status No 07/09/2020 8:09 AM METROLOGY SPECIALIST Activ e * RETIRED Are you blind or do you have serious difficulty seeing, even when wearing glasses? Answer Date of Assessment Author Status No 07/09/2020 8:09 AM METROLOGY SPECIALIST Activ e * Do you have [...] st Contact Info) Description 10/01/2024 8:45 AM METROLOGY SPECIALIST Appointment [facility] THREE [facility] [place] [address] Orlando Devries NP [address] [facility] [place] [address] Terese Braga OTR 1 [place] [address] 11/04/2024 9:00 AM CDT Office Visit [facility] Group Multispecialty Care - Health system 3 [facility] [place] [phone] Domingo Elizabeth MD 3 [facility] [address] [place] [address] 11/09/2024 1:15 PM CDT Office Visit [facility] THREE [facility], [address] [place] [address] Radha Valente FNP 3 [facility] [address] [place] [address] documented as of this encounter Visit Diagnoses Not on filedocumented in this encounter Additional Health Concerns Infection Onset Date Last Indicated Resolved Time COVID-19 Rule Out 04/28/2022 04/28/2022 04/28/2022 1:35 PM CDT COVID-19 Rule Out 04/28/2022 04/28/2022 04/28/2022 7:46 PM CDT COVID-19 Rule Out 05/17/2022 05/17/2022 05/18/2022 6:00 PM CDT COVID-19 Rule Out 09/25/2023 09/25/2023 09/25/2023 2:02 PM METROLOGY SPECIALIST COVID-19 Rule Out 05/26/2024 05/26/2024 05/26/2024 1:58 PM CDT Assessment Noted Time PHQ-9 Depression Total Score: 2 08/01/20 21 2:26 PM METROLOGY SPECIALIST documented as of this encounter Care Teams Object Oriented Developer Relationship Specialty Start Date End Date Chris Mahmood DO [address] [place] [address] PCP - General FAMILY PRACTICE 07/06/20 10/17/21 Shruthi Modi MD [address] [place] [address] PCP - General FAMILY PRACTICE 10/18/21 Cornell Bingham MD Three [facility]. [address] [address] [place] Software Engineer Developer CARDIOVASCULAR DISEASE 03/01/19 Fabrizio Thomason MD [address] [place] [address] Referring Physician MEDICAL ONCOLOGY 12/06/20 07/03/22 David Beltran DO [address] [place] [phone] Consulting Physician INTERNAL MEDICINE 07/04/22 Xiomara Hernandez ENERGY ADVISOR [address] [place] [address], [address] [place] [address] NURSE PRACTITIONER GERONTOLOGY 07/04/22 Domingo Elizabeth MD 3 [facility] [address] [place] [address] Consulting Physician Internal Medicine Pulmonary Disease 07/04/22 Dmitry Laguna MD [address] [place] [address] Consulting Physician ENDOCRINOLOGY 07/04/22 documented as of this encounter
--- OUTSIDE RECORDS SUMMARY | 2024-09-30 16:30 | XMS_ITS | Encounter Summary ---
Author Organization [facility] Address [address] [place] [address] Care Team Providers Care Map Compiler Name Role Phone Cornell Bingham MD Unavailable [phone] Shruthi Modi MD Primary Care Provider [phone] David Beltran DO Unavailable [phone] Xiomara Hernandez NP Unavailable [phone] Domingo Elizabeth MD Unavailable [phone] Dmitry Laguna MD Unavailable Unavailable Encounter Details Date Type Department Care Team (Late st Contact Info) Description 02/07/2023 iVillaget Message Enc [facility] Medical Group Family Medicine [facility] [address] [place] [address] Shruthi Modi MD [facility] [place] [address] Appointment Social History Tobacco Use Types Packs/Day [...] declined 09/01/2022 How often do you attend yarsani or evangelical serv ices? Patient declined 09/01/2022 Do you belong to any clubs o r organizations such as yarsani groups, unions, fraternal or athletic groups, or [...] Recorded Patient Health Questionnaire-2 Score 1 01/29/2023 [facility] of Occupat ional Health - Occupational Stress [...] place to sleep or slept in a 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 (including now)? No 09/01/2022 Comments No Sex and Gender Information Value Date Recorded Sex Assigned at Female 09/01/2024 3:25 PM MUSSEL FARMER Legal Sex Female 10:56 PM CDT Gender Identity Female 09/04/2021 12:32 PM MUSSEL FARMER Sexual Orientation Straight 09/04/2021 12 :32 PM MUSSEL FARMER COVID-19 Exposure Response Date Recorded In the last 10 days, have yo u been in contact with someone who was confirmed or suspected to have Coronavirus/COVID-19? No / Unsure 01/30/2023 3:08 PM CDT documented as of this encounter Functional Status * RETIRED Are you deaf or do you have serious difficulty hearing Answer Date of Assessment Author Status No 08/29/2022 3:53 PM MUSSEL FARMER Activ e * RETIRED Are you blind or do you have serious difficulty seeing, even when wearing glasses? Answer Date of Assessment Author Status No 08/29/2022 3:53 PM MUSSEL FARMER Activ e * Do you have serious difficulty walking or climbing stairs? Answer Date of Assessment Author Status No 08/29/2022 3:53 PM MUSSEL FARMER Kathy Ellis RN Active * Do you have difficulty dressing or bathing? Answer Date of Assessment Author Status No 08/29/2022 3:53 PM MUSSEL FARMER Kathy Ellis RN Active * Because of a physical, mental, or emotional condition, do you have difficulty doing errands alone such as visiting a doctor's office or shopping? Answer Date of Assessment Author Status No 08/29/2022 3:53 PM MUSSEL FARMER Kathy Ellis RN Active documented as of this encounter Mental Status * Because of a physical, mental, or emotional condition, do you have serious difficulty concentrating, remembering, or making decisions? Answer Entry Date Author Status No 08/29/2022 3:53 PM MUSSEL FARMER Kathy Ellis RN Active documented in this encounter Plan of Treatment Upcoming Encounters Date Type Department Care Team (Late st Contact Info) Description 10/01/2024 8:45 AM MUSSEL FARMER Appointment [facility] [place] [address] [place] [address] Orlando Devries NP [address] [place] [address]. [place] [address] Terese Braga OTR 1 [place] [address] 11/04/2024 9:00 AM CDT Office Visit [facility] Medical Group Multispecialty Care - [facility] [address] [facility] [place] [address] Domingo Elizabeth MD [address] [facility] [address] [place] [address] 11/09/2024 1:15 PM CDT Office Visit [facility] THREE [facility], [address] [place] [address] Radha Valente FNP [address] [facility] [address] [place] [address] documented as of this encounter Goals Goal [...] Rule Out 09/25/2023 09/25/2023 09/25/2023 2:02 PM MUSSEL FARMER COVID-19 Rule Out 05/26/2024 05/26/2024 05/26/2024 1:58 PM CDT Assessment Noted Time PHQ-9 Depression Total Score: 15 022 2:20 PM CDT documented as of this encounter Care Teams Map Compiler Relationship Specialty Start Date End Date Shruthi Modi MD [address] [place] [address] PCP - General FAMILY PRACTICE 10/18/21 Cornell Bingham MD [address] [facility]. [facility] [address] [place] [address] [place] [employer] Window CARDIOVASCULAR DISEASE 03/01/19 David Beltran DO [address] [place] [address] [address] [place] [address] Consulting Physician INTERNAL MEDICINE 07/04/22 Xiomara Hernandez NP [address] [place] [address], [address] [place] [address] NURSE PRACTITIONER GERONTOLOGY 07/04/22 Domingo Elizabeth MD [address] [facility] [address] [place] [address] Consulting Physician Internal Medicine Pulmonary Disease 07/04/22 Dmitry Laguna MD [address] [place] [address] Consulting Physician ENDOCRINOLOGY 07/04/22 documented as of this encounter
--- OUTSIDE RECORDS SUMMARY | 2024-09-30 16:30 | XMS_ITS | Encounter Summary ---
Author Organization [facility] Facility Care Team Providers Care Finance Vice President Name Role Phone Paddy Riley MD, Fabrizio Unavailable [phone] Chris Mahmood DO Primary Care Provider + No, Physician Primary Care Provider [phone] Shruthi Modi MD Primary Care Provider Dmitry Laguna MD Unavailable Encounter Details Date Type Department Care Team (Latest Contact Info) Description 10/29/2017 Orders Only [facility] CLINCONV ProviderRay MD [address] [place] [address] Social History Tobacco Use Types Packs/Day Years Used Date Smoking Tobacco: Never Assessed Comments Unknown Sex and Gender Information Value Date Recorded Sex Assigned at Not on file Legal Sex Female 6:55 AM TERMITE CONTROL SERVICER Gender Identity Female 07/23/2020 8:34 PM TERMITE CONTROL SERVICER Sexual Orientation Straight 07/23/2020 8: 34 PM TERMITE CONTROL SERVICER documented as of this encounter Plan of [...] documented as of this encounter Care Teams Finance Vice President Relationship Specialty Start Date End Date Chris Mahmood DO [address] [place] [address] PCP - General Family Medicine 07/05/21 10/04/21 No, Physician PCP - General 10/15/21 10/23/21 Shruthi Modi MD [address] [facility] [place] [address] PCP - General Family Practice 10/24/21 Fabrizio Thomason Jr., MD Medical Oncologist/Hematologis t Medical Oncology 03/02/21 Dmitry Laguna MD [address] [facility] [place] [address] Referring Physician Endocrinology Diabetes & Metabolism 05/21/23 documented as of this encounter
--- OUTSIDE RECORDS SUMMARY | 2024-09-30 16:30 | XMS_ITS | Referral Summary ---
Author Organization [facility] Address [address] [place] [address] Care Team Providers Care Diesel Truck Crane Operator Name Role Phone Paddy Riley MD, Fabrizio Unavailable [phone] Shruthi Modi MD Primary Care Provider Dmitry Laguna MD Unavailable [phone] Encounters Date Type Department Care Team Description 09/21/2024 Telephone [facility] Endocrinology Metabolism and Lipid [address] [facility] 5th [place] [address] [place] [address] Regla Gil, specimen accessioner Results 09/14/2024 Orders Only [facility] Medical [facility] Obstetrical Gynecology [address] [place] [address] [place] [address] Edmond Bruno MD 09/14/2024 Telephone [facility] Obstetrical Gynecology [address] [place] [address] [address] [place] [address] Edmond Bruno MD 09/08/2024 Telephone [facility] Endocrinology Metabolism and Lipid [address] [facility] [address] [place] [address] Regla Gil, DEWEY Follow-up 09/08/2024 10:40 AM CHEMICAL LAB SUPERVISOR Office Visit [facility] Endocrinology Metabolism and Lipid [address] [facility] [address] [place] [address] [place] [address] Bita Irby MD Type 2 diabetes mellitus with hyperglycemia, without long-term current use of insulin (HCC) (Primary Dx); Osteopenia, unspecified location; Compression fracture of lumbar vertebra, unspecified lumbar vertebral level, sequela 08/31/2024 Telephone [facility] Endocrinology Metabolism and Lipid [address] [facility] [address] [place] [address] [place] [address] Regla Gil RN CGM 07/22/2024 1:30 PM CHEMICAL LAB SUPERVISOR Procedure visit [facility] Medical Group Neurology [address] [facility] [address] [place] [address] Xiomara Hernandez NP Intractable chronic [...] (twelve) hours Active blood-glucose meter,continuous ([employer] G6 Shoe Cobbler) misc Use as directed 1 each 09/08/19 [...] 09/09/2020 Assessment & Plan (09/09/2020 7:50 AM CHEMICAL LAB SUPERVISOR): Discussed CDC guideline for quarantine. Drink plenty [...] CDT): Patient is a former patient of [facility] being treated with combination migraine prophylaxis [...] year. Cardiac murmur 11/26/2016 Narcotic abuse, continuous ([facility]) 09/16/2016 Drug-seeking behavior 08/21/2016 IBS (irritable bowel [...] vative Free, Intramuscular 07/18/2016,07/06/2015 Influenza, Unspecified 05/17/2020,2018,05/22/2018,06/01,09/06/2005 [employer] SARS-CoV-2 Monovalent Vaccination (12+ Yrs) AVILA-READY TO [...] on file Legal Sex Female 6:55 AM CHEMICAL LAB SUPERVISOR Gender Identity Female 07/23/2020 8:34 PM CHEMICAL LAB SUPERVISOR Sexual Orientation Straight 07/23/2020 8: 34 PM CHEMICAL LAB SUPERVISOR Last Filed Vital Signs Vital Sign Reading Time Taken Comments Blood Pressure 114/75 09/08/2024 11:09 AM CHEMICAL LAB SUPERVISOR Pulse 81 09/08/2024 11:09 AM CHEMICAL LAB SUPERVISOR Temperature 36.5 C (97.7 F) 09/08/2024 11:09 AM CHEMICAL LAB SUPERVISOR Respiratory Rate 16 06/15/2024 8:35 PM CDT Oxygen Saturation 100% 06/15/2024 8:35 PM CDT Inhaled Oxygen Concentration - - Weight 68 kg (150 lb) 09/08/2024 11:09 AM CHEMICAL LAB SUPERVISOR Height 167.6 cm (5' 6 ) 09/08/2024 11:09 AM CHEMICAL LAB SUPERVISOR Body Mass Index 24.21 09/08/2024 11:09 AM CHEMICAL LAB SUPERVISOR Plan of Treatment Not on file Procedures Procedure Name Priority Date/Time Associated Diagnosis Comments BOTOX INJECTION Routine 07/22/2024 1:30 PM CHEMICAL LAB SUPERVISOR Intractable chronic migraine without aura and without status migrainosus EGFR STAT 06/15/2024 2:40 PM CDT DIABETIC EYE EXAM Routine 02/16/2024 2:0 5 PM CDT HEMOGLOBIN A1C Routine 11/04/2023 11:15 AM CDT Adrenal mass (HCC) Type 2 diabetes mellitus with other specified complication, unspecified whether termite inspector insulin use (HCC) LIPID PANEL Routine 11/04/2023 11:15 AM CDT Adrenal mass (HCC) Type 2 diabetes mellitus with other specified complication, unspecified whether assisted insulin use (HCC) ALBUMIN CREATININE RATIO, URINE Routine 11/04/2023 11:15 AM CDT Adrenal mass (HCC) Type 2 diabetes mellitus with other specified complication, unspecified whether termite inspector insulin use (HCC) PAP AND HIGH RISK HPV, REFLEX TO GENOTYPING Routine 06/11/2023 11:48 AM CDT Encounter for screening for malignant neoplasm of cervix COLONOSCOPY Routine 07/06/2020 SCREENING MAMMOGRAM BILATERAL W LENY Routine 12/31/2016 12:28 PM CDT from Last 3 Months or Most Recently Relevant to Health Maintenance Results * Botox Injection (07/22/2024 1:30 PM CHEMICAL LAB SUPERVISOR) Narrative Ritika Treadwell - 07/22/2024 1:30 PM CHEMICAL LAB SUPERVISOR Ritika Treadwell 07/23/2024 12:25 PM Botox Injection Performed by: Xiomara Hernandez NP Authorized by: Xiomara Hernandez NP [place] Protocol: Consent Given by: Patient Timeout: prior [...] Hernandez NP Authorized by: Xiomara Hernandez NP [place] Protocol: Consent Given by: Patient Timeout: prior [...] was last reviewed 2021. Testing performed by: [facility], [address] [place] [address]., [id number] Blood 06/15/2024 2:40 PM CDT 06/15/2024 2:50 PM CDT us Chris Lopez Jr., MD LAB BLOOD ORDERABLES Fi nal Result Performing Organization Address [facility] Co de Phone Number RAYMON [address] [facility] Department [place] [address] * Diabetic Eye Exam (02/16/2024 2:05 PM [...] MD LAB URINE ORDERABLES Final Res ult [facility] * [...] MD LAB BLOOD ORDERABLES Final Res ult [facility] * [...] AM CDT 11/04/2023 12:42 PM CDT Narrative [facility] - 11/04/2023 1:37 PM [...] CDT 06/13/2023 11:48 AM CDT Narrative PATHOLOGY [facility] - 06/17/2023 3:27 PM CDT [facility] Department of Pathology [address] [place], [place] [id number] Final Report with Addendum Note to Patients: [...] the details. Patient Name: COLIN BOYD Address: [address] [place] [address] [address] [place] [address] Gender: F : 1970 (Age: 53) Service: Location: [facility] : [phone] [facility] #: [id number] Patient Type: [facility] SPECIMEN Taken: 06/11/2023 Received: 06/13/2023 Accessioned:: 06/13/2023 Reported: 06/17/2023 Physician(s): Edmond Bruno M.D. [facility] Diagnosis: SOURCE OF SPECIMEN SCREENING THIN PREP IMAGED PAP w/ HPV: STATEMENT OF ADEQUACY - Satisfactory for evaluation; endocervical/transformation zone component present - This case was rejected by computer assisted technology and was manually screened by a grey goods examiner GENERAL CATEGORIZATION: - Negative for intraepithelial lesion [...] this test have been verified by the [facility] Molecular Infectious Disease laboratory. Correlate with reported [...] determined by the Surgical Pathology Department at [facility] as part of an ongoing engagement quality consultant program and in compliance with federally mandated [...] characteristics determined by the Surgical Pathology Department [facility]. It has not been cleared or approved by the U. S. Food and Drug Administration. Edmond Bruno MD LAB CYTOLOGY ORDERABLES Final Result PATHOLOGY [facility] * Colonoscopy (07/06/2020) Anatomical Region Laterality Modality [...] Please contact Infection Prevention. 01/16/2024 01/16/[address] [place] [place] [address] [facility] PPO [facility] PPO [facility] PRIME Care Teams Diesel Truck Crane Operator Relationship Specialty Start Date End Date Shruthi Modi MD [address] [place] [address] PCP - General Family Practice 10/24/21 Fabrizio Thomason Jr., MD Medical Oncologist/Hematologis t Medical Oncology 03/02/21 Dmitry Laguna MD [address] [facility] [place] [address] Referring Physician Endocrinology Diabetes & Metabolism 05/21/23
--- OUTSIDE RECORDS SUMMARY | 2024-09-30 16:30 | XMS_ITS | Encounter Summary ---
Author Organization [facility] Address [address] [place] [address] Care Team Providers Care Tread Tuber Machine Operator Name Role Phone Cornell Bingham MD Unavailable [phone] Shruthi Modi MD Primary Care Provider [phone] David Beltran DO Unavailable [phone] Xiomara Hernandez NP Unavailable [phone] Domigno Elizabeth MD Unavailable [phone] Dmitry Laguna MD Unavailable Unavailable Encounter Details Date Type Department Care Team (Late st Contact Info) Description 01/22/2024 MyCCogniSenst Message Enc [facility] Multispecialty Care - [facility] [address] [facility] [place] [address] Farzaneh Rueda NP [address] [facility] [address] [place] [address] ER visits Social History Tobacco Use Types Packs/Day Years [...] How often do you attend mormon or muslim serv ices? Patient declined 09/01/2022 Do you [...] Recorded Patient Health Questionnaire-2 Score 0 11/24/2023 [facility] of Occupat ional Health - Occupational [...] Sex Assigned at Female 09/01/2024 3:25 PM GLASS ENGRAVER Legal Sex Female 10:56 PM CDT Gender Identity Female 09/04/2021 12:32 PM GLASS ENGRAVER Sexual Orientation Straight 09/04/2021 12 :32 PM GLASS ENGRAVER documented as of this encounter Functional Status * RETIRED Are you deaf or do you have serious difficulty hearing Answer Date of Assessment Author Status No 08/29/2022 3:53 PM GLASS ENGRAVER Activ e * RETIRED Are you blind or do you have serious difficulty seeing, even when wearing glasses? Answer Date of Assessment Author Status No 08/29/2022 3:53 PM GLASS ENGRAVER Activ e * Do you have serious difficulty walking or climbing stairs? Answer Date of Assessment Author Status No 08/29/2022 3:53 PM GLASS ENGRAVER Kathy Ellis RN Active * Do you have difficulty dressing or bathing? Answer Date of Assessment Author Status No 08/29/2022 3:53 PM GLASS ENGRAVER Kathy Ellis RN Active * Because of a physical, mental, or emotional condition, do you have difficulty doing errands alone such as visiting a doctor's office or shopping? Answer Date of Assessment Author Status No 08/29/2022 3:53 PM GLASS ENGRAVER Kathy Ellis RN Active documented as of this encounter Mental Status * Because of a physical, mental, or emotional condition, do you have serious difficulty concentrating, remembering, or making decisions? Answer Entry Date Author Status No 08/29/2022 3:53 PM GLASS ENGRAVER Kathy Ellis RN Active documented in this encounter Plan of Treatment Upcoming Encounters Date Type Department Care Team (Late st Contact Info) Description 10/01/2024 8:45 AM GLASS ENGRAVER Appointment [facility] [place]patient [place] [address] [place] [address] Orlando Devries NP [address] [place] [address]. [place] [address] Terese Braga OTR [address] [place] [address] 11/04/2024 9:00 AM CDT Office Visit [facility] Multispecialty Care - [facility] [address] [facility] [place] [address] Domingo Elizabeth MD [address] [facility] [address] [place] [address] 11/09/2024 1:15 PM CDT Office Visit [facility] [address] [facility], [address] [place] [address] Radha Valente FNP [address] [facility] [address] [place], [place] [address] documented as of this encounter Goals Goal [...] documented as of this encounter Care Teams Tread Tuber Machine Operator Relationship Specialty Start Date End Date Shruthi Modi MD [address] [place] [address] PCP - General FAMILY PRACTICE 10/18/21 Cornell Bingham MD [address] [facility]. [address] [place] [address] [place] Transformer Assembler CARDIOVASCULAR DISEASE 03/01/19 David Beltran DO [address] [place] [address] [address] [place] [address] Consulting Physician INTERNAL MEDICINE 07/04/22 Xiomara Hernandez NP [address] [place] [address], [address] [place] [address] NURSE PRACTITIONER GERONTOLOGY 07/04/22 Domingo Elizabeth MD [address] [facility] [address] [place] [address] Consulting Physician Internal Medicine Pulmonary Disease 07/04/22 Dmitry Laguna MD [address] [facility] [address] [place] [address] Consulting Physician ENDOCRINOLOGY 07/04/22 documented as of this encounter
--- OUTSIDE RECORDS SUMMARY | 2024-09-30 16:30 | XMS_ITS | Encounter Summary ---
Author Organization [facility] Facility Care Team Providers Care Electrical Journeyman Name Role Phone Paddy Riley MD, Fabrizio Unavailable [phone] Chris Mahmood DO Primary Care Provider + No, Physician Primary Care Provider [phone] Shruthi Modi MD Primary Care Provider Dmitry Laguna MD Unavailable [phone] Encounter Details Date Type Department Care Team (Latest Contact Info) Description 10/17/2017 Orders Only [facility] CLINCONV ProviderRay MD [address] [place], [place] [address] Social History Tobacco Use Types Packs/Day Years Used Date Smoking Tobacco: Never Assessed Comments Unknown Sex and Gender Information Value Date Recorded Sex Assigned at Not on file Legal Sex Female 6:55 AM PHOTONICS TECHNICIAN Gender Identity Female 07/23/2020 8:34 PM PHOTONICS TECHNICIAN Sexual Orientation Straight 07/23/2020 8: 34 PM PHOTONICS TECHNICIAN documented as of this encounter Plan [...] documented as of this encounter Care Teams Electrical Journeyman Relationship Specialty Start Date End Date Chris Mahmood DO [address] [place] [address] PCP - General Family Medicine 07/05/21 10/04/21 No, Physician PCP - General 10/15/21 10/23/21 Shruthi Modi MD [address] [facility] [place] [address] PCP - General Family Practice 10/24/21 Fabrizio Thomason Jr., MD Medical Oncologist/Hematologis t Medical Oncology 03/02/21 Dmitry Laguna MD [address] [facility] [place] [address] Referring Physician Endocrinology Diabetes & Metabolism 05/21/23 documented as of this encounter
--- OUTSIDE RECORDS SUMMARY | 2024-09-30 16:30 | XMS_ITS | Encounter Summary ---
Author Organization [facility] Address [address] [place] [address] Care Team Providers Care Shearer Screen Measurer And Trimmer Name Role Phone Cornell Bingham MD Unavailable [phone] Shruthi Modi MD Primary Care Provider [phone] David Beltran DO Unavailable [phone] Xiomara Hernandez NP Unavailable [phone] Domingo Elizabeth MD Unavailable [phone] Dmitry Laguna MD Unavailable Unavailable Reason for Visit * Reason Onset Date Comments Other 04/29/2023 Encounter Details Date Type Department Care Team (Late st Contact Info) Description 04/29/2023 Telephone [facility] Family Medicine [facility] [address] [place] [address] Shruthi Modi MD [address] [place] [address] Other Social History Tobacco Use Types Packs/Day [...] declined 09/01/2022 How often do you attend scientologist or restorationist serv ices? Patient declined 09/01/2022 Do you belong to any clubs o r organizations such as scientologist groups, unions, fraternal or athletic groups, or [...] Recorded Patient Health Questionnaire-2 Score 1 01/29/2023 [facility] [place] of Occupat ional Health - Occupational Stress [...] place to sleep or slept in a fdc (including now)? No 09/01/2022 Comments No Sex and Gender Information Value Date Recorded Sex Assigned at Female 09/01/2024 3:25 PM BEVEL POLISHER Legal Sex Female 10:56 PM CDT Gender Identity Female 09/04/2021 12:32 PM BEVEL POLISHER Sexual Orientation Straight 09/04/2021 12 :32 PM BEVEL POLISHER documented as of this encounter Functional Status * RETIRED Are you deaf or do you have serious difficulty hearing Answer Date of Assessment Author Status No 08/29/2022 3:53 PM BEVEL POLISHER Activ e * RETIRED Are you blind or do you have serious difficulty seeing, even when wearing glasses? Answer Date of Assessment Author Status No 08/29/2022 3:53 PM BEVEL POLISHER Activ e * Do you have serious difficulty walking or climbing stairs? Answer Date of Assessment Author Status No 08/29/2022 3:53 PM BEVEL POLISHER Kathy Ellis RN Active * Do you [...] encounter Progress Notes * Huong Castro - 04/29/2023 11:23 AM CDT Pt called and said she has not heard from Dr. Ruiz, gastroligist. They told her they did not knowwhen he would be starting. She Would like to know what she should do. documented in this encounter Plan of Treatment Upcoming Encounters Date Type Department Care Team (Late st Contact Info) Description 10/01/2024 8:45 AM BEVEL POLISHER Appointment [facility] [place]patient [place] [address] [place] [address] Orlando Devries, WELLNESS COACH [address] [facility] [place] [address] Terese Braga OTR 1 [place] [address] 11/04/2024 9:00 AM CDT Office Visit [facility]ialty Care - [facility] 3 [facility] [address] [place] [address] Domingo Elizabeth MD 3 [facility] [address] [place] [address] 11/09/2024 1:15 PM CDT Office Visit [facility] THREE [facility], [address] [place] [address] Radha Valente FNP 3 [facility] [address] [place] [address] documented as of this encounter Goals Goal [...] Rule Out 09/25/2023 09/25/2023 09/25/2023 2:02 PM BEVEL POLISHER COVID-19 Rule Out 05/26/2024 05/26/2024 05/26/2024 1:58 PM CDT Assessment Noted Time PHQ-9 Depression Total Score: 15 02/04/2 022 2:20 PM CDT documented as of this encounter Care Teams Shearer Screen Measurer And Trimmer Relationship Specialty Start Date End Date Shruthi Modi MD [address] [place] [address] PCP - General FAMILY PRACTICE 10/18/21 Cornell Bingham MD Three [facility]. [address] [place] [address] Bogard Applications Developer CARDIOVASCULAR DISEASE 03/01/19 David Beltran DO [address] [place] [address] [address] [place] [address] Consulting Physician INTERNAL MEDICINE 07/04/22 Xiomara Hernandez NP [address] [place] [address], [address] [place] [address] NURSE PRACTITIONER GERONTOLOGY 07/04/22 Domingo Elizabeth MD [address] [address] Consulting Physician Internal Medicine Pulmonary Disease 07/04/22 Dmitry Laguna MD [address] [address] Consulting Physician ENDOCRINOLOGY 07/04/22 documented as of this encounter
--- OUTSIDE RECORDS SUMMARY | 2024-09-30 16:30 | XMS_ITS | Encounter Summary ---
Author Organization [facility] Address [facility] [place] [address] Care Team Providers Care Flakeboard Line Tender Name Role Phone Cornell Bingham MD Unavailable [phone] Shruthi Modi MD Primary Care Provider [phone] David Beltran DO Unavailable [phone] Xiomara Hernandez NP Unavailable [phone] Domingo Elizabeth MD Unavailable [phone] Dmitry Laguna MD Unavailable Unavailable Encounter Details Date Type Department Care Team (Late st Contact Info) Description 06/26/2023 Ginx Message Enc [facility] THREE [facility], [address] [id number] Cornell Bingham MD Three [facility]. [facility] [address] [place], [place] [address] surgery clearance Social History Tobacco Use Types Packs/Day [...] declined 09/01/2022 How often do you attend congregational or presybeterian serv ices? Patient declined 09/01/2022 Do you belong to any clubs o r organizations such as congregational groups, unions, fraternal or athletic groups, or [...] Recorded Patient Health Questionnaire-2 Score 6 05/12/2023 [facility] [place] of Occupat ional Health - Occupational Stress [...] Sex Assigned at Female 09/01/2024 3:25 PM CRYOGENICS ENGINEER Legal Sex Female 10:56 PM CDT Gender Identity Female 09/04/2021 12:32 PM CRYOGENICS ENGINEER Sexual Orientation Straight 09/04/2021 12 :32 PM CRYOGENICS ENGINEER documented as of this encounter Functional Status * RETIRED Are you deaf or do you have serious difficulty hearing Answer Date of Assessment Author Status No 08/29/2022 3:53 PM CRYOGENICS ENGINEER Activ e * RETIRED Are you blind or do you have serious difficulty seeing, even when wearing glasses? Answer Date of Assessment Author Status No 08/29/2022 3:53 PM CRYOGENICS ENGINEER Activ e * Do you have serious difficulty walking or climbing stairs? Answer Date of Assessment Author Status No 08/29/2022 3:53 PM CRYOGENICS ENGINEER Kathy Ellis RN Active * Do you have difficulty dressing or bathing? Answer Date of Assessment Author Status No 08/29/2022 3:53 PM Kathy Carballo RN Active * Because of a physical, mental, or emotional condition, do you have difficulty doing errands alone such as visiting a doctor's office or shopping? Answer Date of Assessment Author Status No 08/29/2022 3:53 PM CRYOGENICS ENGINEER Rhonda, Kathy A, RN Active documented as of this encounter Mental Status * Because of a physical, mental, or emotional condition, do you have serious difficulty concentrating, remembering, or making decisions? Answer Entry Date Author Status No 08/29/2022 3:53 PM CRYOGENICS ENGINEER Kathy Ellis RN Active documented in this encounter Progress Notes * Maryanne Burdick RN - 06/26/2023 2:36 PM CST . GENICS ENGINEER documented in this encounter Plan of Treatment Upcoming Encounters Date Type Department Care Team (Late st Contact Info) Description 10/01/2024 8:45 AM CRYOGENICS ENGINEER Appointment [facility] Outpatient [place] [address] Orlando Devries NP [address] [place] [address]. [place] [address] Terese Braga, OTR 1 [place] [address] 11/04/2024 9:00 AM CDT Office Visit [facility] - [facility] 3 [facility] [place] [address] Domingo Elizabeth MD 3 [facility] [address] [place] [address] 11/09/2024 1:15 PM CDT Office Visit [facility] THREE [facility], [address] [place] [address] Radha Valente FNP 3 [facility] [address] [place], [place] [address] documented as of this encounter Goals Goal [...] Rule Out 09/25/2023 09/25/2023 09/25/2023 2:02 PM CRYOGENICS ENGINEER COVID-19 Rule Out 05/26/2024 05/26/2024 05/26/2024 1:58 PM CDT Assessment Noted Time PHQ-9 Depression Total Score: 24 023 9:34 AM CDT documented as of this encounter Care Teams Flakeboard Line Tender Relationship Specialty Start Date End Date Shruthi Modi MD [address] [place] [address] PCP - General FAMILY PRACTICE 10/18/21 Cornell Bingham MD Three [facility]. [address] [place] [address] [place] Assistant Director Of Residence Life CARDIOVASCULAR DISEASE 03/01/19 David Beltran DO [address] [place] [address] [address] [place] [id number] Consulting Physician INTERNAL MEDICINE 07/04/22 Xiomara Hernandez, OBSTETRICIAN [address] [place] [address], [address] [place] [address] NURSE PRACTITIONER GERONTOLOGY 07/04/22 Domingo Elizabeth MD 3 [facility] [address] [place] [address] Consulting Physician Internal Medicine Pulmonary Disease 07/04/22 Dmitry Laguna MD [address] [address] Consulting Physician ENDOCRINOLOGY 07/04/22 documented as of this encounter
--- OUTSIDE RECORDS SUMMARY | 2024-09-30 16:30 | XMS_ITS | Encounter Summary ---
Author Organization [facility] Address [facility] [place] [address] Care Team Providers Care Recreation Superintendent Name Role Phone Cornell Bingham MD Unavailable [phone] Shruthi Modi MD Primary Care Provider [phone] David Beltran DO Unavailable [phone] Xiomara Hernandez NP Unavailable [phone] Domingo Elizabeth MD Unavailable [phone] Dmitry Laguna MD Unavailable Unavailable Encounter Details Date Type Department Care Team (Late st Contact Info) Description 12/07/2023 NaviExpertt Message Enc [facility] Family Medicine [facility] [address] [place] [address] Shruthi Modi MD [facility] [place] [address] UTI Social History Tobacco Use Types Packs/Day Years [...] declined 09/01/2022 How often do you attend baptist or roman catholic serv ices? Patient declined 09/01/2022 Do you belong to any clubs o r organizations such as baptist groups, unions, fraternal or athletic groups, or [...] Recorded Patient Health Questionnaire-2 Score 0 11/24/2023 [facility] [place] of Occupat ional Health - Occupational Stress [...] Sex Assigned at Female 09/01/2024 3:25 PM CLINICAL REVIEW SPECIALIST Legal Sex Female 10:56 PM CDT Gender Identity Female 09/04/2021 12:32 PM CLINICAL REVIEW SPECIALIST Sexual Orientation Straight 09/04/2021 12 :32 PM CLINICAL REVIEW SPECIALIST documented as of this encounter Functional Status * RETIRED Are you deaf or do you have serious difficulty hearing Answer Date of Assessment Author Status No 08/29/2022 3:53 PM CLINICAL REVIEW SPECIALIST Activ e * RETIRED Are you blind or do you have serious difficulty seeing, even when wearing glasses? Answer Date of Assessment Author Status No 08/29/2022 3:53 PM CLINICAL REVIEW SPECIALIST Activ e * Do you have serious difficulty walking or climbing stairs? Answer Date of Assessment Author Status No 08/29/2022 3:53 PM CLINICAL REVIEW SPECIALIST Kathy Ellis RN Active * Do you have difficulty dressing or bathing? Answer Date of Assessment Author Status No 08/29/2022 3:53 PM CLINICAL REVIEW SPECIALIST Kathy Ellis RN Active * Because of a physical, mental, or emotional condition, do you have difficulty doing errands alone such as visiting a doctor's office or shopping? Answer Date of Assessment Author Status No 08/29/2022 3:53 PM CLINICAL REVIEW SPECIALIST Kathy Ellis RN Active documented as of this encounter Mental Status * Because of a physical, mental, or emotional condition, do you have serious difficulty concentrating, remembering, or making decisions? Answer Entry Date Author Status No 08/29/2022 3:53 PM CLINICAL REVIEW SPECIALIST Kathy Ellis RN Active documented in this encounter Plan of Treatment Upcoming Encounters Date Type Department Care Team (Late st Contact Info) Description 10/01/2024 8:45 AM CLINICAL REVIEW SPECIALIST Appointment [facility] [place]patient [place] [address] Orlando Devries NP [address] [facility] [place] [place] [address] Terese Braga OTR 1 [place] [address] 11/04/2024 9:00 AM CDT Office Visit [facility] Group Multispecialty Care - [facility] 3 [facility] [address] [place] [address] Domingo Elizabeth MD 3 [facility] [address] [place] [address] 11/09/2024 1:15 PM CDT Office Visit [facility] THREE [facility], [address] [place] [address] Radha Valente FNP 3 [facility] [address] [place], [place] [address] documented as of this encounter Goals Goal [...] documented as of this encounter Care Teams Recreation Superintendent Relationship Specialty Start Date End Date Shruthi Modi MD [address] [place] [address] PCP - General FAMILY PRACTICE 10/18/21 Cornell Bingham MD Three [facility]. [address] [place] [address] [employer] Rehabilitation Assistant CARDIOVASCULAR DISEASE 03/01/19 David Beltran DO [address] [place] [address] [address] [place] [address] Consulting Physician INTERNAL MEDICINE 07/04/22 Xiomara Hernandez PIECE WORKER [address] [place] [address], [address] [place] [address] NURSE PRACTITIONER GERONTOLOGY 07/04/22 Domingo Elizabeth MD 3 [facility] [address] [place] [address] Consulting Physician Internal Medicine Pulmonary Disease 07/04/22 Dmitry Laguna MD 3 [facility] [address] [place] [address] Consulting Physician ENDOCRINOLOGY 07/04/22 documented as of this encounter
--- OUTSIDE RECORDS SUMMARY | 2024-09-30 16:30 | XMS_ITS | Encounter Summary ---
Author Organization [facility] Address [address] [place] [address] Care Team Providers Care It Infrastructure Architect Name Role Phone Cornell Bingham MD Unavailable [phone] Shruthi Modi MD Primary Care Provider [phone] David Beltran DO Unavailable [phone] Xiomara Hernandez NP Unavailable [phone] Domingo Elizabeth MD Unavailable [phone] Dmitry Laguna MD Unavailable Unavailable Reason for Referral * Consultation (Urgent) - Closed Specialty Diagnoses / Procedures Referred By Contac t Referred To Contact GASTROENTEROLOGY Diagnoses Nausea and vomiting, unspecified vomiting type Shruthi Modi MD [address] [place] [address] Phone: tel: fax: [facility] [address] [place] [address] Phone: tel: fax: Referral ID Status Reason Start Date Expiration Date Visits Re quested Visits Authorized [id number] Closed 05/01/2023 05/01/2024 99 99 Encounter Details Date Type Department Care Team (Late st Contact Info) Description 04/30/2023 MyChart Message Enc [facility] Family Medicine [facility] [address] [place] [address] Shruthi Modi MD [address] [place] [address] GI doctor Social History Tobacco Use Types Packs/Day [...] often do you attend oriental orthodox or jainism serv ices? Patient declined 09/01/2022 Do you [...] Recorded Patient Health Questionnaire-2 Score 1 01/29/2023 [facility] [place] of Occupat ional Health - Occupational Stress [...] place to sleep or slept in a penitentiary (including now)? No 09/01/2022 Comments No Sex and Gender Information Value Date Recorded Sex Assigned at Female 09/01/2024 3:25 PM ACADEMIC ASSISTANT Legal Sex Female 10:56 PM CDT Gender Identity Female 09/04/2021 12:32 PM ACADEMIC ASSISTANT Sexual Orientation Straight 09/04/2021 12 :32 PM ACADEMIC ASSISTANT documented as of this encounter Functional Status * RETIRED Are you deaf or do you have serious difficulty hearing Answer Date of Assessment Author Status No 08/29/2022 3:53 PM ACADEMIC ASSISTANT Activ e * RETIRED Are you blind or do you have serious difficulty seeing, even when wearing glasses? Answer Date of Assessment Author Status No 08/29/2022 3:53 PM ACADEMIC ASSISTANT Activ e * Do you have serious difficulty walking or climbing stairs? Answer Date of Assessment Author Status No 08/29/2022 3:53 PM Kathy Carballo RN Active * Do you have difficulty [...] Progress Notes * Shruthi Modi MD - 05/01/2023 2:17 PM CDT New external GI referral placed. Thanks! ~Dr Rodriguez documented in this encounter Plan of Treatment Upcoming Encounters Date Type Department Care Team (Late st Contact Info) Description 10/01/2024 8:45 AM ACADEMIC ASSISTANT Appointment [facility] [place] [address] [place] [address] Orlando Devries, JOHN [address] [facility] [place] [address] Terese Braga OTR 1 [place] [address] 11/04/2024 9:00 AM CDT Office Visit [facility] Multispecialty Care - [facility] 3 [facility] [address] [place] [address] Domingo Elizabeth MD 3 [facility] [address] [place] [address] 11/09/2024 1:15 PM CDT Office Visit [facility] THREE [facility], [address] [place] [address] Radha Valente FNP 3 [facility] [address] [place], [place] [id number] Scheduled Referrals Name Type Priority Associated Diagnoses Orde r Schedule Ambulatory referral to Gastroenterology (OTHER) Referral Routine Nausea and vomiting, unspecified vomiting type Ordered: 05/01/2023 documented as of this encounter Goals Goal Patient Goal Type Associated Problems Recent Progress Patient-Stated? Author Health - patient able to perform ADLs independently Lifestyle No Scott Dos Santos, RN Medications - able to self-administer medications Lifestyle No Scott Dos Santos, RN documented as of this encounter Visit Diagnoses Diagnosis Nausea and vomiting, unspecified vomiting type- Primary documented in this encounter Additional Health Concerns Infection Onset Date Last Indicated Resolved Time COVID-19 Rule Out 09/25/2023 09/25/2023 09/25/2023 2:02 PM ACADEMIC ASSISTANT COVID-19 Rule Out 05/26/2024 05/26/2024 05/26/2024 1:58 PM CDT Assessment Noted Time PHQ-9 Depression Total Score: 15 022 2:20 PM CDT documented as of this encounter Care Teams It Infrastructure Architect Relationship Specialty Start Date End Date Shruthi Modi MD [address] [place] [address] PCP - General FAMILY PRACTICE 10/18/21 Cornell Bingham MD Three [facility]. [address] [place] [address] [place] [employer] CARDIOVASCULAR DISEASE 03/01/19 David Beltran DO [address] [place] [address] [address] [place] [address] Consulting Physician INTERNAL MEDICINE 07/04/22 Xiomara Hernandez, IMMIGRATION JUDGE [address] [place] [address], [address] [place] [address] NURSE PRACTITIONER GERONTOLOGY 07/04/22 Domingo Elizabeth MD 3 [facility] [address] [place] [address] Consulting Physician Internal Medicine Pulmonary Disease 07/04/22 Dmitry Laguna MD 3 [facility] [address] [place] [address] Consulting Physician ENDOCRINOLOGY 07/04/22 documented as of this encounter
--- OUTSIDE RECORDS SUMMARY | 2024-09-30 16:30 | XMS_ITS | Encounter Summary ---
Author Organization [facility] Address [address] [place] [address] Care Team Providers Care Electrical Maintenance Supervisor Name Role Phone Cornell iBngham MD Unavailable [phone] Shruthi Modi MD Primary Care Provider [phone] David Beltran DO Unavailable [phone] Xiomara Hernandez NP Unavailable [phone] Domingo Elizabeth MD Unavailable [phone] Dmityr Laguna MD Unavailable Unavailable Encounter Details Date Type Department Care Team (Late st Contact Info) Description 05/08/2023 MyCGrabhouset Message Enc [facility] Medical Group Family Medicine [facility] [address] [place] [address] Shruthi Modi MD [facility] [place] [address] Bloodwork Social History Tobacco Use Types Packs/Day Years [...] declined 09/01/2022 How often do you attend yazidism or protestant serv ices? Patient declined 09/01/2022 Do you belong to any clubs o r organizations such as yazidism groups, unions, fraternal or athletic groups, or [...] Recorded Patient Health Questionnaire-2 Score 6 05/12/2023 [facility] [employer] [facility] [place] of Occupat ional Health - Occupational Stress [...] Sex Assigned at Female 09/01/2024 3:25 PM PILOT PLANT OPERATOR Legal Sex Female 10:56 PM CDT Gender Identity Female 09/04/2021 12:32 PM PILOT PLANT OPERATOR Sexual Orientation Straight 09/04/2021 12 :32 PM PILOT PLANT OPERATOR documented as of this encounter Functional Status * RETIRED Are you deaf or do you have serious difficulty hearing Answer Date of Assessment Author Status No 08/29/2022 3:53 PM PILOT PLANT OPERATOR Activ e * RETIRED Are you blind or do you have serious difficulty seeing, even when wearing glasses? Answer Date of Assessment Author Status No 08/29/2022 3:53 PM PILOT PLANT OPERATOR Activ e * Do you have serious difficulty walking or climbing stairs? Answer Date of Assessment Author Status No 08/29/2022 3:53 PM PILOT PLANT OPERATOR Kathy Ellis RN Active * Do you have difficulty dressing or bathing? Answer Date of Assessment Author Status No 08/29/2022 3:53 PM Kathy Carballo RN Active * Because of a physical, mental, or emotional condition, do you have difficulty doing errands alone such as visiting a doctor's office or shopping? Answer Date of Assessment Author Status No 08/29/2022 3:53 PM PILOT PLANT OPERATOR Kathy Ellis RN Active documented as of this encounter Mental Status * Because of a physical, mental, or emotional condition, do you have serious difficulty concentrating, remembering, or making decisions? Answer Entry Date Author Status No 08/29/2022 3:53 PM PILOT PLANT OPERATOR Kathy Ellis RN Active documented in this encounter Plan of Treatment Upcoming Encounters Date Type Department Care Team (Late st Contact Info) Description 10/01/2024 8:45 AM PILOT PLANT OPERATOR Appointment [facility] [place] [address] Orlando Devries NP [address] [facility] [place] [address] Terese Braga, ARMANDO [address] [place] [address] 11/04/2024 9:00 AM CDT Office Visit [facility] Medical Group [facility] [address] [facility] [address] [place] [address] Domingo Elizabeth MD [address] [facility] [address] [place] [address] 11/09/2024 1:15 PM CDT Office Visit [facility] THREE [facility], [address] [place] [address] Radha Valente FNP 3 [facility] [address] [place], [place] [address] documented as of this encounter Goals Goal [...] Rule Out 09/25/2023 09/25/2023 09/25/2023 2:02 PM PILOT PLANT OPERATOR COVID-19 Rule Out 05/26/2024 05/26/2024 05/26/2024 1:58 PM CDT Assessment Noted Time PHQ-9 Depression Total Score: 15 022 2:20 PM CDT documented as of this encounter Care Teams Electrical Maintenance Supervisor Relationship Specialty Start Date End Date Shruthi Modi MD [address] [place] [address] PCP - General FAMILY PRACTICE 10/18/21 Cornell Bingham MD Three [facility]. [address] [place] [address] [place] Boat Diesel Motor Mechanic CARDIOVASCULAR DISEASE 03/01/19 David Beltran DO [address] [place] [address] [address] [place] [address] Consulting Physician INTERNAL MEDICINE 07/04/22 Xiomara Hernandez NP [address] [place] [address], [address] [place] [address] NURSE PRACTITIONER GERONTOLOGY 07/04/22 Domingo Elizabeth MD [address] [facility] [address] [place] [address] Consulting Physician Internal Medicine Pulmonary Disease 07/04/22 Dmitry Laguna MD 3 [facility] [address] [place] [address] Consulting Physician ENDOCRINOLOGY 07/04/22 documented as of this encounter
--- OUTSIDE RECORDS SUMMARY | 2024-09-30 16:30 | XMS_ITS | Encounter Summary ---
Author Organization [facility] Address [address] [place] [address] Care Team Providers Care Instructional Assistant Name Role Phone Cornell Bingham MD Unavailable [phone] Shruthi Modi MD Primary Care Provider [phone] David Beltran DO Unavailable [phone] Xiomara Hernandez NP Unavailable [phone] Domingo Elizabeth MD Unavailable [phone] Dmitry Laguna MD Unavailable Unavailable Encounter Details Date Type Department Care Team (Late st Contact Info) Description 02/15/2023 MyCDiversity Marketplacet Message Enc [facility] Medical Group Family Medicine [facility] [address] [place] [address] Shruthi Modi MD [facility] [place] [address] Vision Social History Tobacco Use Types Packs/Day Years [...] How often do you attend buddhism or mosque serv ices? Patient declined 09/01/2022 Do you [...] Recorded Patient Health Questionnaire-2 Score 1 01/29/2023 [facility] [place] of Occupat ional Health - Occupational Stress [...] Sex Assigned at Female 09/01/2024 3:25 PM CREPE MACHINE OPERATOR Legal Sex Female 10:56 PM CDT Gender Identity Female 09/04/2021 12:32 PM CREPE MACHINE OPERATOR Sexual Orientation Straight 09/04/2021 12 :32 PM CREPE MACHINE OPERATOR COVID-19 Exposure Response Date Recorded [...] Assessment Author Status No 08/29/2022 3:53 PM CREPE MACHINE OPERATOR Activ e * RETIRED Are you blind or do you have serious difficulty seeing, even when wearing glasses? Answer Date of Assessment Author Status No 08/29/2022 3:53 PM CREPE MACHINE OPERATOR Activ e * Do you have serious difficulty walking or climbing stairs? Answer Date of Assessment Author Status No 08/29/2022 3:53 PM CREPE MACHINE OPERATOR Kathy Ellis RN Active * Do you have difficulty dressing or bathing? Answer Date of Assessment Author Status No 08/29/2022 3:53 PM CREPE MACHINE OPERATOR Kathy Ellis RN Active * Because of a physical, mental, or emotional condition, do you have difficulty doing errands alone such as visiting a doctor's office or shopping? Answer Date of Assessment Author Status No 08/29/2022 3:53 PM CREPE MACHINE OPERATOR Kathy Ellis RN Active documented as of this encounter Mental Status * Because of a physical, mental, or emotional condition, do you have serious difficulty concentrating, remembering, or making decisions? Answer Entry Date Author Status No 08/29/2022 3:53 PM CREPE MACHINE OPERATOR Kathy Ellis RN Active documented in this encounter Plan of Treatment Upcoming Encounters Date Type Department Care Team (Late st Contact Info) Description 10/01/2024 8:45 AM CREPE MACHINE OPERATOR Appointment [facility] [place] [address] Orlando Devries NP [address] [place] [address]. [place] [address] Terese Braga OTR 1 [place] [address] 11/04/2024 9:00 AM CDT Office Visit [facility] Medical Group Multispecialty Care - [facility] 3 [facility] [place] [address] Domingo Elizabeth MD 3 [facility] [address] [place] [address] 11/09/2024 1:15 PM CDT Office Visit [facility] THREE [facility], [address] [place] [address] Radha Valente FNP 3 [facility] [address] [place] [address] documented as of this encounter Goals Goal [...] Rule Out 09/25/2023 09/25/2023 09/25/2023 2:02 PM CREPE MACHINE OPERATOR COVID-19 Rule Out 05/26/2024 05/26/2024 05/26/2024 1:58 PM CDT Assessment Noted Time PHQ-9 Depression Total Score: 15 022 2:20 PM CDT documented as of this encounter Care Teams Instructional Assistant Relationship Specialty Start Date End Date Shruthi Modi MD [address] [place] [address] PCP - General FAMILY PRACTICE 10/18/21 Cornell Bingham MD Three [facility]. [facility] [address] [place] [address] [place] Car Body Mechanic CARDIOVASCULAR DISEASE 03/01/19 David Beltran DO [address] [place] [address] [address] [place] [address] Consulting Physician INTERNAL MEDICINE 07/04/22 Xiomara Hernandez NP [address] [place] [address], [address] [place] [address] NURSE PRACTITIONER GERONTOLOGY 07/04/22 Domingo Elizabeth MD 3 [facility] [address] [place] [address] Consulting Physician Internal Medicine Pulmonary Disease 07/04/22 Dmitry Laguna MD [address] [place] [address] Consulting Physician ENDOCRINOLOGY 07/04/22 documented as of this encounter
--- OUTSIDE RECORDS SUMMARY | 2024-09-30 16:30 | XMS_ITS | Encounter Summary ---
Author Organization [facility] Address [address] [place] [address] Care Team Providers Care Power Cleaner Operator Name Role Phone Cornell Bingham MD Unavailable [phone] Shruthi Modi MD Primary Care Provider [phone] David Beltran DO Unavailable [phone] Xiomara Hernandez NP Unavailable [phone] Domingo Elizabeth MD Unavailable [phone] Dmitry Laguna MD Unavailable Unavailable Encounter Details Date Type Department Care Team (Latest Contact Info) Description 09/21/2024 Scan HEALTH INFO SRVCS Scanned, Doc Med Group Social History Tobacco Use Types Packs/Day Years [...] declined 09/01/2022 How often do you attend latter day or uatsdin serv ices? Patient declined 09/01/2022 Do you belong to any clubs o r organizations such as latter day groups, unions, fraternal or athletic groups, or [...] Recorded Patient Health Questionnaire-2 Score 2 09/28/2024 [facility] of Occupat ional Health - Occupational [...] place to sleep or slept in a long-term (including now)? No 09/01/2022 Comments No Sex and Gender Information Value Date Recorded Sex Assigned at Female 09/01/2024 3:25 PM OIL FIELD EQUIPMENT MECHANIC SUPERVISOR Legal Sex Female 10:56 PM CDT Gender Identity Female 09/04/2021 12:32 PM OIL FIELD EQUIPMENT MECHANIC SUPERVISOR Sexual Orientation Straight 09/04/2021 12 :32 PM OIL FIELD EQUIPMENT MECHANIC SUPERVISOR documented as of this encounter Functional Status * RETIRED Are you deaf or do you have serious difficulty hearing Answer Date of Assessment Author Status No 08/29/2022 3:53 PM OIL FIELD EQUIPMENT MECHANIC SUPERVISOR Activ e * RETIRED Are you blind or do you have serious difficulty seeing, even when wearing glasses? Answer Date of Assessment Author Status No 08/29/2022 3:53 PM OIL FIELD EQUIPMENT MECHANIC SUPERVISOR Activ e * Do you have serious difficulty walking or climbing stairs? Answer Date of Assessment Author Status No 08/29/2022 3:53 PM OIL FIELD EQUIPMENT MECHANIC SUPERVISOR Kathy Ellis RN Active * Do [...] Date Author Status No 08/29/2022 3:53 PM OIL FIELD EQUIPMENT MECHANIC SUPERVISOR Rhonda, Kathy A, RN Active documented in this encounter Plan of Treatment Upcoming Encounters Date Type Department Care Team (Late st Contact Info) Description 10/01/2024 8:45 AM OIL FIELD EQUIPMENT MECHANIC SUPERVISOR Appointment [facility] Outpatient Therapy THREE [facility] [place] [address] Orlando Devries, CREDIT COMPLIANCE OFFICER [address] [place] [address] Terese Braga, OTR 1 [place] [address] 11/04/2024 9:00 AM CDT Office Visit [facility] Medical Group Multispecialty Care - [facility] 3 [facility] [place] [address] Domingo Elizabeth MD 3 [facility] [address] [place] [address] 11/09/2024 1:15 PM CDT Office Visit [facility] THREE [facility], [address] [place], [place] [address] Radha Valente FNP 3 [facility] [address] [place], [place] [address] documented as of this encounter Goals Goal [...] Depression Total Score: 10 025 2:32 PM OIL FIELD EQUIPMENT MECHANIC SUPERVISOR documented as of this encounter Care Teams Power Cleaner Operator Relationship Specialty Start Date End Date Shruthi Modi MD [address] [place] [address] PCP - General FAMILY PRACTICE 10/18/21 Cornell Bingham MD [address] [place] [address] [place] Field Professional CARDIOVASCULAR DISEASE 03/01/19 David Beltran DO [address] [place] [address] [address] [place] [address] Consulting Physician INTERNAL MEDICINE 07/04/22 Xiomara Hernandez NP [address] [place] [address], [address] [place] [address] NURSE PRACTITIONER GERONTOLOGY 07/04/22 Domingo Elizabeth MD [address] [place] [address] Consulting Physician Internal Medicine Pulmonary Disease 07/04/22 Dmitry Laguna MD [address] [place] [address] Consulting Physician ENDOCRINOLOGY 07/04/22 documented as of this encounter
--- OUTSIDE RECORDS SUMMARY | 2024-09-30 16:30 | XMS_ITS | Encounter Summary ---
Author Organization [facility] Address [address] [place] [address] Care Team Providers Care Pickle Sorter Name Role Phone Cornell Bingham MD Unavailable [phone] Chris Mahmood DO Primary Care Provider [phone] Fabrizio Thomason MD Unavailable [phone] Shruthi Modi MD Primary Care Provider [phone] David Beltran DO Unavailable [phone] Xiomara Hernandez NP Unavailable [phone] Domingo Elizabeth MD Unavailable [phone] Dmitry Laguna MD Unavailable Unavailable Encounter Details Date Type Department Care Team (Late st Contact Info) Description 10/11/2021 KG [employer] Message Enc [employer] [facility] DEPARTMENT [facility] [place] [address] Fabrizio Thomason MD [address] [address] Blood test Social History Tobacco Use Types Packs/Day Years [...] Sex Assigned at Female 09/01/2024 3:25 PM VENEER SHEET REPAIRER Legal Sex Female 10:56 PM CDT Gender Identity Female 09/04/2021 12:32 PM VENEER SHEET REPAIRER Sexual Orientation Straight 09/04/2021 12 :32 PM VENEER SHEET REPAIRER documented as of this encounter Functional Status * RETIRED Are you deaf or do you have serious difficulty hearing Answer Date of Assessment Author Status No 07/09/2020 8:09 AM VENEER SHEET REPAIRER Activ e * RETIRED Are you blind or do you have serious difficulty seeing, even when wearing glasses? Answer Date of Assessment Author Status No 07/09/2020 8:09 AM VENEER SHEET REPAIRER Activ e * Do you have serious [...] st Contact Info) Description 10/01/2024 8:45 AM VENEER SHEET REPAIRER Appointment [facility] [place] [address] [place] [address] Orlando Devries NP [address] [facility] [place] [address] Terese Braga OTR 1 [place] [address] 11/04/2024 9:00 AM CDT Office Visit [facility] Medical Group Multispecialty Care - [facility] 3 [facility] [address] [place] [address] Domingo Elizabeth MD 3 [facility] [address] [place] [address] 11/09/2024 1:15 PM CDT Office Visit [facility] THREE [facility], [address] [place], [place] [address] Radha Valente FNP 3 [facility] [address] [place], [place] [address] documented as of this encounter Visit Diagnoses Not on filedocumented in this encounter Additional Health Concerns Infection Onset Date Last Indicated Resolved Time COVID-19 Rule Out 04/28/2022 04/28/2022 04/28/2022 1:35 PM CDT COVID-19 Rule Out 04/28/2022 04/28/2022 04/28/2022 7:46 PM CDT COVID-19 Rule Out 05/17/2022 05/17/2022 05/18/2022 6:00 PM CDT COVID-19 Rule Out 09/25/2023 09/25/2023 09/25/2023 2:02 PM VENEER SHEET REPAIRER COVID-19 Rule Out 05/26/2024 05/26/2024 05/26/2024 1:58 PM CDT Assessment Noted Time PHQ-9 Depression Total Score: 2 08/01/20 21 2:26 PM VENEER SHEET REPAIRER documented as of this encounter Care Teams Pickle Sorter Relationship Specialty Start Date End Date Chris Mahmood DO [address] [place] [address] PCP - General FAMILY PRACTICE 07/06/20 10/17/21 Shruthi Modi MD [address] [place] [address] PCP - General FAMILY PRACTICE 10/18/21 Cornell Bingham MD Three [facility]. [facility] [address] [place] [address] [place] Regrader CARDIOVASCULAR DISEASE 03/01/[address] [facility] [address] Referring Physician MEDICAL ONCOLOGY 12/06/20 07/03/22 David Beltran DO [address] [place] [address] [address] [place] [address] Consulting Physician INTERNAL MEDICINE 07/04/22 Xiomara Hernandez FILLING HAULER WEAVING [address] [place] [address], [address] [place] [address] NURSE PRACTITIONER GERONTOLOGY 07/04/22 Domingo Elizabeth MD 3 [facility] [address] [place] [address] Consulting Physician Internal Medicine Pulmonary Disease 07/04/22 Dmitry Laguna MD 3 [facility] [address] [place] [address] Consulting Physician ENDOCRINOLOGY 07/04/22 documented as of this encounter
--- OUTSIDE RECORDS SUMMARY | 2024-09-30 16:30 | XMS_ITS | Encounter Summary ---
Author Organization [facility] Address [address] [place] [address] Care Team Providers Care Manager Furniture Name Role Phone Cornell Bingham MD Unavailable [phone] Shruthi Modi MD Primary Care Provider [phone] David Beltran DO Unavailable [phone] Xioamra Hernandez NP Unavailable [phone] Domingo Elizabeth MD Unavailable [phone] Dmitry Laguna MD Unavailable Unavailable Encounter Details Date Type Department Care Team (Late st Contact Info) Description 01/06/2024 De Correspondentt Message Enc [facility] Medical Group Multispecialty Care - [facility] 3 [facility], [address] [place] [address] Farzaneh Rueda NP 3 [facility] [address] [place] [address] Blood in stool Social History Tobacco Use Types Packs/Day Years [...] How often do you attend scientologist or roman catholic serv ices? Patient declined [...] Recorded Patient Health Questionnaire-2 Score 0 11/24/2023 [facility] of Occupat ional Health - Occupational [...] Sex Assigned at Female 09/01/2024 3:25 PM ROLLER SKATES ASSEMBLER Legal Sex Female 10:56 PM CDT Gender Identity Female 09/04/2021 12:32 PM ROLLER SKATES ASSEMBLER Sexual Orientation Straight 09/04/2021 12 :32 PM ROLLER SKATES ASSEMBLER documented as of this encounter Functional Status * RETIRED Are you deaf or do you have serious difficulty hearing Answer Date of Assessment Author Status No 08/29/2022 3:53 PM ROLLER SKATES ASSEMBLER Activ e * RETIRED Are you blind or do you have serious difficulty seeing, even when wearing glasses? Answer Date of Assessment Author Status No 08/29/2022 3:53 PM ROLLER SKATES ASSEMBLER Activ e * Do you have serious difficulty walking or climbing stairs? Answer Date of Assessment Author Status No 08/29/2022 3:53 PM ROLLER SKATES ASSEMBLER Kathy Ellis RN Active * Do you have difficulty dressing or bathing? Answer Date of Assessment Author Status No 08/29/2022 3:53 PM ROLLER SKATES ASSEMBLER Kathy Ellis RN Active * Because of a physical, mental, or emotional condition, do you have difficulty doing errands alone such as visiting a doctor's office or shopping? Answer Date of Assessment Author Status No 08/29/2022 3:53 PM ROLLER SKATES ASSEMBLER Kathy Ellis RN Active documented as of this encounter Mental Status * Because of a physical, mental, or emotional condition, do you have serious difficulty concentrating, remembering, or making decisions? Answer Entry Date Author Status No 08/29/2022 3:53 PM ROLLER SKATES ASSEMBLER Kathy Ellis RN Active documented in this encounter Plan of Treatment Upcoming Encounters Date Type Department Care Team (Late st Contact Info) Description 10/01/2024 8:45 AM ROLLER SKATES ASSEMBLER Appointment [facility] [place] [address] Orlando Devries NP [address] [place] [address]. [place] [address] Terese Braga OTR 1 [place] [address] 11/04/2024 9:00 AM CDT Office Visit [facility] Medical Group Multispecialty Care - [facility] 3 [facility] [address] [facility] [place] [address] Domingo Elizabeth MD 3 [facility] [address] [place] [address] 11/09/2024 1:15 PM CDT Office Visit [facility] THREE [facility], [address] [place], [place] [address] Radha Valente FNP 3 [facility] [address] [place], [place] [address] documented as of this encounter Goals Goal [...] as of this encounter Care Teams Manager Furniture Relationship Specialty Start Date End Date Shruthi Modi MD [address] [place] [address] PCP - General FAMILY PRACTICE 10/18/21 Cornell Bingham MD Three [facility]. [facility] [address] [place] [address] [place] Director Of Reimbursement CARDIOVASCULAR DISEASE 03/01/19 David Beltran DO [address] [place] [address] [address] [place] [address] Consulting Physician INTERNAL MEDICINE 07/04/22 Xiomara Hernandez NP [address] [place] [address], [address] [place] [address] NURSE PRACTITIONER GERONTOLOGY 07/04/22 Domingo Elizabeth MD 3 [facility] [address] [place] [address] Consulting Physician Internal Medicine Pulmonary Disease 07/04/22 Dmitry Laguna MD 3 [facility] [address] [place] [address] Consulting Physician ENDOCRINOLOGY 07/04/22 documented as of this encounter
--- OUTSIDE RECORDS SUMMARY | 2024-09-30 16:30 | XMS_ITS | Clinical Summary ---
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 Drink [...] CDT): Patient is a former patient of [facility] being treated with combination migraine prophylaxis [...] Type Department Care Team Description 09/21/2024 Telephone [facility] End[facility] Metabolism and Lipid [address] [place] [address] [place] [address] Regla Gil, front end web designer Results 09/14/2024 Orders Only [facility] Obstetrical Gynecology [address] [place] [address] [place] [phone] Edmond Bruno MD 09/14/2024 Telephone [facility] Obstetrical Gynecology [address] [place] [address] [place] [phone] Edmond Bruno MD 09/08/2024 10:40 AM TITLE DEPARTMENT MANAGER Office Visit [facility] End[facility]ology Metabolism and Lipid [address] [place] [address] Bita Irby MD Type 2 diabetes mellitus with hyperglycemia, without long-term current use of insulin (HCC) (Primary Dx); Osteopenia, unspecified location; Compression fracture of lumbar vertebra, unspecified lumbar vertebral level, sequela 09/08/2024 Telephone [facility] End[facility] Metabolism and Lipid 1 [facility] [address] [place] [phone] Regla Gil RN Follow-up 08/31/2024 Telephone [facility] End[facility] Metabolism and Lipid [address] [place] [address] [place] [address] Regla Gil, DEWEY CGM 07/22/2024 1:30 PM TITLE DEPARTMENT MANAGER Procedure visit [facility] Neurology [address] [place] [address] [place] [phone] Xiomara Hernandez NP Intractable chronic migraine without aura and without status migrainosus from Last 3 Months Immunizations Name Administration Dates Next Due DTaP 12/18/2015 Influenza, Quadrivalent, Rec ombinant, Egg Free, Preservative Free, Intramuscular 06/15/2019 Influenza, Quadrivalent, Spl it, Preservative Free, Intramuscular 06/12/2022,05/17/2020,05/22/2018,05/10 Influenza, Split 06/01/2010,09/06/2005 Influenza, Trivalent, IM (MDV) 05/22/2021,2016 Influenza, Trivalent, Preser vative Free, Intramuscular 07/18/2016,07/06/2015 Influenza, Unspecified 05/17/2020,2018,05/22/2018,06/01,09/06/2005 [facility] SARS-CoV-2 Monovalent Vaccination (12+ Yrs) AVILA-READY TO [...] on file Legal Sex Female 6:55 AM TITLE DEPARTMENT MANAGER Gender Identity Female 07/23/2020 8:34 PM TITLE DEPARTMENT MANAGER Sexual Orientation Straight 07/23/2020 8: 34 PM TITLE DEPARTMENT MANAGER Obstetrics History Para Term AB IAB SAB Ectopic Multiple Livin g Live Births 4 4 4 4 Date Outcome GA Total Labor Labor/2nd/3rd Weight Sex Type Anes PTL Yolanda A1 A5 Name Clin Para Para Para Para Last Filed Vital Signs Vital Sign Reading Time Taken Comments Blood Pressure 114/75 09/08/2024 11:09 AM TITLE DEPARTMENT MANAGER Pulse 81 09/08/2024 11:09 AM TITLE DEPARTMENT MANAGER Temperature 36.5 C (97.7 F) 09/08/2024 11:09 AM TITLE DEPARTMENT MANAGER Respiratory Rate 16 06/15/2024 8:35 PM CDT Oxygen Saturation 100% 06/15/2024 8:35 PM CDT Inhaled Oxygen Concentration - - Weight 68 kg (150 lb) 09/08/2024 11:09 AM TITLE DEPARTMENT MANAGER Height 167.6 cm (5' 6 ) 09/08/2024 11:09 AM TITLE DEPARTMENT MANAGER Body Mass Index 24.21 09/08/2024 11:09 AM TITLE DEPARTMENT MANAGER Plan of Treatment Health Maintenance Due [...] Comments BOTOX INJECTION Routine 07/22/2024 1:30 PM TITLE DEPARTMENT MANAGER Intractable chronic migraine without aura and without status migrainosus EGFR STAT 06/15/2024 2:40 PM CDT DIABETIC EYE EXAM Routine 02/16/2024 2:0 5 PM CDT HEMOGLOBIN A1C Routine 11/04/2023 11:15 AM CDT Adrenal mass (HCC) Type 2 diabetes mellitus with other specified complication, unspecified whether meterman insulin use (HCC) LIPID PANEL Routine 11/04/2023 11:15 AM CDT Adrenal mass (HCC) Type 2 diabetes mellitus with other specified complication, unspecified whether long-term insulin use (HCC) ALBUMIN CREATININE RATIO, URINE Routine 11/04/2023 11:15 AM CDT Adrenal mass (HCC) Type 2 diabetes mellitus with other specified complication, unspecified whether meterman insulin use (HCC) PAP AND HIGH RISK HPV, REFLEX TO GENOTYPING Routine 06/11/2023 11:48 AM CDT Encounter for screening for malignant neoplasm of cervix COLONOSCOPY Routine 07/06/2020 SCREENING MAMMOGRAM BILATERAL W LENY Routine 12/31/2016 12:28 PM CDT from Last 3 Months or Most Recently Relevant to Health Maintenance Results * Botox Injection (07/22/2024 1:30 PM TITLE DEPARTMENT MANAGER) Narrative Ritika Treadwell - 07/22/2024 1:30 PM TITLE DEPARTMENT MANAGER Ritika Treadwell 07/23/2024 12:25 PM Botox Injection Performed by: Xiomara Hernandez NP Authorized by: Xiomara Hernandez NP [place] Protocol: Consent Given by: Patient Timeout: prior [...] Hernandez NP Authorized by: Xiomara Hernandez NP [place] Protocol: Consent Given by: Patient Timeout: prior [...] reviewed 2021. Testing performed by: [facility], [address] [place] [address], [place]., [address] Blood 06/15/2024 2:40 PM CDT 06/15/2024 2:50 PM CDT us Chris Lopez Jr., MD LAB BLOOD ORDERABLES Fi nal Result Performing Organization Address [facility]/ZIP Co de Phone Number [facility] [address] [facility] Department of Laboratories [place], [place] [phone] * Diabetic Eye Exam (02/16/2024 2:05 PM [...] ORDERABLES Final Res ult Performing Organization Address [facility]/ZIP Co de Phone Number [facility] [...] ORDERABLES Final Res ult Performing Organization Address [facility]/ZIP Co de Phone Number [facility] [...] AM CDT 11/04/2023 12:42 PM CDT Narrative [facility] - 11/04/2023 1:37 PM CDT Current interpretive data was last updated July 20, 2021. For adults ages 40-79, the ACC/AHA recommends discussing your 10-year atherosclerotic cardiovascular disease risk with your health care provider. https://www.acc.org/ASCVDApp Bita Irby MD LAB BLOOD ORDERABLES Final Res ult [facility] * Pap and High Risk HPV and Genotyping (Cytology Component) (06/11/2023 11:48 AM CDT) Endocervical (Pap test) 06/11/2023 11:48 AM CDT 06/13/2023 11:48 AM CDT Narrative PATHOLOGY [facility] - 06/17/2023 3:27 PM CDT [facility] Department of Pathology [address] [place] [address] Final Report with Addendum Note to Patients: [...] the details. Patient Name: COLIN BOYD Address: [address] [place] [address] [address] [place] [address] Gender: F : 1970 (Age: 53) Service: Location: [facility] : [id number] [facility] #: [id number] Patient Type: [facility] SPECIMEN Taken: 06/11/2023 Received: 06/13/2023 Accessioned:: 06/13/2023 Reported: 06/17/2023 Physician(s): Edmond Bruno M.D. [facility] Diagnosis: SOURCE OF SPECIMEN SCREENING THIN PREP IMAGED PAP w/ HPV: STATEMENT OF ADEQUACY - Satisfactory for evaluation; endocervical/transformation zone component present - This case was rejected by computer assisted technology and was manually screened by a clinical product manager GENERAL CATEGORIZATION: - Negative for intraepithelial lesion or malignancy LVEON Gong(ASCP)LEVON Lerma(ASCP) Report Electronically Reviewed and Signed [...] this test have been verified by the [facility] Molecular Infectious Disease laboratory. Correlate with [...] determined by the Surgical Pathology Department at [facility] as part of an ongoing cloth tester quality program and in compliance with federally [...] MD LAB CYTOLOGY ORDERABLES Final Result PATHOLOGY [facility] * Colonoscopy (07/06/2020) Anatomical Region Laterality [...] Please contact Infection Prevention. 01/16/2024 01/16/2024 Insurance Systems Maintenance Services PENDING SALE TO [facility] [facility] P[facility] Care Teams Director Of Finance Relationship Specialty Start Date End Date Shruthi Modi MD [address] [facility] [place] [address] PCP - General Family Practice 10/24/21 Fabrizio Thomason Jr., MD Medical Oncologist/Hematologis t Medical Oncology 03/02/21 Dmitry Laguna MD [address] [facility] [place] [address] Referring Physician Endocrinology Diabetes & Metabolism 05/21/23
--- OUTSIDE RECORDS SUMMARY | 2024-09-30 16:30 | XMS_ITS | Encounter Summary ---
Author Organization [facility] Address [address] [place] [address] Care Team Providers Care Patrol Sergeant Sheriff'S Office Name Role Phone Cornell Bingham MD Unavailable [phone] Shruthi Modi MD Primary Care Provider [phone] David Beltran DO Unavailable [phone] Xiomara Hernandez NP Unavailable [phone] Domingo Elizabeth MD Unavailable [phone] Dmitry Laguna MD Unavailable Unavailable Encounter Details Date Type Department Care Team (Latest Contact Info) Description 05/10/2023 [employer]t Message Enc [facility] Medical Group Multispecialty Care - [facility] [address] [facility] [place] [phone] Domingo Elizabeth MD [address] [facility] [address] [place] [address] medical question Social History Tobacco Use Types Packs/Day Years [...] declined 09/01/2022 How often do you attend pentecostal or mandaeism serv ices? Patient declined 09/01/2022 Do you belong to any clubs o r organizations such as pentecostal groups, unions, fraternal or athletic groups, or [...] Recorded Patient Health Questionnaire-2 Score 6 05/12/2023 [facility] [place] of Occupat ional Health - Occupational Stress [...] Sex Assigned at Female 09/01/2024 3:25 PM VASCULAR TECHNOLOGIST SONOGRAPHER Legal Sex Female 10:56 PM CDT Gender Identity Female 09/04/2021 12:32 PM VASCULAR TECHNOLOGIST SONOGRAPHER Sexual Orientation Straight 09/04/2021 12 :32 PM VASCULAR TECHNOLOGIST SONOGRAPHER documented as of this encounter Functional Status * RETIRED Are you deaf or do you have serious difficulty hearing Answer Date of Assessment Author Status No 08/29/2022 3:53 PM VASCULAR TECHNOLOGIST SONOGRAPHER Activ e * RETIRED Are you blind or do you have serious difficulty seeing, even when wearing glasses? Answer Date of Assessment Author Status No 08/29/2022 3:53 PM VASCULAR TECHNOLOGIST SONOGRAPHER Activ e * Do you have serious difficulty walking or climbing stairs? Answer Date of Assessment Author Status No 08/29/2022 3:53 PM VASCULAR TECHNOLOGIST SONOGRAPHER Kathy Ellis RN Active * Do you have difficulty dressing or bathing? Answer Date of Assessment Author Status No 08/29/2022 3:53 PM VASCULAR TECHNOLOGIST SONOGRAPHER Kathy Ellis RN Active * Because of a physical, mental, or emotional condition, do you have difficulty doing errands alone such as visiting a doctor's office or shopping? Answer Date of Assessment Author Status No 08/29/2022 3:53 PM VASCULAR TECHNOLOGIST SONOGRAPHER Kathy Ellis RN Active documented as of this encounter Mental Status * Because of a physical, mental, or emotional condition, do you have serious difficulty concentrating, remembering, or making decisions? Answer Entry Date Author Status No 08/29/2022 3:53 PM VASCULAR TECHNOLOGIST SONOGRAPHER Kathy Ellis RN Active documented in this encounter Plan of Treatment Upcoming Encounters Date Type Department Care Team (Late st Contact Info) Description 10/01/2024 8:45 AM VASCULAR TECHNOLOGIST SONOGRAPHER Appointment [facility] [place] [address] Orlando Devries NP [address] [place] [address]. [place] [address] Terese Braga, MAGOR [address] [place] [address] 11/04/2024 9:00 AM CDT Office Visit [facility] Medical Group Multispecialty Care - [facility] [address] [facility] [place] [phone] Domingo Elizabeth MD [address] [facility] [address] [place], [place] [address] 11/09/2024 1:15 PM CDT Office Visit [facility] THREE [facility], [address] [place], [place] [address] Radha Valente FNP 3 [facility] [address] [place], [place] [address] documented as of this encounter Goals Goal [...] Rule Out 09/25/2023 09/25/2023 09/25/2023 2:02 PM VASCULAR TECHNOLOGIST SONOGRAPHER COVID-19 Rule Out 05/26/2024 05/26/2024 05/26/2024 1:58 PM CDT Assessment Noted Time PHQ-9 Depression Total Score: 15 022 2:20 PM CDT documented as of this encounter Care Teams Patrol Sergeant Sheriff'S Office Relationship Specialty Start Date End Date Shruthi Modi MD [facility] [place] [address] PCP - General FAMILY PRACTICE 10/18/21 Cornell Bingham MD Three [facility]. [facility] [address] [place] [address] Herscher Market Reporter CARDIOVASCULAR DISEASE 03/01/19 David Beltran DO [address] [place] [phone] Consulting Physician INTERNAL MEDICINE 07/04/22 Xiomara Hernandez NP [address] [place] [address], [address] [place] [address] NURSE PRACTITIONER GERONTOLOGY 07/04/22 Domingo Elizabeth MD [address] [facility] [address] [place] [address] Consulting Physician Internal Medicine Pulmonary Disease 07/04/22 Dmitry Laguna MD 3 [facility] [address] [place] [address] Consulting Physician ENDOCRINOLOGY 07/04/22 documented as of this encounter
--- OUTSIDE RECORDS SUMMARY | 2024-09-30 16:30 | XMS_ITS | Encounter Summary ---
Author Organization [facility] Address [address] [place] [address] Care Team Providers Care [place] Consultant Name Role Phone Cornell Bingham MD Unavailable [phone] Shruthi Modi MD Primary Care Provider [phone] David Beltran DO Unavailable [phone] Xiomara Hernandez NP Unavailable [phone] Domingo Elizabeth MD Unavailable [phone] Dmitry Laguna MD Unavailable Unavailable Encounter Details Date Type Department Care Team (Late st Contact Info) Description 11/17/2022 [employer] Message Enc [facility] Medical Group Family Medicine [facility] [address] [place] [address] Shruthi Modi MD [facility] [place] [address] COVID positive Social History Tobacco Use Types Packs/Day Years [...] declined 09/01/2022 How often do you attend muslim or judaism serv ices? Patient declined 09/01/2022 Do you belong to any clubs o r organizations such as muslim groups, unions, fraternal or athletic groups, or [...] Date Recorded Patient Health Questionnaire-2 Score 0 10/02/2022 [facility] [place] of Occupat ional Health - Occupational Stress [...] place to sleep or slept in a custodial (including now)? No 09/01/2022 Comments No Sex and Gender Information Value Date Recorded Sex Assigned at Female 09/01/2024 3:25 PM PIANO AND ORGAN REFINISHER Legal Sex Female 10:56 PM CDT Gender Identity Female 09/04/2021 12:32 PM PIANO AND ORGAN REFINISHER Sexual Orientation Straight 09/04/2021 12 :32 PM PIANO AND ORGAN REFINISHER COVID-19 Exposure Response Date Recorded In the last 10 days, have yo u been in contact with someone who was confirmed or suspected to have Coronavirus/COVID-19? No / Unsure 11/12/2022 1:42 PM CDT documented as of this encounter Functional Status * RETIRED Are you deaf or do you have serious difficulty hearing Answer Date of Assessment Author Status No 08/29/2022 3:53 PM PIANO AND ORGAN REFINISHER Activ e * RETIRED Are you blind or do you have serious difficulty seeing, even when wearing glasses? Answer Date of Assessment Author Status No 08/29/2022 3:53 PM PIANO AND ORGAN REFINISHER Activ e * Do you have serious difficulty walking or climbing stairs? Answer Date of Assessment Author Status No 08/29/2022 3:53 PM PIANO AND ORGAN REFINISHER Kathy Ellis RN Active * Do you have difficulty dressing or bathing? Answer Date of Assessment Author Status No 08/29/2022 3:53 PM PIANO AND ORGAN REFINISHER Kathy Ellis RN Active * Because of [...] st Contact Info) Description 10/01/2024 8:45 AM PIANO AND ORGAN REFINISHER Appointment [facility] [place] [address] Orlando Devries NP [address] [place] [address]. [place] [address] Terese Braga OTR [address] [place] [address] 11/04/2024 9:00 AM CDT Office Visit [facility] Medical Group Multispecialty Care - [facility] [address] [facility] [place] [address] Domingo Elizabeth MD [address] [facility] [address] [place] [address] 11/09/2024 1:15 PM CDT Office Visit [facility] THREE [facility], [address] [place] [address] Radha Valente FNP 3 [facility] [address] [place] [address] documented as of this encounter Goals Goal [...] Rule Out 09/25/2023 09/25/2023 09/25/2023 2:02 PM PIANO AND ORGAN REFINISHER COVID-19 Rule Out 05/26/2024 05/26/2024 05/26/2024 1:58 PM CDT Assessment Noted Time PHQ-9 Depression Total Score: 15 022 2:20 PM CDT documented as of this encounter Care Teams [place] Consultant Relationship Specialty Start Date End Date Shruthi Modi MD [facility] [place] [address] PCP - General FAMILY PRACTICE 10/18/21 Cornell Bingham MD Three [facility]. [facility] [address] [place] [address] Jean Cigarette Roller CARDIOVASCULAR DISEASE 03/01/19 David Beltran DO [address] [place] [phone] Consulting Physician INTERNAL MEDICINE 07/04/22 Xiomara Hernandez NP [address] [place] [address], [address] [place] [address] NURSE PRACTITIONER GERONTOLOGY 07/04/22 Domingo Elizabeth MD [address] [facility] [address] [place] [address] Consulting Physician Internal Medicine Pulmonary Disease 07/04/22 Dmitry Laguna MD [address] [place] [phone] Consulting Physician ENDOCRINOLOGY 07/04/22 documented as of this encounter
--- OUTSIDE RECORDS SUMMARY | 2024-09-30 16:30 | XMS_ITS | Encounter Summary ---
Author Organization [facility] Care Team Providers Care Drugless Physician Name Role Phone Paddy Riley MD, Fabrizio Unavailable [phone] Chris Mahmood DO Primary Care Provider + No, Physician Primary Care Provider [phone] Shruthi Modi MD Primary Care Provider Dmitry Laguna MD Unavailable [phone] Encounter Details Date Type Department Care Team (Latest Contact Info) Description 12/09/2016 Orders Only [facility]INCON[facility] ProviderRay MD [address] [place] [address] Social History Tobacco Use Types Packs/Day Years Used Date Smoking Tobacco: Never Assessed Comments Unknown Sex and Gender Information Value Date Recorded Sex Assigned at Not on file Legal Sex Female 6:55 AM FOOT CASTER Gender Identity Female 07/23/2020 8:34 PM FOOT CASTER Sexual Orientation Straight 07/23/2020 8: 34 PM FOOT CASTER documented as of this encounter Plan of [...] documented as of this encounter Care Teams Drugless Physician Relationship Specialty Start Date End Date Chris Mahmood DO [address] [place] [address] PCP - General Family Medicine 07/05/21 10/04/21 No, Physician PCP - General 10/15/21 10/23/21 Shruthi Modi MD [address] [place] [address] PCP - General Family Practice 10/24/21 Fabrizio Thomason Jr., MD Medical Oncologist/Hematologis t Medical Oncology 03/02/21 Dmitry Laguna MD [address] [facility] [place] [address] Referring Physician Endocrinology Diabetes & Metabolism 05/21/23 documented as of this encounter
--- OUTSIDE RECORDS SUMMARY | 2024-09-30 16:30 | XMS_ITS | Encounter Summary ---
Author Organization [facility] Address [facility] [place] [address] Care Team Providers Care Scout Sniper Name Role Phone Cornell Binghma MD Unavailable [phone] Shruthi Modi MD Primary Care Provider [phone] David Beltran DO Unavailable [phone] Xiomara Hernandez NP Unavailable [phone] Domingo Elizabeth MD Unavailable [phone] Dmitry Laguna MD Unavailable Unavailable Encounter Details Date Type Department Care Team (Late st Contact Info) Description 08/05/2024 Causecast[employer] Message Enc [facility] Medical Group Family Medicine [facility] [address] [place] [address] Shruthi Modi MD [facility] [place] [address] Kidney infection Social History Tobacco Use Types Packs/Day Years [...] declined 09/01/2022 How often do you attend adventism or caodaism serv ices? Patient declined 09/01/2022 Do you belong to any clubs o r organizations such as adventism groups, unions, fraternal or athletic groups, or [...] Recorded Patient Health Questionnaire-2 Score 2 08/06/2024 [facility] Occupat ional Health - Occupational Stress [...] Sex Assigned at Female 09/01/2024 3:25 PM CONTRACT ASSISTANT Legal Sex Female 10:56 PM CDT Gender Identity Female 09/04/2021 12:32 PM CONTRACT ASSISTANT Sexual Orientation Straight 09/04/2021 12 :32 PM CONTRACT ASSISTANT documented as of this encounter Functional Status * RETIRED Are you deaf or do you have serious difficulty hearing Answer Date of Assessment Author Status No 08/29/2022 3:53 PM CONTRACT ASSISTANT Activ e * RETIRED Are you blind or do you have serious difficulty seeing, even when wearing glasses? Answer Date of Assessment Author Status No 08/29/2022 3:53 PM CONTRACT ASSISTANT Activ e * Do you have serious difficulty walking or climbing stairs? Answer Date of Assessment Author Status No 08/29/2022 3:53 PM CONTRACT ASSISTANT Kathy Ellis RN Active * Do you have difficulty dressing or bathing? Answer Date of Assessment Author Status No 08/29/2022 3:53 PM CONTRACT ASSISTANT Kathy Ellis RN Active * Because of a physical, mental, or emotional condition, do you have difficulty doing errands alone such as visiting a doctor's office or shopping? Answer Date of Assessment Author Status No 08/29/2022 3:53 PM CONTRACT ASSISTANT Kathy Ellis RN Active documented as of this encounter Mental Status * Because of a physical, mental, or emotional condition, do you have serious difficulty concentrating, remembering, or making decisions? Answer Entry Date Author Status No 08/29/2022 3:53 PM CONTRACT ASSISTANT Kathy Ellis RN Active documented in this encounter Progress Notes * Shruthi Modi MD - 08/06/2024 2:13 PM CST Saw pt today for VV. Thanks! ~Dr Rodriguez RACT ASSISTANT documented in this encounter Plan of Treatment Upcoming Encounters Date Type Department Care Team (Late st Contact Info) Description 10/01/2024 8:45 AM CONTRACT ASSISTANT Appointment [facility] [place]patient [place] [address] Orlando Devries NP [address] [place] [address]. [place] [address] Terese Braga OTR 1 [place] [address] 11/04/2024 9:00 AM CDT Office Visit [facility] Medical Group Multispecialty Care - [facility] 3 [facility] [address] [place] [address] Domingo Elizabeth MD 3 [facility] [address] [place] [address] 11/09/2024 1:15 PM CDT Office Visit [facility] THREE [facility], [address] [place] [address] Radha Valente FNP 3 [facility] [address] [place] [address] documented as of this encounter Goals Goal [...] documented as of this encounter Care Teams Scout Sniper Relationship Specialty Start Date End Date Shruthi Modi MD [facility] [place] [address] PCP - General FAMILY PRACTICE 10/18/21 Cornell Bingham MD Three [facility]. [facility] [address] [place] [address] Mckenna Wood Veneer Taper CARDIOVASCULAR DISEASE 03/01/19 David Beltran DO [address] [place] [phone] Consulting Physician INTERNAL MEDICINE 07/04/22 Xiomara Hernandez NP [address] [place] [address], [address] [place] [address] NURSE PRACTITIONER GERONTOLOGY 07/04/22 Domingo Elizabeth MD 3 [facility] [address] [place] [address] Consulting Physician Internal Medicine Pulmonary Disease 07/04/22 Dmitry Laguna MD 3 [facility] [address] [place] [address] Consulting Physician ENDOCRINOLOGY 07/04/22 documented as of this encounter
--- OUTSIDE RECORDS SUMMARY | 2024-09-30 16:30 | XMS_ITS | Encounter Summary ---
Author Organization [facility] Address [address] [place] [address] Care Team Providers Care Instant Printer Operator Name Role Phone Cornell Bingham MD Unavailable [phone] Chris Mahmood DO Primary Care Provider [phone] Fabrizio Thomason MD Unavailable [phone] Shruthi Modi MD Primary Care Provider [phone] David Beltran DO Unavailable [phone] Xiomara Hernandez NP Unavailable [phone] Domingo Elizabeth MD Unavailable [phone] Dmitry Laguna MD Unavailable Unavailable Encounter Details Date Type Department Care Team (Late st Contact Info) Description 10/16/2021 [employer] Message Enc [facility], [address] [address] [place] Provider chest x ray results Social History Tobacco Use Types Packs/Day Years [...] please move on to questions 3-9 0 10/18/2021 Comments No Sex and Gender Information Value Date Recorded Sex Assigned at Female 09/01/2024 3:25 PM INTELLECTUAL PROPERTY LAWYER Legal Sex Female 10:56 PM CDT Gender Identity Female 09/04/2021 12:32 PM INTELLECTUAL PROPERTY LAWYER Sexual Orientation Straight 09/04/2021 12 :32 PM INTELLECTUAL PROPERTY LAWYER COVID-19 Exposure Response Date Recorded In the last 10 days, have yo u been in contact with someone who was confirmed or suspected to have Coronavirus/COVID-19? No / Unsure 10/18/2021 2:23 PM INTELLECTUAL PROPERTY LAWYER documented as of this encounter Functional Status * RETIRED Are you deaf or do you have serious difficulty hearing Answer Date of Assessment Author Status No 07/09/2020 8:09 AM INTELLECTUAL PROPERTY LAWYER Activ e * RETIRED Are you blind or do you have serious difficulty seeing, even when wearing glasses? Answer Date of Assessment Author Status No 07/09/2020 8:09 AM INTELLECTUAL PROPERTY LAWYER Activ e * Do you have serious [...] st Contact Info) Description 10/01/2024 8:45 AM INTELLECTUAL PROPERTY LAWYER Appointment [facility] THREE [place] [address] Orlando Devries NP [address] [facility] [place] [address] Terese Braga OTR 1 [place] [address] 11/04/2024 9:00 AM CDT Office Visit [facility] Medical Group Multispecialty Care - [facility] 3 [facility] [address] [place] [phone] Domingo Elizabeth MD 3 [facility] [address] [place] [address] 11/09/2024 1:15 PM CDT Office Visit [facility] THREE [facility], [address] [place] [address] Radha Valente FNP 3 [facility] [address] [place] [address] documented as of this encounter Visit Diagnoses Not on filedocumented in this encounter Additional Health Concerns Infection Onset Date Last Indicated Resolved Time COVID-19 Rule Out 04/28/2022 04/28/2022 04/28/2022 1:35 PM CDT COVID-19 Rule Out 04/28/2022 04/28/2022 04/28/2022 7:46 PM CDT COVID-19 Rule Out 05/17/2022 05/17/2022 05/18/2022 6:00 PM CDT COVID-19 Rule Out 09/25/2023 09/25/2023 09/25/2023 2:02 PM INTELLECTUAL PROPERTY LAWYER COVID-19 Rule Out 05/26/2024 05/26/2024 05/26/2024 1:58 PM CDT Assessment Noted Time PHQ-9 Depression Total Score: 2 08/01/20 21 2:26 PM INTELLECTUAL PROPERTY LAWYER documented as of this encounter Care Teams Instant Printer Operator Relationship Specialty Start Date End Date Chris Mahmood DO [address] [place] [address] PCP - General FAMILY PRACTICE 07/06/20 10/17/21 Shruthi Modi MD [address] [place] [address] PCP - General FAMILY PRACTICE 10/18/21 Cornell Bingham MD Three [facility]. [address] [address] [place] Public Relations Representative CARDIOVASCULAR DISEASE 03/01/19 Fabrizio Thomason MD [address] [place] [address] Referring Physician MEDICAL ONCOLOGY 12/06/20 07/03/22 David Beltran DO [address] [place] [phone] Consulting Physician INTERNAL MEDICINE 07/04/22 Xiomara Hernandez CLOSING MANAGER [address] [place] [address], [address] [place] [address] NURSE PRACTITIONER GERONTOLOGY 07/04/22 Domingo Elizabeth MD 3 [facility] [address] [place] [address] Consulting Physician Internal Medicine Pulmonary Disease 07/04/22 Dmitry Laguna MD [address] [place] [address] Consulting Physician ENDOCRINOLOGY 07/04/22 documented as of this encounter
--- OUTSIDE RECORDS SUMMARY | 2024-09-30 16:30 | XMS_ITS | Encounter Summary ---
Author Organization [facility] Care Team Providers Care Seal Delivery Vehicle Officer Name Role Phone Paddy Riley MD, Fabrizio Unavailable [phone] Chris Mahmood DO Primary Care Provider + No, Physician Primary Care Provider [phone] Shruthi Modi MD Primary Care Provider Dmitry Laguna MD Unavailable [phone] Encounter Details Date Type Department Care Team (Latest Contact Info) Description 01/01/2017 Orders Only [facility] ProviderRay MD [address] [place] [address] Social History Tobacco Use Types Packs/Day Years Used Date Smoking Tobacco: Never Assessed Comments Unknown Sex and Gender Information Value Date Recorded Sex Assigned at Not on file Legal Sex Female 6:55 AM RESOURCE ECONOMIST Gender Identity Female 07/23/2020 8:34 PM RESOURCE ECONOMIST Sexual Orientation Straight 07/23/2020 8: 34 PM RESOURCE ECONOMIST documented as of this encounter Plan of [...] documented as of this encounter Care Teams Seal Delivery Vehicle Officer Relationship Specialty Start Date End Date Chris Mahmood DO [address] [place] [address] PCP - General Family Medicine 07/05/21 10/04/21 No, Physician PCP - General 10/15/21 10/23/21 Shruthi Modi MD [address] [facility] [place] [address] PCP - General Family Practice 10/24/21 Fabrizio Thomason Jr., MD Medical Oncologist/Hematologis t Medical Oncology 03/02/21 Dmitry Laguna MD [address] [facility] [place] [place] [address] Referring Physician Endocrinology Diabetes & Metabolism 05/21/23 documented as of this encounter
--- OUTSIDE RECORDS SUMMARY | 2024-09-30 16:30 | XMS_ITS | Encounter Summary ---
Author Organization [facility] Address [address] [place] [address] Care Team Providers Care Graphics Edit Technician Name Role Phone Cornell Bingham MD Unavailable [phone] Chris Mahmood DO Primary Care Provider [phone] Fabrizio Thomason MD Unavailable [phone] Shruthi Modi MD Primary Care Provider [phone] David Beltran DO Unavailable [phone] Xiomara Hernandez NP Unavailable [phone] Domingo Elizabeth MD Unavailable [phone] Dmitry Laguna MD Unavailable Unavailable Encounter Details Date Type Department Care Team (Late st Contact Info) Description 04/10/2021 [employer] Message Enc [facility] THREE [facility], [address] [address] Cornell Bingham MD Three [facility]. [facility] [address] [place] [address] RE: Other Social History Tobacco Use Types Packs/Day [...] Sex Assigned at Female 09/01/2024 3:25 PM SOFTWARE INTEGRATION DEVELOPER Legal Sex Female 10:56 PM CDT Gender Identity Female 09/04/2021 12:32 PM SOFTWARE INTEGRATION DEVELOPER Sexual Orientation Straight 09/04/2021 12 :32 PM SOFTWARE INTEGRATION DEVELOPER COVID-19 Exposure Response Date Recorded In the last month, have you been in contact with someone who was confirmed or suspected to have Coronavirus / COVID-19? No / Unsure 04/13/2021 3:39 PM CDT documented as of this encounter Functional Status * RETIRED Are you deaf or do you have serious difficulty hearing Answer Date of Assessment Author Status No 07/09/2020 8:09 AM SOFTWARE INTEGRATION DEVELOPER Activ e * RETIRED Are you blind or do you have serious difficulty seeing, even when wearing glasses? Answer Date of Assessment Author Status No 07/09/2020 8:09 AM SOFTWARE INTEGRATION DEVELOPER Activ e * Do you have serious [...] st Contact Info) Description 10/01/2024 8:45 AM SOFTWARE INTEGRATION DEVELOPER Appointment [facility] Outpatient Therapy THREE [place] [address] Orlando Devries, JOHN [address] [facility] [place] [address] Terese Braga OTR 1 [place] [address] 11/04/2024 9:00 AM CDT Office Visit [facility] Medical Group Multispecialty Care - [facility] 3 [facility] [address] [place] [address] Domingo Elizabeth MD 3 [facility] [address] [place] [address] 11/09/2024 1:15 PM CDT Office Visit [facility] THREE [facility], [address] [place] [address] Radha Valente FNP 3 [facility] MAR [address] [place] [address] documented as of this encounter Visit Diagnoses [...] Rule Out 09/25/2023 09/25/2023 09/25/2023 2:02 PM SOFTWARE INTEGRATION DEVELOPER COVID-19 Rule Out 05/26/2024 05/26/2024 05/26/2024 1:58 PM CDT documented as of this encounter Care Teams Graphics Edit Technician Relationship Specialty Start Date End Date Chris Mahmood DO [address] [place] [address] PCP - General FAMILY PRACTICE 07/06/20 10/17/21 Shruthi Modi MD [address] [place] [address] PCP - General FAMILY PRACTICE 10/18/21 Cornell Bingham MD Three [facility]. [address] [address] Chase Drying Tunnel Operator CARDIOVASCULAR DISEASE 03/01/19 Fabrizio Thomason MD [address] [place] [place] [address] Referring Physician MEDICAL ONCOLOGY 12/06/20 07/03/22 David Beltran DO [address] [place] [address] [address] [place] [phone] Consulting Physician INTERNAL MEDICINE 07/04/22 Xiomara Hernandez NP [address] [place] [address], [address] [place] [address] NURSE PRACTITIONER GERONTOLOGY 07/04/22 Domingo Elizabeth MD 3 [facility] [address] [place] [address] Consulting Physician Internal Medicine Pulmonary Disease 07/04/22 Dmitry Laguna MD [address] [address] Consulting Physician ENDOCRINOLOGY 07/04/22 documented as of this encounter
--- OUTSIDE RECORDS SUMMARY | 2024-09-30 16:31 | XMS_ITS | Encounter Summary ---
Author Organization [facility] Address [address] [place] [address] Care Team Providers Care Bedspread Cutter Name Role Phone Cornell Bingham MD Unavailable [phone] Fabrizio Thomason MD Unavailable [phone] Shruthi Modi MD Primary Care Provider [phone] David Beltran DO Unavailable [phone] Xiomara Hernandez NP Unavailable [phone] Domingo Elizabeth MD Unavailable [phone] Dmitry Laguna MD Unavailable Unavailable Encounter Details Date Type Department Care Team (Late st Contact Info) Description 12/20/2021 MyChart Message Enc [facility] Medical Group Multispecialty Care - [facility] 3 [facility], [address] [place] [phone] Gideon Rodriguez MD 3 [place], [place] [id number] cervical MRI Social History Tobacco Use Types Packs/Day Years Used Date Smoking Tobacco: Every Day Cigarettes 0.5 12 Smokeless Tobacco: Never Comments:provider to address Alcohol Use Standard Drinks/Week Comments Yes 0 [...] Sex Assigned at Female 09/01/2024 3:25 PM CHROME PLATER HELPER Legal Sex Female 10:56 PM CDT Gender Identity Female 09/04/2021 12:32 PM CHROME PLATER HELPER Sexual Orientation Straight 09/04/2021 12 :32 PM CHROME PLATER HELPER COVID-19 Exposure Response Date Recorded In the last 10 days, have yo u been in contact with someone who was confirmed or suspected to have Coronavirus/COVID-19? No / Unsure 12/20/2021 9:50 AM CDT documented as of this encounter [...] documented in this encounter Progress Notes * Brenda Boland MA - 12/20/2021 9:14 AM CDT Spoke with pt and made sure that she had no numbness to her vagina and rectum, she said that she could feel it. I verified that she could feel she had to go but had trouble keeping it in. She said yes that's how it feels. I told her that both that issue and the discoloration, cold and numbness of fingers and toes need to be addressed by the pcp. She vu. documented in this encounter Plan of Treatment Upcoming Encounters Date Type Department Care Team (Late st Contact Info) Description 10/01/2024 8:45 AM CHROME PLATER HELPER Appointment [facility] [place]patient [place] [address] Orlando Devries NP [address] [place] [address]. [place] [address] Terese Braga OTR 1 [place] [address] 11/04/2024 9:00 AM CDT Office Visit [facility] Medical Group Multispecialty Care - [facility] 3 [facility] [address] [place] [address] Domingo Elizabeth MD 3 [facility] [address] [place] [address] 11/09/2024 1:15 PM CDT Office Visit [facility] [place] THREE [facility], [address] [place] [address] Radha Valente FNP 3 [facility] [address] [place], [place] [address] documented as of this encounter Visit Diagnoses Not on filedocumented in this encounter Additional Health Concerns Infection Onset Date Last Indicated Resolved Time COVID-19 Rule Out 04/28/2022 04/28/2022 04/28/2022 1:35 PM CDT COVID-19 Rule Out 04/28/2022 04/28/2022 04/28/2022 7:46 PM CDT COVID-19 Rule Out 05/17/2022 05/17/2022 05/18/2022 6:00 PM CDT COVID-19 Rule Out 09/25/2023 09/25/2023 09/25/2023 2:02 PM CHROME PLATER HELPER COVID-19 Rule Out 05/26/2024 05/26/2024 05/26/2024 1:58 PM CDT Assessment Noted Time PHQ-9 Depression Total Score: 8 10/19/19 3:29 PM CHROME PLATER HELPER documented as of this encounter Care Teams Bedspread Cutter Relationship Specialty Start Date End Date Shruthi Modi MD [address] [place] [address] PCP - General FAMILY PRACTICE 10/18/21 Cornell Bingham MD [address] [address] [place] [facility] Office Manager CARDIOVASCULAR DISEASE 03/01/19 Fabrizio Thomason MD [address] [place] [address] Referring Physician MEDICAL ONCOLOGY 12/06/20 07/03/22 David Beltran DO [address] [place] [address] [address] [place] [address] Consulting Physician INTERNAL MEDICINE 07/04/22 Xiomara Hernandez EDUCATION ASSOCIATE [address] [place] [address], [address] [place] [address] NURSE PRACTITIONER GERONTOLOGY 07/04/22 Domingo Elizabeth MD [address] [address] Consulting Physician Internal Medicine Pulmonary Disease 07/04/22 Dmitry Laguna MD [address] [address] Consulting Physician ENDOCRINOLOGY 07/04/22 documented as of this encounter
--- OUTSIDE RECORDS SUMMARY | 2024-09-30 16:31 | XMS_ITS | Encounter Summary ---
Author Organization [facility] Address [address] [place] [address] Care Team Providers Care Manager Retention Name Role Phone Cornell Bingham MD Unavailable [phone] Fabrizio Thomason MD Unavailable [phone] Shruthi Modi MD Primary Care Provider [phone] David Beltran DO Unavailable [phone] Xiomara Hernandez NP Unavailable [phone] Domingo Elizabeth MD Unavailable [phone] Dmitry Laguna MD Unavailable Unavailable Encounter Details Date Type Department Care Team (Late st Contact Info) Description 12/19/2021 MyChart Message Enc [facility] Medical Group Family Medicine [facility] [address] [place] [address] Shruthi Modi MD [address] [place], [place] [phone] Appointment Social History Tobacco Use Types Packs/Day [...] Sex Assigned at Female 09/01/2024 3:25 PM SCHEDULING SPECIALIST Legal Sex Female 10:56 PM CDT Gender Identity Female 09/04/2021 12:32 PM SCHEDULING SPECIALIST Sexual Orientation Straight 09/04/2021 12 :32 PM SCHEDULING SPECIALIST COVID-19 Exposure Response Date Recorded In [...] st Contact Info) Description 10/01/2024 8:45 AM SCHEDULING SPECIALIST [facility]ointment [facility] THREE [place] [address] Orlando Devries NP [address] [facility] [place] [address] Terese Braga OTR 1 [place] [address] 11/04/2024 9:00 AM CDT Office Visit [facility] Medical [facility] 3 [facility] [address] [place] [phone] Domingo Elizabeth MD 3 [facility] [address] [place] [address] 11/09/2024 1:15 PM CDT Office Visit [facility] [address] [facility], [address] [place] [address] Radha Valente FNP [address] [facility] [address] [place] [address] documented as of this encounter Visit Diagnoses Not on filedocumented in this encounter Additional Health Concerns Infection Onset Date Last Indicated Resolved Time COVID-19 Rule Out 04/28/2022 04/28/2022 04/28/2022 1:35 PM CDT COVID-19 Rule Out 04/28/2022 04/28/2022 04/28/2022 7:46 PM CDT COVID-19 Rule Out 05/17/2022 05/17/2022 05/18/2022 6:00 PM CDT COVID-19 Rule Out 09/25/2023 09/25/2023 09/25/2023 2:02 PM SCHEDULING SPECIALIST COVID-19 Rule Out 05/26/2024 05/26/2024 05/26/2024 1:58 PM CDT Assessment Noted Time PHQ-9 Depression Total Score: 8 10/19/19 22 3:29 PM SCHEDULING SPECIALIST documented as of this encounter Care Teams Manager Retention Relationship Specialty Start Date End Date Shruthi Modi MD [address] [place] [address] PCP - General FAMILY PRACTICE 10/18/21 Cornell Bingham MD Three [facility]. [address] [place] [address] [place] [employer] Sander CARDIOVASCULAR DISEASE 03/01/19 Fabrizio Thomason MD [address] [place] [address] [address] [place] [address] Referring Physician MEDICAL ONCOLOGY 12/06/20 07/03/22 David Beltran DO [address] [place] [address] 100 [place] [address] Consulting Physician INTERNAL MEDICINE 07/04/22 Xiomara Hernandez BUNDLE TIER AND LABELER [address] [place] [address], [address] [place] [address] NURSE PRACTITIONER GERONTOLOGY 07/04/22 Domingo Elizabeth MD 3 [facility] [address] [place] [address] Consulting Physician Internal Medicine Pulmonary Disease 07/04/22 Dmitry Laguna MD 3 [facility] [address] [place] [address] Consulting Physician ENDOCRINOLOGY 07/04/22 documented as of this encounter
--- OUTSIDE RECORDS SUMMARY | 2024-09-30 16:31 | XMS_ITS | Encounter Summary ---
Author Organization [facility] Facility Care Team Providers Care Clay Preparation Supervisor Name Role Phone Paddy Riley MD, Fabriizo Unavailable [phone] Chris Mahmood DO Primary Care Provider + No, Physician Primary Care Provider [phone] Shruthi Modi MD Primary Care Provider Dmitry Laguna MD Unavailable [phone] Encounter Details Date Type Department Care Team (Latest Contact Info) Description 04/23/2016 Orders Only [facility] CLINCONV ProviderRay MD [address] [place] [address] Social History Tobacco Use Types Packs/Day Years Used Date Smoking Tobacco: Never Assessed Comments Unknown Sex and Gender Information Value Date Recorded Sex Assigned at Not on file Legal Sex Female 6:55 AM RETAIL SELLING FLOOR LEADER Gender Identity Female 07/23/2020 8:34 PM RETAIL SELLING FLOOR LEADER Sexual Orientation Straight 07/23/2020 8: 34 PM RETAIL SELLING FLOOR LEADER documented as of this encounter Plan of [...] documented as of this encounter Care Teams Clay Preparation Supervisor Relationship Specialty Start Date End Date Chris Mahmood DO [address] [place] [address] PCP - General Family Medicine 07/05/21 10/04/21 No, Physician PCP - General 10/15/21 10/23/21 Shruthi Modi MD [address] [facility] [place] [address] PCP - General Family Practice 10/24/21 Fabrizio Thomason Jr., MD Medical Oncologist/Hematologis t Medical Oncology 03/02/21 Dmitry Laguna MD [address] [facility] [place] [address] Referring Physician Endocrinology Diabetes & Metabolism 05/21/23 documented as of this encounter
--- OUTSIDE RECORDS SUMMARY | 2024-09-30 16:31 | XMS_ITS | Encounter Summary ---
Author Organization [facility] Address [facility] [place] [address] Care Team Providers Care Receivable Clerk Name Role Phone Cornell [place] MD Unavailable [phone] Shruthi Modi MD Primary Care Provider [phone] David Beltran DO Unavailable [phone] Xiomara Hernandez NP Unavailable [phone] Domingo [place] MD Unavailable [phone] Dmitry Laguna MD Unavailable Unavailable Encounter Details Date Type Department Care Team (Late st Contact Info) Description 05/26/2023 Synappio Message Enc [facility] THREE [facility], [address] [id number] Cornell [place] MD Three [facility]. [facility] [address] [place], [place] [address] Surgery clearance Social History Tobacco Use Types Packs/Day [...] declined 09/01/2022 How often do you attend restorationism or roman catholic serv ices? Patient declined 09/01/2022 Do you belong to any clubs o r organizations such as restorationism groups, unions, fraternal or athletic groups, or [...] Recorded Patient Health Questionnaire-2 Score 6 05/12/2023 [facility] [place] of Occupat ional Health - Occupational Stress [...] Sex Assigned at Female 09/01/2024 3:25 PM TANDEM OPERATOR Legal Sex Female 10:56 PM CDT Gender Identity Female 09/04/2021 12:32 PM TANDEM OPERATOR Sexual Orientation Straight 09/04/2021 12 :32 PM TANDEM OPERATOR documented as of this encounter Functional Status * RETIRED Are you deaf or do you have serious difficulty hearing Answer Date of Assessment Author Status No 08/29/2022 3:53 PM TANDEM OPERATOR Activ e * RETIRED Are you blind or do you have serious difficulty seeing, even when wearing glasses? Answer Date of Assessment Author Status No 08/29/2022 3:53 PM TANDEM OPERATOR Activ e * Do you have serious difficulty walking or climbing stairs? Answer Date of Assessment Author Status No 08/29/2022 3:53 PM TANDEM OPERATOR Kathy Ellis RN Active * Do you have difficulty dressing or bathing? Answer Date of Assessment Author Status No 08/29/2022 3:53 PM Kathy Carballo RN Active * Because of a physical, mental, or emotional condition, do you have difficulty doing errands alone such as visiting a doctor's office or shopping? Answer Date of Assessment Author Status No 08/29/2022 3:53 PM TANDEM OPERATOR Rhonda, Kathy A, RN Active documented as of this encounter Mental Status * Because of a physical, mental, or emotional condition, do you have serious difficulty concentrating, remembering, or making decisions? Answer Entry Date Author Status No 08/29/2022 3:53 PM TANDEM OPERATOR Kathy Ellis RN Active documented in this encounter Progress Notes * Yajaira Sol RN - 05/26/2023 3:32 PM CDT . documented in this encounter Plan of Treatment Upcoming Encounters Date Type Department Care Team (Late st Contact Info) Description 10/01/2024 8:45 AM TANDEM OPERATOR Appointment [facility] [place] [address] Orlando Devries NP [address] [place] [address]. [place] [address] Terese Braga OTR 1 [place] [address] 11/04/2024 9:00 AM CDT Office Visit [facility] Medical Group [facility] - [facility] [address] [facility] [place] [address] Domingo [place] MD [address] [facility] [address] [place] [address] 11/09/2024 1:15 PM CDT Office Visit [facility] THREE [facility], [address] [place] [address] Radha Valente FNP 3 [facility] [address] [place], [place] [address] documented as of this encounter Goals Goal [...] Rule Out 09/25/2023 09/25/2023 09/25/2023 2:02 PM TANDEM OPERATOR COVID-19 Rule Out 05/26/2024 05/26/2024 05/26/2024 1:58 PM CDT Assessment Noted Time PHQ-9 Depression Total Score: 24 023 9:34 AM CDT documented as of this encounter Care Teams Receivable Clerk Relationship Specialty Start Date End Date Shruthi Modi MD [facility] [place] [address] PCP - General FAMILY PRACTICE 10/18/21 Cornell B[place] MD Three [facility]. [address] [place] [address] [place] Implementation Analyst CARDIOVASCULAR DISEASE 03/01/19 David Beltran DO [address] [place] [address] [address] [place] [address] Consulting Physician INTERNAL MEDICINE 07/04/22 Xiomara Hernandez, ACTUARY CLERK [address] [place] [address], [address] [place] [address] NURSE PRACTITIONER GERONTOLOGY 07/04/22 Domingo [place] MD 3 [facility] [address] [place] [address] Consulting Physician Internal Medicine Pulmonary Disease 07/04/22 Dmitry Laguna MD [address] [place] [id number] Consulting Physician ENDOCRINOLOGY 07/04/22 documented as of this encounter
--- OUTSIDE RECORDS SUMMARY | 2024-09-30 16:31 | XMS_ITS | Encounter Summary ---
Author Organization [facility] Address [address] [place] [address] Care Team Providers Care Hazardous Waste Material Technician Name Role Phone Cornell B[place] MD Unavailable [phone] Shruthi Modi MD Primary Care Provider [phone] David Beltran DO Unavailable [phone] Xiomara Hernandez NP Unavailable [phone] Domingo [place] MD Unavailable [phone] Dmitry Laguna MD Unavailable Unavailable Encounter Details Date Type Department Care Team (Late st Contact Info) Description 05/26/2023 170 Systemst Message Enc [facility] Medical Group Family Medicine [facility] [address] [place] [address] Shruthi Modi MD [facility]6 [place] [address] Surgery clearance Social History Tobacco Use Types [...] declined 09/01/2022 How often do you attend hindu or church serv ices? Patient declined 09/01/2022 Do you belong to any clubs o r organizations such as hindu groups, unions, fraternal or athletic groups, or [...] Recorded Patient Health Questionnaire-2 Score 6 05/12/2023 [facility] [place] of Occupat ional Health - Occupational Stress [...] Sex Assigned at Female 09/01/2024 3:25 PM CORRECTIONAL SUPERVISOR Legal Sex Female 10:56 PM CDT Gender Identity Female 09/04/2021 12:32 PM CORRECTIONAL SUPERVISOR Sexual Orientation Straight 09/04/2021 12 :32 PM CORRECTIONAL SUPERVISOR documented as of this encounter Functional Status * RETIRED Are you deaf or do you have serious difficulty hearing Answer Date of Assessment Author Status No 08/29/2022 3:53 PM CORRECTIONAL SUPERVISOR Activ e * RETIRED Are you blind or do you have serious difficulty seeing, even when wearing glasses? Answer Date of Assessment Author Status No 08/29/2022 3:53 PM CORRECTIONAL SUPERVISOR Activ e * Do you have serious difficulty walking or climbing stairs? Answer Date of Assessment Author Status No 08/29/2022 3:53 PM CORRECTIONAL SUPERVISOR Kathy Ellis RN Active * Do you have difficulty dressing or bathing? Answer Date of Assessment Author Status No 08/29/2022 3:53 PM Kathy Carballo RN Active * Because of a physical, mental, or emotional condition, do you have difficulty doing errands alone such as visiting a doctor's office or shopping? Answer Date of Assessment Author Status No 08/29/2022 3:53 PM CORRECTIONAL SUPERVISOR Kathy Ellis RN Active documented as of this encounter Mental Status * Because of a physical, mental, or emotional condition, do you have serious difficulty concentrating, remembering, or making decisions? Answer Entry Date Author Status No 08/29/2022 3:53 PM CORRECTIONAL SUPERVISOR Kathy Ellis RN Active documented in this encounter Plan of Treatment Upcoming Encounters Date Type Department Care Team (Late st Contact Info) Description 10/01/2024 8:45 AM CORRECTIONAL SUPERVISOR Appointment [facility] [place]patient [place] [address] Orlando Devries NP [address] [place] [address] Terese Braga, ARMANDO 1 [place] [address] 11/04/2024 9:00 AM CDT Office Visit [facility] Medical Group Multispecialty Care - [facility] [address] [facility] [place] [address] Domingo [place] MD [address] [facility] [address] [place] [address] 11/09/2024 1:15 PM CDT Office Visit [facility] THREE [facility], [address] [place] [address] Radha Valente FNP 3 [facility] [address] [place], [place] [address] documented as of this encounter Goals Goal [...] Rule Out 09/25/2023 09/25/2023 09/25/2023 2:02 PM CORRECTIONAL SUPERVISOR COVID-19 Rule Out 05/26/2024 05/26/2024 05/26/2024 1:58 PM CDT Assessment Noted Time PHQ-9 Depression Total Score: 24 023 9:34 AM CDT documented as of this encounter Care Teams Hazardous Waste Material Technician Relationship Specialty Start Date End Date Shruthi Modi MD [address] [place] [address] PCP - General FAMILY PRACTICE 10/18/21 Cornell [place] MD Three [facility]. [address] [place] [address] [address] Sealer CARDIOVASCULAR DISEASE 03/01/19 David Beltran DO [address] [place] [address] [address] [place] [address] Consulting Physician INTERNAL MEDICINE 07/04/22 Xiomara Hernandez NP [address] [place] [address], [address] [place] [address] NURSE PRACTITIONER GERONTOLOGY 07/04/22 Domingo [place] MD 3 [facility] [address] [place] [address] Consulting Physician Internal Medicine Pulmonary Disease 07/04/22 Dmitry Laguna MD [address] [facility] [address] [place] [address] Consulting Physician ENDOCRINOLOGY 07/04/22 documented as of this encounter
--- OUTSIDE RECORDS SUMMARY | 2024-09-30 16:31 | XMS_ITS | Encounter Summary ---
Author Organization [facility] Address [address] [place] [address] Care Team Providers Care Engraved Roller Inspector Name Role Phone Cornell B[place] MD Unavailable [phone] Fabrizio Thomason MD Unavailable [phone] Shruthi Modi MD Primary Care Provider [phone] David Beltran DO Unavailable [phone] Xiomara Hernandez NP Unavailable [phone] Domingo [place] MD Unavailable [phone] Dmitry Laguna MD Unavailable Unavailable Encounter Details Date Type Department Care Team (Late st Contact Info) Description 01/28/2022 Pre-Procedure Call [facility] Endo/GI [place], [place] [id number] Barry Parsons, Social History Tobacco Use Types Packs/Day Years [...] Sex Assigned at Female 09/01/2024 3:25 PM BILL SORTER Legal Sex Female 10:56 PM CDT Gender Identity Female 09/04/2021 12:32 PM BILL SORTER Sexual Orientation Straight 09/04/2021 12 :32 PM BILL SORTER COVID-19 Exposure Response Date Recorded In the last 10 days, have yo u been in contact with someone who was confirmed or suspected to have Coronavirus/COVID-19? No / Unsure 01/29/2022 1:18 AM CDT documented as of this encounter Last Filed Vital Signs Vital Sign Reading Time Taken Comments Blood Pressure - - Pulse - - Temperature - - Respiratory Rate - - Oxygen Saturation - - Inhaled Oxygen Concentration - - Weight 70.3 kg (155 lb) 01/28/2022 3:51 PM CDT Height - - Body Mass Index 25.02 01/18/2022 11:22 AM CDT documented in this encounter Functional Status * RETIRED Are [...] st Contact Info) Description 10/01/2024 8:45 AM BILL SORTER Appointment [facility] Outpatient [place] [address] Orlando Devries NP [address] [place] [address] Terese Braga OTR 1 [place] [address] 11/04/2024 9:00 AM CDT Office Visit [facility] Medical Group Multispecialty Care - [facility] 3 [facility] [place] [address] Domingo [place] MD 3 [facility] [address] [place] [address] 11/09/2024 1:15 PM CDT Office Visit [facility] THREE [place], [address] [place] [address] Radha Valente FNP [address] [place] [address] [place] [address] documented as of this encounter Visit Diagnoses Not on filedocumented in this encounter Additional Health Concerns Infection Onset Date Last Indicated Resolved Time COVID-19 Rule Out 04/28/2022 04/28/2022 04/28/2022 1:35 PM CDT COVID-19 Rule Out 04/28/2022 04/28/2022 04/28/2022 7:46 PM CDT COVID-19 Rule Out 05/17/2022 05/17/2022 05/18/2022 6:00 PM CDT COVID-19 Rule Out 09/25/2023 09/25/2023 09/25/2023 2:02 PM BILL SORTER COVID-19 Rule Out 05/26/2024 05/26/2024 05/26/2024 1:58 PM CDT Assessment Noted Time PHQ-9 Depression Total Score: 8 10/19/19 22 3:29 PM BILL SORTER documented as of this encounter Care Teams Engraved Roller Inspector Relationship Specialty Start Date End Date Shruthi Modi MD [address] [place] [address] PCP - General FAMILY PRACTICE 10/18/21 Cornell [place] MD Three [facility]. [address] [place] [address] [place] [employer] Technician CARDIOVASCULAR DISEASE 03/01/19 Fabrizio Thomason MD [address] [place] [address] [address] [place] [address] Referring Physician MEDICAL ONCOLOGY 12/06/20 07/03/22 David Beltran DO [address] [place] [address] 100 [place] [address] Consulting Physician INTERNAL MEDICINE 07/04/22 Xiomara Hernandez ASSEMBLYMAN OR WOMAN [address] [place] [address], [address] [place] [address] NURSE PRACTITIONER GERONTOLOGY 07/04/22 Domingo [place] MD [address] [facility] [address] [place] [address] Consulting Physician Internal Medicine Pulmonary Disease 07/04/22 Dmitry Laguna MD [address] [place] [address] Consulting Physician ENDOCRINOLOGY 07/04/22 documented as of this encounter
--- OUTSIDE RECORDS SUMMARY | 2024-09-30 16:31 | XMS_ITS | Encounter Summary ---
Author Organization [facility] Address [address] [place] [address] Care Team Providers Care Pure Culture Operator Name Role Phone Cornell B[place] MD Unavailable [phone] Shruthi Modi MD Primary Care Provider [phone] David Beltran DO Unavailable [phone] Xiomara Hernandez NP Unavailable [phone] Domingo [place] MD Unavailable [phone] Dmitry Laguna MD Unavailable Unavailable Reason for Visit * Reason Onset Date Comments FYI 03/28/2023 Encounter Details Date Type Department Care Team (Late st Contact Info) Description 03/28/2023 Telephone [facility] Medical Group Family Medicine [facility] [address] [place] [address] Shruthi Modi MD [address] [place] [address] FYI (/) Social History Tobacco Use Types Packs/Day Years [...] declined 09/01/2022 How often do you attend sikh or hinduism serv ices? Patient declined 09/01/2022 Do you belong to any clubs o r organizations such as sikh groups, unions, fraternal or athletic groups, or [...] Recorded Patient Health Questionnaire-2 Score 1 01/29/2023 [facility] of Occupat ional Health - Occupational Stress [...] place to sleep or slept in a mcfp (including now)? No 09/01/2022 Comments No Sex and Gender Information Value Date Recorded Sex Assigned at Female 09/01/2024 3:25 PM SECURITY CONTROLS ASSESSOR Legal Sex Female 10:56 PM CDT Gender Identity Female 09/04/2021 12:32 PM SECURITY CONTROLS ASSESSOR Sexual Orientation Straight 09/04/2021 12 :32 PM SECURITY CONTROLS ASSESSOR documented as of this encounter Functional Status * RETIRED Are you deaf or do you have serious difficulty hearing Answer Date of Assessment Author Status No 08/29/2022 3:53 PM SECURITY CONTROLS ASSESSOR Activ e * RETIRED Are you blind or do you have serious difficulty seeing, even when wearing glasses? Answer Date of Assessment Author Status No 08/29/2022 3:53 PM SECURITY CONTROLS ASSESSOR Activ e * Do you have serious difficulty walking or climbing stairs? Answer Date of Assessment Author Status No 08/29/2022 3:53 PM SECURITY CONTROLS ASSESSOR Kathy Ellis RN Active * Do you have difficulty dressing or bathing? Answer Date of Assessment Author Status No 08/29/2022 3:53 PM SECURITY CONTROLS ASSESSOR Kathy Ellis RN Active * Because of a physical, mental, or emotional condition, do you have difficulty doing errands alone such as visiting a doctor's office or shopping? Answer Date of Assessment Author Status No 08/29/2022 3:53 PM SECURITY CONTROLS ASSESSOR Kathy Ellis RN Active documented as of this encounter Mental Status * Because of a physical, mental, or emotional condition, do you have serious difficulty concentrating, remembering, or making decisions? Answer Entry Date Author Status No 08/29/2022 3:53 PM Kathy Carballo RN Active documented in this encounter Progress Notes * Shruthi Modi MD - 04/11/2023 12:41 PM CDT Noted. Discussed this concern with pt at her most recent office visit after I returned from vacation. Thanks! ~Dr Rodriguez * Izabela Ward - 03/28/2023 2:54 PM CDT Pt was advised to see a cornea specialist and she saw Dr Machado They found out she has fluid behind her macula that could be from her diabetes medication or an auto immune disorder. He ordered some labs to be done to rule out any auto immune disorders and she hasalready done that for him She wanted to make EE aware, she was informed that EE is out of the clinic until 04/04 but there jerome covering provider so there may be a delay in messages [phone] documented in this encounter Plan of Treatment Upcoming Encounters Date Type Department Care Team (Late st Contact Info) Description 10/01/2024 8:45 AM SECURITY CONTROLS ASSESSOR Appointment [facility] [place]patient [place] [address] Orlando Devries, JOHN [address] [facility] [place] [address] Terese Braga OTR 1 [place] [address] 11/04/2024 9:00 AM CDT Office Visit [facility] Medical Group Multispecialty Care - [facility] [address] [facility] [address] [place] [place] [address] Domingo [place] MD [address] [facility] [address] [place] [address] 11/09/2024 1:15 PM CDT Office Visit [facility] THREE [facility], [address] [place], [place] [address] Radha Valente FNP 3 [facility] [address] [place], [place] [id number] documented as of this encounter Goals Goal [...] Rule Out 09/25/2023 09/25/2023 09/25/2023 2:02 PM SECURITY CONTROLS ASSESSOR COVID-19 Rule Out 05/26/2024 05/26/2024 05/26/2024 1:58 PM CDT Assessment Noted Time PHQ-9 Depression Total Score: 15 2 022 2:20 PM CDT documented as of this encounter Care Teams Pure Culture Operator Relationship Specialty Start Date End Date Shruthi Modi MD [address] [place] [address] PCP - General FAMILY PRACTICE 10/18/21 Cornell [place] MD Three [facility]. [address] [place], [place] [address] [place] Bacteriology Research Assistant CARDIOVASCULAR DISEASE 03/01/19 David Beltran DO [address] [place] [address] [address] [place] [address] Consulting Physician INTERNAL MEDICINE 07/04/22 Xiomara Hernandez NP [address] [place] [address], [address] [place] [address] NURSE PRACTITIONER GERONTOLOGY 07/04/22 Domingo [place] MD 3 [facility] [address] [place] [address] Consulting Physician Internal Medicine Pulmonary Disease 07/04/22 Dmitry Laguna MD [address] [facility] MAR [address] [place] [address] Consulting Physician ENDOCRINOLOGY 07/04/22 documented as of this encounter
--- OUTSIDE RECORDS SUMMARY | 2024-09-30 16:31 | XMS_ITS | Encounter Summary ---
Author Organization [facility] Facility Care Team Providers Care Cutter Out Name Role Phone Paddy Riley MD, Fabrizio Unavailable [phone] Chris Mahmood DO Primary Care Provider + No, Physician Primary Care Provider [phone] Shruthi Modi MD Primary Care Provider Dmitry Laguna MD Unavailable [phone] Encounter Details Date Type Department Care Team (Latest Contact Info) Description 01/29/2016 Orders Only [facility] CLINCONV ProviderRay MD [address] [place] [address] Social History Tobacco Use Types Packs/Day Years Used Date Smoking Tobacco: Never Assessed Comments Unknown Sex and Gender Information Value Date Recorded Sex Assigned at Not on file Legal Sex Female 6:55 AM MAILROOM MESSENGER Gender Identity Female 07/23/2020 8:34 PM MAILROOM MESSENGER Sexual Orientation Straight 07/23/2020 8: 34 PM MAILROOM MESSENGER documented as of this encounter Plan of [...] documented as of this encounter Care Teams Cutter Out Relationship Specialty Start Date End Date Chris Mahmood DO [address] [place] [address] PCP - General Family Medicine 07/05/21 10/04/21 No, Physician PCP - General 10/15/21 10/23/21 Shruthi Modi MD [address] [place] [address] PCP - General Family Practice 10/24/21 Fabrizio Thomason Jr., MD Medical Oncologist/Hematologis t Medical Oncology 03/02/21 Dmitry Laguna MD [address] [facility] [address] Referring Physician Endocrinology Diabetes & Metabolism 05/21/23 documented as of this encounter
--- OUTSIDE RECORDS SUMMARY | 2024-09-30 16:31 | XMS_ITS | Encounter Summary ---
Author Organization [facility] Address [address] [place] [address] Care Team Providers Care Stitch Bonder Machine Operator Helper Name Role Phone Cornell Bingham MD Unavailable [phone] Shruthi Modi MD Primary Care Provider [phone] David Beltran DO Unavailable [phone] Xiomara Hernandez NP Unavailable [phone] Domingo Elizabeth MD Unavailable [phone] Dmitry Laguna MD Unavailable Unavailable Encounter Details Date Type Department Care Team (Late st Contact Info) Description 05/29/2023 LiveOfficet Message Enc [facility] Medical Group Family Medicine [facility] [address] [place] [address] Shruthi Modi MD [address] [place] [address] [facility] Social History Tobacco Use Types Packs/Day Years [...] declined 09/01/2022 How often do you attend presybeterian or baptism serv ices? Patient declined 09/01/2022 Do you belong to any clubs o r organizations such as presybeterian groups, unions, fraternal or athletic groups, or [...] Recorded Patient Health Questionnaire-2 Score 6 05/12/2023 [facility] [place] of Occupat ional Health - Occupational Stress [...] Sex Assigned at Female 09/01/2024 3:25 PM KILN HAND Legal Sex Female 10:56 PM CDT Gender Identity Female 09/04/2021 12:32 PM KILN HAND Sexual Orientation Straight 09/04/2021 12 :32 PM KILN HAND documented as of this encounter Functional Status * RETIRED Are you deaf or do you have serious difficulty hearing Answer Date of Assessment Author Status No 08/29/2022 3:53 PM KILN HAND Activ e * RETIRED Are you blind or do you have serious difficulty seeing, even when wearing glasses? Answer Date of Assessment Author Status No 08/29/2022 3:53 PM KILN HAND Activ e * Do you have serious difficulty walking or climbing stairs? Answer Date of Assessment Author Status No 08/29/2022 3:53 PM KILN HAND Kathy Ellis RN Active * Do you have difficulty dressing or bathing? Answer Date of Assessment Author Status No 08/29/2022 3:53 PM Kathy Carballo RN Active * Because of a physical, mental, or emotional condition, do you have difficulty doing errands alone such as visiting a doctor's office or shopping? Answer Date of Assessment Author Status No 08/29/2022 3:53 PM KILN HAND Rhonda, Kathy A, RN Active documented as of this encounter Mental Status * Because of a physical, mental, or emotional condition, do you have serious difficulty concentrating, remembering, or making decisions? Answer Entry Date Author Status No 08/29/2022 3:53 PM Kathy Carballo RN Active documented in this encounter Progress Notes * Yesika Perez MA - 05/29/2023 3:18 PM CDT Pt informed. * Shruthi Modi MD - 05/29/2023 2:21 PM CDT Unfortunately I only see 72mcg po qd in pt's chart. I only see a telephone message from his office in pt's chart and not his prior notes to confirm pt's dose. Pt will need to get her current dose of 145mcg po qd from Dr Parsons. Thanks! ~Dr Rodriguez * Shruthi Modi MD - 05/29/2023 2:19 PM CDTFrom: Kerry Barroso To: Dr. Shruthi Modi Sent: 05/29/2023 1:36 PM CDT Subject: Kinzess 145mcg I called Dr. Parsons's new office at [facility] on Friday to get a refill of Linzess samples that he had given me at my last appointment before switching offices. He sent the wrong dosage to the pharmacy. I called back today and I was told that they couldn't put me in for a message since I have not seen him at the new office. They got the message on Friday so I'm confused. I got the support representative to leave a message to contact me, but I am totally out of my medication. Is there any way that you could write an Rx for Linzzwss 145mcg until I can get an appointment to see Dr. Parsons? It won'tbe until July for an appointment with him. documented in this encounter Plan of Treatment Upcoming Encounters Date Type Department Care Team (Late st Contact Info) Description 10/01/2024 8:45 AM KILN HAND Appointment [facility] Outpatient Therapy THREE [facility] [place] [address] Orlando Devries, JOHN [address] [facility] [place] [address] Terese Braga, OTR 1 [place] [address] 11/04/2024 9:00 AM CDT Office Visit [facility] Medical Group Multispecialty Care - [facility] 3 [facility] [address] [place] [address] Domingo Elizabeth MD 3 [facility] [address] [place] [address] 11/09/2024 1:15 PM CDT Office Visit [facility] THREE [facility], [address] [place] [address] Radha Valente FNP 3 [facility] [address] [place], [place] [address] documented as of this encounter Goals Goal [...] Rule Out 09/25/2023 09/25/2023 09/25/2023 2:02 PM KILN HAND COVID-19 Rule Out 05/26/2024 05/26/2024 05/26/2024 1:58 PM CDT Assessment Noted Time PHQ-9 Depression Total Score: 24 023 9:34 AM CDT documented as of this encounter Care Teams Stitch Bonder Machine Operator Helper Relationship Specialty Start Date End Date Shruthi Modi MD [address] [place] [address] PCP - General FAMILY PRACTICE 10/18/21 Cornell Bingham MD [address] [facility] [address] [place] [address] [employer] Insurance Sales Associate CARDIOVASCULAR DISEASE 03/01/19 David Beltran DO [address] [place] [address] [address] [place] [address] Consulting Physician INTERNAL MEDICINE 07/04/22 Xiomara Hernandez, POCKET CUTTER [address] [place] [address], [address] [place] [address] NURSE PRACTITIONER GERONTOLOGY 07/04/22 Domingo Elizabeth MD [facility] [address] [place] [address] Consulting Physician Internal Medicine Pulmonary Disease 07/04/22 Dmitry Laguna MD 3 [facility] [address] [place] [address] Consulting Physician ENDOCRINOLOGY 07/04/22 documented as of this encounter
--- OUTSIDE RECORDS SUMMARY | 2024-09-30 16:31 | XMS_ITS | Encounter Summary ---
Author Organization [facility] Address [address] [place] [address] Care Team Providers Care Biomass Power Plant Manager Name Role Phone Cornell Bingham MD Unavailable [phone] Shruthi Modi MD Primary Care Provider [phone] David Beltran DO Unavailable [phone] Xiomara Hernandez NP Unavailable [phone] Domingo Elizabeth MD Unavailable [phone] Dmitry Laguna MD Unavailable Unavailable Encounter Details Date Type Department Care Team (Late st Contact Info) Description 06/06/2023 iRhythm Technologiest Message Enc [facility] Medical [facility] Multispecialty Care - [facility] 3 [facility], [address] [place] [phone] Gideon Rodriguez MD [address] [place] [address] ct scan/ ?fusion Social History Tobacco Use Types Packs/Day Years [...] declined 09/01/2022 How often do you attend jew or moravian serv ices? Patient declined 09/01/2022 Do you belong to any clubs o r organizations such as jew groups, unions, fraternal or athletic groups, or [...] Recorded Patient Health Questionnaire-2 Score 6 05/12/2023 [facility] [place] of Occupat ional Health - Occupational Stress [...] Sex Assigned at Female 09/01/2024 3:25 PM HEEL SEAM RUBBER Legal Sex Female 10:56 PM CDT Gender Identity Female 09/04/2021 12:32 PM HEEL SEAM RUBBER Sexual Orientation Straight 09/04/2021 12 :32 PM HEEL SEAM RUBBER documented as of this encounter Functional Status * RETIRED Are you deaf or do you have serious difficulty hearing Answer Date of Assessment Author Status No 08/29/2022 3:53 PM HEEL SEAM RUBBER Activ e * RETIRED Are you blind or do you have serious difficulty seeing, even when wearing glasses? Answer Date of Assessment Author Status No 08/29/2022 3:53 PM HEEL SEAM RUBBER Activ e * Do you have serious difficulty walking or climbing stairs? Answer Date of Assessment Author Status No 08/29/2022 3:53 PM HEEL SEAM RUBBER Kathy Ellis RN Active * Do you have difficulty dressing or bathing? Answer Date of Assessment Author Status No 08/29/2022 3:53 PM HEEL SEAM RUBBER Kathy Ellis RN Active * Because of a physical, mental, or emotional condition, do you have difficulty doing errands alone such as visiting a doctor's office or shopping? Answer Date of Assessment Author Status No 08/29/2022 3:53 PM HEEL SEAM RUBBER Kathy Ellis RN Active documented as of this encounter Mental Status * Because of a physical, mental, or emotional condition, do you have serious difficulty concentrating, remembering, or making decisions? Answer Entry Date Author Status No 08/29/2022 3:53 PM HEEL SEAM RUBBER Kathy Ellis RN Active documented in this encounter Progress Notes * Uma Dang MA - 06/09/2023 7:49 AM CDT Forwarding to AA documented in this encounter Plan of Treatment Upcoming Encounters Date Type Department Care Team (Late st Contact Info) Description 10/01/2024 8:45 AM HEEL SEAM RUBBER Appointment [facility] [place] [address] Orlando Devries NP [address] [place] [address]. [place] [address] eTrese Braga OTR 1 [place] [address] 11/04/2024 9:00 AM CDT Office Visit [facility] Medical Group Multispecialty Care - [facility] 3 [facility]., [address] [place] [address] Domingo Elizabeth MD 3 [facility] [address] [place] [address] 11/09/2024 1:15 PM CDT Office Visit [facility] THREE [facility], [address] [place] [address] Radha Valente FNP 3 [facility] [address] [place] [address] documented as of this encounter Goals Goal [...] Rule Out 09/25/2023 09/25/2023 09/25/2023 2:02 PM HEEL SEAM RUBBER COVID-19 Rule Out 05/26/2024 05/26/2024 05/26/2024 1:58 PM CDT Assessment Noted Time PHQ-9 Depression Total Score: 24 023 9:34 AM CDT documented as of this encounter Care Teams Biomass Power Plant Manager Relationship Specialty Start Date End Date Shruthi Modi MD [address] [place] [address] PCP - General FAMILY PRACTICE 10/18/21 Cornell Bingham MD Three [facility]. [facility] [address] [place] [address] [place] Jewellery Designer CARDIOVASCULAR DISEASE 03/01/19 David Beltran DO [address] [place] [address] [address] [place] [address] Consulting Physician INTERNAL MEDICINE 07/04/22 Xiomara Hernandez NP [address] [place] [address], [address] [place] [address] NURSE PRACTITIONER GERONTOLOGY 07/04/22 Domingo Elizabeth MD 3 [facility] [address] [address] Consulting Physician Internal Medicine Pulmonary Disease 07/04/22 Dmitry Laguna MD [address] [address] Consulting Physician ENDOCRINOLOGY 07/04/22 documented as of this encounter
--- OUTSIDE RECORDS SUMMARY | 2024-09-30 16:31 | XMS_ITS | Encounter Summary ---
Author Organization [facility] Address [address] [place] [address] Care Team Providers Care Hedge Fund Principal Name Role Phone Cornell Bingham MD Unavailable [phone] Fabrizio Thomason MD Unavailable [phone] Shruthi Modi MD Primary Care Provider [phone] David Beltran DO Unavailable [phone] Xiomara Hernandez NP Unavailable [phone] Domingo Elizabeth MD Unavailable [phone] Dmitry Laguna MD Unavailable Unavailable Encounter Details Date Type Department Care Team (Latest Contact Info) Description 12/20/2021 MyChart Message Enc [facility] Medical Group Diabetes and Endocrinology - [place] [address] [facility] [address] [place], [place] [id number] Dmitry Laguna MD Medication change/Blood Pressure increase Social History Tobacco Use Types Packs/Day Years [...] Sex Assigned at Female 09/01/2024 3:25 PM STOVE INSTALLER Legal Sex Female 10:56 PM CDT Gender Identity Female 09/04/2021 12:32 PM STOVE INSTALLER Sexual Orientation Straight 09/04/2021 12 :32 PM STOVE INSTALLER COVID-19 Exposure Response Date Recorded In [...] st Contact Info) Description 10/01/2024 8:45 AM STOVE INSTALLER Appointment [facility] Outpatient [place] [address] Orlando Devries, JOHN [address] [facility] [place] [address] Terese Braga OTR 1 [place] [address] 11/04/2024 9:00 AM CDT Office Visit [facility] Medical Group Multispecialty Care - [facility] 3 [facility] [address] [place] [address] Domingo Elizabeth MD 3 [facility] [address] [place] [address] 11/09/2024 1:15 PM CDT Office Visit [facility] THREE [facility], [address] [place], [place] [address] Radha Valente FNP 3 [facility] [address] [place], [place] [address] documented as of this encounter Visit Diagnoses Not on filedocumented in this encounter Additional Health Concerns Infection Onset Date Last Indicated Resolved Time COVID-19 Rule Out 04/28/2022 04/28/2022 04/28/2022 1:35 PM CDT COVID-19 Rule Out 04/28/2022 04/28/2022 04/28/2022 7:46 PM CDT COVID-19 Rule Out 05/17/2022 05/17/2022 05/18/2022 6:00 PM CDT COVID-19 Rule Out 09/25/2023 09/25/2023 09/25/2023 2:02 PM STOVE INSTALLER COVID-19 Rule Out 05/26/2024 05/26/2024 05/26/2024 1:58 PM CDT Assessment Noted Time PHQ-9 Depression Total Score: 8 10/19/19 22 3:29 PM STOVE INSTALLER documented as of this encounter Care Teams Hedge Fund Principal Relationship Specialty Start Date End Date Shruthi Modi MD [address] [place] [address] PCP - General FAMILY PRACTICE 10/18/21 Cornell Bingham MD Three [facility]. [address] [place] [address] [place] Mechanical Facilities Technician CARDIOVASCULAR DISEASE 03/01/19 [place] [address] [place] [address] [address] [place] [address] Referring Physician MEDICAL ONCOLOGY 12/06/20 07/03/22 David Beltran DO [address] [place] [address] [address] [place] [address] Consulting Physician INTERNAL MEDICINE 07/04/22 Xiomara Hernandez NP [address] [place] [address], [address] [place] [address] NURSE PRACTITIONER GERONTOLOGY 07/04/22 Domingo Elizabeth MD 3 [facility] [address] [place] [address] Consulting Physician Internal Medicine Pulmonary Disease 07/04/22 Dmitry Laguna MD 3 [facility] [address] [place] [address] Consulting Physician ENDOCRINOLOGY 07/04/22 documented as of this encounter
--- OUTSIDE RECORDS SUMMARY | 2024-09-30 16:31 | XMS_ITS | Encounter Summary ---
Author Organization [facility] Address [address] [place] [address] Care Team Providers Care Lapel Stitcher Name Role Phone Cornell Bingham MD Unavailable [phone] Fabrizio Thomason MD Unavailable [phone] Shruthi Modi MD Primary Care Provider [phone] David Beltran DO Unavailable [phone] Xiomara Hernandez NP Unavailable [phone] Domingo Elizabeth MD Unavailable [phone] Dmitry Laguna MD Unavailable Unavailable Encounter Details Date Type Department Care Team (Late st Contact Info) Description 01/10/2022 Pomogatel Message Enc [facility] Medical Group Family Medicine [address] [address] Susanne, [employer] Provider ekg results Social History Tobacco Use Types Packs/Day [...] Sex Assigned at Female 09/01/2024 3:25 PM AIR QUALITY CHEMIST Legal Sex Female 10:56 PM CDT Gender Identity Female 09/04/2021 12:32 PM AIR QUALITY CHEMIST Sexual Orientation Straight 09/04/2021 12 :32 PM AIR QUALITY CHEMIST COVID-19 Exposure Response Date Recorded In the last 10 days, have yo u been in contact with someone who was confirmed or suspected to have Coronavirus/COVID-19? No / Unsure 01/12/2022 8:49 AM CDT documented as of this encounter [...] st Contact Info) Description 10/01/2024 8:45 AM AIR QUALITY CHEMIST Appointment [facility] Outpatient [place] [address] [place] [address] Orlando Devries, JOHN [address] [place] [address]. [place] [address] Terese Braga OTR 1 [place] [address] 11/04/2024 9:00 AM CDT Office Visit [facility] Medical Group Multispecialty Care - [facility] 3 [facility] [address] [place] [address] Domingo Elizabeth MD 3 [facility] [address] [place] [address] 11/09/2024 1:15 PM CDT Office Visit [facility] THREE [facility], [address] [place] [address] Radha Valente FNP 3 [facility] [address] [place] [address] documented as of this encounter Visit Diagnoses Not on filedocumented in this encounter Additional Health Concerns Infection Onset Date Last Indicated Resolved Time COVID-19 Rule Out 04/28/2022 04/28/2022 04/28/2022 1:35 PM CDT COVID-19 Rule Out 04/28/2022 04/28/2022 04/28/2022 7:46 PM CDT COVID-19 Rule Out 05/17/2022 05/17/2022 05/18/2022 6:00 PM CDT COVID-19 Rule Out 09/25/2023 09/25/2023 09/25/2023 2:02 PM AIR QUALITY CHEMIST COVID-19 Rule Out 05/26/2024 05/26/2024 05/26/2024 1:58 PM CDT Assessment Noted Time PHQ-9 Depression Total Score: 8 10/19/19 3:29 PM AIR QUALITY CHEMIST documented as of this encounter Care Teams Lapel Stitcher Relationship Specialty Start Date End Date Shruthi Modi MD [address] [place] [address] PCP - General FAMILY PRACTICE 10/18/21 Cornell Bingham MD Three [facility]. [address] [place] [address] [place] Dry Clipper Tender CARDIOVASCULAR DISEASE 03/01/19 Fabrizio Thomason MD [address] [facility] [address] [place] [address] Referring Physician MEDICAL ONCOLOGY 12/06/20 07/03/22 David Beltran DO [address] [place] [address] [address] [place] [address] Consulting Physician INTERNAL MEDICINE 07/04/22 Xiomara Hernandez, WATER CHASER [address] [place] [address], [address] [place] [address] NURSE PRACTITIONER GERONTOLOGY 07/04/22 Domingo Elizabeth MD 3 [facility] [address] [place] [address] Consulting Physician Internal Medicine Pulmonary Disease 07/04/22 Dmitry Laguna MD 3 [facility] [address] [place] [address] Consulting Physician ENDOCRINOLOGY 07/04/22 documented as of this encounter
--- OUTSIDE RECORDS SUMMARY | 2024-09-30 16:31 | XMS_ITS | Encounter Summary ---
Author Organization [facility] Address [address] [place] [address] Care Team Providers Care Director Of Litigation Name Role Phone Cornell Bingham MD Unavailable [phone] Fabrizio Thomason MD Unavailable [phone] Shruthi Modi MD Primary Care Provider [phone] David Beltran DO Unavailable Xiomara Hernandez NP Unavailable [phone] Domingo Elizabeth MD Unavailable [phone] Dmitry Laguna MD Unavailable Unavailable Encounter Details Date Type Department Care Team (Late st Contact Info) Description 02/04/2022 MyChart Message Enc [facility] Medical Group Multispecialty Care - [facility] 3 [facility], [address] [place] [phone] Gideon Rodriguez MD [address] [place], [place] [id number] EMG & injections Social History Tobacco Use Types Packs/Day [...] Sex Assigned at Female 09/01/2024 3:25 PM BOX BLANK MACHINE OPERATOR Legal Sex Female 10:56 PM CDT Gender Identity Female 09/04/2021 12:32 PM BOX BLANK MACHINE OPERATOR Sexual Orientation Straight 09/04/2021 12 :32 PM BOX BLANK MACHINE OPERATOR COVID-19 Exposure Response Date Recorded In the last 10 days, have yo u been in contact with someone who was confirmed or suspected to have Coronavirus/COVID-19? No / Unsure 02/04/2022 12:15 PM CDT documented as of this encounter [...] Author Status No 12/07/2021 4:00 AM CDT [place], Barbara, R N Active documented in this encounter Plan of Treatment Upcoming Encounters Date Type Department Care Team (Late st Contact Info) Description 10/01/2024 8:45 AM BOX BLANK MACHINE OPERATOR Appointment [facility] Outpatient [place] [address] Orlando Devries NP [address] [place] [address] Terese Braga, MAGOR 1 [place] [address] 11/04/2024 9:00 AM CDT Office Visit [facility] Medical Group Multispecialty Care - [facility] 3 [facility] [place] [address] Domingo Elizabeth MD 3 [facility] [address] [place] [address] 11/09/2024 1:15 PM CDT Office Visit [facility] THREE [facility], [address] [place] [address] Radha Valente FNP 3 [facility] [address] [place], [place] [address] documented as of this encounter Visit Diagnoses Not on filedocumented in this encounter Additional Health Concerns Infection Onset Date Last Indicated Resolved Time COVID-19 Rule Out 04/28/2022 04/28/2022 04/28/2022 1:35 PM CDT COVID-19 Rule Out 04/28/2022 04/28/2022 04/28/2022 7:46 PM CDT COVID-19 Rule Out 05/17/2022 05/17/2022 05/18/2022 6:00 PM CDT COVID-19 Rule Out 09/25/2023 09/25/2023 09/25/2023 2:02 PM BOX BLANK MACHINE OPERATOR COVID-19 Rule Out 05/26/2024 05/26/2024 05/26/2024 1:58 PM CDT Assessment Noted Time PHQ-9 Depression Total Score: 15 022 2:20 PM CDT documented as of this encounter Care Teams Director Of Litigation Relationship Specialty Start Date End Date Shruthi Modi MD [facility] [place] [address] PCP - General FAMILY PRACTICE 10/18/21 Cornell Bingham MD Three [facility]. [facility] [address] [place] [address] [place] Roof Cement And Paint Maker CARDIOVASCULAR DISEASE 03/01/19 Fabrizio Thomason MD [address] [place] [address] Referring Physician MEDICAL ONCOLOGY 12/06/20 07/03/22 David Beltran DO [address] [place] [address] [address] [place] [address] Consulting Physician INTERNAL MEDICINE 07/04/22 Xiomara Hernandez, JOHN [address] [place] [address], [address] [place] [address] NURSE PRACTITIONER GERONTOLOGY 07/04/22 Domingo Elizabeth MD 3 [facility] [address] [place] [address] Consulting Physician Internal Medicine Pulmonary Disease 07/04/22 Dmitry Laguna MD 3 [facility] [address] [place] [address] Consulting Physician ENDOCRINOLOGY 07/04/22 documented as of this encounter
== END 2024-09-30 16:45 | disposition left against medical advice (07) ==
DX: R42 Dizziness and giddiness (principal)
CPT/HCPCS: 99199

== ENCOUNTER 2024-10-08 05:29 | Day surgery (SDC) | payer OTHER, SELFPAY ==
[2024-09-29 15:51] VITALS: BMI 23.8
--- NOTE | 2024-09-29 16:04 | PC.NURSE ---
Report to the Outpatient Waiting Room, entrance under the green pavilion located off [facility], at time _0630_ on date _[id number]_. Planned Procedure Time: _0830_.? Time changes happen often and if your time is changed the preop area will call you the afternoon before. - You and your visitor will be asked to self-screen and do not enter if you have any COVID symptoms. Please call surgeon if you need to reschedule. - A mask is optional within the hospital at this time. Patients may have clear liquids (water, carbonated beverages, clear teas, apple juice) until 3 hours prior to surgery with a maximum of 20 ounces. - No food from midnight until time of surgery and no smoking, or chewing tobacco (or any form of nicotine). No chewing gum, candy or mints. Take only the following medications with a SIP of water on the morning of surgery: __Propranolol, Clonidine, Amlodipine, Abilify, inhaler and eye drops. DO NOT STOP ANY OF YOUR OTHER PRESCRIPTION MEDICATIONS PRIOR TO SURGERY EXCEPT THE FOLLOWING Hold all vitamins and supplements for 3 days per anesthesiologist. Medications to discontinue per physician ___Please call and ask Dr Galvin's office if need to hold Meloxicam. Date to take last dose Please no make-up, nail kyrgyz, hairspray, perfume, deodorant, or body powder the day of surgery.? No jewelry (including any body piercings) or valuables the day of surgery, leave them at home.? Please take a shower or bath the night before, or the morning of, surgery with an antibacterial soap.? Wear comfortable, loose fitting clothing.? - Jewelry must be removed prior to entering the operating room.? Rings and piercings that are not removed may be cut off. - The hospital will not accept responsibility for valuables.? - Please leave all valuables, including medications, at home the day of surgery. If you are going home after surgery, a licensed driver guide must drive you home.? - NO public transportation without another adult if you receive anesthesia. - We recommend that an adult stay with you for 24 hours following discharge. - We also recommend that you do not drive, make important decision, drink alcoholic beverages, or take any drugs that were not prescribed by your health care provider for at least 24 hours after your discharge time. Follow any additional instructions given to you from your surgeon. Telephone instructions given to __Kerry___and asked if any additional questions and then verbalized understanding. Patient advised to call surgeon office or pre surgery nurse liaison [phone] if any additional questions.
--- NOTE | 2024-09-30 15:46 | SUR.PREOP ---
1535--Pt here for pre-op labs. Pt states she feels dizzy and light-headed. States she did not feel comfortable to drive, so she had her daughter bring her to the appointment today. Pt states she is diabetic and has continuous glucose monitor. Reports blood sugar around 109 at home prior to coming in, so she took 3 glucose tabs. She was given apple juice by the lab draw tech. Blood sugar around 119. Due to patient complaints of dizziness and light-headedness, along with blood sugar with minimal response to glucose, encouraged patient to be evaluated in the ER. Pt in agreement. Pt was taken to ER triage desk via wheelchair by another PAT RN.
--- NOTE | 2024-10-02 17:29 | PM.IMHP ---
H&P: HPI History of Present Illness Date/Time: 10/02/24 17:29 Chief Complaint: CRISTINE Narrative: symptomatic CRISTINE confirmed on uro-d Review of Systems Review of Systems: All systems reviewed & are unremarkable except as noted in HPI and below PMFSH Family History Family History Mother Diabetes mellitus Hypertension Family history of alcoholism Cerebrovascular accident Father Hypertension Family history of alcoholism Sibling Patient's sister is in good health Social History Social History Years smoked: 22 Smoking status: Former smoker Tobacco type: cigarettes Smoking end date: 01/27/22 Alcohol intake: current Substance use type: marijuana Other substance usage details: Medical marijuana daily Living arrangements: with family Spiritual care concerns: No Meds Home Medications and Allergies Home Medications ?Medication ?Instructions ?Recorded ?Confirmed ?Type amiloride 5 mg tablet 5 mg PO BID 09/29/24 09/29/24 History amlodipine 10 mg tablet 10 mg PO DAILY 09/29/24 09/29/24 History aripiprazole 20 mg tablet 20 mg PO DAILY 09/29/24 09/29/24 History baclofen 10 mg tablet 10 mg PO Q8H PRN spasms 09/29/24 09/29/24 History calcium carbonate 600 mg PO BID 09/29/24 09/29/24 History clonidine HCl 0.1 mg tablet 0.1 mg PO BID 09/29/24 09/29/24 History cyclosporine 0.05 % eye drops in a 1 drp EACH EYE Q12H 09/29/24 09/29/24 History dropperette (Restasis) dextromethorphan IR 45 1 tablet PO BID 09/29/24 09/29/24 History mg-bupropion ER 105 mg biphasic tablet (Auvelity) esketamine 84 mg (28 mg x 3) nasal 84 mg intranasal WEEKLY 09/29/24 09/29/24 History spray (Spravato) fluticasone 250 mcg-salmeterol 50 1 inh inhalation BID 09/29/24 09/29/24 History mcg/dose blistr powdr for inhalation folic acid 1 mg tablet 1 mg PO DAILY 09/29/24 09/29/24 History galcanezumab-gnlm 120 mg/mL 120 mg subcut MONTHLY 09/29/24 09/29/24 History subcutaneous pen injector (Emgality Pen) hydrocodone 5 mg-acetaminophen 325 1 tablet PO Q8H PRN pain 09/29/24 09/29/24 History mg tablet latanoprost 0.005 % eye drops 1 drp EACH EYE HS 09/29/24 09/29/24 History losartan 100 mg tablet 100 mg PO DAILY 09/29/24 09/29/24 History loteprednol etabonate 0.38 % eye 1 drp EACH EYE TID 09/29/24 09/29/24 History gel drops (Lotemax SM) meloxicam 15 mg tablet 15 mg PO DAILY 09/29/24 09/29/24 History metformin 500 mg tablet,extended 500 mg PO BID 09/29/24 09/29/24 History release 24 hr omeprazole 20 mg capsule,delayed 40 mg PO DAILY 09/29/24 09/29/24 History release ondansetron 4 mg disintegrating 4 mg PO Q8H PRN nausea and vomiting 09/29/24 09/29/24 History tablet propranolol 120 mg capsule,24 120 mg PO DAILY 09/29/24 09/29/24 History hr,extended release (Inderal LA) rimegepant 75 mg disintegrating 75 mg PO DAILY PRN migraine 09/29/24 09/29/24 History tablet (Nurtec ODT) headache rosuvastatin 10 mg tablet 10 mg PO HS 09/29/24 09/29/24 History semaglutide 0.25 mg or 0.5 mg (2 0.5 mg subcut WEEKLY 09/29/24 09/29/24 History mg/3 mL) subcutaneous pen injector (Ozempic) sucralfate 1 gram tablet 1 g PO QID 09/29/24 09/29/24 History tenapanor 50 mg tablet (Ibsrela) 50 mg PO BID 09/29/24 09/29/24 History zolpidem 10 mg tablet 10 mg PO HS 09/29/24 09/29/24 History Allergies Allergy/AdvReac Type Severity Reaction Status Date / Time metoclopramide Allergy Severe Other Verified 09/30/24 15:39 Sulfa (Sulfonamide Allergy Severe Anaphylactic Verified 09/30/24 15:39 Antibiotics) Shock droperidol Allergy Intermediate Other Verified 09/30/24 15:39 haloperidol Allergy Intermediate Other Verified 09/30/24 15:39 prochlorperazine Allergy Intermediate Other Verified 09/30/24 15:39 dihydoregotamine Allergy Severe Hypertensio Uncoded 09/30/24 15:39 n Exam Narrative: + urethral mobility Assessment and Plan Assessment and plan (1) CRISTINE (stress urinary incontinence, female): Code(s): N39.3 - Stress incontinence (female) (male) Status: Acute Assessment and Plan: urethral sling
[2024-10-08] VITALS (9 sets, daily range): BP systolic 124–185; BP diastolic 84–108; PULSE 64–70; RESP 12–16; TEMP 36.3–36.4; O2SAT 100
--- OUTSIDE RECORDS SUMMARY | 2024-10-08 05:33 | XMS_ITS | Patient Health Summary ---
Author Organization [facility] Address [address] [place] [address] Care Team Providers Care Copier Repair Technician Name Role Phone Charlene Murillo MD Unavailable [phone] Lenin Frances MD Unavailable [phone] Sylvester Brown MD Unavailable [phone] Cornell Bingham MD Unavailable Pcp, [address] Primary Care Provide r Unavailable Note from [facility],non-owned Affiliates and Associated Physician Practices is amultiple site organization consisting of ambulatory clinics and hospital sitesin [place], [place], [place] and [place]. This disclosure is being madepursuant to the Care Everywhere program and may not contain all information available regarding this patient. Last updated 18.[facility] Allergies * Prochlorperazine(Tolerates phenergan, Feels jittery, like [...] Alwaysverify current medications with the patient. * autpmwrlsy-iekekirtklpee-mwcvovme (FIORICET) 50-300-40 MG capsule Take 1 Cap [...] * vitamin D, ergocalciferol, (DRISDOL) 1.25 MG (58336 UT) capsule Take 50,000 Units by mouth [...] ipratropium (ATROVENT) 0.03 % nasal spray(Started 12/15/2019) [place] 1 spray into each nostril 2 times [...] Comments Blood Pressure 120/74 06/27/2020 11:23 AM [employer] Pulse 60 06/27/2020 11:23 AM [employer] Temperature 35.7 C (96.3 F) 06/27/2020 11:23 AM [employer] [employer] Respiratory Rate 14 06/27/2020 11:23 AM [employer] T[employer] [employer] Oxygen Saturation 100% 06/27/2020 11:23 AM [employer] Inhaled Oxygen Concentration - - Weight 70.8 kg (156 lb) 06/27/2020 11:23 AM [employer] Height 167.6 cm (5' 6 ) 06/27/2020 11:23 AM [employer] Body Mass Index 25.18 06/27/2020 11:23 AM [employer] Procedures * URINALYSIS - POINT OF CARE(Performed [...] pH units Blood UA neg Negative Specific [place] UA POCT 1.020 1.002 - 1.030 Ketone [...] INSURANCE BILL Comment: Z01.419 Z12.31 Performed by [facility] INSURANCE BILL Comment:Francis Croft, Cyto technologist (ASCP) Electronically Signed by [facility] INSURANCE BILL Comment:Hortencia Lamas MD, Pathologist Comment [...] containers..01 ThinPrep Vial Resulting Agency Comment [address] [place] [phone] Natali Whiteside CHIEF WELLNESS OFFICER-RECONCILER LAB - PATHOLOGY/CY TOLOGY ORDERABLES [facility] INSURANCE BILL [address] [place] [address] * COMPREHENSIVE METABOLIC PANEL (10/08/2018 1:18 PM [employer]) Only the most recent of6 resultswithin the [...] [facility] INSURANCE BILL Comment:FASTING 10/08/2018 1:18 PM [employer] 10/08/2018 Narrative Resulting Agency Comment [address] [phone] Williams Avalos MD LAB - CHEMISTRY KAREN HOLLINS [facility] INSURANCE BILL [address] [place] [address] * LIPID PROFILE (10/08/2018 1:18 PM [employer]) Cholesterol 166 <200 mg/dL [facility] INSURANCE BILL Triglycerides 113 <150 mg/dL [facility] INSURANCE BILL HDL Cholesterol 69 >40 mg/dL [facility] INSURANCE BILL VLDL Calculated 23 <=30 mg/dL [facility] INSURANCE BILL LDL Calculated 74 <130 mg/dL [facility] INSURANCE BILL Comment:FASTING 10/08/2018 1:18 PM [employer] 10/08/2018 Narrative Resulting Agency Comment [facility] [address] [facility] [phone] Williams Avalos MD LAB - CHEMISTRY KAREN HOLLINS [facility] INSURANCE BILL [address] [place] [address] * (ABNORMAL) CBC W AUTO DIFFERENTIAL (12/24/2016 7:20 PM CDT) Only the most recent of10 resultswithin the time period is included. Pathologist [facility] WBC 9.1 3.5 - 10.5 10 3/uL [facility] RBC 5.33(H) 3.90 - 5.00 10 6/uL [facility] Hemoglobin 11.1(L) 12.0 - 15.5 g/dL [facility] Hematocrit 33.6(L) 35.0 - 45.0 % [facility] MCV 63.0(L) 81.0 - 97.0 fL [facility] MCH 20.8(L) 28.0 - 34.0 pg [facility] MCHC 33.0 32.0 - 36.0 g/dL [facility] Platelet Count 261 150 - 400 10 3/uL [facility] RDW-SD 41.5 36.0 - 50.0 fL [facility] RDW-CV 18.7(H) 11.2 - 14.8 % [facility] MPV 10.3 9.3 - 12.8 fL [facility] nRBC Absolute 0.00 0 10 3/uL [facility] nRBC Auto 0.0 0 /100 WBC [facility] Neutrophils % 63.6 35.0 - 70.0 % [facility] Lymphocytes % 29.6 19.7 - 55.1 % [facility] Monocytes % 6.1 3.0 - 15.0 % [facility] Eosinophils % 0.6 0.0 - 6.0 % [facility] Basophil % 0.1 0.0 - 1.5 % [facility] Neutrophils Absolute 5.8 1.6 - 7.0 10 3/uL [facility] Lymphocyte Absolute 2.7 0.8 - 2.9 10 3/uL [facility] Monocytes Absolute 0.55 0.14 - 0.66 10 3/uL [facility] Eosinophils Absolute 0.05 0.00 - 0.22 10 3/uL [facility] Basophils Absolute 0.01 0.00 - 0.06 10 3/uL [facility] Immature Granulocytes % 0.4 0.0 - 1.0 % [facility] Blood specimen (specimen) BLOOD SPECIMEN / Unknown 12/24/2016 7:20 PM CDT 12/24/2016 7:24 PM CDT Ivan Villanueva MD LAB - HEMATOLOGY ORD ERABLES [address] [phone] * (ABNORMAL) BASIC METABOLIC PANEL (CALCIUM TOTAL) (12/24/2016 7:20 PM CDT) Only the most recent of3 resultswithin the time period is included. BUN 15 7 - 26 mg/dL [facility] Creatinine 0.5(L) 0.6 - 1.2 mg/dL [facility] Sodium 142 136 - 145 mmol/L [facility] Potassium 4.8(H) 3.5 - 4.5 mmol/L [facility] Comment:Hemolysis detected i n this specimen. Hemolysis is known to cause elevations in this analyte. Caution should be exercised in the interpretation of this result. Recommend repeat testing if clinically indicated. Chloride 106 98 - 107 mmol/L [facility] CO2 26 22 - 29 mmol/L [facility] Glucose 90 70 - 115 mg/dL [facility] Calcium 9.0 8.4 - 10.2 mg/dL [facility] Anion Gap 15 8 - 18 [facility] BUN/Creatinine Ratio 30(H) 7 - 23 [facility] Osmolality Calculated 294 270 - 300 mOsm/kg [facility] eGFR >60 >60 mL/min/1. 73 m2 [facility] Blood specimen (specimen) BLOOD SPECIMEN / Unknown 12/24/2016 7:20 PM CDT 12/24/2016 7:24 PM CDT Ivan Villanueva MD LAB - CHEMISTRY KAREN HOLLINS [facility] Organization Address City/State/ZIP Co de Phone Number [facility] [address] [place] [address] * CT ABDOMEN PELVIS WO CONTRAST (12/24/2016 [...] UA Brown(A) Straw, Yellow, Colorless, Light Yellow [facility] Clarity UA Hazy(A) Clear [facility] Specific [place] UA 1.029 1.001 - 1.030 [facility] pH UA 6.0 5.0 - 8.0 [facility] Protein UA 20 <=20 mg/dL [facility] Comment:Checked Glucose UA Negative Negative mg/dL [facility] Ketone UA Negative Negative mg/dL [facility] Bilirubin UA Negative Negative mg/dL [facility] Blood UA Negative Negative [facility] Nitrite UA Negative Negative [facility] Leukocyte Esterase Negative Negative [facility] Urobilinogen UA 2.0 <2.0 mg/dL [facility] RBC UA 5 0 - 8 /HPF [facility] Bacteria UA Rare Rare, Occasional, None /HPF [facility] Mucus UA Many(A) None /LPF [facility] Hyaline Casts UA 2 0 - 2 /LPF [facility] Calcium Oxalate UA Many(A) Rare, Occasional, Few, None /HPF [facility] Urine specimen (specimen) 12/24/2016 6:10 PM CDT 12/24/2016 6:15 PM CDT Ivan Villanueva MD LAB - [place] [address], [facility] [phone] * CARDIAC EKG ORDER (12/23/2016 10:26 PM [...] - 0.049 ng/mL 12/21/2016 12:37 AM CDT [facility] Blood BLOOD SPECIMEN / Unknown Venipuncture / Unknown 12/21/2016 12/21/2016 12:22 AM CDT Narrative [facility] - 12/21/2016 12:37 AM CDT Note: [...] - CHEMISTRY ORDE RABIGNACIA Performing Organization Address [facility] Co de Phone Number [facility] [address] [place], [place] [id number] * (ABNORMAL) URINALYSIS MICROSCOPIC ONLY (12/20/2016 8:56 PM CDT) Pathologist [facility] RBC UA 2-5 0-2, 2-5 # /hpf 12/20/2016 9:16 PM CDT [facility] WBC UA 5-10(A) 0-2, 2-5 # /hpf 12/20/2016 9:16 PM CDT [facility] Bacteria UA 1+(A) None Seen 12/20/2016 9:16 PM CDT [facility] Epithelial Cell UA 5-10(A) 0-2, 2-5 # /hpf 12/20/2016 9:16 PM CDT [facility] Hyaline Casts 0-2 0 - 2 # /lpf 12/20/2016 9:16 PM CDT [facility] Amorphous Phosphate Crystals 4+(A) None Seen 12/20/2016 9:16 PM CDT [facility] Urine URINE SPECIMEN OBTAINED BY CLEAN CATCH PROCEDURE / Unknown 12/20/2016 8:56 PM CDT 12/20/2016 8:58 PM CDT [facility] LAB - URINALYSIS ORD ERABLES Performing Organization Address [facility] Co de Phone Number [facility] [address] [place], [place] [id number] * EKG 12-LEAD (12/20/2016 8:52 PM CDT) Only the most recent of7 resultswithin the time period is included. Ventricular Rate 83 BPM [facility] Atrial Rate 83 BPM [facility] P-R Interval 148 ms [facility] QRS Duration ms 70 ms [facility] Q-T Interval ms 332 ms [facility] QTC Calculation (Bezet) 390 ms [facility] Calculated P [place] 58 degrees [facility] Calculated R [place] 48 degrees [facility] Calculated T [place] 31 degrees [facility] Interpretation EKG NORMAL SINUS RHYTHM MODERATE VOLTAGE CRITERIA FOR LVH, MAY BE NORMAL VARIANT NONSPECIFIC T WAVE ABNORMALITY ABNORMAL ECG WHEN COMPARED WITH ECG OF 19-DEC-2016 19:53, NO ESSENTIAL CHANGE Confirmed by Claudia Coleman ([id number]) on 12/21/2016 5:30:11 PM [facility] 12/20/2016 8:52 PM CDT 12/21/2016 5:30 PM CDT Boone Nixon DO ECG ORDERABLES Performing Organization Address City/[facility]/ZIP Co de Phone Number [facility] * MAGNESIUM BLOOD (12/20/2016 8:44 PM CDT) [facility] Signature Magnesium 2.3 1.6 - 2.6 mg/dL 12/20/2016 11:15 PM CDT [facility] Blood BLOOD SPECIMEN / Unknown Venipuncture / Unknown 12/20/2016 8:44 PM CDT 12/20/2016 11:08 PM CDT Boone Nixon DO LAB - CHEMISTRY ORDE RABLES Performing Organization Address City/[facility]/ZIP Co de Phone Number [facility] [address] [place] [address] * XR CHEST PA AND LATERAL (12/18/2016 [...] Normal, Adequate platelets 12/13/2016 9:55 PM CDT [facility] Blood BLOOD SPECIMEN / Unknown 12/13/2016 9:24 PM CDT 12/13/2016 9:27 PM CDT Johanna Myers MD LAB - HEMATOLOGY ORD ERABLES [facility] [address] [place] [address] * CT HEAD NON CONTRAST (12/10/2016 5:03 [...] cells are normal DIAGNOSIS: Negative Jone Welch CHIEF WELLNESS OFFICER-RECONCILER CT ORDERABLES * ED CRITICAL CARE (12/10/2016 [...] Yellow, Dark Yellow 12/10/2016 12:59 AM CDT [facility] Clarity UA Cloudy 12/10/2016 12:59 AM CDT [facility] Specific [place] UA 1.017 1.005 - 1.030 12/10/2016 12:59 AM CDT [facility] pH UA 6.0 5.0 - 8.0 pH 12/10/2016 12:59 AM CDT [facility] Protein UA Trace(A) Negative 12/10/2016 12:59 AM CDT [facility] Blood UA Negative Negative 12/10/2016 12:59 AM CDT [facility] Leukocyte UA Negative Negative 12/10/2016 12:59 AM CDT [facility] Nitrite UA Negative Negative 12/10/2016 12:59 AM CDT [facility] Glucose UA Negative Negative 12/10/2016 12:59 AM CDT [facility] Ketone UA Negative Negative 12/10/2016 12:59 AM CDT [facility] Bilirubin UA Negative Negative 12/10/2016 12:59 AM CDT [facility] Urobilinogen UA 1.0 0.1 - 1.0 EU/dL 12/10/2016 12:59 AM CDT [facility] WBC UA Auto 2-5 0-2, 2-5 # /hpf 12/10/2016 12:59 AM CDT [facility] RBC UA Auto 2-5 0-2, 2-5 # /hpf 12/10/2016 12:59 AM CDT [facility] Epithelial Cell UA Auto 2-5 0-2, 2-5 # /hpf 12/10/2016 12:59 AM CDT [facility] Reflex Status Culture not indicated 12/10/2016 12:59 AM T [facility] Urine URINE SPECIMEN OBTAINED BY CLEAN CATCH PROCEDURE / Unknown Collection / Unknown 12/10/2016 12:38 AM CDT 12/10/2016 12:50 AM CDT Yamila Hernández MD LAB - URINALYSIS ORD ERABLES [facility] [address] [place] [address] * (ABNORMAL) DRUG SCREEN TOX URINE PANEL (12/10/2016 12:38 AM CDT) [facility] Amphetamines Screen Urine Not Detected Not Detected 12/10/2016 1:28 AM CDT [facility] Barbiturates Screen Urine Detected(A) Not Detected 12/10/2016 1:28 AM CDT [facility] Benzodiazepines Screen Urine Not Detected Not Detected 12/10/2016 1:28 AM T [facility] Cannabinoids Screen Urine Not Detected Not Detected 12/10/2016 1:28 AM CDT [facility] Cocaine Screen Urine Not Detected Not Detected 12/10/2016 1:28 AM CDT [facility] Methadone Screen Urine Not Detected Not Detected 12/10/2016 1:28 AM T [facility] Opiate Screen Urine Detected(A) Not Detected 12/10/2016 1:28 AM CDT [facility] Phencyclidine Screen Urine Not Detected Not Detected 12/10/2016 1:28 AM T [facility] Urine URINE / Unknown Collection / Unknown 12/10/2016 12:38 AM CDT 12/10/2016 1:13 AM CDT Narrative [facility] - 12/10/2016 1:28 AM CDT This [...] MD LAB - URINE CHEMISTR Y ORDERABLES [facility] [address] [place] [address] * XR CHEST 1VW PORTABLE (05/05/2014 11:33 AM CDT) Anatomical Region Laterality Modality Chest Other Impressions 05/05/2014 3:26 PM CDT Impression: No acute pulmonary process. This report was dictated by Alex Lindsey MD (resident manager) IDr. ROLANDO M.D. have personally reviewed and [...] report was dictated by Alex Lindsey MD (resident manager) I, Dr. ROLANDO PARDO M.D. have personally reviewed and interpreted thisexamination/study. This report was electronically signed by ROLANDO PARDO M.D. on05/05/2014 3:26 PM . Joe Harris MD DIAGNOSTIC IMAGING O RDERABLES * CK + CKMB PANEL (05/05/2014 11:29 AM CDT) [facility] CK Total 144 30 - 200 Units/L [facility] CK-MB 0.5 0.0 - 6.6 ng/mL [facility] Blood specimen (specimen) BLOOD SPECIMEN / Unknown 05/05/2014 11:29 AM CDT 05/05/2014 11:29 AM CDT Joe Harris MD [facility] Organization Address City/State/[facility] Co de Phone Number [address] [phone] * (ABNORMAL) DRUG ABUSE PANEL 10-20+ETHANOL URINE NO CONFIRM (05/05/2014 8:50 AM CDT) [facility] Amphetamines Screen Urine Negative Negative : < 1000 ng/mL [facility] Barbiturates Screen Urine Positive(A) Negative : < 200 ng/mL [facility] Comment: Positive urine barbiturate screening results should be confirmed by another generally accepted non-immunological method such as gas chromatography or mass spectrometry. Benzodiazepine Screen Urine Positive(A) Negative : < 200 ng/mL [facility] Comment: Positive urine benzodiazepine screening results should be confirmed by another generally accepted non-immunological method such as gas chromatography or mass spectrometry. Opiates Urine Negative Negative : < 300 ng/mL [facility] Cocaine Metabolites Urine Negative Negative : < 300 ng/mL [facility] Phencyclidine Screen Urine Negative Negative : < 25 ng/ml [facility] Cannabinoids Screen Urine Negative Negative : <50 ng/mL [facility] Methadone Screen Urine Negative Negative : < 300 ng/mL [facility] Urine specimen (specimen) 05/05/2014 8:50 AM CDT 05/05/2014 8:54 AM CDT Narrative [facility] - 05/05/2014 9:13 AM CDT The Urine Toxicology Screening Panel does not screen for Propoxyphene, Meprobamate, Carisoprodol, Trazodone, jfjj-dnp-psqvefa medications and/or volatiles (Acetone, Isopropanol, Methanol or Ethylene Glycol). Ethanol, Salicylate, Acetaminophen, Tricyclic Antidepressants and several therapeutic drugs may be individually assayed in serum or plasma specimen. Toxicology testing by the [facility] is an aid to medical diagnosis and treatment of patients. No documented chain of custody was maintained. Results are intended to be used for clinical purposes only. Joe Harris MD LAB - URINE CHEMISTR Y ORDERABLES Performing Organization Address City/[facility]/ZIP Co de Phone Number [address] [phone] * (ABNORMAL) RBC MORPHOLOGY (05/05/2014 8:06 AM CDT) Anisocytosis 1+(A) None [facility] Microcytes 3+(A) None [facility] Target Cells Few(A) None [facility] Ovalocytes Few(A) None [facility] Blood specimen (specimen) BLOOD SPECIMEN / Unknown 05/05/2014 8:06 AM CDT 05/05/2014 8:46 AM CDT Joe Harris MD LAB - HEMATOLOGY ORD ERABLES Performing Organization Address [facility] Co de Phone Number [address] [phone] Care Teams Copier Repair Technician Relationship Specialty Start Date End Date [facility] - General 09/14/24 Charlene Murillo MD [address] [facility] [address] [place] [address] Consulting Physician Pulmonary Disease 04/09/18 Lenin Frances MD [address] [facility] [address] [place] [address] Pain Management Anesthesiology 10/08/18 Sylvester Brwon MD [address] [place] [address] Psychiatry 12/23/18 Cornell Bingham MD [address] [place] [address] Cardiovascular Disease 06/15/19
--- OUTSIDE RECORDS SUMMARY | 2024-10-08 05:33 | XMS_ITS | Continuity of Care Document ---
Author Name [facility] Organization [facility] Care Team Providers Care Director Diabetes Name Role Phone [facility] Unavailable Unavailable Problems Combined list of problems [...] Active Condition DoD abnormal electrocardiogram Active Condition [facility] ACP Staging Stage 2 Hypertension: Greater Than Or = 160/100 Active Condition DoD essential hypertriglyceridemia Active Condition DoD esophagitis chronic reflux Active Condition DoD urinary symptoms Active Condition [facility] visit for: laboratory Active Condition [facility] Patient Counseling: Active Condition Do D taking medication for a long time analgesics opiates Active Condition DoD edema Active Condition DoD conditions influencing health status Active Condition [facility] visit for: administrative purpose Inactive Condition Do D delirium [Sx] Active Condition [facility] Laboratory Studies Inactive Condition Do D visit for: follow-up exam Active Condition [facility] anemia Active Condition DoD depression Active Condition DoD arthritis Active Condition [facility] visit for: issue repeat prescription for medication [...] ated to tobacco use. recent CXR from [facility] normal. Will check PFT to eval [...] Diaz tomorrow . Dr Diaz's phone is [phone]. Address [address] [place] [address]. [place]. Please authorize all visits,tests,candice tments,procedures and [...] to take NSAIDs and being evaluated by director internal audit this week. I would not use vasoconstrictors [...] Order Date Order Qty Source AJOVY SYRINGE ([facility]), 225 MG/1.5, SYRINGE, SUBCUT, [employer] Fredio, 1.5 ml SYRINGE Active [id number] 2023 1.5 Pharmac y Data Transac tion Service Facilit y ALBUTEROL SULFATE HFA (albuterol sulfate), 90 MCG, HFA AER AD, INHALATION, LUPIN PHARMACEU, 8.5 g CANISTER Active [id number] 4 2023 8.5 Pharmac y Data Transac tion Service Facilit y AMOXICILLIN (amoxicilli n), 875 MG, TABLET, ORAL, [facility]/ IKMA, 100 ea. BOTTLE Active [id number] 4 2023 14 Pharmac y Data Transac tion Service Facilit y ARIPIPRAZOL E (aripiprazo le), 20 MG, TABLET, ORAL, AJANTA PHARMA L, 30 ea. BOTTLE Cancele d [id number] : 2023 0 Pharmac y Data Transac tion Service Facilit y ARIPIPRAZOL E (aripiprazo le), 20 MG, TABLET, ORAL, [facility], 500 ea. BOTTLE Active [id number] 4 2023 30 Pharmac y Data Transac tion Service Facilit y ARIPIPRAZOL E (aripiprazo le), 20 MG, TABLET, ORAL, AUROBINDO PHARM, 30 ea. BOTTLE Cancele d [id number] : 2023 0 Pharmac y Data Transac tion Service Facilit y AUVELITY (dextrometh orphan HBr/bupropi on HCl), 45MG-105MG, TAB IR ER, ORAL, AXSOME THERAPEU, 30 ea. BOTTLE Active [id number] 2023 60 Pharmac y Data Transac tion Service Facilit y Cefpodoxime Proxetil (Cefpodoxim e Proxetil), 200mg, Tablet, Oral, Sandoz, 20 Ea. Bottle Active [id number] 2023 20 Pharmac y Data Transac tion Service Facilit y CEFUROXIME (CEFUROXIME AXETIL), 250 MG, TABLET, ORAL, AUROBINDO PHARM, 60 ea. BOTTLE Active [id number] 2023 20 Pharmac y Data Transac tion Service Facilit y CIPROFLOXAC IN HCL (CIPROFLOXA SAIDA HCL), 500MG, TABLET, ORAL, PACK PHARMACEUT, 100 ea. BOTTLE Active [id number] 4 2023 10 Pharmac y Data Transac tion Service Facilit y CLONIDINE HCL (clonidine HCl), 0.1 MG, TABLET, ORAL, [employer]., 1000 ea. BOTTLE Active [id number] 2023 60 Pharmac y Data Transac tion Service Facilit y ESTRADIOL (estradiol) , 0.01 %, CREAM/APPL, VAGINAL, PADAGIS, 42.5 g TUBE Cancele d [id number] : 2023 0 Pharmac y Data Transac tion Service Facilit y GAVILYTE-C (PEG 3350/NA SULF,BICARB ,CL/KCL), 240-22.72G, SOLN RECON, ORAL, GAVIS PHARMACEU, 4000 ml BOTTLE Active [id number] 2023 4000 Pharmac y Data Transac tion Service Facilit y HYDROCODONE -ACETAMINOP HEN (HYDROCODON E/ACETAMINO PHEN), 10MG-325MG, TABLET, ORAL, MALLINCKROD T PH, 500 ea. BOTTLE Active [id number] 4 2023 112 Pharmac y Data Transac tion Service Facilit y HYDROCODONE -ACETAMINOP HEN (HYDROCODON E/ACETAMINO PHEN), 7.5-325MG, TABLET, ORAL, MALLINCKROD T PH, 500 ea. BOTTLE Active [id number] 2023 100 Pharmac y Data Transac tion Service Facilit y JARDIANCE (EMPAGLIFLO ZIN), 10 MG, TABLET, ORAL, BOEHRINGER ING., 30 ea. BOTTLE Active [id number] 2023 30 Pharmac y Data Transac tion Service Facilit y LATANOPROST (LATANOPROS T), 0.005%, DROPS, OPHTHALMIC, GALLEGOS PHARMACE, 2.5 ml DROP BTL Active [id number] 4 2023 2.5 Pharmac y Data Transac tion Service Facilit y LINZESS (LINACLOTID E), 290 MCG, CAPSULE, ORAL, FOREST PHARMACE, 30 ea. BOTTLE Active [id number] 2023 30 Pharmac y Data Transac tion Service Facilit y LOTEMAX SM (lotepredno l etabonate), 0.38 %, DROPS GEL, OPHTHALMIC, BAUSCH & LOMB I, 5 g DROP BTL Cancele d [id number] : 2023 0 Pharmac y Data Transac tion Service Facilit y METFORMIN HCL ER (metformin HCl), 500 MG, TAB ER 24H, ORAL, GRANULES PHARMA, 500 ea. BOTTLE Active [id number] 4 2023 120 Pharmac y Data Transac tion Service Facilit y ONDANSETRON ODT (ONDANSETRO N), 4MG, TAB RAPDIS, ORAL, GLENMARK PHARMA, 30 ea. BLIST PACK Active [id number] 4 2023 15 Pharmac y Data Transac tion Service Facilit y ONETOUCH ULTRA TEST STRIP (blood sugar diagnostic) , STRIP, [employer], Splash.FMCAN, 25 ea. BOX Active [id number] 2023 25 Pharmac y Data Transac tion Service Facilit y PREDNISOLON E ACETATE (PREDNISOLO NE ACETATE), 1%, DROPS SUSP, OPHTHALMIC, GALLEGOS PHARM, 5 ml DROP BTL Active [id number] 4 2023 5 Pharmac y Data Transac tion Service Facilit y PROPRANOLOL HCL (PROPRANOLO L HCL), 120 MG, CAP SA 24H, ORAL, BRECKENRIDG E, 100 ea. BOTTLE Cancele d [id number] : 2023 0 Pharmac y Data Transac tion Service Facilit y PROPRANOLOL HCL ER (propranolo l HCl), 120 MG, CAP SA 24H, ORAL, [employer], 100 ea. BOTTLE Active [id number] 2023 30 Pharmac y Data Transac tion Service Facilit y ROSUVASTATI N CALCIUM (rosuvastat in calcium), 10 MG, TABLET, ORAL, [facility] PHARMA, 90 ea. BOTTLE Active [id number] 2023 30 Pharmac y Data Transac tion Service Facilit y SUCRALFATE (SUCRALFATE ), 1G, TABLET, ORAL, [employer] [facility], 500 ea. BOTTLE Cancele d [id number] : 2023 0 Pharmac y Data Transac tion Service Facilit y URIBEL (methenamin e/methylene blue/sod phos/p.sali cylate/hyos cyamine), 118-10-36, CAPSULE, ORAL, [facility]., 100 ea. BOTTLE Active [id number] 2023 12 Pharmac y Data Transac tion Service Facilit y ZOLPIDEM TARTRATE (ZOLPIDEM TARTRATE), 10MG, TABLET, ORAL, AUROBINDO PHARM, 100 ea. BOTTLE Active [id number] 2023 30 Pharmac y Data Transac tion Service Facilit y ZOLPIDEM TARTRATE (ZOLPIDEM TARTRATE), 10MG, TABLET, ORAL, AUROBINDO PHARM, 100 ea. BOTTLE Cancele d [id number] : 02/25/ 2024 0 Pharmac y Data Transac tion Service Facilit y ZOLPIDEM TARTRATE (ZOLPIDEM TARTRATE), 10MG, TABLET, ORAL, AUROBINDO PHARM, 100 ea. BOTTLE Active [id number] 2023 30 Pharmac y Data Transac tion Service Facilit y ZOLPIDEM TARTRATE (ZOLPIDEM TARTRATE), 10MG, TABLET, ORAL, AUROBINDO PHARM, 100 ea. BOTTLE Active [id number] 2023 30 Pharmac y Data Transac tion Service Facilit y Allergies, Adverse Reactions, Alerts Combined list of allergies from Department of Defense and Veterans Affairs facilities. It does not include entries that were removed or entered in error. Substance Category Reaction Severity Reaction type Status Date Reported Comments Source COMPAZINE Drug allergy (disorder ) Unknown active 3 [place] [address] HALDOL (HALOPERIDOL LACTATE) Drug allergy (disorder ) Rash or Itch active [address] [place] [address] IMITREX Drug allergy (disorder ) Unknown active 3 [place] [address] METOCLOPRAMIDE HCL Drug allergy (disorder ) Unknown active 3 [place] [address] SULFA-DRUGS Drug allergy (disorder ) Unknown active 3 [place] [address] TORADOL (KETOROLAC TROMETHAMINE) Drug allergy (disorder ) Stomach Ulcers active [address] [place] [address] Immunizations Combined list of available immunizations from the Department of Defense and Veterans Affairs facilities. Immunization Series Date Given Administered By Site Reaction Lot Number CVX Code Drug Custodian Athletic Equipment Status Comments Source influenza virus vaccine, split virus (incl. purified surface antigen)-reti red CODE 2 2009 Unknown, Provider 15 Transcribed (TRS) complet ed influenza virus vaccine, split virus (incl. purified surface antigen)- retired CODE DoD influenza virus vaccine, split virus (incl. purified surface antigen)-reti red CODE 1 2005 Unknown, Provider [id number] Sanofi Pasteur (PMC) complet ed influenza virus vaccine, split virus (incl. purified surface antigen)- retired CODE [facility] tetanus and diphtheria toxoids, adsorbed, preservative free, for adult use (2 Lf of tetanus toxoid and 2 Lf of diphtheria toxoid) 1 2004 Unknown, Provider [id number] 09 Sanofi Pasteur (PMC) complet ed tetanus and diphtheri a toxoids, [...] DC Date Status Disposition Source [employer](ZZF amily Practice) OUTPATIENT [id number] Hands swollen and area of kindney s JESSICA Jenkins 07/21 Released w/o Limitations [employer](Z ZFamily Practic e) [employer] [facility]) OUTPATIENT [id number] h/a,CHELSEA Vega 12/21 Immediate Referral [employer](A cute Care Clinic) [employer] [facility] OUTPATIENT [id number] migrain e, bp elevate d EVER_NOEMY BOSS OSMAN M 01/21 Released w/o Limitations [employer](A cute Care Clinic) [employer] [facility] te Care Clinic) OUTPATIENT [id number] EDGAR CASTRO 01/23 Immediate Referral [employer](A [facility] Care [facility]) [employer]([facility] Practice Contract) OUTPATIENT [id number] blood pressur e DODD-CATARINO CAPELLAN 01/30 Released w/o Limitations [employer](F amily Practic e Contrac t) [employer]([facility] Practice Contract) OUTPATIENT [id number] f/u htn, review labs, review meds SHANTELL BEGUM 02/06 Immediate Referral [employer](F amily Practic e Contrac t) [employer]([facility] Practice Contract) OUTPATIENT [id number] f/u on BP per SHANTELL Kim 02/07 Released w/o Limitations [employer](F amily Practic e Contrac t) [employer]([facility]) OUTPATIENT [id number] HTN f/u per SHANTELL Kim A 02/13 Released w/o Limitations [employer](F amily Practic e Contrac t) [employer]([facility] te [facility]) OUTPATIENT [id number] migrain e, elevate d BP RAE TRUJILLO 04/02 Immediate Referral [employer]([facility]) [employer]([facility] Contract) OUTPATIENT [id number] follow- up,BP,r efill,t est resul CATARINO ROMAN S 05/15 Released w/o Limitations [employer](F amily Practic e Contrac t) [employer] OUTPATIENT [id number] headach e GV_OSMAN WOODSON 05/25 Released w/o Limitations [employer]([facility]) [employer]([facility]) OUTPATIENT [id number] back pain , headach e YOUSIF-CATARINO CAPELLAN S 06/01 Released w/o Limitations [employer](F amily Practic e Contrac t) [employer]([facility]) OUTPATIENT [id number] back pain- migrain e Eleazar KRISHNAN 06/04 Released w/o Limitations [employer](Z ZFamily Practic e) [employer]([facility] Contract) OUTPATIENT [id number] headeac he CATARINO ROMAN S 06/12 Released w/o Limitations [employer](F amily Practic e Contrac t) [employer]([facility]) OUTPATIENT [id number] migrain e MADAI HUFF 06/18 Released w/o Limitations [employer](A cute Care [facility]) [employer]) OUTPATIENT [id number] Fill Premari n and B/P check SHASHANK HOLBROOK 06/18 Released w/o Limitations [employer](G ynecolo gy) [employer]([facility]) OUTPATIENT [id number] head/ne ck pain ASHLEYCHELSEA ROMANO 06/21 Released w/o Limitations [employer](A [facility] Care [facility]) [employer](u te Care Clinic) OUTPATIENT [id number] abd pain ASHLEY CHELSEA Kenisha 06/29 Released w/o Limitations [employer]([facility]) [employer]([facility]) OUTPATIENT [id number] leg pain DANYEL HASSAN Natalie 07/02 Released w/o Limitations [employer]( ZFamily Practic e) [employer] [id number] Possibl e right breast nodule RADHAKAMALJIT 07/17 Released w/o Limitations [employer](S urgical Clinic) [employer](u te Care Clinic) OUTPATIENT [id number] elevate d RAE Pinto 09/05 Left Against Medical Advice [employer] [employer]([facility]) OUTPATIENT [id number] f/u htn,glynn oing abd discomf ort Eleazar KRISHNAN 09/06 Released w/o Limitations [employer](RUSTamily Practic e) [employer]([facility]) OUTPATIENT [id number] stomach pain/si de pain EDGAR CASTRO 09/09 Released w/o Limitations [employer]([facility] Care [facility]) [employer]([facility]) OUTPATIENT [id number] f/u abd discomf ort post u/s Eleazar KRISHNAN 09/12 Released w/o Limitations [employer]( ZFamily Practic e) [employer]([facility]) OUTPATIENT [id number] fell on wood, madhu nail EMERALD ABRAMS 09/25 Released w/o Limitations [employer]( ZFamily Practic e) [employer] OUTPATIENT [id number] abdomin al pain in the right upper belly (RUQ) KAMALJIT GARCIA 09/25 Released w/o Limitations [employer](S urgical Clinic) [employer]([facility] Practice Contract) OUTPATIENT [id number] SHANTELL BEGUM 09/25 Released w/o Limitations [employer](F amily Practic e Contrac t) [employer]([facility] Practice) OUTPATIENT [id number] [facility] ROBINSONLUCIAEleazar 10/10 Released w/o Limitations [employer](Z ZFamily Practic e) [employer]([facility]) OUTPATIENT [id number] RADHA, KAMALJIT J 10/11 Released w/o Limitations [employer](S urgical Clinic) [employer]([facility]) OUTPATIENT [id number] follow- up surgery KAMALJIT GARCIA Misti 10/25 Released w/o Limitations [employer](S urgical Clinic) [employer]([facility]) OUTPATIENT [id number] migrain e GV_NOEMY GERAOSMAN Kenisha 12/07 Released w/o Limitations [employer](A cute Care Clinic) [employer]([facility]) OUTPATIENT [id number] sinus infecti on Eleazar KRISHNAN 01/02 Released w/o Limitations [employer](Z ZFamily Practic e) [employer](Aud iology Clinic) OUTPATIENT [id number] removal FB ANGEL DELACRUZ 01/02 Released w/o Limitations [employer](A udiolog y Clinic) [employer]([facility]) OUTPATIENT [id number] Migrain e RAE TRUJILLO 01/09 Immediate Referral [employer]([facility]) [employer]([facility]) OUTPATIENT [id number] Burning in sinuses RAE TRUJILLO 01/13 Released w/o Limitations [employer]([facility]) [employer] OUTPATIENT [id number] f/u ER/HTN Crisis SHAGUFTA SMITH 02/06 Sick at Home/Quarter s [employer](Z ZFamily Practic e) [employer]([facility]) OUTPATIENT [id number] h/a, high blood pressur e, heart palpata SAMIRA Patel 02/21 Released w/o Limitations [employer]([facility] Care Clinic) [employer]([facility]) OUTPATIENT [id number] HTN SHAGUFTA SMITH C 02/26 Released w/o Limitations [employer](Z ZFamily Practic e) [employer]([facility]) OUTPATIENT [id number] f/u on BP SHAGUFTA SMITH C 03/25 Released with Work/Duty Limitations [employer](Z ZFamily Practic e) [employer]([facility]) OUTPATIENT [id number] f/u UTI SHAGUFTA SMITH C 04/03 Released with Work/Duty Limitations [employer](Z ZFamily Practic e) [employer]([facility]) OUTPATIENT [id number] abd pain NUNU FULLER S 04/09 Released w/o Limitations [employer](Z ZFamily Practic e) [employer]([facility]) OUTPATIENT [id number] pt still have prb.or related kidney stone EMERALD ABRAMS 05/10 Released w/o Limitations [employer](Z ZFamily Practic e) [employer]([facility]) OUTPATIENT [id number] f/u ct/back pain NUNU FULLER S 05/24 Released w/o Limitations [employer](Z ZFamily Practic e) [employer]([facility]) TELE CONSULT [id number] Headach e, double vision, elevate d B/P DANYEL HASSAN 06/04 [employer](Z ZFamily Practic e) [employer]([facility]) OUTPATIENT [id number] Rx renewal NUNU FULLER S 06/10 Released w/o Limitations [employer](Z ZFamily Practic e) [employer]([facility]) OUTPATIENT [id number] back pain JONNY NUNU S 06/27 Released w/o Limitations [employer](F ast Track Clinic) [employer]([facility]) OUTPATIENT [id number] med refill NUNU FULLER S 07/10 Released w/o Limitations [employer](Z ZFamily Practic e) [employer]([facility] Practice Contract) OUTPATIENT [id number] Rx renewal SAMIRA CLARK D 08/06 Released w/o Limitations [employer](F amily Practic e Contrac t) [facility] [id number] follow up ED AGGARWAL Mansi 04/17 Released w/o Limitations [employer](F amily Practic e Blue) [employer]([facility] megan Practice Blue) TELE CONSULT [id number] MEDS MARISSA GAMBOA R 09/22 [employer](F amily Practic e Blue) [facility] megan Practice Blue) OUTPATIENT [id number] f/u HTN SHAQUILLE HERR D 10/10 Released w/o Limitations [employer](F amily Practic e Blue) [facility] megan Practice Blue) TELE CONSULT [id number] pt scratch ed her eye and is swollen , and painful ., MARISSA GAMBOA R 10/13 [facility](F amily Practic e Blue) [facility]) OUTPATIENT [id number] poked left eye KAMALJIT SEXTON W 10/14 Released w/o Limitations [facility](O ptometr y Clinic) [facility]) OUTPATIENT [id number] follow up for corneal abrasio n KAMALJIT SEXTNO W 10/16 Released w/o Limitations [facility](O ptometr y Clinic) [facility] megan Practice Blue) TELE CONSULT [id number] referra l was denied for pain managem ent; need referra l retroac tive for an appt MARISSA GAMBOA R 10/20 [employer](F amily Practic e Blue) [facility] megan Practice Blue) TELE CONSULT [id number] REFERRA L FOR MIGRAIN ES SHAQUILLE HERR D 10/28 [facility](F amily Practic e Blue) [facility] megan Practice Blue) TELE CONSULT [id number] MED REFILL SHAQUILLE HERR D 10/30 [facility](F amily Practic e Blue) [facility] megan Practice Blue) TELE CONSULT [id number] pt use to be on a blood pressur e med before it was switche d; that one worked SHAQUILLE HERR 12/16 [facility](F amily Practic e Blue) [address] [place] [address]([facility] megan Practice Blue) OUTPATIENT [id number] ER f/u appt SHAQUILLE HERR 12/18 Released w/o Limitations [facility](F amily Practic e Blue) [address] [place] [address] Group([facility] megan Practice Blue) TELE CONSULT [id number] keshia s- pt needs injecti on and er would not give her injecti on MARISSA GAMBOA R 01/31 [facility](F amily Practic e Blue) [address] [place] [address](Soc ial Work Clinic) OUTPATIENT [id number] CCS EMERALD ART R 02/06 Released w/o Limitations [address] [place] [address](S ocial Work Clinic) [address] [place] [address]([facility] megan Practice Blue) TELE CONSULT [id number] pt. needs meds. that were perscri bed by dif. doc., but the doc. no longer .... SHAQUILLE HERR 02/13 [facility](F amily Practic e Blue) [address] [place] [address]([facility] megan Practice Blue) TELE CONSULT [id number] referra l for chavo walkin for vomitin g and diarrhe a; also pt needs med renewal s ED AGGARWAL 05/14 [facility](F amily Practic e Blue) [address] [place] [address]([facility] megan Practice Blue) TELE CONSULT [id number] pt has appt 06/10, needs one sooner for physch meds f/u, needs appt for 06/01 SHAQUILLE HERR 05/20 [facility](F amily Practic e Blue) [address] [place] [address]([facility] megan Practice Blue) TELE CONSULT [id number] pt calling to speak with NEMESIO, pt's bloodpr essure is high,he adache SHAQUILLE HERR 06/10 [facility](F amily Practic e Blue) [address] [place] [address]([facility] megan Practice Blue) TELE CONSULT [id number] in need of f/u appt,la bs and HTN meds RADDEN, SHAQUILLE D 06/15 [employer](F amily Practic e Blue) [facility] TELE CONSULT [id number] pt calling kulwant weiss KENNETH Rodriguez was not there when she went to apple picker refills RADDEN, SHAQUILLE D 06/23 [employer](F amily Practic e Blue) [facility] OUTPATIENT [id number] f/u polypha rmacy;p ain mgmt RADDEN, SHAQUILLE D 07/03 Released w/o Limitations [employer](F amily Practic e Blue) [facility] megan Practice Blue) TELE CONSULT [id number] DR. ARTEAGA trying to contact pt's pcm, kulwant weiss pt's medicat ion RADDEN, SHAQUILLE D 07/06 [facility](F amily Practic e Blue) [facility] TELE CONSULT [id number] pt needs f/u to er visit 07/28 for high blood pressur e and migrain es LUCA, VESTA 07/29 [facility](F amily Practic e Blue) [facility] megan Practice Blue) TELE CONSULT [id number] med refill for aldacto ne and metopro lol- on back ordered RADDEN, SHAQUILLE D 09/01 [facility](F amily Practic e Blue) [facility] megan Practice Blue) TELE CONSULT [id number] pt has had excessi ve hot and colds sweats, SOB, and weaknes s past 2wks RADDEN, SHAQUILLE D 11/18 [employer](F amily Practic e Blue) [facility] megan Practice Blue) OUTPATIENT [id number] f/u RADDEN, SHAQUILLE D 11/30 Released w/o Limitations [facility] [facility]) [facility]) OUTPATIENT [id number] HELEN KING D 12/08 Released w/o Limitations [facility]) [facility] megan Practice Blue) TELE CONSULT [id number] Needs referra l to walk in clinic for all over swellin g and joint pain MARISSA GAMBOA 12/09 [facility] Pract[facility] Blue) [facility](Fam megan Practice Blue) TELE CONSULT [id number] Med refill GONSALO LARSON Jennifer 02/24 [facility] Practic e Blue) [facility](Fam megan Practice Red) TELE CONSULT [id number] needs meds refills BLANCA CHARLES 10/13 [facility] Practic e Red) [facility] Blue) TELE CONSULT [id number] Med refills BLANCA CHARLES 12/05 [facility] Practic [facility] Blue) [facility] Practice Red) OUTPATIENT [id number] fu meds BLANCA CHARLES 12/15 Released w/o Limitations [facility] Practic e Red) [facility] Practice Red) TELE CONSULT [id number] anemia off base labs-- please repeat BLANCA CHARLES 02/22 [facility] Practic e Red) [facility] me[facility] Practice Red) TELE CONSULT [id number] Elevate d WBCs BLANCA CHARLES 03/17 [facility] Practic e Red) [facility] Practice Red) TELE CONSULT [id number] pain managem ent referra MARISSA Cadet 03/23 [facility] Practic e Red) [facility] Blue) TELE CONSULT [id number] Pt needs f/u appt due to abn labs from [facility] ED visit BLANCA CHARLES 05/05 [facility] Pract[facility] Blue) [facility] Red) TELE CONSULT [id number] ED visit for migrain JOHN PAUL Ivy 06/12 [facility] Practic e Red) [facility] Red) TELE CONSULT [id number] referra alondra herron doc in box for severe migrain es MARISSA GAMBOA R 06/12 [facility] Practic e Red) [facility]) OUTPATIENT [id number] Slurred speech, weaknes s after visit to ED JOHN PAUL US 06/12 Released w/o Limitations [facility]) [facility]) OUTPATIENT [id number] Pt missed appt and recentl y dc'ed for htn RADUMER SHAQUILLE D 06/22 Released w/o Limitations [facility] Practic [facility] Blue) [facility](Fam megan Practice Red) TELE CONSULT [id number] Neurolo gy eval JOHN PAUL US 06/22 [facility] Practic e Red) [facility] Blue) TELE CONSULT [id number] Desires refill of Procard ia XL 60mg and Tenormi n 50mg SHAQUILLE HERR D 07/17 [facility]) [facility] TELE CONSULT [id number] update SINCERE GUILLEN 07/20 [facility]) [facility]) OUTPATIENT [id number] f/u HTN; Migrain es SHAQUILLE HERR D 07/26 Released w/o Limitations [facility] Pract[facility]) [facility] TELE CONSULT [id number] Admit to case managem ent/car e coordin ation care plan SINCERE GUILLEN 07/26 [facility]) [facility]) TELE CONSULT [id number] Pt needs pain medicat ion CLARICE HERRICA D 08/09 [facility] Practic e Blue) [facility] Blue) TELE CONSULT [id number] Desires refill of Atenolo l,Adala t and Fentany l patch PAULINO MANRIQUE 08/15 [facility] Pract[facility] Blue) [facility] me[facility] Practice Red) TELE CONSULT [id number] Med refill and counselor dormitory rashmi MAGENJOHN PAUL 08/17 [facility] Pract[facility]) [facility] Blue) TELE CONSULT [id number] Pt desires refill of Oxycodo ne and Fentany l patch SHAQUILLE HERR D 08/21 [facility]) [facility] [place] OUTPATIENT [id number] monthly acuity note SICNERE GUILLEN 08/22 Released w/o Limitations [facility] [place] [facility] TELE CONSULT [id number] update SINCERE GUILLEN 08/22 [facility]) [facility] [id number] update SINCERE GUILLNE 09/11 [facility] Pract[facility] Red) [facility] TELE CONSULT [id number] med refill - pt out today XIOMARA, ALIDAN A 09/12 [facility]) [facility] [place]) OUTPATIENT [id number] monthly acuity note SINCERE GUILLEN 09/19 Released w/o Limitations [facility] [place] [facility] TELE CONSULT [id number] med refill and referra l or appt XIOMARA, ALIDAN A 10/05 [facility]) [facility] megan Practice Blue) TELE CONSULT [id number] Meds/Ca ll-back XIOMARA, ALIDAN A 10/06 [facility]) [facility] megan Practice Blue) TELE CONSULT [id number] ALL MEDS NOT PICKED UP XIOMARA, ALIDAN A 10/06 [facility]) [facility] OUTPATIENT [id number] JOANNA SMYTH 10/20 Released w/o Limitations [facility]) [facility] Red) TELE CONSULT [id number] Med refill SHAQUILLE HERR 10/25 [facility]) [facility]) TELE CONSULT [id number] Pt's fentena l patch Rx was cancele d by Dr Herr Pt wants to know why. SHAQUILLE HERR 10/27 [facility] Pract[facility]) [facility] me[facility] Practice Red) TELE CONSULT [id number] Pt called kulwant veras for Choco patch. Pt seen in ER. DENG SOLANO 10/30 [facility] Practic e Red) [facility] Blue) TELE CONSULT [id number] after hours call SHAQUILLE HERR 11/02 [facility] Practic e Blue) [facility] TELE CONSULT [id number] Follow- up ARTURO BUTT 11/17 [facility]) [facility] OUTPATIENT [id number] ARTURO BUTT 11/20 Released w/o Limitations [facility]) [facility] TELE CONSULT [id number] Follow- up ARTURO BUTT 12/07 [facility]) [facility] OUTPATIENT [id number] ARTURO BUTT 12/20 Released w/o Limitations [facility]) [facility] Blue) TELE CONSULT [id number] Medicat ion Refill- -pt has no BP medicat ion DENG SOLANO 01/11 [facility] Blue) [facility] Blue) TELE CONSULT [id number] request for mail order pharmac y script to be complet ed by CELESTINA Thomas 01/17 [facility]) [facility] Practice Blue) TELE CONSULT [id number] med refill CELESTINA CORNEJO 04/27 Referred for Appointment [facility]) [facility] Practice Blue) TELE CONSULT [id number] labs SHAQUILLE HERR 05/07 [facility]) [facility] Practice Blue) TELE CONSULT [id number] pt would like med refill for nexium- apt is jul 03 SHAQUILLE HERR 05/30 [facility]) [facility] Practice Blue) TELE CONSULT [id number] med refill UMAIR BEASLEY 07/10 [facility]) [facility] Practice Blue) OUTPATIENT [id number] f/u HTN and reflux, needs refill of meds UMAIR BEASLEY 07/26 Released w/o Limitations [facility]) [facility]) TELE CONSULT [id number] Needs f/u appt from hospita lizJANE Mccormick 06/07 [facility]) [facility]) TELE CONSULT [id number] Apt Line- pt says she needs a new referra l to pain managme nt JANE DANIEL 06/11 [facility]) [facility] [employer]) TELE CONSULT [id number] 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 JANE DANIEL 06/14 [facility](D over [facility] [employer] ) [facility]) TELE CONSULT [id number] no-show appt yesterd ay, needs resched fadi KIMBERLY IDALIA KRISHNAE 06/19 Referred for Appointment [facility]) [facility] [employer]) TELE CONSULT [id number] BP concern s ASHLEY HOLBROOK 06/24 Referred for Appointment [facility](D over [facility] [place]) [facility]) OUTPATIENT [id number] blood pressur e JANE DANIEL 06/26 Released w/o Limitations [facility]) [facility]) OUTPATIENT [id number] WALKIN- -BP Check 1st day JANE DANIEL 07/01 Released w/o Limitations [facility]) [facility]) TELE CONSULT [id number] f/u labs JANE DANIEL 07/03 Referred for Appointment [facility]) [facility]) TELE CONSULT [id number] appt line - pt calling for bloodwo rk results from today 1 JANE DANIEL 07/05 [facility]) [facility]) OUTPATIENT [id number] f/u HTN JANE DANIEL 07/17 Released w/o Limitations [facility]) [facility]) OUTPATIENT [id number] Annual PAP AMAN MUSA 08/02 Released w/o Limitations [facility]( y[facility] Clinic) [facility]) TELE CONSULT [id number] pap results receive AZAEL Biswas 08/14 Referred for Appointment [facility]) [facility]) TELE CONSULT [id number] Apt Line - med refill nexium -40mg - lotrel- 10/40mg and coreg 40mg ASHLEY HOLBROOK 09/25 Referred for Appointment [facility]) [facility]) TELE CONSULT [id number] Notes Entered by: DARYN FLORES KEISHA 20 Nov 2011 1617 ------- ------- ------- ------- -- Moses cantu to Dr Anny PINKDinora for migrain lucia MCKEONSON ASHLEY 11/19 Referred for Appointment [facility]) [facility] [employer]) TELE CONSULT [id number] Notes Entered by: SUSAN DESAI 17 Jun 2012 0954 ------- ------- ------- ------- -- VVC-ref erral request MARISSA GAMBOA 06/17 Referred for Appointment [facility](D over [facility] [employer]) [facility] [employer] [place]) TELE CONSULT [id number] Notes Entered by: SUSAN DESAI 30 Jun 2012 0812 ------- ------- ------- ------- -- VVC-ref erral request ANGEL AUGUSTIN 06/30 [facility](D over [facility] [employer]) [facility] [employer] [place]) TELE CONSULT [id number] Notes Entered by: SUSAN DESAI 20 Jul 2012 0958 ------- ------- ------- ------- -- Referra cantu request MARISSA GAMBOA 07/20 Other Not Elsewhere Classified [facility](D over [facility] [employer]) [facility]) TELE CONSULT [id number] Notes Entered by: SUSAN DESAI 29 Jul 2012 1159 ------- ------- ------- ------- -- VVC-med MARGARITO Payne 07/29 Referred for Appointment [facility]) [facility]) TELE CONSULT [id number] Notes Entered by: PRIETO ESPITIA 14 Aug 2012 1612 ------- ------- ------- ------- -- Network Results -Endosc opy Operati ve Report JANE DANIEL 08/14 [facility]) [facility] [employer] [place]) TELE CONSULT [id number] Notes Entered by: Natalie JOVEL 07 Oct 2012 1454 ------- ------- ------- ------- -- Med refill NITISH VALADEZ 10/07 Referred for Appointment [facility](D over [facility] [employer]) [facility] [employer] [place]) TELE CONSULT [id number] Notes Entered by: NITISH DE LA TORRE 15 Dec 2012 0758 ------- ------- ------- ------- -- VVC-Med ication Refill JENNIE SIMPSON 12/15 Referred for Appointment [facility](D over [facility] [employer]) [facility]) OUTPATIENT [id number] initial appt w/pcm for blood pressur e medicat ion JANE DANIEL 01/26 Released w/o Limitations [facility]) [facility]) TELE CONSULT [id number] Notes Entered by: SAGE HILARIO SA 29 Jan 2013 0902 ------- ------- ------- ------- -- Appt Made pt LUIS Falnnery 01/29 Referred for Appointment [facility]) [facility]) OUTPATIENT [id number] Back Stiffne ss JANE DANIEL 02/15 Released w/o Limitations [facility]) [facility]) TELE CONSULT [id number] Notes Entered by: HARRIET DANIEL 17 Feb 2013 1830 ------- ------- ------- ------- -- VVC message JANE DANIEL 02/17 [facility]) [facility] [employer]) TELE CONSULT [id number] Notes Entered by: YAKOV HAMILTON 23 Feb 2013 1452 ------- ------- ------- ------- -- [facility] JUDD HAMILTON 02/23 [facility](D over [facility] [employer] ) [facility]) TELE CONSULT [id number] Notes Entered by: HARRIET DANIEL 24 Feb 20132000 ------- ------- ------- ------- -- VVC message ALIYA OLIVEIRA 02/25 Referred for Appointment [facility]) [facility]) TELE CONSULT [id number] Notes Entered by: Eleazar WALL 05 Apr 2013 1706 ------- ------- ------- ------- -- VVC -referr JENNIE Flower 04/05 [facility]) [facility]) TELE CONSULT [id number] Notes Entered by: HARRIET DANIEL 16 Apr 2013 1637 ------- ------- ------- ------- -- VVC JANE DANIEL 04/16 [facility]) [facility]) OUTPATIENT [id number] f/u blood pressur e mediati on JANET MUKHERJEE 07/05 Released w/o Limitations [facility]) [facility] er [facility] [employer] [place]) TELE CONSULT [id number] Notes Entered by: LIZ BOTELLO 01 Nov 2013 1507 ------- ------- ------- ------- -- Backdat ed referPREETI Nowak 11/[address] [place] [address](D over [facility] [employer]) [facility] er [facility] [employer] [place]) TELE CONSULT [id number] Notes Entered by: Pamela GARZA 05 Nov 2013 1428 ------- ------- ------- ------- -- Network Results : Radiolo gy Report- CT Abdomen - 4 GREER JOVEL 11/[address] [place] [address](D over [facility] [employer]) [address] [place] [address]([facility] [employer] [place]) TELE CONSULT [id number] Notes Entered by: NITISH DE LA TORRE 17 Nov 2013 1007 ------- ------- ------- ------- -- [facility] Message -Medica DAMIAN Castellano 11/17 Referred for Appointment [address] [place] [address](D over [facility] [employer]) Procedures Combined list of: 1) Procedures from Department of Veterans Affairs facilities going back up to thelast 18 months, not all VA non-surgical procedures are included; 2) All procedures from the Department of Defense facilities. Procedure Procedure Type Code Date Perfomer Comments Sour e FOOT, ADJUSTABLE SHOE-STYLED POSITIONING DEVICE 002 DoD HANDLING AND/OR CONVEYANCE OF SPECIMEN FOR TRANSFER FROM THE OFFICE TO A LABORATORY 001 DoD OPHTHALMOLOGICAL SERVICES: MEDICAL EXAMINATION AND EVALUATION WITH INITIATION OF DIAGNOSTIC AND TREATMENT PROGRAM; INTERMEDIATE, NEW PATIENT 000 DoD LAPAROSCOPY 997 DoD TRANSFUSION OF PACKED CELLS 997 DoD OTHER BILATERAL ENDOSCOPIC DESTRUCTION OR OCCLUSION OF FALLOPIAN TUBES 996 DoD EXCISION OF OTHER LESION OF SOFT TISSUE OF HAND 996 [facility] ELECTROCARDIOGRAM, ROUTINE ECG WITH AT LEAST 12 LEADS; WITH INTERPRETATION AND REPORT 013 [facility] SCREENING PAPANICOLAOU SMEAR; OBTAINING, PREPARING AND CONVEYANCE OF CERVICAL OR VAGINAL SMEAR TO LABORATORY [facility] BLOOD PRESSURE MEASURED (CKD)(DM) [facility] ELECTROCARDIOGRAM, ROUTINE ECG WITH AT LEAST 12 LEADS; WITH INTERPRETATION AND REPORT DoD COORDINATED CARE FEE, MAINTENANCE RATE DoD COORDINATED CARE FEE, MAINTENANCE RATE DoD COORDINATED CARE FEE, MAINTENANCE RATE DoD COORDINATED CARE FEE, MAINTENANCE RATE DoD COORDINATED CARE FEE, MAINTENANCE RATE [facility] SCREENING PAPANICOLAOU SMEAR; OBTAINING, PREPARING AND CONVEYANCE OF CERVICAL OR VAGINAL SMEAR TO LABORATORY [facility] INTERPRETATION OR EXPLANATION OF RESULTS OF PSYCHIATRIC, OTH MEDICAL EXAMS/PROCEDURES, OR OTH ACCUMULATED DATA TO FAMILY OR OTH RESPONSIBLE PERSONS,OR ADVISING THEM HOW TO ASSIST PATIENT [facility] OPHTHALMOLOGICAL SERVICES: MEDICAL EXAMINATION AND EVALUATION, WITH INITIATION OR CONTINUATION OF DIAGNOSTIC AND TREATMENT PROGRAM; INTERMEDIATE, ESTABLISHED PATIENT [facility] OPHTHALMOLOGICAL SERVICES: MEDICAL EXAMINATION AND EVALUATION WITH INITIATION OF DIAGNOSTIC AND TREATMENT PROGRAM; INTERMEDIATE, NEW PATIENT [facility] SMOKING AND TOBACCO USE CESSATION COUNSELING VISIT; INTERMEDIATE, GREATER THAN 3 MINUTES UP TO 10 MINUTES [facility] HEALTH AND BEHAVIOR INTERVENTION, EACH 15 MINUTES, [id number]; GROUP (2 OR MORE PATIENTS) [facility] EDUCATIONAL SUPPLIES, SUCH BOOKS, TAPES, AND PAMPHLETS, FOR THE PATIENT'S EDUCATION AT COST TO PHYSICIAN OR OTHER QUALIFIED HEALTH MANAGER BUILDING [facility] HEALTH AND BEHAVIOR INTERVENTION, EACH 15 MINUTES, [id number]; GROUP (2 OR MORE PATIENTS) [facility] EDUCATIONAL SUPPLIES, SUCH BOOKS, TAPES, AND PAMPHLETS, FOR THE PATIENT'S EDUCATION AT COST TO PHYSICIAN OR OTHER QUALIFIED HEALTH MANAGER BUILDING [facility] SERVICE(S) PROVIDED ON AN EMERGENCY BASIS IN THE OFFICE, WHICH DISRUPTS OTHER SCHEDULED OFFICE SERVICES, IN ADDITION TO BASIC SERVICE [facility] INDIVIDUAL PSYCHOTHERAPY, INSIGHT ORIENTED, BEHAVIOR MODIFYING AND/OR SUPPORTIVE, IN AN OFFICE OR OUTPATIENT FACILITY, APPROXIMATELY 45 TO 50 MINUTES [id number] WITH THE PATIENT [facility] ANALYSIS OF CLINICAL DATA STORED IN COMPUTERS (EG, ECGS, BLOOD PRESSURES, HEMATOLOGIC DATA) [facility] NONINVASIVE EAR OR PULSE OXIMETRY FOR OXYGEN SATURATION; SINGLE DETERMINATION [facility] ANALYSIS OF CLINICAL DATA STORED IN COMPUTERS (EG, ECGS, BLOOD PRESSURES, HEMATOLOGIC DATA) [facility] ANALYSIS OF CLINICAL DATA STORED IN COMPUTERS (EG, ECGS, BLOOD PRESSURES, HEMATOLOGIC DATA) [facility] ELECTROCARDIOGRAM, ROUTINE ECG WITH AT LEAST 12 LEADS; WITH INTERPRETATION AND REPORT DoD INJECTION, MEPERIDINE AND PROMETHAZINE HCL, UP TO 50 MG DoD INJECTION, KETOROLAC TROMETHAMINE, PER 15 MG DoD REMOVAL IMPACTED CERUMEN REQUIRING INSTRUMENTATION, UNILATERAL [facility] THERAPEUTIC, PROPHYLACTIC OR DIAGNOSTIC INJECTION (SPECIFY MATERIAL INJECTED); SUBCUTANEOUS OR INTRAMUSCULAR [facility] SCREENING PAPANICOLAOU SMEAR; OBTAINING, PREPARING AND CONVEYANCE OF CERVICAL OR VAGINAL SMEAR TO LABORATORY DoD INJECTION, MEPERIDINE HCL, PER 100 MG DoD CHEMOTHERAPY ADMINISTRATION, SUBCUTANEOUS OR INTRAMUSCULAR, WITH OR WITHOUT LOCAL ANESTHESIA DoD ELECTROCARDIOGRAM, ROUTINE ECG WITH AT LEAST 12 LEADS; WITH INTERPRETATION AND REPORT DoD INJECTION, PROMETHAZINE HCL, UP TO 50 MG [facility] ELECTROCARDIOGRAM, ROUTINE ECG WITH AT LEAST 12 LEADS; INTERPRETATION AND REPORT ONLY DoD INJECTION, PROMETHAZINE HCL, UP TO 50 MG DoD INJECTION, MEPERIDINE HCL, PER 100 MG [facility] PHYS/OTH QUALIFIED HEALTH MANAGER BUILDING QUALIFIED,EDUCATION, TRAIN,LICENSURE/REGU LATION (WHEN APPLICABLE) EDUC SER RENDERED TO PATS IN A GRP SETTING (EG,,OBESITY ,OR DIABETIC INSTRUCT) DoD NONINVASIVE EAR OR PULSE OXIMETRY FOR OXYGEN SATURATION; SINGLE DETERMINATION DoD NONINVASIVE EAR OR PULSE OXIMETRY FOR OXYGEN SATURATION; SINGLE DETERMINATION DoD SUPP &MATERIAL (EXCEPT SPECTACLE),PROVID,TH E PHYS/OTH QUALIFIED HEALTH MANAGER BUILDING OVER &ABOVE THOSE USUALLY INCLD W THE OFFICE VISIT/OTH SER RENDERED (LIST DRUG,TRAYS,SUPP,OR MATERIAL PROVID) [facility] PHYS/OTH QUALIFIED HEALTH MANAGER BUILDING QUALIFIED,EDUCATION, TRAIN,LICENSURE/REGU LATION (WHEN APPLICABLE) EDUC SER RENDERED TO PATS IN A GRP SETTING (EG,,OBESITY ,OR DIABETIC INSTRUCT) [facility] HOSPITALIST SERVICES (LIST SEPARATELY IN ADDITION TO CODE FOR APPROPRIATE EVALUATION AND MANAGEMENT SERVICE) [facility] [facility] HOSPITALIST SERVICES (LIST SEPARATELY IN ADDITION TO CODE FOR APPROPRIATE EVALUATION AND MANAGEMENT SERVICE) [facility] HOSPITALIST SERVICES (LIST SEPARATELY IN ADDITION TO CODE FOR APPROPRIATE EVALUATION AND MANAGEMENT SERVICE) [facility] ELECTROCARDIOGRAM, ROUTINE ECG WITH AT LEAST 12 LEADS; INTERPRETATION AND REPORT ONLY [facility] CATHETERIZATION, URETHRA; SIMPLE [facility] INTRAVENOUS PYELOGRAM [facility] VENOUS CATHETERIZATION, NOT ELSEWHERE CLASSIFIED [facility] EXPLORATORY LAPAROTOMY [facility] OTHER CYSTOSCOPY [facility] OTHER UNILATERAL SALPINGO-OOPHORECTOM Y [facility] INJECTION OF ANTIBIOTIC [facility] COMPUTERIZED AXIAL TOMOGRAPHY OF ABDOMEN [facility] OTHER OPERATIONS ON CUL-DE-SAC [facility] SUBTOTAL ABDOMINAL HYSTERECTOMY [facility] MEDICAL NUTRITION THERAPY; RE-ASSESSMENT AND INTERVENTION, INDIVIDUAL, [id number] WITH THE PATIENT, EACH 15 MINUTES [facility] MEDICAL NUTRITION THERAPY; RE-ASSESSMENT AND INTERVENTION, INDIVIDUAL, [id number] WITH THE PATIENT, EACH 15 MINUTES [facility] EXCISION OF BONE CYST OR BENIGN TUMOR, WING OF ILIUM, SYMPHYSIS PUBIS, OR GREATER TROCHANTER OF FEMUR; SUPERFICIAL, INCLUDES AUTOGRAFT, WHEN PERFORMED [facility] THERAPEUTIC OR DIAGNOSTIC INJECTION (SPECIFY MATERIAL INJECTED); INTRAVENOUS [facility] MEDICAL NUTRITION THERAPY; INITIAL ASSESSMENT AND INTERVENTION, INDIVIDUAL, [id number] WITH THE PATIENT, EACH 15 MINUTES [facility] Electrocardiogram Electrocardiogram [id number] 01/27 013 JANE DANIEL [facility] Screening papanicolaou smear; obtaining, preparing and conveyance of cervical or vaginal smear to laboratory 011 AMAN MUSA [facility] Electrocardiogram Electrocardiogram 26232 06/26 011 JANE DANIEL [facility] Coordinated care fee, maintenance rate 010 ARTURO BUTT [facility] Coordinated care fee, maintenance rate 010 ARTURO BUTT [facility] Coordinated care fee, maintenance rate 010 JOANNA SMYTH [facility] Coordinated care fee, maintenance rate 010 SINCERE GUILLEN [facility] Coordinated care fee, maintenance rate 010 SINCERE GUILLEN [facility] Screening papanicolaou smear; obtaining, preparing and conveyance of cervical or vaginal smear to laboratory 008 HELEN MATHEWS [facility] Social Work Family Medial Psychother Without Patient Guardians Social Work Family Medial Psychother Without Patient Guardians [phone] EMERALD ART [facility] Smoking and tobacco use ce ation counseling visit; 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, greater than 3 minutes up to 10 minutes 007 SHAQUILLE HERR Ophthalmological Prior Patient Start Intermediate Level Care Ophthalmological Prior Patient Start Intermediate Level Care [id number] KAMALJIT SEXTON [facility] Ophthalmological New Patient Start Intermediate Level Care Ophthalmological New Patient Start Intermediate Level Care [id number] KAMALJIT SEXTON Services Provided On An Emergency Basis In The Office 007 KAMALJIT SEXTON Chemotherapy Intramuscular Injection Chemotherapy Intramuscular Injection [id number] 004 RAE TRUJILLO Electrocardiogram Electrocardiogram [id number] 01/23 004 EDGAR CASTRO [facility] Physician Supervised Injection Physician Supervised Injection 31204 Eleazar KRISHNAN Injection, meperidine HCl, per 100 mg Eleazar KRISHNAN [facility] Injection, meperidine and promethazine HCl, up to 50 mg MUSHLIN, MADAI Give Demerol 25 mg IM Can Coverer Pnenergan 12.5mg IM DoD Physician Supervised Injection Intramuscular Physician Supervised Injection Intramuscular 73063 DARIA MADAI [facility] Cerumen Removal Left Ear ANGEL DELACRUZ [facility] Physician Supervised Infusion (non-Chemo) Initial Hour Physician Supervised Infusion (non-Chemo) Initial Hour 07751 RAE TRUJILLO Physician Supervised Infusion (non-Chemo) Each Additional Hours Physician Supervised Infusion (non-Chemo) Each Additional Hours 33543 RAE TRUJILLO Physician Supervised Injection Intravenous Physician Supervised Injection Intravenous 43467 RITTER, RAE A DoD Injection, meperidine and promethazine HCl, up to 50 mg SHAGUFTA SMITH DoD ECG 12-Lead ECG 12-Lead 43625 SAMIRA CLARK DoD Social History Combined list of available smoking, tobacco, and other social history from Department of Defense and Veterans Affairs facilities. Social History Type Response Date Comment Sour e This section is an empty social history section. DoD
--- OUTSIDE RECORDS SUMMARY | 2024-10-08 05:33 | XMS_ITS ---
Author Organization [facility] [employer] Address [address] [place] [address] Care Team Providers Care Lighting Engineering Technician Name Role Phone Ly FIGUEROA, Shruthi Primary Care Provider Unavailab Nicholas Barber Unavailable [phone] Laith Haji Unavailable [phone] Allergies Allergen (clinical drug ingredient) Drug/Non Drug [...] Drug Allergy 12/12/2023 Active REASON FOR VISIT Spravato Treatment, rates their depression as a 6 out of 10, Esketamine Administration Medications Medication SIG (Take, Route, Frequency, Duration) Notes Start Date End Date Status Spravato (84 MG Dose) 28 MG/DEVICE 3 sprays in each nostril Nasally once a week for 1 days 09/28/2024 Active Atomoxetine HCl 40 MG 1 capsule in the morning Orally Once a day for 14 days 09/28/2024 10/12/2024 Active ARIPiprazole 20 MG 1 tablet Oral Once a day for 30 days Active Auvelity 45-105 MG 1 tablet Oral twice a day for 30 days Active Qelbree 200 MG 2 capsules once a day for 7 days, 1 capsule once a day for 7 days Oral see sign for 14 days *Reorder from [facility] for eRx and Interaction Alerts* Active Esomeprazole Magnesium 40 MG TAKE 1 CAPSULE BY MOUTH EVERY DAY Oral for 30 Days Active amLODIPine Besylate 10 MG Oral for 30 Days Active HYDROcodone-Acetami nophen 5-325 MG Oral 12/12/2023 Active Zolpidem Tartrate 10 MG 1 tablet at bedtime as needed Oral Once a day for 30 days As needed 09/28/2024 Active Baclofen 10 MG TAKE 1 TABLET BY MOUTH THREE TIMES DAILY NEEDED Oral for 28 Days Active Meloxicam 15 MG TAKE 1 TABLET BY MOUTH DAILY Oral for 28 Days Active Rosuvastatin Calcium 10 MG Oral for 30 Days Active Losartan Potassium 100 MG Oral for 30 Days Active cloNIDine HCl 0.1 MG Oral for 30 Days Active Propranolol HCl ER 120 MG Oral for 30 Days Active metFORMIN HCl ER 500 MG TAKE 2 TABLETS BY MOUTH TWICE DAILY WITH MEALS Oral for 30 Days Active aMILoride HCl 5 MG Oral for 30 Days Active Fluticasone-Salmete rol 250-50 MCG/ACT INHALE 1 PUFF INTO THE LUNGS TWICE DAILY Inhalation for 30 Days Active Emgality 120 MG/ML ADMINISTER 1 ML UNDER THE SKIN EVERY 30 DAYS Subcutaneous for 30 Days Active Ozempic (0.25 or 0.5 MG/DOSE) 2 MG/3ML INJECT 0.5 MG UNDER THE SKIN ONCE A WEEK DIRECTED Subcutaneous for 28 Days Active Eliquis 5 MG 1 tablet Orally twice a day Active Estradiol 0.1 MG/GM Vaginal for 30 Days Active Gemtesa 75 MG 1 tablet Orally Once a day Active Auvelity 45-105 MG 1 tablet Oral twice a day for 30 days 07/02/2024 Active Ibsrela 50 MG 1 tablet immediately before meals Orally Twice a day Active Spravato (84 MG Dose) 28 MG/DEVICE INHALE 84MG PER NASAL ROUTE EVERY WEEK for 7 days Active Atomoxetine HCl 80 MG 1 capsule in the morning Orally Once a day for 30 days 09/28/2024 11/27/2024 Active Social History Sex Assigned At : Social History Observation Description Sex Assigned At Female Vital Signs Blood pressure systolic 125 mm Hg 10/05/19 25 Blood pressure diastolic 86 mm Hg 025 Heart Rate 68 /min 10/05/2024 Height 66.50 in 10/05/2024 Oximetry 95 % 10/05/2024 Height-cm 168.91 cm 10/05/2024 Encounters Encounter Location Date Provider Diagnosis [facility] [employer] [address] [place] [address] 10/05/2024 Laith Raissa Major depressive disorder, recurrent severe without psychotic features F33.2 Assessments Encounter Date Diagnosis (ICD Code) Assessment Notes Treatment Notes Treatment Clinical Notes Section Notes 10/05/2024 Major depressive disorder, recurrent severe without psychotic features (ICD-10 - F33.2) 10/05/2024 Other continue current treatment as prescribed by primary psychiatric care provider. 1. Anxiety - Patient rates anxiety as 02/24. - Plan: a. Continue current anxiolytic medication regimen. b. Encourage discussion of anxiety triggers and coping strategies in therapy. c. Reassess anxiety level at next visit. 2. Suicidal Ideation and Self-Harm/ depression - patient rates depression 01/25. - PHQ-9: on 09/28/24: 8 - Patient denies thoughts of suicide or self-harm. - Plan: a. Continue monitoring for changes in mood or suicidal ideation. b. Encourage reporting any thoughts of self-harm or suicide to therapist or healthcare provider. 3. Homicidal Ideation - Patient denies thoughts of hurting others. - Plan: a. Continue monitoring for changes in mood or homicidal ideation. b. Encourage reporting any thoughts of harming others to therapist or healthcare provider. 4. Psychotic Symptoms - Patient denies hallucinations, delusions, or paranoia. - Plan: a. Continue monitoring for emergence of psychotic symptoms. b. Adjust treatment plan if symptoms arise. 5. Sleep - Patient reports average of 6 hours of sleep per night. - Plan: a. Encourage good sleep hygiene practices. b. Consider sleep aid if issues persist or worsen. 6. Appetite - Patient rates appetite as 01/25. - Plan: a. Encourage balanced diet and regular meal schedule. b. Monitor appetite at future visits and address concerns. 7. Medication Management - Patient reports no new medications or changes in regimen. - Plan: a. Continue current medication regimen. b. Reassess effectiveness and side effects at next visit. 8. Physical Complaints - Patient reports no new physical complaints. - Plan: a. Encourage reporting any new physical symptoms or concerns to healthcare provider. 9. Therapy - Patient currently in therapy with Yesenia Cooley. - Plan: a. Encourage regular attendance of therapy sessions. b. Collaborate with therapist for coordinated care and treatment plan alignment. c. Document frequency of therapy sessions at next visit. Plan Of Treatment Treatment Notes Assessment Notes Other continue current vladimir atment as prescribed by primary psychiatric care provider. Next Appt Details Follow Up: 11/12/2024 @ 3:30 PM, Reason: david/ Nicholas Provider Name:Laith Haji, 10/15/2024 01:00:00 PM, [facility], [address], [address], Provider Name:Laith Haji, 10/29/2024 01:00:00 PM, [facility] [address], [address], Provider Name:Laith Haji, 11/05/2024 01:15:00 PM, [facility], [place], [address], Provider Name:Nicholas dominguez, 11/12/2024 03:30:00 PM, [facility], [facility] [address], [place], [address], Medications Administered Medication Instructions Date of Administration Dosage Notes Spravato (84 MG Dose) 10/05/2024 84 mg Progress Notes * TRISTEN BOYDEDOB:1970 (54 yo F)Acc No.[id number]:10/05/2024 Patient: COLIN POLO Provider: RICO QuiñonezHNP :1970 A ge:54 Y S ex:Female Date:10/05/2024 Address:[address] [place], [place] [id number] Pcp:Shruthi Modi MD Subjective: * Chief Complaints: * S pravato TreatmentRates their depression as a 6 out of 10Esketamine Administration * HPI: G eneral Follow Up: 1 Review patient medical records, any recent test results, last visit summary, etc Y es1 Time spent 2 2 Greet patient and escort to the treatment room N o3 Initial Obtained vital signs Y es3 Time spent 1 4 Prepare equipment and supplies Y es4 Time spent 2 5 Reviewed and documented history and medication Y es5 Time spent 2 6 Evaluate patient's clinical status [relevant history/physical assessment] and determine readiness/appropriateness of treatment Y es6 Time spent 2 7 Confirm orders and review plans with staff Y es7 Time spent 1 8 Ensure appropriate positioning for administration, observe patient administration, ensure patient comfort and safety Y es8 Time spent 2 9 Obtained vital signs: Assess treatment tolerance [...] clinical stability/discharge readiness Y es12 Time spent 1 13 Write a prescription or Reviewed RX for next session and submit to pharmacy N o14 Provide patient education/instruction/ Y es14 Time spent 2 15 Coordinate home-going [that is, discharged to escorted transportation] N o16 Complete medical record documentation Y es16 Time spent 1 017 cleaning of room/equipment by clinical staff N o18 complete medical record documentation; complete and submit rems patient monitoring form N oI attest to the total time spent Before, During and after ecounter was (in Minutes) 4 0 The note is transcribed using speech recognition software. It is a reflection of a visit with the patient. It might have some inaccuracy, including medication names and transcribing errors, though efforts have been made to correct them. HPI: The patient rates their anxiety and depression as a 6/10, rates her anxiety 7 out of 10. They deny any suicidal ideation, homicidal ideation, hallucinations, delusions, or paranoia. Sleep has decreased to 6 hours per night. The patient is currently engaged in therapy with Yesenia Cooley. No new physical complaints are reported. Medications: No new medications or medication changes are reported. Sleep: The patient reports sleeping 6 hours per night, which represents a reduction in sleep duration. Other Symptoms: The patient denies any hallucinations, delusions, or paranoia. No new physical complaints are reported. P sychotherapy Information: Psychotherapy History C urrently in therapy Y es N marta of therapist Jennifer Merchant sketamine Administration: Esketamine administration T nina at the start of administration 1 :08 PM T nina of discharge 3 :08 PM P atdiane must be monitored for at least 2 hours Y es W as the patient clinically ready for discharge prior to the required 2-hour: N o s taff Notes about today's Visit P atdiane will be picked up by Sun. She said the last time she ate was around 10:00 AM this morning. She said she has not had any concerns or issues since her last treatment. Esketamine Nasal [place] Administration and Supervised monitoring Staff attending the patient Maryann Lee Supervising provider as in rendering provider : RICO PalmerHNP Is patient taking any of the following concomitant medication that may cause sedation of blood pressure changes Benzodiazepine No Non-benzodiazepine sedative-hypnotics: Yes Psychostimulant: No Monoamine oxidase inhibitors [MAOIs]: No Dose of Spravato: 84 Mg Lot number [id number] Date: 01/15/2027. * ROS: G eneral / Constitutional: Fatigue d enies. D izziness D enies. S edation?Denies. s pinning sensation D eneis. G astrointestinal: Nausea d enies. V omiting d enies. P sychiatric: Anxiety a dmits. A uditory / visual hallucinations d enies. D elusions d enies. S uicidal thoughts d enies. D issociations D enies. E xcited D enies. * Medical History: * Surgical History: * Hospitalization/Major Diagno stic Procedure: * Medications: T akingZolpidem Tartrate 10 MG Tablet 1 tablet at bedtime as needed Oral Once a day As neededQelbree 200 MG Capsule Extended Release 24 Hour 2 capsules once a day for 7 days, 1 capsule once a day for 7 days Oral see sign , Notes to Pharmacist: *[facility] and Interaction Alerts*ARIPiprazole 20 MG Tablet 1 tablet Oral Once a day Auvelity 45-105 MG Tablet Extended Release 1 tablet Oral twice a day Spravato (84 MG Dose) 28 MG/DEVICE Solution Therapy Pack 3 sprays in each nostril Nasally once a week Atomoxetine HCl 40 MG Capsule 1 capsule in the morning Orally Once a day , stop date 10/12/2024tomoxetine HCl 80 MG Capsule 1 capsule in the morning Orally Once a day , stop date 11/27/2024Spravato (84 MG Dose) 28 MG/DEVICE Solution Therapy [...] (0.25 or 0.5 MG/DOSE) 2 MG/3ML Solution Pen- injector INJECT 0.5 MG UNDER THE SKIN ONCE [...] Oral amLODIPine Besylate 10 MG Tablet Oral HYDROcodone-Acetaminophen 5-325 MG Tablet Oral Esomeprazole Magnesium 40 MG Capsule Delayed Release TAKE 1 CAPSULE BY MOUTH EVERY DAY Oral Medication List reviewed and reconciled with the patientTaking Zolpidem Tartrate 10 MG Tablet 1 tablet at bedtime as needed Oral Once a day As neededTaking Qelbree 200 MG Capsule Extended Release 24 Hour 2 capsules once a day for 7 days, 1 capsule once a day for 7 days Oral see sign , Notes to Pharmacist: *Reorder from [facility] for eRx and Interaction Alerts*Taking ARIPiprazole 20 MG Tablet 1 tablet Oral Once a day Taking Auvelity 45-105 MG Tablet Extended Release 1 tablet Oral twice a day Taking Spravato (84 MG Dose) 28 MG/DEVICE Solution Therapy Pack 3 sprays in each nostril Nasally once a week Taking Atomoxetine HCl 40 MG Capsule 1 capsule in the morning Orally Once a day , stop date 10/12/2024Taking Atomoxetine HCl 80 MG Capsule 1 capsule in the morning Orally Once a day , stop date 11/27/2024Taking Spravato (84 MG Dose) 28 MG/DEVICE Solution [...] (0.25 or 0.5 MG/DOSE) 2 MG/3ML Solution Pen- injector INJECT 0.5 MG UNDER THE SKIN ONCE [...] Taking HYDROcodone-Acetaminophen 5-325 MG Tablet Oral Taking Esomeprazole Magnesium 40 MG Capsule Delayed Release TAKE 1 CAPSULE BY MOUTH EVERY DAY Oral Medication List reviewed and reconciled with the patient * Allergies: N SAIDS (NON-STEROIDAL ANTI-INFLAMMATORY DRUG): Allergy - Onset Date 12/12/2023.H.E.45: Allergy - Onset Date 12/12/2023TORADOL: Allergy - Onset Date 12/12/2023SULFA (SULFONAMIDE ANTIBIOTICS): Allergy - Onset Date 12/12/2023Haldol: Allergy - Onset Date 12/12/2023Imitrex: Allergy - Onset Date 04/26/2024Reglan: Allergy - Onset Date 12/12/2023ompazine: Allergy - Onset Date 12/12/2023no[Allergies Verified] Objective: * Vitals: B P: 139/84 mm Hg,139/91 mm Hg,125/86mm Hg, HR: 63 /min,69 /min,68/min, Oxygen sat %: 90 %,95 %,95%, Ht: 66.50 in, Ht-cm: 168.91 cm. * [...] or delusions. M ental Status Examination: Patient reports an anxiety severity of 7/10. pt reports her depression is a 6/10. Denies suicidal ideation, self-harm, and homicidal ideation. Denies hallucinations, delusions, and paranoia. Sleeps approximately six hours per night. Therapy: Currently attending therapy sessions with Yesenia Cooley. Vital Signs: see note. Diagnostic Test Results and Labs: PHQ-9: on 09/28/24: 8. Assessment: * Assessment: 1. M ajor depressive disorder, recurrent severe without psychotic features - F33.2 (Primary)? Plan: * Treatment: * Therapeutic Injections: Spravato 84 mg : [...] THE USUAL SERVICE, ON T, Units: 4.00 * Follow Up: @ 3:30 PM (Reason: w/ Nicholas) * Billing Information: * Visit Code: 68721 OFFICE OUTPATIENT VISIT 40 MINUTES COMPREHENSIVE HISTORY AND EXAM/HIGH MEDICAL DECISION MAKING. * Procedure Codes: 41848 PROLONGED OFFICE OR OTHER OUTPATIENT EVALUATION AND MANAGEMENT SERVICE(S) (BEYOND THE TOTAL TIME OF THE PRIMARY PROCEDURE WHICH HAS BEEN SELECTED USING TOTAL TIME), REQUIRING TOTAL TIME WITH OR WITHOUT DIRECT PATIENT CONTACT BEYOND THE USUAL SERVICE, ON T. Units: 4.00. * RACT ATTORNEY Sign off status: Completed true * Provider: EITAN Quiñonez Date: 10/05/2024 Generated for Jessica weiss/Bairon/eTransmitting on: 0 10/08/2024 05:33 AM CONTRACT ATTORNEY History and Physical Notes * HPI (History of Present Illness) Category Sub-Category Detail Notes Category Not es Esketamine Administration Esketamine administration Time at the start of administratio n: 1:08 PM Esketamine Nasal [place] Administration and Supervised monitoring Staff attending the patient Maryann Lee Supervising provider as in rendering provider : EITAN Palmer Is patient taking any of the following concomitant medication that may cause sedation of blood pressure changes Benzodiazepine No Non-benzodiazepine sedative-hypnotics: Yes Psychostimulant: No Monoamine oxidase inhibitors [MAOIs]: No Dose of Spravato: 84 Mg Lot number [id number] Date: 01/15/2027 Time of discharge: 3:08 PM Patient must be monitored fo r at least 2 hours: Yes Was the patient clinically r carolina for discharge prior to the required 2-hour:: No staff Notes about today's Visit: Patient will be picked up by Sun. She said the last time she ate was around 10:00 AM this morning. She said she has not had any concerns or issues since her last treatment. Psychotherapy Information Psychotherapy History Currently in therapy: Yes Name of therapist: Yesenia Cooley, Examination Category Sub-Category Detail Notes Category Not es General Examination Psych: alert and or iented x 3, cognitive function intact, cooperative with exam, maintains good eye contact, with good judgement and insight, normal affect / mood, with no auditory or visual hallucinations, speech is clear and coherent, thought process is logical and goal directed without suidical ideation or delusions Mental Status Examination: Patient reports an anxiety severity of 7/10. pt reports her depression is a 6/10. Denies suicidal ideation, self-harm, and homicidal ideation. Denies hallucinations, delusions, and paranoia. Sleeps approximately six hours per night. Therapy: Currently attending therapy sessions with Yesenia Cooley. Vital Signs: see note. Diagnostic Test Results and Labs: PHQ-9: on 09/28/24: 8
--- OUTSIDE RECORDS SUMMARY | 2024-10-08 05:33 | XMS_ITS | Encounter Summary ---
Author Organization [facility] Care Team Providers Care Gamemaster Name Role Phone Paddy Riley MD, Fabrizio Unavailable [phone]- [phone] Chris Mahmood DO Primary Care Provider + No, Physician Primary Care Provider [phone] Shruthi Modi MD Primary Care Provider Dmitry Laguna MD Unavailable [phone] Bita Irby MD Unavailable Encounter Details Date Type Department Care Team (Latest Contact Info) Description 11/25/2016 Orders Only [facility]IN[facility] ProviderRay MD [address] [place] [address] Social History Tobacco Use Types Packs/Day Years Used Date Smoking Tobacco: Never Assessed Comments Unknown Sex and Gender Information Value Date Recorded Sex Assigned at Not on file Legal Sex Female 6:55 AM [employer] Gender Identity Female 07/23/2020 8:34 PM [employer] Sexual Orientation Straight 07/23/2020 8: 34 PM [employer] documented as of this encounter Plan of [...] documented as of this encounter Care Teams Gamemaster Relationship Specialty Start Date End Date Chris Mahmood DO [address] [place] [address] PCP - General Family Medicine 07/05/21 10/04/21 No, Physician PCP - General 10/15/21 10/23/21 Shruthi Modi MD [address] [place] [address] PCP - General Family Practice 10/24/21 Fabrizio Thomason Jr., MD Medical Oncologist/Hematologis t Medical Oncology 03/02/21 10/04/24 Dmitry Laguna MD [address] [place] [address] Referring Physician Endocrinology Diabetes & Metabolism 05/21/23 10/04/24 Bita Irby MD [address] [facility] [address] Consulting Physician Endocrinology Diabetes & Metabolism 10/05/24 documented as of this encounter
--- OUTSIDE RECORDS SUMMARY | 2024-10-08 05:33 | XMS_ITS | Data Portability ---
Author Organization MD Laena bui, Main Office Address [address] [facility] [address] [place] [address] Care Team Providers Care Shop Girl Name Role Phone JUANA MARINA Primary Care Provider [phone] LAURIE ASTUDILLO Referring Provider [phone] Assessment No assessment recorded. Plan of Treatment Reminders Order Date Submit Date Provider Last Modified By Organization Details Last Modified Time Details Appointments None recorded. Lab None recorded. Referral None recorded. Procedures None recorded. Surgeries None recorded. Imaging None recorded. Medication Orders Percocet 10 mg-325 mg tablet 2018 019 [email or web address] [facility] #42624, [address] , [place], [place], [id number], 9 09:49:37 Percocet 10 mg-325 mg tablet 2018 019 [email or web address] [facility] #45679, [address] , [place], [place], [id number], 9 18:10:18 Ajovy Syringe 225 mg/1.5 mL subcutaneo us 2018 019 [email or web address] [facility] #41450, [address] , [place], [place], [id number], 9 18:10:17 Percocet 10 mg-325 mg tablet 2018 019 [email or web address] [facility] #23283, [address], [place], [place], [id number], 9 13:48:52 Ajovy Syringe 225 mg/1.5 mL subcutaneo 2018 019 [email or web address] [facility] #02632, [address], [place], [place], [id number], 9 13:48:52 Percocet 10 mg-325 mg tablet 2017 018 [email or web address] [facility] #37003, [address], [place], [place], [id number], 8 16:39:11 Fioricet 50 mg-300 mg-40 mg capsule 2017 018 [facility], [address], [place], [place], [id number], 8 16:58:20 topiramate 50 mg tablet 2017 018 [facility], [address], [place], [place], [id number], 8 16:59:55 Ajovy Syringe 225 mg[facility]1.5 [facility] [address] [facility], [address], [place], [place], [id number], 8 17:06:13 Patient TargetsNo targets recorded. Patient InstructionsNo instructions recorded. Reason for Referral None Reported. Problems Name Problem SNOMED Code Status Onset Date Resolution Date Notes Provider Name and Address Organization Details Recorded Time Rheumatoid arthritis 49364749 Active 2017 MD [facility] 8 16:41:28 Tobacco dependence syndrome 33909936 Active 2017 Shashank Alyssa null, MD - [facility] 8 16:45:54 Chronic pain syndrome 479604771 Active 2017 Shashank Shah null, MD - [facility] 8 17:35:16 Long-term current use of opiate analgesic drug 9924319294062 08 Active 2017 Shashank Shah null, MD - [facility] 8 17:35:41 Lumbar spondylosis 556783046 Active 2017 Shashank Shah null, MD - [facility] 8 17:36:26 Degeneratio n of lumbar interverteb ral disc 14840964 Active 2017 Shashank Shah null, MD - [facility] 8 17:36:37 Degeneratio n of cervical interverteb ral disc 21230411 Active 2017 Shashank Shah null, MD - [facility] 8 17:36:47 Bilateral sacroiliiti s 6603785213399 9102 Active 2017 Shashank Shah null, MD - [facility] 8 20:13:03 Chronic low back pain 902270342 Active 2017 Shashank Shah null, MD - [facility] 8 20:13:11 Migraine 27030562 Active 2017 Shashank Shah null, MD - [facility] 8 16:56:47 Cervical spondylosis 413144701 Active 2017 Shashank Shah null, MD - [facility] 8 08:40:40 Chronic neck pain 0138196339693 Active 2017 Shashank Shah null, MD - [facility] 8 08:40:54 Thoracic spondylosis 264599126 Active 2017 Shashank Shah null, MD - [facility] 8 08:41:05 Pain in thoracic spine 844403241 Active 2017 Shashank Shah null, MD - [facility] 8 08:41:13 Sacroiliac joint pain 028376222 Active 2018 Vincent Eubanks null, MD - [...] Name and Address Organization Details Recorded Time 98900 Substance with sulfonami de structure and antibacte rial mechanism of action (substanc e) medicatio n anaphylax is severe Not available 04/24/2018 07884 8003 SNOMED Jennifer carrion MD - [facility] 8 15:20:30 65060 Imitrex medicatio n Not available Not available Not available 04/24/2018 13819 3 RxNorm Jennifer carrion MD - [facility] 8 15:21:19 50868 Reglan medicatio n Not available Not available Not available 04/24/2018 9230 RxNorm Jennifer carrion MD - [facility] 8 15:26:12 59019 Inapsine medicatio n Not available Not available Not available 04/24/201835338 3 RxNorm Jennifer rowe MD Leana carrion [facility] 8 15:26:26 36750 Compazine medicatio n Not available Not available Not available 05/29/201880178 6 RxNorm Ivan Weaver MD Leana carrion [facility] 8 14:02:27 42919 Haldol medicatio n Not available Not available Not available 05/29/2018 03387 9 RxNorm Ivan Weaver MD Leana carrion [employer] [facility] 8 14:02:50 Medications Name Sig [...] 151 mm[Hg] 93 mm[Hg] Ivan Weaver MD [facility] 8 15:39:23 Date Recorded Respiratory rate Body temperature Heart rate Heart rate Systolic blood pressure Diastolic blood pressure Provider Name and Address Organization Details Last Updated DateTime 9 16 /min 98.5 [degF] 60 /min 60 /min 152 mm[Hg] 97 mm[Hg] Ivan Weaver MD [facility] 9 12:38:05 Date Recorded Body weight Heart rate Systolic blood pressure Diastolic blood pressure Provider Name and Address Organization Details Last Updated DateTime 02/04/2019 55434.29 g 71 /min 142 mm[Hg] 88 mm[Hg] Jennifer Dueñas [facility] 02/04/2019 16:57:12 Date Recorded Respiratory rate Body temperature Heart rate Heart rate Systolic blood pressure Diastolic blood pressure Provider Name and Address Organization Details Last Updated DateTime 9 16 /min 98.4 [degF] 71 /min 71 /min 144 mm[Hg] 87 mm[Hg] Ivan Weaver MD [facility] 9 10:48:16 Date Recorded Respiratory rate Body weight Body height Body mass index (BMI) Heart rate Systolic blood pressure Diastolic blood pressure Provider Name and Address Organization Details Last Updated DateTime 9 14 /min 25999.6 5 g 167.64 cm 26 kg/m2 59 /min 153 mm[Hg] 94 mm[Hg] Sergo Dueñas [facility] 9 09:30:08 Social History Question Answer Notes LastModified by Organizat ion Details LastModified Time Tobacco Smoking Status Current Every Day Smoker MD Leana Mosley [email or web address] 04/24/2018 15:43:01 What Is Your Level Of Alcohol Consumption? Occasional [email or web address] Information not available 04/24/2018 Auto Related Injury? No [email or web address] Information not available 04/24/2018 Are You Currently Employed? Yes [email or web address] Information not available 04/24/2018 Education 2 Year College [email or web address] Informa tion not available 02/04/2019 Live Alone Or With Others? With Others [email or web address] Information not available 04/24/2018 Pain Level. 5 [email or web address] Informatio n not available 02/04/2019 What Was The Date Of Your Most Recent Tobacco Screening? 04/24/2018 Information not available 03/11/2019 How Much Tobacco Do You Smoke? 1 PPD [email or web address] Information not available 02/04/2019 General Stress Level Low [email or web address] Information not available 04/24/2018 How Many Years Have You Smoked Tobacco? 4 [email or web address] Information not available 02/04/2019 Work Related Injury? No Information not available 04/24/2018 Sex: Unknown Functional Status None recorded. Mental Status None recorded. Family History Relationship Description Onset Age of this Age Resolved Age Notes LastModified by Organization Details LastModified Time Father ILLNES S (HYPER TENSIO N) CAUSE OF (KIDNE Y CANCER ) [email or web address] Not available 05/03/2019 14:46:44 Father Hypertensive disorder [email or web address] Not available 16:57:46 Father Kidney disease [email or web address] Not available 16:57:46 Mother Alive [email or web address] Not availab le 05/03/2019 14:46:44 Mother Diabetes mellitus [email or web address] Not available 16:57:46 Mother Heart disease [email or web address] Not available 16:57:46 Mother Hypertensive disorder [email or web address] Not available 16:57:46 Sister Hypertensive disorder [email or web address] Not available 16:57:46 Notes:ILLNESS (DIABETES, HYP ERTENSION, AND STROKE. Medical History Condition Response Thyroid Disease N Head Trauma/Injury N Depression Y Cardiac Hx N Anxiety Disorder Y Respiratory Hx N Arthritis N Cancer N Back Injury N Liver Disease N Fibromyalgia N Headaches N Kidney Disease N Diabetes N Blood Disorder N AIDS/HIV N Heart Attack N Substance Abuse N Seizure or Epilespsy N Hypertension Y Osteoporosis N Gynecological HistoryNo gynecological history recorded. Obstetrics History GPAL:G 0 P 0 0 0 0 Past Encounters Encounter ID Performer Location Encounter Start Date Encounter Closed Date Diagnosis/Indication Diagnosis SNOMED-CT Code Diagnosis ICD10 Code Diagnosis Note [id number] Shashank FERNANDEZ [address] [place] [address] 04/24/2018 14:46:21 04/24/2018 17:44:43 Chronic pain syndrome 652492286 G89.4 Tobacco de pendence syndrome 41399820 F17.200 Rheumatoid arthritis 698 57641 M06.9 Long-term current use of opiate analgesic drug 5104897192 51654 Z79.891 Lumbar spondylosis 05601 0009 M47.816 Degenerati on of lumbar intervertebral disc 58186937 M51.36 Degenerati on of cervical intervertebral disc 23017044 M50.30 Bilateral sacroiliitis 4995398149 4622747 M46.1 Chronic low back pain 27 6702679 M54.5 [id number] Shashank FERNANDEZ [address] [place] [address] 05/15/2018 12:31:37 05/15/2018 13:59:33 Chronic low back pain 295976528 M54.5 Chronic pain syndrome 37 1612653 G89.4 Lumbar spondylosis 53922 0009 M47.816 [id number] Shashank FERNANDEZ [address] [place] [address] 05/29/2018 13:34:31 05/29/2018 14:56:16 Chronic low back pain 829040117 M54.5 Lumbar spondylosis 40119 0009 M47.816 [id number] Vincent FERNANDEZ [address] ([facility])[address] [place] [address] 06/02/2018 14:08:33 06/02/2018 15:08:42 Chronic low back pain 087205265 M54.5 Bilateral sacroiliitis 2672985120 8494553 M46.1 Degenerati on of cervical intervertebral disc 16404980 M50.30 Degenerati on of lumbar intervertebral disc 54740876 M51.36 Lumbar spondylosis 16578 0009 M47.816 Long-term current use of opiate analgesic drug 9404900475 50562 Z79.891 Chronic pain syndrome 37 0688591 G89.4 Tobacco de pendence syndrome 42354274 F17.200 Rheumatoid arthritis 698 20254 M06.9 Cervical spondylosis 387 729543 M47.812 Thoracic spondylosis 387 087689 M47.814 Chronic neck pain 589516 1588 107 M54.2 [id number] Shashank Shah [place] [address] [place] [address] 07/07/2018 15:24:08 07/07/2018 17:12:46 Degeneration of cervical intervertebral disc 88553021 M50.30 Chronic pain syndrome 37 7491909 G89.4 Chronic low back pain 27 3546338 M54.5 Bilateral sacroiliitis 3974593458 1315388 M46.1 Degenerati on of lumbar intervertebral disc 85640725 M51.36 Lumbar spondylosis 55329 0009 M47.816 Long-term current use of opiate analgesic drug 1074473095 30240 Z79.891 Tobacco de pendence syndrome 80833398 F17.200 Rheumatoid arthritis 698 00153 M06.9 Migraine 34661059 G43.90 9 Pain in th oracic spine 639746803 M54.6 Thoracic spondylosis 387 272764 M47.814 Chronic neck pain 521845 6281 107 M54.2 Cervical spondylosis 387 562617 M47.812 [id number] Shashank Shah [place] [address] [place] [address] 09/15/2018 11:55:16 09/16/2018 09:52:34 Cervical spondylosis 672648546 M47.812 Chronic neck pain 082737 0855 107 M54.2 Thoracic spondylosis 387 514009 M47.814 Pain in th oracic spine 441746368 M54.6 Migraine 55702990 G43.01 9 Chronic pain syndrome 37 4510032 G89.4 [id number] [facility]ANK [facility] [address] [place] [address] 02/04/2019 16:37:41 02/04/2019 18:15:40 Degeneration of cervical intervertebral disc 60549028 M50.30 Chronic pain syndrome 37 1289572 G89.4 Chronic low back pain 27 0182962 M54.5 Bilateral sacroiliitis 9282428958 2138993 M46.1 Degenerati on of lumbar intervertebral disc 94693911 M51.36 Lumbar spondylosis 79838 0009 M47.816 Long-term current use of opiate analgesic drug 5216674464 02565 Z79.891 Tobacco de pendence syndrome 37169350 F17.200 Rheumatoid arthritis 698 97302 M06.9 Migraine 69565669 G43.11 9 Pain in th oracic spine 094523183 M54.6 Thoracic spondylosis 387 159389 M47.814 Chronic neck pain 240060 2004 107 M54.2 Cervical spondylosis 387 830167 M47.812 [id number] [facility]ANK [facility] [address] [place] [address] 02/09/2019 10:14:33 02/09/2019 12:38:35 Pain in thoracic spine 230214867 M54.6 Thoracic spondylosis 387 675757 M47.814 [id number] Vincent Eubanks [facility] [address] [place] [address] 04/26/2019 09:05:02 04/26/2019 09:57:15 Degeneration of cervical intervertebral disc 71941099 M50.30 Chronic pain syndrome 37 6976172 G89.4 Chronic low back pain 27 8786857 M54.5 Bilateral sacroiliitis 9300189367 5299292 M46.1 Degenerati on of lumbar intervertebral disc 78180936 M51.36 Lumbar spondylosis 91082 0009 M47.816 Long-term current use of opiate analgesic drug 2312469585 40033 Z79.891 Tobacco de pendence syndrome 21578913 F17.200 Rheumatoid arthritis 698 12444 M06.9 Migraine 93803091 G43.11 9 Pain in th oracic spine 335705626 M54.6 Thoracic spondylosis 387 221477 M47.814 Chronic neck pain 851569 0941 107 M54.2 Cervical spondylosis 387 886310 M47.812 Sacroiliac joint pain 20 8164691 M53.3 Health Concerns Section Related Observation LastModified by Organization Detai ls LastModified Time None Recorded Concern Status LastModified by Organization Details LastModified Time None Recorded Advance Directives Directive None Recorded Payers Encounter Date Sequence Insurance Name Policy Number Policy Avila Covered Member ID Avila Member ID Guarantor Name 07/07/2018 1 [employer]ET[employer] (PPO) [id number] Darryn Barroso [id number] Kerry Barroso 07/07/2018 2 WPS - FOR LIFE (SECONDARY TO MEDICARE) Darryn Barroso [id number] Kerry Barroso 09/15/2018 1 [employer]ET[employer] (PPO) [id number] Darryn Barroso [id number] Kerry Barroso 09/15/2018 2 WPS - FOR LIFE (SECONDARY TO MEDICARE) Darryn Barroso [id number] Kerry Barroso 02/04/2019 2 WPS - FOR LIFE (SECONDARY TO MEDICARE) Darryn Barroso [id number] Kerry Barroso 02/04/2019 1 [employer]ETNA (PPO) [id number] Darryn Barroso [id number] Kerry Barroso 02/09/2019 2 WPS - FOR LIFE (SECONDARY TO MEDICARE) Darryn Barroso [id number] Kerry Barroso 02/09/2019 1 [employer]ET[employer] (PPO) [id number] Darryn Barroso [id number] Kerry Barroso 04/26/2019 1 [employer]ETNA (PPO) [id number] Darryn Barroso [id number] Kerry Barroso 04/26/2019 2 [place]AST - [place] PRIOR TO 2024 - [employer] () Kerry Valdezer [id number] Kerry Dharmesh Notes Date Note Type Note [...] this in August when she returns to [place]. 05/29/18 - Left Lumbar RFA - 80% [...] using opioids with benzodiazepines, alcohol, and other SITE RELIABILITY ENGINEER depressants was discussed. I advised the patient not to use alcohol and not to drive or use equipment if there is any drowsiness. We also have discussed the [facility] Opiate Contract at length. All questions were answered, the patient was agreeable and signed. [place] Opioid Start Talking form has been signed. Patient has received information about proper disposal of opiate medications and if applicable, a table summarizing the short and manager 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 effects of exposure to opiates. Patient is [...] [phone] Shashank carrion MD - [email or web address] 07/08/2018 10:54:25 09/15/19 19 text/htm l Patient [...] using opioids with benzodiazepines, alcohol, and other SITE RELIABILITY ENGINEER depressants was discussed. I advised the patient not to use alcohol and not to drive or use equipment if there is any drowsiness. We also have discussed the [facility] Opiate Contract at length. All questions were answered, the patient was agreeable and signed. [place] Opioid Start Talking form has been signed. Patient has received information about proper disposal of opiate medications and if applicable, a table summarizing the short and longterm effects of exposure to opiates. Patient was [...] report in chart. Shashank carrion MD - [email or web address] 09/15/2018 17:24:19 02/05/20 19 text/htm alondra Payne [...] She does follow up closely with a financial underwriter who has been adjusting her medications. Patient [...] using opioids with benzodiazepines, alcohol, and other SITE RELIABILITY ENGINEER depressants has been discussed. I advised the [...] the proper disposal of opiates from the [facility] Department of Environmental Quality. We have discussed the [facility] Opiate Contract at length and an unsigned copy of this contract was given to the patient. All questions were answered, the patient was agreeable to the conditions and signed. [facility] Opioid Start Talking form has also been discussed and signed by both parties. SHASHANK carrion MD - [facility] 02/04/2019 18:33:55 04/26/20 19 text/htm [...] using opioids with benzodiazepines, alcohol, and other SITE RELIABILITY ENGINEER depressants has been discussed. I advised the [...] the Opioid Patient Fact Sheet from the [facility]. Patient has also received information about the proper disposal of opiates from the [facility] Department of Environmental Quality. We have discussed the [facility] Opiate Contract at length and an unsigned copy of this contract was given to the patient. All questions were answered, the patient was agreeable to the conditions and signed. [place] s Opioid Start Talking form has also been discussed and signed by both parties. Vincent carrion MD - [facility] 04/26/2019 14:45:16 OBGyn Episode No OBEpisode recorded.
--- OUTSIDE RECORDS SUMMARY | 2024-10-08 05:34 | XMS_ITS | Clinical Summary ---
Author Organization [facility] Address [address] [place] [address] Phone Care Team Providers Care Hydrogen Power Plant Manager Name Role Phone Shruthi Modi MD Primary [...] Completed 08/22/2020, 05/19, 05/17/2020 Insurance AETNA PPO [facility] Care Teams Hydrogen Power Plant Manager Relationship Specialty Start Date End Date Shruthi Modi MD [address] [place] [phone] PCP - General Family Practice 04/11/22
--- OUTSIDE RECORDS SUMMARY | 2024-10-08 05:34 | XMS_ITS | Encounter Summary ---
Author Organization [facility] Care Team Providers Care It Associate Name Role Phone Paddy Riley MD, Fabrizio Unavailable [phone]- [phone] Chris Mahmood DO Primary Care Provider + No, Physician Primary Care Provider [phone] Shruthi Modi MD Primary Care Provider Dmitry Laguna MD Unavailable [phone] Bita Irby MD Unavailable [phone] Encounter Details Date Type Department Care Team (Latest Contact Info) Description 10/17/2017 Orders Only [facility] CLINCONV ProviderRay MD [address] [place] [address] Social History Tobacco Use Types Packs/Day Years Used Date Smoking Tobacco: Never Assessed Comments Unknown Sex and Gender Information Value Date Recorded Sex Assigned at Not on file Legal Sex Female 6:55 AM RETAIL SERVICE SPECIALIST Gender Identity Female 07/23/2020 8:34 PM RETAIL SERVICE SPECIALIST Sexual Orientation Straight 07/23/2020 8: 34 PM RETAIL SERVICE SPECIALIST documented as of this encounter Plan of [...] as of this encounter Care Teams It Associate Relationship Specialty Start Date End Date Chris Mahmood DO [address] [place] [address] PCP - General Family Medicine 07/05/21 10/04/21 No, Physician PCP - General 10/15/21 10/23/21 Shruthi Modi MD [address] [facility] [address] PCP - General Family Practice 10/24/21 Fabrizio Thomason Jr., MD Medical Oncologist/Hematologis t Medical Oncology 03/02/21 10/04/24 Dmitry Laguna MD [address] [facility] [address] Referring Physician Endocrinology Diabetes & Metabolism 05/21/23 10/04/24 Bita Irby MD [address] [facility] [address]CRINOLOGY[address] [address] Consulting Physician Endocrinology Diabetes & Metabolism 10/05/24 documented as of this encounter
--- OUTSIDE RECORDS SUMMARY | 2024-10-08 05:34 | XMS_ITS | Encounter Summary ---
Author Organization [facility] Care Team Providers Care Pilot Safety Inspector Name Role Phone Paddy Riley MD, Fabrizio Unavailable [phone]- [phone] Chris Mahmood DO Primary Care Provider + No, Physician Primary Care Provider [phone] Shruthi Modi MD Primary Care Provider Dmitry Laguna MD Unavailable [phone] Bita Irby MD Unavailable [phone] Encounter Details Date Type Department Care Team (Latest Contact Info) Description 12/09/2016 Orders Only [facility] CLINCONV ProviderRay MD [address] [place] [address] Social History Tobacco Use Types Packs/Day Years Used Date Smoking Tobacco: Never Assessed Comments Unknown Sex and Gender Information Value Date Recorded Sex Assigned at Not on file Legal Sex Female 6:55 AM SPEARER Gender Identity Female 07/23/2020 8:34 PM SPEARER Sexual Orientation Straight 07/23/2020 8: 34 PM SPEARER documented as of this encounter Plan of [...] documented as of this encounter Care Teams Pilot Safety Inspector Relationship Specialty Start Date End Date Chris Mahmood DO [address] [place] [address] PCP - General Family Medicine 07/05/21 10/04/21 No, Physician PCP - General 10/15/21 10/23/21 Shruthi Modi MD [address] [place] [address] PCP - General Family Practice 10/24/21 Fabrizio Thomason Jr., MD Medical Oncologist/Hematologis t Medical Oncology 03/02/21 10/04/24 Dmitry Laguna MD [address] [place] [address] Referring Physician Endocrinology Diabetes & Metabolism 05/21/23 10/04/24 Bita Irby MD [address] [facility] ENDOCRINOLOGY[address] [place] [address] [address] Consulting Physician Endocrinology Diabetes & Metabolism 10/05/24 documented as of this encounter
--- OUTSIDE RECORDS SUMMARY | 2024-10-08 05:34 | XMS_ITS | Clinical Summary ---
Author Organization [facility] [employer] Address [address] [place] [address] Care Team Providers Care Bowling Ball Grader Name Role Phone Charlene Murillo MD Unavailable [phone] Lenin Frances MD Unavailable [phone] Sylvester Brown MD Unavailable [phone] Cornell Bingham MD Unavailable [phone] Pcp, [address] Primary Care Provide r Unavailable Source Comments [facility],non-owned Affiliates and Associated Physician Practices is amultiple site organization consisting of ambulatory clinics and hospital sitesin [place], [place], [place] and [place]. This disclosure is being madepursuant to the Care Everywhere program and may not contain all information available regarding this patient. Last updated 18.[facility] Allergies Active Allergy Reactions Criticality Noted [...] Active vitamin D, ergocalciferol, (DRISDOL) 1.25 MG (47655 UT) capsule Take 50,000 Units by mouth [...] sprayIndications: Other migraine without status migrainosus, intractable [place] 1 spray into each nostril 2 times [...] Comments Blood Pressure 120/74 06/27/2020 11:23 AM 5TH GRADE TEACHER Pulse 60 06/27/2020 11:23 AM 5TH GRADE TEACHER Temperature 35.7 C (96.3 F) 06/27/2020 11:23 AM 5TH GRADE TEACHER Respiratory Rate 14 06/27/2020 11:23 AM 5TH GRADE TEACHER Oxygen Saturation 100% 06/27/2020 11:23 AM 5TH GRADE TEACHER Inhaled Oxygen Concentration - - Weight 70.8 kg (156 lb) 06/27/2020 11:23 AM 5TH GRADE TEACHER Height 167.6 cm (5' 6 ) 06/27/2020 11:23 AM 5TH GRADE TEACHER Body Mass Index 25.18 06/27/2020 11:23 AM 5TH GRADE TEACHER Plan of Treatment Health Maintenance Due Date [...] exam COMPREHENSIVE METABOLIC PANEL 10/08/2018 1:18 PM 5TH GRADE TEACHER from Last 3 Months or Most [...] of containers..01 ThinPrep Vial Resulting Agency Comment [address] [phone] Natali SANCHEZ LAB - PATHOLOGY/CY TOLOGY ORDERABLES [facility] INSURANCE BILL [address] [place] [address] * COMPREHENSIVE METABOLIC PANEL (10/08/2018 1:18 PM 5TH GRADE TEACHER) Glucose 98 74 - 106 mg/dL [facility] [...] [facility] INSURANCE BILL Comment:FASTING 10/08/2018 1:18 PM 5TH GRADE TEACHER 10/08/2018 Narrative Resulting Agency Comment [facility] [address] [place] [phone] Williams Avalos MD LAB - CHEMISTRY KAREN HOLLINS [facility] Organization Address City/State/ZIP Co de Phone Number [facility] INSURANCE BILL [address] [place] [address] from Last 3 Months or Most Recently Relevant to Health Maintenance Advance Directives Documents on File Type Date Recorded Patient Real Estate Subagent Expl anation Adv Directive/Living Will/POA 12/10/2016 * Full Code (Latest Code Status on File) Date Activated Date Inactivated Comments 12/14/2016 12:49 AM 12/16/2016 12:21 PM * Full Code Date Activated Date Inactivated Comments 12/10/2016 2:26 PM 12/11/2016 5:18 PM * Full Code Date Activated Date Inactivated Comments 12/10/2016 1:49 PM 12/10/2016 2:26 PM Care Teams Bowling Ball Grader Relationship Specialty Start Date End Date Pcp, [facility] 3rd PCP - General 09/14/24 Charlene Murillo MD [address] [address] [address] [place] [id number] Consulting Physician Pulmonary Disease 04/09/18 Lenin Frances MD [address] [facility] [address] [place] [address] Pain Management Anesthesiology 10/08/18 Sylvester Brown MD [address] [place] [address] Psychiatry 12/23/18 Cornell Bingham MD [address] [place] [address] Cardiovascular Disease 06/15/19
--- OUTSIDE RECORDS SUMMARY | 2024-10-08 05:34 | XMS_ITS | Encounter Summary ---
Author Organization [facility] Facility Care Team Providers Care Psychologist Chief Name Role Phone Paddy Riley MD, Fabrizio Unavailable [phone] Chris Mahmood DO Primary Care Provider + No, Physician Primary Care Provider Shruthi Modi MD Primary Care Provider Dmitry Laguna MD Unavailable [phone] Bita Irby MD Unavailable [phone] Encounter Details Date Type Department Care Team (Latest Contact Info) Description 11/26/2016 Orders Only [facility] CLINCONV ProviderRay MD [address] [place] [address] Social History Tobacco Use Types Packs/Day Years Used Date Smoking Tobacco: Never Assessed Comments Unknown Sex and Gender Information Value Date Recorded Sex Assigned at Not on file Legal Sex Female 6:55 AM MARKING ROOM SUPERVISOR Gender Identity Female 07/23/2020 8:34 PM MARKING ROOM SUPERVISOR Sexual Orientation Straight 07/23/2020 8: 34 PM MARKING ROOM SUPERVISOR documented as of this encounter Plan of [...] documented as of this encounter Care Teams Psychologist Chief Relationship Specialty Start Date End Date Chris Mahmood DO [address] [place] [address] PCP - General Family Medicine 07/05/21 10/04/21 No, Physician PCP - General 10/15/21 10/23/21 Shruthi Modi MD [address] [facility] [place] [address] PCP - General Family Practice 10/24/21 Fabrizio Thomason Jr., MD Medical Oncologist/Hematologis t Medical Oncology 03/02/21 10/04/24 Dmitry Laguna MD [address] [facility] [place] [address] Referring Physician Endocrinology Diabetes & Metabolism 05/21/23 10/04/24 Bita Irby MD [address] [facility] ENDOCRINOLOGY[address] [address] Consulting Physician Endocrinology Diabetes & Metabolism 10/05/24 documented as of this encounter
--- OUTSIDE RECORDS SUMMARY | 2024-10-08 05:34 | XMS_ITS | Encounter Summary ---
Author Organization [facility] Facility Care Team Providers Care Release And Technical Records Clerk Name Role Phone Paddy Riley MD, Fabrizio Unavailable [phone] Chris Mahmood DO Primary Care Provider + No, Physician Primary Care Provider [phone] Shruthi Modi MD Primary Care Provider Dmitry Laguna MD Unavailable [phone] Bita Irby MD Unavailable [phone] Encounter Details Date Type Department Care Team (Latest Contact Info) Description 01/01/2017 Orders Only [facility] CLINCONV ProviderRay MD [address] [place] [address] Social History Tobacco Use Types Packs/Day Years Used Date Smoking Tobacco: Never Assessed Comments Unknown Sex and Gender Information Value Date Recorded Sex Assigned at Not on file Legal Sex Female 6:55 AM SALES ESTIMATOR Gender Identity Female 07/23/2020 8:34 PM SALES ESTIMATOR Sexual Orientation Straight 07/23/2020 8: 34 PM SALES ESTIMATOR documented as of this encounter Plan of [...] provider. us Historical Provider [facility] Final Result documented in this encounter Visit [...] documented as of this encounter Care Teams Release And Technical Records Clerk Relationship Specialty Start Date End Date Chris Mahmood DO [address] [place] [address] PCP - General Family Medicine 07/05/21 10/04/21 No, Physician PCP - General 10/15/21 10/23/21 Shruthi Modi MD [address] [facility] [place] [place] [address] PCP - General Family Practice 10/24/21 Fabrizio Thomason Jr., MD Medical Oncologist/Hematologis t Medical Oncology 03/02/21 10/04/24 Dmitry Laguna MD [address] [place] [address] Referring Physician Endocrinology Diabetes & Metabolism 05/21/23 10/04/24 Bita Irby MD [address] [facility] ENDOCRINOLOGY, [address] [address] Consulting Physician Endocrinology Diabetes & Metabolism 10/05/24 documented as of this encounter
--- OUTSIDE RECORDS SUMMARY | 2024-10-08 05:34 | XMS_ITS ---
Author Organization [facility] Address [address] [place] [address] Care Team Providers Care Ic Engineer Name Role Phone Ly FIGUEROA, Shruthi Primary Care Provider Unavailab nitin ManasNicholas Unavailable [phone] REASON FOR VISIT Spravato Follow Up, Follow [...] see sign for 14 days *Reorder from [facility] for eRx and Interaction Alerts* Active [...] Female Encounters Encounter Location Date Provider Diagnosis [facility] [address] [address] 09/28/2024 Nicholas Malagon Primary insomnia F51 .01 [...] see sign for 14 days *Reorder from [facility] for eRx and Interaction Alerts* Atomoxetine HCl [...] 6 Weeks, Reason: f/u depression, adhd Provider Name:Laith Haji, 10/15/2024 01:00:00 PM, [address], [place], [address], Provider Name:Laith Haji, 10/29/2024 01:00:00 PM, [address], [place], [address], Provider Name:Laith Haji, 11/05/2024 01:15:00 PM, [address] [address], [place], [address], Provider Name:Nicholas R Hardik dominguez, 11/12/2024 03:30:00 PM, [address], [address] [address], [place], [address], Progress Notes * TRISTEN BOYDEDOB:1970 (54 yo F)Acc No.[id number]:09/28/2024 Patient: Pamela AMENACOLIN Provider: EITAN PRESTON :1970 A ge:54 Y S ex:Female Date:09/28/2024 Address:[address] [place], [place] [address] Pcp:Shruthi Modi MD Check In:09:09 AM CSTCheck O ut:09:28 AM ELECTRICIAN'S HELPER Subjective: * Chief Complaints: * 1 . [...] the ingredients No history. Anxiety p ersistent. Depression O nset: years ago, Associated Symptoms: feels hopeless, worthless, crying spells, feels like a burden i mproving with spravato. Psychotherapy B hong Cooley c ompleted IOP. P ast Medication history: Zoloft, Prozac, paxil- made yawn, bupropion, auvelity, abilify. D epression screening: PHQ-9 L ittle interest or pleasure in doing things?Several days F eeling down, depressed, or hopeless S everal days T rouble falling or staying asleep, or sleeping too much M ore than half the days F eeling tired or having little energy N early every day P oor appetite or overeating N ot at all F eeling bad about yourself or that you are a failure, or have let yourself or your family down S everal days M oving or speaking so slowly that other people could have noticed; or the opposite, being so fidgety or restless that you have been moving around a lot more than usual N ot at all T houghts that you would be better off or of hurting yourself in some way N ot at all F unctional Status: The patient was seen today for Tele visit. [place] x_patient is seen at HOME Pt is seen at other than Home [employer] [facility] the session was conducted via a HIPAA-compliance audio/visual platform. * Medical History: * Medications: T aking Spravato (84 MG Dose) 28 MG/DEVICE Solution [...] day , Notes to Pharmacist: *Reorder from [facility] for eRx and Interaction Alerts*, Taking ARIPiprazole [...] Spravato (84 MG Dose) Solution Therapy Pack, MG/DEVICE, 3 sprays in each nostril, Nasally, [...] Refills 0, Notes to Pharmacist: *Reorder from [facility] for eRx and Interaction Alerts*; S tart Atomoxetine HCl Capsule, 40 MG, 1 capsule in the morning, Orally, Once a day, 14 days, 14 Capsule, Refills 0; S tart Atomoxetine HCl Capsule, 80 MG, 1 capsule in the morning, Orally, Once a day, 30 days, 30, Refills 1. * Follow Up: 6 Weeks (Reason: f/u depression, adhd) * Billing Information: * Visit Code: 63921 OFFICE OUTPATIENT VISIT 25 MINUTES DETAILED HISTORY AND EXAM/MODERATE MEDICAL DECISION MAKING. Modifiers: 95 * Procedure Codes: * Electronic signature of EITAN Moore on 10/08/2024 at 05:33 AM ELECTRICIAN'S HELPER Sign off status: Pending * Provider: EITAN PRESTON Date: 0 09/28/2024 Generated for Jessica weiss/Bairon/Kaleb on: 0 10/08/2024 05:33 AM ELECTRICIAN'S HELPER History and Physical Notes * HPI (History of Present Illness) Category Sub-Category Detail Notes Category Not es History of Presenting Problem Anxiety persistent Depression Onset: years ago, As sociated Symptoms: feels hopeless, worthless, crying spells, feels like a burden improving with spravato Psychotherapy Moira powell [facility] Depression screening PHQ-9 Little inte rest [...] all Thoughts that you would be b shaniqua off or of hurting yourself in some [...]
--- OUTSIDE RECORDS SUMMARY | 2024-10-08 05:34 | XMS_ITS | Referral Summary ---
Author Organization [facility] Address [address] [place] [address] Care Team Providers Care Door Clamp Operator Name Role Phone Charlene Murillo MD Unavailable [phone] Lenin Frances MD Unavailable [phone] Sylvester Brown MD Unavailable [phone] Cornell Bingham MD Unavailable [phone] Pcp, [address] Primary Care Provide r Unavailable Source Comments [facility],non-owned Affiliates and Associated Physician Practices is amultiple site organization consisting of ambulatory clinics and hospital sitesin [place], [place]. This disclosure is being madepursuant to the Care Everywhere program and may not contain all information available regarding this patient. Last updated 18.[facility] Allergies Active Allergy Reactions Criticality Noted Date [...] Active vitamin D, ergocalciferol, (DRISDOL) 1.25 MG (80858 UT) capsule Take 50,000 Units by mouth [...] sprayIndications: Other migraine without status migrainosus, intractable [place] 1 spray into each nostril 2 times [...] Comments Blood Pressure 120/74 06/27/2020 11:23 AM SUPERVISOR UNLOADING Pulse 60 06/27/2020 11:23 AM SUPERVISOR UNLOADING Temperature 35.7 C (96.3 F) 06/27/2020 11:23 AM SUPERVISOR UNLOADING Respiratory Rate 14 06/27/2020 11:23 AM SUPERVISOR UNLOADING Oxygen Saturation 100% 06/27/2020 11:23 AM SUPERVISOR UNLOADING Inhaled Oxygen Concentration - - Weight 70.8 kg (156 lb) 06/27/2020 11:23 AM SUPERVISOR UNLOADING Height 167.6 cm (5' 6 ) 06/27/2020 11:23 AM SUPERVISOR UNLOADING Body Mass Index 25.18 06/27/2020 11:23 AM SUPERVISOR UNLOADING Functional Status Functional Status Response Date of [...] exam COMPREHENSIVE METABOLIC PANEL 10/08/2018 1:18 PM SUPERVISOR UNLOADING from Last 3 Months or Most Recently [...] of containers..01 ThinPrep Vial Resulting Agency Comment [address] [place] [phone] Natali Whiteside CMM INSPECTOR-DIRECTOR OUTCOMES LAB - PATHOLOGY/CY TOLOGY ORDERABLES [facility] [address] [place] [address] * COMPREHENSIVE METABOLIC PANEL (10/08/2018 1:18 PM SUPERVISOR UNLOADING) [facility] Glucose 98 74 - 106 mg/dL [...] [facility] INSURANCE BILL Comment:FASTING 10/08/2018 1:18 PM SUPERVISOR UNLOADING 10/08/2018 Narrative Resulting Agency Comment [address] [phone] Williams Avalos MD LAB - CHEMISTRY KAREN HOLLINS [facility] INSURANCE BILL [address] [place] [address] from Last 3 Months or Most Recently Relevant to Health Maintenance Advance Directives Documents on File Type Date Recorded Patient Veneer Slicing Machine Operator Expl anation Adv Directive/Living Will/POA 12/10/2016 * Full Code (Latest Code Status on File) Date Activated Date Inactivated Comments 12/14/2016 12:49 AM 12/16/2016 12:21 PM * Full Code Date Activated Date Inactivated Comments 12/10/2016 2:26 PM 12/11/2016 5:18 PM * Full Code Date Activated Date Inactivated Comments 12/10/2016 1:49 PM 12/10/2016 2:26 PM Care Teams Door Clamp Operator Relationship Specialty Start Date End Date Pcp, [facility] 3rd PCP - General 09/14/24 Charlene Murillo MD [address] [address] [address] [place] [address] Consulting Physician Pulmonary Disease 04/09/18 Lenin Frances MD [address] [facility] [address] [place] [id number] Pain Management Anesthesiology 10/08/18 Sylvester Brown MD [address] [place] [address] Psychiatry 12/23/18 Cornell Bingham MD [address] [place] [phone] Cardiovascular Disease 06/15/19
--- OUTSIDE RECORDS SUMMARY | 2024-10-08 05:34 | XMS_ITS | Clinical Summary ---
Author Organization [facility] Address [address] [place] [address] Phone Care Team Providers Care Mechanical Insulator Name Role Phone Shruthi Modi MD Primary Care Provider [phone] Fortino Hess MD Unavailable David Beltran DO Unavailable [phone] Allergies Active Allergy Reactions Criticality Noted Date [...] AT BEDTIME 07/29/20 23 Active Glucose Blood ([facility] Strip USE TO TEST DAILY 09/01/19 [...] Zavegepant HCl (Zavzpret) 10 MG/ACT Solution 1 [place] by Nasal route. 07/07/20 23 025 Discontin [...] Department Care Team Description 09/27/2024 11:45 AM SAFETY LEAD Clinical Support [facility] [address] [phone] Nurse, Cc Sethon Beta thalassemia (HCC) (Primary Dx) 09/27/2024 11:15 AM SAFETY LEAD Office Visit [facility] [address] [phone] Nhung Pickett APRN, SPECIAL EDUCATION TUTOR Beta thalassemia (HCC) (Primary Dx); Anemia, unspecified [...] Sex Assigned at Female 09/07/2023 6:16 PM SAFETY LEAD Legal Sex Female 1:02 PM CDT Gender Identity Female 09/07/2023 6:16 PM SAFETY LEAD Sexual Orientation Straight 09/07/2023 6: 16 PM SAFETY LEAD Last Filed Vital Signs Vital Sign Reading Time Taken Comments Blood Pressure 160/100 09/27/2024 12:09 PM SAFETY LEAD Pulse 75 09/27/2024 12:09 PM SAFETY LEAD Temperature 36.6 C (97.8 F) 09/27/2024 12:09 PM SAFETY LEAD Respiratory Rate 18 09/27/2024 12:0 9 PM SAFETY LEAD Oxygen Saturation 98% 09/27/2024 12: 09 PM SAFETY LEAD Inhaled Oxygen Concentration - - Weight 69.3 kg (152 lb 11.2 oz) 025 12:09 PM SAFETY LEAD Height 167.6 cm (5' 6 ) 09/27/2024 12:0 9 PM SAFETY LEAD Body Mass Index 24.65 09/27/2024 12:09 PM SAFETY LEAD Plan of Treatment Upcoming Encounters Date Type Department Care Team (Late st Contact Info) Description 12/27/2024 11:00 AM CDT Office Visit [facility] [address] [phone] David Beltran, [address] [place] [phone] 12/27/2024 11:00 AM CDT Lab [facility] [address] [phone] Nurse, [facility] Health Maintenance Due Date Last Done Comments Hepatitis B Immunization (1 of 3 - 19+ 3-dose series) 1988 Cologuard 2019 Immunochemical Fecal Occult Blood 2019 Influenza Immunization (#1) 2024 092 12/2022, 10/29/2022, 06/12/2022, Additional history exists SARS-COV-2 Immunization ( season) 2024 08/29/2023, 05/12/2023, 10/22/2022, Additional history exists Mammogram 09/03/2025 09/03/2024, 06/18, 07/01/2024, Additional history exists Colonoscopy [...] AUTO DIFF [place] Routine 09/27/2024 11:38 AM SAFETY LEAD VITAMIN B12 Routine 09/27/2024 11:38 AM SAFETY LEAD Anemia, unspecified type Bleeding Other fatigue FOLIC ACID (FOLATE) Routine 09/27/2024 1 1:38 AM SAFETY LEAD Anemia, unspecified type Bleeding Other fatigue FERRITIN Routine 09/27/2024 11:38 AM SAFETY LEAD Anemia, unspecified type Bleeding Other fatigue IRON W/ IRON BINDING CAPACITY [place] Routine 09/27/2024 11:38 AM SAFETY LEAD Anemia, unspecified type Bleeding Other fatigue from Last 3 Months Results * IRON W/ IRON BINDING CAPACITY [place] (09/27/2024 11:38 AM SAFETY LEAD) IRON 162 50 - 212 ug/dL CANC[facility] TERRITORY SALES [facility]NAGER [facility] UIBC 262 155 - 355 ug/dL CANCER TERRITORY SALES MANAGER [facility] TIBC 424 261 - 478 ug/dl [facility] % Saturation 38 20 - 50 % CANCER TERRITORY SALES MANAGER [facility] 09/27/2024 11:3 8 AM SAFETY LEAD Narrative [facility] - 09/27/2024 1:05 PM SAFETY LEAD Release to patient->Immediate us Nisreen Atkinson TERRITORY ACCOUNT MANAGER, SPECIAL EDUCATION TUTOR LAB SEND OUTS Fin al Result CAN[facility]ER TERRITORY SALES MANAGER [facility] [place] [address], * (ABNORMAL) CBC WITH AUTO DIFF [place] (09/27/2024 11:38 AM SAFETY LEAD) WBC 5.8 4.0 - 10.0 10*3/uL CANCER TERRITORY SALES MANAGER [facility] HGB 11.1(L) 11.2 - 15.7 g/dL CANCER TERRITORY SALES MANAGER [facility] HCT 35.7 34.1 - 44.9 % CANCER TERRITORY SALES MANAGER [facility] PLT 232 163 - 369 10*3/uL CANCER TERRITORY SALES MANAGER [facility] MPV See below 9.4 - 12.4 fL CANCER TERRITORY SALES MANAGER [facility] Comment:Instrument unable to provide an accurate result RBC 5.41(H) 3.93 - 5.22 10*6/uL CANCER TERRITORY SALES MANAGER [facility] MCV 66(L) 79 - 95 fL CANCER TERRITORY SALES MANAGER [facility] MCH 20.5(L) 25.6 - 32.2 pg CANCER TERRITORY SALES MANAGER [facility] MCHC 31.1(L) 32.2 - 36.5 g/dL CANCER TERRITORY SALES MANAGER [facility] RDW 17.5(H) 11.6 - 14.4 % CANCER TERRITORY SALES MANAGER [facility] Neutrophils % 66.2(H) 36.0 - 66.0 % CANCER TERRITORY SALES MANAGER [facility] Lymphocytes % 24.1 19.0 - 40.0 % CANCER TERRITORY SALES MANAGER [facility] Monocytes % 7.7 4.1 - 12.1 % CANCER TERRITORY SALES MANAGER [facility] Eosinophils % 1.2 0.0 - 3.5 % CANCER TERRITORY SALES MANAGER [facility] Basophils % 0.3 0.0 - 1.0 % CANCER TERRITORY SALES MANAGER [facility] Absolute Neutrophils 3.8 1.4 - 6.6 10*3/uL CANCER TERRITORY SALES MANAGER [facility] Absolute Lymphocytes 1.4 0.8 - 4.0 10*3/uL CANCER TERRITORY SALES MANAGER [facility] Absolute Monocytes 0.5 0.2 - 1.2 10*3/uL CANCER TERRITORY SALES MANAGER [facility] Absolute Eosinophils 0.1 0.0 - 0.4 10*3/uL CANCER TERRITORY SALES MANAGER [facility] Absolute Basophils 0.0 0.0 - 0.1 10*3/uL CANCER TERRITORY SALES MANAGER [facility] WBC Estimate Normal CANCER TERRITORY SALES MANAGER [facility] Platelet Estimate Normal CA NCER TERRITORY SALES MANAGER [facility] RBC Morphology Abnormal CANCE R TERRITORY SALES MANAGER [facility] Microcytosis 2+ CANCER TERRITORY SALES MANAGER [facility] Hypochromasia 2+ CANCER TERRITORY SALES MANAGER [facility] Anisocytosis 1+ CANCER TERRITORY SALES MANAGER [facility] Poikilocytosis 1+ CANCE R TERRITORY SALES MANAGER [facility] Target Cells 1+ CANCER TERRITORY SALES MANAGER [facility] Elliptocytes 1+ CANCER TERRITORY SALES MANAGER [facility] Schistocytes 1+ CANCER TERRITORY SALES MANAGER [facility] 09/27/2024 11:3 8 AM SAFETY LEAD us Nisreen Atkinson APRN, SPECIAL EDUCATION TUTOR LAB SEND OUTS Fin al Result CANCER TERRITORY SALES MANAGER [facility] [place] [address] [place] [address], * VITAMIN B12 (09/27/2024 11:38 AM SAFETY LEAD) Vitamin B12 625 180 - 914 pg/mL CANCER TERRITORY SALES MANAGER [facility] Blood 09/27/2024 11:3 8 AM SAFETY LEAD Narrative [facility] - 09/28/2024 3:26 PM SAFETY LEAD Release to patient->Immediate us Nisreen E Bertaattei TERRITORY ACCOUNT MANAGER, SPECIAL EDUCATION TUTOR CHEMISTRY ORDERABLE S Final Result Performing Organization Address City/[facility]/ZIP Co de Phone Number CANCER TERRITORY SALES MANAGER [facility] [address] [place] [address], [place] [phone] * FOLIC ACID (FOLATE) (09/27/2024 11:38 AM SAFETY LEAD) Folate >20.00 >=5.90 ng/mL CANCER TERRITORY SALES MANAGER [facility] Blood 09/27/2024 11:3 8 AM SAFETY LEAD Narrative [facility] - 09/28/2024 3:26 PM SAFETY LEAD Release to patient->Immediate IS THE PATIENT REQUIRED TO BE FASTING FOR 12 HOURS?->No us Nisreen Atkinson TERRITORY ACCOUNT MANAGER, SPECIAL EDUCATION TUTOR CHEMISTRY ORDERABLE S Final Result Performing Organization Address [facility] Co de Phone Number CANCER TERRITORY SALES MANAGER [facility] [address] [place] [address], [place] [phone] * FERRITIN (09/27/2024 11:38 AM SAFETY LEAD) Ferritin 160 11 - 307 ng/mL [facility] Blood 09/27/2024 11:3 8 AM SAFETY LEAD [facility] - 09/28/2024 3:26 PM SAFETY LEAD Release to patient->Immediate us Nisreen E Bertaattei TERRITORY ACCOUNT MANAGER, SPECIAL EDUCATION TUTOR CHEMISTRY ORDERABLE S Final Result Performing Organization Address City/[facility]/ZIP Co de Phone Number CANCER TERRITORY SALES MANAGER [facility] [address] [place] [address], [place] [phone] from Last 3 Months Insurance [facility] Care Teams Mechanical Insulator Relationship Specialty Start Date End Date Shruthi Modi MD [address] [place] [address] PCP - General Family Medicine 01/11/22 Fortino Hess MD [address] [place] [phone] Consulting Physician Oncology 01/11/22 David Beltran DO [address] [place] [address] Consulting Physician Oncology 09/02/23
--- OUTSIDE RECORDS SUMMARY | 2024-10-08 05:34 | XMS_ITS | Encounter Summary ---
Author Organization [facility] Facility Care Team Providers Care Costumer Assistant Name Role Phone Paddy Riley MD, Fabrizio Unavailable [phone] Chris Mahmood DO Primary Care Provider + No, Physician Primary Care Provider [phone] Shruthi Modi MD Primary Care Provider Dmitry Laguna MD Unavailable [phone] Bita Irby MD Unavailable [phone] Encounter Details Date Type Department Care Team (Latest Contact Info) Description 10/29/2017 Orders Only [facility] CLINCONV ProviderRay MD [address] [place] [id number] Social History Tobacco Use Types Packs/Day Years Used Date Smoking Tobacco: Never Assessed Comments Unknown Sex and Gender Information Value Date Recorded Sex Assigned at Not on file Legal Sex Female 6:55 AM WELDING EQUIPMENT REPAIRER Gender Identity Female 07/23/2020 8:34 PM WELDING EQUIPMENT REPAIRER Sexual Orientation Straight 07/23/2020 8: 34 PM WELDING EQUIPMENT REPAIRER documented as of this encounter Plan of [...] documented as of this encounter Care Teams Costumer Assistant Relationship Specialty Start Date End Date Chris Mahmood DO [address] [place] [id number] PCP - General Family Medicine 07/05/21 10/04/21 No, Physician PCP - General 10/15/21 10/23/21 Shruthi Modi MD [address] [facility] [place] [address] PCP - General Family Practice 10/24/21 Fabrizio Thomason Jr., MD Medical Oncologist/Hematologis t Medical Oncology 03/02/21 10/04/24 Dmitry Laguna MD [address] [facility] [place] [address] Referring Physician Endocrinology Diabetes & Metabolism 05/21/23 10/04/24 Bita Irby MD [address] [facility] [address] [address] Consulting Physician Endocrinology Diabetes & Metabolism 10/05/24 documented as of this encounter
--- OUTSIDE RECORDS SUMMARY | 2024-10-08 05:35 | XMS_ITS | Referral Summary ---
Author Organization [facility] Address [address] [place] [address] Care Team Providers Care Neonatal Specialist Name Role Phone Shruthi Modi MD Primary Care Provider Bita Irby MD Unavailable [phone] Encounters Date Type Department Care Team Description 09/21/2024 Telephone [facility] Endocrinology Metabolism and Lipid [address] [facility] 5th [place] [address] [place] [phone] Regla Gil, paid intern Results 09/14/2024 Orders Only [facility] Medical [facility] Obstetrical Gynecology [address] [place] [address] [place] [phone] Edmond Bruno MD 09/14/2024 Telephone [facility] Obstetrical Gynecology [address] [place] [address] [place] [phone] Edmond Bruno MD 09/08/2024 Telephone [facility] Endocrinology Metabolism and Lipid [address] [facility] [address] [place] [phone] Regla Gil RN Follow-up 09/08/2024 10:40 AM AIR INTELLIGENCE OFFICER Office Visit [facility] Endocrinology Metabolism and Lipid [address] [facility] 5[address] [place] [address] [place] [address] Bita Irby MD Type 2 diabetes mellitus with hyperglycemia, without long-term current use of insulin (HCC) (Primary Dx); Osteopenia, unspecified location; Compression fracture of lumbar vertebra, unspecified lumbar vertebral level, sequela 08/31/2024 Telephone [facility] Endocrinology Metabolism and Lipid [address] [facility] 5th [place] [address] [place] [address] Regla Gil RN CGKenisha 07/22/2024 1:30 PM AIR INTELLIGENCE OFFICER Procedure visit [facility] Medical Group Neurology [address] [facility] [address] [place] [address] Xiomara Hernandez NP Intractable chronic [...] tablet (20 mg total) by mouth daily Active latanoprost (XALATAN) 0.005 % ophthalmic solution INSTILL 1 DROP IN BOTH EYES AT BEDTIME Active AMILoride (MIDAMOR) 5 mg tablet Take 1 tablet (5 mg total) by mouth 2 (two) times a day Active albuterol HFA (PROVENTIL HFA,VENTOLIN HFA,PROAIR HFA) 90 mcg/actuation inhaler INHALE 2 PUFFS BY MOUTH EVERY 4 HOURS NEEDED FOR WHEEZING OR SHORTNESS OF BREATH 8.5 g Active sucralfate (CARAFATE) 1 gram tablet Take 1 tablet (1 g total) by mouth 4 (four) times a day Active losartan (COZAAR) 100 mg tablet Active fluticasone propion-salmetero L (ADVAIR DISKUS) 250-50 mcg/dose diskus inhaler Inhale 1 puff 2 (two) times a day Active Auvelity 45-105 mg tablet, IR & ER, biphasic Take 1 tablet by mouth 2 (two) times a day Active cloNIDine (CATAPRES) 0.1 mg tablet Active amLODIPine (NORVASC) 10 mg tablet Active HYDROcodone-aceta minophen (NORCO) 5-325 mg per tablet Take 1 tablet by mouth 2 (two) times a day as needed Active UribeL 118-10-40.8-36 mg capsule TAKE 1 CAPSULE BY MOUTH EVERY 6 HOURS NEEDED Active prednisoLONE acetate (PRED FORTE) 1 % ophthalmic suspension Active rimegepant (Nurtec ODT) tablet,disintegra ting Take 1 tablet (75 mg total) by mouth daily 4 tablet Active cycloSPORINE (Vevye) 0.1 % drops Active ondansetron ODT (ZOFRAN-ODT) 4 mg disintegrating tablet Active Qelbree 200 mg capsule,extended release 24hr Take 2 capsules (400 mg total) by mouth daily Active lancets (Accu-Chek Fastclix Lancet Drum) miscIndications:T ype 2 diabetes mellitus with hyperglycemia, without long-term current use of insulin (HCC) Use to check blood sugar 2-3 times per day. 102 each 11 Active blood glucose diagnostic (Accu-Chek Guide test strips) stripIndications: Type 2 diabetes mellitus with hyperglycemia, without long-term current use of insulin (HCC) Use to test blood sugar 2-3 times per day. 100 strip 11 Active baclofen (LIORESAL) 10 mg tablet Take 1 tablet (10 mg total) by mouth 3 (three) times a day as needed Active lancing device with lancets kit Use to check blood sugar 2-3 times per day. Active galcanezumab-gnlm (Emgality Pen) 120 mg/mL pen injector Inject 120 mg under the skin every 30 (thirty) days 2 mL Active apixaban 5 mg (74 tabs) tablets,dose pack Take 10 mg (2 tablets) by mouth 2 (two) times a day for 7 days, then take 5 mg (1 tablet) by mouth 2 (two) times a day thereafter. 74 tablet Active estradioL (ESTRACE) 0.01 % (0.1 mg/gram) vaginal cream APPLY 1G(FINGERTIP WORTH) NIGHTLY TO VAGINA FOR 2 WEEKS, THEN EVERY OTHER DAY FOR 2 WEEKS, THEN TWICE WEEKLY FOR MAINTENECE 42.5 g Active semaglutide (Ozempic) 0.25 mg or 0.5 mg (2 mg/3 mL) pen injector injectionIndicati ons:Type 2 diabetes mellitus with hyperglycemia, without long-term current use of insulin (HCC) Inject 0.5 mg under the skin once a week 3 mL 2 Active Spravato 84 mg (28 mg x 3) nasal spray 3 sprays in each nostril Nasally twice a week for 1 days Active meloxicam (MOBIC) 15 mg tablet Take 1 tablet (15 mg total) by mouth daily Active tenapanor (Ibsrela) 50 mg tablet every 12 (twelve) hours Active blood-glucose meter,continuous (Dexcom G6 Nut Steamer) misc Use as directed 1 each Active blood-glucose sensor (Dexcom G6 Sensor) device Use as directed 6 each 1 Active blood-glucose transmitter (Dexcom G6 Transmitter) device Use as directed 3 each 1 025 Active glycerin-min oil-polycarbophil gel Place 1-2g (fingertip worth) in vaginal canal twice weekly-PRN for vaginal dryness 42.5 g 3 Active metFORMIN XR (GLUCOPHAGE XR) 500 mg 24 hr tabletIndications :Type 2 diabetes mellitus with hyperglycemia, without long-term current use of insulin (HCC) Take 1 tablet (500 mg total) by mouth 2 (two) times a day 60 tablet Active galcanezumab-gnlm 120 mg/mL pen injector Inject 120 mg under the skin every 30 (thirty) days 1 mL 5 025 Active galcanezumab-gnlm 120 mg/mL pen injector Inject 120 mg under the skin every 30 (thirty) days 1 mL 5 024 2024 Discontinued(R eorder) metFORMIN XR (GLUCOPHAGE XR) 500 mg 24 hr tabletIndications :Type 2 diabetes mellitus with hyperglycemia, without long-term current use of insulin (HCC) TAKE 2 TABLETS BY MOUTH TWICE DAILY WITH MEALS 120 tablet 025 2024 Discontinued Active Problems Problem Noted Date [...] 09/09/2020 Assessment & Plan (09/09/2020 7:50 AM AIR INTELLIGENCE OFFICER): Discussed CDC guideline for quarantine. Drink plenty [...] CDT): Patient is a former patient of [facility] being treated with combination migraine prophylaxis [...] IFG (impaired fasting glucose) 01/02/2016 11/04/2023 Immunizations Immunization Administration Dates Next Due DTaP 12/18/2015 Influenza, Quadrivalent, Rec ombinant, Egg Free, Preservative Free, Intramuscular 06/15/2019 Influenza, Quadrivalent, Spl it, Preservative Free, Intramuscular 06/12/2022,05/17/2020,05/22/2018,05/10 Influenza, Split 06/01/2010,09/06/2005 Influenza, Trivalent, IM (MDV) 05/22/2021,2016 Influenza, Trivalent, Preser vative Free, Intramuscular 07/18/2016,07/06/2015 Influenza, Unspecified 05/17/2020,2018,05/22/2018,06/01,09/06/2005 Pfizer SARS-CoV-2 Monovalent Vaccination (12+ Yrs) AVILA-READY TO [...] on file Legal Sex Female 6:55 AM AIR INTELLIGENCE OFFICER Gender Identity Female 07/23/2020 8:34 PM AIR INTELLIGENCE OFFICER Sexual Orientation Straight 07/23/2020 8: 34 PM AIR INTELLIGENCE OFFICER Last Filed Vital Signs Vital Sign Reading Time Taken Comments Blood Pressure 114/75 09/08/2024 11:09 AM AIR INTELLIGENCE OFFICER Pulse 81 09/08/2024 11:09 AM AIR INTELLIGENCE OFFICER Temperature 36.5 C (97.7 F) 09/08/2024 11:09 AM AIR INTELLIGENCE OFFICER Respiratory Rate 16 06/15/2024 8:35 PM CDT Oxygen Saturation 100% 06/15/2024 8:35 PM CDT Inhaled Oxygen Concentration - - Weight 68 kg (150 lb) 09/08/2024 11:09 AM AIR INTELLIGENCE OFFICER Height 167.6 cm (5' 6 ) 09/08/2024 11:09 AM AIR INTELLIGENCE OFFICER Body Mass Index 24.21 09/08/2024 11:09 AM AIR INTELLIGENCE OFFICER Plan of Treatment Not on file Procedures Procedure Name Priority Date/Time Associated Diagnosis Comments BOTOX INJECTION Routine 07/22/2024 1:30 PM AIR INTELLIGENCE OFFICER Intractable chronic migraine without aura and without status migrainosus EGFR STAT 06/15/2024 2:40 PM CDT DIABETIC EYE EXAM Routine 02/16/2024 2:0 5 PM CDT HEMOGLOBIN A1C Routine 11/04/2023 11:15 AM CDT Adrenal mass (HCC) Type 2 diabetes mellitus with other specified complication, unspecified whether group home insulin use (HCC) LIPID PANEL Routine 11/04/2023 11:15 AM CDT Adrenal mass (HCC) Type 2 diabetes mellitus with other specified complication, unspecified whether group home insulin use (HCC) ALBUMIN CREATININE RATIO, URINE Routine 11/04/2023 11:15 AM CDT Adrenal mass (HCC) Type 2 diabetes mellitus with other specified complication, unspecified whether terminal manager insulin use (HCC) PAP AND HIGH RISK HPV, REFLEX TO GENOTYPING Routine 06/11/2023 11:48 AM CDT Encounter for screening for malignant neoplasm of cervix COLONOSCOPY Routine 07/06/2020 SCREENING MAMMOGRAM BILATERAL W RADU Routine 12/31/2016 12:28 PM CDT from Last 3 Months or Most Recently Relevant to Health Maintenance Results * Botox Injection (07/22/2024 1:30 PM AIR INTELLIGENCE OFFICER) Narrative Ritika Treadwell - 07/22/2024 1:30 PM AIR INTELLIGENCE OFFICER Ritika Treadwell 07/23/2024 12:25 PM Botox Injection Performed by: Xiomara Hernandez NP Authorized by: Xiomara Hernandez NP Trilla Protocol: Consent Given by: Patient Timeout: prior [...] Hernandez NP Authorized by: Xiomara Hernandez NP Trilla Protocol: Consent Given by: Patient Timeout: prior [...] reviewed 2021. Testing performed by: [facility], [address] [place] [address]., [id number] Blood 06/15/2024 2:40 PM CDT 06/15/2024 2:50 PM CDT us Chris Lopez Jr., MD LAB BLOOD ORDERABLES Fi nal Result Performing Organization Address City/[facility]/ZIP Co de Phone Number RAYMON [address] [facility] Department [place] [address] * Diabetic Eye Exam (02/16/2024 2:05 PM CDT) Historical Provider HEALTH MAINTENANCE Final Result * (ABNORMAL) Albumin Creatinine Ratio, Urine (11/04/2023 11:15 AM CDT) Microalb, Ur 22.7 0.0 - 22.9 mg/L [facility] Random Urine Creatinine 60.7 mg/dL [facility] Microalb/Creat Ratio 37.4(H) 0.0 - 29.9 mg/g [facility] Urine 11/04/2023 11:1 5 AM CDT 11/04/2023 12:42 PM CDT Bita Irby MD LAB URINE ORDERABLES Final Res ult Performing Organization Address City/[facility]/ZIP Co de Phone Number [facility] LAB [facility] * (ABNORMAL) Hemoglobin A1c (11/04/2023 11:15 AM CDT) HbA1c 6.9(H) 5.1 - 5.6 % [facility] Comment: HBA1C 5.1 - 5.6 = NORMAL HBA1C 5.7 - 6.4 = PREDIABETES HBA1C >=6.5 = PROVISIONAL DIAGNOSIS OF DIABETES Estimated Average Glucose 151 mg/dL [facility] Blood 11/04/2023 11:1 5 AM CDT 11/04/2023 12:42 PM CDT us Bita Irby MD LAB BLOOD ORDERABLES Final Res ult [facility] CORE LAB [facility] * (ABNORMAL) Lipid panel (11/04/2023 11:15 AM CDT) Pathologist [facility] Triglycerides 211(H) <150 mg/dL [facility] Comment: Desirable: <150 mg/dL, fasting <175 mg/dL, non-fasting Persistently elevated triglycerides may enhance atherosclerotic cardiovascular disease. Total Cholesterol 153 <200 mg/dL [facility] Total HDL-C Direct 54 >50 mg/dL [facility] Non-HDL cholesterol 99 <220 mg/dL [facility] Friedewald LDL Chol 57 <190 mg/dL [facility] Comment: The inaccuracy of the Friedewald equation at LDL Cholesterol less than 70 mg/dL has been documented. Various other calculations are under investigation, such as Noel M, et al. BRENNA Cardiol. 2020;5(5):540-548 or Jarvis [...] AM CDT 11/04/2023 12:42 PM CDT Narrative [facility] CORE LAB - 11/04/2023 1:37 PM CDT Current interpretive data was last updated July 20, 2021. For adults ages 40-79, the ACC/AHA recommends discussing your 10-year atherosclerotic cardiovascular disease risk with your health care provider. https://www.acc.org/ASCVDApp us Bita Irby MD LAB BLOOD ORDERABLES Final Res ult DO CORE LAB [facility] * Pap and High Risk HPV and Genotyping (Cytology Component) (06/11/2023 11:48 AM CDT) Endocervical (Pap test) 06/11/2023 11:48 AM CDT 06/13/2023 11:48 AM CDT Narrative PATHOLOGY [facility] - 06/17/2023 3:27 PM CDT [facility] Department of Pathology [address] [place] [address] Final Report with Addendum Note to Patients: [...] the details. Patient Name: COLIN BOYD Address: [address] [place] [address] [address] [place] [address] Gender: F : 1970 (Age: 53) Service: Location: [facility] : [id number] [facility] #: [id number] Patient Type: [facility] SPECIMEN Taken: 06/11/2023 Received: 06/13/2023 Accessioned:: 06/13/2023 Reported: 06/17/2023 Physician(s): Edmond Bruno M.D. [facility] Diagnosis: SOURCE OF SPECIMEN SCREENING THIN PREP IMAGED PAP w/ HPV: STATEMENT OF ADEQUACY - Satisfactory for evaluation; endocervical/transformation zone component present - This case was rejected by computer assisted technology and was manually screened by a television picture tube rebuilder GENERAL CATEGORIZATION: - Negative for intraepithelial lesion or malignancy Carola [place], CT(ASCP)LEVON Lerma(ASCP) Report Electronically Reviewed and Signed Out [...] test have been verified by the [facility] Molecular Infectious Disease laboratory. Correlate with reported cytology results, as applicable. Interpretive data last revised 23 LEVON Lerma(ASCP)Report Electronically Reviewed and Signed Out By LEVON Lerma(ASC) 06/16/2023 08:27:17 Specimen(s) Received: A: SCREENING THIN [...] determined by the Surgical Pathology Department at [facility] as part of an ongoing quality assurance monitor final program and in compliance with federally mandated [...] characteristics determined by the Surgical Pathology Department [facility]. It has not been cleared or approved by the U. S. Food and Drug Administration. Edmond Bruno MD LAB CYTOLOGY ORDERABLES Final Result PATHOLOGY [facility] * Colonoscopy (07/06/2020) Anatomical Region Laterality Modality Other Historical Provider ENDOSCOPY PROCEDURES Zulma l Result * Screening Mammogram Bilateral W Radu (12/31/2016 12:28 PM CDT) Anatomical Region Laterality Modality Breast Bilateral Mammography 12/31/2016 12:2 8 PM CDT Impressions 01/06/2017 10:47 AM CDT BI-RAD 1 NEGATIVE There is no mammographic evidence of malignancy. A 1 year screening mammogram is recommended. The patient has been or will be contacted. The patient will be entered into a reminder system with a target due date of 1 year for her next screening exam. Electronically signed by: Ramesh Wilcox M.D., md/kylah:12/31/2016 12:45:31 Education Technician: Flory Flores Mammography letter sent: Normal Exam Reading location: BI-RADS: 1 Negative [EOD] Narrative 01/06/2017 10:47 AM CDT - MG BILATERAL DIGITAL SCREENING MAMMOGRAM 3D/2D WITH MEDIOLATERAL OBLIQUE CRANIOCAUDAL: 12/31/2016 The study was acquired using full field digital technology and interpreted from soft copy. 2D digital mammographic views, as well as 3D digital tomosynthesis were performed in the CC and MLO projections. CLINICAL: Baseline mammogram. Patient denies any problems. Sister and maternal cousin with breast cancer. No personal history of breast cancer. COMPARISONS: No prior exams were available for comparison. BREAST TISSUE: There are scattered areas of fibroglandular density. FINDINGS: No significant masses, calcifications, or other findings are seen in either breast. Procedure Note Provider, MD Ray - 01/02/2021 - MG BILATERAL DIGITAL SCREENING MAMMOGRAM 3D/2D WITH MEDIOLATERAL OBLIQUE CRANIOCAUDAL: 12/31/2016 The study was acquired using full field digital technology and interpretedfrom soft copy. 2D digital mammographic views, as well as 3D digital tomosynthesis were performed in the CC and MLO projections. CLINICAL: Baseline mammogram. Patient denies any problems. Sister andmaternal cousin with breast cancer. No personal history of breast cancer. COMPARISONS: No prior exams were available for comparison. BREAST TISSUE: There are scattered areas of fibroglandular density. FINDINGS: No significant masses, calcifications, or other findings areseen in either breast. IMPRESSION: BI-RAD 1 NEGATIVE There is no mammographic evidence of malignancy. A 1 year screeningmammogram is recommended. The patient has been or will be contacted. The patient will be entered into a reminder system with a target due dateof 1 year for her next screening exam. Electronically signed by: Ramesh Wilcox M.D., md/kylah:12/31/2016 12:45:31 Education Technician: lFory Flores Mammography letter sent: Normal Exam Reading location: BI-RADS: 1 Negative [EOD] Nena Eid MD IMG MAMMO PROCEDURES Fi nal Result from Last 3 Months or Most [...] Please contact Infection Prevention. 01/16/2024 01/16/[address] [place] [address] [facility] PPO [facility] Care Teams Neonatal Specialist Relationship Specialty Start Date End Date Shruthi Modi MD [address] [facility] [place] [address] PCP - General Family Practice 10/24/21 Bita Irby MD [address] [facility], [address] [address] Consulting Physician Endocrinology Diabetes & Metabolism 10/05/24
--- OUTSIDE RECORDS SUMMARY | 2024-10-08 05:35 | XMS_ITS | Clinical Summary ---
Author Organization [facility] Address [address] [place] [address] Care Team Providers Care Sr. Operations Manager Name Role Phone Shruthi Modi MD Primary Care Provider Bita Irby MD Unavailable [phone] Allergies Active Allergy Reactions Criticality Noted Date [...] tablet (20 mg total) by mouth daily 021 Active latanoprost (XALATAN) 0.005 % ophthalmic solution INSTILL 1 DROP IN BOTH EYES AT BEDTIME Active AMILoride (MIDAMOR) 5 mg tablet Take 1 tablet (5 mg total) by mouth 2 (two) times a day 021 Active albuterol HFA (PROVENTIL HFA,VENTOLIN HFA,PROAIR HFA) 90 mcg/actuation inhaler INHALE 2 PUFFS BY MOUTH EVERY 4 HOURS NEEDED FOR WHEEZING OR SHORTNESS OF BREATH 8.5 g 022 Active sucralfate (CARAFATE) 1 gram tablet Take 1 tablet (1 g total) by mouth 4 (four) times a day 023 Active losartan (COZAAR) 100 mg tablet 023 Active fluticasone propion-salmetero L (ADVAIR DISKUS) 250-50 mcg/dose diskus inhaler Inhale 1 puff 2 (two) times a day 023 Active Auvelity 45-105 mg tablet, IR & [...] sugar 2-3 times per day. 100 strip Active baclofen (LIORESAL) 10 mg tablet Take [...] (two) times a day thereafter. 74 tablet 024 Active estradioL (ESTRACE) 0.01 % (0.1 mg/gram) vaginal cream APPLY 1G(FINGERTIP WORTH) NIGHTLY TO VAGINA FOR 2 WEEKS, THEN EVERY OTHER DAY FOR 2 WEEKS, THEN TWICE WEEKLY FOR MAINTENECE 42.5 g 024 Active semaglutide (Ozempic) 0.25 mg or 0.5 mg (2 mg/3 mL) pen injector injectionIndicati ons:Type 2 diabetes mellitus with hyperglycemia, without long-term current use of insulin (HCC) Inject 0.5 mg under the skin once a week 3 mL 2 024 Active Spravato 84 mg (28 mg x 3) nasal spray 3 sprays in each nostril Nasally twice a week for 1 days 024 Active meloxicam (MOBIC) 15 mg tablet Take 1 tablet (15 mg total) by mouth daily 024 Active tenapanor (Ibsrela) 50 mg tablet every 12 (twelve) hours Active blood-glucose meter,continuous (Dexcom G6 Sand Analyst) misc Use as directed 1 each 025 Active blood-glucose sensor (Dexcom G6 Sensor) device Use as directed 6 each 1 025 Active blood-glucose transmitter (Dexcom G6 Transmitter) device Use as directed 3 each 1 025 Active glycerin-min oil-polycarbophil gel Place 1-2g (fingertip worth) in vaginal canal twice weekly-PRN for vaginal dryness 42.5 g 3 025 Active metFORMIN XR (GLUCOPHAGE XR) 500 mg 24 hr tabletIndications :Type 2 diabetes mellitus with hyperglycemia, without long-term current use of insulin (HCC) Take 1 tablet (500 mg total) by mouth 2 (two) times a day 60 tablet 025 Active galcanezumab-gnlm 120 mg/mL pen injector [...] 09/09/2020 Assessment & Plan (09/09/2020 7:50 AM SSRS REPORT DEVELOPER): Discussed CDC guideline for quarantine. Drink plenty [...] CDT): Patient is a former patient of [facility] being treated with combination migraine prophylaxis [...] Type Department Care Team Description 09/21/2024 Telephone [facility] Endocrinology Metabolism and Lipid [address] [place] [address] [place] [address] Regla Gil, captain waiter/waitress Results 09/14/2024 Orders Only [facility] Obstetrical Gynecology [address] [place] [address] [place] [phone] Edmond Bruno MD 09/14/2024 Telephone [facility] Obstetrical Gynecology [address] [place] [address] [place] [phone] Edmond Bruno MD 09/08/2024 10:40 AM SSRS REPORT DEVELOPER Office Visit [facility] Endocrinology Metabolism and Lipid [address] [place] [address] [place] [id number] Bita Irby MD Type 2 diabetes mellitus with hyperglycemia, without long-term current use of insulin (HCC) (Primary Dx); Osteopenia, unspecified location; Compression fracture of lumbar vertebra, unspecified lumbar vertebral level, sequela 09/08/2024 Telephone [facility] Endocrinology Metabolism and Lipid 1 [facility] [address] [place] [phone] Regla Gil, DEWEY Follow-up 08/31/2024 Telephone [facility] Endocrinology Metabolism and Lipid [address] [place] [address] [place] [address] Regla Gil, RN CGM 07/22/2024 1:30 PM SSRS REPORT DEVELOPER Procedure visit [facility] Neurology [address] [place] [address] [place] [phone] Xiomara Hernandez NP Intractable chronic migraine without aura and without status migrainosus from Last 3 Months Immunizations Immunization Administration Dates Next Due DTaP [...] Cancer Father Ervin Herbert Hypertension Father Ervin Herbert Kidney cancer Father Ervin Herbert Kidney disease [...] 3 Christa Rodriguez Depression Son 1 Gurjit Valdezer Mental illness Son 1 Gurjit Valdezer Depression Son 2 Tree Boyd Mental illness Son 2 Tree Boyd Relation Name Status Comments Daughter Abbie Boyd Father Ervin Herbert (Age 56) Mother Jessica Herbert (Age 83) Other Sister 1 Katie Keon Sister 2 Sun Herbert-Walker Sister 3 Christa Michael Son 1 Gurjit Valdezer Son 2 Tree Boyd Social History Tobacco [...] on file Legal Sex Female 6:55 AM SSRS REPORT DEVELOPER Gender Identity Female 07/23/2020 8:34 PM SSRS REPORT DEVELOPER Sexual Orientation Straight 07/23/2020 8: 34 PM SSRS REPORT DEVELOPER Obstetrics History Para Term AB IAB SAB Ectopic Multiple Livin g Live Births 4 4 4 4 Date Outcome GA Total Labor Labor/2nd/3rd Weight Sex Type Anes PTL Yolanda A1 A5 Name Clin Para Para Para Para Last Filed Vital Signs Vital Sign Reading Time Taken Comments Blood Pressure 114/75 09/08/2024 11:09 AM SSRS REPORT DEVELOPER Pulse 81 09/08/2024 11:09 AM SSRS REPORT DEVELOPER Temperature 36.5 C (97.7 F) 09/08/2024 11:09 AM SSRS REPORT DEVELOPER Respiratory Rate 16 06/15/2024 8:35 PM CDT Oxygen Saturation 100% 06/15/2024 8:35 PM CDT Inhaled Oxygen Concentration - - Weight 68 kg (150 lb) 09/08/2024 11:09 AM SSRS REPORT DEVELOPER Height 167.6 cm (5' 6 ) 09/08/2024 11:09 AM SSRS REPORT DEVELOPER Body Mass Index 24.21 09/08/2024 11:09 AM SSRS REPORT DEVELOPER Plan of Treatment Health Maintenance Due Date Last Done Comments Hepatitis C Screening 1970 Foot Exam 1970 Hepatitis B Screening 1987 Depression Screening 11/02/2021 11/02/2020, 11/02/2020, 08/04/2020, Additional history exists Covid-19 Vaccine (4 - 2023-2 5 season) 2024 12/27/2021, 11/14/2020, 10/24/2020 Influenza Vaccine (#1) 2024 , 10/29/2022, 06/12/2022, Additional history exists Hemoglobin A1C 05/06/2024 11/04/2023, 11/17, 01/11/2016 Regular Well Visit/Exam 18-64 06/11/2024 06/11/2023, 07/03/2020 Pneumococcal vaccine <65 (3 of 3 - PPSV23, PCV20 or PCV21) 06/15/2024 06/15/2019, 10/08/2018 Albumin Creatinine Ratio, Urine [...] Comments BOTOX INJECTION Routine 07/22/2024 1:30 PM SSRS REPORT DEVELOPER Intractable chronic migraine without aura and without status migrainosus EGFR STAT 06/15/2024 2:40 PM CDT DIABETIC EYE EXAM Routine 02/16/2024 2:0 5 PM CDT HEMOGLOBIN A1C Routine 11/04/2023 11:15 AM CDT Adrenal mass (HCC) Type 2 diabetes mellitus with other specified complication, unspecified whether assisted insulin use (HCC) LIPID PANEL Routine 11/04/2023 11:15 AM CDT Adrenal mass (HCC) Type 2 diabetes mellitus with other specified complication, unspecified whether superintendent terminal insulin use (HCC) ALBUMIN CREATININE RATIO, URINE Routine 11/04/2023 11:15 AM CDT Adrenal mass (HCC) Type 2 diabetes mellitus with other specified complication, unspecified whether assisted insulin use (HCC) PAP AND HIGH RISK HPV, REFLEX TO GENOTYPING Routine 06/11/2023 11:48 AM CDT Encounter for screening for malignant neoplasm of cervix COLONOSCOPY Routine 07/06/2020 SCREENING MAMMOGRAM BILATERAL W RADU Routine 12/31/2016 12:28 PM CDT from Last 3 Months or Most Recently Relevant to Health Maintenance Results * Botox Injection (07/22/2024 1:30 PM SSRS REPORT DEVELOPER) Narrative Ritika Treadwell - 07/22/2024 1:30 PM SSRS REPORT DEVELOPER Ritika Treadwell 07/23/2024 12:25 PM Botox Injection Performed by: Xiomara Hernandez NP Authorized by: Xiomara Hernandez NP Mchenry Protocol: Consent Given by: Patient Timeout: prior [...] Hernandez NP Authorized by: Xiomara Hernandez NP Mchenry Protocol: Consent Given by: Patient Timeout: prior [...] was last reviewed 2021. Testing performed by: [facility], [address] [place] [address]., [id number] Blood 06/15/2024 2:40 PM CDT 06/15/2024 2:50 PM CDT us Chris Lopez Jr., MD LAB BLOOD ORDERABLES Fi nal Result RAY[facility] [address] [facility] Department [place] [address] * Diabetic Eye Exam (02/16/2024 [...] MD LAB URINE ORDERABLES Final Res ult [facility] * (ABNORMAL) [...] MD LAB BLOOD ORDERABLES Final Res ult [facility] * [...] AM CDT 11/04/2023 12:42 PM CDT Narrative [facility] CORE LAB - 11/04/2023 1:37 PM CDT Current interpretive data was last updated July 20, 2021. For adults ages 40-79, the ACC/AHA recommends discussing your 10-year atherosclerotic cardiovascular disease risk with your health care provider. [email or web address]://www.acc.org/ASCVDApp Bita Irby MD LAB BLOOD ORDERABLES Final Res ult [facility] * Pap and High Risk HPV and Genotyping (Cytology Component) (06/11/2023 11:48 AM CDT) Endocervical (Pap test) 06/11/2023 11:48 AM CDT 06/13/2023 11:48 AM CDT Narrative PATHOLOGY [facility] - 06/17/2023 3:27 PM CDT [facility] Department of Pathology [address] [place], [place] [id number] Final Report with Addendum Note to Patients: [...] the details. Patient Name: COLIN BOYD Address: [address] [place] [address] [address] [place] [address] Gender: F : 1970 (Age: 53) Service: Location: [facility] : [id number] [place] [facility] #: [id number] Patient Type: [facility] SPECIMEN Taken: 06/11/2023 Received: 06/13/2023 Accessioned:: 06/13/2023 Reported: 06/17/2023 Physician(s): Edmond Bruno M.D. [facility] Diagnosis: SOURCE OF SPECIMEN SCREENING THIN PREP IMAGED PAP w/ HPV: STATEMENT OF ADEQUACY - Satisfactory for evaluation; endocervical/transformation zone component present - This case was rejected by computer assisted technology and was manually screened by a occup ther GENERAL CATEGORIZATION: - Negative for intraepithelial lesion [...] have been verified by the [facility] Molecular Infectious Disease laboratory. Correlate with [...] determined by the Surgical Pathology Department at [facility] as part of an ongoing quality analyst program and in compliance with federally mandated [...] characteristics determined by the Surgical Pathology Department [facility]. It has not been cleared or approved by the U. S. Food and Drug Administration. Edmond Bruno MD LAB CYTOLOGY ORDERABLES Final Result PATHOLOGY MB * Colonoscopy (07/06/2020) Anatomical Region Laterality Modality [...] signed by: Ramesh Wilcox M.D., md/kylah:12/31/2016 12:45:31 Ship Cleaner: Flory Flores Mammography letter sent: Normal Exam [...] signed by: Ramesh Wilcox M.D., md/kylah:12/31/2016 12:45:31 Ship Cleaner: Flory Flores Mammography letter sent: Normal Exam Reading location: BI-RADS: 1 Negative [EOD] us Nena Eid MD IMG MAMMO PROCEDURES Fi [...] Please contact Infection Prevention. 01/16/2024 01/16/[address] [place] [place] [address] [facility] PPO [facility] Care Teams Sr. Operations Manager Relationship Specialty Start Date End Date Shruthi Moid MD [address] [facility] [place] [address] PCP - General Family Practice 10/24/21 Bita Irby MD [address] [facility] IM ENDOCRINOLOGY, [address] [address] Consulting Physician Endocrinology Diabetes & Metabolism 10/05/24
--- OUTSIDE RECORDS SUMMARY | 2024-10-08 05:36 | XMS_ITS ---
Author Organization [facility] [email or web address] [facility] Address [address] [facility] [address] [place] [address] Care Team Providers Care Intake Worker Name Role Phone Ly FIGUEROA, Shruthi Primary Care Provider Unavailab Nicholas Barber Unavailable [phone] REASON FOR VISIT September 28 appointment Social History Sex Assigned At : Social History Observation Description Sex Assigned At Female Encounters Encounter Location Date Provider Diagnosis [facility] [place] [id number] [address] 09/27/2024 Nicholas Malagon Plan Of Treatment Next Appt Details Provider Name:Laith Haji, 10/15/2024 01:00:00 PM, [facility], [address], [address], Provider Name:Laith Haji, 10/29/2024 01:00:00 PM, [facility] [address] [facility], [address], [address], Provider Name:Laith Haji, 11/05/2024 01:15:00 PM, [facility] [address], [address], Provider Name:Nicholas dmoinguez, 11/12/2024 03:30:00 PM, [facility] [address], [address], Progress Notes * ANN BOYDOB:1970 (54 yo F)Acc No.[id number]:09/27/2024 Patient: COLIN POLO :1970 A ge:54 Y S ex:Female Address:[address] [place] [address], [address] * true * Date: Generated for Jessica weiss/Bairon/Hungsmitting on: 0 10/08/2024 05:36 AM BEER COOLER
--- OUTSIDE RECORDS SUMMARY | 2024-10-08 05:37 | XMS_ITS | Encounter Summary ---
Author Organization [facility] Care Team Providers Care Telecasting Engineer Name Role Phone Paddy Riley MD, Fabrizio Unavailable [phone]- [phone] Chris Mahmood DO Primary Care Provider + No, Physician Primary Care Provider [phone] Shruthi Modi MD Primary Care Provider Dmitry Laguna MD Unavailable [phone] Bita Irby MD Unavailable [phone] Encounter Details Date Type Department Care Team (Latest Contact Info) Description 01/29/2016 Orders Only [facility] CLINCONV ProviderRay MD [address] [place] [address] Social History Tobacco Use Types Packs/Day Years Used Date Smoking Tobacco: Never Assessed Comments Unknown Sex and Gender Information Value Date Recorded Sex Assigned at Not on file Legal Sex Female 6:55 AM MUSEUM OR ZOO DIRECTOR Gender Identity Female 07/23/2020 8:34 PM MUSEUM OR ZOO DIRECTOR Sexual Orientation Straight 07/23/2020 8: 34 PM MUSEUM OR ZOO DIRECTOR documented as of this encounter Plan [...] documented as of this encounter Care Teams Telecasting Engineer Relationship Specialty Start Date End Date Chris Mahmood DO [address] [place] [address] PCP - General Family Medicine 07/05/21 10/04/21 No, Physician PCP - General 10/15/21 10/23/21 Shruthi Modi MD [address] [place] [address] PCP - General Family Practice 10/24/21 Fabrizio Thomason Jr., MD Medical Oncologist/Hematologis t Medical Oncology 03/02/21 10/04/24 Dmitry Laguna MD [address] [place] [address] Referring Physician Endocrinology Diabetes & Metabolism 05/21/23 10/04/24 Bita Irby MD [address] [facility] ENDOCRINOLOGY[address] [address] Consulting Physician Endocrinology Diabetes & Metabolism 10/05/24 documented as of this encounter
--- OUTSIDE RECORDS SUMMARY | 2024-10-08 05:37 | XMS_ITS | Encounter Summary ---
Author Organization [facility] Care Team Providers Care Marketing Account Executive Name Role Phone Paddy Riley MD, Fabrizio Unavailable [phone] Chris Mahmood DO Primary Care Provider + No, Physician Primary Care Provider [phone] Shruthi Modi MD Primary Care Provider Dmitry Laguna MD Unavailable [phone] Bita Irby MD Unavailable [phone] Encounter Details Date Type Department Care Team (Latest Contact Info) Description 04/23/2016 Orders Only [facility] CLINCONV ProviderRay MD [address] [place] [address] Social History Tobacco Use Types Packs/Day Years Used Date Smoking Tobacco: Never Assessed Comments Unknown Sex and Gender Information Value Date Recorded Sex Assigned at Not on file Legal Sex Female 6:55 AM DIESEL MECHANIC CONSTRUCTION Gender Identity Female 07/23/2020 8:34 PM DIESEL MECHANIC CONSTRUCTION Sexual Orientation Straight 07/23/2020 8: 34 PM DIESEL MECHANIC CONSTRUCTION documented as of this encounter Plan of [...] documented as of this encounter Care Teams Marketing Account Executive Relationship Specialty Start Date End Date Chris Mahmood DO [address] [place] [address] PCP - General Family Medicine 07/05/21 10/04/21 No, Physician PCP - General 10/15/21 10/23/21 Shruthi Modi MD [address] [facility] [place] [address] PCP - General Family Practice 10/24/21 Fabrizio Thomason Jr., MD Medical Oncologist/Hematologis t Medical Oncology 03/02/21 10/04/24 Dmitry Laguna MD [address] [facility] [place] [address] Referring Physician Endocrinology Diabetes & Metabolism 05/21/23 10/04/24 Bita Irby MD [address] [facility] ENDOCRINOLOGY[address] [address] Consulting Physician Endocrinology Diabetes & Metabolism 10/05/24 documented as of this encounter
--- NOTE | 2024-10-08 07:14 | WPDHPUPDATE1 ---
History and Physical Update Update Date/Time: 10/08/24 07:14 History and Physical has been reviewed, including an updated exam of the patient. There are NO changes in the patient's condition. Risks, benefits, and alternatives have been discussed and questions answered. Patient agrees to proceed with procedure.
--- NOTE | 2024-10-08 08:21 | WPDANESEPPF ---
Anes - Initial Pre Proc Eval Procedure: Operation Date: 10/08/24 09:30 Proposed Procedures p Urethral Sling - Johnson Galvin MD Date/Time: 10/08/24 08:21 Surgeon: Johnson Galvin MD Pre Op Diagnosis: stress incont Patient Data Age: 54 Gender: F Height: 1.69 m Weight: 68.2 kg Allergies Allergy/AdvReac Type Severity Reaction Status Date / Time metoclopramide Allergy Severe Other Verified 10/08/24 08:23 Sulfa (Sulfonamide Allergy Severe Anaphylactic Verified 10/08/24 08:23 Antibiotics) Shock droperidol Allergy Intermediate Other Verified 10/08/24 08:23 haloperidol Allergy Intermediate Other Verified 10/08/24 08:23 prochlorperazine Allergy Intermediate Other Verified 10/08/24 08:23 dihydoregotamine Allergy Severe Hypertensio Uncoded 10/08/24 08:23 n Home Medications ?Medication ?Instructions ?Recorded ?Confirmed ?Type amiloride 5 mg tablet 5 mg PO BID 09/29/24 09/29/24 History amlodipine 10 mg tablet 10 mg PO DAILY 09/29/24 09/29/24 History aripiprazole 20 mg tablet 20 mg PO DAILY 09/29/24 09/29/24 History baclofen 10 mg tablet 10 mg PO Q8H PRN spasms 09/29/24 09/29/24 History calcium carbonate 600 mg PO BID 09/29/24 09/29/24 History clonidine HCl 0.1 mg tablet 0.1 mg PO BID 09/29/24 09/29/24 History cyclosporine 0.05 % eye drops in a 1 drp EACH EYE Q12H 09/29/24 09/29/24 History dropperette (Restasis) dextromethorphan IR 45 1 tablet PO BID 09/29/24 09/29/24 History mg-bupropion ER 105 mg biphasic tablet (Auvelity) esketamine 84 mg (28 mg x 3) nasal 84 mg intranasal WEEKLY 09/29/24 09/29/24 History spray (Spravato) fluticasone 250 mcg-salmeterol 50 1 inh inhalation BID 09/29/24 09/29/24 History mcg/dose blistr powdr for inhalation folic acid 1 mg tablet 1 mg PO DAILY 09/29/24 09/29/24 History galcanezumab-gnlm 120 mg/mL 120 mg subcut MONTHLY 09/29/24 09/29/24 History subcutaneous pen injector (Emgality Pen) hydrocodone 5 mg-acetaminophen 325 1 tablet PO Q8H PRN pain 09/29/24 09/29/24 History mg tablet latanoprost 0.005 % eye drops 1 drp EACH EYE HS 09/29/24 09/29/24 History losartan 100 mg tablet 100 mg PO DAILY 09/29/24 09/29/24 History loteprednol etabonate 0.38 % eye 1 drp EACH EYE TID 09/29/24 09/29/24 History gel drops (Lotemax SM) meloxicam 15 mg tablet 15 mg PO DAILY 09/29/24 09/29/24 History metformin 500 mg tablet,extended 500 mg PO BID 09/29/24 09/29/24 History release 24 hr omeprazole 20 mg capsule,delayed 40 mg PO DAILY 09/29/24 09/29/24 History release ondansetron 4 mg disintegrating 4 mg PO Q8H PRN nausea and vomiting 09/29/24 09/29/24 History tablet propranolol 120 mg capsule,24 120 mg PO DAILY 09/29/24 09/29/24 History hr,extended release (Inderal LA) rimegepant 75 mg disintegrating 75 mg PO DAILY PRN migraine 09/29/24 09/29/24 History tablet (Nurtec ODT) headache rosuvastatin 10 mg tablet 10 mg PO HS 09/29/24 09/29/24 History semaglutide 0.25 mg or 0.5 mg (2 0.5 mg subcut WEEKLY 09/29/24 09/29/24 History mg/3 mL) subcutaneous pen injector (Ozempic) sucralfate 1 gram tablet 1 g PO QID 09/29/24 09/29/24 History tenapanor 50 mg tablet (Ibsrela) 50 mg PO BID 09/29/24 09/29/24 History zolpidem 10 mg tablet 10 mg PO HS 09/29/24 09/29/24 History Patient hx anesthesia problems: none Family hx anesthesia problems: none Results Review: All pre-operative results and documents have been reviewed as part of the pre-operative evaluation. [facility] Past Medical History Medical History (Updated 10/08/24 @ 08:21 by Kulwant Hensley DO) History of anxiety PTSD (post-traumatic stress disorder) Diabetes type 2, controlled Hyperlipidemia Hypertension Family History Family History Mother Diabetes mellitus Hypertension Family history of alcoholism Cerebrovascular accident Father Hypertension Family history of alcoholism Sibling Patient's sister is in good health Social History Social History Years smoked: 22 Smoking status: Former smoker Tobacco type: cigarettes Smoking end date: 01/27/22 Alcohol intake: current Substance use type: marijuana Other substance usage details: Medical marijuana daily Living arrangements: with family Spiritual care concerns: No Anes - Eval Final PreProcedure Day of Procedure 10/08/24 08:21 Patient weight: normal Heart: regular rate and rhythm Lungs: clear to auscultation and normal air movement Airway: Mallampati scale class II Neurological: alert and oriented Last oral intake: >/= 8 hours ASA classification: III Emergent: no Anesthetic plan: proceed Anesthesia type and monitoring: general GIVS and standard monitoring Results Review: All pre-operative results and documents have been reviewed as part of the pre-operative evaluation. Informed Consent: The patient's anesthetic plan and its attendant risks and benefits were discussed with the patient/family/POA. Questions were solicited and answers provided to the satisfaction of the patient/family/POA.
[2024-10-08] MEDS: LACTATED RINGERS 1,000 ML 30 ML IV CONT (08:55)
[2024-10-08 08:59] LABS: Glucose Point of Care 94 mg/dl (65-105)
[2024-10-08] MEDS: ceFAZolin 2 GM/D5W 50 ML 2 GM/50 ML BAG IVPB (09:25)
[2024-10-08] MEDS: BUPIVACAINE/EPINEPHRINE 0.5% 10 ML VIAL INFILTRATE (09:53)
--- NOTE | 2024-10-08 10:02 | W.PM.PROC2 ---
Procedure Note - Detailed Date of Procedure 10/08/24 Pre-op Diagnosis stress incont Post-op Diagnosis Same Procedure Performed mid urethral sling cystoscopy Surgeon Johnson Galvin MD Anesthesia MAC and Local Indications This is a female with confirm stress urinary incontinence. She desires surgical correction. She understands the risks of bleeding, infection, injury to the urinary tract, vaginal mesh extrusion, urinary tract mesh erosion, obstructive voiding requiring a secondary procedure, hip and leg pain, dyspareunia, inability to improve overactive bladder symptoms. She agrees to proceed. Description of Procedure She was correctly identified. Informed consent obtained. She was brought the operating room. She was given appropriate anesthesia. She was given appropriate perioperative antibiotics. A time-out performed. I marked out the site of the inner thigh incisions. I anesthetized the skin and made those incisions. I anesthetized the anterior vaginal wall over the mid urethra. I made a 1 cm incision. I dissected out laterally taking great care not to injure the refilled vaginal wall. I passed the helical trocars. First on the left. Then on the right. I did this from the thigh incision towards the vaginal incision. The sling was connected to the trocars and brought out through the thigh incision. I tensioned the sling appropriately. I cut and the plastic sheaths. I then closed the incision with 2 0 Vicryl. On cystoscopy there is no tumors or surgical artifact. There was no surgical artifact in the urethra. I cut the excess sling material. Close incisions with glue. She was awakened and transferred to the PACU in stable condition. Implants Urethral sling Drains No Packing No Pathology None sent Complications No immediate complications Condition Stable Disposition PACU
[2024-10-08 11:03] LABS: Glucose Point of Care 90 mg/dl (65-105)
[2024-10-08] MEDS: oxyCODONE HCL (*CRX) 5 MG TAB IR PO (12:04)
--- NOTE | 2024-10-08 12:18 | SUR.PHASEII ---
1209-No discharge orders, vm left for Dr. Galvin. Pt aware.
--- NOTE | 2024-10-08 12:36 | SUR.PHASEII ---
2112-Spoke with [facility] at office-will inform Dr Galvin re: discharge orders. States they (including him) are taking lunch at this time.
--- NOTE | 2024-10-08 12:41 | SUR.PHASEII ---
1235-Pt and aware we are awaiting response/orders from Dr. Galvin. Pt ready for discharge, aware to call for nurse if futher needs.
== END 2024-10-08 13:03 | disposition home or self-care (01) ==
PROVIDERS: Visit Provider Urology
PROC: (CPT 57288; principal; 2024-10-08 09:30)
DX: N39.3 Stress incontinence (female) (male) (principal); N32.81 Overactive bladder; E78.5 Hyperlipidemia, unspecified; I10 Essential (primary) hypertension; E11.9 Type 2 diabetes mellitus without complications; F41.9 Anxiety disorder, unspecified; F43.10 Post-traumatic stress disorder, unspecified; F12.90 Cannabis use, unspecified, uncomplicated; Z79.85 Long-term (current) use of injectable non-insulin antidiabetic drugs; Z79.51 Long term (current) use of inhaled steroids; Z79.891 Long term (current) use of opiate analgesic; Z79.84 Long term (current) use of oral hypoglycemic drugs; Z87.891 Personal history of nicotine dependence; Z82.49 Family history of ischemic heart disease and other diseases of the circulatory system
CPT/HCPCS: 57288; 36415; 80048; 82948; A9270; C1771; J0690; J2003; J2250; J2704; J3010; J7030; J7120